=== PATIENT | female | born 1985 | race Caucasian/White ===

== ENCOUNTER → 2017-09-22 21:05 | Outpatient (CLI) | payer MEDICAID, SELFPAY | DX: G47.33 Obstructive sleep apnea (adult) (pediatric) (principal) | CPT/HCPCS: 95810 ==

== ENCOUNTER → 2017-12-14 13:08 | Outpatient (CLI) | payer MEDICAID, SELFPAY | DX: G47.33 Obstructive sleep apnea (adult) (pediatric) (principal) | CPT/HCPCS: 95811 ==

== ENCOUNTER 2018-08-11 09:30 | Outpatient (RCR) | payer MEDICAID, SELFPAY ==
--- NOTE | 2018-07-26 12:43 | HP.PTEVAL ---
Patient's Visit Information JEANNIE CADENA is a 33 year old F referred to Physical Therapy by KARISHMA Lynn with a diagnosis of Lumbar pain., FM. Date of Evaluation: 07/26/18 Physical Therapist: Filemon Hyde, DPT, OCS, CSCS - Visit Plan Frequency: 2x /Week Duration: 4-6 Weeks Plan: 2x/week x 3-6 starting in aquatic therapy for LB ext ROM, HS, gastroc, pec stretches, general postural and core and LE strength to tolerance. - Subjective Findings: Pain management wants scans and she has to try physical therapy. Had aquatherapy a couple years ago whcih did nto help. Has had pain in legs and arms for last couple years. Legs do feel weaker L>R. Backa nd neck hurt daily. Intermittently. Neck to 5/10 adn sometimes pain down to hands adn forearms. No numbness tingling UE. LB hurts i don't notice it It is just there LBP is worse on periods. 7/10, some days 0/10. No numbness or tingling in legs. Just started pain managemnet last January. Had it at a different visit prior. No other treatments. Gets pain meds from ER now and then. Sleep is not great 3-4 hours per night whcih is normal for her. Not overly painful in morning. Pain is worse with moving adn breathing. Repetitive motion. Standing in one position is worst part. Not employed. Just finished school. No hobbies. Spends day cleaning. Has to do it in moderation. Has OCD. - Pain neck pain Pain Intensity (Out of 10): 0 Pain Intensity Range: 0, 7 LBP Pain Intensity (Out of 10): 7 Pain Intensity Range: 0, 5 - Objective Walks I without deficits today. Trasnfers I. C/s aROM WNl and without pain today 60 ext, 70 B rotation, full flexion. Tender to palpation pericervical mm. reflexes 1/3 bi and tricep. Sensation UE WNl to gross light touch. L/S AROM ext max limited and painful R, R SB min limited and painful. L SB OK adn flexion is good. reflexes patella and achilles 1/3 B. Sensation LE WNl to gross light touch. Strength R knee ext 3+ to 4 inconsistent. HS 4- to 4 inconisstent, ankle DF 4- B. L knee 4/5. Hip 4/5 B. UE strength4-/5 without myotomal abnormalities. + R c/s Lumbar compression. - slump adn SLR. HS and gastroc mod tight as are pecs. - Goals Goal 1:: L/S ext min limitecd adn painfree Goal Time Frame: 4-6 Weeks Goal 2:: Pateint feel 50% better with pain 0-3/10 intermittently Goal Time Frame: 4-6 Weeks Goal 3:: Pt I in approp ex to minimize future problems. Goal Time Frame: 4-6 Weeks - Rehabilitation Potential Physical Therapy Diagnosis: FMa nd low back radiculapathy. Rehabilitation Potential: Questionable - Anticipated Interventions Patient/Client Instruction: Educate patient on: Condition, Plan of Care For the Purpose of:: To decrease pain, To increase ROM, To increase tolerance to activity/condition/position Therapeutic Exercise to Include: Strength training, Postural training, In an aquatic setting, Passive ROM, Active ROM, Dynamic Lumbar Stabilization For the Purpose of:: To improve muscle performance and motor function, To increase tolerance to activity/condition/position, To improve ability of physical actions for home/community/work/leisure Thank you for the opportunity to evaluate your patient. For Medicare and Medicare HMO plans, please review the plan of care and approve it. It will need to be FAXED BACK to us at [phone] for Medicare purposes. For Medicare only, by signing this I certify the plan of care. Please let me know if there are questions or concerns regarding this plan of care. Physician Signature: Date:
--- NOTE | 2018-08-18 11:03 | HP.PTDCSUM ---
HP - PT D/C Summary It has been my pleasure to treat JEANNIE CADENA under orders from SAMI LynnC, for the diagnosis of Lumbar pain., FM for a total of 4 visit(s). Discharge Date: 08/18/18 Please see the following information for a summary of their discharge status. - Subjective Subjective: States her pain was slightly improved after yesterday's AT visit. Feeling like, 20/10 pain today. Avoiding the ED or urgent care. - Pain neck pain Pain Intensity (Out of 10): 0 LBP Pain Intensity (Out of 10): 10 BLEs Pain Intensity (Out of 10): 10 - Overall Improvement % Improvement: 0 - Objective Objective/Function: Encouraged to go to urgent care or ED if pain persists/progresses. Reports entering water early than instructed at last appt - education on reasons to only get in the water 15 mins early. Able to tolerate several newly added trunk stabilization exc. Cues throughout for reduced shldr elevation, given as HEP assigment. Lacking awarness to neutral spine requiring cues mostly for abdominal bracing (particularly with wall push-ups), however also for glute bracing with DLP exc d/t upward buoyant pull of water on pt's LEs. - Goals Goal 1:: L/S ext min limitecd adn painfree Goal 2:: Pateint feel 50% better with pain 0-3/10 intermittently Goal 3:: Pt I in approp ex to minimize future problems. - Plan Plan: Progress UE Core to alternting arms next. Limit increased WBing and possibly add greater NWBing LE exc if pain remains elevated. - D/C Information Discharge Comments: Pt called to cancel all appointments stating she is in too much pain. She has had 3 in pool visits adn stated she was feeling sightly better at 20/10 pain. She reequested to be discharged. If there are questions or concerns regarding this patient's physical therapy, please feel free to call me at [phone]. Thank you for the referral of this patient. Sincerely, Filemon Hyde, DPT, OCS, CSCS
== END 2018-08-11 19:00 | disposition home or self-care (01) ==
LOC: PT 09:30
PROVIDERS: Referring Provider Nurse Practitioner Family; Visit Provider Nurse Practitioner Family
DX: M54.5 Low back pain (principal); M54.17 Radiculopathy, lumbosacral region; M46.96 Unspecified inflammatory spondylopathy, lumbar region; M79.7 Fibromyalgia
CPT/HCPCS: 97113; 97162

== ENCOUNTER → 2018-09-16 12:11 | Outpatient (CLI) | payer MEDICAID, SELFPAY ==
--- NOTE | 2018-09-16 12:16 | RAD_ITS ---
STUDY: X-RAY - LUMBAR SPINE REASON FOR EXAM: Female, 33 years old. Lower back pain TECHNIQUE: 3 view(s) of the lumbar spine were obtained. COMPARISON: None FINDINGS: Normal lumbar lordosis. There is no substantial scoliosis. There is a normal alignment of the vertebrae. Normal vertebral bodies and endplates. Normal disc space heights. The soft tissue structures are unremarkable. RAD/Lumbar Spine 2 or 3 Views IMPRESSION: Normal x-ray examination of the lumbar spine. Electronically Signed: Arnulfo Hancock, at 8:18 EDT Tel , Service support ,
== END ==
PROVIDERS: Referring Provider Nurse Practitioner Family; Visit Provider Nurse Practitioner Family
DX: M51.37 Other intervertebral disc degeneration, lumbosacral region (principal)
CPT/HCPCS: 72100

== ENCOUNTER 2018-12-20 07:57 | Emergency (ER) | payer MEDICAID, SELFPAY ==
[2018-12-20 07:59] VITALS: BP 145/112; PULSE 91; RESP 22; TEMP 36.5; O2SAT 98; BMI 54.8
--- NOTE | 2018-12-20 08:16 | ED.DCSUM_ITS ---
- ER Visit Summary Date of Service: 12/20/18 Chief Complaint: Cramping to her arms and legs. History of Present Illness: The patient is a 33 F with a history of chronic discomfort to her arms and legs a specific diagnosis. One time it might be fibromyalgia she states is gotten away from that diagnosis. Basically from time to time she will get crampy sensation and muscular and soft tissue aches of her upper and lower extremities. She denies any falls or trauma. Patient does have a history of anxiety and is on medications for that. Physical Examination: Vital signs are stable and afebrile. Initial blood pressure is elevated 145/112. Patient does not look septic or toxic. No acute distress. HEENT exam unremarkable. Moist membranes. Neck nontender no lymphadenopathy. Lungs clear to auscultation bilaterally. Heart regular rhythm no murmur. Abdomen is obese but soft and nontender. Normal bowel sounds. Patient is moving all 4 extremities. She describes her muscles and joints as being stiff and uncomfortable. However they are neurovascularly intact with normal radial pulses. Normal manager corporate communications strength. Normal dorsi plantar flexion. There are no signs of trauma. She does have sunburn on her upper extremities and shoulders. Back is nontender. Neurologically she is awake and alert. Test Results: No testing needs to be done today in the emergency department. Emergency Department Course and Treatment: Patient has acute on chronic musculoskeletal pain flareups. This is a chronic problem with her. She needs to follow-up for outpatient work-up and possible diagnosis. She denied discussed options she told me one time that Dilaudid and tramadol worked well for her. I explained to her this would not be something we would normally prescribe narcotic pain medication. She will be given an IM injection of Toradol and discharged. Treatment Plan: Motrin and Tylenol for pain. Plenty of fluids. Follow-up with primary care physician. Patient may need to see a air pollution auditor. Disposition: Discharge Impression: Acute on chronic musculoskeletal pain syndrome of uncertain This note was generated with Nearpod dictation software. It may contain incorrect words, spelling, and punctuation that were not noted in review of the chart prior to signing ED Disposition - Plan for ED Patient: Referrals: [facility] Doctor,Out of [Primary Care Provider] -
--- NOTE | 2018-12-20 08:19 | DCINST.ED_ITS ---
ED Disposition - Plan for ED Patient: Disposition: Home or Assisted Living Instructions: The Cycle of Chronic Pain Referrals: [facility],Out of [Primary Care Provider] - As soon as possible Additional Instructions: Motrin and Tylenol for pain. Plenty of fluids and rest. You may want your primary care physician to refer you to a carbon electrodes supervisor who is a specialist in joint and soft tissue inflammatory diseases that can work you up for a possible diagnosis.
[2018-12-20] MEDS: Ketorolac 60 MG/2 ML Vial IM (08:39)
== END 2018-12-20 08:50 | disposition home or self-care (01) ==
LOC: ED 08:25
PROVIDERS: Emergency Provider Emergency Medicine
DX: G89.4 Chronic pain syndrome (principal); M79.602 Pain in left arm; M79.601 Pain in right arm; M79.605 Pain in left leg; M79.604 Pain in right leg; F41.9 Anxiety disorder, unspecified; Z72.0 Tobacco use
CPT/HCPCS: 96372; 99282

== ENCOUNTER → 2019-08-23 07:43 | Outpatient (CLI) | payer MEDICAID, SELFPAY ==
--- NOTE | 2019-08-23 07:46 | RAD_ITS ---
STUDY: X-RAY - CERVICAL SPINE REASON FOR EXAM: Female, 34 years old. CHRONIC NECK PAIN, BILATERAL ARM PAIN -- NKI TECHNIQUE: 5 view(s) of the cervical spine were obtained. COMPARISON: 11/09/2014 FINDINGS: Normal anterior atlantoaxial articulation. Normal odontoid process. There is straightening of the normal cervical lordosis. Normal vertebral bodies and endplates. Normal disc space heights. Normal visualized intervertebral neuroforamina. The soft tissue structures are unremarkable. RAD/Cerv Spine 4 or 5 Views IMPRESSION: Straightening of the normal lordotic curvature possibly from muscular spasm. Electronically Signed: Alcides Jacob MD at 15:53 EST Tel , Service support ,
== END ==
PROVIDERS: Referring Provider Nurse Practitioner Family; Visit Provider Nurse Practitioner Family
DX: M54.2 Cervicalgia (principal)
CPT/HCPCS: 72050

== ENCOUNTER 2019-09-29 17:22 | Emergency (ER) | payer MEDICAID, SELFPAY ==
[2019-09-29 17:23] VITALS: BP 159/112; PULSE 117; RESP 18; TEMP 37.1; O2SAT 97; BMI 54.8
--- NOTE | 2019-09-29 17:43 | ED.VIS.GEN ---
History of Present Illness Chief Complaint: Hyperglycemia Informant: Patient Context: Gradual Onset Current Severity: Moderate Maximum Severity: Moderate Narrative: Patient presents secondary to elevated blood sugar along with increased thirst and increased urination. Last February she was placed on metformin because her psychiatrist and placed on Seroquel which will tend to make blood sugars increase. Seroquel dose was increased. Patient states she ran out of metformin about a month ago. She had been taking her blood sugars while on metformin and they were typically in the low 100 range. She states the highest blood sugar she remembers seeing is 180. She has now been out of metformin for the past month but is still taking her Seroquel. She has noted increased urination, increased thirst, and some mild diarrhea. She checked her blood sugar this afternoon and found it to be 470. Past Medical History - Allergies and Home Meds Allergies/Adverse Reactions: Allergies amitriptyline Adverse Reaction (Verified 09/29/19 17:26) NEEDS FOLLOW-UP duloxetine [From Cymbalta] Adverse Reaction (Verified 09/29/19 17:26) NEEDS FOLLOW-UP mirtazapine [From Remeron] Adverse Reaction (Verified 09/29/19 17:26) NEEDS FOLLOW-UP Primary Care Physician: [facility] Doctor,Out of [NON-STAFF] - Prior records reviewed: Yes Smoking Status: Current every day smoker Review of Systems General: Denies: Chills, Fever Eyes: Denies: Visual changes - bilaterally ENT: Denies: Bilateral ear pain Cardiovascular: Denies: Chest pain Respiratory: Denies: Dyspnea, Cough Gastrointestinal: Reports: Diarrhea. Denies: Abdominal pain, Nausea, Vomiting Genitourinary: Reports: Frequency. Denies: Dysuria Musculoskeletal: Denies: Myalgias, Extremity Pain Skin: Denies: Rash Neurological: Denies: Headache Endocrine: Reports: Polyuria, Polydipsia Allergy: Denies: Uticaria Physical Exam Vital Signs/Narrative: Vital Signs Temp Pulse Resp BP Pulse Ox 09/29/19 17:23 98.8 F 117 H 18 159/112 H 97 Inital Vital Signs reviewed: Yes General: Well nourished, Well developed Head: Normocephalic ENT: Dry mucous membranes Neck: Supple Cardiovascular: Regular rate, Regular rhythm Respiratory: No distress, CTA bilaterally Abdomen: Soft, Nontender Extremities: Nontender Skin: Normal color, No rash Neurological: Alert, Oriented x3 Psychological: Normal affect Diagnostic/Tx/Re-eval Laboratory Results 09/29/19 09/29/19 09/29/19 17:30 17:30 17:41 WBC 14.9 H RBC 4.59 Hgb 13.7 Hct 41.4 MCV 90.2 MCH 29.8 MCHC 33.1 RDW Std Deviation 42.5 RDW Coeff of [place] 13.1 Plt Count 364 MPV 9.5 Immature Gran % (Auto) 0.400 Neut % (Auto) 64.3 Lymph % (Auto) 30.1 [place] % (Auto) 4.8 Eos % (Auto) 0.0 Baso % (Auto) 0.4 Absolute Neuts (auto) 9.6 H Absolute Lymphs (auto) 4.48 Nucleated RBC % 0 Reactive Lymphocytes 1+ Platelet Estimate ADEQUATE Plt Morphology Comment LARGE RBC Morphology N CHROM Anisocytosis RARE Macrocytosis RARE Sodium 136 Potassium 4.0 Chloride 105 Carbon Dioxide 22.0 Anion Gap 9 BUN 9 Creatinine 0.92 Estim Creat Clear Calc 85.37 Est GFR (MDRD) Af Amer 90 Est GFR (MDRD) Non-Af 75 BUN/Creatinine Ratio 9.7 L Glucose 430 H Hemoglobin A1c Calcium 8.7 POC Glucose 419 H 09/29/19 17:50 WBC RBC Hgb Hct MCV MCH MCHC RDW Std Deviation RDW Coeff of [place] Plt Count MPV Immature Gran % (Auto) Neut % (Auto) Lymph % (Auto) [place] % (Auto) Eos % (Auto) Baso % (Auto) Absolute Neuts (auto) Absolute Lymphs (auto) Nucleated RBC % Reactive Lymphocytes Platelet Estimate Plt Morphology Comment RBC Morphology Anisocytosis Macrocytosis Sodium Potassium Chloride Carbon Dioxide Anion Gap BUN Creatinine Estim Creat Clear Calc Est GFR (MDRD) Af Amer Est GFR (MDRD) Non-Af BUN/Creatinine Ratio Glucose Hemoglobin A1c 9.0 H Calcium POC Glucose - Medical Decision Making Patient was ordered 2 L of IV fluid. After the first liter is complete she is asking if she can go home. Blood sugar is repeated and is down to 302. She states that she was able to nut picker a refill of her metformin will start taking this regularly. ED Disposition - Plan for ED Patient: Disposition: Home or Assisted Living Diagnosis: Hyperglycemia Instructions: Hyperglycemia (High Blood Sugar) Referrals: [facility],Out of [NON-STAFF] -
[2019-09-29 17:45] LABS: Bedside Glucose 419 mg/dL (70-110)
[2019-09-29] MEDS: 0.9% Normal Saline 1,000 ML 1000 ML IV (18:01)
[2019-09-29 18:02] LABS: Absolute Lymphocyte Count 4.48 X10^3/uL (0.83-4.51); Absolute Neutrophil Count 9.6 X10^3/uL (2.0-7.7); Basophil# 0.06 X10^3/uL; Basophil% 0.4 % (0-1); Hematocrit 41.4 % (37-47); Hemoglobin 13.7 g/dL (12.0-15.0); Lymphocyte # 4.48 X10^3/ul (4.0); Lymphocyte % 30.1 % (19-41); Mean Corp Hgb Conc 33.1 g/dL (32-36); Mean Corpuscular Hgb 29.8 pg (27.0-32.0); Mean Corpuscular Volume 90.2 fL (81-99); Mean Platelet Vol. 9.5 fl (6.2-12.0); Monocyte# 0.71 X10^3/uL; Monocyte% 4.8 % (0-10); NRBC Flagged by Analyzer 0 % (0-5); Neutrophil # 9.57 X10^3/uL (2.7-7.7); Neutrophil % 64.3 % (47-70); POSITIVE MORPHOLOGY YES; Platelet Count 364 K/mm3 (150-450); RBC Distribution Width CV 13.1 % (11.6-14.6); RBC Distribution Width SD 42.5 fl (35.1-43.9); Red Blood Count 4.59 M/mm3 (4.2-5.4); White Blood Count 14.9 K/mm3 (4.4-11.0)
[2019-09-29 18:11] LABS: Differential Indicated SCAN CRITERIA MET
[2019-09-29 18:31] LABS: Reactive Lymphocyte 1+
[2019-09-29 18:32] LABS: Anisocytosis RARE; Macrocytosis RARE; Platelet Estimate ADEQUATE (ADEQ); Platelet Morphology LARGE; Red Cell Morphology N CHROM NORMAL (NORM C&C)
[2019-09-29 18:35] LABS: Anion Gap 9 (5-15); BUN 9 mg/dL (7-18); BUN/Creat Ratio 9.7 RATIO (10-20); Calcium,Total 8.7 mg/dL (8.5-10.1); Chloride 105 mmol/L (98-107); Creatinine, Serum 0.92 mg/dL (0.55-1.02); EST Glomerular Filtration Rate 75 mL/min (>60); Est Glom Filt Rate - Afr Amer 90 mL/min (>60); Estimated Creatinine Clearance 85.37 ml/min; Glucose 430 mg/dL (74-106); Sodium Level 136 mmol/L (136-145)
[2019-09-29 19:26] LABS: Bedside Glucose 302 mg/dL (70-110)
[2019-09-29 19:36] LABS: Internal QC Validated? YES +Cl - CLEAR BKGD; Pregnancy, Serum, hCG Quali. NEGATIVE Negative
[2019-09-29 19:49] VITALS: BP 143/98; PULSE 99; RESP 16; O2SAT 98
== END 2019-09-29 19:51 | disposition home or self-care (01) ==
PROVIDERS: Emergency Provider Emergency Medicine
DX: R73.9 Hyperglycemia, unspecified (principal); F17.200 Nicotine dependence, unspecified, uncomplicated
CPT/HCPCS: 80048; 82962; 83036; 84703; 85025; 96360; 96361; 99283; J7030; A4216

== ENCOUNTER 2019-11-17 18:36 | Emergency (ER) | payer MEDICAID, SELFPAY ==
[2019-11-17 18:38] VITALS: BP 143/106; PULSE 106; RESP 19; TEMP 36.4; O2SAT 97; BMI 56.7
[2019-11-17] MEDS: Ondansetron 4 MG/2 ML Vial IV (19:54)
[2019-11-17] MEDS: Morphine 4 MG/ML Syringe IV (19:56)
--- NOTE | 2019-11-17 20:00 | RAD_ITS ---
STUDY: X-RAY CHEST REASON FOR EXAM: Female, 34 years old. Patient complains of back pain TECHNIQUE: Single AP portable view of the chest. COMPARISON: 10/08/2016. FINDINGS: The lungs are clear and expanded. There is no demonstrated pleural abnormality. Normal size heart. Normal mediastinum and patricia. Normal visualized pulmonary arteries. Normal visualized aortic arch and descending thoracic aorta. Normal visualized thoracic spine. Normal visualized ribs, clavicles, and shoulders. There is no demonstrated abnormality of the visualized soft tissue structures of the upper abdomen. RAD/Chest 1 View (Portable) IMPRESSION: Normal x-ray examination of the chest. Electronically Signed: Valentine Lawler MD at 20:28 EDT Tel , Service support ,
[2019-11-17 20:21] LABS: Anion Gap 6 (5-15); BUN 9 mg/dL (7-18); BUN/Creat Ratio 15.8 RATIO (10-20); Calcium,Total 9.1 mg/dL (8.5-10.1); Chloride 109 mmol/L (98-107); Creatinine, Serum 0.57 mg/dL (0.55-1.02); D-Dimer Quantitative (DVT/PE) 0.39 FEU/ug/m (0.27-0.49); EST Glomerular Filtration Rate 130 mL/min (>60); Est Glom Filt Rate - Afr Amer 157 mL/min (>60); Estimated Creatinine Clearance 137.79 ml/min; Glucose 137 mg/dL (74-106); Potassium 3.7 mmol/L (3.5-5.1); Sodium Level 140 mmol/L (136-145)
--- NOTE | 2019-11-17 20:46 | ED.VISSUMM ---
- ER Visit Summary Date of Service: 11/17/19 Chief Complaint: [Back pain] History of Present Illness: The patient is a 34 F [does the emergency department with complaint of back pain x5 days. Patient states that she recalls 5 days ago being in bed and stretching and arching her back and had sudden onset of pain in her left mid back. She denies any pain rating down her legs. She denies any change in bowel bladder function. She denies weakness in extremities. She denies urinary symptoms. Patient is currently in pain management for history of back spasms and she is on baclofen for that. She is currently not on any narcotics. She denies any recent travel or surgery. She does state that the pain is worse with breathing and moving.] Physical Examination: [HEENT-PERRLA, EOMI. Cranial nerves II through XII grossly intact. TMs clear. Mucous membranes moist. No adenopathy. Cardiovascular-regular rate and rhythm without murmur or ectopy Lungs-clear to auscultation, chest wall stable without crepitus or subcu emphysema Abdomen-normoactive bowel sounds, soft, nontender, no rebound or rigidity, no peritoneal signs. Back exam-patient has tenderness palpation over the left posterior ribs with tenderness also of the thoracic paraspinal musculature on the left. Palpation reproduces her pain. She has negative straight leg raises. Deep tendon reflexes are plus 2 out of 4 bilaterally at the patella Achilles. Patient has normal L5 extension. Extremities-intact ?4, normal range of motion, normal pulses, atraumatic] Test Results: [Chemistries unremarkable. D-dimer was normal. Chest x-ray was normal.] Emergency Department Course and Treatment: [Received 4 mg of morphine and 4 mg of Zofran IV.] Treatment Plan: [We will be given a prescription for 10 [place] for severe pain and advised to follow-up with her pain management doctor within the next 2 to 3 days.] Disposition: Discharged home in stable condition] Impression: [Thoracic muscle strain] This note was generated with Optimal Blue dictation software. It may contain incorrect words, spelling, and punctuation that were not noted in review of the chart prior to signing ED Disposition - Plan for ED Patient: Referrals: [facility] [Other]
--- NOTE | 2019-11-17 20:48 | DCINST.ED_ITS ---
ED Disposition - Plan for ED Patient: Instructions: ED Spasm Back No Trauma Prescriptions: Hydrocodone Bitart/Apap 5-325 [[place] 5MG-325MG] 1 tab PO Q4H PRN PRN 2 Days #10 tab PRN Reason: Pain Prescription Printed Referrals: [facility] BOW[facility] [Other] Additional Instructions: see your pain management doctor in 2-3 days
[2019-11-17 21:23] VITALS: BP 136/98; PULSE 84; RESP 20; O2SAT 98
--- OUTSIDE RECORDS SUMMARY | 2020-04-09 16:18 | XMS RPT_ITS | CCD ---
:1985 External Reference #:[id number] Author Organization [facility] Care Team Providers Name Role Phone Pavelko Unavailable Unavailable PROVIDER Unavailable Unavailable Pavelko Unavailable Unavailable BRIANNA, M Unavailable Unavailable PROVIDER Unavailable Unavailable Pavelko Unavailable Unavailable BRIANNA, M Unavailable Unavailable PROVIDER Unavailable Unavailable Pavelko Unavailable Unavailable GARCIA, (PST SUPERVISOR) Unavailable Unavailable KIRIT Unavailable Unavailable OCAMPO, S Unavailable Unavailable VETOVITZ, (PA) Unavailable Unavailable SALAS Unavailable Unavailable VETOVITZ, (PA) Unavailable Unavailable SALAS Unavailable Unavailable JEWELL, (PA) Unavailable Unavailable VETOVITZ, (PA) Unavailable Unavailable VETOVITZ, (PA) Unavailable Unavailable SALAS Unavailable Unavailable SALAS Unavailable Unavailable VETOVITZ, (PA) Unavailable Unavailable GARCIA, H Unavailable Unavailable OCAMPO, S Unavailable Unavailable SALAS Unavailable Unavailable SALAS Unavailable Unavailable OCAMPO, S Unavailable Unavailable OCAMPO, S Unavailable Unavailable Venkata M. Unavailable Unavailable Venkata, M. Unavailable Unavailable Foorsov Unavailable Unavailable Foorsov Unavailable Unavailable Pavelko, R Unavailable Unavailable Pavelko, R Unavailable Unavailable Foorsov Unavailable Unavailable Foorsov Unavailable Unavailable Pavelko, R Unavailable Unavailable Ackerman, A Unavailable Unavailable Ackerman, A Unavailable Unavailable Pavelko, R Unavailable Unavailable Pavelko, R Unavailable Unavailable Andrefsky, C Unavailable Unavailable Andrefsky, C Unavailable Unavailable Pavelko, R Unavailable Unavailable Andrefsky, C Unavailable Unavailable Andrefsky, C Unavailable Unavailable Pavelko, R Unavailable Unavailable Jazmín, R Primary Care Provider Allergies Reported Allergen Reaction(s) Severity Date of Onset Location amitriptyline Other (See Comments) 04-20-2017 - [facility] Translations: [ [facility] AMITRIPTYLINE HCL, Repositor y AMITRIPTYLINE HCL] Amitriptyline AOF [facility] on[facility] Translations: [ Elavil] [facility] Repository Amitriptyline 02-11-2015 - [facility]- [place]HA ([id number]) DULoxetine Other (See Comments) 04-20-2017 [facility] Translations: [ Main [facility] DULOXETINE, DULOXETINE] Repo sitory DULoxetine AOF Unknown [facility] nal Translations: [ Health Syste m Trenaalta] Repository DULoxetine 02-11-2015 - [facility]- [place] ([address]77) gabapentin Other (See Comments) Unknown 02-11-2015 [facility] Translations: [ Main [place] GABAPENTIN, GABAPENTIN, Repo sitory gabapentin] NO KNOWN ALLERGIES [facility] Translations: [ NO Main [place] us KNOWN ALLERGIES, NO Reposito ry KNOWN ALLERGIES] Medications Medication Name Sig Date Prescriber Location Baclofen baclofen (LIORESAL) 10 Historical [facility]- MG tablet Take 10 mg by Provider HA LONG ([id number]) mouth 2 times daily 0 Historical Active Provider Blood Glucose Blood Glucose 05-02-2018 [facility] alth- Monitoring Suppl Monitoring Suppl HA LONG (91942) (FREESTYLE FREEDOM (FREESTYLE FREEDOM LITE) w/Device KIT LITE) w/Device KIT Indications: Abnormal glucose 1 kit by Does not apply route daily 1 kit 0 05/02/2018 Active busPIRone busPIRone (BUSPAR) 10 Historical [facility]- MG tablet Take 10 mg by Provider HA LONG (45279) mouth 2 times daily 0 Historical Active Provider metFORMIN metFORMIN (GLUCOPHAGE) 10-06-2019 [facility]- 1000 MG tablet [place] (85357 ) Indications: Type 2 diabetes mellitus with hyperglycemia, without long-term current use of insulin (HCC) Take 1 tablet by mouth 2 times daily (with meals) 180 tablet 1 10/06/2019 Active nabumetone nabumetone (RELAFEN) Historical [facility] ealth- 500 MG tablet Take 500 Provider MERCEDES Darrell (45717) mg by mouth 2 times Historical daily 0 Active Provider Norethindrone norethindrone 09-26-2019 [facility]- (AYGESTIN) 5 MG tablet MERCEDES Darrell (30775) Take 1 tablet by mouth daily To be taken days 1-20 each month. 30 tablet 11 12/21/2019 Active Ondansetron ondansetron (ZOFRAN) 4 06-07-2018 [facility]- MG tablet Indications: Edu LONG Y (97542) Nausea Take 1 tablet by mouth 3 times daily as needed for Nausea or Vomiting 30 tablet 0 06/07/2018 Active pantoprazole pantoprazole (PROTONIX) 10-23-2019 [facility]- 40 MG tablet [place] (75337) Indications: Gastroesophageal reflux disease, esophagitis presence not specified Take 1 tablet by mouth every morning (before breakfast) 90 tablet 1 10/23/2019 Active pregabalin pregabalin (LYRICA) 100 Historical [facility]- MG capsule Take 100 mg Provider Edu LONG Y (79852) by mouth daily. 0 Historical Active Provider QUEtiapine QUEtiapine (SEROQUEL) Historical [facility]- 25 MG tablet Take 25 mg Provider HA LONG (44678) by mouth as needed 0 Active QUEtiapine (SEROQUEL XR) 150 MG Historical [place] ([address]) TB24 extended release tablet Take 150 mg by mouth daily 0 Active vortioxetine VORTIoxetine (TRINTELLIX) 5 MG 11-27-2019 [facility], [place] tablet Take 2 tablets by mouth (23862) daily 1 tablet 0 11/27/2019 Active Problems Active Problems Category Problem Name Status Date Location Abdominal pain Epigastric pain Active [facility] [place], [place] ([address]) Acute and chronic Hypertrophy of tonsils Active 09-18-2011 - [facility], tonsillitis AND adenoids [place] ([address]) Esophageal disorders Gastro-esophageal Active 05-28-2017 - [facility] reflux disease without (0000 0) esophagitis Mood disorders Major depressive Active 06-30-2016 - [facility] disorder, single (47841) episode, unspecified Other liver diseases Fatty (change of) Active 06-07-2017 - [facility] liver, not elsewhere (65844) classified Other nervous system Ulnar neuropathy Active 05-17-2017 - [facility], disorders [place] ([address]) Other nervous system Lesion of ulnar nerve, Active 05-01-2017 - [facility] disorders left upper limb (21300) Other nutritional; Obesity, unspecified Active 07-14-2017 - [facility] endocrine; and (78665) metabolic disorders Other nutritional; Morbid obesity [facility]-27-2017 [facility] [place] [place] ([address]) metabolic disorders Residual codes; Obstructive sleep apnea Active 09-18-2011 - [facility], unclassified syndrome [place] ([address]) Substance-related Nicotine dependence, Active 07-21-2017 - [facility] disorders unspecified, (69873) uncomplicated Unclassified Family history of other Active 04-27-2017 [facility] endocrine, nutritional (0000 0) and metabolic diseases Unclassified Unknown / UNK(Unknown) Active 02-22-2017 - [facility] (0000 0) Past or Other Problems Category Problem Name Status Date Location Allergic reactions Allergy status to Completed 07-21-2017 [facility] other drugs, System (28355) medicaments and biological substances status Biliary tract disease Calculus of Completed 06-07-2017 [facility] gallbladder with System (000 00) chronic cholecystitis without obstruction Chronic obstructive Bronchitis, not Completed 07-21-2017 [facility] pulmonary disease and specified as acute or System (17431) bronchiectasis chronic Medical Encounter for other Completed 05-28-2017 - [facility] alth examination/evaluation preprocedural Syst em (23252) examination Nonspecific chest pain Chest pain Completed 03-20-2019 - [facility] [place], [place] ([address]) Other connective tissue Muscle pain Completed 03-20-2019 - [facility] [place], disease [place] ([address]) Other connective tissue Fibromyalgia Completed 06-30-2016 [facility] [place], disease [place] ([address]) Other non-traumatic Pain in unspecified Completed 04-06-2017 - [facility] joint disorders joint (52166) Unclassified M79.7 02-22-2017 - [facility] ([address]) Results Result Name Value Range Unit Interpretation Flag Date Location us abdomen complete on 2020-03-08 US Abdomen Patient Name: KARISHMA PICKARD Normal 03-08-2020 [facility] Complete System (78638) Ultrasound Exam Date/Time 03/08/2020 08:05:00 EDT Exam US Abdomen Complete Ordering Physician OLIVE PRUITT Accession Number [id number] CPT4 Codes 96368 () Reason For Exam pain after eating Report SONOGRAM OF THE UPPER ABDOMEN History: Abdominal pain after eating, prior cholecystectomy Findings: Sonogram of the upper abdomen shows mild fatty carol er. The spleen, pancreatic head and proximal body, and visualized upper ab dominal aorta and IVC are unremarkable. The pancreatic tail and distal body could not be clearly visualized for proper evaluation due to degrading bowel gas artifacts. The gallbladder is not visualized (cholecystectomy). There i s no intrahepatic bile ducts dilatation. The common bile duct measures 3.5 mm in diameter . The partially visualized right and left kidneys measure 12 .3 x 4.4 x 5.3 cm and 11.9 x 5.8 x 7.1 cm respectively without hydronephrosis. The re is no ascites in the upper abdomen. IMPRESSION: Fatty liver. Cholecystectomy. No biliary dilatation. Pancreas is not adequately visualized. Report Dictated on Final Dictating Physician: MD SINGH AHMAD Signed Date and Time: 03/08/2020 9:02 am Signed by: MD SINGH AHMAD Transcribed Date and Time: 03/08/2020 9:03 No panel information on 2020-03-08 [facility] Incoming [facility]iology Results From [facility] - 2019 9:04 AM EDT 03-08-2020 [place], [place] ([address]) Patient Name: KARISHMA PICKARD ---Ultrasound--- Exam Date/Time 03/08/2020 08:05:00 EDT Exam US Abdomen Complete Ordering Physician OLIVE PRUITT Accession Number [id number] CPT4 Codes 66396 () Reason For Exam pain after eating Report SONOGRAM OF THE UPPER ABDOMEN History: Abdominal pain after eating, prior cholecystectomy Findings: Sonogram of the upper abdomen shows mild fatty carol er. The spleen, pancreatic head and proximal body, and visualized upper ab dominal aorta and IVC are unremarkable. The pancreatic tail and distal body could not be clearly visualized for proper evaluation due to degrading bowel gas artifacts. The gallbladder is not visualized (cholecystectomy). There i s no intrahepatic bile ducts dilatation. The common bile duct measures 3.5 mm in diameter . The partially visualized right and left kidneys measure 12 .3 x 4.4 x 5.3 cm and 11.9 x 5.8 x 7.1 cm respectively without hydronephrosis. The re is no ascites in the upper abdomen. IMPRESSION: Fatty liver. Cholecystectomy. No biliary dilatation. Pancreas is not adequately visualized. Report Dictated on --- Final --- Dictating Physician: MD SINGH AHMAD Signed Date and Time: 03/08/2020 9:02 am Signed by: MD SINGH AHMAD Transcribed Date and Time: 03/08/2020 9:03 Patient Name: KARISHMA PICKARD [place], [place] [id number] ([id number]) ---Ultrasound--- Exam Date/Time 03/08/2020 08:05:00 EDT Exam US Abdomen Complete Ordering Physician OLIVE PRUITT Accession Number [id number] CPT4 Codes 23090 () Reason For Exam pain after eating Report SONOGRAM OF THE UPPER ABDOMEN History: Abdominal pain after eating, prior cholecystectomy Findings: Sonogram of the upper abdomen shows mild fatty liver. The spleen, pancreatic head and proximal body, and visualized upper abdominal aorta and IVC are unremarkable. The pancreatic tail and distal body could not be clearly visualized for proper evaluation due to degrading bowel gas artifacts. The gallbladder is not visualized (cholecystectomy). There is no intrahepatic bile ducts dilatation. The common bile duct measures 3.5 mm in diameter . The partially visualized right and left kidneys measure 12.3 x 4.4 x 5.3 cm and 11.9 x 5.8 x 7.1 cm respectively without hydronephrosis. There is no ascites in the upper abdomen. IMPRESSION: Fatty liver. Cholecystectomy. No biliary dilatation. Pancreas is not adequately visualized. Report Dictated on --- Final --- Dictating Physician: MD SINGH AHMAD Signed Date and Time: 03/08/2020 9:02 am Signed by: MD SINGH AHMAD Transcribed Date and Time: 03/08/2020 9:03 crp on 2017-12-27 C reactive protein (CRP) 2.40 0.00-0.32 MG/DL High 12-27 [facility] (00 000) Comment: Order Comment: [facility]: Performed By: #### [id number] 0 ####[facility] [id number] [facility] [place], [place] [address]Wv# surgical pathology on 2017-07-21 Surgical [id number] [facility] PATHOLOGY Normal 07-21-[address] [facility] Pathology AND LABORATORY MEDICINE [address] [place] [address] [facility] SURGICAL PATHOLOGY S ystem REPORT NA ME: ([id number]) KARISHMA PICKARD .O.B.: 1985 32 Y F BILL ING NO.: [id number]: PAC1O 1PAC 59 PROCEDURE 07/21/2017 DATE:SURGEON: CHRISSY REED MD RECEIVED 07/21/2017 DATE: ATTENDING: CHRISSY REED MD REPORT DATE: 07/22/2017 COPIES TO: DIAGN OSIS:GALL BLADDER, CHOLECYSTECTOMY - C HRONIC CHOLECYSTITIS WITHCHOLELITHIASISJAW/0RW JANAE SIMON M.D. CLIN ICAL INFORMATION: CholelithiasisSPECIMEN: GALLBLADDER ___GROSS DESCRIPTION:GallbladderRec eived in formalin is an intact gallbladder measuring 11.0 x 4.0 x3.5 cm. The serosal aleshia face is pink-mccloud to yellow-mccloud. Upontransection, the lumen of the gallbladder contains thick, mucoid,dark-green bile and multiple calculi which aggregate to approximately6. 0 x 6.0 cm and measure up to approximately 1.2 cm in greatestdimension. The mucos a of the gallbladder is pink-chin and slightlyyellow-green bile stained. The wall of th e gallbladder averages 0.2 cmin thickness and contains no nodules. No calculi are seen within thecystic duct. Multiple route service representative sections are submitted in a singlecassett e. (bits ss, 1) JCK/MCDDisclaimer: The following statement applies to allimmunohistochemistry, in situ hybr idization, molecular studies, andimmunofluorescence testin g.The use of one or more reagents in the above tests is regulated as ananalyte specific reagent (ASR). T hese tests were developed and theirperformance characteris tics determined by the clinical laboratories [facility]. They have not been c leared by the US Food and DrugAdministration (FDA). The FDA has determined that such osiel arance orapproval is not necessary.All the above immunostains were performed on paraffin e mbedded tissue.Appropriate positive and negative controls (where applicable) were runi n parallel with the patient's specimen; these controls showed expectedstaining pattern, wi th acceptable intensity of staining.Immunohistochemical assays have not been validat ed on decalcifiedtissues. Results should be interpreted with caution given the raisedpossibility of false negativity on d ecalcified specimens.Professional Perfo rming Location: [place] [address] [place] [address]. DEPARTME NT OF PATHOLOGY AND LABORATORY MEDICINE [place], [place] [address] Comment: Performed By: #### ALESHIA ####P carlos alberto Frias is in report progress on 2017-06 PROGRESS HNO ID: [id number]: Richard Normal 07-15-2017 [place] MaritzaService: (none)Author Type: Clinic PhysicianType: Progress NotesFiled: Davidson 07/15/2017 9:09 AMNote Text:Richard ([id number]) Maritza [facility] [address] [place] [address]Enne: [phone] Jqntjaa 2017CHIEF COMPLAINT: Surgical Followup (6 weeks 1 day post op left ulnar nervedecompression).ASSESSMENT:G56.22 Ulnar neuropathy at elbow of left upper extremity (primaryencounter diagnosis)SUMMARY/PLAN:patient is 6 weeks status post left ulnar nerve decompression. She'sdoing well and states that she is somewhat better with her nighttimesymptoms, pain with driving, etc. She still having tingling in the digitsbut this is expected based on the severity of her preoperative nervetesting. She can continue activities as tolerated this point. Scarmanagement was noted.Exam:surgical site is healed nicely. Slightly thickened scar withoutcomplications. No signs of any problems. Neurovascular exam is grosslyintact to light touch. Full range of motion at the elbow.Supporting Information Below:Medications:Current Outpatient Prescriptions:sertraline (ZOLOFT) 100 mg tablet Take 100 mg by mouth once daily. [id number] mg dailybuPROPion XL (WELLBUTRIN XL) 300 mg 24 hr tablet Take 300 mg by mouth oncedaily.acetaminophen (TYLENOL) 500 mg tablet Take 1,000 mg by mouth every 8 hoursas needed.ondansetron (ZOFRAN, HYDROCHLORIDE,) 4 mg tablet Take 4 mg by mouthevery 8 hours as needed.hydrOXYzine HCl (ATARAX) 25 mg tablet Take 25 mg by mouth as needed (Cantake 1-4 per day as needed).traZODone (DESYREL) 50 mg tablet Take 50 mg by mouth daily at bedtime. 1-2at night as neededergocalciferol, vitamin D2, (VITAMIN D) 50,000 unit capsule Take 1 capsuleby mouth once each week.famotidine (PEPCID) 40 mg tablet Take by mouth.ibuprofen (MOTRIN) 800 mg tablet Take 1 tablet by mouth every 8 hours asneeded. FOR PAIN. (Patient not taking: Reported on 07/15/2017)HYDROcodone-acetaminophen (NORCO) 5-325 mg per tablet Take 1 tablet bymouth every 6 hours as needed. (Patient not taking: Reported on 07/15/2017)No current facility-administered medications for this visit.Allergies: Cymbalta [Duloxetine]; Elavil [Amitriptyline Hcl]; GabapentinThis note was partially generated using [employer] voice recognition system,and there may be some incorrect words, spellings, and punctuation thatwere not noted in checking the note before saving.Richard Salas MD PROGRESS HNO ID: [id number]: Rocio stovall 07-15-2017 [facility] Centerervice: (none)Author Type: (none)Type: Clinic Progress NotesFiled: 07/15/2017 9:09 [place] AMNote Text:Patient presents ([id number]) with:Surgical Followup: 6 weeks 1 day post op left ulnar nerve decompressionAMB ROOMING INTAKE FLOWSHEET DATARisk ScreeningDo you have concerns about personal safety or safety in the home?: NoPatient denies any pain but states at times she has a pinching in herelbow. Taking no med's for the pain. States she stopped wearing thecompression sleeve a week before [place]. cnov on 2017-07-15 CNOV Office Visit Normal 07-15-2017 [facility] (LAURA) --------KARISHMA PICKARD ([id number]) 1985 F CHTD ate Time Provider Department07/15/17 8:45 AM RICHARD SALAS During [facility] your visit today, we recorde d the following information about you:Rocio Baldwin Ma 07/15/2017 9:09 AM ([id number]) SignedPatient presents with: Surgical Followup: 6 weeks 1 day post op left ulnar nerve decompressionAMB ROOMING INTAKE FLOWSHEET KAYODE ARisk ScreeningDo you have concerns about personal safety or safety in the home?: NoPatient denies any pain but states at times she has a pinching in her elbow.Taking no med's for the pain. States she sto pped wearing the compression sleevea week before Joseph.Richard Salas MD 07/15/2017 9:09 AM SignedB deven Salas [facility] [address]sc[address]ummU[address] [place] [address]Eotb: [phone] Pcxmcbs 2017CHIEF COMPLAINT: Surgical Followup (6 weeks 1 day post op left ulnar nervedecompression).ASSESSMENT:G56.22 Ulnar neuropathy at elbow of left upper extremit y (primary encounterdiagnosis)SUMMARY/PLAN:patient is 6 weeks status post left ulnar nerve decompressi on. She's doingwell and states that she is somewhat better with her nighttime symptoms, painwith driving, etc. She still having tingling in the digits but this isexpected based on the severity of her preoperative nerve testing. She cancontinue activities as tolerated this point. Scar management was n oted.Exam:surgical site is healed nicely. Slightly thickened scar without complications. No signs of a ny problems. Neurovascular exam is grossly intact to lighttouch. Full range of motion at the elbow.Suppo rting Information Below:Medications:Current Outpatient Prescriptions:sertraline (ZO LOFT) 100 mg tablet Take 100 mg by mouth once daily. Takes 200 mgdailybuPROPion XL (WELLBUT RIN XL) 300 mg 24 hr tablet Take 300 mg by mouth oncedaily.acetaminophen (TYLENOL) 500 mg tablet Take 1,000 mg by mouth every 8 hours asneeded.ondansetron (ZOFRAN, HYDROCHLORIDE,) 4 mg tablet Take 4 mg by mouth every 8hours as needed.hydrOXYzine HCl (ATARAX) 25 mg tablet Take 25 mg by mouth a s needed (Can take1-4 per day as needed).traZODone (DESYREL) 50 mg tablet Take 50 mg by mouth daily at bedtime. 1-2 atnight as neededergocalciferol, vitamin D2, (VITAMIN D) 50,000 unit capsule Take 1 c apsule bymouth once each week.famotidine (PEPCID) 40 mg tablet Take by mouth.ibuprofen (MOTRIN) 800 mg tablet Take 1 tablet by mouth every 8 hours asneeded. FOR PAIN. (Patient not taking: Reporte d on 07/15/2017)HYDROcodone-acetaminophen (NORCO) 5- 325 mg per tablet Take 1 tablet by mouthevery 6 hours as needed. (Patient not taking: Reported on 07/15/2017)No current facility-administered medica tions for this visit.Allergies: Cymbalta [Duloxetine]; Elavil [Amitriptyline Hcl]; Gabapen tinThis note was partially generated using [employer] voice recognition system, andthere may be some incorre ct words, spellings, and punctuation that were notnoted in checking the note before saving.Richard villagran, MDReferring Provider: IDANIA AVILES) [[id number]]Allergies As of Date: 07/15/2017 Noted Al lergy ReactionCYMBALTA (DULOXETINE) 04/20/2017 14 - Other: See Comments Comments: Made her sluggishE LAVIL (AMITRIPTYLINE HCL) 04/20/2017 14 - Other: See Comments Comments: Made her sluggishGABAPENTIN 04/20/2017 14 - Other: See Comments Comments: Made her sluggishDate Reviewed: 07/15/2017Reviewed by: Rocio Baldwin Ma - Fully AssessedReason for Visit: Surgical Followup [104] Cmt: 6 weeks 1 day pos t op left ulnar nerve decompressionPrimary Visit Diagnosis:Ulnar neuropathy at elbow of left upper extre mity [G56.22]Prescriptions as of 07/15/2017 Sig: SERTRALINE 100 MG TABLET Take 100 mg by mouth once da i* BUPROPION XL 300 MG 24 HR TAB Take 300 mg by mouth once jana* ACETAMINOPHEN 500 MG TABLET Take 1,000 mg by mouth every * ONDANSETRON HCL 4 MG TABLET Take 4 mg by mouth every 8 ho* HYDROXYZIN E HCL 25 MG TABLET Take 25 mg by mouth as needed* TRAZODONE 50 MG TABLET Take 50 mg by mouth daily at * ERGOCALCIFEROL (VITAMIN D2) 5* Take 1 capsule by mouth once * FAMOTIDINE 40 MG TABLET Take by mouth. IBUPROFEN 800 MG TABLET Take 1 tablet by mouth every * Patient not taking: Reported on 07/15/2017 HYDROC ODONE 5 MG-ACETAMINOPHE* Take 1 tablet by mouth every * Patient not taking: Reported on 07/15/2017Problem List As Of Date 07/15/2017 Noted Resolved Tonsillitis, chronic [J35.01] INVALID FOR*05/28/2017 HILDA ( obstructive sleep apnea) [G47.33] INVALID FOR* T/A hypertrophy [J35.3] INVALID FOR*05/28/2017 Morbi d obesity (HCC) [E66.01] INVALID FOR* Fibromyalgia [M79.7] INVALID FOR* Depression [F32.9] INVALID F OR* Ulnar neuropathy at elbow of left upper extremi*INVALID FOR* More... GERD (gastroesophageal reflu x disease) [K21.9] INVALID FOR* Status:Closed by RICHARD SALAS MD on 07/15/17 glucose on Glucose mass conc 87 70-100 mg/dL Normal 07-14-2017 [facility] ([id number]) Comment: Performed By: #### GLUC3 ### [address] [address] progress on 2017-05 PROGRESS HNO ID: [id number]: Idania Arguello) No rmal 06-14-2017 Cedeñozion AvilesService: (none)Author Type: Clinic Physician AssistantType: Symone [place] NotesFiled: 06/14/2017 4:42 PMNote ([id number]) Text:KONSTANTIN [place]-epartment of [address]ks[address] [address]Iwqu: [phone] Rpgtegvp 2016CHIEF COMPLAINT: Recheck (1 weeks 5 days post ulnar nerve decompression-wound check).ASSESSMENT: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 She complains of continuous 8 out of 10 at all, aching,throbbing pain of her left elbow. She also reports some purulentyellow/brown drainage from her incision site. Patient tells me that shehas been using a heating pad on her forearm almost continuously for thepast several days. She also complains of pain with full extension of herelbow. It is clear that she has been holding the arm in flexion for thepast several days as her arm is wrapped in a makeshift tourniquet madefrom a sweatshirt. She tells me that she has been using Neosporin on theincision site. Has been taking 1-2 tablets of Mansfield every 4-6 hours alongwith Tylenol 1000 mg daily. Patient was advised to discontinue use of theheating pad, she was encouraged to use ice only on the elbow. Patient wasalso encouraged to gently stretch and extend elbow on a regular basis.Discontinue use of Neosporin, wash incision site with a mild soap andwater and pat dry. She was started on oral antibiotic and provided boex377 mg ibuprofen to be taken twice a day along with her Tylenol.Exam:Left elbow incision site is well approximated, incision edges are slightlypink with mild crusting. No evidence of any discharge, drainage orstreaking. Surrounding tissue is soft and non fluctuant or indurated.Patient is able to actively flexed elbow to 140?, able to extend elbow 5?extension with subjective pain. Sensation intact to light touch.Imaging:Deferred todayMs. Karishma Pickard was advised as to contrast therapies and/or to takeanalgesics/anti-inflammatories as needed and all contraindications werereviewed.Supporting Information Below:Medications:Current Outpatient Prescriptions:acetaminophen (TYLENOL) 500 mg tablet Take 1,000 mg by mouth every 8 hoursas needed.HYDROcodone-acetaminophen (NORCO) 5-325 mg per tablet Take 1 tablet bymouth every 6 hours as needed.ondansetron (ZOFRAN, HYDROCHLORIDE,) 4 mg tablet Take 4 mg by mouthevery 8 hours as needed.hydrOXYzine HCl (ATARAX) 25 mg tablet Take 25 mg by mouth as needed (Cantake 1-4 per day as needed).traZODone (DESYREL) 50 mg tablet Take 50 mg by mouth daily at bedtime. 1-2at night as neededergocalciferol, vitamin D2, (VITAMIN D) 50,000 unit capsule Take 1 capsuleby mouth once each week.amoxicillin (AMOXIL) 875 mg tablet Take 1 tablet by mouth twice daily for7 days.ibuprofen (MOTRIN) 800 mg tablet Take 1 tablet by mouth every 8 hours asneeded. FOR PAIN.famotidine (PEPCID) 40 mg tablet Take by mouth.No current facility-administered medications for this visit.Allergies: Cymbalta [Duloxetine]; Elavil [Amitriptyline Hcl]; GabapentinThis note was partially generated using [employer] voice recognition system,and there may be some incorrect words, spellings, and punctuation thatwere not noted in checking the note before saving.Idania Aviles PA-C PROGRESS HNO ID: [id number]: Carlie Michelle 06-14-2017 [place] Cheryl RNService: (none)Author Clinic Type: (none)Type: Progress NotesFiled: [place] 06/14/2017 4:42 PMNote Text:KRISTAL NUNEZ ([id number]) INTAKE FLOWSHEET DATARisk ScreeningDo you have concerns about personal safety or safety in the home?: NoPainPain Score: 8/10Pain Location: Elbow-LeftDescription: Dull, Aching, ThrobbingDuration Amount of Time: 5Duration Units: DaysFrequency: ContinuousIntervention: MedicationPatient presents with:Recheck: 1 weeks 5 days post ulnar nerve decompression- wound checkPt. states her entire left arm has been throbbing for the past 5 days. Shestates She states she had purulent yellow-brown drainage mid-incision, butincision presently well-approximated and without edema or exudate.Incision slightly pink. She states she has been using heating padconstantly and that Mansfield tabs 1-2 every 5-6 hours take pain to a 3, butdon't last' and has been supplementing with Tylenol 1000 mg at least oncedaily. Pt. reminded that she should not be taking more than 3000 mg per24 hours of acetaminophen and that each Mansfield has 325 mg in as well. Pt.verbalizes understanding. Her temp via temporal scanner is 99. She istearful. cnov on 2017-06-14 CNOV Office Visit Normal 06-14-2017 Kaylee and (LAURA) --------KARISHMA PICKARD dominick ([id number]) 1985 F CHTD ate Time Provider Ymqczeaqyk88/18/17 3:30 PM IDANIA AVILES (PA) During your visit today, we recorded the following information about you: Temperature 99 degreesLynette ([id number]) Cheryl ZAPIEN 06/14/2017 4:42 PM SignedAMB ROOMING INTAKE FLOWSHEET DATARisk ScreeningDo you have concerns about personal safe ty or safety in the home?: NoPainPain Score: 8/10Pain Location: Elbow-LeftDescription: Dull, Aching, ThrobbingDuration Amount of Time: 5Duration Units: DaysFrequency: ContinuousIntervention: Medi cationPatient presents with:Recheck: 1 weeks 5 days post ulnar nerve decompression- wound checkPt . states her entire left arm has been throbbing for the past 5 days. Shestates She states she had purulent yellow-brown drainage mid-incision, butincision presently well-approximated and withou t edema or exudate. Incisionslightly pink. She states she has been using heating pad constantly and t hatNorco tabs 1-2 every 5-6 hours take pain to a 3, but ANDquot;don't last' and hasbeen supplementing wi th Tylenol 1000 mg at least once daily. Pt. reminded thatshe should not be taking more than 3000 mg per 24 hours of acetaminophen andthat each Mansfield has 325 mg in as well. Pt. verbalizes understanding. He rtemp via temporal scanner is 99. 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 She a lso reports some purulent yellow/brown drainage from herincision site. Patient tells me that she boyce s been using a heating pad on herforearm almost continuously for the past several days. She also compl ains ofpain with full extension of her elbow. It is clear that she has been holdingthe arm in flexion fo r the past several days as her arm is wrapped in amakeshift tourniquet made from a sweatshirt. She tells me that she has beenusing Neosporin on the incision site. Has been taking 1-2 tablets of Norcoevery 4- 6 hours along with Tylenol 1000 mg daily. Patient was advised todiscontinue use of the heating pad, she was encouraged to use ice only on theelbow. Patient was also encouraged to gently stretch and extend el bow on aregular basis. Discontinue use of Neosporin, wash incision site with a mildsoap and water an d pat dry. She was started on oral antibiotic and providedwith 800 mg ibuprofen to be taken twice a day along with her Tylenol.Exam:Left elbow incision site is well approximated, incision edges are slightly pinkwith mild crusting. No evidence of any discharge, drainage or streaking.Surrou nding tissue is soft and non fluctuant or indurated. Patient is able toactively flexed elbow to 1 40?, able to extend elbow 5? extension withsubjective pain. Sensation intact to light touch.Imagin g:Deferred todayMs. Karishma Pickard was advised as to contrast therapies and/or to takeanalgesics/ant i-inflammatories as needed and all contraindications werereviewed.Supporting Info rmation Below:Medications:Current Outpatient Prescriptions:acetaminophen (TYLENOL) 500 mg tablet Take 1,000 mg by mouth every 8 hours asneeded.HYDROcodone-acetaminophen (NORCO) 5-325 mg per tablet Take 1 t ablet by mouthevery 6 hours as needed.ondansetron (ZOFRAN, HYDROCHLORIDE,) 4 mg tablet Take 4 mg by mouth every 8hours as needed.hydrOXYzine HCl (ATARAX) 25 mg tablet Take 25 mg by mouth a s needed (Can take1-4 per day as needed).traZODone (DESYREL) 50 mg tablet Take 50 mg by mouth daily at bedtime. 1-2 atnight as neededergocalciferol, vitamin D2, (VITAMIN D) 50,000 unit capsule Take 1 c apsule bymouth once each week.amoxicillin (AMOXIL) 875 mg tablet Take 1 tablet by mouth twice daily for 7days.ibuprofen (MOTRIN) 800 mg tablet Take 1 tablet by mouth every 8 hours asneeded. FOR PAIN.fam otidine (PEPCID) 40 mg tablet Take by mouth.No current facility-administered medica tions for this visit.Allergies: Cymbalta [Duloxetine]; Elavil [Amitriptyline Hcl]; Gabapen tinThis note was partially generated using [employer] voice recognition system, andthere may be some incorre ct words, spellings, and punctuation that were notnoted in checking the note before saving.KONSTANTIN Bautista-CReferring Provider: RICHARD SALAS [[id number]]Allergies As of Date: 06/14/2017 Noted Aller gy ReactionCYMBALTA (DULOXETINE) 04/20/2017 14 - Other: See Comments Comments: Made her sluggishE LAVIL (AMITRIPTYLINE HCL) 04/20/2017 14 - Other: See Comments Comments: Made her sluggishGABAPENTIN 04/20/2017 14 - Other: See Comments Comments: Made her sluggishDate Reviewed: 06/14/2017Reviewed by: Carlie Schofield RN - Fully AssessedReason for Visit: Recheck [92] Cmt: 1 weeks 5 days pos t ulnar nerve decompression- wound checkPrimary Visit Diagnosis:Ulnar neuropathy at elbow of left upper extremity [G56.22]Order(s):amoxicillin (AMOXIL) 875 mg tabletTake 1 tablet by mouth twice daily for 7 days.Disp: 14 tabletRfl: 0 ibuprofen (MOTRIN) 800 mg tabletTake 1 tablet by mouth every 8 hour s as needed. FOR PAIN.Disp: 40 tabletRfl: 0Prescriptions as of 06/14/2017 Sig: ACETAMINOPHEN 500 MG TA BLET Take 1,000 mg by mouth every * HYDROCODONE 5 MG-ACETAMINOPHE* Take 1 tablet by mouth every * ONDA NSETRON HCL 4 MG TABLET Take 4 mg by mouth every 8 ho* HYDROXYZINE HCL 25 MG TABLET Take 25 mg by mout h as needed* TRAZODONE 50 MG TABLET Take 50 mg by mouth daily at * ERGOCALCIFEROL (VITAMIN D2) 5* Take 1 capsule by mouth once * AMOXICILLIN 875 MG TABLET Take 1 tablet by mouth twice * IBUPROFEN 8 00 MG TABLET Take 1 tablet by mouth every * FAMOTIDINE 40 MG TABLET Take by mouth.Problem List As Of Kayode e 06/14/2017 Noted Resolved Tonsillitis, chronic [J35.01] INVALID FOR*05/28/2017 HILDA (obstruct michael sleep apnea) [G47.33] INVALID FOR* T/A hypertrophy [J35.3] INVALID FOR*05/28/2017 Morbid obesit y (HCC) [E66.01] INVALID FOR* Fibromyalgia [M79.7] INVALID FOR* Depression [F32.9] INVALID FOR* Ulnar n europathy at elbow of left upper extremi*INVALID FOR* More... GERD (gastroesophageal reflux dis ease) [K21.9] INVALID FOR*Prescriptions ordered this encounter Disp Refills Start End AMOXICILLIN 875 MG TABLET 14 t* 0 06/14/2017 06/21/2017 Route: ORAL Sig: Take 1 tablet by mouth twice daily for 7 days . IBUPROFEN 800 MG TABLET 40 t* 0 06/14/2017 Route: ORAL Sig: Take 1 tablet by mouth every 8 hours as ne eded. FOR PAIN. Status:Closed by IDANIA AVILES PA-C on 06/14/17 us abdomen complete on 2017-06-07 US Abdomen Complete Patient Name: Miguel Angel PICKARD 06-07-2017 [facility] FIN: System ([id number]) [id number] Ultrasound Exam Date/Time 06/07/2017 09:16:06 EST Exam US Abdomen Complete Ordering Physician Warren AVILA JENNIFER R Accession Number [id number] CPT4 Codes 10337 () Reason For Exam Calculus of gallbladder without cholecystitis without obstruction Report Indication: History of gallstones. Ultrasound of the abdomen was performed. The liver is dense consistent with fatty infiltration and/or hepatocellular disease. There are no focal intrahepatic masses. The gallbladder is visualized and contains several mobile shadowing stones. There is no evidence of gallbladder wall thickening or pericholecystic fluid. There is no intra or extrahepatic biliary ductal dilatation. The common bile duct measures 1 mm. The visualized portions of the pancreas are unremarkable. Cursory evaluation of the kidneys shows no evidence of hydronephrosis. The spleen is not enlarged. The proximal portions of the aorta and IVC are within normal limits. Impression: 1. Cholelithiasis. No sonographic evidence of acute cholecystitis. 2. Dense liver consistent with fatty infiltration and/or hepatocellular disease. Report Dictated on Final Dictated: 06/07/2017 11:28 am Dictating Physician: DO MENDOZA ANTHONY Signed Date and Time: 06/07/2017 11:30 am Signed by: DO MENDOZA ANTHONY Transcribed Date and Time: 06/07/2017 11:28 progress on 2017-05 PROGRESS HNO ID: [id number]: Idania Arguello) [facility]2017 [place] JennaService: (none)Author Type: Clinic Physician AssistantType: Symoen [place] NotesFiled: 06/07/2017 4:57 PMNote ([id number]) Text:KONSTANTIN Ragsdale-epartment of YfwtskhfswjrBazkvsjynvub[address] [facility] [address]Xenu: [phone] Qytibwld 2016CHIEF COMPLAINT: Established Patient (decompression ulnar nerve leftelbow, assess cast ).ASSESSMENT: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 Splint is very itchy and achy and iscausing her 10 out of 10 elbow pain at her incision site. We will removeher splint today and get her fitted with a compression sleeve. She wasadvised to avoid any heavy lifting, pushing, or pulling. Continue icingand ibuprofen for pain. We will see her back next month for her nextfollow-up.Exam:Arrives with a left long arm splint intact, splinted and pulled down andcovering hand and wrist. Incision site well approximated, withouterythema, discharge or drainage. No ecchymosis noted. Able to gently flexand extend elbow. Subjective numbness of left pinky finger.Imaging:Deferred todayMs. Karishma Neeraj was advised as to contrast therapies and/or to takeanalgesics/anti-inflammatories as needed and all contraindications werereviewed.Supporting Information Below:Medications:Current Outpatient Prescriptions:HYDROcodone-acetaminophen (NORCO) 5-325 mg per tablet Take 1 tablet bymouth every 6 hours as needed.ondansetron (ZOFRAN, HYDROCHLORIDE,) 4 mg tablet Take 4 mg by mouthevery 8 hours as needed.hydrOXYzine HCl (ATARAX) 25 mg tablet Take 25 mg by mouth as needed (Cantake 1-4 per day as needed).traZODone (DESYREL) 50 mg tablet Take 50 mg by mouth daily at bedtime. 1-2at night as neededergocalciferol, vitamin D2, (VITAMIN D) 50,000 unit capsule Take 1 capsuleby mouth once each week.famotidine (PEPCID) 40 mg tablet Take by mouth.No current facility-administered medications for this visit.Allergies: Cymbalta [Duloxetine]; Elavil [Amitriptyline Hcl]; GabapentinThis note was partially generated using [employer] voice recognition system,and there may be some incorrect words, spellings, and punctuation thatwere not noted in checking the note before saving.Idania Aviles PA-C PROGRESS HNO ID: [id number]: Naomie (Della) Normal 06-07-2017 [place] BALDO Ureñaervice: (none)Author Type: Clinic Registered NurseType: Progress NotesFiled: [place] 06/07/2017 4:57 PMNote Text:AMB ROOMING ([id number]) INTAKE FLOWSHEET DATAPainPain Score: 04/06Pain Location: Elbow-LeftDescription: BurningDuration Amount of Time: 5Duration Units: DaysFrequency: ContinuousPatient presents with:Established Patient: decompression ulnar nerve left elbow, assess castpatient is here on day 5 since surgery, stating that her splint has fallendown and that she thought she was pulling a piece of cotton, but when shepulled it she felt pain and assumed it was a suture. It was clear. Patientis guarding left arm.Naomie Ureña RN cnov on 2017-06-07 CNOV Office Visit Normal 06-07-2017 Kaylee and (LAURA) --------KARISHMA PICKARD ([id number]) 1985 F CHTD ate Time Provider Qmrgoooblz88/11/17 4:00 PM IDANIA AVILES (PA) During your visit today, we recorded the following information about you:Naomie Ureña RN, RN ([id number]) 06/07/2017 4:57 PM Kelle [facility] INTAKE FLOWSHEET DATAPainPain Score: 04/06Pain Location: Elbow-LeftDescription: Burni ngDuration Amount of Time: 5Duration Units: DaysFrequency: ContinuousPatient presents w ith:Established Patient: decompression ulnar nerve left elbow, assess castpatient is here on day 5 since surgery, stating that her splint has fallen downand that she thought she was pulling a piece of c otton, but when she pulled itshe felt pain and assumed it was a suture. It was clear. 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 Shetell s me that following her surgery she was very diligent about moving her handand icing, this caused t he swelling in her arm to decrease greatly which causeher splint to slide down over her wrist and it k eeps bumping the back of herelbow. Splint is very itchy and achy and is causing her 10 out of 10 elb owpain at her incision site. We will remove her splint today and get her fittedwith a compression sle veronique. She was advised to avoid any heavy lifting, pushing,or pulling. Continue icing and ibuprofen for pain. We will see her back nextmonth for her next follow-up.Exam:Arrives with a left long arm splint intact, splinted and pulled down andcovering hand and wrist. Incision site wel l approximated, without erythema,discharge or drainage. No ecchymosis noted. Able to gently flex a nd extendelbow. Subjective numbness of left pinky finger.Imaging:Deferred todayMs. Karishma Pickard was advised as to contrast therapies and/or to takeanalgesics/anti-inflamma tories as needed and all contraindications werereviewed.Supporting Information Below:Medication s:Current Outpatient Prescriptions:HYDROcodone- acetaminophen (NORCO) 5-325 mg per tablet Take 1 tablet by mouthevery 6 hours as needed.ondansetron (ZOFRAN, HYDROCHLORIDE,) 4 mg tablet Take 4 mg by mouth every 8hours as needed.hydrOXYzine HCl (ATARAX) 25 mg tablet Take 25 mg by mouth as needed (Can take1-4 per day as needed).traZODone (DESYREL) 50 mg tablet Take 50 mg by mouth daily at bedtime. 1-2 atnigh t as neededergocalciferol, vitamin D2, (VITAMIN D) 50,000 unit capsule Take 1 capsule bymouth once each week.famotidine (PEPCID) 40 mg tablet Take by mouth.No current facility-administered medica tions for this visit.Allergies: Cymbalta [Duloxetine]; Elavil [Amitriptyline Hcl]; Gabapen tinThis note was partially generated using [employer] voice recognition system, andthere may be some incorre ct words, spellings, and punctuation that were notnoted in checking the note before saving.KONSTANTIN Bautista-CReferring Provider: SELF [[id number]]Allergies As of Date: 06/07/2017 Noted Allergy ReactionCYMBAL TA (DULOXETINE) 04/20/2017 14 - Other: See Comments Comments: Made her sluggishELAVIL (AMITRIPTYLIN E HCL) 04/20/2017 14 - Other: See Comments Comments: Made her sluggishGABAPENTIN 7 14 - Other: See Comments Comments: Made her sluggishDate Reviewed: 06/07/2017Reviewed by: Isidra kim (Rn) DELLA Ureña - Fully AssessedReason for Visit: Established Patient [175] Cmt: decompression uln ar nerve left elbow, assess castReason For Visit History RecordedPrimary Visit Diagnosis:Ulnar neurop athy at elbow of left upper extremity [G56.22]Prescriptions as of 06/07/2017 Sig: HYDROCODONE 5 MG-ACETAMINOPHE* Take 1 tablet by mouth every * ONDANSETRON HCL 4 MG TABLET Take 4 mg by mouth ev magdalena 8 ho* HYDROXYZINE HCL 25 MG TABLET Take 25 mg by mouth as needed* TRAZODONE 50 MG TABLET Take 50 mg by mouth daily at * ERGOCALCIFEROL (VITAMIN D2) 5* Take 1 capsule by mouth once * FAMOTIDINE 40 M G TABLET Take by mouth.Problem List As Of Date 06/07/2017 Noted Resolved Tonsillitis, chronic [J35.01 ] INVALID FOR*05/28/2017 HILDA (obstructive sleep apnea) [G47.33] INVALID FOR* T/A hypertrophy [J35.3] INVALID FOR*05/28/2017 Morbid obesity (HCC) [E66.01] INVALID FOR* Fibromyalgia [M79.7] INVALID FOR* Depression [F32.9] INVALID FOR* Ulnar neuropathy at elbow of left upper extremi*INVALID FOR* M ore... 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 Patient to use [facility] Bedside Delivery - YES2. If fax, patient would like us to fax prescriptions to Pharmacy ofchoice a. Pharmacy: b. Location: c. Phone:3. Insurance card on file - YES4. Credit card for payment - YESPHARMACY BEDSIDE DELIVERY SERVICEPatient Name: Karishma PickardMRN: [id number] marked outpatient medications were Filled at: [place] and delivered tothe patient's bedside to pharm p/uMedication ListSTART taking these medicationsX HYDROcodone-acetaminophen 5-325 mg per tabletCommonly known as: NORCOTake 1 tablet by mouth every 6 hours as needed.CONTINUE taking these medications ergocalciferol (vitamin D2) 50,000 unit capsuleCommonly known as: Vitamin DTake 1 capsule by mouth once each week. famotidine 40 mg tabletCommonly known as: PEPCID hydrOXYzine HCl 25 mg tabletCommonly known as: ATARAX traZODone 50 mg tabletCommonly known as: DESYREL ZOFRAN ( HYDROCHLORIDE) 4 mg tabletGeneric drug: ondansetronSalome [facility] (B[facility] Operator)PAGER: [phone] 2016 12:12 PM operative no on 01-06-06 OPERATIVE NO HNO ID: [id number]: Richard celis 06-02-2017 [place] PierceService: [facility] SurgeryAuthor Type: PhysicianType: ([id number]) Operative ReportFiled: 06/02/2017 10:46 AMNote Text:OPERATIVE/PROCEDURE REPORTLOG ID: [id number]/Procedure Date: 06/02/2017Incision/Procedure Start Time: 9:45 AMIncision Close/Procedure End Time: 10:29 AMSurgeon(s)/Proceduralist(s) and Java Technical Architect(s):Surgeon(s) and Role: * Richard Salas - PrimaryRegistered Nurse Commercial Construction Superintendent: Jeanie (Rn) Aron, RNProcedure(s):Left ulnar nerve decompression at the elbow.Anesthesia: LMA general With local.Procedure Details:On June 02, 2017, the patient was clearly identified in thepreoperative area and marked accordingly on the left elbow by myself. Shewas taken to the operative suite and placed in the supine position with anarmboard on the left. She received 3g of Ancef in the IV within 1 hour ofincision or tourniquet. Anesthesia assumed care of the head and neck forthe remainder of the case and began a MAC anesthetic. All other bonylandmarks were appropriately padded in standard fashion. The upperextremity had a well-padded upper brachium tourniquet applied with Webrilpadding and set at 250 mmHg, but not yet inflated. The arm was thensterilely prepped and draped in standard fashion. An appropriate time-outwas conducted and all in the room were in agreement, signed consent formwas on the chart. The upper extremity was exsanguinated with an Esmarchbandage and the tourniquet was applied at 250 mmHg. local anesthetic with1% lidocaine with 1:100,000 epi was provided at the elbow over the medialportion. An incision was made with a 15 blade localized over the medialepicondyle for approximately 3 cm. Skin bleeders were taken care of withbipolar electrocautery. Tenotomy scissors were used to bluntly dissectdown through quite a bit of adipose tissue, eventually to the fasciaoverlying the ulnar nerve. The antebrachial cutaneous nerve branches wereidentified and protected throughout the case. Using both a 15 blade aswell as bipolar electrocautery, I divided the fascia overlying the ulnarnerve at the cubital tunnel and worked my way distally. The fascia wasincised over the top of the nerve and appropriate nerve handling techniquewas used. Dissection was taken down to the fascia overlying the FCUmuscle belly. Blunt dissection was taken to the fibers until the firstmotor branch was identified of the ulnar nerve. I then worked my wayproximally. There was a leash of vessels overlying the nerve justproximal to the cubital tunnel. these were ligated, freeing up the nervefrom below. I continued the worked my way for 6 cm proximal to the medialcondyle. The intermuscular septum was palpated but was not felt to be apoint of irritation or constriction of the nerve. Now that the nerve wascompletely released, I brought the elbow through a full range of motionand there was no subluxation of the nerve. The wound was copiouslyirrigated and the tourniquet was taken down. Hemostasis was observed withbipolar electrocautery. the wound was copiously irrigated and the skinedges were closely approximated with 3-0 Biosyn suture and final closurewith 4-0 Biosyn suture, Steri-Strips, Xeroform gauze, sterile 4 x 4's, andABDs and a well fashioned posterior, fiberglass splint with plenty ofcotton padding, light Kevin wrap and Brandon bandage. There were nocomplications during the procedure. 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]Estimated Blood Loss: 0 mlSpecimens: NoneImplantable Devices: NoneDrains: NoneComplications: NoneI performed the entire procedure.SIGNATURE: Richard Slaas MD PATIENT NAME: Karishma PickardDATE: June 02, 2017 : 10:44 AM PAGER/CONTACT #: nursing prog on 01-06-06 NURSING HNO ID: [id number]: [place] (Rn) BALDO Arvizuervice: (none)Author Type: Bena 06-02-2017 [place] SILVA Registered NurseType: Taurus lópez Progress NoteFiled: 06/02/2017 8:01 AMNote Text: Hospital Nursing Progress NotePatient Name: Karishma Taylor nMRN: [id number] Location: ([address]) CT Surgery/CT Surgery Pt ready for OR. Preg test negative, skin w arm and dry. Left arm coveredwith wrap for alerting purposes. Dr. Wyman to bedside to talk wi thpt. Pt laughing and joking. No concerns.This note was completed by: Denise Arvizu RN anes preop on 06-02 ANES PREOP HNO ID: [id number]: Keith Normal 06-02-2017 Brionna WymanService: [facility]iologyCentral [facility] Type: AnesthesiologistType: Anesthesia ([id number]) PreOpFiled: 06/02/2017 7:56 AMNote Text: ANESTHESIOLOGY DAY OF SURGERY NOTESERVICE DATE: 06/02/2017SERVICE TIME: 7:56 AMDOB: 1985Procedure(s) (LRB):DECOMPRESSION NERVE ULNAR ELBOW (Left)Surgeon(s):Richard SalasEstimated body mass index is 55.6 kg/(m2) as calculated from thefollowing: Height as of this encounter: 170.2 cm (5' 7). Weight as of this encounter: 161 kg (355 lb).Most recent hematocrit and potassium results:Hematocrit 42.3 05/28/2017Potassium 3.6 05/28/2017ANES DOS/PREOP NOTE: Vitals: 107495Fqhcft: (!) 161 kg (355 lb)Height: 170.2 cm (5' 7)ACTIVE PROBLEM LISTOsa (Obstructive Sleep Apnea)Morbid Obesity (Hcc)FibromyalgiaDepressionUlnar Neuropathy At Elbow of Left Upper ExtremityGerd (Gastroesophageal Reflux Disease)PAST MEDICAL HISTORYDiagnosis Date- Depression 01/27/2017- GERD (gastroesophageal reflux disease)- Morbid obesity (HCC)- Obstructive sleep apnea Not on CPAPPAST SURGICAL HISTORYProcedure Laterality Date- APPENDECTOMY 08/2010- PAST SURGICAL HISTORY OF tonsilsFAMILY HISTORYProblem Relation Age of Onset- Multiple Sclerosis Mother- Stroke Father- Arthritis Paternal Grandfather- Cancer Paternal Grandfather skin- Emphysema Paternal Grandfather- Heart Paternal Grandmother- multiple sclerosis [OTHER] Maternal Aunt- Multiple Sclerosis Maternal GrandmotherSocial History:Social HistorySubstance Use Topics- Smoking status: Current Every Day Smoker Packs/day: 0.50 Types: Cigarettes Start date: 06/28/2007- Smokeless tobacco: Never Used- Alcohol use NoNo current facility-administered medications on file prior to encounter.Current Outpatient Prescriptions on File Prior to Encounter:ondansetron (ZOFRAN, HYDROCHLORIDE,) 4 mg tablet Take 4 mg by mouthevery 8 hours as needed.hydrOXYzine HCl (ATARAX) 25 mg tablet Take 25 mg by mouth as needed (Cantake 1-4 per day as needed).traZODone (DESYREL) 50 mg tablet Take 50 mg by mouth daily at bedtime. 1-2at night as neededergocalciferol, vitamin D2, (VITAMIN D) 50,000 unit capsule Take 1 capsuleby mouth once each week.famotidine (PEPCID) 40 mg tablet Take by mouth.Current Facility-Administered Medications:lactated ringers infusion 5-30 mL/hr INTRAVENOUS CONTINUOUS Idania (Pa)VetovitzceFAZolin 3 g in sterile water 30 mL (ANCEF) 3 g INTRAVENOUS Pre-Op OnceSondra (Pa) VetovitzAllergies:ALLERGIESAllergen Reactions- Cymbalta [Duloxetin* Other: See Comments Made her sluggish- Elavil [Amitriptyli* Other: See Comments Made her sluggish- Gabapentin Other: See Comments Made her sluggishDOS EXAM: Adequate NPO status: YesAnesthetic risks, benefits, alternatives, personnel and consent discussed:YesPatient agrees to proceed: YesPrevious Anesthesia: No history of adverse event.Airway Assessment: MP 2; Neck ROM: Full ROM without neurologic symptoms;Airway Evaluation: No significant abnormalitiesSymptoms of Sleep Apnea: NoneDentition: Teeth intactAdditional Physical Exam:Lungs: Patient health status unchanged since recent history and physical.See history and physical for exam findings.Cardiac: Patient health status unchanged since recent history andphysical. See history and physical for exam findings.Additional Pertinent Findings: N/ABlood Products: Not anticipated for this procedure.Anesthetic Plan: GenPain Management Plan: Parenteral or OralASA Class: 3Other Medical Problems:osaChronic Beta [place] medication administered within 24 hours: N/AI have interviewed and examined the patient. I have reviewed the medicalrecord and/or the pre-anesthesia evaluation, pertinent labs, and testresults.Significant changes in the patient's condition since the History andPhysical, not otherwise documented in primary service progress notes: NoThis contains updated information obtained within 48 hours ofSurgery/Procedure.SIGNATURE: Keith Wyman MD PATIENT NAME: Karishma ArmendarizTE: June 02, 2017 : 7:56 AM CSN: [id number] anes post on 2016-06 ANES POST HNO ID: [id number]: Keith Michelle [facility]-02-2017 [facility] HospitalService: ([phone]) AnesthesiologyAuthor Type: AnesthesiologistType: Anesthesia PostOpFiled: 06/02/2017 1:14 PMNote Text:POST ANESTHESIA EVALUATION NOTESERVICE DATE: 06/02/2017SERVICE TIME: 1130DOB: 1985Vitals: Temp: 36.9 ?C (98.4 ?F) 06/02/1711BP: 111/59 117/59 113/59 123/59 06/02/1711Pulse: 78 68 79 76 06/02/1711Resp: 16 16 16 16 06/02/1711SpO2: 99% 98% 99% 98%Validated Vital Signs: YesPOST ANES STATUS: No apparent anesthetic complications. The patient isappropriately hydrated with stable respiratory and cardiovascular status.Patient has safe and adequate airway control. The patient has appropriatepain relief and no significant post operative nausea or vomiting. Thepatient has achieved baseline mental status.Further assessment by Anesthesia Service: NoneOther Remarks:SIGNATURE: Keith Wyman MD PATIENT NAME: Karishma ArmendarizTE: June 02, 2017 : 1:14 PM PAGER/CONTACT #: [phone] nursing prog on 01-07-04 NURSING PROG HNO ID: [id number]: Brook Noelle guadalupe 05-31-2017 [facility] (Rn) BALDO Guerreroervice: ([phone]) (none)Author Type: Registered NurseType: Nursing Progress NoteFiled: 06/01/2017 2:13 PMNote Text:PACC Nurse Progress NoteHistory AND Physical:PACC [place] PACCOriginal HANDP Date: 05/28/17Labs Within Last 6 Months:CBC: Date 05/28/17 cbc/diff- wbc elevated-provider requested notify surgeon--faxed to office.,Platelets elevated 537BMP/CMP: Date 05/28/17 bmp- BS 109, K+ 3.6Imaging Within Last 12 Months:N/ACardiac Testing:N/ALast Menstrual Period:LMP Date: 05/09/17Postmenopausal >1yr: No,S/P Hysterectomy: NoBMI 55.6Risk Assessment:N/AAnesthesia Review:HX HILDA- no cpapNarrative:N/APre-op Considerations:N/AChart Check:IN PROGRESS Surgeon (faxed ) notified of elevated WBC of 15.2 perprovider request. Provider indicated pt denied illness at time of PACCand WBC has steadily increased over past 7 yrs.Jose Shoemakercembignacio 2016 4:33 PM06/01/17 2 pm Spoke with Naomie at Dr Salas office this am and she willmessage Dr Salas/ KONSTANTIN Ragsdale of elevated WBC's. Response fromKONSTANTIN López--Chronic leukocytosis, previous cbc'd with elevated WBC's.She has consulted with hematology in the past. As long as she isasymptomatic we can proceed. Chart check complete DELLA Drummond history physical on 2017-05-28 HISTORY HNO ID: [id number]: Maritza Arguello) No rmal 05-28-2017 [place] PHYSICAL KnoxService: (none)Author Type: Clinic Physician AssistantType: HANDPFiled: [place] 05/28/2017 2:40 PMNote Text:HISTORY ([id number]) AND PHYSICAL EXAMINATIONSERVICE DATE: 05/28/2017SERVICE TIME: 1:21 [facility] PHYSICIAN: CHINYERE Decker FOR VISIT:Karishma Pickard is a 32 year old female who is scheduled for Lt ulnar nervedecompression possible transposition at the request of Dr. Richard Salasfor consultation. My final recommendation will be communicated back tothe requesting physician by way of shared medical record or letter.The patient has the following:ACTIVE PROBLEM LISTOsa (Obstructive Sleep Apnea)Morbid Obesity (Hcc)FibromyalgiaDepressionUlnar Neuropathy At Elbow of Left Upper ExtremityGerd (Gastroesophageal Reflux Disease)SUBJECTIVECHIEF COMPLAINT: LUE painHPI:Karishma Pickard is a 32 year old female that presents c/o a 5 month historyof LUE pain that has worsened with time. No injury and no previous surgeryon arm..Pain is constant and described as throbbing in nature. Also described as apressure. Pain does radiates down arm. +numnbness and tingling in hand.RHD.Aggravating factors include any movement and typing.Alleviated by rest.Previous treatments include ice, heat, NSAID.Denies recent illness, fever or chills.PAST MEDICAL HISTORYDiagnosis Date- Depression 01/27/2017- GERD (gastroesophageal reflux disease)- Morbid obesity (HCC)- Obstructive sleep apnea Not on CPAPPAST SURGICAL HISTORYProcedure Laterality Date- APPENDECTOMY 08/2010- PAST SURGICAL HISTORY OF tonsilsFAMILY HISTORYProblem Relation Age of Onset- Multiple Sclerosis Mother- Stroke Father- Arthritis Paternal Grandfather- Cancer Paternal Grandfather skin- Emphysema Paternal Grandfather- Heart Paternal Grandmother- multiple sclerosis [OTHER] Maternal Aunt- Multiple Sclerosis Maternal GrandmotherSOCIAL HISTORY:Social History Marital status: Single Spouse name: Years of education: 15 Number of children: 0Occupational HistoryOccupation Employer 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 YeshydrOXYzine HCl (ATARAX) 25 mg tablet Take 25 mg by mouth as needed (Cantake 1-4 per day as needed). YestraZODone (DESYREL) 50 mg tablet Take 50 mg by mouth daily at bedtime. 1-2at night as needed Yesergocalciferol, vitamin D2, (VITAMIN D) 50,000 unit capsule Take 1 capsuleby mouth once each week. Yesfamotidine (PEPCID) 40 mg tablet Take by mouth. YesNo medication comments found.ALLERGIESAllergen Reactions- Cymbalta [Duloxetin* Other: See Comments Made her sluggish- Elavil [Amitriptyli* Other: See Comments Made her sluggish- Gabapentin Other: See Comments Made her sluggishREVIEW OF SYSTEMS:PAIN ASSESSMENT:General: No weight loss, malaise or fevers.Neuro: See HPI; +HAs due to stress; arm AND leg tremors with fatigue; No CVAor seizureRespiratory: HILDA-no machine; bronchitis yearly; No history of currentcough, dyspnea, bronchitis or pneumonia in the last 6 weeks. No history ofasthma or COPD.Cardiovascular: h/o dizziness-last episode 1 month ago; +BLE edema;Negative for chest pain, orthopnea, PND, lightheadedness or syncope.Negative for heart murmur. Negative for palpitations or arrhythmia.Negative for h/o DVT/PE. Negative for IL or heart surgery.EKG 2008:Heart Rate 84P-R Interval 164QRSD Interval 96QT Interval 384QTC Interval 454P [place] 15I: 40 [place] -2T: 40 [place] 79QRS [place] 29ST [place] 267T Wave [place] -17EKG Severity - ABNORMAL ECG -SINUS RHYTHMnormal P axis, V-rate ?50- 99NONSPECIFIC T ABNORMALITIES, DIFFUSE LEADST <-0.10mV, ant/lat/infGI: +GERD on RX; No PUD or liver disease. No ETOHGU: No history of dysuria, frequency or incontinence,, stones or chronickidney diseaseGYN: Negative for abnormal vaginal bleeding, abnormal vaginal discharge. : Denies, Patient's last menstrual period was 05/09/2017.Endocrine: No history of diabetes. Has not taken steroids within the past30 days. No history of endocrinological symptoms or problems.Hematology: No history of bleeding or clotting disorder. Pt is not takinganti-coagulation or platelet medications. No history of hematologicalsymptoms or problems.Oncology: No history of CA metastasis, chemo within 30 days, orradiotherapy within 90 days. Has not lost 10% of body wt in 6 months. Nohistory of oncological symptoms or problems.Psych: Anxiety-Hydroxyzine prnMusculoskeletal: Back pain and Joint painSkin: Negative for lesions, rash and itching.OBJECTIVEPHYSICAL EXAM:VITALS:BP 128/84 Pulse 114 Temp (Src) 98 (Temporal Artery) Ht 5' 7 (1.70m) Wt 355 lb (161.0kg) SpO2 97% LMP 05/09/2017 BMI 55.59 kg/(m2).General: Alert and oriented, No acute distress, Morbidly obeseSkin: Normal color, no rash, no lesions.HEENT: EOM, pupils equal, round and reactive., No carotid bruitsCardiovascular: Normal S1 AND S2, no rubs, murmurs or gallops. No JVD. Pulseregular.Lungs: Normal breath sounds, no wheezes or crackles., No chest deformitiesor chest wall tenderness.Abdomen: Soft, non-tender, no rigidity., No masses or organomegaly.Extremities: No deformity, no edema or tenderness, no joint swelling orclubbing.Neurological: Normal cognition and motor skills. Gait normal. Noweakness or sensory deficit.Pulses: Carotid and radial pulses normal +2.Diagnostic tests reviewed for today's visit: Lab Value Units Date High Low HB No results within date range. HCT No results within date range. WBC No results within date range. PLT No results within date range. NA No results within date range. K No results within date range. GLUC No results within date range. BUN No results within date range. CREAT No results within date range. PTSEC No results within date range. INR No results within date range. APTT No results within date range. ALT No results within date range. AST No results within date range. TBILI No results within date range. TSH 1.420 uU/mL 04/20/2017 5.500 0.400 Lab Value Units Date High Low HCGQT No results within date range. UHCG No results within date range. HCG, BODY* No results within date range. Lab Value Units Date High Low ABORHD No results within date range. ABSCREEN No results within date range.Hemoglobin A1C (%)Date Value12/26/2013 6.1 Most recent labsMost recent imagingMost recent EKG: see [facility] in EpicAssessmentASSESSMENTPatient has the following medical conditions:Morbidly obese-BMI 55.73KMFW-tsgdveoWsibcel-CK prnOSA no machineLUE painMETS:Do moderate work around the house such as vacuuming, sweeping floors, orcarrying in groceries (3.50 METs)Patient denies any chest pain or undue shortness of breath with the abovephysical activity.ASA Class: 3ANESTHESIA FINDINGS:Intubation History: No history of difficult intubationSignificant Anesthesia Considerations: Slow emergenceAirway Exam: General: Morbid obesity Mallampati Score is CLASS II ULBT: Class I - Lower incisors can bite the upper lip above thevermillion line Neck: Normal appearance and function, Distance from hyoid to mentumduring neck extension is at least 3 finger breaths, Short neck, thick neck Mouth: Normal tongue size and Mouth opening greater than 2 finger breaths Dentition: IntactAirway History: No abnormal airway historySTOP BANG Score: HILDA does not use CPAP/BiPAPPLANThis patient is optimally prepared for surgery pending LABS.CONSULTS:Patient does not require consults for optimization at this time.The Following Tests/Procedures Have Been Initiated:Orders Placed This Encounter CBC + DIFF BASIC METABOLIC PNLPlanned Anesthetic: GeneralInstructions Given to Patient:Patient given verbal and written preop instructions and voicescomprehension and compliance.SIGNATURE: Maritza Jewell PA-C PATIENT NAME: Karishma PickardDATE: May 28, 2017 : 1:21 PM PAGER/CONTACT #: cbc and differential on 2017-05-28 Abs Baso 0.07 <0.11 k/uL Normal 05-28-2017 [facility] ([id number]) Comment: Performed By: #### Reese CARTWRIGHT ####[facility] [place], [place] [phone]- [phone] Abs Guthrie 0.85 <0.87 k/uL Normal 05-28-2017 [facility] (10809) Comment: Performed By: #### CBCDIF, B MP ####[facility], [place] [phone]- [phone] Abs Neut 10.09 1.45-7.50 k/uL High 05-28-2017 [facility] (39526) Comment: Performed By: #### CBCDIF, B MP ####[place] [address]ClevelandSan [place], [place] [phone]- [phone] Basophils/100 WBC Auto (Bld) 0.5 % Normal 1 07-29-2016 [facility] (27298) Comment: Performed By: #### CBCDIF, B MP ####[place] [address], [place] [phone]- [phone] DTYPE Auto Diff Normal 05-28-2017 [facility] (86427) Comment: Performed By: #### CBCDIF, B MP ####[place] [address], [place] [phone]- [phone] Eosinophils <0.03 <0.46 10*3/uL Normal 05-28-2017 [facility] (30008) Comment: Performed By: #### CBCDIF, B MP ####[facility] [phone]- [phone] Eosinophils/100 leukocytes 0.1 % Normal [facility] (93338) Comment: Performed By: #### CBCDIF, B MP ####[facility], [place] [phone]- [phone] Erythrocyte distribution 14.0 11.5-15.0 % Normal 05-[address] [facility] width Auto Ratio (RBC) [place] (59589) Comment: Performed By: #### CBCDIF, B MP ####[facility] [place], [place] [phone] Erythrocytes (RBC) 4.77 3.90-5.20 m/uL Normal 05-28-2017 [facility] (88179) Comment: Performed By: #### Reese CARTWRIGHT MP ####[place] [address], [place] [phone] Erythrocytes (RBC) 0.0 0 /100 WBC Normal 05-28-2017 [facility] (68401) Comment: Performed By: #### CBCSAM B MP ####[place] [address], [place] [phone] Erythrocytes (RBC) <0.01 <0.01 10*6/uL Normal 05-28-2017 [facility] (34477) Comment: Performed By: #### CBCReese VARGAS MP ####[place] [address], [place] [phone] Hematocrit (HCT) 42.3 36.0-46.0 % Normal 05-28-2017 [facility] (44157) Comment: Performed By: #### Reese CARTWRIGHT MP ####[place] [address], [place] [phone] Hemoglobin mass conc 13.5 11.5-15.5 g/dL Normal [address] [facility] ([facility] (65528) Comment: Performed By: #### CBCSAM B MP ####[place] [address], [place] [phone]- [phone] Lymphocytes 4.22 1.00-4.00 k/uL High 05-28-2017 [facility] (13836) Comment: Performed By: #### CBCSAM B MP ####[place] [address], [place] [phone]- [phone] Lymphocytes/100 leukocytes 27.7 % Normal [facility] (10436) Comment: Performed By: #### CBCSAM B MP ####[place] [address]Mont[place], [place] [phone]- [phone] MCH 28.3 26.0-34.0 pG Normal 05-28-2017 [facility] (15795) Comment: Performed By: #### CBCMARQUITAF B MP ####[facility] [place], [place] [phone]- [phone] MCHC mass conc (RBC) 31.9 30.5-36.0 g/dL Normal 7 [facility] (14529) Comment: Performed By: #### CBCMARQUITAF B MP ####[place] [address], [place] [phone]- [phone] MCV 88.7 80.0-100.0 fL Normal 05-28-2017 [facility] (34498) Comment: Performed By: #### CBCSAM B MP ####[place] [address], [place] [phone]- [phone] Monocytes/100 leukocytes 5.6 % Normal 05-28 [facility] (26038) Comment: Performed By: #### CBCSAM B MP ####[place] [address], [place] [phone]- [phone] Neutrophils/100 WBC Auto (Bld) 66.1 % Normal 05-28-2017 [facility] (70001) Comment: Performed By: #### CBCDIF B MP ####[place] [address], [place] [phone]- [phone] Platelet mean volume 9.8 9.0-12.7 fL Normal 7 [facility] (PMV) (37101) Comment: Performed By: #### CBCDIF, B MP ####[place] [address]ClevelMont[place], [place] [phone]- [phone] Platelets 537 150-400 k/uL High 05-28-2017 [facility] (77741) Comment: Performed By: #### Reese CARTWRIGHT MP ####[place] [address], [place] [phone]- [phone] WBC (Leukocytes) 15.24 3.70-11.00 k/uL High 05-28-2017 [facility] (76056) Comment: Performed By: #### GABBIE B MP ####[place] [address] [phone]- [phone] basic metabolic panl on 2017-05-28 Anion gap 14 9-18 mmol/L Normal 05-28-2017 [facility] (10975) Comment: Performed By: #### Reese CARTWRIGHT MP ####[place] [address] [place] [phone]- [phone] Calcium 9.1 8.5-10.2 mg/dL Normal 05-28-2017 [facility] (99408) Comment: Performed By: #### Reese CARTWRIGHT MP ####[place] [address] [place] [phone]- [phone] Chloride 104 97-105 mmol/L Normal 05-28-2017 [facility] (65757) Comment: Performed By: #### GABBIE B MP ####[place] [address], [place] [phone]- [phone] CO2 22 22-30 mmol/L Normal 05-28-2017 [facility] (10604) Comment: Performed By: #### GABBIE B MP ####[place] [address], [place] [phone]- [phone] Creatinine 0.64 0.58-0.96 mg/dL Normal 05-28-2017 [facility] (19954) Comment: Performed By: #### GABBIE B MP ####[place] [address], [place] [phone]- [phone] eGFR (non-black) >60 mL/min/{1.73_m2} Normal 2016 [facility] (06285) Comment: Performed By: #### Reese CARTWRIGHT MP ####[facility] [address] [place], [place] [phone]- [phone] Result Comment: eGFR (Estima gavin GFR) Units of measure: mL/min/1.73 meters squaredeGFR is derived from the reexpressed MDRD Study equation using the following parameters: serum creatinine, age, gender and race. The creatinine assay has been calibrated to be traceable to IDMS.An eGFR <60 mL/min/1.73m2 for >3 months is consistent with chronic kidney disease. Refer to KDOQI guidelines for clinical inte rpretation.In patients with unstable renal function, e.g. those with [place] kidney injury, the eGFR may not accurately reflect actual GFR. Glucose mass conc 109 74-99 mg/dL High 05-28-2017 C [facility] (69431) Comment: Result Comment: The [place] Diabetes Association (ADA) provides guidance for cutoff values for fastin g glucose and random glucose. The ADA defines fasting as no caloric intake for at least 8 hours. Fasting plasma glucose results between 100 to 125 m g/dL indicate increased risk for diabetes (prediabetes).Fasting plasma glucose results greater than or equal to 126 mg/dL meet the criteria for diagnosis of diabetes. In the absence of unequivocal hyperglycemia, r esults should be confirmed by repeat testing. In a patient with classic sympt oms of hyperglycemia or hyperglycemic crisis, random plasma glucose result s greater than or equal to 200 mg/dL meet the criteria for diagnosis of di abetes.Reference: Standards of Medical Care in Diabetes 2016, Canadian Diab etes Association. Diabetes Care. 2016.39(Suppl 1). Performed By: #### Reese CARTWRIGHT MP ####[facility] [address] [place], [place] [phone]- [phone] Potassium molar conc 3.6 3.7-5.1 mmol/L Low 7 [facility] ([id number]) Comment: Performed By: #### Reese CARTWRIGHT MP ####[facility] [address] [place], [place] [id number]- [phone] Sodium 140 136-144 mmol/L Normal 05-28-2017 [facility] ([id number]) Comment: Performed By: #### CBCDIF, B MP ####[facility] [address] [place], [place] [id number]- [phone] Urea nitrogen 14 7-21 mg/dL Normal 05-28-2017 [facility] ([id number]) Comment: Performed By: #### CBCDIF, B MP ####[facility] [address] [place], [place] [phone]- [phone] progress on 2017-04 PROGRESS HNO ID: [id number]: Richard Normal 05-17-2017 [place] MaritzaService: (none)Author Type: Clinic PhysicianType: Progress NotesFiled: [place] 05/17/2017 10:26 AMNote Text:Richard ([id number]) Maritza [facility] [address] [place] [address]Leic: [phone] Jifvjusg 2016CHIEF COMPLAINT: New Patient (left ulnar neuropathy, REF: Idania, discusssurgery)HPI: Ms. Karishma Pickard is a 32 year old female who presents with problemsin the left elbow and into the hand over the past 4 months or so. She isright-hand dominant. She became having some numbness and tingling and nowhis pain and at times can be 8 out of 10 numbness with a sharp and achydiscomfort at the elbow as well. Small digit, ring and middle fingersseem affected.ASSESSMENT:G56.22 Ulnar neuropathy at elbow of left upper extremity (primaryencounter diagnosis)PLAN:the risks, benefits, alternatives and potential complications werereviewed and she would like to pursue ulnar nerve decompression withpossible transposition. We'll get her scheduled accordingly.OBJECTIVE:Ms. Karishma Pcikard is a pleasant 32 year old in no apparent distress.Gen:There were no vitals taken for this visit. nl development, morbidlyobese, no deformitiesENT: Normocephalic, normal hearing, moist mucosaCV: Pulses:Radial= 2+ and symmetric, capillary refill < 2 secs, noperipheral edema/varicositiesSkin: no rash, bruising or lesions. Good turgor.Psych: cooperative and appropriate, alert and oriented x 3, good mood andaffect.Musculoskeletal:Cervical spine has supple range of motion and no tenderness to palpation,Spurling's sign negative. Shoulders and elbows have full range of motion. positive Tinel's over the cubital tunnel, subluxation of ulnar nerve atthe elbowis difficult to assess based on body habitus. negative Tinel'sover Guyon's canal. Inspection reveals no thenar atrophy. intactsensation to light touch in the radial 3 digits. Sensation diminished inthe ulnar 2 digits with out intrinsic atrophy/weakness. negative Tinel'sat the wrist, negative carpal tunnel compression testing on the left. Nolocking or catching of the digits. No tenderness to palpation or massesnoted in the forearm or hand.electrodiagnostics:Study InterpretationExtensive electrodiagnostic examination of the left upper extremity andadditional nerveconduction studies of the right upper limb reveal the followin. Small amplitudes of left ulnar sensory to digit 5 and dorsal ulnarcutaneous nerve withnormal ulnar motor responses. No motor axon loss changes in the left ulnarinnervatedmuscles. These findings are consistent with a left ulnar neuropathy,primarily affecting thesensory fibers, most likely localized at or proximal to the branch of thedorsal ulnar cutaneousnerve, moderate in degree electrically.2. The right ulnar sensory and motor responses are normal.3. There is no evidence of a left cervical motor radiculopathy or a leftmedian neuropathy at ordistal to the wrist (carpal tunnel syndrome).Supporting Subjective Information Below:Past Medical History:PAST MEDICAL HISTORYDiagnosis Date- Depression 01/27/2017- GERD (gastroesophageal reflux disease)- Morbid obesity (HCC)- Obstructive sleep apnea Not on CPAPPast Surgical History:PAST SURGICAL HISTORYProcedure Laterality Date- APPENDECTOMY 08/2010- PAST SURGICAL HISTORY OF tonsilsFamily History:FAMILY HISTORYProblem Relation Age of Onset- Multiple Sclerosis Mother- Stroke Father- Arthritis Paternal Grandfather- Cancer Paternal Grandfather skin- Emphysema Paternal Grandfather- Heart Paternal Grandmother- multiple sclerosis [OTHER] Maternal Aunt- Multiple Sclerosis Maternal GrandmotherSocial History:Social History Marital status: Single Spouse name: Years of education: 15 Number of children: 0Occupational HistoryOccupation Employer 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 1-2at night as neededergocalciferol, vitamin D2, (VITAMIN D) 50,000 unit capsule Take 1 capsuleby mouth once each week.famotidine (PEPCID) 40 mg tablet Take by mouth.buPROPion XL (WELLBUTRIN XL) 300 mg 24 hr tablet Take 300 mg by mouth oncedaily.buPROPion XL (WELLBUTRIN XL) 150 mg 24 hr tablet Take by mouth.sertraline (ZOLOFT) 100 mg tablet Take by mouth once daily. 2 tabletsonce per dayNo current facility-administered medications for this visit.Allergies: Cymbalta [Duloxetine]; Elavil [Amitriptyline Hcl]; GabapentinROS:General (negative for fatigue, malaise, weight loss/gain)HEENT (negative for headache, earache, recent vision changes, sinus pain,sore throat) Respiratory (no recent shortness of breath, hemoptysis)CV (negative for chest tightness, palpitations)Musculoskeletal (see HPI)Psych (no depression, anxiety)REFERRING PHYSICIAN: Ms. Karishma Pickard was referred to me forconsultation by the following physician. This consultation note will besent to the following physician by either mail or electronic medicalrecord.KONSTANTIN Ragsdale-[address] [facility] [address]Dwvgsa Nell Dial, DO195 [facility] [address]Tyuf note was partially generated using [employer] voice recognition system,and there may be some incorrect words, spellings, and punctuation thatwere not noted in checking the note before saving.Richard Salas MD PROGRESS HNO ID: [id number]: Carlie Miguel Angel 05-17-2017 [place] Cheryl RNService: (none)Author Clinic Type: (none)Type: Progress NotesFiled: Cedeño 05/17/2017 10:26 AMNote Text:AMB ROOMING ([id number]) INTAKE FLOWSHEET DATARisk ScreeningDo you have concerns about personal safety or safety in the home?: NoPainPain Score: 8/10Pain Location: Elbow-LeftDescription: Aching, Sharp, NumbnessDuration Amount of Time: 4Duration Units: MonthsFrequency: ContinuousPatient presents with:New Patient: left ulnar neuropathy, REF: Idania, discuss surgeryPt. is right hand dominant. She has been taking nothing for pain as Advildid not help. She presents with friend Renata. 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 She has been having sharp pain in elbow and numbness of digits3-5 of left arm. obsolete on 2017-04 OBSOLETE Procedure Normal 05-17-2017 [place] (ORMDNA) --------KARISHMA PICKARD Clini c ([id number]) 1985 F CHTD ate Time Provider Wizlhsghft00/20/17 RICHARD SALAS During your C leveland visit today, we recorded the following information about you:Allergies As of Date: 05/17/2017 Noted (0000 0) Allergy ReactionCYMBALTA (DU LOXETINE) 04/20/2017 14 - Other: See Comments Comments: Made her sluggishELAVIL (AMITRIPTYLIN E HCL) 04/20/2017 14 - Other: See Comments Comments: Made her sluggishGABAPENTIN 7 14 - Other: See Comments Comments: Made her sluggishDate Reviewed: 05/17/2017Reviewed by: Erica Crews RN - Fully AssessedReason for Visit: Schedule Surgery [1330]Primary Visit Diagnosi s:Ulnar neuropathy at elbow of left upper extremity [G56.22]Order(s):SURGICAL RE QUEST - ELECTIVE [1723120] Order #: [id number]: 1Prescriptions as of 05/17/2017 Sig: BUPROPION XL 300 MG 24 HR TAB Take 300 mg by mouth once jana* ONDANSETRON HCL 4 MG TABLET Take 4 mg by mouth ev magdalena 8 ho* HYDROXYZINE HCL 25 MG TABLET Take 25 mg by mouth as needed* TRAZODONE 50 MG TABLET Take 50 mg by mouth daily at * ERGOCALCIFEROL (VITAMIN D2) 5* Take 1 capsule by mouth once * BUPROPION XL 15 0 MG TAB Take by mouth. SERTRALINE 100 MG TABLET Take by mouth once daily. 2 * FAMOTIDINE 40 MG TABLET Take by mouth.Problem List As Of Date 05/17/2017 Noted Resolved Tonsillitis, chronic [J35.01 ] INVALID FOR* HILDA (obstructive sleep apnea) [G47.33] INVALID FOR* T/A hypertrophy [J35.3] INVALID FOR* Morbid obesity (HCC) [E66.01] INVALID FOR* Fibromyalgia [M79.7] INVALID FOR* Depression [F32 .9] INVALID FOR* Ulnar neuropathy at elbow of left upper extremi*INVALID FOR* More...Follow-up and Di sposition History RecordedEncounter Number: [id number] Status:Closed by CHUY ZIMMERMAN on 05/17/17 hosp on 2017-05-17 HOSP Patient:Valentina Pickard: Height:5' Nor mal 05-17-2017 [facility] 7(1.702 m)Weight:355 lb (161.027 (50023) kg)Outpatient Medications as of 06/02/17:ondansetron (ZOFRAN, HYDROCHLORIDE,) 4 mg tablethydrOXYzine HCl (ATARAX) 25 mg tablettraZODone (DESYREL) 50 mg tabletergocalciferol, vitamin D2, (VITAMIN D) 50,000 unit capsulefamotidine (PEPCID) 40 mg tabletAdmission/Clinic Administered Medications as of 06/02/17:lactated ringers infusionceFAZolin 3 g in sterile water 30 mL (ANC)Problem List:HILDA (obstructive sleep apnea) [G47.33]Morbid obesity (HCC) [E66.01]Fibromyalgia [M79.7]Depression [F32.9]Ulnar neuropathy at elbow of left upper extremity [G56.22]GERD (gastroesophageal reflux disease) [K21.9]Allergies:Cymbalta [Duloxetine]Elavil [Amitriptyline Hcl]GabapentinDate Verified: 06/02/17Lab ValuesLab Value Units Date High LowPOTA* 3.6 mmol/L 05/28/2017 5.1 3.7HEMA* 42.3 % 05/28/2017 46.0 36.0Progress Notes ([facility]):Naomie Ureña, RN, RN 06/01/2017 11:43 AM SignedPer Brook at [facility], patients wbc are at 15.24 from 05/28/17. Patient is not sickat this time. She is scheduled for ulnar nerve decompression on 06/02/17.Naomie Ureña, Sanjiv Aviles PA-C 06/01/2017 11:52 AM SignedShe has chronic leukocytosis, previous CBCs with elevated WBCs. She consultedhematology in the past. As long as she is asymptomatic we can proceed.Progress Notes ([facility]):Rocio Baldwin Ma 05/17/2017 10:52 AM SignedPlease schedule patient for Left ulnar nerve decompression, possibletransposition on 06/02/17. Patient request post op appointments in the morning.Chuy Quiros [facility] 05/17/2017 2:35 PM SignedSurgical request completed. Post ops made and mailed.Jessi Neves Ma 05/18/2017 2:05 PM SignedPatient scheduled as requested. cnov on 2017-05-17 CNOV Office Visit Normal 05-17-2017 [place] and (LAURA) --------KARISHMA PICKARD Clini c ([id number]) 1985 F CHTD ate Time Provider Bvascprkjg94/20/17 8:45 AM RICHARD SALAS During [place] your visit today, we recorde d the following information about you:Carlie Schofield RN 05/17/2017 ([id number]) 10:26 AM SignedAMB ROOMING Bee BECKER FLOWSHEET DATARisk ScreeningDo you have concerns about personal safety or safety in the home ?: NoPainPain Score: 8/10Pain Location: Elbow- LeftDescription: Aching, Sharp, NumbnessDuration Amou nt of Time: 4Duration Units: MonthsFrequency: ContinuousPatient presents with:New Patient: left ulnar neuropathy, REF: Idania, discuss surgeryPt. is right hand dominant. She has been taking nothing for pain as Advil didnot help. She presents with friend Renata. 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 She boyce s been having sharp pain in elbow and numbness of digits 3-5 of left arm.Richard Salas MD 05/17 10:26 AM SignedRichard Salas [facility]ITALepartment of PddiwuhpiejdMdewkzsesxzz[address] Milltown RdWooMiriam Hospital [address]Lugt: [phone] Okxqouol 7CHIEF COMPLAINT: New Patient (left ulnar neuropathy, REF: Idania discusssurgery)HPI: Ms. Huber Pickard is a 32 year old female who presents with problems inthe left elbow and into the hand over the past 4 months or so. She isright-hand dominant. She became having some numbness and tingling and no w hispain and at times can be 8 out of 10 numbness with a sharp and achy discomfortat the elbow as we ll. Small digit, ring and middle fingers seem affected.ASSESSMENT:G56.22 Ulnar neuropathy at elbow of left upper extremity (primary encounterdiagnosis)PLAN:the risks, benefits, alternatives and potential c omplications were reviewed andshe would like to pursue ulnar nerve decompression with possible transposition. We'll get her scheduled accordingly.OBJECTIVE:Ms. Karishma Pickard is a pleasant 32 ye ar old in no apparent distress.Gen:There were no vitals taken for this visit. nl development, morbi dly obese,no deformitiesENT: Normocephalic, normal hearing, moist mucosaCV: Pulses:Radial= 2+ and symmet kenroy, capillary refill ANDlt; 2 secs, noperipheral edema/varicositiesSkin: no rash, bruising or lesions . Good turgor.Psych: cooperative and appropriate, alert and oriented x 3, good mood andaffect.Musculos keletal:Cervical spine has supple range of motion and no tenderness to palpation,Spurling's sign ne gative. Shoulders and elbows have full range of motion.positive Tinel's over the cubital tunnel, sub luxation of ulnar nerve at theelbowis difficult to assess based on body habitus. negative Tinel's ov erGuyon's canal. Inspection reveals no thenar atrophy. intact sensation tolight touch in the radial 3 digits. Sensation diminished in the ulnar 2 digitswith out intrinsic atrophy/weakness. negative T inel's at the wrist, negativecarpal tunnel compression testing on the left. No locking or catching of th edigits. No tenderness to palpation or masses noted in the forearm or hand.electrodiagnostics:Stud y InterpretationExtensive electrodiagnostic examination of the left upper extremity andadditional nerv econduction studies of the right upper limb reveal the followin. Small amplitudes of left ulnar sen theodore to digit 5 and dorsal ulnar cutaneousnerve withnormal ulnar motor responses. No motor axon los s changes in the left ulnarinnervatedmuscles. These findings are consistent with a left ulnar neuropathy , primarilyaffecting thesensory fibers, most likely localized at or proximal to the branch of th edorsal ulnar cutaneousnerve, moderate in degree electrically.2. The right ulnar sensory and motor resp onses are normal.3. There is no evidence of a left cervical motor radiculopathy or a left medi anneuropathy at ordistal to the wrist (carpal tunnel syndrome).Supporting Subjective Information Below :Past Medical History:PAST MEDICAL HISTORYDiagnosis Date- Depression 01/27/2017- GERD (gastroesopha geal reflux disease)- Morbid obesity (HCC)- Obstructive sleep apnea Not on CPAPPast Surgical History:KONSTANTIN CONTRERAS SURGICAL HISTORYProcedure Laterality Date- APPENDECTOMY 08/2010- PAST SURGICAL HISTORY OF tonsilsF amily History:FAMILY HISTORYProblem Relation Age of Onset- Multiple Sclerosis Mother- Stroke Fat her- Arthritis Paternal Grandfather- Cancer Paternal Grandfather skin- Emphysema Paternal Grandfath er- Heart Paternal Grandmother- multiple sclerosis [OTHER] Maternal Aunt- Multiple Sclerosis Maternal GrandmotherSocial History:Social History Marital status: Single Spouse name: Years of education: 15 Number of children: 0Occupational 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 1-2 atnight as neededergocalciferol, vitamin D2, (VITAMIN D) 50,000 unit capsule Take 1 c apsule bymouth once each week.famotidine (PEPCID) 40 mg tablet Take by mouth.buPROPion XL (WELLBUTR IN XL) 300 mg 24 hr tablet Take 300 mg by mouth oncedaily.buPROPion XL (WELLBUTRIN XL) 150 mg 24 hr tablet Take by mouth.sertraline (ZOLOFT) 100 mg tablet Take by mouth once daily. 2 tablets once perday No current facility-administered medications for this visit.Allergies: Cymbalta [Duloxetine]; Elavi l [Amitriptyline Hcl]; GabapentinROS:General (negative for fatigue, malaise, weight loss/gain)HE ENT (negative for headache, earache, recent vision changes, sinus pain, sorethroat) Respiratory (no recent shortness of breath, hemoptysis)CV (negative for chest tightness, palpitations)Musculoskeletal (see HPI)Psych (no depression, anxiety)REFERRING PHYSICIAN: Ms. Karishma Pickard was referred to me for consultation bythe following physician. This consultation note will be sent to the followingencompass braintree rehabilitation hospitalsici an by either mail or electronic medical record.KONSTANTIN [place]ags[place]-C[address] [facility] [address] Carrie Dial, DO[address] [address]Ekkm note was partially generated using Dr [employer] voice recognition system, andthere may be some incorrect words, spellings, and punctuation t hat were notnoted in checking the note before saving.Richard Salas, DRAGANeferring Provider: IDANIA SUMMERS (KONSTANTIN) [[id number]]Allergies As of Date: 05/17/2017 Noted Allergy ReactionCYMBALTA (DULOXETINE ) 04/20/2017 14 - Other: See Comments Comments: Made her sluggishELAVIL (AMITRIPTYLINE HCL) 04/20/20 17 14 - Other: See Comments Comments: Made her sluggishGABAPENTIN 04/20/2017 14 - Other: See C omments Comments: Made her sluggishDate Reviewed: 05/17/2017Reviewed by: Carlie Schofield RN - Fully AssessedReason for Visit: New Patient [172] Cmt: left ulnar neuropathy, REF: ann Emerson surgeryPrimary Visit Diagnosis:Ulnar neuropathy at elbow of left upper extremity [G56.22]Prescripti ons as of 05/17/2017 Sig: ONDANSETRON HCL 4 MG TABLET Take 4 mg by mouth every 8 ho* HYDROXYZINE HCL 25 MG TABLET Take 25 mg by mouth as needed* TRAZODONE 50 MG TABLET Take 50 mg by mouth daily at * ERGOC ALCIFEROL (VITAMIN D2) 5* Take 1 capsule by mouth once * FAMOTIDINE 40 MG TABLET Take by mouth. BUPROP ION XL 300 MG 24 HR TAB Take 300 mg by mouth once jana* BUPROPION XL 150 MG TAB Take by mouth. SERTRALIN E 100 MG TABLET Take by mouth once daily. 2 *Medication notes this encounter BUPROPION XL 300 M G 24 HR TAB >> aCrlie Schofield RN 05/17/2017 8:46 AM >> CARLIE SCHOFIELD RN on May 17, 2017 8:46 AM No longer taking BUPROPION XL 150 MG TAB >> Carlie Schofield RN 05/17/2017 8:46 AM >> CARLIE SCHOFIELD RN WedMay 17, 2017 8:46 AM No longer taking SERTRALINE 100 MG TAB LET >> Carlie Schofield RN 05/17/2017 8:47 AM >> CARLIE SCHOFIELD RN WedMay 17, 2017 8:47 AM No longer takingProblem List As Of Date 05/17/2017 Noted Resolved Tonsillitis, chronic [J35.01 ] INVALID FOR* HILDA (obstructive sleep apnea) [G47.33] INVALID FOR* T/A hypertrophy [J35.3] INVALID FOR* Morbid obesity (HCC) [E66.01] INVALID FOR* Fibromyalgia [M79.7] INVALID FOR* Depression [F32 .9] INVALID FOR* Status:Closed by RICHARD SALAS MD on 05/17/17 cnpn on 2017-05-04 CNPN Telephone Normal 05-04-2017 [place] (NEMJessica) --------KARISHMA PICKARD ([id number]) 1985 F CHTD ate Time Provider Fmcrgmhgow29/7/17 LENA OCAMPO During your [place] visit today, we recorded the following information about you:Mitali Cardoza Econometrics Professor 05/04/2017 2:10 PM (0000 0) SignedPatient asking for a r eferral for a Examining Chair Assembler at the in [place]- VxkplLena Ocampo MD 05/04/2017 4:15 PM SignedI placed a consult order for her, but I am not familiar with specifichematologists in [facility]. Her PCP may be able to make a specific recommendationor she could be sent to scheduling to janice umana with the first available.Young Metz NeurologChristus Santa Rosa Hospital – [facility]cos for Multiple SclerosisJennifer Solano RN, RN 05/04/2017 4:25 PM SignedCalled left message on identified voice message of patient regarding belowAllergies As of Date: 05/04/2017 Noted Allergy ReactionCYMBALTA (DULOXETINE ) 04/20/2017 14 - Other: See Comments Comments: Made her sluggishELAVIL (AMITRIPTYLINE HCL) 04/20/20 17 14 - Other: See Comments Comments: Made her sluggishGABAPENTIN 04/20/2017 14 - Other: See C omments Comments: Made her sluggishDate Reviewed: 04/27/2017Reviewed by: Linda Santos Ma - Fully AssessedReason for Visit: Referral Request [124] Cmt: HematologistReason For Visit History RecordedPr imary Visit Diagnosis:Hemangioma [D18.00]Order(s):CONSULT TO HEMATOLOGY/ONCOLOGY [19990628] Order #: [id number]: 1Prescriptions as of 05/04/2017 Sig: BUPROPION XL 300 MG 24 HR TAB Take 300 mg by mouth once jana* ONDANSETRON HCL 4 MG TABLET Take 4 mg by mouth every 8 ho* HYDROXYZINE HCL 25 MG TA BLET Take 25 mg by mouth as needed* TRAZODONE 50 MG TABLET Take 50 mg by mouth daily at * ERGOCALCIFE ROL (VITAMIN D2) 5* Take 1 capsule by mouth once * BUPROPION XL 150 MG TAB Take by mouth. SERTRALINE 10 0 MG TABLET Take by mouth once daily. 2 * FAMOTIDINE 40 MG TABLET Take by mouth.Problem List As Of Kayode e 05/04/2017 Noted Resolved Tonsillitis, chronic [J35.01] INVALID FOR* HILDA (obstructive sleep apnea) [G 47.33] INVALID FOR* T/A hypertrophy [J35.3] INVALID FOR* Morbid obesity (HCC) [E66.01] INVALID FOR* Fibromyalgia [M79.7] INVALID FOR* Depression [F32.9] INVALID FOR* Status:Closed by LENA OCAMPO MD on 05/04/17 mri cervical spine wo/w ivcon on 2017-05-01 MRI CERVICAL * * *Final Report* * *DATE OF Normal 05-01-2017 [facility] SPINE WO/W IVCON EXAM: May 01 2017 10:59AM [facility] ([id number]) 7023 - MRI CERVICAL SPINE WO/W IVCON / REASON: G37.9-Demyelinating disease of central nervous system, unspecified * * * * Physician Interpretation * * * * EXAMINATION: MRI BRAIN WO/W IVCON, MRI CERVICAL SPINE WO/W IVCONHISTORY: Demyelinating disease of central nervous system, unspecified. Stabbing pain between the shoulders.COMPARISON: MRI brain and cervical spine from 01/16/2014.TECHNIQUE: Demyelination protocol MR brain with diffusion weighted scans and postcontrast T1-weighted scans. No MRA.Routine cervical spine MRI without and with intravenous contrast.MR Contrast: DotaremMR Contrast Volume (ml): 20MR Contrast Route of Administration: IVRESULT:Images are compromised by motion artifact on several sequences.MRI BRAIN:Acute Change: There is no evidence of restricted diffusion to suggest an acute infarct.Hemorrhage: No evidence of prior parenchymal hemorrhage on the gradient echo images.Mass Effect / Mass Lesion: No evidence of an intracranial mass or extra-axial fluid collection. No significant mass effect. No abnormal enhancement.White matter: The white matter is within normal limits of signal intensity for age, within the constraints of patient motion.Parenchyma: No significant volume loss for age.Ventricles: Normal caliber and morphology.Skull Base: Partial empty sella noted. Craniocervical junction is normal. No significant marrow replacement process.Vasculature: Major intracranial arterial structures, and dural venous sinuses show typical flow void, suggesting patency by spin echo criteria.Other: Localized mucosal thickening versus retention cyst or polyp in the right maxillary sinus The visualized paranasal sinuses and mastoid air cells are otherwise clear. The orbits and extracranial soft tissues are unremarkable.MR CERVICAL:Counting reference: Craniocervical junction.Alignment: Alignment is anatomic.Craniocervical junction: Craniocervical junction is normal.Bone marrow / fracture: There is no evidence of pathologic marrow infiltration. Stable T1 hyperintense lesion with T2 hyperintensity and suppression on STIR, and postcontrast enhancement in the C7 body, presumably an intraosseous hemangioma. No evidence of acute or chronic fracture.Cord: The cervical spinal cord demonstrates normal signal and caliber, noting that the axial sequences are compromised by patient motion.Cervical soft tissues: The paraspinal soft tissues planes are maintained.C2-C3: Canal and foramina are patent.C3-C4: Canal and foramina are patent.C4-C5: Canal and foramina are patent.C5-C6: Canal and foramina are patent.C6-C7: Canal and foramina are patent.C7-T1: Canal and foramina are patent.IMPRESSION:Motion compromised examination.Grossly unremarkable MRI of the brain and cervical spine.Flight Software Test Engineer: NICHOLAS Transcribe Date/Time: May 01 2017 11:04ADictated by : ALEJANDRO HERNANDEZ MDThijulia examination was interpreted and the report reviewed and electronically signed by: ALEJANDRO HERNANDEZ MD on May 01 2017 11:10AM [id number] mri brain wo/w ivcon on 2017-05-01 MRI BRAIN WO/W * * *Final Report* * *DATE OF Noelle l 05-01-2017 [facility] IVCON EXAM: May 01 2017 10:59AM [facility] 0295 ([id number]) - MRI BRAIN WO/W IVCON / REASON: G37.9-Demyelinating disease of central nervous system, unspecified * * * * Physician Interpretation * * * * EXAMINATION: MRI BRAIN WO/W IVCON, MRI CERVICAL SPINE WO/W IVCONHISTORY: Demyelinating disease of central nervous system, unspecified. Stabbing pain between the shoulders.COMPARISON: MRI brain and cervical spine from 01/16/2014.TECHNIQUE: Demyelination protocol MR brain with diffusion weighted scans and postcontrast T1-weighted scans. No MRA.Routine cervical spine MRI without and with intravenous contrast.MR Contrast: DotaremMR Contrast Volume (ml): 20MR Contrast Route of Administration: IVRESULT:Images are compromised by motion artifact on several sequences.MRI BRAIN:Acute Change: There is no evidence of restricted diffusion to suggest an acute infarct.Hemorrhage: No evidence of prior parenchymal hemorrhage on the gradient echo images.Mass Effect / Mass Lesion: No evidence of an intracranial mass or extra-axial fluid collection. No significant mass effect. No abnormal enhancement.White matter: The white matter is within normal limits of signal intensity for age, within the constraints of patient motion.Parenchyma: No significant volume loss for age.Ventricles: Normal caliber and morphology.Skull Base: Partial empty sella noted. Craniocervical junction is normal. No significant marrow replacement process.Vasculature: Major intracranial arterial structures, and dural venous sinuses show typical flow void, suggesting patency by spin echo criteria.Other: Localized mucosal thickening versus retention cyst or polyp in the right maxillary sinus The visualized paranasal sinuses and mastoid air cells are otherwise clear. The orbits and extracranial soft tissues are unremarkable.MR CERVICAL:Counting reference: Craniocervical junction.Alignment: Alignment is anatomic.Craniocervical junction: Craniocervical junction is normal.Bone marrow / fracture: There is no evidence of pathologic marrow infiltration. Stable T1 hyperintense lesion with T2 hyperintensity and suppression on STIR, and postcontrast enhancement in the C7 body, presumably an intraosseous hemangioma. No evidence of acute or chronic fracture.Cord: The cervical spinal cord demonstrates normal signal and caliber, noting that the axial sequences are compromised by patient motion.Cervical soft tissues: The paraspinal soft tissues planes are maintained.C2-C3: Canal and foramina are patent.C3-C4: Canal and foramina are patent.C4-C5: Canal and foramina are patent.C5-C6: Canal and foramina are patent.C6-C7: Canal and foramina are patent.C7-T1: Canal and foramina are patent.IMPRESSION:Motion compromised examination.Grossly unremarkable MRI of the brain and cervical spine.[employer] Software Test Engineer: NICHOLAS Transcribe Date/Time: May 01 2017 11:04ADictated by : ALEJANDRO HERNANDEZ MDThis examination was interpreted and the report reviewed and electronically signed by: ALEJANDRO HERNANDEZ MD on May 01 2017 11:10AM [id number] xr elbow 3v ap/lat/other lt on 2017-04-27 XR ELBOW 3V * * *Final Report* * *DATE OF EXAM: Mar04-27-2017 [place] AP/LAT/OTHER 2016 10:39AM BETHANIE 5324 - XR ELBOW 3V [facility] LT AP/LAT/OTHER LT / [id number] REASON: [id number], unspecified * * * * Physician Interpretation * * * * HISTORY: Pain, unspecifiedTECHNIQUE: 3 views left elbowCOMPARISON: None.RESULT:There is no acute fracture.Normal alignment and joint spaces left elbow. There is no joint effusion. No focal soft tissue swelling.IMPRESSION:NORMALTranscriptionis t: [facility] Transcribe Date/Time: Apr 27 2017 12:21PDictated by : JACK MERCEDES MDThijulia examination was interpreted and the report reviewed and electronically signed by: JACK EMRCEDES MD on Apr 27 2017 12:21PM [id number] progress on 2017-03 PROGRESS HNO ID: [id number]: Idania Arguello) No rmal 04-27-2017 [place] JennaService: (none)Author Type: Clinic Physician AssistantType: Progress [place] NotesFiled: 04/28/2017 11:43 AMNote ([id number]) Text:KONSTANTIN [place]-epartment of ZoscnzakkxlxVbjv[address] [address]Bndf: [phone] 31, 2017CHIEF COMPLAINT: Left elbow painHPI: Ms. Karishma Pickard is a 32 year old female. She presents withincreasing numbness in her left hand and elbow for the past severalmonths. She notes that moving her elbow a certain way causes pain toshoot down her forearm into her middle, ring and pinky fingers. Pain todayis 6/10 electric shocks. 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 Denies any mechanical symptoms. Noleft arm injuries. Patient is right hand dominant. Patient had EMG byanther provider and presents to discuss results.ASSESSMENT:G56.22 Ulnar neuropathy at elbow of left upper extremity (primaryencounter diagnosis)M79.642 Pain of left handR20.0 Numbness of fingersPLAN: Her EMG showed left ulnar neuropathy without evidence of medianneuropathy at the wrist or cervical radiculopathy. She is interested insurgical intervention. We will have her return to see Dr. Salas todiscuss surgery.FOLLOW UP INSTRUCTIONS:Follow up with Dr. Salas to discuss surgical intervention.Ms. Karishma Pickard was advised as to contrast therapies and/or to takeanalgesics/anti-inflammatories as needed and all contraindications werereviewed.OBJECTIVE:Ms. Karishma Pickard is a pleasant 32 year old in no apparent distress.Gen:There were no vitals taken for this visit. nl development, obese, nodeformitiesENT: Normocephalic, normal hearing, moist mucosaCV: Pulses:Radial= 2+ and symmetric, capillary refill < 2 secs, noperipheral edema/varicositiesSkin: no rash, bruising or lesions. Good turgor.Psych: cooperative and appropriate, alert and oriented x 3, good mood andaffect.Musculoskeletal: Left upper extremityCervical spine has supple range of motion without tenderness to palpation,Spurling's sign negative. Shoulders and elbows have full active range ofmotion. Positive Tinel's over the cubital tunnel on left, no subluxationof ulnar nerve at the elbow with flexion. Negitive Tinel's over Guyon'scanal. Inspection reveals no thenar atrophy. Intact sensation to lighttouch in the radial 3 digits. Sensation decreased in the ulnar 2 digitswith positive intrinsic atrophy/weakness. Negitive Tinel's at the wrist,negitive carpal tunnel compression testing on the left. No locking orcatching of the digits. No tenderness to palpation or masses noted in theforearm or hand.IMAGING:EMG 04/06/17 reviewedPositive left ulnar neuropathy without evidence of median neuropathy atthe wrist or cervical radiculopathy.Supporting Subjective Information Below:Past Medical History:PAST MEDICAL HISTORYDiagnosis Date- Depression 01/27/2017- GERD (gastroesophageal reflux disease)- Morbid obesity (HCC)- Obstructive sleep apnea Not on CPAPPast Surgical History:PAST SURGICAL HISTORYProcedure Laterality Date- APPENDECTOMY 08/2010- PAST SURGICAL HISTORY OF tonsilsFamily History:FAMILY HISTORYProblem Relation Age of Onset- Multiple Sclerosis Mother- Stroke Father- Arthritis Paternal Grandfather- Cancer Paternal Grandfather skin- Emphysema Paternal Grandfather- Heart Paternal Grandmother- multiple sclerosis [OTHER] Maternal Aunt- Multiple Sclerosis Maternal GrandmotherSocial History:Social History Marital status: Single Spouse name: Years of education: 15 Number of children: 0Occupational HistoryOccupation Employer 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*Social History Main Topics Smoking status: Current Every Day Smoker Packs/day: 0.80 Years: 3.00 Types: Cigarettes Smokeless status: Never Used Alcohol use: Yes Comment: very rarely Drug use: No Sexual activity: YesMedications:Current Outpatient Prescriptions:buPROPion XL (WELLBUTRIN XL) 300 mg 24 hr tablet Take 300 mg by mouth oncedaily.ondansetron (ZOFRAN, HYDROCHLORIDE,) 4 mg tablet Take 4 mg by mouthevery 8 hours as needed.hydrOXYzine HCl (ATARAX) 25 mg tablet Take 25 mg by mouth as needed (Cantake 1-4 per day as needed).traZODone (DESYREL) 50 mg tablet Take 50 mg by mouth daily at bedtime. 1-2at night as neededergocalciferol, vitamin D2, (VITAMIN D) 50,000 unit capsule Take 1 capsuleby mouth once each week.buPROPion XL (WELLBUTRIN XL) 150 mg 24 hr tablet Take by mouth.sertraline (ZOLOFT) 100 mg tablet Take by mouth once daily. 2 tabletsonce per dayfamotidine (PEPCID) 40 mg tablet Take by mouth.No current facility-administered medications for this visit.Allergies: Cymbalta [Duloxetine]; Elavil [Amitriptyline Hcl]; GabapentinROS:General (negative for fatigue, malaise, weight loss/gain)HEENT (negative for headache, earache, recent vision changes, sinus pain,sore throat) Respiratory (no recent shortness of breath, hemoptysis)CV (negative for chest tightness, palpitations)Musculoskeletal (see HPI)Psych (no depression, anxiety)This note was partially generated using [employer] voice recognition system,and there may be some incorrect words, spellings, and punctuation thatwere not noted in checking the note before saving.JUAN JOSE [place] HNO ID: [id number]: Madhavi (Ct) Jose al 04-27-2017 Br[place] CTService: (none)Author Type: Hospital Clinical TechnicianType: Progress ([id number]) NotesFiled: 04/27/2017 11:24 AMNote Text:NAME:Karishma Frank: April 27, 2017[facility] [id number] Extremity X-Ray(s): Elbow, Left COMPLETEDTECH ID SIGN: GONZALO britt on 2017-04-27 CNOV Office Visit Normal 04-27-2017 [place] and (ORMDNA) --------KARISHMA PICKARD dominick ([id number]) 1985 F CHTD ate Time Provider Joxvxjchte04/31/17 11:00 AM IDANIA AVILES (PA) During your visit today, we recorded the following information about you:Linda Sanots Toby 04/27/2017 ([id number]) 10:56 AM SignedPatient prese nts with:Left elbow painIdania Aviles PA-C 04/28/2017 11:43 AM FROY Tate [facility] IermowoavqmfKluehoqjfs[address] [address]Gpmz: [phone] er 2016CHIEF COMPLAINT: Left elbow painHPI: Ms. Karishma Pickard is a 32 year old female. She present s with increasingnumbness in her left hand and elbow for the past several months. She notesthat moving her elbow a certain way causes pain to shoot down her forearm intoher middle, ring and pinky finge rs. Pain today is 6/10 electric shocks. Patientis a student and does a lot of typing, notes that typing makes symptoms worse.Denies any mechanical symptoms. No left arm injuries. Patient is right handdominan t. [facility] and presents to discuss results.ASSESSMENT:G56.22 Ul melvi neuropathy at elbow of left upper extremity (primary encounterdiagnosis)M79.642 P ain of left handR20.0 Numbness of fingersPLAN: Her EMG showed left ulnar neuropathy without evidence of medianneuropathy at the wrist or cervical radiculopathy. She is interested insurgical interv ention. We will have her return to see Dr. Salas to discusssurgery.FOLLOW UP INSTRUCTIONS:Follow up wi Dr. Salas to discuss surgical intervention.Ms. Karishma Pickard was advised as to contrast thera pies and/or to takeanalgesics/anti-inflammatories as needed and all contraindications werereview ed.OBJECTIVE:Ms. Karishma Pickard is a pleasant 32 year old in no apparent distress.Gen:There were no v itals taken for this visit. nl development, obese, nodeformitiesENT: Normocephalic, normal hearin g, moist mucosaCV: Pulses:Radial= 2+ and symmetric, capillary refill ANDlt; 2 secs, noperipheral edema/v aricositiesSkin: no rash, bruising or lesions. Good turgor.Psych: cooperative and appropriate, alert and oriented x 3, good mood andaffect.Musculoskeletal: Left upper extremityCervical spine has supple range of motion without tenderness to palpation,Spurling's sign negative. Shoulders and elbo ws have full active range ofmotion. Positive Tinel's over the cubital tunnel on left, no subluxati on ofulnar nerve at the elbow with flexion. Negitive Tinel's over Guyon's canal.Inspection reveals no thenar atrophy. Intact sensation to light touch in theradial 3 digits. Sensation decreased in the u lnar 2 digits with positiveintrinsic atrophy/weakness. Negitive Tinel's at the wrist, negitive carpaltu nnel compression testing on the left. No locking or catching of the digits. 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 Surgical History:PAST SURGICAL HISTORYProcedure Laterality Date- APPENDECTOM Y 08/2010- PAST SURGICAL HISTORY OF tonsilsFamily History:FAMILY HISTORYProblem Relation Age of Onset- Multiple Sclerosis Mother- Stroke Father- Arthritis Paternal Grandfather- Cancer Paternal Grandfather skin- Emphysema Paternal Grandfather- Heart Paternal Grandmother- multiple sclero sis [OTHER] Maternal Aunt- Multiple Sclerosis Maternal GrandmotherSocial History:Social History Azul moulton status: Single Spouse name: Years of education: 15 Number of children: 0Occupational HistoryOccupat ion Employer 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*Social History Main Topics Smoking status: Current Every Day Sm oker Packs/day: 0.80 Years: 3.00 Types: Cigarettes Smokeless status: Never Used Alcohol use: Yes Commen t: very rarely Drug use: No Sexual activity: YesMedications:Current Outpatient Prescriptions:buP ROPion XL (WELLBUTRIN XL) 300 mg 24 hr tablet Take 300 mg by mouth oncedaily.ondansetron (ZOFRA N, HYDROCHLORIDE,) 4 mg tablet Take 4 mg by mouth every 8hours as needed.hydrOXYzine HCl (ATAR AX) 25 mg tablet Take 25 mg by mouth as needed (Can take1-4 per day as needed).traZODone (DESYREL) 50 mg tablet Take 50 mg by mouth daily at bedtime. 1-2 atnight as neededergocalciferol, vitami n D2, (VITAMIN D) 50,000 unit capsule Take 1 capsule bymouth once each week.buPROPion XL (WELLBUTRI N XL) 150 mg 24 hr tablet Take by mouth.sertraline (ZOLOFT) 100 mg tablet Take by mouth once daily. 2 tablets once perdayfamotidine (PEPCID) 40 mg tablet Take by mouth.No current facility-administere d medications for this visit.Allergies: Cymbalta [Duloxetine]; Elavil [Amitriptyline Hcl]; Gabapen tinROS:General (negative for fatigue, malaise, weight loss/gain)HEENT (negative for headache, eara tyron, recent vision changes, sinus pain, sorethroat) Respiratory (no recent shortness of breath, hemopty sis)CV (negative for chest tightness, palpitations)Musculoskeletal (see HPI)Psych (no depression, an xiety)This note was partially generated using [employer] voice recognition system, andthere may be some incorrect words, spellings, and punctuation that were notnoted in checking the note before saving.KONSTANTIN Clay-CReferring Provider: SELF [200]Allergies As of Date: 04/27/2017 Noted Allergy Niyah ctionCYMBALTA (DULOXETINE) 04/20/2017 14 - Other: See Comments Comments: Made her sluggishELAVIL (AMI TRIPTYLINE HCL) 04/20/2017 14 - Other: See Comments Comments: Made her sluggishGABAPENTIN 7 14 - Other: See Comments Comments: Made her sluggishDate Reviewed: 04/27/2017Reviewed by: Marina Santos Ma - Fully AssessedReason for Visit: Left elbow pain [Other]Primary Visit Diagnos is:Ulnar neuropathy at elbow of left upper extremity [G56.22] Other Visit Diagnoses:Pain of left hand [M79.642] Numbness of fingers [R20.0]Prescriptions as of 04/27/2017 Sig: BUPROPION XL 300 MG 24 HR TA B Take 300 mg by mouth once jana* ONDANSETRON HCL 4 MG TABLET Take 4 mg by mouth every 8 ho* HYDROXYZIN E HCL 25 MG TABLET Take 25 mg by mouth as needed* TRAZODONE 50 MG TABLET Take 50 mg by mouth daily at * ERGOCALCIFEROL (VITAMIN D2) 5* Take 1 capsule by mouth once * BUPROPION XL 150 MG TAB Take by mouth. SERTRALINE 100 MG TABLET Take by mouth once daily. 2 * FAMOTIDINE 40 MG TABLET Take by mouth.Problem List As Of Date 04/27/2017 Noted Resolved Tonsillitis, chronic [J35.01] INVALID FOR* HILDA (obstructiv e sleep apnea) [G47.33] INVALID FOR* T/A hypertrophy [J35.3] INVALID FOR* Morbid obesity (HCC) [E66.01 ] INVALID FOR* Fibromyalgia [M79.7] INVALID FOR* Depression [F32.9] INVALID FOR*Visit Notes:>> Linda Mendez Apr 27, 2017 10:56 AM Status: SignedPatient presents with:Left elbow painEncounte r Number: [id number] Status:Closed by IDANIA AVILES PA-C on 04/28/17 vitamin d 25 hydroxy on 2017-04-20 Vitamin D 25 Hydroxy 22.7 31.0-80.0 ng/mL Low 7 [facility] ([id number]) Comment: Result Comment: Classificati on of 25 [place] Vitamin D status:Insufficiency/Moderat e Deficiency: < or = 30 ng/mLSufficiency/Optimal Levels: 31 to 80 ng/mLToxici ty: > 100 ng/mLTest performed by chemiluminescent immunoassay . Performed By: #### TSH, B12, SERFOL, SYPHGX, LYMEGM, VITD ####[facility], [place] [phone] vitamin b12 on 2016 Cobalamins (Vitamin B12) 376 211-946 pg/mL Normal 04-20 [facility] ([id number]) Comment: Performed By: #### TSH, B12, SERFOL, SYPHGX, LYMEGM, VITD ####[facility] [address], [place] [phone] tsh on 2017-04-20 Thyroid stimulating 1.420 0.400-5.500 uU/mL Normal 04-20-20 17 [facility] hormone (TSH) ([id number] ) Comment: Result Comment: If the patie nt is , TSH reference range varies by gestational period:First Tri mester 0.100-2.500 uU/mLSecond Trimester 0.200-3.000 uU/mLThird Trime ster 0.300-3.000 uU/mLReferences: 1. Zambrano L, Conrad M, Brent EK, e t al. Management of Thyroid Dysfunction during and : An Endocrine Society Clinical Practice Guideline. J Clin Endocrinol Metab, 201 2:97:0924-6651. 2. Cristóbal JURADO. Overview of thyroid disease in . UpToDa te. 2016. Accessed on December 13, 2015. Performed By: #### TSH, B12, SERFOL, SYPHGX, LYMEGM, VITD ####[facility] [address] [place], [place] [phone] syphilis igg with conf on 2017-04-20 Syphilis IgG <0.2 Normal 04-20-2017 [facility] ([id number]) Comment: Result Comment: Antibody ind ex is interpreted as follows:Non reactive SPECIMENS <=0.8Weak reactive SPECIMENS 0.9 to 5.9Reactive SPECIMENS >=6.0 Performed By: #### TSH, B12, SERFOL, SYPHGX, LYMEGM, VITD ####[facility] [address] [place], [place] [phone] Syphilis IgG, Qual Nonreactive Nonreactive Normal 017 [facility] ([id number]) Comment: Result Comment: In conjuncti on with this result, the immune status of the patient should be evaluated based on their clinical status, related risk factors, and other diagnosti c test results. Performed By: #### TSH, B12, SERFOL, SYPHGX, LYMEGM, VITD ####[facility] [address] [place], [place] [phone] progress on 2017-03 PROGRESS HNO ID: [id number]: Lena Lacey Normal 04-20-2017 [place] ConwayService: (none)Author Type: Clinic PhysicianType: Progress NotesFiled: [place] 04/20/2017 9:08 AMNote Text:[facility] ([id number]) [place] NEW EVALUATIONReferral source:Pari Avila[address] [place], [place] [address]DSIEPTRZQ NEUROLOGIC DIAGNOSIS: Workup in progress, MS possible givenstrong family historyDISEASE HISTORYOnset: 2010Diagnosis of MS: NADisease course at onset: progressiveCurrent disease course: progressivePrior disease therapy: noneCurrent disease therapy: none. Date started: NALast MRI brain: 16 JAN 2014Last MRI cervical spine: 16 JAN 2014HISTORY OF ILLNESS:Consultation on/Evaluation of this 32 year old right-handed woman wasrequested regarding the possibility of MS. The patient was accompanied byher girlfriend, Renata. Previous records (physician notes, laboratoryreports, and radiology reports) and imaging studies were reviewed andsummarized. My findings and recommendations will be communicated back tothe patient's physician(s) either via the shared medical record or mail.Follow-up is expected to be with me at the [facility].Ms. Pickard has a strong family history of MS with her maternalgrandmother, maternal aunt, and mother all having MS.Ms. Pickard notes that she had good health up until 2009. [facility] and her arms were causing her great pain. From thattime forward, the pain has continued to be a significant issue. Itprimarily affects her arms and her legs. It's largely a repetitive issue,where if she makes repetitive movements with her arms or legs it getsworse. She describes it as a deep pain, as if somebody is crushing herbones or like they're being twisted. She went to a vocational rehabilitation technician whodiagnosed her with fibromyalgia. She notes that she had trigger pointinjections, lidocaine, and a number of other medications. She also saw aneurologist around that time who did MRIs and said everything looked fine.This was in 2013.Starting around September 2016, she has had trouble remembering things andstaying focused. For instance, she forgets appointments, she has forgottento take her medication. People will tell her things and then they willhave to tell her again because she doesn't remember it. She notes thatsometimes she has trouble focusing her eye sight as well.She has also noted spasms as an issue.PAST HISTORY:PAST MEDICAL HISTORYDiagnosis Date- Depression 01/27/2017- GERD (gastroesophageal reflux disease)- Morbid obesity (HCC)- Obstructive sleep apnea Not on CPAPPAST SURGICAL HISTORYProcedure Laterality Date- APPENDECTOMY 08/2010- PAST SURGICAL HISTORY OF tonsilsTransfusions: NoneCurrent Outpatient Prescriptions:buPROPion XL (WELLBUTRIN XL) 300 mg 24 hr tablet Take 300 mg by mouth oncedaily.ondansetron (ZOFRAN, HYDROCHLORIDE,) 4 mg tablet Take 4 mg by mouthevery 8 hours as needed.hydrOXYzine HCl (ATARAX) 25 mg tablet Take 25 mg by mouth as needed (Cantake 1-4 per day as needed).traZODone (DESYREL) 50 mg tablet Take 50 mg by mouth daily at bedtime. 1-2at night as neededbuPROPion XL (WELLBUTRIN XL) 150 mg 24 hr tablet Take by mouth.sertraline (ZOLOFT) 100 mg tablet Take by mouth once daily. 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*Social History Main Topics Smoking status: Current Every Day Smoker Packs/day: 0.80 Years: 3.00 Types: Cigarettes Smokeless status: Never Used Alcohol use: Yes Comment: very rarely Drug use: No Sexual activity: YesFAMILY HISTORYProblem Relation Age of Onset- Multiple Sclerosis Mother- Stroke Father- Arthritis Paternal Grandfather- Cancer Paternal Grandfather skin- Emphysema Paternal Grandfather- Heart Paternal Grandmother- multiple sclerosis [OTHER] Maternal Aunt- Multiple Sclerosis Maternal GrandmotherREVIEW OF SYSTEMS:Comprehensive review of systems otherwise was negative, includingconstitutional, head and neck, cardiovascular, pulmonary,gastrointestinal, endocrine, urologic, reproductive, rheumatic,hematologic, immunologic, dermatologic, and psychiatric.Nutritional concerns: NoneDriving issues: NoneConcerns regarding living situation and safety at home: NoneRisk of falls: NonePain: Diffuse, see abovePHYSICAL EXAM: 742BP: 134/104BP Site: Left ArmBP Position: SittingBP Cuff Size: Large AdultPulse: 116Resp: 18Temp: 36.8 ?C (98.2 ?F)SpO2: 93%Weight: (!) 162.1 kg (357 lb 4.8 oz)Height: 170.2 cm (5' 7)Hair, skin, nails, and joints were normal. Neck was supple withoutLhermitte's phenomenon. There was no percussion tenderness over thespine. Carotids were 2+ without bruits. Thyroid was normal.The patient was alert and oriented to person, place, and time with normallanguage, attention and concentration, recent and remote memory, praxis,and intellectual function. Affect was normal. The patient did not appeardepressed.Visual acuity to near card was as follows: OD= 20/30 (with glasses) OS=20/40 (with glasses).Visual lechuga were full to confrontation.Pupils were 6 mm and briskly reactive OU without a relative afferentpupillary defect.Funduscopic examination was normal without disc edema, erythema, oratrophy.Ocular ductions were full without nystagmus or ataxia.Facial sensation was normal. Muscles of mastication and facial expressionmoved normally. Hearing was normal. Gag reflex and palatal movements werenormal. Sternocleidomastoid and trapezius power were normal. Tonguemovements were normal.There was no dysarthria.Motor Examination:There was no pronator drift. No fasciculations.Right Upper Extremity: (of 5) Left Upper Extremity: (of 5)Deltoid 5 Deltoid 5Biceps 5 Biceps 5Triceps 5 Triceps 5Finger extensors 5 Finger extensors 5Finger flexors 5 Finger flexors 5Dorsal interossei 5 Dorsal interossei 5Abductor pollicis 5 Abductor pollicis 5Tone (Mitzi scale) 0 Tone (Mitzi scale) 0Right Lower Extremity: (of 5) Left Lower Extremity: (of 5)Hip flexors 5 Hip flexors 5Hip extensors 5 Hip extensors 5Knee flexors 5 Knee flexors 5Knee extensors 5 Knee extensors 5Dorsiflexors 5 Dorsiflexors 5Plantarflexors 5 Plantarflexors 5Tone (Mitzi scale) 0 Tone (Mitzi scale) 0Modified Mitzi Score Velez:0 - no increase in tone1 - Slight increase in tone (catch and release at end of ROM)1+ Slight increase in tone, manifested by a catch followed by minresistance throughout remainder (less than 1/2 ROM)2 - marked increase in tone through most of ROM, but affected part easilymoved3 - considerable increase in tone; passive movement difficult4 - Affected part rigidReflexes:brachioradialis + Brachioradialis +Biceps + Biceps +Triceps + Triceps +Patellar ++ Patellar +ankle jerk + ankle jerk +plantar response down plantar response downCoordination in the arms and legs was intact including cvipt-rz-fieea,rapid-alternating, and fine movements.Sensory examination:Pinprick: Reduced in the left lower extremity.Vibration: Normal bilateral lower extremities.Proprioception: Normal bilateral lower extremities.Standard gait was normal. Heel and toe walking were normal. There wasmoderate imbalance with tandem walking.Timed 25-foot walk (sec): 7.6 Assistive device: None.REVIEW OF IMAGING STUDIES:I reviewed the following studies:16 January 2014: MRI Brain/ Cervical spine with and without contrast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
--- OUTSIDE RECORDS SUMMARY | 2020-04-09 16:19 | XMS RPT_ITS | CCD ---
:1985 External Reference #:[id number] Author Organization [facility] Care Team Providers Name Role Phone Pavelko Unavailable Unavailable PROVIDER Unavailable Unavailable Pavelko Unavailable Unavailable BRIANNA, M Unavailable Unavailable PROVIDER Unavailable Unavailable Pavelko Unavailable Unavailable BRIANNA, M Unavailable Unavailable PROVIDER Unavailable Unavailable Pavelko Unavailable Unavailable GARCIA, (RAILROAD SWITCHMAN) Unavailable Unavailable KIRIT Unavailable Unavailable OCAMPO, S [...] 04-20-2017 - [facility] Translations: [ [facility] AMITRIPTYLINE HCL, Repositor y AMITRIPTYLINE HCL] Amitriptyline AOF Religious Irma onal Translations: [ Elavil] [facility] [place] [facility] Repository Amitriptyline 02-11-2015 - [facility] CTHA (29663) DULoxetine Other (See Comments) 04-20-2017 [facility] Translations: [ Main [place] DULOXETINE, DULOXETINE] Repo sitory DULoxetine AOF Unknown [facility] Hammond nal Translations: [ Health Syste m Trenaalta] Repository DULoxetine 02-11-2015 - [facility]- [place] (34513) gabapentin Other (See Comments) Unknown 02-11-2015 [facility] Translations: [ Main [place] GABAPENTIN, GABAPENTIN, Repo sitory gabapentin] NO KNOWN ALLERGIES [facility] Translations: [ NO [place] KNOWN ALLERGIES, NO Reposito ry KNOWN ALLERGIES] Medications Medication Name Sig Date Prescriber Location Baclofen baclofen (LIORESAL) 10 Historical Solx- MG tablet Take 10 mg by Provider HA LONG (06643) mouth 2 times daily 0 Historical Active Provider Blood Glucose Blood Glucose 05-02-2018 [facility] [place] [facility] alth- Monitoring Suppl Monitoring Suppl HA LONG (66767) (FREESTYLE FREEDOM (FREESTYLE FREEDOM LITE) w/Device KIT LITE) w/Device KIT Indications: Abnormal glucose 1 kit by Does not apply route daily 1 kit 0 05/02/2018 Active busPIRone busPIRone (BUSPAR) 10 Historical Solx- MG tablet Take 10 mg by Provider HA LONG (45525) mouth 2 times daily 0 Historical Active Provider metFORMIN metFORMIN (GLUCOPHAGE) 10-06-2019 Sayda [employer] 1000 MG tablet CTHA (92474 ) Indications: Type 2 diabetes mellitus with hyperglycemia, without long-term current use of insulin (HCC) Take 1 tablet by mouth 2 times daily (with meals) 180 tablet 1 10/06/2019 Active nabumetone nabumetone (RELAFEN) Historical [facility] ealth- 500 MG tablet Take 500 Provider MERCEDES Darrell (79719) mg by mouth 2 times Historical daily 0 Active Provider Norethindrone norethindrone 09-26-2019 Solx- (AYGESTIN) 5 MG tablet MERCEDES Darrell (57597) Take 1 tablet by mouth daily To be taken days 1-20 each month. 30 tablet 11 12/21/2019 Active Ondansetron ondansetron (ZOFRAN) 4 06-07-2018 [facility]- MG tablet Indications: Edu LONG Y (81875) Nausea Take 1 tablet by mouth 3 times daily as needed for Nausea or Vomiting 30 tablet 0 06/07/2018 Active pantoprazole pantoprazole (PROTONIX) 10-23-2019 [facility]- 40 MG tablet [place] (56387) Indications: Gastroesophageal reflux disease, esophagitis presence not specified Take 1 tablet by mouth every morning (before breakfast) 90 tablet 1 10/23/2019 Active pregabalin pregabalin (LYRICA) 100 Historical [facility]- MG capsule Take 100 mg Provider Edu LONG Y (13473) by mouth daily. 0 Historical Active Provider QUEtiapine QUEtiapine (SEROQUEL) Historical [facility]- 25 MG tablet Take 25 mg Provider HA LONG (19505) by mouth as needed 0 Active QUEtiapine (SEROQUEL XR) 150 MG Historical [place] ([address]) TB24 extended release tablet Take 150 mg by mouth daily 0 Active vortioxetine VORTIoxetine (TRINTELLIX) 5 MG 11-27-[address] [facility], [place] tablet Take 2 tablets by mouth (82001) daily 1 tablet 0 11/27/2019 Active Problems Active Problems Category Problem Name Status Date Location Abdominal pain Epigastric pain Active [facility] [place], [place] ([address]) Acute and chronic Hypertrophy of tonsils Active 09-18-2011 - [facility], tonsillitis AND adenoids [place] ([address]709) Esophageal disorders Gastro-esophageal Active 05-28-2017 - [facility] reflux disease without (0000 0) esophagitis Mood disorders Major depressive Active 06-30-2016 - [facility] disorder, single (62722) episode, unspecified Other liver diseases Fatty (change of) Active 06-07-2017 - [facility] liver, not elsewhere (33028) classified Other nervous system Ulnar neuropathy Active 05-17-2017 - [facility], disorders [place] ([address]) Other nervous system Lesion of ulnar nerve, Active 05-01-2017 - [facility] disorders left upper limb (53924) Other nutritional; Obesity, unspecified Active 07-14-2017 - [facility] endocrine; and (69530) metabolic disorders Other nutritional; Morbid obesity Active 01-27-2017 [facility] [place] and [place] ([address]) metabolic disorders Residual codes; Obstructive sleep apnea Active 09-18-2011 - [facility], unclassified syndrome [place] ([address]39) Substance-related Nicotine dependence, Active 07-21-2017 - [facility] disorders unspecified, (18886) uncomplicated Unclassified Family history of other Active 04-27-2017 [facility] endocrine, nutritional (0000 0) and metabolic diseases Unclassified Unknown / UNK(Unknown) Active 02-22-2017 - [facility] (0000 0) Past or Other Problems Category Problem Name Status Date Location Allergic reactions Allergy status to Completed 07-21-2017 [facility] other drugs, System (29018) medicaments and biological substances status Biliary tract disease Calculus of Completed 06-07-2017 [facility] gallbladder with System (000 00) chronic cholecystitis without obstruction Chronic obstructive Bronchitis, not Completed 07-21-2017 [facility] pulmonary disease and specified as acute or System (05690) bronchiectasis chronic Medical Encounter for other Completed 05-28-2017 - [facility] alth examination/evaluation preprocedural Syst em (63076) examination Nonspecific chest pain Chest pain Completed 03-20-2019 - [facility] [place], [place] ([address]) Other connective tissue Muscle pain Completed 03-20-2019 - [facility] [place], disease [place] ([address]) Other connective tissue Fibromyalgia Completed 06-30-2016 [facility] [place], disease [place] ([address]) Other non-traumatic Pain in unspecified Completed 04-06-2017 - [facility] joint disorders joint (85721) Unclassified M79.7 02-22-2017 - [facility] (28661) Results Result Name Value Range Unit Interpretation Flag Date Location us abdomen complete on 2020-03-08 US Abdomen Patient Name: KARISHMA PICKARD Normal 03-08-2020 [facility] Complete System (59924) Ultrasound Exam Date/Time 03/08/2020 08:05:00 EDT Exam US Abdomen Complete Ordering Physician OLIVE PRUITT Accession Number [id number] CPT4 Codes 40543 () Reason For Exam pain after eating [...] 2020-03-08 [place] 9[facility]04 AM EDT 03-08-2020 [place], [place] ([address]) Patient Name: KARISHMA PICKARD ---Ultrasound--- Exam Date/Time 03/08/2020 08:05:00 EDT Exam US Abdomen Complete Ordering Physician OLIVE PRUITT Accession Number [id number] CPT4 Codes 34456 () Reason For Exam pain after eating [...] Time: 03/08/2020 9:03 Patient Name: KARISHMA PICKARD [place], [place] [id number] ([id number]) ---Ultrasound--- Exam Date/Time 03/08/2020 08:05:00 EDT Exam US Abdomen Complete Ordering Physician OLIVE PRUITT Accession Number [id number] CPT4 Codes 07668 () Reason For Exam pain after eating [...] protein (CRP) 2.40 0.00-0.32 MG/DL High 12-27 [facility] (00 000) Comment: Order Comment: [place]: Performed By: #### [id number] 0 ####[facility] [id number] [facility]ITAL[facility]rell [place], [place] [address]Lv# surgical pathology on 2017-07-21 Surgical [id number] [facility] DEPARTMENT OF [facility] PATHOLOGY Normal 07-21-2017 [facility] Pathology AND LABORATORY MEDICINE [address] [place] [address] [facility] SURGICAL PATHOLOGY S ystem REPORT NA ME: (08992) KARISHMA PICKARD .O.B.: 1985 32 Y F BILL ING NO.: [id number]: PAC1O 1PAC 59 PROCEDURE 07/21/2017 DATE:SURGEON: CHRISSY [...] calculi are seen within thecystic duct. Multiple workforce services representative sections are submitted in a singlecassett e. (bits ss, 1) JCK/MCDDisclaimer: The following statement applies to allimmunohistochemistry, in situ hybr idization, molecular studies, andimmunofluorescence testin g.The use of one or more reagents in the above tests is regulated as ananalyte specific reagent (ASR). T hese tests were developed and theirperformance characteris tics determined by the clinical laboratories [facility]. They have not been c leared by the US Food and DrugAdministration (FDA). The FDA has determined that such oisel arance orapproval is not necessary.All the above [...] on d ecalcified specimens.Professional Perfo rming Location: [place] [address] [place] [address]. DEPARTME NT OF PATHOLOGY AND LABORATORY MEDICINE [place], [place] [address] Comment: Performed By: #### ALESHIA ####P carlos alberto Frias is in report progress on 2017-06 PROGRESS HNO ID: [id number]: Richard Normal 07-15-2017 [place] MaritzaService: (none)Author Type: Clinic PhysicianType: Progress NotesFiled: [place] 07/15/2017 9:09 AMNote Text:Richard (68598) Maritza [facility] IommfhqtgvbpSygfqzagsvbn[address] [place] [address]Feuw: [phone] Gvigbvz 2017CHIEF COMPLAINT: Surgical Followup (6 weeks 1 [...] Take 100 mg by mouth once daily. Wjfwz975 mg dailybuPROPion XL (WELLBUTRIN XL) 300 mg [...] Hcl]; GabapentinThis note was partially generated using SMX voice recognition system,and there may be some incorrect words, spellings, and punctuation thatwere not noted in checking the note before saving.Richard Salas MD PROGRESS HNO ID: [id number]: Rocio stovall 07-15-2017 [facility] Cent[facility]rervice: (none)Author Type: (none)Type: Clinic Progress NotesFiled: 07/15/2017 9:09 [place] AMNote Text:Patient presents (15522) with:Surgical Followup: 6 weeks 1 day post op left ulnar nerve decompressionAMB ROOMING INTAKE FLOWSHEET DATARisk ScreeningDo you have concerns about personal safety or safety in the home?: NoPatient denies any pain but states at times she has a pinching in herelbow. Taking no med's for the pain. States she stopped wearing thecompression sleeve a week before [place]. cnov on 2017-07-15 CNOV Office Visit Normal 07-15-2017 [place] [facility] (LAURA) --------KARISHMA PICKARD ([id number]) 1985 F CHTD ate Time Provider Department07/15/17 8:45 AM RICHARD SALAS During [facility] and your visit today, we recorde d the following information about you:Rocio Baldwin Ma 07/15/2017 9:09 AM (53314) SignedPatient presents with: Surgical Followup: 6 weeks [...] MD 07/15/2017 9:09 AM SignedB deven Salas [facility] LeilchgjazdjXxuvmvblpmab[address] [place] [address]Cxxl: [phone] Ixqbrms 2017CHIEF COMPLAINT: Surgical Followup (6 weeks 1 [...] Gabapen tinThis note was partially generated using SMX voice recognition system, andthere may be some incorre ct words, spellings, and punctuation that were notnoted in checking the note before saving.Richard villagran, MDReferring Provider: IDANIA AVILES) [[id number]]Allergies As of Date: 07/15/2017 Noted Al lergy [...] conc 87 70-100 mg/dL Normal 07-14-2017 [facility] (33298) Comment: Performed By: #### GLUC3 ### [address] [address] progress on 2017-05 PROGRESS HNO ID: [id number]: Idania Arguello) No rmal 06-14-2017 [place]ion AvilesService: (none)Author Type: Clinic Physician AssistantType: Symone [place] NotesFiled: 06/14/2017 4:42 PMNote (90512) Text:KONSTANTIN Rags[place]-epartment of KtcpnsoqhxjuBcadskmvkkdn[address] [address]Yrxf: [phone] Oynzbpip 2016CHIEF COMPLAINT: Recheck (1 weeks 5 days [...] site. Has been taking 1-2 tablets of Clarence every 4-6 hours alongwith Tylenol 1000 mg daily. Patient was advised to discontinue use of theheating pad, she was encouraged to use ice only on the elbow. Patient wasalso encouraged to gently stretch and extend elbow on a regular basis.Discontinue use of Neosporin, wash incision site with a mild soap andwater and pat dry. She was started on oral antibiotic and provided sore121 mg ibuprofen to be taken twice a [...] Hcl]; GabapentinThis note was partially generated using SMX voice recognition system,and there may be some incorrect words, spellings, and punctuation thatwere not noted in checking the note before saving.Idania Aviles PA-C PROGRESS HNO ID: [id number]: Carlie Michelle 06-14-2017 [place] Cheryl RNService: (none)Author Clinic Type: (none)Type: Progress NotesFiled: [place] 06/14/2017 4:42 PMNote Text:KRISTAL NUNEZ (21439) INTAKE FLOWSHEET DATARisk ScreeningDo you have concerns [...] has been using heating padconstantly and that Clarence tabs 1-2 every 5-6 hours take pain to a 3, butdon't last' and has been supplementing with Tylenol 1000 mg at least oncedaily. Pt. reminded that she should not be taking more than 3000 mg per24 hours of acetaminophen and that each Clarence has 325 mg in as well. Pt.verbalizes understanding. Her temp via temporal scanner is 99. She istearful. cnov on 2017-06-14 CNOV Office Visit Normal 06-14-2017 Kaylee and (LAURA) --------KARISHMA PICKARD dominick ([id number]) 1985 F CHTD ate Time Provider Yqcrvniyap85/18/17 3:30 PM IDANIA AVILES (PA) During your visit today, we recorded the following information about you: Temperature 99 degreesLynette (35748) Cheryl ZAPIEN 06/14/2017 4:42 PM SignedAMB ROOMING [...] per 24 hours of acetaminophen andthat each Clarence has 325 mg in as well. Pt. verbalizes understanding. He rtemp via temporal scanner is 99. She is tearful.Idania Aviles PA-C 06/14/2017 4:42 PM SignedSon KONSTANTIN Esteban-CDepartment of SgcjtxzrrtbfOvveqmepukkj[address] [facility]ostK[facility] [address]Aihy: [phone] Yqvgdgsp 2016CHIEF COMPLAINT: Recheck (1 weeks 5 days [...] Gabapen tinThis note was partially generated using SMX voice recognition system, andthere may be some incorre ct words, spellings, and punctuation that were notnoted in checking the note before saving.KONSTANTIN Bautista-CReferring Provider: RICHARD SALAS [[id number]]Allergies As of Date: 06/14/2017 Noted Aller gy [...] Complete Patient Name: Miguel Angel PICKARD 06-07-2017 [facility] FIN: System (13685) [id number] Ultrasound Exam Date/Time 06/07/2017 09:16:06 EST Exam US Abdomen Complete Ordering Physician Warren AVILA JENNIFER R Accession Number [id number] CPT4 Codes 43215 () Reason For Exam Calculus of gallbladder [...] 11:28 progress on 2017-05 PROGRESS HNO ID: [id number]: Idania Arguello) No [facility] 06-07-2017 [place] JennaService: (none)Author Type: Clinic Physician AssistantType: Symone [place] NotesFiled: 06/07/2017 4:57 PMNote (64137) Text:KONSTANTIN [place]-epartment of FieylsqpqhndJjdtyquuiked[address] [facility] [address]Zgbo: [phone] Lriovjls 2016CHIEF COMPLAINT: Established Patient (decompression ulnar nerve [...] Hcl]; GabapentinThis note was partially generated using SMX voice recognition system,and there may be some incorrect words, spellings, and punctuation thatwere not noted in checking the note before saving.Idania Aviles PA-C PROGRESS HNO ID: [id number]: Naomie (Della) Normal 06-07-2017 [place] BALDO Ureñaervice: (none)Author Type: Clinic Registered NurseType: Progress NotesFiled: [place] 06/07/2017 4:57 PMNote Text:AMB ROOMING (26017) INTAKE FLOWSHEET DATAPainPain Score: 04/06Pain Location: Elbow-LeftDescription: [...] Normal 06-07-2017 Kaylee and (LAURA) --------KARISHMA PICKARD ([id number]) 1985 F CHTD ate Time Provider Oixewkgqpo05/11/17 4:00 PM IDANIA AVILES (PA) During your visit today, we recorded the following information about you:Naomie Ureña RN, RN (66333) 06/07/2017 4:57 PM Kelle [facility] INTAKE FLOWSHEET DATAPainPain Score: 04/06Pain Location: [...] Cisse PA-C 06/07/2017 4:57 PM MADAY TateCD [facility] LjzjoureyoucQlgbhntjseyr[address] [place] [address]Rtjh: [phone] Fax: December 2016[employer] COMPLAINT: Established Patient (decompression ulnar nerve left [...] Gabapen tinThis note was partially generated using SMX voice recognition system, andthere may be some [...] on 01-06-06 PLAN OF CARE HNO ID: [id number]: Salome butcher 06-02-2017 [facility] ([place])Service: ([id number]) (none)Author Type: TechnicianType: Plan of CareFiled: 06/02/2017 12:12 PMNote Text:DIRECTOR OF GUIDANCE IN PUBLIC SCHOOLS BEDSIDE DELIVERY SURVEY1. Patient to use [facility] Bedside Delivery - YES2. If fax, patient would like us to fax prescriptions to Pharmacy ofchoice a. Pharmacy: b. Location: c. Phone:3. Insurance card on file - YES4. Credit card for payment - YESPHARMACY BEDSIDE DELIVERY SERVICEPatient Name: Karishma PickardMRN: [id number] marked outpatient medications were Filled at: Art and delivered tothe patient's bedside to pharm [...] ( HYDROCHLORIDE) 4 mg tabletGeneric drug: ondansetronSalome [facility] ([place])PAGER: [phone] 2016 12:12 PM operative no on 01-06-06 OPERATIVE NO HNO ID: [id number]: Richard celis 06-02-2017 [place] PierceService: Orthopaedic [facility] SurgeryAuthor Type: PhysicianType: ([id number]) Operative ReportFiled: 06/02/2017 10:46 AMNote Text:OPERATIVE/PROCEDURE REPORTLOG ID: [id number]/Procedure Date: 06/02/2017Incision/Procedure Start Time: 9:45 AMIncision Close/Procedure End Time: 10:29 AMSurgeon(s)/Proceduralist(s) and Certified Performance Technologist(s):Surgeon(s) and Role: * Richard Salas - PrimaryRegistered Nurse Maternity Floor Supervisor: Jeanie (Rn) Aron, RNProcedure(s):Left ulnar nerve decompression [...] NoneComplications: NoneI performed the entire procedure.SIGNATURE: Richard Salas MD PATIENT NAME: Karishma PickardDATE: June 02, 2017 : 10:44 AM PAGER/CONTACT #: nursing prog on 01-06-06 NURSING HNO ID: [id number]: Mckeon (Rn) BALDO Arvizuervice: (none)Author Type: [place] 06-02-2017 [place] SILVA Registered NurseType: Taurus lópez Progress NoteFiled: 06/02/2017 8:01 AMNote Text: Hospital Nursing Progress NotePatient Name: Karishma Taylor nMRN: [id number] Location: (21821) PR Surgery/PR Surgery Pt ready for OR. Preg test negative, skin w arm and dry. Left arm coveredwith wrap for alerting purposes. Dr. Wyman to bedside to talk wi thpt. Pt laughing and joking. No concerns.This note was completed by: Denise Arvizu RN anes preop on 06-02 ANES PREOP HNO ID: [id number]: Keith Normal 06-02-2017 Brionna WymanService: AnesthesiologyEn[facility] Type: AnesthesiologistType: Anesthesia (01000) PreOpFiled: 06/02/2017 7:56 AMNote Text: ANESTHESIOLOGY DAY OF SURGERY NOTESERVICE DATE: 06/02/2017SERVICE TIME: 7:56 AMDOB: 1985Procedure(s) (LRB):DECOMPRESSION NERVE ULNAR ELBOW (Left)Surgeon(s):Richard SalasEstimated body mass index is 55.6 kg/(m2) as calculated from thefollowing: Height as of this encounter: 170.2 cm (5' 7). Weight as of this encounter: 161 kg (355 lb).Most recent hematocrit and potassium results:Hematocrit 42.3 05/28/2017Potassium 3.6 05/28/2017ANES DOS/PREOP NOTE: Vitals: 707969[place]: (!) 161 kg (355 lb)Height: 170.2 cm [...] June 02, 2017 : 7:56 AM CSN: [id number] anes post on 2016-06 ANES POST HNO ID: [id number]: Keith Michelle 06-02-2017 [facility] ([phone]) AnesthesiologyAuthor Type: AnesthesiologistType: Anesthesia PostOpFiled: [...] 02, 2017 : 1:14 PM PAGER/CONTACT #: [phone] nursing prog on 01-07-04 NURSING PROG HNO ID: [id number]: Brook Noelle guadalupe 05-31-2017 [facility] (Rn) BALDO Guerreroervice: ([id number]) (none)Author Type: Registered NurseType: Nursing Progress NoteFiled: 06/01/2017 2:13 PMNote Text:PACC Nurse Progress NoteHistory AND Physical:PACC Visit Date: 05/28/17 at [place] PACCOriginal HANDP Date: 05/28/17Labs Within Last 6 [...] history physical on 2017-05-28 HISTORY HNO ID: [id number]: Maritza Arguello) No rmal 05-28-2017 [place] PHYSICAL KnoxService: (none)Author Type: Clinic Physician AssistantType: HANDPFiled: [place] 05/28/2017 2:40 PMNote Text:HISTORY (91797) AND PHYSICAL EXAMINATIONSERVICE DATE: 05/28/2017SERVICE TIME: 1:21 [facility] CARE PHYSICIAN: CHINYERE Decker FOR VISIT:Karishma Pickard [...] or arrhythmia.Negative for h/o DVT/PE. Negative for CT or heart surgery.EKG 2008:Heart Rate 84P-R Interval 164QRSD Interval 96QT Interval 384QTC Interval 454P [place] 15I: 40 [place] -2T: 40 [place] 79QRS [place] 29ST [place] 267T Wave [place] -17EKG Severity - ABNORMAL ECG -SINUS RHYTHMnormal [...] EpicAssessmentASSESSMENTPatient has the following medical conditions:Morbidly obese-BMI 55.30CHCR-vzazqfpIcgrxnm-DL prnOSA no machineLUE painMETS:Do moderate work around [...] Abs Baso 0.07 <0.11 k/uL Normal 05-28-2017 [facility] (31270) Comment: Performed By: #### Reese CARTWRIGHT ####[facility], [place] [phone]- [phone] Abs Ness 0.85 <0.87 k/uL Normal 05-28-2017 [facility] (31140) Comment: Performed By: #### CBCDIF, B MP ####[facility], [place] [phone]- [phone] Abs Neut 10.09 1.45-7.50 k/uL High 05-28-2017 [facility] (76660) Comment: Performed By: #### CBCDIF, B MP ####[place] [address]Cleveland[place], [place] [phone]- [phone] Basophils/100 WBC Auto (Bld) 0.5 % Normal 1 07-29-2016 [facility] (14943) Comment: Performed By: #### CBCDIF, B MP ####[place] [address] [address] AveClevelIndependence, [place] [phone]- [phone] DTYPE Auto Diff Normal 05-28-2017 [facility] (68166) Comment: Performed By: #### CBCDIF, B MP ####[place] [address] [address] AveClevelIndependence, [place] [phone]- [phone] Eosinophils <0.03 <0.46 10*3/uL Normal 05-28-2017 [facility] (71893) Comment: Performed By: #### CBCDIF, B MP ####[facility]leveland[address] [place] [phone]- [phone] Eosinophils/100 leukocytes 0.1 % Normal [facility] (96091) Comment: Performed By: #### CBCDIF, B MP ####[facility]ClevelIndependence, [place] [phone]- [phone] Erythrocyte distribution 14.0 11.5-15.0 % Normal 05-28 [facility] width Auto Ratio (RBC) [place] ([address]40) Comment: Performed By: #### CBCDIF, B MP ####[facility], [place] [phone] Erythrocytes (RBC) 4.77 3.90-5.20 m/uL Normal 05-28-2017 [facility] (89713) Comment: Performed By: #### Reese CARTWRIGHT MP ####[place] [address] AveCPott[place], [place] [phone] Erythrocytes (RBC) 0.0 0 /100 WBC Normal 05-28-2017 [facility] (49654) Comment: Performed By: #### CBCSAM B MP ####[place] [address] [address], [place] [phone] Erythrocytes (RBC) <0.01 <0.01 10*6/uL Normal 05-28-2017 [facility] (84480) Comment: Performed By: #### CBCReese VARGAS MP ####[place] [address] [address], [place] [phone] Hematocrit (HCT) 42.3 36.0-46.0 % Normal 05-28-2017 [facility] (86368) Comment: Performed By: #### Reese CARTWRIGHT MP ####[place] [address], [place] [id number] [phone] Hemoglobin mass conc 13.5 11.5-15.5 g/dL Normal 7 [facility] ([facility] (97115) Comment: Performed By: #### CBCSAM B MP ####[place] [address], [place] [phone]- [phone] Lymphocytes 4.22 1.00-4.00 k/uL High 05-28-2017 [facility] (78446) Comment: Performed By: #### CBCSAM B MP ####[place] [address], [place] [phone]- [phone] Lymphocytes/100 leukocytes 27.7 % Normal [facility] (61920) Comment: Performed By: #### CBCSAM B MP ####[place] [address]ClevelInd[address], [place] [address]3435- [phone] MCH 28.3 26.0-34.0 pG Normal 05-28-2017 [facility] (02436) Comment: Performed By: #### CBCMARQUITAF B MP ####[facility], [place] 192488527- [phone] MCHC mass conc (RBC) 31.9 30.5-36.0 g/dL Normal 7 [facility] (62810) Comment: Performed By: #### CBCMARQUITAF B MP ####[place] [address], [place] [phone]- [phone] MCV 88.7 80.0-100.0 fL Normal 05-28-2017 [facility] (62617) Comment: Performed By: #### CBCSAM B MP ####[place] [address], [place] [phone]- [phone] Monocytes/100 leukocytes 5.6 % Normal 05-28 [facility] (20872) Comment: Performed By: #### CBCSAM B MP ####[place] [address], [place] [phone]- [phone] Neutrophils/100 WBC Auto (Bld) 66.1 % Normal 05-28-2017 [facility] (40467) Comment: Performed By: #### CBCDIF B MP ####[place] [address], [place] [phone]- [phone] Platelet mean volume 9.8 9.0-12.7 fL Normal 7 [facility] (PM[facility]) (40480) Comment: Performed By: #### CBCDIF, B MP ####[place] [address]ClevelIndependence, [place] 39438391- [phone] Platelets 537 150-400 k/uL High 05-28-2017 [facility] (48875) Comment: Performed By: #### Reese CARTWRIGHT MP ####[place] [address], [place] [phone]- [phone] WBC (Leukocytes) 15.24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 [place] [facility] 05-18-2017 IDANIA ([place]) [place] (0000 0) VETOJEANIE 05-01-2017 Ambulatory LENA S OCAMPO [facility] ([id number]) 04-27-2017 - Ambulatory IDANIA ([place]) [place] [facility] 04-28-2017 VEBELEN [place] (0000 0) 04-20-2017 Ambulatory [facility] LENA S OCAMPO ([id number]) 04-20-2017 - Ambulatory LENA S OCAMPO [place] [facility] 04-21-2017 [place] (0000 0) 04-06-2017 - Ambulatory MARTIN GARCIA [facility] 04-06-2017 ([id number]) 01-27-2017 - Ambulatory 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) [place] [facility] 01-27-2017 JOSE [place] (0000 0) DOYLE MARQUEZ 12-27-2017 Patient encounter Flavia Hastings Facilit y:[facility] 02-22-2017 Patient encounter M79.7 Flavia Hastings Facilit y:[facility] 06-10-2018 Patient encounter Lucio Muniz Facili ty:[facility]arita procedure [facility] 02-19-2018 - Patient encounter Lucio Montez Florenciaha Facili ty:Samarita 02-19-2018 procedure Lucio Santamariaoraha [facility] 08-31-2017 - Patient encounter Valentine Ackerman Yvonne y:Samarita 09-01-2017 procedure Valentine Bello Tyron n [facility] Pari R Pavel[facility] 07-09-2017 - Patient encounter [facility] 06-16-2017 - Patient encounter Denis Chaudhari Facility :[facility] 06-17-[address] [facility] 03-08-2020 - Subsequent Epigastric pain Olive Bolton [facility] 03-08-2020 hospital visit by physician Comment: Epigastric pain Procedures Procedure Name Date Provider Location Us abdominal real time w/image 03-08-2020 Olive [place] M [place], [place] documentation ([id number]) Plan of Treatment Plan Description Date Location Cervical cancer screen Cervical cancer screen 05-14-2022 [place], [place] ([address]) Diabetic retinal exam Diabetic retinal exam 01-29-2022 [place], [place] ([address]) A1C test (Diabetic or A1C test (Diabetic or 11-21-2020 [place], [place] Prediabetic) Prediabetic) ([address]) Lipid screen Lipid screen 11-21-2020 [place], [place] ([address]) Office Visit 07/08/2020 Office Visit 07-08-2020 - Endocrin ology [facility] [place], 07-08-2020 DO Rajat [address] [place] [address] Diabetic microalbuminuria Diabetic microalbuminuria 03-20-2020 [place], [place] test test ([address]) Flu vaccine (#1) Flu vaccine (#1) 02-27-2020 [place], [place] ([address]) DTaP/Tdap/Td vaccine (1 - DTaP/Tdap/Td vaccine ( - 2006 [place] Tdap) Tdap) ([address]36) Hepatitis B vaccine (1 of Hepatitis B vaccine (1 of 2006 [place], [place] 3 - Risk 3-dose series) 3 - Risk 3-dose series) (11940) HIV screen HIV screen 2002 [place], [place] ([address]) Diabetic foot exam Diabetic foot exam 1997 [place], [place] ([address]) Varicella vaccine (1 of 2 Varicella vaccine (1 of 2 01-02-1988 [place] - 2-dose childhood - 2-dose childhood (53046) series) series) Immunizations Vaccine Notes Status Date Location Pneumococcal pneumococcal (completed) 03-20-2019 [facility] [place] ([address] ([id number]) 23 valent Payers Payer Name Policy Number Location [facility] ([id number]) [facility] [id number] [facility] ([id number]) [facility] [id number] [facility] ([id number]) [id number] [facility] ([id number]) [id number] [facility] ([id number]) [id number] [facility] ([id number]) [id number] [facility] ([address]410) The following information is from the original human readable contentNo Payer Records FoundNo Payer Records FoundNo Payer Records FoundNo Payer Records FoundNo Payer Records FoundNo Payer Records FoundNo Payer Records Found Social History Type Social History Date Location Description Tobacco smoking status Current every day smoker 05-17-2019 [place] ([address]) Cigarettes smoked 05-17-2019 - [place] current (pack per day) 05-17-2019 ([address]24) - Reported Tobacco use and Never used 05-17-2019 [place], [place] exposure ([address]) Alcohol intake Current non-drinker of 05-17-2019 [place], [place] alcohol (finding) ([address]) Sex Assigned At Not on file [place], [place] ([address]) Exposure to SARS-CoV-2 Not sure Thelma Huggins [facility] [place], [place] (event) ([address]) The following information is from the original [...] provided) provided) 1 each by In Vitro [id number] 0 route daily As needed. 1 each by Does not [id number] 0 apply route daily Goals Patient Goal [...] sug ar drinks. Patient given after visit surgical specialty center which includes educational information on Exercise. 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 [facility] provides no warranty or guarantee of the accuracy or completeness of information in this document. UNRECOGNIZED CONTENT PROVIDED BELOW FOR UNRECOGNIZED SECTION INFORMATION SOURCE DATE CREATED AUTHOR AUTHOR'S ORGANIZATIO N 12/20/2017 [facility] DATE CREATED AUTHOR AUTHOR'S ORGANIZATIO N 12/21/2017 [facility] DATE CREATED AUTHOR AUTHOR'S ORGANIZATIO N 12/21/2017 [facility] DATE CREATED AUTHOR AUTHOR'S ORGANIZATIO N 12/21/2017 [facility] DATE CREATED AUTHOR AUTHOR'S ORGANIZATIO N 01/06/[address] [facility] DATE CREATED AUTHOR AUTHOR'S ORGANIZATIO N 06/12/2018 [facility] DATE CREATED AUTHOR AUTHOR'S ORGANIZATIO N 03/14/2020 [facility]
== END 2019-11-17 21:24 | disposition home or self-care (01) ==
LOC: ED 20:28
PROVIDERS: Emergency Provider Emergency Medicine
DX: S29.012A Strain of muscle and tendon of back wall of thorax, initial encounter (principal); E11.9 Type 2 diabetes mellitus without complications; F17.200 Nicotine dependence, unspecified, uncomplicated; X58.XXXA Exposure to other specified factors, initial encounter; Z79.84 Long term (current) use of oral hypoglycemic drugs
CPT/HCPCS: 71045; 80048; 85379; 96374; 96375; 99283; A4216; J2405

== ENCOUNTER → 2020-01-23 09:39 | Outpatient (CLI) | payer MEDICAID, SELFPAY ==
--- NOTE | 2020-01-23 10:02 | EKG12_ITS ---
Test Reason : NEW MED Blood Pressure : / mmHG Vent. Rate : 107 BPM Atrial Rate : 107 BPM P-R Int : 168 ms QRS Dur : 084 ms QT Int : 344 ms P-R-T Axes : 047 016 033 degrees QTc Int : 459 ms Sinus tachycardia Inferior infarct , age undetermined Poor R wave progression Abnormal ECG Confirmed by MITCHELL LINARES, JUNO ([id number]), state editor JOHN HOPE ([id number] on 01/26/2020 2:38:57 PM Referred By: TIFFANIE MEJIA Confirmed By:JUNO MEDRANO MD
[2020-01-23 10:31] LABS: Absolute Lymphocyte Count 6.69 X10^3/uL (0.83-4.51); Absolute Neutrophil Count 9.8 X10^3/uL (2.0-7.7); Basophil% 0.6 % (0-1); Eosinophils% 0.6 % (0-5); Hematocrit 45.8 % (37-47); Hemoglobin 14.9 g/dL (12.0-15.0); Lymphocyte # 6.69 X10^3/ul (4.0); Lymphocyte % 38.1 % (19-41); Mean Corp Hgb Conc 32.5 g/dL (32-36); Mean Corpuscular Hgb 29.2 pg (27.0-32.0); Mean Corpuscular Volume 89.8 fL (81-99); Mean Platelet Vol. 9.6 fl (6.2-12.0); Monocyte# 0.75 X10^3/uL; Monocyte% 4.3 % (0-10); NRBC Flagged by Analyzer 0 % (0-5); Neutrophil # 9.84 X10^3/uL (2.7-7.7); Neutrophil % 55.9 % (47-70); POSITIVE DIFFERENTIAL YES; POSITIVE MORPHOLOGY YES; Platelet Count 477 K/mm3 (150-450); RBC Distribution Width CV 13.1 % (11.6-14.6); RBC Distribution Width SD 42.7 fl (35.1-43.9); White Blood Count 17.6 K/mm3 (4.4-11.0)
[2020-01-23 10:32] LABS: Differential Indicated SCAN CRITERIA MET
[2020-01-23 10:52] LABS: Vitamin D,25 Hydroxy 22.9 ng/mL
[2020-01-23 10:59] LABS: ALB/GLOB Ratio 0.8 RATIO (0.9-2.4); AST(SGOT) 13 U/L (15-37); Alanine Aminotransfer ALT/SGPT 19 U/L (13-56); Albumin, Serum 3.5 g/dL (3.2-5.0); Alkaline Phosphatase 113 U/L (45-117); Anion Gap 7 (5-15); BUN 14 mg/dL (7-18); BUN/Creat Ratio 19.2 RATIO (10-20); Chloride 107 mmol/L (98-107); Cholesterol 180 mg/dL (200); Creatinine, Serum 0.73 mg/dL (0.55-1.02); EST Glomerular Filtration Rate 98 mL/min (>60); Est Glom Filt Rate - Afr Amer 118 mL/min (>60); Globulin 4.6 g/dL (2.2-4.2); Glucose 122 mg/dL (74-106); High Density Lipoprotein 27 mg/dL; Potassium 3.4 mmol/L (3.5-5.1); Protein, Total 8.1 g/dL (6.4-8.2); Sodium Level 136 mmol/L (136-145); Thyroid Stim Hormone (TSH) 2.34 uIU/mL (0.358-3.74); Triglycerides 182 mg/dL; Very Low Density Lipoprotein 36 mg/dL (5-40)
== END ==
DX: Z79.899 Other long term (current) drug therapy (principal)
CPT/HCPCS: 36415; 80053; 80061; 82306; 84443; 85025; 93005

== ENCOUNTER 2020-02-12 02:30 | Emergency (ER) | payer MEDICAID, SELFPAY ==
[2020-02-12 02:32] VITALS: BP 146/108; PULSE 102; RESP 16; TEMP 36.8; O2SAT 98; BMI 56.0
--- NOTE | 2020-02-12 03:28 | CT_ITS ---
STUDY: CT ABDOMEN AND PELVIS WITHOUT CONTRAST REASON FOR EXAM: Female, 35 years old. RUQ PAIN X FEW DAYS, HX GB, APPY, DIAB RADIATION DOSAGE (If Supplied By Facility): CTDIvol = ( 24.18 ) mGy, DLP = ( 1274.56 ) mGycm TECHNIQUE: Transaxial images were obtained from the dome of the diaphragm to the symphysis pubis without oral contrast, and without intravenous contrast. Sagittal and coronal images were reconstructed. Individualized dose optimization techniques were used for this CT. COMPARISON: None. FINDINGS: There are a few emphysematous blebs visualized in the lung bases. The visualized portions of the heart are within normal limits. Normal liver. There are surgical clips in the gallbladder fossa consistent with a prior cholecystectomy. Normal spleen. Normal pancreas. Normal bilateral adrenal glands. Normal right kidney. Normal left kidney. Normal visualized stomach. There is a small duodenal diverticulum at the level of the second third part of the duodenum measuring 1.8 x 2.2 cm. There is a focal gassy distended loop of redundant colon in the left upper quadrant. Otherwise the bowel is mostly decompressed with a minimal amount of stool. There is diverticulosis without visualized diverticulitis. There are surgical clips in the region of the appendix consistent with a prior appendectomy. Normal abdominal aorta. Normal inferior vena cava. Normal retroperitoneum. The bladder is decompressed. There is small appearing uterus. There is dependent edema in the posterior lumbar spine soft tissues. There are mild degenerative changes of the visualized lumbar spine. CT/Abdomen/Pelvis without Cont IMPRESSION: Diverticulosis no evidence of diverticulitis. Duodenal diverticulum Status post cholecystectomy Status post appendectomy. Decompressed appearance of the bladder. Electronically Signed: Denise Dominguez MD at 4:17 EDT Tel , Service support ,
--- NOTE | 2020-02-12 03:29 | ED.DCSUM_ITS ---
- ER Visit Summary Date of Service: 02/12/20 Chief Complaint: Abdominal pain History of Present Illness: The patient is a 35 F who presents with abdominal pain that is been getting worse over the past 3 days. Patient states the pain is intermittent. Patient states the pain will last for hours then go away for several hours. Patient describes the pain as aching. Patient states the pain is similar to the pain she had prior to her cholecystectomy. Patient states her pain is worse with certain movements. Patient states the pain is localized to the right upper quadrant. Patient denies any nausea or vomiting. Patient does admit to some diarrhea but denies any melena or hematochezia. Patient denies any dysuria or hematuria. Patient denies any abnormal vaginal bleeding or discharge. Physical Examination: Vital signs are stable. Patient is afebrile. Patient is in no acute distress. Oral mucosa is pink and moist. Neck is supple. Trachea is midline. There is no JVD. Heart was regular rate and rhythm. Lungs are clear and equal bilaterally. Abdomen is soft. Bowel sounds are normal. There is some right upper quadrant tenderness. There is no rebound or guarding noted. There is no Galaviz sign noted. Extremities are intact. There is no calf tenderness or edema. Cranial nerves II through XII are intact. There are no focal motor or sensory deficits noted. Test Results: CBC shows a mild leukocytosis of 15.7. Comprehensive metabolic profile was within normal limits. Urinalysis does not show any evidence of urinary tract infection. CT scan of the abdomen and pelvis was obtained. There is no acute intra-abdominal process noted. There are no retained gall stones. This was interpreted by the radiologist and reviewed by myself. Emergency Department Course and Treatment: Patient was given a dose of morphine and Zofran here. Patient was feeling better on reevaluation. Patient was instructed to use ice to the area. Patient was instructed to take Tylenol or ibuprofen as needed for pain. Patient was instructed to follow-up with her primary care physician in 5 to 7 days. Patient understood and was agreeable with the plan. All questions were answered. Disposition: Discharge home Impression: Abdominal pain This note was generated with [employer] ([employer]) dictation software. It may contain incorrect words, spelling, and punctuation that were not noted in review of the chart prior to signing ED Disposition - Plan for ED Patient: Disposition: Home or Assisted Living Diagnosis: Right upper quadrant abdominal pain of unknown etiology Instructions: ED Abdominal Pain Unkn Cause Fem Referrals: [facility] Doctor,Out of [NON-STAFF] - 5-7 Days
[2020-02-12 03:33] LABS: Absolute Lymphocyte Count 5.62 X10^3/uL (0.83-4.51); Absolute Neutrophil Count 9.3 X10^3/uL (2.0-7.7); Basophil# 0.09 X10^3/uL; Basophil% 0.6 % (0-1); Differential Indicated SCAN CRITERIA MET; Hematocrit 42.1 % (37-47); Hemoglobin 13.4 g/dL (12.0-15.0); Lymphocyte # 5.62 X10^3/ul (4.0); Lymphocyte % 35.9 % (19-41); Mean Corp Hgb Conc 31.8 g/dL (32-36); Mean Corpuscular Hgb 28.8 pg (27.0-32.0); Mean Corpuscular Volume 90.3 fL (81-99); Mean Platelet Vol. 9.4 fl (6.2-12.0); Monocyte# 0.64 X10^3/uL; Monocyte% 4.1 % (0-10); NRBC Flagged by Analyzer 0 % (0-5); Neutrophil # 9.28 X10^3/uL (2.7-7.7); Neutrophil % 59.1 % (47-70); POSITIVE DIFFERENTIAL YES; Platelet Count 428 K/mm3 (150-450); RBC Distribution Width CV 13.2 % (11.6-14.6); RBC Distribution Width SD 43.9 fl (35.1-43.9); Red Blood Count 4.66 M/mm3 (4.2-5.4); White Blood Count 15.7 K/mm3 (4.4-11.0)
[2020-02-12] MEDS: Morphine 4 MG/ML Syringe IV (03:36)
[2020-02-12] MEDS: Ondansetron 4 MG/2 ML Vial IV (03:36)
[2020-02-12 03:42] LABS: Differential Comment SCANNED
[2020-02-12 03:45] LABS: ALB/GLOB Ratio 0.7 RATIO (0.9-2.4); AST(SGOT) 15 U/L (15-37); Alanine Aminotransfer ALT/SGPT 28 U/L (13-56); Alkaline Phosphatase 113 U/L (45-117); Anion Gap 7 (5-15); BUN 13 mg/dL (7-18); BUN/Creat Ratio 16.4 RATIO (10-20); Calcium,Total 8.7 mg/dL (8.5-10.1); Chloride 108 mmol/L (98-107); Creatinine, Serum 0.79 mg/dL (0.55-1.02); EST Glomerular Filtration Rate 89 mL/min (>60); Est Glom Filt Rate - Afr Amer 107 mL/min (>60); Globulin 4.4 g/dL (2.2-4.2); Glucose 124 mg/dL (74-106); Lipase 138 U/L (73-393); Potassium 3.7 mmol/L (3.5-5.1); Protein, Total 7.4 g/dL (6.4-8.2); Sodium Level 140 mmol/L (136-145)
[2020-02-12 04:00] LABS: Bacteria 0 SEEN /hpf (None Seen); Mucous, Urine 0 SEEN /hpf (<or=2+)
[2020-02-12 04:09] LABS: Color, Urine Yellow (Yellow); Glucose, Dipstick Normal (Normal); Ketone-Dipstick 5 mg/dl (Negative); Leukocyte Esterase-Dipstick 25 /ul (Negative); Nitrite-Dipstick Negative (Negative); Occult Blood-Urine 10 /ul (Negative); Protein-Dipstick Negative (Negative); Specific Gravity, Urine 1.025 (1.002-1.030); Urine Clarity Clear (Clear); Urine Urobilinogen 1 mg/dl (Normal)
[2020-02-12 04:10] LABS: Urine Bilirubin Dipstick 1 mg/dL (Negative)
[2020-02-12 04:15] LABS: Red Blood Cells-Urine 0-5 SEEN /hpf (0-5); Squamous Epithelial Cells - UA 0-5 SEEN /hpf (5-10); White Blood Cells 0-5 SEEN /hpf (0-5)
[2020-02-12 04:56] VITALS: RESP 16
== END 2020-02-12 04:57 | disposition home or self-care (01) ==
PROVIDERS: Emergency Provider Emergency Medicine
DX: R10.11 Right upper quadrant pain (principal); F17.200 Nicotine dependence, unspecified, uncomplicated; E11.9 Type 2 diabetes mellitus without complications; Z79.84 Long term (current) use of oral hypoglycemic drugs
CPT/HCPCS: 74176; 80053; 81001; 83690; 85025; 96374; 96375; 99283; A4216; J2405

== ENCOUNTER 2020-02-23 08:00 | Outpatient (RCR) | payer MEDICAID, SELFPAY ==
--- NOTE | 2019-08-18 09:28 | HP.PTEVAL ---
Patient's Visit Information JEANNIE CADENA is a 34 year old F referred to Physical Therapy by KARISHMA Lynn with a diagnosis of BACK & NECK PAIN, FIBRO, LUMBOSACRAL RADIC AND DDD.. Date of Evaluation: 08/18/19 Physical Therapist: Gabriela Merino, PT, Cert MDT - Visit Plan Frequency: 2-3x /Week Duration: 4-6 Weeks Plan: POSTURE CORRECTION/STRENGTHENING, INSTRUCTION IN APPROPRIATE BODY MECHANICS AND ACTIVITY MODIFICATIONS. DLS STARTING WITH A NEUTRAL SPINE PROGRESSING ROM TOLERATED. HAJA UE AND LE ROM, STRETCHING AND STRENGTHENING. HEP INSTRUCTION. - Subjective Findings: Work/Leisure: UNEMPLOYEED SINCE APPROX 2011. Disability: NO. Present symptoms: BACK AND NECK PAIN. PATIENT REPORTS SHE HAS PAIN ALL OVER. NO NUMBNESS OR TINGLING. PAIN RAIDIATING IN UE'S AND LE'S. Present since: SINCE 2009. Pain Scale: WORST 10/10, LEAST 7/10. Currently: 8/10. Commenced as a result of: TUBING AT [employer]. Symptoms at onset: ARMS. Worse: PRETTY MUCH EVERYTHING. Better: NOTHING EXCEPT SCALDING HOT WATER. Disturbed sleep: YES. Previous history/Previous treatment: PAIN MGMT. NO SPINE SURGERY. NO CHELI'S. AQUATIC THERAPY X APPROX 3 TWICE HERE AT [facility] IN THE PAST. ONE CHIROPRACTIC VISIT RECENTLY - IT WAS NOT GOOD. Coughing/sneezing/straining: POSITIVE. Gait: I NICHOLAS AND SOMETIMES I HAVE TO GO REALLY SLOW. WALKING QUICK DRAINS ENERGY. I HAVE TO GO SLOW OR MY LEGS FEEL LIKE THEY ARE GOING TO GO OUT SO I HAVE TO BE CAREFUL. Difficulty initiating urinatin: NO. Accidents: NO. Unexplained weight loss: NO. Imaging: NECK X-RAY PENDING TODAY. OTHER IMAGING HAS BEEN A FEW YEARS AGO. NEUROLOGIST DR. OCAMPO HAS DONE MRI'S OF NECK AND BACK IN THE PAST. PATIENT REPORTS JAMIA SIMON SAYS EVERYTHING LOOKS NORMAL. HAS BEEN REFERRED BY ONCOLOGIST/HEMOTOLOGIST FOR NECK AND HIGH WHITE CELL COUNT. NO CANCER. PMH: HIGH WHITE CELL COUNT. FIBROMYALGIA. VITAMIN D DEFICIENCY. HAJA UE AND LE SPASTICITY. OTHER: PATIENT REPORTS THAT SHE HAS TRIED AQUATIC THERAPY TWO TIMES IN THE PAST AND SHE IS ALWAYS WORSE AFTER. STATES SHE DOESN'T KNOW HER LIMITATIONS IN THE POOL AND THEN SHE FEELS LIKE SHE WAS BY A MAC TRUCK AFTER. REQUESTING TO TRY LAND THERAPY INSTEAD. - Objective Sitting/Standing Posture: POOR. Lordosis: NORMAL. Lateral shift: NO. Relevant shift: N/A. Active Correction of posture: NE. Other Observations: SLOW INDEP GAIT INTO PT WITHOUT ANY ASSISTIVE DEVICES OR LOSS OF BALANCE. INDEP SIT TO STAND WITHOUT UE ASSIST. Motor deficit: HAJA UE AND LE STRENGTH GROSSLY 4/5 WITH MMT'ING. Sensory deficit: HAJA UE AND LE LIGHT TOUCH SENSATION INTACT. ROM deficit: HAJA UE AND LE LIGHT TOUCH SENSATION INTACT. Reflexes: NT. Dural Signs: NEGATIVE. Lumbar mvmt loss: flex - NIL. ext - MOD. R SG - MOD. L SG - MOD. PATIENT C/O INCREASED LOW BACK PAIN WITH LUMBAR ROM TESTING ALL PLANES. CERVICAL MVMT LOSS: MIN MVMT LOSS ALL PLANES WITH C/O MILD INCREASED PAIN WITH MVMT. MY NECK IS LOOSER THAN MY BACK. Core strength: POOR. POSTURUAL STRENGTH: POOR. TREATMENT: NEUROMUSCULAR REEDUCATION - RETRAINING OF MVMT AND POSTURE FOR SITTING, LYING AND STANDING ACTIVITIES. - Goals Goal 1:: DECREASE C/O BACK PAIN Goal Time Frame: 4-6 Weeks Goal 2:: IMPROVE PERSONAL CARE, LIFTING, WALKING, SITTING, STANDING, SLEEP, SOCIAL LIFE, TRAVEL, HOMEMAKING AND WORK FUNCTION. Goal Time Frame: 4-6 Weeks Goal 3:: INSTRUCT IN PROPHYLAXIS Goal Time Frame: 4-6 Weeks - Rehabilitation Potential Rehabilitation Potential: Fair - Anticipated Interventions Patient/Client Instruction: Educate patient on: Condition, Plan of Care, Risk Factors, Benefits of Fitness Program For the Purpose of:: To improve self management Therapeutic Exercise to Include: Strength training, Body mechanics, Postural training, Flexibilty training, Gait and locomotor training, Dynamic Lumbar Stabilization, Scapular Strength/Stabilization For the Purpose of:: To decrease pain, To increase ROM, To improve muscle performance and motor function, To increase tolerance to activity/condition/position, To improve ability of physical actions for home/community/work/leisure, To improve gait and locomotor functions Thank you for the opportunity to evaluate your patient. For Medicare and Medicare HMO plans, please review the plan of care and approve it. It will need to be FAXED BACK to us at [phone] for Medicare purposes. For Medicare only, by signing this I certify the plan of care. Please let me know if there are questions or concerns regarding this plan of care. Physician Signature: Date:
--- NOTE | 2019-12-07 10:01 | HP.PTREVAL ---
Carrie Jordan, ROSE-C, It has been my pleasure to treat JEANNIE CADENA over the last 5 visits for BACK & NECK PAIN, FIBRO, LUMBOSACRAL RADIC AND DDD.. Please see the progress note below for an update on the physical therapy plan of care! Subjective: PATIENT REPORTS SHE HAS TRIED TO DO HER HEP. PATIENT REPORTS SHE IS A LITTLE BETTER COMPARED TO BEFORE STARTING PT EXCEPT SHE PULLED A MUSCLE ON THE LEFT SIDE OF HER RIB CAGE. HAD TO GO TO THE EMERGENCY ROOM. PATIENT REPORTS SHE PULLED THE MUSCLE WHEN SHE TRIED TO STRETCH AND POP HER BACK. HAD AN X-RAY - NO FRACTURES. PATIENT REPORTS SHE STILL HAS A HIGH WHITE BLOOD CELL COUNT. PATIENT REPORTS HER PAIN MGMT DOCTOR WANTS HER TO HAVE A FEW MORE PT SESSIONS AND THEN SHE WANTS TO DO INJECTIONS IN HER BACK. PATIENT REPORTS SHE HAS NOTICED IF SHE DOES HER EX'S WHEN SHE IS HURTING SHE DOES HER HEP AND IT SEEMS TO HELP. STATES SHE BOUGHT A BALL TO USE BETWEEN HER KNEES AND SHE HAS A TBAND TOO. PATIENT IS AGREEABLE TO TWO MORE PT VISITS. Objective/Function: PATIENT WAS SEEN TODAY FOR RE-ASSESSMENT OF PROGRESS TOWARD THE SET PT GOALS AND THE NEED FOR FURTHER PHYSICAL THERAPY VS READINESS FOR DISCHARGE. UPON EXAM TODAY THERE ARE NO SIGNIFICANT CHANGES FROM INITIAL EVAL EXCEPT PATIENT REPORTS A LITTLE BIT OF PAIN IMPROVEMENT AND SHE IS LEARNING AND TOLERATING A HEP. SHE REPORTED FEELING BETTER AFTER EX TODAY COMPARED TO ARRIVAL FOR THE SESSION. SHE REPORTS SHE IS EXCITED TO SEE WHAT THERAPY CAN DO INCONJUNCTION WITH INJECITONS AND ENDED UP WANTING TO SCHEDULE MORE THAN JUST 2 VISIT. Plan Plan: POSTURE CORRECTION/STRENGTHENING, INSTRUCTION IN APPROPRIATE BODY MECHANICS AND ACTIVITY MODIFICATIONS. DLS STARTING WITH A NEUTRAL SPINE PROGRESSING ROM TOLERATED. HAJA UE AND LE ROM, STRETCHING AND STRENGTHENING. HEP INSTRUCTION. Goals Goal 1:: DECREASE C/O BACK PAIN Goal Time Frame: 4-6 Weeks Goal Progress: Not Progressing Goal 2:: IMPROVE PERSONAL CARE, LIFTING, WALKING, SITTING, STANDING, SLEEP, SOCIAL LIFE, TRAVEL, HOMEMAKING AND WORK FUNCTION. Goal Time Frame: 4-6 Weeks Goal Progress: Not Progressing Goal 3:: INSTRUCT IN PROPHYLAXIS Goal Time Frame: 4-6 Weeks Goal Progress: Progressing Anticipated Interventions Patient/Client Instruction: Educate patient on: Condition, Plan of Care, Risk Factors, Benefits of Fitness Program For the Purpose of:: To improve self management Therapeutic Exercise to Include: Strength training, Body mechanics, Postural training, Flexibilty training, Gait and locomotor training, Dynamic Lumbar Stabilization, Scapular Strength/Stabilization For the Purpose of:: To decrease pain, To increase ROM, To improve muscle performance and motor function, To increase tolerance to activity/condition/position, To improve ability of physical actions for home/community/work/leisure, To improve gait and locomotor functions Please do not hesitate to contact me at [phone] by phone or if you have questions or concerns regarding this new plan of care! Sincerely, Gabriela Merino, PT, Cert MDT
--- NOTE | 2019-12-28 09:07 | HP.PTREVAL ---
Carrie Jordan, CAR SCRUBBER-C, It has been my pleasure to treat JEANNIE CADENA over the last 10 visits for BACK & NECK PAIN, FIBRO, LUMBOSACRAL RADIC AND DDD.. Please see the progress note below for an update on the physical therapy plan of care! Subjective: PATIENT REPORTS HAVING AN ALISSA'T WITH PAIN MGMT YESTERDAY AND CHELI IS BEING PLANNED. STATES SHE HAS BEEN TAKING LESS PAIN MEDICINE SINCE STARTING PT. PATIENT IS HAPPY TO REPORT THAT SHE CAN MOVE BETTER NOW AND THINGS LIKE GROCERY SHOPPING (WHICH SHE ONLY DOES WHEN SHE HAS TO) ARE GOING A LOT BETTER. PATIENT REPORTS HER LEFT LEG USE TO GIVE OUT ON HER AND IT DOESN'T ANY MORE. LEFT LEG DOES STILL FEEL DIFFERENT THAN THE RIGHT THOUGH AT TIMES. Objective/Function: PATIENT IS TOLERATING SLOW EX PROGRESSION. VERY ANXIOUS ABOUT TRYING STEP UPS AGAIN BUT AGREED TO TRY AND ABLE TO COMPLETE WITHOUT INCIDENCE TODAY Plan Plan: POSTURE CORRECTION/STRENGTHENING, INSTRUCTION IN APPROPRIATE BODY MECHANICS AND ACTIVITY MODIFICATIONS. DLS STARTING WITH A NEUTRAL SPINE PROGRESSING ROM TOLERATED. HAJA UE AND LE ROM, STRETCHING AND STRENGTHENING. HEP INSTRUCTION. Goals Goal 1:: DECREASE C/O BACK PAIN Goal Time Frame: 4-6 Weeks Goal Progress: Progressing Goal 2:: IMPROVE PERSONAL CARE, LIFTING, WALKING, SITTING, STANDING, SLEEP, SOCIAL LIFE, TRAVEL, HOMEMAKING AND WORK FUNCTION. Goal Time Frame: 4-6 Weeks Goal Progress: Progressing Goal 3:: INSTRUCT IN PROPHYLAXIS Goal Time Frame: 4-6 Weeks Goal Progress: Progressing Anticipated Interventions Patient/Client Instruction: Educate patient on: Condition, Plan of Care, Risk Factors, Benefits of Fitness Program For the Purpose of:: To improve self management Therapeutic Exercise to Include: Strength training, Body mechanics, Postural training, Flexibilty training, Gait and locomotor training, Dynamic Lumbar Stabilization, Scapular Strength/Stabilization For the Purpose of:: To decrease pain, To increase ROM, To improve muscle performance and motor function, To increase tolerance to activity/condition/position, To improve ability of physical actions for home/community/work/leisure, To improve gait and locomotor functions Please do not hesitate to contact me at [phone] by phone or if you have questions or concerns regarding this new plan of care! Sincerely, Gabriela Merino, PT, Cert MDT
--- NOTE | 2020-02-01 09:02 | HP.PTREVAL ---
Carrie Jordan, ROSE-C, It has been my pleasure to treat JEANNIE CADENA over the last 13 visits for BACK & NECK PAIN, FIBRO, LUMBOSACRAL RADIC AND DDD.. Please see the progress note below for an update on the physical therapy plan of care! Subjective: PATIENT REPORTS SHE IS FEELING BETTER IN GENERAL TODAY. WANTS TO CONTINUE PT. WILL FOLLOW UP WITH PAIN MGMT IN 3 WKS. STATES NEW EX'S ARE CHALLENGING BUT WORKING ON THEM. PATIENT REPORTS SHE IS AMAZED HOW MUCH THE EX'S ARE HELPING. Objective/Function: PATIENT WAS SEEN TODAY FOR RE-ASSESSMENT OF PROGRESS TOWARD THE SET PT GOALS AND THE NEED FOR FURTHER PHYSICAL THERAPY VS READINESS FOR DISCHARGE. SHE IS TOLERATING PRE WELL AND IS A GOOD CANDIDATE TO CONTINUE PT. SLOW PROGRESS TOWARD ALL PT GOALS. PATIENT IS AGREEABLE WITH AND REQUESTING CONTINUATION OF PT. SHE MOVED THROUGH HER EX PROGRAM FASTER TODAY AND WITH LESS CUEING. INCREASED HEP TO 2X10 EA. TOLERATED. UPON EXAM TODAY: Motor deficit: RIGHT LE STRENGTH 5/5 WITH MMT'ING. LLE GROSSLY 4/5 WITH MMT'ING. Sensory deficit: HAJA UE AND LE LIGHT TOUCH SENSATION INTACT. ROM deficit: HAJA UE AND LE ROM WFL.. Reflexes: NT. Dural Signs: NEGATIVE. Lumbar mvmt loss: flex - NIL. ext - MOD. R SG - MOD. L SG - MIN. PATIENT C/O INCREASED LOW BACK PAIN WITH LUMBAR ROM TESTING ALL PLANES. CERVICAL MVMT LOSS: CERVICAL ROM IS WFL ALL PLANES AND NO C/O INCREASED PAIN WITH TESTING TODAY. Core strength: POOR. POSTURUAL STRENGTH: POOR Plan Plan: CONTINUE PT 2X'S A WEEK X 3 WK'S. POSTURE CORRECTION/STRENGTHENING, INSTRUCTION IN APPROPRIATE BODY MECHANICS AND ACTIVITY MODIFICATIONS. DLS STARTING WITH A NEUTRAL SPINE PROGRESSING ROM TOLERATED. HAJA UE AND LE ROM, STRETCHING AND STRENGTHENING. HEP INSTRUCTION. Goals Goal 1:: DECREASE C/O BACK PAIN Goal Time Frame: 4-6 Weeks Goal Progress: Progressing Goal 2:: IMPROVE PERSONAL CARE, LIFTING, WALKING, SITTING, STANDING, SLEEP, SOCIAL LIFE, TRAVEL, HOMEMAKING AND WORK FUNCTION. Goal Time Frame: 4-6 Weeks Goal Progress: Progressing Goal 3:: INSTRUCT IN PROPHYLAXIS Goal Time Frame: 4-6 Weeks Goal Progress: Progressing Anticipated Interventions Patient/Client Instruction: Educate patient on: Condition, Plan of Care, Risk Factors, Benefits of Fitness Program For the Purpose of:: To improve self management Therapeutic Exercise to Include: Strength training, Body mechanics, Postural training, Flexibilty training, Gait and locomotor training, Dynamic Lumbar Stabilization, Scapular Strength/Stabilization For the Purpose of:: To decrease pain, To increase ROM, To improve muscle performance and motor function, To increase tolerance to activity/condition/position, To improve ability of physical actions for home/community/work/leisure, To improve gait and locomotor functions Please do not hesitate to contact me at [phone] by phone or if you have questions or concerns regarding this new plan of care! Sincerely, Gabriela Merino, PT, Cert MDT
--- NOTE | 2020-02-23 08:38 | HP.PTDCSUM ---
It has been my pleasure to treat JEANNIE CADENA referred by KARISHMA Lynn, with the diagnosis of BACK & NECK PAIN, FIBRO, LUMBOSACRAL RADIC AND DDD. for a total of 16 visit(s). Discharge Date: 02/23/20 Please see the following information for a summary of their discharge status. Subjective: PATIENT REPORTS SHE IS HAVING STOMACH ISSUES. HAD AN EMERGENCY US AND HAS TO HAVE ANOTHER US. HAS BEEN PUT ON A CLEAR LIQUID DIET. STATES SHE IS STILL DOING HER HEP BUT LESS REPS. DOING AT LEAST ONE SET OF 10 ONCE A DAY. PATIENT REPORTS SHE HAS SOMETHING GOING ON WITH HER PANCREAS. LB Pain Intensity (Out of 10): 4 Neck Pain Intensity (Out of 10): 1 MID BACK PAIN Pain Intensity (Out of 10): 6 RIGHT RIB AREA Pain Intensity (Out of 10): 8 % Improvement: 77 Objective/Function: PATIENT WAS SEEN TODAY FOR RE-ASSESSMENT OF PROGRESS TOWARD THE SET PT GOALS AND THE NEED FOR FURTHER PHYSICAL THERAPY VS READINESS FOR DISCHARGE. PATIENT DEMO'S INCREASED PAINFREE LUMBAR ROM TODAY COMPARED TO LAST RE-CHECK. THERE ARE NO OTHER SIGNIFICANT CHANGES UPON TESTING TODAY COMPARED TO LAST RE-CHECK. HER NECK ROM REMAINS FULL AND TESTING DOES NOT INCREASE HER PAIN. SHE HAS BACKED DOWN ON HEP REPS DO TO STOMACH ISSUES BUT SHE KNOWS HER EX'S WELL AND WILL CONTINUE TOLERATED. UPON EXAM TODAY: Motor deficit: RIGHT LE STRENGTH 5/5 WITH MMT'ING. LLE GROSSLY 4/5 WITH MMT'ING. Sensory deficit: HAJA UE AND LE LIGHT TOUCH SENSATION INTACT. ROM deficit: HAJA UE AND LE ROM WFL.. Reflexes: NT. Dural Signs: NEGATIVE. Lumbar mvmt loss: flex - NIL. ext - MIN. R SG - MIN. L SG - MIN. PATIENT REPORTS SHE CAN FEEL THAT SHE CAN BEND BACKWARDS BETTER NOW. TESTING OF LUMBAR ROM DID NOT RESULT IN C/O INCREASED PAIN. CERVICAL MVMT LOSS: CERVICAL ROM IS WFL ALL PLANES AND NO C/O INCREASED PAIN WITH TESTING TODAY. Core strength: POOR. POSTURUAL STRENGTH: POOR Goal 1:: DECREASE C/O BACK PAIN Goal Progress: Goal Met Goal 2:: IMPROVE PERSONAL CARE, LIFTING, WALKING, SITTING, STANDING, SLEEP, SOCIAL LIFE, TRAVEL, HOMEMAKING AND WORK FUNCTION. Goal Progress: Goal Met Goal 3:: INSTRUCT IN PROPHYLAXIS Goal Progress: Goal Met Plan: D/C TO INDEP HEP. PATIENT IS AGREEABLE. If there are questions or concerns regarding this patient's physical therapy, please feel free to call me at [phone]. Thank you for the referral of this patient. Sincerely, Gabriela Merino, PT, Cert MDT
== END 2020-02-23 19:00 | disposition home or self-care (01) ==
LOC: PT 08:00
PROVIDERS: Referring Provider Nurse Practitioner Family; Visit Provider Nurse Practitioner Family
DX: M54.9 Dorsalgia, unspecified (principal); M54.2 Cervicalgia; M79.7 Fibromyalgia; M54.17 Radiculopathy, lumbosacral region; M51.37 Other intervertebral disc degeneration, lumbosacral region
CPT/HCPCS: 97110; 97112; 97162; 97164; 97530

== ENCOUNTER 2021-02-21 06:55 | Emergency (ER) | payer MEDICAID, SELFPAY ==
[2021-02-21 06:57] VITALS: BP 153/95; PULSE 95; RESP 18; TEMP 36.6; O2SAT 97; BMI 55.3
--- NOTE | 2021-02-21 07:24 | EX.ED.DYSGE1 ---
HPI History of Present Illness Chief Complaint: Other, Pain/Inj Informant: patient Narrative Narrative: Patient has patient of bilateral arm pain. It is mostly the dorsal lateral aspect of upper and lower right and left arms. She is not have neck pain chest pain numbness tingling or weakness. She has had the symptoms for and in excess of 10 years. She had reportedly an extensive evaluation by multiple physicians. She currently sees her primary physician, rheumatology, and pain management for this. She is currently taking nabumetone and baclofen. She has an allergy to gabapentin. The symptoms are really not different or new. She states every now and then it gets bad and she has trouble getting on top of it. Nothing makes it better or worse. Pressing makes it a little bit worse but not markedly or any significant change. No fevers or chills. No trauma. [facility] Medical History Balance problem Chronic neck and back pain Diabetes Fatigue Home Medications metformin 1,000 mg PO BID 09/29/19 [History Last Taken 09/29/19] norethindrone acetate 5 mg PO DAILY 09/29/19 [History Last Taken 09/29/19] baclofen 1 tab PO TID 11/17/19 [History Last Taken Unknown] nabumetone 500 mg PO BID 11/17/19 [History Last Taken Unknown] buspirone 10 mg PO BID 02/12/20 [History Last Taken Unknown] brexpiprazole [Rexulti] 1 mg PO DAILY 02/21/21 [History Last Taken Unknown] clonidine HCl 0.1 mg PO DAILY 02/21/21 [History Last Taken Unknown] lisinopril 10 mg PO DAILY 02/21/21 [History Last Taken Unknown] Allergy/AdvReac Type Severity Reaction Status Date / Time amitriptyline AdvReac NEEDS Verified 02/21/21 07:01 FOLLOW-UP duloxetine [From Cymbalta] AdvReac NEEDS Verified 02/21/21 07:01 FOLLOW-UP mirtazapine [From Remeron] AdvReac NEEDS Verified 02/21/21 07:01 FOLLOW-UP Surgical History History of appendectomy History of tonsillectomy Hx of cholecystectomy Social History Smoking Status: Current every day smoker tobacco type: cigarettes ROS ROS ED Constitutional Constitutional ED: Denies chills or fever(s) Cardiovascular Cardiovascular: Denies chest pain, palpitations or racing heartbeat Respiratory/Chest Respiratory/Chest: Denies cough, dyspnea or dyspnea on exertion Gastrointestinal Gastrointestinal: Denies abdominal pain, nausea or vomiting Genitourinary Genitourinary ED: Denies dysuria Musculoskeletal Musculoskeletal: Reports arthralgias and myalgias; Denies back pain or neck pain Integumentary Denies rash Neurologic Neurologic: Denies headache(s), paresthesias or weakness Psychiatric Psychiatric: Reports depression Endocrine Endocrinology: Denies polydipsia or polyuria Allergic/Immunologic Allergic/Immunologic ED: Denies urticaria EXAM Physical Exam Const Vital Signs: 02/21/21 06:57 Temperature 97.8 F Temperature Source Temporal Pulse Rate 95 Respiratory Rate 18 Blood Pressure 153/95 H Blood Pressure Mean 114 Pulse Ox 97 Oxygen Delivery Method Room Air Positive well nourished, well developed and obese General Appearance ED: well developed and NAD; Negative for cyanotic or diaphoretic Nutritional Appearance: obese HEENT Negative for trauma Eyes EOMs intact bilaterally Neck no lymphadenopathy and supple Neck Narrative: I get no tenderness or change in her symptoms with turning of her neck, looking up down or axial load. General: Negative for tenderness Chest Wall inspection of chest normal and palpation of chest normal Resp normal respiratory effort and clear to auscultation bilaterally Effort and Inspection: Negative for pain with movement Auscultation: Negative for rales, rhonchi or wheezes Cardio regular rate and regular rhythm GI normal to inspection, nondistended, normoactive bowel sounds and non-tender Palpation: soft Back/Spine no CVA tenderness Extremity normal to inspection Extremity Narrative: She has mild tenderness to the dorsal aspect of both forearms. She has mild tenderness to the lateral aspect of both upper arms. Yet there are no skin changes. There is no distended veins. No asymmetry. Pulses are normal. No rashes. No temperature variation. 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 No neurologic finding. Sensorium / Orientation: alert Sensory Exam: No sensory level loss detected Motor Exam: strength 5/5 throughout; Negative for general weakness Psych mental status grossly normal Skin no rashes or lesions noted MDM MDM MDM Narrative Medical decision making narrative: This is really an exacerbation of her chronic pain syndrome. She reports extensive evaluation and regular follow-ups. She is having exacerbation. I did do an online prescribing report. It is consistent with records she gives me. I will give her a dose of meds here. I explained that I cannot give prescriptions to go as they can alter her pain management contract. She understands this. We will get her a dose of Dilaudid and Toradol to try to help this to get better. Discharge Plan Triage Chief Complaint: Other, Pain/Inj ED Provider: Jose Juan Pablo Dx/Rx/DC Orders Clinical Impression: Arm pain, chronic Instructions: ED Pain Management: Chronic Prescriptions: No Action metformin 500 MG tablet 1,000 mg PO BID RF: 0 norethindrone acetate 5 MG tablet 5 mg PO DAILY RF: 0 baclofen 10 mg tablet 1 tab PO TID RF: 0 nabumetone 500 MG tablet 500 mg PO BID RF: 0 buspirone 10 MG tablet 10 mg PO BID RF: 0 clonidine HCl 0.1 mg Tablet 0.1 mg PO DAILY RF: 0 lisinopril 10 mg Tablet 10 mg PO DAILY RF: 0 Rexulti 1 mg Tablet 1 mg PO DAILY RF: 0 Primary Care Provider: NOT,DEFINED Referrals: NOT,DEFINED [Primary Care Provider] - Activity Restrictions/Additional Instructions: Follow-up with your pull up hand, pain management physician, primary physician in the next few days for recheck. Disposition Disposition: Home, Self Care
[2021-02-21] MEDS: Ketorolac 30 MG/ML Syringe IM (07:40)
[2021-02-21] MEDS: HYDROmorphone 1 MG/ML Syringe SC (07:40)
[2021-02-21 07:50] VITALS: BP 138/79; PULSE 62; RESP 15; O2SAT 98
== END 2021-02-21 07:50 | disposition home or self-care (01) ==
PROVIDERS: Emergency Provider Emergency Medicine
DX: M79.601 Pain in right arm (principal); M79.602 Pain in left arm; G89.29 Other chronic pain; F17.210 Nicotine dependence, cigarettes, uncomplicated; E66.9 Obesity, unspecified; E11.9 Type 2 diabetes mellitus without complications; Z79.84 Long term (current) use of oral hypoglycemic drugs; Z79.899 Other long term (current) drug therapy
CPT/HCPCS: 96372; 96374; 99282

== ENCOUNTER 2021-03-02 03:50 | Emergency (ER) | payer MEDICAID, SELFPAY ==
[2021-03-02 03:52] VITALS: BP 151/97; PULSE 98; RESP 20; TEMP 36.7; O2SAT 98; BMI 58.1
--- NOTE | 2021-03-02 04:11 | EKG12_ITS ---
Test Reason : CHEST OTHER Blood Pressure : / mmHG Vent. Rate : 090 BPM Atrial Rate : 090 BPM P-R Int : 168 ms QRS Dur : 088 ms QT Int : 364 ms P-R-T Axes : 030 -05 017 degrees QTc Int : 445 ms Normal sinus rhythm Normal ECG Confirmed by DAMASO LINARES, ELENITA ([id number]), news copy editor DOV ACOSTA ([id number]) on 03/04/2021 8:09:42 AM Referred By: ANTHONY Confirmed By:FRANNIE PETIT MD
--- NOTE | 2021-03-02 04:19 | EDS_ITS ---
HPI History of Present Illness Chief Complaint: Chest Other Informant: patient Narrative Narrative: Presents intermittent sharp sensations left lower chest under the breasts since Wednesday. Reports spasm sensations comes and goes. Currently no symptoms. Reports called her PCP office Wednesday was told to go to the ED. She states due to symptoms worsening came for evaluation. Cough for 2 weeks. No fevers. No recent travel or surgeries. No history of PE or DVT. No family history of MIs at young age. She states she has history anxiety therefore wanted evaluation. Prior similar symptoms: Yes PFSH PFS Medical History Balance problem Chronic neck and back pain Diabetes Fatigue Home Medications metformin 1,000 mg PO BID 09/29/19 [History Last Taken 09/29/19] norethindrone acetate 5 mg PO DAILY 09/29/19 [History Last Taken 09/29/19] baclofen 1 tab PO TID 11/17/19 [History Last Taken Unknown] nabumetone 500 mg PO BID 11/17/19 [History Last Taken Unknown] buspirone 10 mg PO BID 02/12/20 [History Last Taken Unknown] brexpiprazole [Rexulti] 1 mg PO DAILY 02/21/21 [History Last Taken Unknown] clonidine HCl 0.1 mg PO DAILY 02/21/21 [History Last Taken Unknown] lisinopril 10 mg PO DAILY 02/21/21 [History Last Taken Unknown] pantoprazole [Protonix] 20 mg PO DAILY 03/02/21 [History Last Taken Unknown] vortioxetine [Trintellix] 20 mg PO DAILY 03/02/21 [History Last Taken Unknown] Allergy/AdvReac Type Severity Reaction Status Date / Time amitriptyline AdvReac NEEDS Verified 02/21/21 07:01 FOLLOW-UP duloxetine [From Cymbalta] AdvReac NEEDS Verified 02/21/21 07:01 FOLLOW-UP mirtazapine [From Remeron] AdvReac NEEDS Verified 02/21/21 07:01 FOLLOW-UP Surgical History History of appendectomy History of tonsillectomy Hx of cholecystectomy Social History Smoking Status: Current every day smoker tobacco type: cigarettes ROS ROS ED Constitutional Constitutional ED: Denies chills, fever(s) or sweats Eyes Eyes: Denies change in vision ENT ENT ED: Denies dysphagia or sore throat Cardiovascular Cardiovascular: Reports chest pain; Denies leg edema, palpitations or racing heartbeat Respiratory/Chest Respiratory/Chest: Reports cough; Denies dyspnea or dyspnea on exertion Gastrointestinal Gastrointestinal: Denies abdominal pain, diarrhea, nausea or vomiting Genitourinary Genitourinary ED: Denies dysuria, hematuria or urinary frequency Musculoskeletal Musculoskeletal: Denies back pain, extremity pain or neck pain Integumentary Denies rash or wounds Neurologic Neurologic: Denies headache(s), paresthesias or weakness EXAM Physical Exam Const Vital Signs: 03/02/21 03:52 03/02/21 03:55 Temperature 98.0 F Temperature Source Temporal Pulse Rate 98 Respiratory Rate 20 H Respiratory Effort Normal Respiratory Pattern Tachypnea Blood Pressure 151/97 H Blood Pressure Mean 115 Pulse Ox 98 Oxygen Delivery Method Room Air Positive well nourished and well developed General Appearance ED: well developed and NAD HEENT Reports moist mucous membranes normocephalic and atraumatic Eyes PERRL, EOMs intact bilaterally and conjunctivae normal General Eye ED: Yes normal appearance of both eyes Neck no lymphadenopathy and supple General: Negative for tenderness Chest Wall inspection of chest normal and palpation of chest normal Chest Narrative: No rash Chest: Negative for tenderness Resp normal respiratory effort and normal air movement Effort and Inspection: symmetric chest movement; Negative for respiratory distress Cardio regular rate, regular rhythm and no murmurs Peripheral Pulses: pulses 2+ throughout GI normal to inspection, nondistended, normoactive bowel sounds and non-tender Palpation: Negative for guarding or rebound tenderness present Back/Spine no CVA tenderness and no thoracic nor lumbar tenderness Extremity normal to inspection General Extremety ED: Negative for edema or tenderness General Extremity: Negative for edema Neuro oriented x3 and no sensory deficits noted Sensorium / Orientation: awake and alert Skin no rashes or lesions noted and no wounds MDM MDM MDM Narrative Medical decision making narrative: Patient currently asymptomatic. Vital signs stable. EKG chest x-ray normal. She is present with atypical symptoms. PERC criteria negative. Of note patient is on progesterone therapy and not estrogen with her tobacco history. There is no rash on exam. I do not suspect this is cardiac in nature. Patient currently symptom-free. She is on anti- inflammatories at home. Discussed monitoring symptoms follow-up with her PCP. All questions were answered. Radiography Chest X-Ray - ED: 2 View and Read by ED Physician Diagnostic Testin view chest x-ray: No acute process. EKG Initial EKG: Attestation: I personally reviewed and interpreted this EKG as follows: Comments: Sinus rate of 90, no ST changes. Isolated T wave inversion in leads III. Nonspecific. Discharge Plan Triage Chief Complaint: Chest Other ED Provider: Miguel Casanova Dx/Rx/DC Orders Clinical Impression: Chest pain Instructions: ED Chest Pain, Noncardiac Prescriptions: No Action metformin 500 MG tablet 1,000 mg PO BID RF: 0 norethindrone acetate 5 MG tablet 5 mg PO DAILY RF: 0 baclofen 10 mg tablet 1 tab PO TID RF: 0 nabumetone 500 MG tablet 500 mg PO BID RF: 0 buspirone 10 MG tablet 10 mg PO BID RF: 0 clonidine HCl 0.1 mg Tablet 0.1 mg PO DAILY RF: 0 lisinopril 10 mg Tablet 10 mg PO DAILY RF: 0 Rexulti 1 mg Tablet 1 mg PO DAILY RF: 0 pantoprazole [Protonix] 20 mg Tablet,Delayed Release (Dr/Ec) 20 mg PO DAILY RF: 0 Trintellix 20 mg tablet 20 mg PO DAILY RF: 0 Referrals: CYRUS BOWENS [Other] - 3-5 Days Disposition Disposition: Home, Self Care
--- NOTE | 2021-03-02 04:20 | RAD_ITS ---
STUDY: X-RAY CHEST REASON FOR EXAM: Female, 36 years old patient with chest pain. TECHNIQUE: PA and lateral views of the chest. COMPARISON: 11/17/2019. FINDINGS: The lungs are expanded. There are prominent bronchovascular markings. There is interstitial thickening present in both lungs. There is no demonstrated pleural abnormality. Normal size heart. Normal mediastinum and patricia. There is prominence of the pulmonary hilar arteries without peripheral pulmonary vascular congestion. Normal visualized aortic arch and descending thoracic aorta. Normal visualized thoracic spine. Normal visualized ribs, clavicles, and shoulders. There is no demonstrated abnormality of the visualized soft tissue structures of the upper abdomen. RAD/Chest PA and Lateral IMPRESSION: No radiographic evidence of acute cardiopulmonary disease. Electronically Signed: Tereza Mccabe MD at 5:40 EDT , Service support ,
[2021-03-02 04:49] VITALS: BP 147/80; PULSE 88; RESP 16
== END 2021-03-02 04:50 | disposition home or self-care (01) ==
PROVIDERS: Emergency Provider Emergency Medicine
DX: R07.9 Chest pain, unspecified (principal); F17.210 Nicotine dependence, cigarettes, uncomplicated; E11.9 Type 2 diabetes mellitus without complications; Z79.84 Long term (current) use of oral hypoglycemic drugs; Z79.899 Other long term (current) drug therapy
CPT/HCPCS: 71046; 93005; 99282

== ENCOUNTER 2021-07-23 10:27 | Emergency (ER) | payer MEDICAID, SELFPAY ==
[2021-07-23 10:31] VITALS: BP 148/102; PULSE 113; RESP 17; TEMP 35.8; O2SAT 98; BMI 55.3
--- NOTE | 2021-07-23 10:47 | CT_ITS ---
STUDY: CT BRAIN WITHOUT CONTRAST REASON FOR EXAM: Female, 36 years old. Headache. One week history of nausea and vomiting. RADIATION DOSAGE (If Supplied By Facility): CTDIvol = ( 44.99 ) mGy, DLP = ( 846.73 ) mGycm TECHNIQUE: Transaxial CT imaging of the brain was performed without administration of intravenous contrast material. Individualized dose optimization techniques were used for this CT. COMPARISON: No relevant priors. FINDINGS: Normal soft tissue structures. Normal calvarium. Normal size ventricles and extra-axial spaces for the patient''s age. Normal white matter tracts of the cerebral hemispheres. Normal basal ganglia and thalami. Normal brainstem. Normal cerebellum. There is no intracranial hemorrhage. There are no findings of an acute ischemic infarction. Normal visualized paranasal sinuses. CT/Brain/Head without Contrast IMPRESSION: Normal unenhanced CT scan of the brain. Electronically Signed: Sarwat Wheat MD at 11:21 EST ,
--- NOTE | 2021-07-23 10:58 | EDS_ITS ---
HPI History of Present Illness Chief Complaint: Headache Informant: patient Narrative Narrative: Presents for evaluation persistent right frontal headache for the past week. Denies trauma. Patient states had nonproductive cough a week ago which resolved. She was seen at urgent care she states an outpatient Covid testing was performed returning negative. States she had 1 emesis on Wednesday. No photophobia or phonophobia. Denies any visual changes. Denies any history of headaches. History of anxiety depression and mood disorders on medications. Also on blood pressure medications. Denies any fevers. Reported called her PCP office was referred to the ED to rule out bleed or swelling. Prior similar symptoms: No PFSH PFSH Medical History Balance problem Chronic neck and back pain Diabetes Fatigue Ulnar nerve entrapment Home Medications norethindrone acetate 5 mg PO DAILY 09/29/19 [History Last Taken 09/29/19] baclofen 1 tab PO TID 11/17/19 [History Last Taken Unknown] nabumetone 500 mg PO BID 11/17/19 [History Last Taken Unknown] buspirone 10 mg PO BID 02/12/20 [History Last Taken Unknown] brexpiprazole [Rexulti] 1 mg PO DAILY 02/21/21 [History Last Taken Unknown] clonidine HCl 0.1 mg PO DAILY 02/21/21 [History Last Taken Unknown] lisinopril 10 mg PO DAILY 02/21/21 [History Last Taken Unknown] pantoprazole [Protonix] 20 mg PO DAILY 03/02/21 [History Last Taken Unknown] vortioxetine [Trintellix] 20 mg PO DAILY 03/02/21 [History Last Taken Unknown] dapagliflozin [Farxiga] 5 mg PO DAILY 07/23/21 [History Last Taken Unknown] hydrocodone-acetaminophen [Lacon] 1 tab PO BID PRN 07/23/21 [History Last Taken Unknown] Allergy/AdvReac Type Severity Reaction Status Date / Time amitriptyline AdvReac NEEDS Verified 07/23/21 10:28 FOLLOW-UP duloxetine [From Cymbalta] AdvReac NEEDS Verified 07/23/21 10:28 FOLLOW-UP mirtazapine [From Remeron] AdvReac NEEDS Verified 07/23/21 10:28 FOLLOW-UP Surgical History History of appendectomy History of tonsillectomy Hx of cholecystectomy Social History Smoking Status: Current every day smoker tobacco type: cigarettes ROS ROS ED Constitutional Constitutional ED: Denies chills, fever(s) or sweats Eyes Eyes: Denies change in vision ENT ENT ED: Denies dysphagia or sore throat Cardiovascular Cardiovascular: Denies chest pain, leg edema, palpitations or racing heartbeat Respiratory/Chest Respiratory/Chest: Denies cough, dyspnea or dyspnea on exertion Gastrointestinal Gastrointestinal: Denies abdominal pain, diarrhea, nausea or vomiting Genitourinary Genitourinary ED: Denies dysuria, hematuria or urinary frequency Musculoskeletal Musculoskeletal: Denies back pain, extremity pain or neck pain Integumentary Denies rash or wounds Neurologic Neurologic: Reports headache(s); Denies paresthesias or weakness EXAM Physical Exam Const Vital Signs: 07/23/21 10:31 07/23/21 12:10 Temperature 96.5 F L Temperature Source Temporal Pulse Rate 113 H Respiratory Rate 17 16 Blood Pressure 148/102 H 111/63 Blood Pressure Mean 117 79 Pulse Ox 98 Oxygen Delivery Method Room Air Positive well nourished and well developed General Appearance ED: well developed and NAD HEENT Reports TM's clear and moist mucous membranes normocephalic and atraumatic Tympanic Membrane ED: Yes TM's clear Eyes PERRL, EOMs intact bilaterally and conjunctivae normal General Eye ED: Yes normal appearance of both eyes Neck no lymphadenopathy, supple and no meningeal signs General: Negative for tenderness Chest Wall Chest: Negative for tenderness Resp normal respiratory effort and normal air movement Effort and Inspection: symmetric chest movement; Negative for respiratory distress Cardio regular rhythm and no murmurs Rate: tachycardic Peripheral Pulses: pulses 2+ throughout GI normal to inspection, nondistended, normoactive bowel sounds and non-tender Palpation: Negative for guarding or rebound tenderness present Back/Spine no CVA tenderness and no thoracic nor lumbar tenderness Extremity normal to inspection General Extremety ED: Negative for edema or tenderness General Extremity: Negative for edema Neuro oriented x3, CN's II-XII intact bilaterally and no sensory deficits noted Sensorium / Orientation: awake and alert Skin no rashes or lesions noted and no wounds MDM MDM MDM Narrative Medical decision making narrative: Patient with no focal neuro deficits. No meningismus. New onset headaches, CT head was obtained showed no acute process. Treated with Reglan Benadryl and fluids on reevaluation she is feeling better. She is more reassuring with a negative CT. She does not typically have headaches. She states she has had persistent symptoms throughout the week. She will continue her Tylenol Motrin as needed. She is given neurology for outpatient follow-up. Patient is being discharged under pandemic conditions under declared global, national and state disaster activation, with limited medical resources. Patient and community understands this. Results discussed in layman's terms to the patient satisfaction. All questions answered in layman's terms. Patient understands importance of follow-up care as directed. Patient has been instru cted to return to the ED immediately if new symptoms, problems, or questions occur. We mutually agree with the plan of disposition. The patient understand that they may call or return with any questions or concerns at any time. Radiography Diagnostic Testing: Clinical Impression(s) from Imaging Studies Brain CT 07/23/21 10:47 IMPRESSION: Normal unenhanced CT scan of the brain. Electronically Signed: Sarwat Wheat MD at 11:21 EST , Discharge Plan Triage Chief Complaint: Headache ED Provider: Miguel Casanova Dx/Rx/DC Orders Clinical Impression: Headache Instructions: ED Headache Unspecified Prescriptions: No Action norethindrone acetate 5 MG tablet 5 mg PO DAILY RF: 0 baclofen 10 mg tablet 1 tab PO TID RF: 0 nabumetone 500 MG tablet 500 mg PO BID RF: 0 buspirone 10 MG tablet 10 mg PO BID RF: 0 clonidine HCl 0.1 mg Tablet 0.1 mg PO DAILY RF: 0 lisinopril 10 mg Tablet 10 mg PO DAILY RF: 0 Rexulti 1 mg Tablet 1 mg PO DAILY RF: 0 pantoprazole [Protonix] 20 mg Tablet,Delayed Release (Dr/Ec) 20 mg PO DAILY RF: 0 Trintellix 20 mg tablet 20 mg PO DAILY RF: 0 hydrocodone-acetaminophen [Lacon] 5-325 mg Tablet 1 tab PO BID PRN (Reason: Pain) RF: 0 Farxiga 5 mg Tablet 5 mg PO DAILY RF: 0 Referrals: CYRUS BOWENS [Other] Armand Castelan MD [STAFF PHYSICIAN] - 1 Week Disposition Disposition: Home, Self Care Discharge Date/Time: 07/23/21 12:50
[2021-07-23] MEDS: DiphenhydrAMINE 50 MG/ML Syringe 25 MG IV (11:30)
[2021-07-23] MEDS: 0.9% Normal Saline 1,000 ML 999 ML IV (11:31)
[2021-07-23] MEDS: Metoclopramide 10 MG/2 ML Vial IV (11:31)
[2021-07-23 12:10] VITALS: BP 111/63; RESP 16
== END 2021-07-23 12:50 | disposition home or self-care (01) ==
PROVIDERS: Emergency Provider Emergency Medicine; Visit Provider Emergency Medicine
DX: R51.9 Headache, unspecified (principal); E11.9 Type 2 diabetes mellitus without complications; F32.A Depression, unspecified; F41.9 Anxiety disorder, unspecified; F17.210 Nicotine dependence, cigarettes, uncomplicated; Z79.84 Long term (current) use of oral hypoglycemic drugs; Z79.899 Other long term (current) drug therapy
CPT/HCPCS: 70450; 96374; 96375; 99283; J7030; A4216

== ENCOUNTER 2021-09-03 17:28 | Emergency (ER) | payer MEDICAID, SELFPAY ==
[2021-09-03 17:29] VITALS: BP 160/89; PULSE 96; RESP 15; TEMP 36.2; O2SAT 99; BMI 54.8
[2021-09-03 17:30] VITALS: BP 160/89; PULSE 96; RESP 15; TEMP 36.2; O2SAT 99
--- NOTE | 2021-09-03 17:53 | EDS_ITS ---
HPI History of Present Illness Chief Complaint: Wound Informant: patient Onset/Context/Timing Onset: Yesterday Context: Gradual Onset Current Severity: Mild Maximum Severity: Mild Narrative Narrative: Patient presents secondary to blisters on her abdomen. She had /vaginal surgery on Wednesday in [place]. Last evening she noted some fluid-f illed blisters on her abdomen. She did few more today. She called her doctor's office who was concerned she may be having allergic reaction and sent her to the emergency room. She otherwise feels well. [facility] Medical History Balance problem Chronic neck and back pain Diabetes Fatigue Ulnar nerve entrapment Home Medications norethindrone acetate 5 mg PO DAILY 09/29/19 [History Last Taken 09/29/19] baclofen 1 tab PO TID 11/17/19 [History Last Taken Unknown] nabumetone 500 mg PO BID 11/17/19 [History Last Taken Unknown] buspirone 10 mg PO BID 02/12/20 [History Last Taken Unknown] brexpiprazole [Rexulti] 1 mg PO DAILY 02/21/21 [History Last Taken Unknown] clonidine HCl 0.1 mg PO DAILY 02/21/21 [History Last Taken Unknown] lisinopril 10 mg PO DAILY 02/21/21 [History Last Taken Unknown] pantoprazole [Protonix] 20 mg PO DAILY 03/02/21 [History Last Taken Unknown] vortioxetine [Trintellix] 20 mg PO DAILY 03/02/21 [History Last Taken Unknown] dapagliflozin [Farxiga] 5 mg PO DAILY 07/23/21 [History Last Taken Unknown] hydrocodone-acetaminophen [[place]] 1 tab PO BID PRN 07/23/21 [History Last Taken Unknown] Allergy/AdvReac Type Severity Reaction Status Date / Time amitriptyline AdvReac NEEDS Verified 09/03/21 17:30 FOLLOW-UP duloxetine [From Cymbalta] AdvReac NEEDS Verified 09/03/21 17:30 FOLLOW-UP mirtazapine [From Remeron] AdvReac NEEDS Verified 09/03/21 17:30 FOLLOW-UP Surgical History History of appendectomy History of tonsillectomy Hx of cholecystectomy Social History Smoking Status: Current every day smoker tobacco type: cigarettes ROS ROS ED Constitutional Constitutional ED: Denies chills or fever(s) Eyes Eyes: Denies change in vision ENT ENT ED: Denies sore throat Cardiovascular Cardiovascular: Denies chest pain Respiratory/Chest Respiratory/Chest: Denies cough or dyspnea Gastrointestinal Gastrointestinal: Reports abdominal pain; Denies nausea or vomiting Genitourinary Genitourinary ED: Denies dysuria Musculoskeletal Musculoskeletal: Denies back pain Integumentary Reports other Details: Abdominal wall blister ; Denies rash Neurologic Neurologic: Denies headache(s) or weakness Allergic/Immunologic Allergic/Immunologic ED: Denies urticaria EXAM Physical Exam Const Vital Signs: 09/03/21 17:29 09/03/21 17:30 Temperature 97.2 F L 97.2 F L Temperature Source Temporal Temporal Pulse Rate 96 96 Respiratory Rate 15 15 Blood Pressure 160/89 H 160/89 H Blood Pressure Mean 112 112 Pulse Ox 99 99 Oxygen Delivery Method Room Air Room Air Positive well nourished and well developed General Appearance ED: well developed HEENT Reports moist mucous membranes Eyes PERRL and EOMs intact bilaterally Neck supple Chest Wall inspection of chest normal and palpation of chest normal Resp normal respiratory effort and clear to auscultation bilaterally Cardio regular rate and regular rhythm GI GI Narrative: 3 separate areas of superficial skin avulsion from recently ruptured blisters, the largest of which measures 3 x 3 cm. No sign of surrounding cellulitis. Palpation: soft Extremity normal to inspection Neuro oriented x3 Sensorium / Orientation: alert Psych mental status grossly normal MDM MDM MDM Narrative Medical decision making narrative: I believe her lesions are secondary to the drapes that were taped across her abdomen during surgery. I do not see sign of infection at this time. Wound will be cleansed and bacitracin applied. Discharge Plan Triage Chief Complaint: Wound ED Provider: Pari Kelly Dx/Rx/DC Orders Clinical Impression: Avulsion of skin Instructions: ED Skin Avulsion Prescriptions: No Action norethindrone acetate 5 MG tablet 5 mg PO DAILY RF: 0 baclofen 10 mg tablet 1 tab PO TID RF: 0 nabumetone 500 MG tablet 500 mg PO BID RF: 0 buspirone 10 MG tablet 10 mg PO BID RF: 0 clonidine HCl 0.1 mg Tablet 0.1 mg PO DAILY RF: 0 lisinopril 10 mg Tablet 10 mg PO DAILY RF: 0 Rexulti 1 mg Tablet 1 mg PO DAILY RF: 0 pantoprazole [Protonix] 20 mg Tablet,Delayed Release (Dr/Ec) 20 mg PO DAILY RF: 0 Trintellix 20 mg tablet 20 mg PO DAILY RF: 0 hydrocodone-acetaminophen [[place]] 5-325 mg Tablet 1 tab PO BID PRN (Reason: Pain) RF: 0 Farxiga 5 mg Tablet 5 mg PO DAILY RF: 0 Referrals: PARI BOWENS [Other] - 1 Week if not improving Disposition Disposition: Home, Self Care
[2021-09-03] MEDS: BACITRACIN 15 GM Tube 1 APPLIC TOPICAL (18:07)
== END 2021-09-03 18:12 | disposition home or self-care (01) ==
LOC: ED 18:03
PROVIDERS: Emergency Provider Emergency Medicine; Visit Provider Emergency Medicine
DX: S31.109A Unspecified open wound of abdominal wall, unspecified quadrant without penetration into peritoneal cavity, initial encounter (principal); F17.210 Nicotine dependence, cigarettes, uncomplicated; X58.XXXA Exposure to other specified factors, initial encounter
CPT/HCPCS: 99282

== ENCOUNTER 2021-09-09 09:00 | Outpatient (RCR) | payer MEDICAID, SELFPAY ==
--- NOTE | 2021-07-08 09:03 | HP.PTEVAL ---
Patient's Visit Information JEANNIE CADENA is a 36 year old F referred to Physical Therapy by KARISHMA Lynn with a diagnosis of LUMBAR DDD, PAIN & RADIC. FIBROMYALGIA. NECK PAIN.. Date of Evaluation: 07/08/21 Physical Therapist: Gabriela Merino, PT, Cert MDT - Visit Plan Frequency: 2-3x /Week Duration: 4-6 Weeks Plan: POSTURE CORRECTION/STRENGTHENING, INSTRUCTION IN APPROPRIATE BODY MECHANICS AND ACTIVITY MODIFICATIONS. HAJA UE ROM, STRETCHING AND STRENGTHENING. HEP INSTRUCTION. - Subjective Work/Leisure: UNEMPLOYEED SINCE APPROX 2011. Disability: NO. Present symptoms: BACK AND NECK PAIN. PATIENT REPORTS SHE HAS PAIN ALL OVER. NO NUMBNESS OR TINGLING. PAIN RAIDIATING IN UE'S AND LE'S. PATIENT IS REQUESTING TO FOCUS ONLY ON LOW BACK AND NOT NECK TODAY. Present since: SINCE 2009. Pain Scale: WORST 10/10, LEAST 7/10. Currently: 8/10. Commenced as a result of: TUBING AT [facility] ([facility]). Symptoms at onset: ARMS. Worse: PRETTY MUCH EVERYTHING. Better: NOTHING EXCEPT SCALDING HOT WATER. Disturbed sleep: YES. Previous history/Previous treatment: PAIN MGMT. NO SPINE SURGERY. NO CHELI'S. AQUATIC THERAPY X APPROX 3 TWICE HERE AT [facility] IN THE PAST. ONE CHIROPRACTIC VISIT - IT WAS NOT GOOD. PHYSICAL THERAPY [place] IN 2019 AND SHE REPORTS IT WENT GOOD. SHE REPORTS SHE ASKED PAIN MGMT TO GET HER BACK INTO PT. SHE REPORTS THE EX'S ARE TORTURE BUT IN THE LONG RUN THEY HELP. Coughing/sneezing/straining: POSITIVE. Gait: I NICHOLAS AND SOMETIMES I HAVE TO GO REALLY SLOW. WALKING QUICK DRAINS ENERGY. I HAVE TO GO SLOW OR MY LEGS FEEL LIKE THEY ARE GOING TO GO OUT SO I HAVE TO BE CAREFUL. Difficulty initiating urinatin: NO. Accidents: NO OTHERS. Unexplained weight loss: NO. Imaging: IMAGING HAS BEEN A FEW YEARS AGO. NEUROLOGIST DR. OCAMPO HAS DONE MRI'S OF NECK AND BACK IN THE PAST. PATIENT REPORTS JAMIA SIMON SAYS EVERYTHING LOOKS NORMAL. HAS BEEN REFERRED BY ONCOLOGIST/HEMOTOLOGIST FOR NECK AND HIGH WHITE CELL COUNT. NO CANCER. PMH: HIGH WHITE CELL COUNT. FIBROMYALGIA. VITAMIN D DEFICIENCY. HAJA UE AND LE SPASTICITY. OTHER: PATIENT REPORTS THAT SHE HAS TRIED AQUATIC THERAPY TWO TIMES IN THE PAST AND SHE IS ALWAYS WORSE AFTER. STATES SHE DOESN'T KNOW HER LIMITATIONS IN THE POOL AND THEN SHE FEELS LIKE SHE WAS BY A MAC TRUCK AFTER. OTHER: ALL OF THIS SUBJECTIVE INFORMATION WAS PULLED FROM JUL 2019 EVAL, GONE THROUGH THOROUGHLY WITH PATIENT AND UPDATED. PATIENT REPORTS SHE CONTINUED TO DO HER EX'S AFTER THE LAST EPISODE OF CARE WITH PT FOR AWHILE BUT THEN SHE STOPPED THEM AND REGRETTED IT BADLY. SHE REPORTS WHEN SHE TRIED TO START TO DO THEM AGAIN SHE FELT LIKE SHE WAS DOING THEM WRONG AND THEY WERE CAUSING MORE PAIN. - Objective Sitting/Standing Posture: POOR. Lordosis: NORMAL. Lateral shift: NO. Relevant shift: N/A. Active Correction of posture: NE. Other Observations: SLOW INDEP GAIT INTO PT WITHOUT ANY ASSISTIVE DEVICES OR LOSS OF BALANCE. INDEP SIT TO STAND WITHOUT UE ASSIST. Motor deficit: HAJA UE AND LE STRENGTH GROSSLY 5/5 WITH MMT'ING EXCEPT RIGHT HIP 4/5, LEFT HIP 4-/5 AND L KNEE 4/5. Sensory deficit: HAJA UE AND LE LIGHT TOUCH SENSATION INTACT. ROM deficit: TIGHT HAJA HIP FLEXORS AND GASTROC SOLEUS COMPLEX'S. Reflexes: NT. Dural Signs: HAJA LE'S NEGATIVE. Lumbar mvmt loss: flex - MOD. ext - MOD. R SG - MOD. L SG - MOD. PATIENT C/O INCREASED LOW BACK PAIN WITH LUMBAR ROM TESTING ALL PLANES. ALSO REPORTS INCREASED PAIN DOWN L LEG TO THE BACK OF HER THIGH WITH LUMBAR ROM TESTING. Core strength: POOR. POSTURUAL STRENGTH: PALPATION: TENDERNESS WITH LIGHT PALPATION OF THE THE [id number] REGIONS. POOR. TREATMENT: NEUROMUSCULAR REEDUCATION - RETRAINING OF MVMT AND POSTURE FOR SITTING, LYING AND STANDING ACTIVITIES. INITIATED HEP WITH SUPINE ISO ABDOMINALS AND SUPINE HAJA LE DURAL STRETCHING. HEP INSTRUCTIONS TO DO THESE TO EX'S 2X'S A DAY X 10 EA HOLDING ISO ABD'S 5 SEC. EA. PATIENT DEMO'D GOOD TECHNIQUE IN THE CLINIC TODAY AND TOLERATED THEM WELL BUT FATIGUES QUICKLY. PATIENT REPORTS HE BACK WAS REALLY TIGHT BEFORE SHE STARTED THE EX'S AND UPON DEPARTURE STATES IT ALREADY FEELS BETTER - MY BACK ISN'T THROBBING LIKE IT WAS. - Balance/Special Test Scores Oswestry Low Back Score: 36 - Goals Goal 1:: DECREASE C/O LBP Goal Time Frame: 4-6 Weeks Goal 2:: IMPROVE PERSONAL CARE, LIFTING, WALKING, SITTING, STANDING, SLEEPING, SOCIAL LIFE, TRAVEL AND HOMEMAKING FUNCTION. Goal Time Frame: 4-6 Weeks Goal 3:: INSTRUCT IN PROPHYLAXIS Goal Time Frame: 4-6 Weeks - Anticipated Interventions Patient/Client Instruction: Educate patient on: Condition, Plan of Care, Risk Factors For the Purpose of:: To improve self management Therapeutic Exercise to Include: Strength training, Body mechanics, Postural training, Flexibilty training, Neuromotor development, Dynamic Lumbar Stabilization Comment: PATIENT DOES NOT WANT TO DO AQUATIC THERAPY. For the Purpose of:: To decrease pain, To increase ROM, To improve muscle performance and motor function, To increase tolerance to activity/condition/position, To improve ability of physical actions for home/community/work/leisure Thank you for the opportunity to evaluate your patient. For Medicare and Medicare HMO plans, please review the plan of care and approve it. It will need to be FAXED BACK to us at [phone] for Medicare purposes. For Medicare only, by signing this I certify the plan of care. Please let me know if there are questions or concerns regarding this plan of care. Physician Signature: Date:
--- NOTE | 2021-09-09 09:24 | HP.PTDCSUM ---
It has been my pleasure to treat JEANNIE CADENA referred by KARISHMA Lynn, with the diagnosis of LUMBAR DDD, PAIN & RADIC. FIBROMYALGIA. NECK PAIN. for a total of 13 visit(s). Discharge Date: 09/09/21 Please see the following information for a summary of their discharge status. Subjective: PATIENT REPORTS SHE HAD SURGERY MON 09/01/21 AND EVERYTHING WENT WELL WITH SURGERY BUT HAD TO GO TO THE EMERGENCY ROOM 09/03/21 DUE TO ALLERGIC REACTION TO TAPE. BLISTERS ARE STILL HEALING. STRESS TEST PENDING FOR HEART NEXT WEDNESDAY. REPORTS SHE HAS BEEN ABLE TO DO SOME OF HER HOME EX PROGRAM BUT LIMITED SITTING AND STANDING DUE TO ABDOMINAL BLISTERS. PATIENT REPORTS SHE WILL RESUME ALL EX'S WHEN ABLE BECAUSE THEY HELP HER PAIN THAT SHE CAME HERE FOR. LOW BACK Pain Intensity (Out of 10): 4 LEGS Pain Intensity (Out of 10): 7 HEADACHE Pain Intensity (Out of 10): 0 % Improvement: 75 Objective/Function: PATIENT WAS SEEN TODAY FOR RE-ASSESSMENT OF PROGRESS TOWARD THE SET PT GOALS AND THE NEED FOR FURTHER PHYSICAL THERAPY VS READINESS FOR DISCHARGE. PATIENT IS INDEP WITH A HEP AND APPROPRIATE FOR DISCHARGE AT THIS TIME. PATIENT IS AGREEABLE TO DISCHARGE. SHE DEMO'S INCRASED LUMBAR ROM AND IMPROVED LE STRENGTH AND REPORTS DECREASED PAIN. UPON EXAM TODAY (PATIENT AGREEABLE TO EXAM AND INSTRUCTED TO STOP ANY MOTIONS THAT MIGHT ADVERSLY AFFECT HER ABDOMINAL HEALING): STRENGTH: HAJA LE'S 5/5. LUMBAR MVMT LOSS: FLEX - MIN, EXT - MOD, HAJA SG - MIN. PATIENT DENIES INCREASED PAIN WITH LUMBAR ROM TESTING AND ROM HAS IMPROVED SINCE INITIAL EVAL. CORE STRENGTH: NT. PATIENT TOLERATED EXAM WELL WITHOUT C/O INCRASED PAIN. Goal 1:: DECREASE C/O LBP Goal Progress: Goal Met Goal 2:: IMPROVE PERSONAL CARE, LIFTING, WALKING, SITTING, STANDING, SLEEPING, SOCIAL LIFE, TRAVEL AND HOMEMAKING FUNCTION. Goal Progress: Goal Met Goal 3:: INSTRUCT IN PROPHYLAXIS Goal Progress: Goal Met Plan: D/C TO INDEP EX. PATIENT AGREEABLE. If there are questions or concerns regarding this patient's physical therapy, please feel free to call me at [phone]. Thank you for the referral of this patient. Sincerely, Gabriela Merino, PT, Cert MDT Balance/Gait/Functional tests - Balance/Special Test Scores Oswestry Low Back Score: 28
== END 2021-09-09 10:15 | disposition home or self-care (01) ==
LOC: PT 09:00
PROVIDERS: Referring Provider Nurse Practitioner Family; Visit Provider Nurse Practitioner Family
DX: M51.17 Intervertebral disc disorders with radiculopathy, lumbosacral region (principal); M79.7 Fibromyalgia; M54.2 Cervicalgia
CPT/HCPCS: 97110; 97112; 97162; 97164; 97530

== ENCOUNTER 2021-10-11 21:58 | Emergency (ER) | payer MEDICAID, SELFPAY ==
[2021-10-11 21:59] VITALS: BP 163/101; PULSE 125; RESP 19; TEMP 36.2; O2SAT 98; BMI 54.8
--- NOTE | 2021-10-11 22:16 | CT_ITS ---
EXAM: CT ABDOMEN AND PELVIS WITH INTRAVENOUS CONTRAST CLINICAL INDICATION: pelvic and LLQ pain TECHNIQUE: Helically acquired images were obtained of the abdomen and pelvis with intravenous contrast. This CT exam was performed using one or more of the following dose reduction techniques: automated exposure control, adjustment of the mA and/or kV according to patient size, and/or use of iterative reconstruction technique. This report was created using [employer] report generation technology. CONTRAST: IV 100mL Isovue-300 RADIATION DOSE: CTDIvol = 27.05 mGy, DLP = 1325.79 mGy-cm. COMPARISON: 02/12/2020 FINDINGS: LOWER THORAX: Unremarkable. Lung bases are clear. No cardiomegaly. No significant pericardial effusion. ABDOMEN: LIVER: There is diffuse low-attenuation of the liver. GALLBLADDER AND BILE DUCTS: Cholecystectomy. No intra- or extrahepatic biliary ductal dilation. PANCREAS: Unremarkable. No focal cystic or solid mass. SPLEEN: Unremarkable. Normal size without focal cystic or solid mass. ADRENALS: Unremarkable. No nodules. KIDNEYS AND URETERS: Unremarkable. Normal renal size and position. No hydronephrosis. STOMACH AND BOWEL: Duodenal diverticulum with debris within it measuring 2.5 cm involving the second portion of the duodenum. No stomach or bowel distention. No focal inflammatory change. PELVIS: APPENDIX: Appendectomy. BLADDER: Unremarkable. REPRODUCTIVE: IUD in the uterus. ABDOMEN and PELVIS: INTRAPERITONEAL SPACE: Unremarkable. No ascites or other fluid collection. No free air. BONES/JOINTS: Unremarkable. No suspicious lytic or blastic abnormality. SOFT TISSUES: Unremarkable. No discrete abdominal or pelvic wall hernia. VASCULATURE: Unremarkable. Abdominal aorta is non-dilated. LYMPH NODES: Unremarkable. No enlarged lymph nodes. CT/Abdomen/Pelvis W IV Cont ONLY IMPRESSION: 1. Fatty liver. 2. Cholecystectomy. 3. No acute intra-abdominal abnormality. 4. Duodenal diverticulum with debris within it measuring 2.5 cm involving the second portion of the duodenum. Electronically Signed: Arnie Cheatham MD at 23:55 EDT ,
--- NOTE | 2021-10-11 22:17 | ED.VIS.GI ---
HPI HPI - GI History of Present Illness Chief Complaint: Abd Pain Informant: patient Abdominal Pain/Flank Pain Onset: Weeks (3) Context: Gradual Onset Timing: Intermittent and Lasts (Anywhere from 5-10-second to an hour or 2 today) Quality: Aching, Sharp and Stabbing Location: - (Suprapubic) Current Severity: Severe Maximum Severity: Severe Worsened by: Nothing Relieved by: Nothing (Has tried Tylenol and ibuprofen today, no effect) Nausea/Vomiting/Emesis GI Symptom: Positive for Nausea; Negative for Vomiting Diarrhea/Melena/Hematochezia GI Symptom: Negative for Diarrhea, Melena and Hematochezia Associated Symptoms Associated Symptoms: Negative for Dysuria, Frequency, Hematuria and Urgency Narrative Narrative: Patient had menorrhagia and had a D&C with Mirena placement at the beginning of August. She had no issues for several weeks and then started having this pain that has worsened. She has not been seen in follow-up yet, but has an appointment for Wednesday which is the day after tomorrow. Pain is worse all day today. She states sometimes it radiates into her vagina but she has no other vaginal symptoms including discharge or bleeding. [facility] Medical History (Updated 10/12/21 @ 00:[address] Richard Heart MD) Anxiety Balance problem Chronic neck and back pain Diabetes Fatigue Ulnar nerve entrapment Home Medications norethindrone acetate 5 mg PO DAILY 09/29/19 [History Last Taken 09/29/19] baclofen 1 tab PO TID 11/17/19 [History Last Taken Unknown] nabumetone 500 mg PO BID 11/17/19 [History Last Taken Unknown] buspirone 10 mg PO BID 02/12/20 [History Last Taken Unknown] brexpiprazole [Rexulti] 1 mg PO DAILY 02/21/21 [History Last Taken Unknown] clonidine HCl 0.1 mg PO DAILY 02/21/21 [History Last Taken Unknown] lisinopril 10 mg PO DAILY 02/21/21 [History Last Taken Unknown] pantoprazole [Protonix] 20 mg PO DAILY 03/02/21 [History Last Taken Unknown] vortioxetine [Trintellix] 20 mg PO DAILY 03/02/21 [History Last Taken Unknown] dapagliflozin [Farxiga] 5 mg PO DAILY 07/23/21 [History Last Taken Unknown] hydrocodone-acetaminophen [[place]] 1 tab PO BID PRN 07/23/21 [History Last Taken Unknown] hydrocodone-acetaminophen 1 tab PO Q4H PRN PRN 2 Days #8 tablet 10/12/21 [Rx Last Taken Unknown] Allergy/AdvReac Type Severity Reaction Status Date / Time amitriptyline AdvReac NEEDS Verified 10/11/21 21:59 FOLLOW-UP duloxetine [From Cymbalta] AdvReac NEEDS Verified 10/11/21 21:59 FOLLOW-UP mirtazapine [From Remeron] AdvReac NEEDS Verified 10/11/21 21:59 FOLLOW-UP Surgical History History of appendectomy History of tonsillectomy Hx of cholecystectomy Social History Smoking Status: Current every day smoker tobacco type: cigarettes ROS ROS ED Constitutional Constitutional ED: Denies chills or fever(s) Eyes Eyes: Denies change in vision or diplopia ENT ENT ED: Denies rhinorrhea or sore throat Cardiovascular Cardiovascular: Denies chest pain or palpitations Respiratory/Chest Respiratory/Chest: Denies cough or dyspnea Gastrointestinal Gastrointestinal: Reports as per HPI, abdominal pain and nausea; Denies diarrhea or vomiting Genitourinary Genitourinary ED: Denies dysuria or hematuria Musculoskeletal Musculoskeletal: Denies back pain or neck pain Integumentary Denies abscess or rash Neurologic Neurologic: Denies headache(s), paresthesias or weakness Psychiatric Psychiatric: Denies anxiety or suicidal thoughts EXAM Physical Exam Const Vital Signs: 10/11/21 21:59 Temperature 97.2 F L Temperature Source Temporal Pulse Rate 125 H Respiratory Rate 19 H Blood Pressure 163/101 H Blood Pressure Mean 121 Pulse Ox 98 Oxygen Delivery Method Room Air Positive well nourished and well developed General Appearance ED: well developed and NAD Nutritional Appearance: morbidly obese HEENT Reports moist mucous membranes normocephalic and atraumatic Eyes PERRL and EOMs intact bilaterally Neck full ROM and supple Resp normal respiratory effort and clear to auscultation bilaterally Cardio regular rate, regular rhythm and no murmurs GI non-distended GI Narrative: Tender suprapubic/pelvis as well as left lower quadrant, no other areas of tenderness. No guarding or rebound tenderness. Morbid obesity limits the exam. Normal inspection otherwise. Auscultation: normoactive bowel sounds Palpation: soft Back/Spine no CVA tenderness General Back: other FROM Extremity normal to inspection General Extremety ED: Negative for edema, pulses abnormal or tenderness General Extremity: Negative for edema or pulses abnormal Neuro oriented x3, CN's II-XII intact bilaterally and no sensory deficits noted Sensorium / Orientation: awake and alert Motor Exam: strength 5/5 throughout Skin no rashes or lesions noted and no wounds MDM MDM MDM Narrative Medical decision making narrative: is negative, labs show a leukocytosis however she has had a leukocytosis around the same, 15, every time she has had a CBC, this may be normal for her. There is no leftward shift. Otherwise labs unremarkable. Urine showed some white blood cells this was sent for culture but she does not have any urinary symptoms to suggest a urinary infection. I did a CT of her abdomen/pelvis, it showed the IUD, no evidence of a perforation or other acute abnormality or diverticulitis. I do not think she has torsion. There is no guarding or rebound, I do not think a pelvic exam will be helpful right now because of her obesity. There were no evidence of enlarged ovaries on the CT scan which is often seen with torsion. At this time I think she is stable to follow-up with her CR[facility], this pain has been going on for several weeks and she has an appointment in 2 days. Will be prescribed a short supply of analgesics to get her through, after a dose of analgesic here she is feeling much better. Lab Data Attestation: I reviewed the patient's lab results. Labs: Laboratory Results - last 24 hr 10/11/21 10/11/21 10/11/21 22:25 22:25 22:25 WBC 15.4 H RBC 4.78 Hgb 14.3 Hct 42.0 MCV 87.9 MCH 29.9 MCHC 34.0 RDW Std Deviation 42.2 RDW Coeff of Domingo 13.0 Plt Count 359 MPV 9.4 Immature Gran % (Auto) SPECIALIST FIELD ENGINEER Neut % (Auto) SPECIALIST FIELD ENGINEER Lymph % (Auto) SPECIALIST FIELD ENGINEER [place] % (Auto) SPECIALIST FIELD ENGINEER Eos % (Auto) SPECIALIST FIELD ENGINEER Baso % (Auto) SPECIALIST FIELD ENGINEER Absolute Neuts (auto) 9.6 H Absolute Lymphs (auto) 4.77 H Total Counted 100 Neutrophils % (Manual) 62 Lymphocytes % (Manual) 31 Monocytes % (Manual) 3 Eosinophils % (Manual) 3 Metamyelocytes % 1 Nucleated RBC % SPECIALIST FIELD ENGINEER Differential Comment SCANNED Platelet Estimate ADEQUATE RBC Morphology NORM C+C Sodium 136 Potassium 4.0 Chloride 107 Carbon Dioxide 23.0 Anion Gap 6 BUN 11 Creatinine 0.58 Estim Creat Clear Calc 132.91 Est GFR (MDRD) Af Amer 153 Est GFR (MDRD) Non-Af 126 BUN/Creatinine Ratio 19.0 Glucose 253 H Calcium 8.6 Serum , Qual NEGATIVE Urine Color Urine Clarity Urine pH Ur Specific [place] Urine Protein Urine Glucose (UA) Urine Ketones Urine Occult Blood Urine Nitrite Urine Bilirubin Urine Urobilinogen Ur Leukocyte Esterase Urine RBC Urine WBC Ur Squamous Epith Cells Urine Bacteria Urine Mucus 10/11/21 22:35 WBC RBC Hgb Hct MCV MCH MCHC RDW Std Deviation RDW Coeff of [place] Plt Count MPV Immature Gran % (Auto) Neut % (Auto) Lymph % (Auto) [place] % (Auto) Eos % (Auto) Baso % (Auto) Absolute Neuts (auto) Absolute Lymphs (auto) Total Counted Neutrophils % (Manual) Lymphocytes % (Manual) Monocytes % (Manual) Eosinophils % (Manual) Metamyelocytes % Nucleated RBC % Differential Comment Platelet Estimate RBC Morphology Sodium Potassium Chloride Carbon Dioxide Anion Gap BUN Creatinine Estim Creat Clear Calc Est GFR (MDRD) Af Amer Est GFR (MDRD) Non-Af BUN/Creatinine Ratio Glucose Calcium Serum , Qual Urine Color Yellow Urine Clarity Cloudy Urine pH 5.0 Ur Specific Orange 1.030 Urine Protein 15 H Urine Glucose (UA) 1000 H Urine Ketones 5 H Urine Occult Blood 50 H Urine Nitrite Negative Urine Bilirubin Negative Urine Urobilinogen 1 H Ur Leukocyte Esterase 25 H Urine RBC 0 SEEN Urine WBC 10-25 SEEN Ur Squamous Epith Cells 0-5 SEEN Urine Bacteria 0 SEEN Urine Mucus 0 SEEN Radiography Diagnostic Testing: Clinical Impression(s) from Imaging Studies Abdomen/Pelvis CT 10/11/21 22:16 IMPRESSION: 1. Fatty liver. 2. Cholecystectomy. 3. No acute intra-abdominal abnormality. 4. Duodenal diverticulum with debris within it measuring 2.5 cm involving the second portion of the duodenum. Electronically Signed: Arnie Cheatham MD at 23:55 EDT , Discharge Plan Triage Chief Complaint: Abd Pain ED Provider: Richard Heart Dx/Rx/DC Orders Clinical Impression: Acute pain in female pelvis Instructions: IUD, ED Pelvic Pain, Unknown Cause Prescriptions: New hydrocodone-acetaminophen [hydrocodone-acetaminophen] 1 TABLET tablet 1 tab PO Q4H PRN PRN (Reason: Pain) 2 Days Qty: 8 RF: 0 No Action norethindrone acetate 5 MG tablet 5 mg PO DAILY RF: 0 baclofen 10 mg tablet 1 tab PO TID RF: 0 nabumetone 500 MG tablet 500 mg PO BID RF: 0 buspirone 10 MG tablet 10 mg PO BID RF: 0 clonidine HCl 0.1 mg Tablet 0.1 mg PO DAILY RF: 0 lisinopril 10 mg Tablet 10 mg PO DAILY RF: 0 Rexulti 1 mg Tablet 1 mg PO DAILY RF: 0 pantoprazole [Protonix] 20 mg Tablet,Delayed Release (Dr/Ec) 20 mg PO DAILY RF: 0 Trintellix 20 mg tablet 20 mg PO DAILY RF: 0 hydrocodone-acetaminophen [[place]] 5-325 mg Tablet 1 tab PO BID PRN (Reason: Pain) RF: 0 Farxiga 5 mg Tablet 5 mg PO DAILY RF: 0 Referrals: CYRUS BOWENS [Other] mechanical test engineer, your [Other] - Keep [facility] appointment Disposition Disposition: Home, Self Care
[2021-10-11] MEDS: 0.9% Normal Saline 1,000 ML 1000 ML IV (22:32)
[2021-10-11 22:34] LABS: Hemoglobin 14.3 g/dL (12.0-15.0); Mean Corpuscular Hgb 29.9 pg (27.0-32.0); Mean Corpuscular Volume 87.9 fL (81-99); Mean Platelet Vol. 9.4 fl (6.2-12.0); POSITIVE DIFFERENTIAL YES; POSITIVE MORPHOLOGY YES; Platelet Count 359 K/mm3 (150-450); RBC Distribution Width SD 42.2 fl (35.1-43.9); Red Blood Count 4.78 M/mm3 (4.2-5.4); White Blood Count 15.4 K/mm3 (4.4-11.0)
[2021-10-11] MEDS: Ketorolac 15 MG/ML Vial IV (22:34)
[2021-10-11] MEDS: Ondansetron 4 MG/2 ML Vial IV (22:34)
[2021-10-11] MEDS: Morphine 4 MG/ML Syringe IV (22:34)
[2021-10-11 22:41] LABS: Bacteria 0 SEEN /hpf (None Seen); Color, Urine Yellow (Yellow); Glucose, Dipstick 1000 mg/dl (Normal); Ketone-Dipstick 5 mg/dl (Negative); Leukocyte Esterase-Dipstick 25 /ul (Negative); Mucous, Urine 0 SEEN /hpf (<or=2+); Nitrite-Dipstick Negative (Negative); Occult Blood-Urine 50 /ul (Negative); Protein-Dipstick 15 mg/dl (Negative); Red Blood Cells-Urine 0 SEEN /hpf (0-5); Urine Bilirubin Dipstick Negative (Negative); Urine Clarity Cloudy (Clear); Urine Urobilinogen 1 mg/dl (Normal)
[2021-10-11 22:46] LABS: Anion Gap 6 (5-15); BUN 11 mg/dL (7-18); Calcium,Total 8.6 mg/dL (8.5-10.1); Chloride 107 mmol/L (98-107); Creatinine, Serum 0.58 mg/dL (0.55-1.02); EST Glomerular Filtration Rate 126 mL/min (>60); Est Glom Filt Rate - Afr Amer 153 mL/min (>60); Estimated Creatinine Clearance 132.91 ml/min; Glucose 253 mg/dL (74-106); Sodium Level 136 mmol/L (136-145)
[2021-10-11 22:47] LABS: Internal QC Validated? YES +Cl - CLEAR BKGD; Pregnancy, Serum, hCG Quali. NEGATIVE Negative
[2021-10-11 22:55] LABS: Squamous Epithelial Cells - UA 0-5 SEEN /hpf (5-10); White Blood Cells 10-25 SEEN /hpf (0-5)
[2021-10-11 22:59] LABS: Differential Indicated MANUAL DIFF
[2021-10-11 23:00] LABS: Differential Comment SCANNED; Eosinophil 3 % (0-5); Lymphocyte 31 % (19-41); Metamyelocyte 1 % (0-1); Monocyte 3 % (0-10); Neutrophil-Segmented 62 % (47-70); Platelet Estimate ADEQUATE (ADEQ); Red Cell Morphology NORM C+C NORMAL (NORM C&C); Total Cells Counted 100 (MANUAL DIFF)
[2021-10-11 23:06] LABS: Absolute Lymphocyte Count 4.77 X10^3/uL (0.83-4.51); Absolute Neutrophil Count 9.6 X10^3/uL (2.0-7.7); Lymphocyte # 4.77 X10^3/ul (0.83-4.51); Neutrophil # 9.55 X10^3/uL (2.7-7.7)
[2021-10-12 00:16] VITALS: BP 144/87; PULSE 87; RESP 15; O2SAT 99
== END 2021-10-12 00:50 | disposition home or self-care (01) ==
PROVIDERS: Emergency Provider Emergency Medicine; Visit Provider Emergency Medicine
DX: R10.2 Pelvic and perineal pain (principal); E66.01 Morbid (severe) obesity due to excess calories; F17.210 Nicotine dependence, cigarettes, uncomplicated
CPT/HCPCS: 74177; 80048; 81001; 84703; 85025; 87086; 87088; 96361; 96374; 96375; 99283; J7030; Q9967; A4216; J2405

== ENCOUNTER 2021-10-16 12:45 | Emergency (ER) | payer MEDICAID, SELFPAY ==
[2021-10-16 12:46] VITALS: BP 173/111; PULSE 123; RESP 18; TEMP 36.5; O2SAT 100; BMI 54.8
--- NOTE | 2021-10-16 13:37 | EDS_ITS ---
HPI <KARISHMA Benitez - Last Filed: 10/16/21 15:39> HPI - Female History of Present Illness Chief Complaint: Female C/O Narrative Narrative: 36-year-old female with history of chronic neck and back pain, diabetes, morbid obesity presents to the emergency department with 3 to 4 weeks of generalized pelvic pain worse in the left side. Patient was seen here on the 16, 17 of this month. Patient did receive a CT scan her last visit, this showed no acute process. Patient is following up with [facility], patient has a pelvic ultrasound ordered for tomorrow however she states that the pain is so severe and she cannot wait. Patient is here for pain control. Patient denies any vaginal drainage, patient was negative for a few days ago. Patient states that she was given Alleman here however she is out. Denies any fevers or chills. Does state have some nausea PFS <KARISHMA Benitez - Last Filed: 10/16/21 15:39> [facility] Medical History (Updated 10/20/21 @ 00:01 by Ortega Garcia) Anxiety Balance problem Chronic neck and back pain Diabetes Fatigue Ulnar nerve entrapment Home Medications norethindrone acetate 5 mg PO DAILY 09/29/19 [History Last Taken 09/29/19] baclofen 1 tab PO TID 11/17/19 [History Last Taken Unknown] nabumetone 500 mg PO BID 11/17/19 [History Last Taken Unknown] buspirone 10 mg PO BID 02/12/20 [History Last Taken Unknown] brexpiprazole [Rexulti] 1 mg PO DAILY 02/21/21 [History Last Taken Unknown] clonidine HCl 0.1 mg PO DAILY 02/21/21 [History Last Taken Unknown] lisinopril 10 mg PO DAILY 02/21/21 [History Last Taken Unknown] pantoprazole [Protonix] 20 mg PO DAILY 03/02/21 [History Last Taken Unknown] vortioxetine [Trintellix] 20 mg PO DAILY 03/02/21 [History Last Taken Unknown] dapagliflozin [Farxiga] 5 mg PO DAILY 07/23/21 [History Last Taken Unknown] hydrocodone-acetaminophen [Alleman] 1 tab PO BID PRN 07/23/21 [History Last Taken Unknown] hydrocodone-acetaminophen 1 tab PO Q4H PRN PRN 2 Days #8 tablet 10/12/21 [Rx Last Taken Unknown] Allergy/AdvReac Type Severity Reaction Status Date / Time amitriptyline AdvReac NEEDS Verified 10/16/21 12:49 FOLLOW-UP duloxetine [From Cymbalta] AdvReac NEEDS Verified 10/16/21 12:49 FOLLOW-UP mirtazapine [From Remeron] AdvReac NEEDS Verified 10/16/21 12:49 FOLLOW-UP Surgical History History of appendectomy History of tonsillectomy Hx of cholecystectomy Social History Smoking Status: Current every day smoker tobacco type: cigarettes ROS <KARISHMA Benitez - Last Filed: 10/16/21 15:39> ROS ED ROS Narrative Constitutional: Negative for fever, chills, weight loss, weakness Eyes: Negative for vision loss, vision change, double vision ENT: Negative for any sore throat, ear pain, congestion Cardiovascular: Negative for any chest pain, tightness, palpitations, racing heartbeat Respiratory: Negative for any cough, sputum production, hemoptysis, shortness of breath, shortness of breath on exertion, orthopnea Gastrointestinal: Negative for any vomiting, diarrhea, constipation, blood in stool, blood in vomit. Positive for left lower abdominal pain, pelvic pain, nausea : Negative for any urinary frequency, incontinence, dysuria, retention, blood in urine Muscle skeletal: Negative for any muscle joint pain, stiffness, myalgias, arthralgias, neck pain, back pain Neurological: Negative for any headache, dizziness, syncope, numbness or tingling Skin: Negative for any rashes, lumps, itching, abrasions, lacerations Psychiatric: Negative for any depression, anxiety, stress, suicidal ideation, homicidal ideation Hematologic: Negative for any easy bruising, excessive bruising, easy bleeding Allergies: Negative for any eczema, hives, rash EXAM <KARISHMA Benitez - Last Filed: 10/16/21 15:39> Physical Exam Narrative Exam Narrative: Vital signs reviewed. Patient is rocking back and forth, patient is tearful on initial exam. HEET: Head normocephalic atraumatic, TMs clear bilaterally. Posterior pharynx is clear, moist mucous membranes. Nares clear bilaterally. Neck: Supple with no lymphadenopathy or tenderness. No signs of meningismus, negative jolt sign. Cardiac: Regular rate and rhythm no murmurs gallops or rubs, equal peripheral pulses bilaterally. Respiratory: Lungs clear to auscultation bilaterally. No chest tenderness. Abdomen: Soft, nontender, nondistended. No abdominal bruit or pulsatile masses. No hepatosplenomegaly. Abdomen exam was difficult secondary to the patient's body habitus, patient does have pain to the left lower quadrant/pelvic area, this showed no acute pain on palpation. Extremities: No peripheral edema, no signs of gross trauma or deformity. Active full range of motion of all extremities. Neuro: Cranial nerves II through XII intact, no focal neurological deficits. Skin: Clean dry and intact with no rash, purpura, petechiae, vesicles or pustules. Backslash flank: No CVA tenderness, no midline spinal tenderness, no deformity. Psych: Normal mood and affect. No SI, HI or acute psychosis. Const Vital Signs: 10/16/21 12:46 Temperature 97.7 F L Temperature Source Temporal Pulse Rate 123 H Respiratory Rate 18 Blood Pressure 173/111 H Blood Pressure Mean 131 Pulse Ox 100 Oxygen Delivery Method Room Air <Dr. Silva Gray DO - Last Filed: 10/21/21 03:16> Physical Exam Const Vital Signs: 10/16/21 12:46 Temperature 97.7 F L Temperature Source Temporal Pulse Rate 123 H Respiratory Rate 18 Blood Pressure 173/111 H Blood Pressure Mean 131 Pulse Ox 100 Oxygen Delivery Method Room Air [facility] <KARISHMA Benitez - Last Filed: 10/16/21 15:39> [facility] Narrative Medical decision making narrative: Patient appears to be in mild distress secondary to pelvic pain, patient presents the emergency department with 3 to 4 weeks of generalized pelvic pain. Patient did receive IV fluids, IV morphine, this did decrease the patient's pain. Patient did receive a CBC, this did show leukocytosis however this leukocytosis is chronic, it seems that her white blood count is always around 15. Patient's glucose was 213, the remainder of the chemistries were unremarkable. Patient's urinalysis shows no infection. Patient is not . Patient did receive a pelvic ultrasound, this did show that the IUCD visualization is in position, and an unremarkable pelvic ultrasound. At this time, there is no pathology to explain the patient's sy mptoms. Patient did receive a CT scan of the abdomen pelvis that was unremarkable, today the patient had a pelvic ultrasound, this was unremarkable. Patient needs to follow-up outpatient, she has an appointment next week. Patient will continue take her pain medicine from pain management, she does have hydrocodone. At this time, patient is stable for discharge instructed return for worsening symptoms. Lab Data Labs: Laboratory Results - last 24 hr 10/16/21 10/16/21 10/16/21 14:00 14:00 14:00 WBC 15.5 H RBC 5.02 Hgb 15.0 Hct 45.3 MCV 90.2 MCH 29.9 MCHC 33.1 RDW Std Deviation 42.4 RDW Coeff of Domingo 13.1 Plt Count 388 MPV 9.1 Immature Gran % (Auto) 0.500 Neut % (Auto) 63.4 Lymph % (Auto) 31.2 [place] % (Auto) 4.3 Eos % (Auto) 0.0 Baso % (Auto) 0.6 Absolute Neuts (auto) 9.8 H Absolute Lymphs (auto) 4.82 H Nucleated RBC % 0 Platelet Estimate ADEQUATE Polychromasia 1+ Sodium 137 Potassium 3.8 Chloride 104 Carbon Dioxide 28.0 Anion Gap 5 BUN 10 Creatinine 0.71 Estim Creat Clear Calc 108.57 Est GFR (MDRD) Af Amer 121 Est GFR (MDRD) Non-Af 100 BUN/Creatinine Ratio 14.1 Glucose 213 H Calcium 9.4 Urine Color Yellow Urine Clarity Clear Urine pH 6.0 Ur Specific [place] 1.015 Urine Protein Negative Urine Glucose (UA) Normal Urine Ketones Negative Urine Occult Blood 250 H Urine Nitrite Negative Urine Bilirubin Negative Urine Urobilinogen Normal Ur Leukocyte Esterase 25 H Urine RBC 5-10 SEEN Urine WBC 5-10 SEEN Ur Squamous Epith Cells 0-5 SEEN Urine Bacteria 1+ Urine Mucus 0 SEEN Radiography Diagnostic Testing: Clinical Impression(s) from Imaging Studies Transvaginal US 10/16/21 13:38 IMPRESSION: IUCD visualized in position. Unremarkable pelvic ultrasound. Electronically Signed: Aubrey Huston MD at 15:09 EDT , <Dr. Silva Gray, DO - Last Filed: 10/21/21 03:16> [facility] MDM Narrative Medical decision making narrative: I have personally performed a face to face assessment of the patient and have reviewed the ALISSA Note. I performed a substantive portion of the visit including all aspects of the following. My singh findings include: History is evaluated for continued pelvic pain. She is seeing her [facility] for this, had a CT of abdomen pelvis, had a pelvic exam but the cause is unclear. She does have an IUD in place for the last month. Physical exam is large unremarkable. She is tachycardic and hypertensive upon arrival. Patient is given dose of pain medication and IV fluids with improvement of her symptoms. Pelvic ultrasound obtained as well as baseline labs. Patient does have leukocytosis with no obvious source of infection. There is no shift. Patient is a chronic leukocytosis and is at her baseline. BMP is unremarkable. Urinalysis is most consistent with contamination. Urine culture sent. Patient counseled exact cause her symptoms is not clear. Given that is been going on for at least a month and she has had negative CT as well as ultrasound I do not think there is any acute surgical pathology/acute infectious pathology going on at this time. Do think she is safe for continued outpatient follow-up. She is counseled return precautions. She verbalizes agreement understanding this plan. Lab Data Labs: Laboratory Results - last 24 hr 10/16/21 10/16/21 10/16/21 14:00 14:00 14:00 WBC 15.5 H RBC 5.02 Hgb 15.0 Hct 45.3 MCV 90.2 MCH 29.9 MCHC 33.1 RDW Std Deviation 42.4 RDW Coeff of Domingo 13.1 Plt Count 388 MPV 9.1 Immature Gran % (Auto) 0.500 Neut % (Auto) 63.4 Lymph % (Auto) 31.2 [place] % (Auto) 4.3 Eos % (Auto) 0.0 Baso % (Auto) 0.6 Absolute Neuts (auto) 9.8 H Absolute Lymphs (auto) 4.82 H Nucleated RBC % 0 Platelet Estimate ADEQUATE Polychromasia 1+ Sodium 137 Potassium 3.8 Chloride 104 Carbon Dioxide 28.0 Anion Gap 5 BUN 10 Creatinine 0.71 Estim Creat Clear Calc 108.57 Est GFR (MDRD) Af Amer 121 Est GFR (MDRD) Non-Af 100 BUN/Creatinine Ratio 14.1 Glucose 213 H Calcium 9.4 Urine Color Yellow Urine Clarity Clear Urine pH 6.0 Ur Specific [place] 1.015 Urine Protein Negative Urine Glucose (UA) Normal Urine Ketones Negative Urine Occult Blood 250 H Urine Nitrite Negative Urine Bilirubin Negative Urine Urobilinogen Normal Ur Leukocyte Esterase 25 H Urine RBC 5-10 SEEN Urine WBC 5-10 SEEN Ur Squamous Epith Cells 0-5 SEEN Urine Bacteria 1+ Urine Mucus 0 SEEN Radiography Diagnostic Testing: Clinical Impression(s) from Imaging Studies Transvaginal US 10/16/21 13:38 IMPRESSION: IUCD visualized in position. Unremarkable pelvic ultrasound. Electronically Signed: Aubrey Huston MD at 15:09 EDT Reading Location ID and State: [facility] / [place] Tel , Service support , Discharge Plan Triage Chief Complaint: Female C/O Other Complaint: Abd Pain ED Midlevel Provider: Christiano Carty ED Provider: Silva Gray Dx/Rx/DC Orders Clinical Impression: Pelvic pain Instructions: Abdominal Pain, ED Pelvic Pain, Unknown Cause Prescriptions: No Action norethindrone acetate 5 MG tablet 5 mg PO DAILY RF: 0 baclofen 10 mg tablet 1 tab PO TID RF: 0 nabumetone 500 MG tablet 500 mg PO BID RF: 0 buspirone 10 MG tablet 10 mg PO BID RF: 0 clonidine HCl 0.1 mg Tablet 0.1 mg PO DAILY RF: 0 lisinopril 10 mg Tablet 10 mg PO DAILY RF: 0 Rexulti 1 mg Tablet 1 mg PO DAILY RF: 0 pantoprazole [Protonix] 20 mg Tablet,Delayed Release (Dr/Ec) 20 mg PO DAILY RF: 0 Trintellix 20 mg tablet 20 mg PO DAILY RF: 0 hydrocodone-acetaminophen [Alleman] 5-325 mg Tablet 1 tab PO BID PRN (Reason: Pain) RF: 0 Farxiga 5 mg Tablet 5 mg PO DAILY RF: 0 hydrocodone-acetaminophen [hydrocodone-acetaminophen] 1 TABLET tablet 1 tab PO Q4H PRN PRN (Reason: Pain) 2 Days Qty: 8 RF: 0 Referrals: Pari Noyola [Other] Activity Restrictions/Additional Instructions: Please follow-up with your [facility], take the medications prescribed by pain management Print Language: Bahraini Disposition Disposition: Home, Self Care Discharge Date/Time: 10/16/21 15:47
--- NOTE | 2021-10-16 13:38 | US_ITS ---
INDICATION: Pelvic pain secondary to IUD EXAMINATION: Ultrasound US Transvaginal Non-OB TECHNIQUE: Transvaginal (for optimal evaluation of the adnexa) pelvic ultrasound was performed. Grayscale, spectral waveform, and color flow Doppler evaluation of the adnexa. COMPARISON: 10/11/2021. FINDINGS: UTERUS: Anteverted. The uterus measures 6.3 x 4.0 x 3.0 cm. There is no uterine mass. The endometrial stripe measures 0.5 cm in AP diameter which is within normal limits. Linear hyperechoic echogenicity visualized in the upper endometrial canal consistent with the intrauterine contraceptive device that was visualized in the prior scan. RIGHT OVARY: The right ovary measures 2.9 x 1.6 x 1.5 cm. Non-enlarged, normal echogenicity. There is normal arterial inflow and venous outflow present in the right ovary. LEFT OVARY: The left ovary measures 1.8 x 1.4 x 1.0 cm. Non-enlarged, normal echogenicity. There is normal arterial inflow and venous outflow present in the left ovary. FREE FLUID: None. US/Transvaginal Non- IMPRESSION: IUCD visualized in position. Unremarkable pelvic ultrasound. Electronically Signed: Aubrey Huston MD at 15:09 EDT ,
[2021-10-16] MEDS: Morphine 4 MG/ML Syringe IV (14:02)
[2021-10-16] MEDS: Ondansetron 4 MG/2 ML Vial IV (14:02)
[2021-10-16] MEDS: 0.9% Normal Saline 1,000 ML 1000 ML IV (14:02)
[2021-10-16 14:03] LABS: Mucous, Urine 0 SEEN /hpf (<or=2+)
[2021-10-16 14:05] LABS: Absolute Lymphocyte Count 4.82 X10^3/uL (0.83-4.51); Absolute Neutrophil Count 9.8 X10^3/uL (2.0-7.7); Basophil% 0.6 % (0-1); Hematocrit 45.3 % (37-47); Lymphocyte # 4.82 X10^3/ul (0.83-4.51); Lymphocyte % 31.2 % (19-41); Mean Corp Hgb Conc 33.1 g/dL (32-36); Mean Corpuscular Hgb 29.9 pg (27.0-32.0); Mean Corpuscular Volume 90.2 fL (81-99); Mean Platelet Vol. 9.1 fl (6.2-12.0); Monocyte# 0.66 X10^3/uL; Monocyte% 4.3 % (0-10); NRBC Flagged by Analyzer 0 % (0-5); Neutrophil # 9.81 X10^3/uL (2.7-7.7); Neutrophil % 63.4 % (47-70); POSITIVE MORPHOLOGY YES; Platelet Count 388 K/mm3 (150-450); RBC Distribution Width CV 13.1 % (11.6-14.6); RBC Distribution Width SD 42.4 fl (35.1-43.9); Red Blood Count 5.02 M/mm3 (4.2-5.4); White Blood Count 15.5 K/mm3 (4.4-11.0)
[2021-10-16 14:06] LABS: Differential Indicated SCAN CRITERIA MET
[2021-10-16 14:09] LABS: Color, Urine Yellow (Yellow); Glucose, Dipstick Normal (Normal); Ketone-Dipstick Negative (Negative); Leukocyte Esterase-Dipstick 25 /ul (Negative); Nitrite-Dipstick Negative (Negative); Occult Blood-Urine 250 /ul (Negative); Protein-Dipstick Negative (Negative); Specific Gravity, Urine 1.015 (1.002-1.030); Urine Bilirubin Dipstick Negative (Negative); Urine Clarity Clear (Clear); Urine Urobilinogen Normal (Normal)
[2021-10-16 14:16] LABS: Red Blood Cells-Urine 5-10 SEEN /hpf (0-5); Squamous Epithelial Cells - UA 0-5 SEEN /hpf (5-10); White Blood Cells 5-10 SEEN /hpf (0-5)
[2021-10-16 14:17] LABS: Bacteria 1+ /hpf (None Seen)
[2021-10-16 14:18] LABS: Anion Gap 5 (5-15); BUN 10 mg/dL (7-18); BUN/Creat Ratio 14.1 RATIO (10-20); Calcium,Total 9.4 mg/dL (8.5-10.1); Chloride 104 mmol/L (98-107); Creatinine, Serum 0.71 mg/dL (0.55-1.02); EST Glomerular Filtration Rate 100 mL/min (>60); Est Glom Filt Rate - Afr Amer 121 mL/min (>60); Estimated Creatinine Clearance 108.57 ml/min; Glucose 213 mg/dL (74-106); Potassium 3.8 mmol/L (3.5-5.1); Sodium Level 137 mmol/L (136-145)
[2021-10-16 14:25] LABS: Platelet Estimate ADEQUATE (ADEQ); Polychromasia 1+
== END 2021-10-16 15:47 | disposition home or self-care (01) ==
PROVIDERS: Nurse Practitioner; Emergency Provider Emergency Medicine; Visit Provider Emergency Medicine
DX: R10.2 Pelvic and perineal pain (principal); F17.210 Nicotine dependence, cigarettes, uncomplicated
CPT/HCPCS: 76830; 80048; 81001; 85025; 93976; 96361; 96374; 96375; 99283; J2405

== ENCOUNTER 2021-11-10 06:55 | Day surgery (SDC) | payer MEDICAID, SELFPAY ==
[2021-11-10] VITALS (7 sets, daily range): BP systolic 115–153; BP diastolic 77–99; PULSE 90–114; RESP 16–18; TEMP 36.6–36.9; O2SAT 96–98; BMI 54.3
[2021-11-10] MEDS: Lactated Ringers 1,000 ML 15 ML IV (07:27)
[2021-11-10 07:31] LABS: Bedside Glucose 243 mg/dL (74-106)
--- NOTE | 2021-11-10 08:51 | RAD_ITS ---
PROCEDURE: Caudal block. DATE OF EXAMINATION: 11/10/2021 INDICATION: Female, 36 years old. Low back pain. FLUOROSCOPY TIME (if supplied): (18.4 seconds) minutes/seconds. 2 images were submitted. RAD/Fluor Guidance for Spine Inj IMPRESSION: Intraoperative imaging provided for caudal block. Electronically Signed: Sarwat Wheat MD at 12:26 EDT ,
[2021-11-10] MEDS: Bupivacaine Mpf 0.5% 30 ML VIAL (09:00)
[2021-11-10] MEDS: 0.9% Normal Saline (Pres. free 10 ML Vial (09:00)
[2021-11-10] MEDS: MethylPREDNISolone Acetate 80 MG/ML Vial (09:00)
[2021-11-10] MEDS: Lidocaine 1% (5 ml sdv) 5 ML Vial (09:00)
--- NOTE | 2021-11-10 12:25 | OP.PCM_ITS ---
Report of Operation Date of Procedure: 11/10/21 Pre-Operative Diagnosis: Lumbosacral radiculopathy, lumbosacral degenerative di sc disease, lumbosacral spinal stenosis Post-Operative Diagnosis: Lumbosacral radiculopathy, lumbosacral degenerative disc disease, lumbosacral spinal stenosis Surgery/Procedure Performed:: Caudal epidural steroid injection under fluoroscopic guidance Type of Anesthesia: MAC Estimated Blood Loss (mL): Minimal Description of Procedure: DESCRIPTION OF PROCEDURE: History and physical of today was reviewed. Risks and benefits of the procedure were explained. The patient understood and agreed to proceed. Informed consent was obtained. IV inserted per routine protocol. The patient was taken to the operating room and placed in the prone position with a pillow positioned underneath the abdomen. The lower back and tailbone area was prepped and draped in a sterile fashion using iodine x3. Under fluoroscopy guidance on a lateral view, the caudal space was identified. The skin and subcutaneous tissue was anesthetized with approximately 3 mL of 1% lidocaine using a 25-gauge regular needle. Under direct visualization with fluoroscopy, using a 22-gauge 3-1/2-inch spinal needle, the needle was advanced via the skin through the sacral hiatus. The tip of the needle was passed through the sacrococcygeal ligament and advanced to approximately S4 area. After negative aspiration of blood or CSF, a total of 3 mL of contrast was injected to confirm correct placement of the needle as well as cephalad spread. The spread was followed to approximately L5 area. After confirmation on AP as well as lateral view and repeated negative aspiration, a total of 15 mL of preservative-free 0.125% Marcaine with 80 mg of Depo-Medrol was injected easily. The needle was then removed intact. The patient experienced no sign or symptoms of intrathecal or intravascular injection. The patient experienced no paresthesia. The procedure was completed without any apparent difficulty or any complications. The patient appeared to tolerate it well. ASSESSMENT AND PLAN: This is a 36-year-old female with lumbosacral radiculopathy, lumbosacral degenerative disc disease, lumbosacral spinal stenosis status post caudal epidural steroid injection, patient will continue her current medications, patient will follow in approximately 2 weeks for reevaluation. Complications None
== END 2021-11-10 09:38 | disposition home or self-care (01) ==
LOC: SDC 06:55 → AC 06:56
PROVIDERS: Referring Provider Anesthesiology Pain Medicine; Visit Provider Anesthesiology Pain Medicine
PROC: 3E0S3BZ Introduction of Anesthetic Agent into Epidural Space, Percutaneous Approach (ICD-10-PCS; CPT 62282; principal; 2021-11-10 08:25)
DX: M51.17 Intervertebral disc disorders with radiculopathy, lumbosacral region (principal); E11.9 Type 2 diabetes mellitus without complications; M48.07 Spinal stenosis, lumbosacral region; F41.9 Anxiety disorder, unspecified; F32.A Depression, unspecified; G89.29 Other chronic pain; K21.9 Gastro-esophageal reflux disease without esophagitis; I10 Essential (primary) hypertension; F43.10 Post-traumatic stress disorder, unspecified; Z79.899 Other long term (current) drug therapy
CPT/HCPCS: 62323; 01992; 64483; 77003; 82962; J7120; J3490

== ENCOUNTER 2022-01-26 07:43 | Day surgery (SDC) | payer MEDICAID, SELFPAY ==
[2022-01-26] VITALS (7 sets, daily range): BP systolic 91–114; BP diastolic 67–77; PULSE 86–106; RESP 16–18; TEMP 36.1–36.3; O2SAT 96–98; BMI 52.4
[2022-01-26] MEDS: Lactated Ringers 1,000 ML 15 ML IV (08:30)
[2022-01-26 09:04] LABS: Internal QC Validated? YES +Cl - CLEAR BKGD; Pregnancy, Serum, hCG Quali. NEGATIVE Negative
[2022-01-26 09:10] LABS: Bedside Glucose 222 mg/dL (74-106)
--- NOTE | 2022-01-26 09:33 | RAD_ITS ---
STUDY: INTRAOPERATIVE FLUOROSCOPY TECHNIQUE: The examination was performed with referring physician in attendance. Under fluoroscopic observation, fluoroscopic images were obtained. Radiologist was not present for the study. Radiologist did not perform the procedure. This dictation is for documentation of the radiation dosage only. There is no interpretation of the images. TOTAL NUMBER OF IMAGES: 6 COMPARISON: None RADIATION DOSE: 15.7 mGy FLUOROSCOPY TIME: 19 seconds REASON FOR EXAM: MEDIAL BRANCH BLOCK L4-S1, BILAT Female, 37 years old. FINDINGS: Images of the lumbar spine. Multiple images demonstrate needle placement along the spine. RAD/L/S Spine Min 4 Views IMPRESSION: Fluoroscopic assistance images were obtained. Dictation for documentation purposes only. Electronically Signed: Aidan Smith MD at 14:23 EDT ,
[2022-01-26] MEDS: Bupivacaine 0.25% 30 ML Vial (09:35)
[2022-01-26] MEDS: MethylPREDNISolone Acetate 80 MG/ML Vial (09:35)
[2022-01-26] MEDS: Lidocaine 1% (5 ml sdv) 5 ML Vial (09:35)
--- NOTE | 2022-01-26 15:14 | PCM.OPRPT ---
Report of Operation Date of Procedure: 01/26/22 Pre-Operative Diagnosis: Lumbosacral spondylosis, lumbosacral degenerative disc disease, lumbar facet arthropathy Post-Operative Diagnosis: Lumbosacral spondylosis, lumbosacral degenerative disc disease, lumbar facet arthropathy Description of Surgical Findings:: PROCEDURE PERFORMED: Bilateral lumbar medial branch block at, L4, L5, and S1. ANESTHESIA: MAC. BLOOD LOSS: Minimal. COMPLICATIONS: None. DESCRIPTION OF PROCEDURE: History and physical of today was reviewed. Risks and benefits of the procedure were explained. The patient understood and agreed to proceed. Informed consent was obtained. IV inserted per routine protocol. The patient was taken to the operating room and placed in the prone position with a pillow positioned underneath the abdomen. The lower back area was prepped and draped in a sterile fashion using iodine x3. Under fluoroscopy guidance on AP view, the L4 through S1 vertebral bodies were visualized. The skin and subcutaneous tissue was anesthetized with approximately 5 mL of 1% lidocaine using a 25-gauge regular needle. Under direct visualization with fluoroscopy, at approximately 25-degree angle, starting on the left L4, ending on the right L4, passing through the L5 and S1 bilaterally, using a 22-gauge 3-1/2-inch spinal needle, the needle was advanced via the skin. The tip of the needle was maneuvered and directed towards the superior medial gutter of the transverse process at the vicinity of the medial branch. Once tip of the needle was in contact with the bone, the needle was pulled approximately 2 mm off the bone. After negative aspiration for blood or CSF and confirmation on AP, oblique as well as lateral view, a total of 12 mL of preservative-free 0.25% Marcaine with 80 mg of Depo-Medrol was injected in divided doses between those six levels. The needles were then removed intact. The patient experienced no sign or symptoms of intrathecal or intravascular injection. The patient experienced no paresthesia. The procedure was completed without any apparent difficulty or any complications. The patient appeared to tolerate it well. ASSESSMENT AND PLAN: This is a 37-year-old female with lumbosacral spondylosis, lumbosacral degenerative disc disease, lumbar facet arthropathy status post bilateral lumbar medial branch block at L4-S1, patient will continue current medications, patient will follow in approximately 1 to 2 weeks for reevaluation.
== END 2022-01-26 10:44 | disposition home or self-care (01) ==
LOC: SDC 07:45 → AC 07:46
PROVIDERS: Anesthesiology; Referring Provider Anesthesiology Pain Medicine; Visit Provider Anesthesiology Pain Medicine
PROC: 3E0T3BZ Introduction of Anesthetic Agent into Peripheral Nerves and Plexi, Percutaneous Approach (ICD-10-PCS; CPT 64493; principal; 2022-01-26 09:35)
DX: M47.816 Spondylosis without myelopathy or radiculopathy, lumbar region (principal); E11.9 Type 2 diabetes mellitus without complications; M47.817 Spondylosis without myelopathy or radiculopathy, lumbosacral region; M51.37 Other intervertebral disc degeneration, lumbosacral region; I10 Essential (primary) hypertension; K21.9 Gastro-esophageal reflux disease without esophagitis; Z79.899 Other long term (current) drug therapy; F41.9 Anxiety disorder, unspecified; F32.A Depression, unspecified
CPT/HCPCS: 64493; 64494; 01992; 64483; 72110; 82962; 84703; J7120

== ENCOUNTER 2022-02-25 09:33 | Emergency (ER) | payer MEDICAID, SELFPAY ==
[2022-02-25 09:35] VITALS: BP 160/89; PULSE 108; RESP 17; TEMP 36.4; O2SAT 98; BMI 52.6
--- NOTE | 2022-02-25 09:46 | EDS_ITS ---
HPI History of Present Illness Chief Complaint: Back Detail of Chief Complaint: Left lateral back spasm Informant: patient Onset/Context/Timing Onset: Today and Hours Context: Sudden Onset Timing: Continuous Quality: Sharp and Aching Location: Thoracic Current Severity: Moderate Maximum Severity: Moderate Worsened by: improves with Movement Relieved by: Nothing Associated Symptoms Associated Symptoms: Negative for Numbness, Tingling, Fever, Abdominal Pain, Unable to Ambulate, Urinary Incontinence or Constipation Narrative Narrative: 37-year-old female history of PTSD and diabetes. Has a history of muscle spasms for which she takes baclofen. States early this morning had spasms in her back. She took her baclofen without any significant relief. Denies any fall or trauma. No fever. No other complaints. Prior similar symptoms: Yes Recent Illness/Hospitalization: No PFSH PFSH Medical History Anxiety Back pain Balance problem BiPAP (biphasic positive airway pressure) dependence Blister Cardiology follow-up encounter Chest pain Chronic neck and back pain Depression Diabetes Dietary restriction Fatigue Gastric reflux History of edema History of pain when walking Hypertension Leg cramps Marijuana use OCD (obsessive compulsive disorder) PTSD (post-traumatic stress disorder) Shortness of breath on exertion Smoker Ulnar nerve entrapment Wears glasses Home Medications baclofen 10 mg tablet 1 tab PO TID 11/17/19 [History Last Taken Unknown] nabumetone 500 mg tablet 500 mg PO BID 11/17/19 [History Last Taken Unknown] buspirone 10 mg tablet 15 mg PO TID 02/12/20 [History Last Taken Unknown] clonidine HCl 0.1 mg tablet 0.1 mg PO DAILY 02/21/21 [History Last Taken 01/26/22 0.1 mg] lisinopril 10 mg tablet 10 mg PO DAILY 02/21/21 [History Last Taken 01/26/22 10 mg] pantoprazole 20 mg tablet,delayed release (Protonix) 40 mg PO DAILY 03/02/21 [History Last Taken 01/26/22 40 mg] vortioxetine 20 mg tablet (Trintellix) 20 mg PO DAILY 03/02/21 [History Last Taken Unknown] dapagliflozin 5 mg tablet (Farxiga) 5 mg PO DAILY 07/23/21 [History Last Taken Unknown] hydrocodone-acetaminophen 5-325mg 5mg-325mg 1 tab PO Q4H PRN PRN Pain 2 days #8 TABLETS 10/12/21 [Rx Last Taken Unknown] divalproex 500 mg tablet,delayed release (Depakote) 500 mg PO BID 11/07/21 [History Last Taken Unknown] Allergy/AdvReac Type Severity Reaction Status Date / Time adhesive tape Allergy BLISTERS Verified 02/25/22 09:36 gabapentin Allergy not alert Verified 02/25/22 09:36 amitriptyline AdvReac NEEDS Verified 02/25/22 09:36 FOLLOW-UP duloxetine [From Cymbalta] AdvReac NEEDS Verified 02/25/22 09:36 FOLLOW-UP mirtazapine [From Remeron] AdvReac NEEDS Verified 02/25/22 09:36 FOLLOW-UP Surgical History History of appendectomy History of tonsillectomy Hx of cholecystectomy Hx of dilation and curettage Social History Smoking Status: Current every day smoker tobacco type: cigarettes ROS ROS ED ROS Narrative Denies recent illness. Back spasms. Review of Systems ROS Unobtainable: Denies due to encephalopathy Constitutional Constitutional ED: Denies chills or fever(s) Eyes Eyes: Denies blurry vision ENT ENT ED: Denies ear pain Cardiovascular Cardiovascular: Denies chest pain Respiratory/Chest Respiratory/Chest: Denies dyspnea Gastrointestinal Gastrointestinal: Denies abdominal pain Genitourinary Genitourinary ED: Denies dysuria or hematuria Musculoskeletal Musculoskeletal: Reports back pain; Denies arthralgias Integumentary Denies abscess Neurologic Neurologic: Denies headache(s) Psychiatric Psychiatric: Denies anxiety Endocrine Endocrinology: Denies cold intolerance Hematologic/Lymphatic Hematologic/Lymphatic: Denies easy bleeding Allergic/Immunologic Allergic/Immunologic ED: Denies mouth swelling EXAM Physical Exam Narrative Exam Narrative: 37-year-old female vital signs are stable afebrile does not look septic or toxic. H EENT exam unremarkable. Neck nontender. Lungs are clear. Heart regular rhythm rate about 100 no murmur. Abdomen obese but soft nontender normal bowel sounds no peritoneal signs. Moving all 4 extremities. Neurovascular intact. Normal motor strength both upper and lower extremities. She has tenderness over the left lower lateral latissimus dorsi consistent with a muscle spasm. There is no signs of trauma. No bony tenderness. Neurologically she is awake and alert with normal motor strength. Const Vital Signs: 02/25/22 09:35 Temperature 97.6 F L Temperature Source Temporal Pulse Rate 108 H Respiratory Rate 17 Blood Pressure 160/89 H Blood Pressure Mean 112 Pulse Ox 98 Oxygen Delivery Method Room Air Positive well nourished, well developed and obese; Negative for cachectic, contractures or unkempt General Appearance ED: well developed and NAD; Negative for unkempt, cachectic, contractures or pallor Nutritional Appearance: obese; Negative for cachectic HEENT Reports moist mucous membranes Negative for trauma Eyes PERRL and EOMs intact bilaterally General Eye ED: Negative for pale conjunctiva or scleral icterus Neck no lymphadenopathy, supple and no JVD General: Negative for tenderness Thyroid: Negative for other Resp normal respiratory effort Effort and Inspection: Negative for pain with movement Auscultation: Negative for rales, rhonchi or wheezes Percussion: Negative for other Cardio regular rate, regular rhythm, S1 normal heart sound, S2 normal heart sound and no murmurs Palpation: Negative for palpable S3 Rate: Negative for bradycardia Rhythm: Negative for abnormal rhythm Bruits: Negative for other GI normal to inspection, nondistended, normoactive bowel sounds, soft to palpation, non-tender, non-distended and no masses Inspection: Negative for abdominal distention Auscultation: Negative for hyperactive bowel sounds Palpation: Negative for tender or guarding Back/Spine normal to inspection; Negative for no thoracic nor lumbar tenderness Back/Spine Narrative: Tenderness left lateral latissimus dorsi. Consistent with muscle spasm. Cervical Spine: Negative for cervical spine tenderness and Negative for paracervical muscle tenderness Thoracic Spine / Upper Back: paraspinal muscle tenderness Extremity normal to inspection and no clubbing, cyanosis or edema Neuro oriented x3 Sensorium / Orientation: alert; Negative for confused, lethargic or stuporous Sensory Exam: No other Motor Exam: strength 5/5 throughout; Negative for strength abnormal Psych mental status grossly normal Appearance: Negative for unkempt Attitude: No agitated Mood & Affect: Negative for depressed, sad or tearful Skin no rashes or lesions noted General Skin Exam: Negative for jaundice or pallor Lesions: No lesion noted Rashes: No rashes noted Trauma: Negative for abrasion Wounds: Negative for wounds noted MDM MDM MDM Narrative Medical decision making narrative: 37-year-old female with acute on chronic muscle spasms. She has baclofen at home. She will be given a dose of Valium here. She has a ride home. Hot michelle wer, warm bath massage. Use her baclofen as needed. Discharge Plan Triage Chief Complaint: Back ED Provider: Jason Lira Dx/Rx/DC Orders Clinical Impression: Back muscle spasm, History of diabetes mellitus Instructions: ED Back Spasm, No Trauma Prescriptions: No Action baclofen 10 mg tablet 1 tab PO TID Label Comments: TAKE 1 TABLET two - three times daily as needed for spasms. nabumetone 500 MG tablet 500 mg PO BID buspirone 10 MG tablet 15 mg PO TID clonidine HCl 0.1 mg Tablet 0.1 mg PO DAILY lisinopril 10 mg Tablet 10 mg PO DAILY pantoprazole [Protonix] 20 mg Tablet,Delayed Release (Dr/Ec) 40 mg PO DAILY Trintellix 20 mg tablet 20 mg PO DAILY Label Comments: Take 1 tablet by mouth once a day Farxiga 5 mg Tablet 5 mg PO DAILY hydrocodone-acetaminophen [hydrocodone-acetaminophen] 1 TABLET tablet 1 tab PO Q4H PRN PRN (Reason: Pain) 2 Days Qty: 8 0RF divalproex [Depakote] 500 mg Tablet,Delayed Release (Dr/Ec) 500 mg PO BID Primary Care Provider: CYRUS BOWENS Referrals: CYRUS BOWENS [Other] Activity Restrictions/Additional Instructions: Hot shower, warm bath of the size to relax the muscles in your back. Use your baclofen as prescribed. Motrin and Tylenol for pain. Follow-up with your doctor if not improving. Disposition Disposition: Home, Self Care
[2022-02-25] MEDS: diazePAM 5 MG Tablet 10 MG PO (10:03)
== END 2022-02-25 10:05 | disposition home or self-care (01) ==
LOC: ED 09:57
PROVIDERS: Emergency Provider Emergency Medicine; Visit Provider Emergency Medicine
DX: M62.830 Muscle spasm of back (principal); I10 Essential (primary) hypertension; F17.210 Nicotine dependence, cigarettes, uncomplicated; E66.9 Obesity, unspecified; K21.9 Gastro-esophageal reflux disease without esophagitis; F41.9 Anxiety disorder, unspecified; Z79.899 Other long term (current) drug therapy
CPT/HCPCS: 99283

== ENCOUNTER 2022-04-08 07:14 | Emergency (ER) | payer MEDICAID, SELFPAY ==
[2022-04-08 07:15] VITALS: BP 144/85; PULSE 82; RESP 26; TEMP 36.2; O2SAT 99; BMI 53.7
--- NOTE | 2022-04-08 07:58 | EDS_ITS ---
HPI History of Present Illness Chief Complaint: Chest Pain Informant: patient Onset/Context/Timing Onset: Month(s) (1.5) Activity at onset: gradual Timing: Intermittent and Lasts (Approximately 10 minutes) Quality: Positive for Dull, Sharp and Stabbing Location: Right Chest and Left Chest Worsened By: Exertion Relieved By: - (Heating pad) Associated Symptoms: Positive for Dyspnea and Cough; Negative for Nausea, Vomiting, Diaphoresis, Fever, Lightheadedness, Acid Reflux or Palpitations Narrative Narrative: Patient presents with chest pain that has been intermittent for the past 1-1/2 months. Patient states it comes on gradually. Patient states it is sharp and stabbing. Patient states it then becomes dull for approximately 10 minutes and then resolves. Patient states it is on both sides of her chest. Patient states it is worse with exertion and better with a heating pad. Patient admits to some shortness of breath and cough. Patient denies any fevers or chills. Patient denies any diaphoresis. Patient denies any nausea or vomiting. Patient states she had a stress echocardiogram done last week. Patient denies any PE risk factors. CVD Risk Factors: Positive for Hypertension, Diabetes and Smoking; Negative for Hypercholesterolemia or Family History 1' </=55 PE Risk Factors: Negative for Recent Travel/Surgery, Recent Immobilization, Prior DVT or PE, Cancer or OCP + Smoking + >/=35 PFSH PFSH Medical History (Updated 04/08/22 @ 09:[address] Filemon Ortiz, DO) Anxiety Back pain Balance problem BiPAP (biphasic positive airway pressure) dependence Blister Cardiology follow-up encounter Chest pain Chronic neck and back pain Depression Diabetes Dietary restriction Fatigue Fibromyalgia Gastric reflux History of edema History of pain when walking Hypertension Leg cramps Marijuana use OCD (obsessive compulsive disorder) PTSD (post-traumatic stress disorder) Shortness of breath on exertion Smoker Ulnar nerve entrapment Wears glasses Home Medications baclofen 10 mg tablet 1 tab PO TID 11/17/19 [History Last Taken Unknown] nabumetone 500 mg tablet 500 mg PO BID 11/17/19 [History Last Taken Unknown] buspirone 10 mg tablet 15 mg PO TID 02/12/20 [History Last Taken Unknown] clonidine HCl 0.1 mg tablet 0.1 mg PO DAILY 02/21/21 [History Last Taken 01/26/22 0.1 mg] lisinopril 10 mg tablet 10 mg PO DAILY 02/21/21 [History Last Taken 01/26/22 10 mg] pantoprazole 20 mg tablet,delayed release (Protonix) 40 mg PO DAILY 03/02/21 [History Last Taken 01/26/22 40 mg] vortioxetine 20 mg tablet (Trintellix) 20 mg PO DAILY 03/02/21 [History Last Taken Unknown] dapagliflozin 5 mg tablet (Farxiga) 5 mg PO DAILY 07/23/21 [History Last Taken Unknown] hydrocodone-acetaminophen 5-325mg 5mg-325mg 1 tab PO Q4H PRN PRN Pain 2 days #8 TABLETS 10/12/21 [Rx Last Taken Unknown] divalproex 500 mg tablet,delayed release (Depakote) 500 mg PO BID 11/07/21 [Hist ory Last Taken Unknown] Allergy/AdvReac Type Severity Reaction Status Date / Time adhesive tape Allergy BLISTERS Verified 02/25/22 10:02 gabapentin Allergy not alert Verified 02/25/22 10:02 amitriptyline AdvReac NEEDS Verified 02/25/22 10:02 FOLLOW-UP duloxetine [From Cymbalta] AdvReac NEEDS Verified 02/25/22 10:02 FOLLOW-UP mirtazapine [From Remeron] AdvReac NEEDS Verified 02/25/22 10:02 FOLLOW-UP Surgical History History of appendectomy History of tonsillectomy Hx of cholecystectomy Hx of dilation and curettage Social History Smoking Status: Current every day smoker tobacco type: cigarettes ROS ROS ED Constitutional Constitutional ED: Denies chills or fever(s) Eyes Eyes: Denies blurry vision or change in vision ENT ENT ED: Denies rhinorrhea or sore throat Cardiovascular Cardiovascular: Reports chest pain; Denies palpitations Respiratory/Chest Respiratory/Chest: Reports cough and dyspnea Gastrointestinal Gastrointestinal: Denies abdominal pain, nausea or vomiting Genitourinary Genitourinary ED: Denies dysuria or hematuria Musculoskeletal Musculoskeletal: Reports back pain; Denies neck pain Integumentary Denies abscess or rash Neurologic Neurologic: Denies headache(s) or weakness Allergic/Immunologic Allergic/Immunologic ED: Denies mouth swelling or urticaria EXAM Physical Exam Const Vital Signs: 04/08/22 07:15 04/08/22 08:21 04/08/22 08:21 Temperature 97.2 F L Temperature Source Temporal Pulse Rate 82 90 Respiratory Rate 26 H 18 Respiratory Pattern Blood Pressure 144/85 H Blood Pressure Mean 104 Pulse Ox 99 Oxygen Delivery Method Room Air Room Air 04/08/22 08:21 Temperature Temperature Source Pulse Rate Respiratory Rate Respiratory Pattern Normal Blood Pressure Blood Pressure Mean Pulse Ox Oxygen Delivery Method Positive well nourished, well developed and obese General Appearance ED: well developed and NAD Nutritional Appearance: obese HEENT normocephalic and atraumatic Eyes PERRL and EOMs intact bilaterally Neck supple and no JVD Chest Wall palpation of chest normal Resp normal respiratory effort and clear to auscultation bilaterally Effort and Inspection: Negative for respiratory distress Cardio regular rate, regular rhythm and no murmurs GI normal to inspection, nondistended, normoactive bowel sounds, soft to palpation, non-tender and non-distended Extremity normal to inspection General Extremety ED: Negative for edema or tenderness General Extremity: Negative for edema Neuro oriented x3, CN's II-XII intact bilaterally and no sensory deficits noted Sensorium / Orientation: awake and alert Motor Exam: strength 5/5 throughout Psych mental status grossly normal Heart Score History: Slightly/Non-Suspicious ECG: Normal Age: </= 45 years Risk Factors: >/= 3 Risk Factors or History of CAD Troponin: </= Normal Limit Score: 2 MDM MDM MDM Narrative Medical decision making narrative: EKG was obtained. On my interpretation, it showed a normal sinus rhythm with a rate of 75. LA interval, QRS interval, and QTc intervals were all normal. [place] was normal. There are no acute ST or T wave changes. PA and lateral chest x- ray was obtained. There are 2 views. On my interpretation, lung lechuga are clear. There is normal cardiac silhouette. Bony thorax is normal. There is no acute process noted. Radiologist also interpreted the x-ray and agrees. CBC shows a mild leukocytosis of 12.6. This is consistent with prior results. D- dimer was normal. Basic metabolic profile was within normal limits. High- sensitivity troponin was normal. Patient has a HEART score of 2. Patient was advised that this is low risk for acute cardiac event. The patient was advised that this may be musculoskeletal in nature. Patient was instructed to follow-up with her primary care physician in 5 to 7 days. Patient was instructed to take Tylenol or ibuprofen as needed for pain. Patient understood and was agreeable with the plan. All questions were answered. Lab Data Attestation: I reviewed the patient's lab results. Labs: Laboratory Results - last 24 hr 04/08/22 04/08/22 04/08/22 08:20 08:20 08:20 WBC 12.6 H RBC 4.81 Hgb 14.7 Hct 44.7 MCV 92.9 MCH 30.6 MCHC 32.9 RDW Std Deviation 45.9 H RDW Coeff of [place] 13.3 Plt Count 354 MPV 9.4 Immature Gran % (Auto) 0.500 Neut % (Auto) 56.0 Lymph % (Auto) 36.3 [place] % (Auto) 6.5 Eos % (Auto) 0.1 Baso % (Auto) 0.6 Absolute Neuts (auto) 7.1 Absolute Lymphs (auto) 4.58 H Nucleated RBC % 0 D-Dimer Quant (PE/DVT) 0.30 Sodium 140 Potassium 4.0 Chloride 110 H Carbon Dioxide 25.0 Anion Gap 5 BUN 9 Creatinine 0.60 Estim Creat Clear Calc 127.26 Est GFR (MDRD) Af Amer 147 Est GFR (MDRD) Non-Af 122 BUN/Creatinine Ratio 15.1 Glucose 150 H Calcium 9.2 Troponin I High Sens 4 Radiography Chest X-Ray - ED: 2 View, Read by ED Physician, Read by Radiologist, Normal and No Acute Disease Diagnostic Testing: Clinical Impression(s) from Imaging Studies Chest X-Ray 04/08/22 08:04 IMPRESSION: Normal x-ray examination of the chest. Electronically Signed: Sarwat Wheat MD at 8:50 EDT , EKG Initial EKG: Attestation: I personally reviewed and interpreted this EKG as follows: Interpretation: Sinus Rhythm (75) and No Acute Injury Pattern Prior EKG tracings: available for review Prior: Unchanged (03/02/2021) Discharge Plan Triage Chief Complaint: Chest Pain ED Provider: Filemon Ortiz Dx/Rx/DC Orders Clinical Impression: Chest pain, Morbid obesity with BMI of 50.0-59.9, adult Instructions: ED Chest Pain, Uncertain Cause Prescriptions: No Action baclofen 10 mg tablet 1 tab PO TID Label Comments: TAKE 1 TABLET two - three times daily as needed for spasms. nabumetone 500 MG tablet 500 mg PO BID buspirone 10 MG tablet 15 mg PO TID clonidine HCl 0.1 mg Tablet 0.1 mg PO DAILY lisinopril 10 mg Tablet 10 mg PO DAILY pantoprazole [Protonix] 20 mg Tablet,Delayed Release (Dr/Ec) 40 mg PO DAILY Trintellix 20 mg tablet 20 mg PO DAILY Label Comments: Take 1 tablet by mouth once a day Farxiga 5 mg Tablet 5 mg PO DAILY hydrocodone-acetaminophen [hydrocodone-acetaminophen] 1 TABLET tablet 1 tab PO Q4H PRN PRN (Reason: Pain) 2 Days Qty: 8 0RF divalproex [Depakote] 500 mg Tablet,Delayed Release (Dr/Ec) 500 mg PO BID Primary Care Provider: CYRUS BOWENS Referrals: CYRUS BOWENS [Other] - 3-5 Days Disposition Disposition: Home, Self Care
--- NOTE | 2022-04-08 08:03 | EKG12_ITS ---
Test Reason : CP Blood Pressure : / mmHG Vent. Rate : 075 BPM Atrial Rate : 075 BPM P-R Int : 170 ms QRS Dur : 088 ms QT Int : 392 ms P-R-T Axes : 033 006 016 degrees QTc Int : 437 ms Normal sinus rhythm Normal ECG Confirmed by DAMASO LINARES, ELENITA ([id number]), department editor DOV ACOSTA ([id number]) on 04/09/2022 1:49:45 P M Referred By: LANDON Confirmed By:FRANNIE PETIT MD
--- NOTE | 2022-04-08 08:04 | RAD_ITS ---
STUDY: X-RAY CHEST REASON FOR EXAM: Female, 37 years old. Chest pain TECHNIQUE: 1 month history of the left sided chest pain. COMPARISON: Comparison is made with prior study of 03/27/2021. FINDINGS: EKG electrodes are seen. The lungs are clear and expanded. There is no demonstrated pleural abnormality. Normal size heart. Normal mediastinum and patricia. Normal visualized pulmonary arteries. Normal visualized aortic arch and descending thoracic aorta. Normal visualized thoracic spine. Normal visualized ribs, clavicles, and shoulders. There is no demonstrated abnormality of the visualized soft tissue structures of the upper abdomen. RAD/Chest PA and Lateral IMPRESSION: Normal x-ray examination of the chest. Electronically Signed: Sarwat Wheat MD at 8:50 EDT ,
[2022-04-08] MEDS: Aspirin 81 MG TAB.CHEW 324 MG PO (08:20)
[2022-04-08 08:21] VITALS: PULSE 90; RESP 18
[2022-04-08 08:34] LABS: Absolute Lymphocyte Count 4.58 X10^3/uL (0.83-4.51); Absolute Neutrophil Count 7.1 X10^3/uL (2.0-7.7); Basophil# 0.08 X10^3/uL; Basophil% 0.6 % (0-1); Eosinophil# 0.01 X10^3/uL; Eosinophils% 0.1 % (0-5); Hematocrit 44.7 % (37-47); Hemoglobin 14.7 g/dL (12.0-15.0); Lymphocyte # 4.58 X10^3/ul (0.83-4.51); Lymphocyte % 36.3 % (19-41); Mean Corp Hgb Conc 32.9 g/dL (32-36); Mean Corpuscular Hgb 30.6 pg (27.0-32.0); Mean Corpuscular Volume 92.9 fL (81-99); Mean Platelet Vol. 9.4 fl (6.2-12.0); Monocyte# 0.82 X10^3/uL; Monocyte% 6.5 % (0-10); NRBC Flagged by Analyzer 0 % (0-5); Neutrophil # 7.05 X10^3/uL (2.7-7.7); Platelet Count 354 K/mm3 (150-450); RBC Distribution Width CV 13.3 % (11.6-14.6); RBC Distribution Width SD 45.9 fl (35.1-43.9); Red Blood Count 4.81 M/mm3 (4.2-5.4); White Blood Count 12.6 K/mm3 (4.4-11.0)
[2022-04-08 08:51] LABS: Anion Gap 5 (5-15); BUN 9 mg/dL (7-18); BUN/Creat Ratio 15.1 RATIO (10-20); Calcium,Total 9.2 mg/dL (8.5-10.1); Chloride 110 mmol/L (98-107); EST Glomerular Filtration Rate 122 mL/min (>60); Est Glom Filt Rate - Afr Amer 147 mL/min (>60); Estimated Creatinine Clearance 127.26 ml/min; Glucose 150 mg/dL (74-106); Sodium Level 140 mmol/L (136-145); Troponin-I HS 4 pg/mL (3.0-54.0)
[2022-04-08 09:57] VITALS: PULSE 86
== END 2022-04-08 09:58 | disposition home or self-care (01) ==
PROVIDERS: Emergency Provider Emergency Medicine; Visit Provider Emergency Medicine
DX: R07.9 Chest pain, unspecified (principal); E66.01 Morbid (severe) obesity due to excess calories; Z68.43 Body mass index [BMI] 50.0-59.9, adult; F17.210 Nicotine dependence, cigarettes, uncomplicated
CPT/HCPCS: 71046; 80048; 84484; 85025; 85379; 93005; 99285; A4216

== ENCOUNTER 2022-05-04 08:00 | Day surgery (SDC) | payer MEDICAID, SELFPAY ==
[2022-05-04] VITALS (7 sets, daily range): BP systolic 115–149; BP diastolic 74–95; PULSE 99–111; RESP 18–20; TEMP 36.7–37.8; O2SAT 94–97; BMI 53.5
[2022-05-04] MEDS: Lactated Ringers 1,000 ML 15 ML IV (08:10)
[2022-05-04 08:25] LABS: Internal QC Validated? YES +Cl - CLEAR BKGD; Pregnancy, Urine Negative Negative
--- NOTE | 2022-05-04 08:49 | RAD_ITS ---
PROCEDURE: Bilateral L4-S1 medial branch nerve block. DATE OF EXAMINATION: 05/04/2022. INDICATION: Female, 37 years old. Low back pain. FLUOROSCOPY TIME (if supplied): (22 seconds) minutes/seconds. 7 images were submitted. RAD/L/S Spine Min 4 Views IMPRESSION: Intraoperative imaging provided for bilateral L4-S1 medial branch nerve block. Electronically Signed: Sarwat Wheat MD at 14:35 EST ,
[2022-05-04 08:55] LABS: Bedside Glucose 143 mg/dL (74-106)
[2022-05-04] MEDS: MethylPREDNISolone Acetate 80 MG/ML Vial (08:55)
[2022-05-04] MEDS: Lidocaine 1% (5 ml sdv) 5 ML Vial (08:55)
[2022-05-04] MEDS: Bupivacaine 0.25% 30 ML Vial (08:55)
--- NOTE | 2022-05-04 08:58 | OP.PCM_ITS ---
Report of Operation Date of Procedure: 05/04/22 Description of Surgical Findings:: Pre-Operative Diagnosis: Lumbosacral spondylosis, lumbosacral degenerative disc disease, lumbar facet arthropathy Post-Operative Diagnosis: Lumbosacral spondylosis, lumbosacral degenerative disc disease, lumbar facet arthropathy PROCEDURE PERFORMED:? Bilateral lumbar medial branch block at, L4, L5, and S1. ANESTHESIA:? MAC. BLOOD LOSS:? Minimal. COMPLICATIONS:? None. DESCRIPTION OF PROCEDURE:? History and physical of today was reviewed.? Risks and benefits of the procedure were explained.? The patient understood and agreed to proceed.? Informed consent was obtained.? IV inserted per routine protocol.? The patient was taken to the operating room and placed in the prone position with a pillow positioned underneath the abdomen.? The lower back area was prepped and draped in a sterile fashion using iodine x3.? Under fluoroscopy guidance on AP view, the L4 through S1 vertebral bodies were visualized.? The skin and subcutaneous tissue was anesthetized with approximately 5 mL of 1% lidocaine using a 25-gauge regular needle.? Under direct visualization with fluoroscopy, at approximately 25-degree angle, starting on the left L4, ending on the right L4, passing through the L5 and S1 bilaterally, using a 22-gauge 3-1/2-inch spinal needle, the needle was advanced via the skin.? The tip of the needle was maneuvered and directed towards the superior medial gutter of the transverse process at the vicinity of the medial branch.? Once tip of the needle was in contact with the bone, the needle was pulled approximately 2 mm off the bone.? After negative aspiration for blood or CSF and confirmation on AP, obliq ue as well as lateral view, a total of 12 mL of preservative-free 0.25% Marcaine with 80 mg of Depo-Medrol was injected in divided doses between those six levels.? The needles were then removed intact.? The patient experienced no sign or symptoms of intrathecal or intravascular injection.? The patient experienced no paresthesia.? The procedure was completed without any apparent difficulty or any complications.? The patient appeared to tolerate it well. ASSESSMENT AND PLAN:? This is a 37-year-old female with lumbosacral spondylosis, lumbosacral degener ative disc disease, lumbar facet arthropathy status post bilateral lumbar medial branch block at L4-S1, patient will continue current medications, patient will follow in approximately 1 to 2 weeks for reevaluation.
== END 2022-05-04 09:50 | disposition home or self-care (01) ==
LOC: SDC 08:01 → AC 08:04
PROVIDERS: Anesthesiology; Referring Provider Anesthesiology Pain Medicine; Visit Provider Anesthesiology Pain Medicine
PROC: 3E0S3BZ Introduction of Anesthetic Agent into Epidural Space, Percutaneous Approach (ICD-10-PCS; CPT 62322; principal; 2022-05-04 09:45)
DX: M47.816 Spondylosis without myelopathy or radiculopathy, lumbar region (principal); M51.37 Other intervertebral disc degeneration, lumbosacral region; M47.817 Spondylosis without myelopathy or radiculopathy, lumbosacral region; F12.90 Cannabis use, unspecified, uncomplicated; F17.210 Nicotine dependence, cigarettes, uncomplicated
CPT/HCPCS: 64494; 64493; 64495; 64483; 72110; 81025; 82962; J7120

== ENCOUNTER 2022-07-13 09:32 | Day surgery (SDC) | payer MEDICAID, SELFPAY ==
[2022-07-13 10:13] VITALS: BP 157/89; PULSE 104; RESP 16; TEMP 36.6; O2SAT 96; BMI 55.2
[2022-07-13] MEDS: Lactated Ringers 1,000 ML 15 ML IV (10:19)
[2022-07-13 10:23] LABS: Internal QC Validated? YES +Cl - CLEAR BKGD; Pregnancy, Urine Negative Negative
--- NOTE | 2022-07-13 10:30 | RAD_ITS ---
STUDY: X-RAY - LUMBAR SPINE REASON FOR EXAM: Female, 37 years old. RADIO FREQ ABLATION, L4-S1,LEFT TECHNIQUE: 11 intraoperative view(s) of the lumbar spine were obtained. COMPARISON: None FINDINGS: Intraoperative images demonstrate needle placement of L3 through L5 levels . RAD/L/S Spine Min 4 Views IMPRESSION: Intraoperative images of the lumbar spine. Electronically Signed: Juan Alberto Jackson DO at 22:14 EST ,
[2022-07-13 10:56] LABS: Bedside Glucose 151 mg/dL (74-106)
[2022-07-13] MEDS: MethylPREDNISolone Acetate 40 MG/ML Vial IM (11:55)
[2022-07-13] MEDS: Lidocaine 1% (30 ml sdv) 30 ML Vial (11:55)
[2022-07-13 12:07] VITALS: BP 126/101; BP 157/89; PULSE 98; RESP 16; TEMP 37.4; O2SAT 97
[2022-07-13 12:10] VITALS: BP 138/91; BP 157/89; PULSE 100; RESP 16; O2SAT 99
[2022-07-13 12:16] VITALS: BP 122/87; BP 157/89; PULSE 99; RESP 14; TEMP 36.9; O2SAT 99
--- NOTE | 2022-07-13 12:16 | PCM.OPRPT ---
Report of Operation Date of Procedure: 07/13/22 Pre-Operative Diagnosis: Lumbosacral spondylosis, lumbosacral degenerative disc disease, lumbar facet arthropathy Post-Operative Diagnosis: Lumbosacral spondylosis, lumbosacral degenerative disc disease, lumbar facet arthropathy Surgery/Procedure Performed:: Left-sided lumbar radiofrequency ablation of the medial branch L4, L5, S1 Type of Anesthesia: MAC Estimated Blood Loss (mL): Minimal Description of Procedure: History and physical today was reviewed. Risks and benefits of procedure explained. The patient understood, agreed to the procedure and informed consent was obtained. IV inserted per routine protocol. The patient was taken to the operating room, placed in the prone position with a pillow positioned underneath the abdomen. The left side of the lower back was prepped and draped in a sterile fashion using iodine x 3. Under fluoroscopy guidance, on an oblique view, the L3 through S1 vertebral bodies were visualized. The skin and subcutaneous tissue was anesthetized with approximately 10 mL of 1% lidocaine using a 25-gauge regular needle. Under direct visualization with fluoroscopy at approximately 25-degree angle, starting on the left L3, ending on the left S1 passing through the L4-L5 using a 20-gauge 15 cm with a 10 mm curved active tip radiofrequency ablation needle the needle passed through the skin. The tip of the needle was maneuvered and directed towards the superior and medial gutter of the transverse process at the vicinity of the medial branch. Once the tip of the needle was in contact with the bone, the needle pulled approximately 2 mm up the bone. The stylet of each needle was then removed. After negative aspiration of blood with CSF and confirmation of AP as well as oblique view, radiofrequency ablation probe was then inserted at each level. Impedance was then recorded at L3 to be 261, at L4 248, at L5 314, at S1 332 ohm. Motor-evoked potential was then initiated to 1.5 volt without any motor response at each corresponding level. The probe was then removed intact and a total of 6 mL preservative-free 1% lidocaine was injected in divided doses between those 4 levels after negative aspiration of blood with CSF. The radiofrequency ablation probe was then reinserted after confirmation of AP, oblique as well as lateral view. Radiofrequency ablation was then initiated to 80 degrees Celsius for 90 seconds at each level. Once concluded, the probe was then removed intact and a total of 6 mL of preservative-free 0.25% Marcaine with 40 mg Depo-Medrol was injected in divided doses between those 4 levels. The needles were then removed intact. The patient experienced no signs or symptoms of intrathecal, intravascular injection. The patient experienced no paraesthesia. The procedure was completed without any apparent difficulty, any complication. The patient appeared to tolerate well. Sensory as well as motor exam was unchanged from prior to procedure. ASSESSMENT AND PLAN: This is a 37-year-old female with lumbosacral spondylosis, lumbosacral degenerative disc disease, lumbar facet arthropathy, status post left-sided lumbar radiofrequency ablation of the medial branch L4 through S1. The patient will continue her current medications. The patient will follow up in approximately 2 weeks for reevaluation. Complications None
[2022-07-13 12:42] VITALS: BP 157/89
== END 2022-07-13 12:44 | disposition home or self-care (01) ==
LOC: SDC 09:33 → AC 09:34
PROVIDERS: Anesthesiology; Referring Provider Anesthesiology Pain Medicine; Visit Provider Anesthesiology Pain Medicine
PROC: (CPT 64635; principal; 2022-07-13 11:15)
DX: M47.817 Spondylosis without myelopathy or radiculopathy, lumbosacral region (principal); E11.9 Type 2 diabetes mellitus without complications; M51.37 Other intervertebral disc degeneration, lumbosacral region; M47.816 Spondylosis without myelopathy or radiculopathy, lumbar region; F41.9 Anxiety disorder, unspecified; F32.A Depression, unspecified; G89.29 Other chronic pain; M54.2 Cervicalgia; K21.9 Gastro-esophageal reflux disease without esophagitis; I10 Essential (primary) hypertension; F17.200 Nicotine dependence, unspecified, uncomplicated; Z79.899 Other long term (current) drug therapy; Z79.84 Long term (current) use of oral hypoglycemic drugs
CPT/HCPCS: 64635; 64636; 72100; 72110; 76000; 81025; 82962; J7120

== ENCOUNTER 2022-09-14 05:38 | Day surgery (SDC) | payer MEDICAID, SELFPAY ==
[2022-09-14] VITALS (7 sets, daily range): BP systolic 131–161; BP diastolic 79–100; PULSE 83–109; RESP 18–24; TEMP 36.1–36.6; O2SAT 97–99; BMI 55.5
--- NOTE | 2022-09-14 06:30 | RAD_ITS ---
STUDY: X-RAY - LUMBAR SPINE REASON FOR EXAM: Female, 37 years old. Intraprocedural digital documentation views of radiofrequency ablation at L4-L5 and L5-S1. TECHNIQUE: 6 intraprocedural documentation view(s) of the lumbar spine were obtained. COMPARISON: July 13, 2022 and January 26, 2022 FINDINGS: Intraprocedural images show placement of needles at L3, L4, L5 and S1 vertebral bodies on the left. RAD/Lumbar Spine 2 or 3 Views IMPRESSION: Intraprocedural images as described. Electronically Signed: Armen Ray, at 10:20 EDT ,
[2022-09-14] MEDS: Lactated Ringers 1,000 ML 15 ML IV (06:41)
[2022-09-14 06:45] LABS: Internal QC Validated? YES +Cl - CLEAR BKGD; Pregnancy, Urine Negative Negative
[2022-09-14 07:00] LABS: Bedside Glucose 154 mg/dL (74-106)
[2022-09-14] MEDS: MethylPREDNISolone Acetate 40 MG/ML Vial IM (07:42)
[2022-09-14] MEDS: Lidocaine 1% (20 ml mdv) 20 ML Vial (07:42)
[2022-09-14] MEDS: Bupivacaine 0.25% 30 ML Vial (07:42)
--- NOTE | 2022-09-14 07:55 | PCM.OPRPT ---
Report of Operation Date of Procedure: 09/14/22 Pre-Operative Diagnosis: Lumbosacral spondylosis, lumbosacral degenerative disc disease, lumbar facet arthropathy Post-Operative Diagnosis: Lumbosacral spondylosis, lumbosacral degenerative disc disease, lumbar facet arthropathy Surgery/Procedure Performed:: Right-sided lumbar radiofrequency ablation of the medial branch L4, L5, S1 Type of Anesthesia: MAC Estimated Blood Loss (mL): Minimal Description of Procedure: History and physical today was reviewed. Risks and benefits of procedure explained. The patient understood, agreed to the procedure and informed consent was obtained. IV inserted per routine protocol. The patient was taken to the operating room, placed in the prone position with a pillow positioned underneath the abdomen. The right side of the lower back was prepped and draped in a sterile fashion using iodine x 3. Under fluoroscopy guidance, on an oblique view, the L3 through S1 vertebral bodies were visualized. The skin and subcutaneous tissue was anesthetized with approximately 10 mL of 1% lidocaine using a 25-gauge regular needle. Under direct visualization with fluoroscopy at approximately 25-degree angle, starting on the right L3, ending on the right S1 passing through the L4-L5 using a 20-gauge 15 cm with a 10 mm curved active tip radiofrequency ablation needle the needle passed through the skin. The tip of the needle was maneuvered and directed towards the superior and medial gutter of the transverse process at the vicinity of the medial branch. Once the tip of the needle was in contact with the bone, the needle pulled approximately 2 mm up the bone. The stylet of each needle was then removed. After negative aspiration of blood with CSF and confirmation of AP as well as oblique view, radiofrequency ablation probe was then inserted at each level. Impedance was then recorded at L3 to be 300, at L4 263, at L5 321, at S1 354 ohm. Motor-evoked potential was then initiated to 1.5 volt without any motor response at each corresponding level. The probe was then removed intact and a total of 6 mL preservative-free 1% lidocaine was injected in divided doses between those 4 levels after negative aspiration of blood with CSF. The radiofrequency ablation probe was then reinserted after confirmation of AP, oblique as well as lateral view. Radiofrequency ablation was then initiated to 80 degrees Celsius for 90 seconds at each level. Once concluded, the probe was then removed intact and a total of 6 mL of preservative-free 0.25% Marcaine with 40 mg Depo-Medrol was injected in divided doses between those 4 levels. The needles were then removed intact. The patient experienced no signs or symptoms of intrathecal, intravascular injection. The patient experienced no paraesthesia. The procedure was completed without any apparent difficulty, any complication. The patient appeared to tolerate well. Sensory as well as motor exam was unchanged from prior to procedure. ASSESSMENT AND PLAN: This is a 37-year-old female with lumbosacral spondylosis, lumbosacral degenerative disc disease, lumbar facet arthropathy, status post right-sided radiofrequency ablation of the medial branch L through S1. The patient will continue her current medications. The patient will follow up in approximately 2 weeks for reevaluation. Complications None
== END 2022-09-14 08:52 | disposition home or self-care (01) ==
LOC: SDC 05:38 → AC 05:39
PROVIDERS: Anesthesiology; PCP Internal Medicine; Referring Provider Anesthesiology Pain Medicine; Visit Provider Anesthesiology Pain Medicine
PROC: (CPT 64635; principal; 2022-09-14 07:25)
DX: M46.96 Unspecified inflammatory spondylopathy, lumbar region (principal); E11.9 Type 2 diabetes mellitus without complications; M51.37 Other intervertebral disc degeneration, lumbosacral region; M47.817 Spondylosis without myelopathy or radiculopathy, lumbosacral region; F32.A Depression, unspecified; F41.9 Anxiety disorder, unspecified; I10 Essential (primary) hypertension; K21.9 Gastro-esophageal reflux disease without esophagitis; Z79.899 Other long term (current) drug therapy
CPT/HCPCS: 64635; 64636; 01992; 72100; 76000; 81025; 82962; J7120

== ENCOUNTER → 2022-09-17 | Outpatient (CLI) | payer MEDICAID, SELFPAY | END | disposition home or self-care (01) | LOC: SL 19:57 | PROVIDERS: PCP Internal Medicine; Visit Provider Nurse Practitioner | DX: G47.33 Obstructive sleep apnea (adult) (pediatric) (principal) | CPT/HCPCS: 95811 ==

== ENCOUNTER → 2022-12-31 | Outpatient (CLI) | payer MEDICAID, SELFPAY | END | disposition home or self-care (01) | LOC: SL 08:14 | PROVIDERS: PCP Internal Medicine; Visit Provider Nurse Practitioner | DX: Z46.89 Encounter for fitting and adjustment of other specified devices (principal) ==

== ENCOUNTER 2023-01-27 22:22 | Emergency (ER) | payer MEDICAID, SELFPAY ==
[2023-01-27 22:23] VITALS: BP 178/114; PULSE 116; RESP 15; TEMP 36.3; O2SAT 98; BMI 52.9
[2023-01-27 22:51] LABS: Bedside Glucose 311 mg/dL (74-106)
[2023-01-27 23:41] LABS: Bedside Glucose 330 mg/dL (74-106)
[2023-01-27] MEDS: 0.9% Normal Saline 1,000 ML 999 ML IV (23:51)
[2023-01-27] MEDS: Insulin Lispro 100 UNIT/ML INSULN.PEN 14 UNIT SC (23:52)
[2023-01-27 23:59] LABS: Mucous, Urine 0 SEEN /hpf (<or=2+); Red Blood Cells-Urine 0 SEEN /hpf (0-5); Squamous Epithelial Cells - UA 0 SEEN /hpf (5-10); White Blood Cells 0 SEEN /hpf (0-5)
[2023-01-28 00:01] LABS: Color, Urine Yellow (Yellow); Glucose, Dipstick 1000 mg/dl (Normal); Ketone-Dipstick 15 mg/dl (Negative); Leukocyte Esterase-Dipstick Negative /ul (Negative); Nitrite-Dipstick Negative (Negative); Occult Blood-Urine Negative /ul (Negative); Protein-Dipstick 15 mg/dl (Negative); Specific Gravity, Urine 1.015 (1.002-1.030); Urine Bilirubin Dipstick Negative (Negative); Urine Clarity Clear (Clear); Urine Urobilinogen Normal (Normal); Urine pH 6.5 (5.0 - 8.0)
[2023-01-28 00:03] LABS: Absolute Lymphocyte Count 7.01 X10^3/uL (0.83-4.51); Absolute Neutrophil Count 8.3 X10^3/uL (2.0-7.7); Basophil# 0.14 X10^3/uL; Basophil% 0.9 % (0-1); Hematocrit 46.7 % (37-47); Hemoglobin 16.1 g/dL (12.0-15.0); Lymphocyte # 7.01 X10^3/ul (0.83-4.51); Lymphocyte % 42.8 % (19-41); Mean Corp Hgb Conc 34.5 g/dL (32-36); Mean Corpuscular Hgb 30.6 pg (27.0-32.0); Mean Corpuscular Volume 88.8 fL (81-99); Monocyte# 0.86 X10^3/uL; Monocyte% 5.3 % (0-10); NRBC Flagged by Analyzer 0 % (0-5); Neutrophil # 8.25 X10^3/uL (2.7-7.7); Neutrophil % 50.3 % (47-70); POSITIVE DIFFERENTIAL YES; POSITIVE MORPHOLOGY YES; Platelet Count 409 K/mm3 (150-450); RBC Distribution Width CV 12.2 % (11.6-14.6); RBC Distribution Width SD 39.7 fl (35.1-43.9); Red Blood Count 5.26 M/mm3 (4.2-5.4); White Blood Count 16.4 K/mm3 (4.4-11.0)
[2023-01-28 00:05] LABS: Differential Indicated SCAN CRITERIA MET
[2023-01-28 00:07] LABS: Bacteria RARE /hpf (None Seen)
[2023-01-28 00:15] LABS: Anion Gap 8 (5-15); BUN 10 mg/dL (7-18); BUN/Creat Ratio 12.2 RATIO (10-20); Calcium,Total 9.6 mg/dL (8.5-10.1); Chloride 106 mmol/L (98-107); Creatinine, Serum 0.82 mg/dL (0.55-1.02); EST Glomerular Filtration Rate 84 mL/min (>60); Est Glom Filt Rate - Afr Amer 101 mL/min (>60); Estimated Creatinine Clearance 92.23 ml/min; Glucose 297 mg/dL (74-106); Potassium 3.7 mmol/L (3.5-5.1); Sodium Level 138 mmol/L (136-145)
[2023-01-28 00:26] LABS: Differential Comment SCANNED; Reactive Lymphocyte 1+
--- NOTE | 2023-01-28 01:15 | EX.ED.DYSGE1 ---
HPI History of Present Illness Chief Complaint: Hyperglycemia Informant: patient Narrative Narrative: Patient states she felt nauseated earlier which made her check her blood sugar and it was 400, and this is what brought her to the emergency department. She is a type II diabetic, she states she has eaten more sugar today than usual but she has had polyuria and polydipsia for maybe 2 weeks, and that is about how long ago the last time she checked her blood sugar was. She states she was accidentally out of her Jardiance for about 4 days but now she has it. She has been taking her other diabetes medications. She denies any recent illness. [facility] Medical History Anxiety Back pain Balance problem BiPAP (biphasic positive airway pressure) dependence Blister Cardiology follow-up encounter Chest pain Chronic neck and back pain Depression Diabetes Dietary restriction Fatigue Fibromyalgia Gastric reflux History of edema History of pain when walking Hypertension Leg cramps Marijuana use OCD (obsessive compulsive disorder) PTSD (post-traumatic stress disorder) Shortness of breath on exertion Smoker Ulnar nerve entrapment Wears glasses Home Medications baclofen 10 mg tablet 1 tab PO TID 11/17/19 [History Last Taken Unknown] nabumetone 500 mg tablet 500 mg PO BID 11/17/19 [History Last Taken Unknown] buspirone 10 mg tablet 15 mg PO TID 02/12/20 [History Last Taken Unknown] clonidine HCl 0.1 mg tablet 0.1 mg PO DAILY 02/21/21 [History Last Taken 01/26/22 0.1 mg] lisinopril 10 mg tablet 10 mg PO DAILY 02/21/21 [History Last Taken 01/26/22 10 mg] pantoprazole 20 mg tablet,delayed release (Protonix) 40 mg PO DAILY 03/02/21 [History Last Taken 01/26/22 40 mg] vortioxetine 20 mg tablet (Trintellix) 20 mg PO DAILY 03/02/21 [History Last Taken Unknown] dapagliflozin propanediol 5 mg tablet (Farxiga) 5 mg PO DAILY 07/23/21 [History Last Taken Unknown] hydrocodone-acetaminophen 5-325mg 5mg-325mg 1 tab PO Q4H PRN PRN Pain 2 days #8 TABLETS 10/12/21 [Rx Last Taken Unknown] divalproex 500 mg tablet,delayed release (Depakote) 500 mg PO BID 11/07/21 [History Last Taken Unknown] aripiprazole 10 mg tablet 20 mg PO DAILY 01/27/23 [History Last Taken Unknown] Allergy/AdvReac Type Severity Reaction Status Date / Time adhesive tape Allergy BLISTERS Verified 01/27/23 22:29 gabapentin Allergy not alert Verified 01/27/23 22:29 amitriptyline AdvReac NEEDS Verified 01/27/23 22:29 FOLLOW-UP duloxetine [From Cymbalta] AdvReac NEEDS Verified 01/27/23 22:29 FOLLOW-UP mirtazapine [From Remeron] AdvReac NEEDS Verified 01/27/23 22:29 FOLLOW-UP Surgical History History of appendectomy History of tonsillectomy Hx of cholecystectomy Hx of dilation and curettage Social History Smoking Status: Current every day smoker tobacco type: cigarettes ROS ROS ED Constitutional Constitutional ED: Denies chills or fever(s) Eyes Eyes: Denies change in vision or diplopia ENT ENT ED: Denies rhinorrhea or sore throat Cardiovascular Cardiovascular: Denies chest pain or palpitations Respiratory/Chest Respiratory/Chest: Denies cough or dyspnea Gastrointestinal Gastrointestinal: Denies abdominal pain, diarrhea, nausea or vomiting Genitourinary Genitourinary ED: Reports urinary frequency; Denies dysuria or hematuria Musculoskeletal Musculoskeletal: Denies back pain or neck pain Integumentary Denies abscess or rash Neurologic Neurologic: Denies headache(s), paresthesias or weakness Psychiatric Psychiatric: Denies anxiety or suicidal thoughts Endocrine Endocrinology: Reports polydipsia and polyuria EXAM Physical Exam Const Vital Signs: 01/27/23 22:23 01/27/23 23:15 Temperature 97.3 F L Temperature Source Temporal Pulse Rate 116 H Respiratory Rate 15 Respiratory Effort Normal Non-Labored Respiratory Pattern Normal Blood Pressure 178/114 H Blood Pressure Mean 135 Pulse Ox 98 Oxygen Delivery Method Room Air Positive well nourished, well developed and obese General Appearance ED: well developed and NAD Nutritional Appearance: obese HEENT Reports moist mucous membranes normocephalic and atraumatic Eyes PERRL and EOMs intact bilaterally Neck full ROM and supple Resp normal respiratory effort and clear to auscultation bilaterally Cardio regular rate, regular rhythm and no murmurs GI non-tender and non-distended Auscultation: normoactive bowel sounds Palpation: soft Back/Spine no CVA tenderness General Back: other FROM Extremity normal to inspection General Extremety ED: Negative for edema, pulses abnormal or tenderness General Extremity: Negative for edema or pulses abnormal Neuro oriented x3, CN's II-XII intact bilaterally and no sensory deficits noted Sensorium / Orientation: awake and alert Motor Exam: strength 5/5 throughout Psych mental status grossly normal Skin no rashes or lesions noted and no wounds MDM MDM MDM Narrative Medical decision making narrative: Basic labs and urinalysis were obtained while we gave her a liter of IV fluids and 14 units of subcutaneous insulin lispro. She felt much better afterwards, her blood sugar came down to 193, and she was allowed to go home. Urine shows no signs of infection, her urinary frequency/polyuria is due to glycosuria, she does have a nonspecific leukocytosis, I do not think that needs to be worked up more emergently right now since she has no other symptoms. We did recheck her blood sugar, was very high 178/114 at triage, now it is 149/99. Advised to follow-up with her doctor. Lab Data Attestation: I reviewed the patient's lab results. Labs: Laboratory Results - last 24 hr 01/27/23 01/27/23 01/27/23 22:32 23:22 23:50 WBC RBC Hgb Hct MCV MCH MCHC RDW Std Deviation RDW Coeff of Domingo Plt Count MPV Immature Gran % (Auto) Neut % (Auto) Lymph % (Auto) Jefferson % (Auto) Eos % (Auto) Baso % (Auto) Absolute Neuts (auto) Absolute Lymphs (auto) Nucleated RBC % Differential Comment Reactive Lymphocytes Sodium Potassium Chloride Carbon Dioxide Anion Gap BUN Creatinine Estim Creat Clear Calc Est GFR (MDRD) Af Amer Est GFR (MDRD) Non-Af BUN/Creatinine Ratio Glucose Calcium Urine Color Yellow Urine Clarity Clear Urine pH 6.5 Ur Specific [place] 1.015 Urine Protein 15 H Urine Glucose (UA) 1000 H Urine Ketones 15 H Urine Occult Blood Negative Urine Nitrite Negative Urine Bilirubin Negative Urine Urobilinogen Normal Ur Leukocyte Esterase Negative Urine RBC 0 SEEN Urine WBC 0 SEEN Ur Squamous Epith Cells 0 SEEN Urine Bacteria RARE Urine Mucus 0 SEEN POC Glucose 311 H 330 H 01/27/23 23:55 WBC 16.4 H RBC 5.26 Hgb 16.1 H Hct 46.7 MCV 88.8 MCH 30.6 MCHC 34.5 RDW Std Deviation 39.7 RDW Coeff of Domingo 12.2 Plt Count 409 MPV 10.0 Immature Gran % (Auto) 0.700 Neut % (Auto) 50.3 Lymph % (Auto) 42.8 H Jefferson % (Auto) 5.3 Eos % (Auto) 0.0 Baso % (Auto) 0.9 Absolute Neuts (auto) 8.3 H Absolute Lymphs (auto) 7.01 H Nucleated RBC % 0 Differential Comment SCANNED Reactive Lymphocytes 1+ Sodium 138 Potassium 3.7 Chloride 106 Carbon Dioxide 24.0 Anion Gap 8 BUN 10 Creatinine 0.82 Estim Creat Clear Calc 92.23 Est GFR (MDRD) Af Amer 101 Est GFR (MDRD) Non-Af 84 BUN/Creatinine Ratio 12.2 Glucose 297 H Calcium 9.6 Urine Color Urine Clarity Urine pH Ur Specific [place] Urine Protein Urine Glucose (UA) Urine Ketones Urine Occult Blood Urine Nitrite Urine Bilirubin Urine Urobilinogen Ur Leukocyte Esterase Urine RBC Urine WBC Ur Squamous Epith Cells Urine Bacteria Urine Mucus POC Glucose Discharge Plan Triage Chief Complaint: Hyperglycemia ED Provider: Richard Heart Dx/Rx/DC Orders Clinical Impression: Hyperglycemia due to type 2 diabetes mellitus Instructions: ED Diabetic Hyperglycemia Prescriptions: No Action baclofen 10 mg tablet 1 tab PO TID Patient Comments: TAKE 1 TABLET two - three times daily as needed for spasms. nabumetone 500 MG tablet 500 mg PO BID Hold Instructions: Order Completed buspirone 10 MG tablet 15 mg PO TID clonidine HCl 0.1 mg Tablet 0.1 mg PO DAILY lisinopril 10 mg Tablet 10 mg PO DAILY pantoprazole [Protonix] 20 mg Tablet,Delayed Release (Dr/Ec) 40 mg PO DAILY Trintellix 20 mg tablet 20 mg PO DAILY Patient Comments: Take 1 tablet by mouth once a day Farxiga 5 mg Tablet 5 mg PO DAILY hydrocodone-acetaminophen [hydrocodone-acetaminophen] 1 TABLET tablet 1 tab PO Q4H PRN PRN (Reason: Pain) 2 Days Qty: 8 0RF divalproex [Depakote] 500 mg Tablet,Delayed Release (Dr/Ec) 500 mg PO BID aripiprazole 10 mg tablet 20 mg PO DAILY Patient Comments: TAKE 1 TABLET BY MOUTH EVERY DAY Primary Care Provider: Denis Garcia Referrals: Denis Garcia MD [Primary Care Provider] - (call for follow up appt) Disposition Disposition: Home, Self Care
[2023-01-28 01:16] VITALS: BP 149/99; PULSE 93; RESP 15; O2SAT 98
[2023-01-28 01:18] VITALS: BP 149/99; PULSE 93; RESP 15; O2SAT 98
[2023-01-28 01:28] LABS: Bedside Glucose 193 mg/dL (74-106)
== END 2023-01-28 01:24 | disposition home or self-care (01) ==
PROVIDERS: Emergency Provider Emergency Medicine; PCP Internal Medicine; Visit Provider Emergency Medicine
DX: E11.65 Type 2 diabetes mellitus with hyperglycemia (principal); Z68.43 Body mass index [BMI] 50.0-59.9, adult; Z79.84 Long term (current) use of oral hypoglycemic drugs; F17.210 Nicotine dependence, cigarettes, uncomplicated; I10 Essential (primary) hypertension; E66.9 Obesity, unspecified; Z79.899 Other long term (current) drug therapy
CPT/HCPCS: 80048; 81001; 82962; 85025; 99283; J7030; A4216

== ENCOUNTER 2023-03-15 06:29 | Day surgery (SDC) | payer MEDICAID, SELFPAY ==
[2023-03-15 06:54] LABS: Internal QC Validated? YES +Cl - CLEAR BKGD
[2023-03-15 06:55] LABS: Pregnancy, Urine Negative Negative
--- NOTE | 2023-03-15 07:00 | RAD_ITS ---
HISTORY: RADIO FREQ ABLATION, L4-S1,LEFT -- -- 29.6 SEC, 16.04 MGY, 6 IMAGES COMPARISON: 07/13/2022 TECHNIQUE: A total of 6 fluoroscopic images were saved without a radiologist present. FINDINGS: Images demonstrate sequential placement of percutaneous radiofrequency ablation leads. . Total fluoroscopy time: 29.6 seconds Cumulative air kerma: 16.04 mGy RAD/Lumbar Spine 2 or 3 Views IMPRESSION: Fluoroscopic assistance for radiofrequency ablation.. Please see operative report for real-time findings. Electronically Signed: Phi Malloy MD at 8:44 EDT ,
[2023-03-15 07:04] VITALS: BP 143/99; PULSE 98; RESP 18; TEMP 36.2; O2SAT 96; BMI 52.0
[2023-03-15] MEDS: Lactated Ringers 1,000 ML 15 ML IV (07:04)
[2023-03-15 07:28] LABS: Bedside Glucose 189 mg/dL (74-106)
[2023-03-15] MEDS: Lidocaine 1% (30 ml sdv) 30 ML Vial (08:05)
[2023-03-15] MEDS: Bupivacaine 0.25% 30 ML Vial (08:06)
[2023-03-15] MEDS: MethylPREDNISolone Acetate 40 MG/ML Vial IM (08:06)
[2023-03-15 08:21] VITALS: BP 143/99; BP 145/108; PULSE 111; RESP 16; TEMP 36.3; O2SAT 99
[2023-03-15 08:25] VITALS: BP 136/104; BP 143/99; PULSE 113; RESP 16; O2SAT 99
--- NOTE | 2023-03-15 08:28 | PCM.OPRPT ---
Report of Operation Date of Procedure: 03/15/23 Pre-Operative Diagnosis: Lumbosacral spondylosis, lumbosacral degenerative disc disease, lumbar facet arthropathy Post-Operative Diagnosis: Lumbosacral spondylosis, lumbosacral degenerative disc disease, lumbar facet arthropathy Surgery/Procedure Performed:: Left-sided lumbar radiofrequency ablation of the medial branch L4, L5, S1 Type of Anesthesia: MAC Estimated Blood Loss (mL): Minimal Description of Procedure: History and physical today was reviewed. Risks and benefits of procedure explained. The patient understood, agreed to the procedure and informed consent was obtained. IV inserted per routine protocol. The patient was taken to the operating room, placed in the prone position with a pillow positioned underneath the abdomen. The left side of the lower back was prepped and draped in a sterile fashion using iodine x 3. Under fluoroscopy guidance, on an oblique view, the L3 through S1 vertebral bodies were visualized. The skin and subcutaneous tissue was anesthetized with approximately 10 mL of 1% lidocaine using a 25-gauge regular needle. Under direct visualization with fluoroscopy at approximately 25-degree angle, starting on the left L3, ending on the left S1 passing through the L4-L5 using a 20-gauge 15 cm with a 10 mm curved active tip radiofrequency ablation needle the needle passed through the skin. The tip of the needle was maneuvered and directed towards the superior and medial gutter of the transverse process at the vicinity of the medial branch. Once the tip of the needle was in contact with the bone, the needle pulled approximately 2 mm up the bone. The stylet of each needle was then removed. After negative aspiration of blood with CSF and confirmation of AP as well as oblique view, radiofrequency ablation probe was then inserted at each level. Impedance was then recorded at L3 to be 334, at L4 233, at L5 252, at S1 317 ohm. Motor-evoked potential was then initiated to 1.5 volt without any motor response at each corresponding level. The probe was then removed intact and a total of 6 mL preservative-free 1% lidocaine was injected in divided doses between those 4 levels after negative aspiration of blood with CSF. The radiofrequency ablation probe was then reinserted after confirmation of AP, oblique as well as lateral view. Radiofrequency ablation was then initiated to 80 degrees Celsius for 90 seconds at each level. Once concluded, the probe was then removed intact and a total of 6 mL of preservative-free 0.25% Marcaine with 40 mg Depo-Medrol was injected in divided doses between those 4 levels. The needles were then removed intact. The patient experienced no signs or symptoms of intrathecal, intravascular injection. The patient experienced no paraesthesia. The procedure was completed without any apparent difficulty, any complication. The patient appeared to tolerate well. Sensory as well as motor exam was unchanged from prior to procedure. ASSESSMENT AND PLAN: This is a 38-year-old female with lumbosacral spondylosis, lumbosacral degenerative disc disease, lumbar facet arthropathy, status post left-sided lumbar radiofrequency ablation of the medial branch L4 through S1. The patient will continue her current medications. The patient will follow up in approximately 2 weeks for reevaluation. Complications None
[2023-03-15 08:30] VITALS: BP 128/104; BP 143/99; PULSE 100; RESP 20; O2SAT 98
[2023-03-15 08:35] VITALS: BP 116/83; BP 143/99; PULSE 96; RESP 16; TEMP 36.3; O2SAT 98
[2023-03-15 08:53] VITALS: BP 115/68; BP 143/99; PULSE 92; RESP 16; O2SAT 98
== END 2023-03-15 08:57 | disposition home or self-care (01) ==
LOC: SDC 06:30 → AC 06:32
PROVIDERS: Anesthesiology; PCP Internal Medicine; Referring Provider Anesthesiology Pain Medicine; Visit Provider Anesthesiology Pain Medicine
PROC: (CPT 64635; principal; 2023-03-15 07:55)
DX: M51.37 Other intervertebral disc degeneration, lumbosacral region (principal); M46.97 Unspecified inflammatory spondylopathy, lumbosacral region; E11.9 Type 2 diabetes mellitus without complications; M47.817 Spondylosis without myelopathy or radiculopathy, lumbosacral region; F41.9 Anxiety disorder, unspecified; F32.A Depression, unspecified; I10 Essential (primary) hypertension; F17.200 Nicotine dependence, unspecified, uncomplicated; Z79.899 Other long term (current) drug therapy; Z79.84 Long term (current) use of oral hypoglycemic drugs
CPT/HCPCS: 64635; 64636; 01992; 72100; 76000; 81025; 82962; J7120

== ENCOUNTER 2023-06-14 06:52 | Day surgery (SDC) | payer MEDICAID, SELFPAY ==
[2023-06-14 07:19] VITALS: BP 128/79; PULSE 109; RESP 18; TEMP 36.4; O2SAT 96; BMI 52.1
[2023-06-14 07:23] LABS: Internal QC Validated? YES +Cl - CLEAR BKGD; Pregnancy, Urine Negative Negative; Record Kit Lot#,Urine Preg HCG0000667200
--- NOTE | 2023-06-14 07:30 | RAD_ITS ---
PROCEDURE: Right lumbar radiofrequency ablation. DATE OF EXAMINATION: June 14, 2023. INDICATION: Female, 38 years old. Chronic low back pain. FLUOROSCOPY TIME (if supplied): (21.6 seconds) minutes/seconds. 20.5 mGy. 11 fluoroscopic images were obtained. RAD/Lumbar Spine 2 or 3 Views IMPRESSION: Intraoperative fluoroscopic services provided for right lumbar radiofrequency ablation. Electronically Signed: Sarwat Wheat MD at 11:13 EST ,
[2023-06-14 07:34] LABS: Bedside Glucose 203 mg/dL (74-106)
[2023-06-14] MEDS: MethylPREDNISolone Acetate 40 MG/ML Vial (08:37)
[2023-06-14] MEDS: Lidocaine 1% (30 ml sdv) 30 ML Vial (08:37)
[2023-06-14 08:55] VITALS: BP 128/79; PULSE 110; RESP 18; TEMP 36.1; O2SAT 98
--- NOTE | 2023-06-14 08:57 | PCM.OPRPT ---
Report of Operation Date of Procedure: 06/14/23 Pre-Operative Diagnosis: Lumbosacral spondylosis, lumbosacral degenerative disc disease, lumbar facet arthropathy Post-Operative Diagnosis: Lumbosacral spondylosis, lumbosacral degenerative disc disease, lumbar facet arthropathy Surgery/Procedure Performed:: Right-sided lumbar radiofrequency ablation of the medial branch L4, L5, S1 Type of Anesthesia: MAC Estimated Blood Loss (mL): Minimal Description of Procedure: History and physical today was reviewed. Risks and benefits of procedure explained. The patient understood, agreed to the procedure and informed consent was obtained. IV inserted per routine protocol. The patient was taken to the operating room, placed in the prone position with a pillow positioned underneath the abdomen. The right side of the lower back was prepped and draped in a sterile fashion using iodine x 3. Under fluoroscopy guidance, on an oblique view, the L3 through S1 vertebral bodies were visualized. The skin and subcutaneous tissue was anesthetized with approximately 10 mL of 1% lidocaine using a 25-gauge regular needle. Under direct visualization with fluoroscopy at approximately 25-degree angle, starting on the right L3, ending on the right S1 passing through the L4-L5 using a 20-gauge 15 cm with a 10 mm curved active tip radiofrequency ablation needle the needle passed through the skin. The tip of the needle was maneuvered and directed towards the superior and medial gutter of the transverse process at the vicinity of the medial branch. Once the tip of the needle was in contact with the bone, the needle pulled approximately 2 mm up the bone. The stylet of each needle was then removed. After negative aspiration of blood with CSF and confirmation of AP as well as oblique view, radiofrequency ablation probe was then inserted at each level. Impedance was then recorded at L3 to be 249, at L4 234, at L5 296, at S1 245 ohm. Motor-evoked potential was then initiated to 1.5 volt without any motor response at each corresponding level. The probe was then removed intact and a total of 6 mL preservative-free 1% lidocaine was injected in divided doses between those 4 levels after negative aspiration of blood with CSF. The radiofrequency ablation probe was then reinserted after confirmation of AP, oblique as well as lateral view. Radiofrequency ablation was then initiated to 80 degrees Celsius for 90 seconds at each level. Once concluded, the probe was then removed intact and a total of 6 mL of preservative-free 0.25% Marcaine with 40 mg Depo-Medrol was injected in divided doses between those 4 levels. The needles were then removed intact. The patient experienced no signs or symptoms of intrathecal, intravascular injection. The patient experienced no paraesthesia. The procedure was completed without any apparent difficulty, any complication. The patient appeared to tolerate well. Sensory as well as motor exam was unchanged from prior to procedure. ASSESSMENT AND PLAN: This is a 38-year-old female with lumbosacral spondylosis, lumbosacral degenerative disc disease, lumbar facet arthropathy, status post right-sided radiofrequency ablation of the medial branch L4 through S1. The patient will continue her current medications. The patient will follow up in approximately 2 weeks for reevaluation. Complications None
[2023-06-14 09:00] VITALS: BP 128/79; BP 133/76; PULSE 115; RESP 18; O2SAT 99
[2023-06-14 09:05] VITALS: BP 126/87; BP 128/79; PULSE 102; RESP 18; TEMP 36.6; O2SAT 98
[2023-06-14 09:16] VITALS: BP 128/79
== END 2023-06-14 09:18 | disposition home or self-care (01) ==
LOC: SDC 06:53 → AC 06:54
PROVIDERS: Anesthesiology; PCP Internal Medicine; Referring Provider Anesthesiology Pain Medicine; Visit Provider Anesthesiology Pain Medicine
PROC: (CPT 64635; principal; 2023-06-14 08:25)
DX: M47.817 Spondylosis without myelopathy or radiculopathy, lumbosacral region (principal); M46.96 Unspecified inflammatory spondylopathy, lumbar region; E11.9 Type 2 diabetes mellitus without complications; M51.37 Other intervertebral disc degeneration, lumbosacral region; F41.9 Anxiety disorder, unspecified; F32.A Depression, unspecified; K21.9 Gastro-esophageal reflux disease without esophagitis; I10 Essential (primary) hypertension; F17.200 Nicotine dependence, unspecified, uncomplicated; Z79.84 Long term (current) use of oral hypoglycemic drugs; Z79.899 Other long term (current) drug therapy
CPT/HCPCS: 64635; 64636; 01992; 72100; 76000; 81025; 82962; J7120

== ENCOUNTER 2023-08-23 06:56 | Emergency (ER) | payer MEDICAID, SELFPAY ==
[2023-08-23 06:57] VITALS: BP 119/75; PULSE 112; RESP 18; TEMP 35.8; O2SAT 98; BMI 52.2
--- NOTE | 2023-08-23 07:10 | ED.VIS.FALL ---
HPI HPI - Fall History of Present Illness Chief Complaint: Fall Informant: patient Occured/Mechanism Occurred: Days (2) Mechanism/Context: Yes slip Pain/Injury Location: Left lower lumbar Pain Location: back Quality of Pain: Dull and Aching Worsened by: Nothing Relieved by: Heat Associated Symptoms Associated Symptoms: Positive for Weakness; Negative for Parasthesias, Loss of function, Inability to ambulate, Loss of consciousness or Amnesia Narrative Narrative: Patient presents with back pain that became worse after a fall 2 days ago. Patient states her leg gave out while she was in the shower and she slipped and fell. Patient states her pain is mainly over the left lower lumbar area. Patient describes it as dull and aching. Patient states she was applying ice and heat. Patient states that he felt better. Patient states she was taking her chronic pain medications with minimal relief. Patient admits to some radiation of pain to her left calf. Patient denies any bowel or bladder changes. Patient denies any saddle anesthesia. [facility] Medical History Anxiety Back pain Balance problem BiPAP (biphasic positive airway pressure) dependence Cardiology follow-up encounter Chest pain Chronic neck and back pain Depression Diabetes Dietary restriction Fatigue Fibromyalgia Gastric reflux History of edema History of pain when walking Hypertension Leg cramps Marijuana use OCD (obsessive compulsive disorder) PTSD (post-traumatic stress disorder) Shortness of breath on exertion Smoker Ulnar nerve entrapment Wears glasses Home Medications lisinopril 10 mg tablet 10 mg PO DAILY 02/21/21 [History Last Taken 01/26/22 10 mg] pantoprazole 20 mg tablet,delayed release (Protonix) 40 mg PO DAILY 03/02/21 [History Last Taken 01/26/22 40 mg] dapagliflozin propanediol 5 mg tablet (Farxiga) 15 mg PO DAILY 07/23/21 [History Last Taken Unknown] aripiprazole 10 mg tablet 20 mg PO DAILY 01/27/23 [History Last Taken Unknown] glipizide 5 mg tablet 5 mg PO DAILY 03/11/23 [History Last Taken Unknown] hydrocodone-acetaminophen 5-325mg 5mg-325mg 1 tab PO BID PRN PRN Pain 03/11/23 [History Last Taken Unknown] hydroxyzine HCl 25 mg tablet 50 mg PO TID PRN 03/11/23 [History Last Taken Unknown] rosuvastatin 20 mg tablet 20 mg PO DAILY 03/11/23 [History Last Taken Unknown] trazodone 150 mg tablet 150 mg PO QHS PRN insomnia 06/14/23 [History Last Taken Unknown] carbamazepine 200 mg tablet,extended release,12 hr 200 mg PO DAILY 08/23/23 [History Last Taken Unknown] tizanidine 4 mg tablet 4 mg PO TID PRN back 08/23/23 [History Last Taken Unknown] Allergy/AdvReac Type Severity Reaction Status Date / Time adhesive tape Allergy BLISTERS Verified 08/23/23 06:57 gabapentin Allergy not alert Verified 08/23/23 06:57 amitriptyline AdvReac NEEDS Verified 08/23/23 06:57 FOLLOW-UP duloxetine [From Cymbalta] AdvReac NEEDS Verified 08/23/23 06:57 FOLLOW-UP mirtazapine [From Remeron] AdvReac NEEDS Verified 08/23/23 06:57 FOLLOW-UP Surgical History History of appendectomy History of tonsillectomy Hx of cholecystectomy Hx of dilation and curettage Social History Smoking Status: Current every day smoker tobacco type: cigarettes ROS ROS ED Constitutional Constitutional ED: Denies chills or fever(s) Eyes Eyes: Denies blurry vision or change in vision ENT ENT ED: Denies rhinorrhea or sore throat Cardiovascular Cardiovascular: Denies chest pain or palpitations Respiratory/Chest Respiratory/Chest: Denies cough or dyspnea Gastrointestinal Gastrointestinal: Denies nausea or vomiting Genitourinary Genitourinary ED: Denies dysuria or hematuria Musculoskeletal Musculoskeletal: Reports back pain; Denies neck pain Integumentary Denies abscess or rash Neurologic Neurologic: Denies headache(s) or weakness Allergic/Immunologic Allergic/Immunologic ED: Denies mouth swelling or urticaria EXAM Physical Exam Const Vital Signs: 08/23/23 06:57 08/23/23 07:02 Temperature 96.5 F L Temperature Source Temporal Pulse Rate 112 H Respiratory Rate 18 Blood Pressure 119/75 Blood Pressure Mean 89 Pulse Ox 98 Oxygen Delivery Method Room Air Room Air Positive well nourished, well developed and obese General Appearance ED: well developed and NAD Nutritional Appearance: obese HEENT Reports normocephalic atraumatic Neck full ROM and supple Back/Spine Lumbar Spine / Lower Back: lumbar spinal tenderness, paraspinal muscle tenderness left and straight leg raise negative bilaterally Extremity Extremity Narrative: There is some mild tenderness over the left calf. There is no edema noted. Pedal pulses are equal bilaterally. Strength is 5/5 bilaterally in lower extremities. There are no sensory deficits noted. Neuro oriented x3, CN's II-XII intact bilaterally, moves all extremities, no focal motor deficits and no sensory deficits noted [place] Coma Scale: document GCS findings Spontaneous Obeys Commands Oriented 15 Sensorium / Orientation: alert Motor Exam: strength 5/5 throughout MDM MDM MDM Narrative Medical decision making narrative: Differential diagnosis includes lumbosacral strain, compression fracture, and DVT. Venous duplex of the left lower extremity will be obtained to assess for DVT. Lumbar spine x-rays will be obtained to assess for compression fracture. Radiography Diagnostic Testing: Venous duplex of the left lower extremity was obtained. There is no evidence of DVT. X-rays of the lumbar spine were obtained. There are 2 views. On my independent interpretation, there is no acute fracture or spondylolisthesis. Radiologist also interpreted the x-rays and agrees. Treatment and Re-Evaluation Narrative: Patient was given injection of morphine here. Patient was advised of her findings. Patient was instructed to continue her previous medications as prescribed by pain management. Patient was instructed to follow-up with her pain management physician in 5 to 7 days. Patient understood and was agreeable with the plan. All questions were answered. Discharge Plan Triage Chief Complaint: Fall ED Provider: Filemon Ortiz Dx/Rx/DC Orders Clinical Impression: Fall, Acute lumbosacral myofascial strain Instructions: ED Back Sprain/Strain Prescriptions: No Action lisinopril 10 mg Tablet 10 mg PO DAILY pantoprazole [Protonix] 20 mg Tablet,Delayed Release (Dr/Ec) 40 mg PO DAILY dapagliflozin propanediol [Farxiga] 5 mg Tablet 15 mg PO DAILY aripiprazole 10 mg tablet 20 mg PO DAILY Patient Comments: TAKE 1 TABLET BY MOUTH EVERY DAY hydroxyzine HCl 25 mg tablet 50 mg PO TID PRN Patient Comments: TAKE 1 TABLET BY MOUTH THREE TIMES A DAY NEEDED glipizide 5 mg tablet 5 mg PO DAILY hydrocodone-acetaminophen [hydrocodone-acetaminophen] 1 TABLET tablet 1 tab PO BID PRN PRN (Reason: Pain) rosuvastatin 20 mg tablet 20 mg PO DAILY Patient Comments: TAKE 1 TABLET BY MOUTH EVERY DAY IN THE MORNING trazodone 150 mg tablet 150 mg PO QHS PRN (Reason: insomnia) tizanidine 4 mg tablet 4 mg PO TID PRN Patient Comments: TAKE 1 TABLET BY MOUTH THREE TIMES DAILY NEEDED for SPASM carbamazepine 200 mg tablet extended release 12 hr 200 mg PO DAILY Patient Comments: TAKE 1 TABLET BY MOUTH TWICE A DAY Primary Care Provider: Denis Garcia Referrals: Denis Garcia MD [Primary Care Provider] - 5-7 Days Cas Leavitt MD [Med Staff - Active Staff] - 3-5 Days Disposition Disposition: Home, Self Care
--- OUTSIDE RECORDS SUMMARY | 2023-08-23 07:25 | XMS RPT_ITS | CCD ---
Author Name Unknown Address [address] [facility] [address] [place] [address] Organization [facility] Care Team Providers Care 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 Name Role Phone Pari Avila R Unavailable Unavailable PROVIDER, UNKNOWN Unavailable Unavailable PavTammie saeedfer R Unavailable Unavailable CHRISSY THORPE Unavailable Unavailable PROVIDER, UNKNOWN Unavailable Unavailable PavelTammie reyesfer R Unavailable Unavailable CHRISSY THORPE Unavailable Unavailable PROVIDER, UNKNOWN Unavailable Unavailable PavTammie saeedfer R Unavailable Unavailable MARTIN GARCIA Unavailable Unavailable OCAMPO, LENA S Unavailable Unavailable RICHARD SALAS Unavailable Unavailable RICHARD SALAS Unavailable Unavailable OCAMPO, LENA S Unavailable Unavailable OCAMPO, LENA S Unavailable Unavailable Venkata, Achal MRadha Unavailable Unavailable Venkata, Achal MRadha Unavailable Unavailable Foorsov, Denis Unavailable Unavailable Foorsov, Denis Unavailable Unavailable Pavelko, Pari R Unavailable Unavailable Pavelko, Pari R Unavailable Unavailable Foorsov, Denis Unavailable Unavailable Foorsov, Denis Unavailable Unavailable Pavelko, Pari R Unavailable Unavailable Valentine Ackerman Unavailable Unavailable AckermanValentine roper A Unavailable Unavailable Pavelko, Pari R Unavailable Unavailable Pavelamy, Pari R Unavailable Unavailable Lucio Muniz Unavailable Unavailable Lucio Muniz Unavailable Unavailable Pari Avila R Unavailable Unavailable Lucio Muniz Unavailable Unavailable Lucio Muniz Unavailable Unavailable Pari Avila Unavailable Unavailable Pari Noyola Primary Care Provider Lucio Muniz Unavailable Unavailable Pari Noyola Unavailable Unavailable Denis Chaudhari Unavailable Unavailable Unavailable Unavailable Unavailable Pari Noyola MD Primary Care Provider [phone] Pari Noyola MD Primary Care Provider Pari Noyola MD Primary Care Provider PROVIDER, UNKNOWN Referring Unavailable Jazmín, Pari Primary Care Unavailable COBY WHITT Attending Unavailable Jazmín, Pari Primary Care Unavailable PROVIDER, UNKNOWN Referring Unavailable Pari Noyola Attending Unavailable PROVIDER, UNKNOWN Referring Unavailable Salome Mac Attending Unavailable Jazmín, Pari Primary Care Unavailable Jazmín, Pari Primary Care Unavailable PROVIDER, UNKNOWN Referring Unavailable Salome Mac Attending Unavailable Jazmín, Pari Primary Care Unavailable Rk Mcclain Attending Unavailable PROVIDER, UNKNOWN Referring Unavailable Jazmín, Pari Attending Unavailable PROVIDER, UNKNOWN Referring Unavailable Jazmín, Pari Primary Care Unavailable PROVIDER, UNKNOWN Referring Unavailable COBY WHITT Attending Unavailable Jazmín, Pari Primary Care Unavailable Jazmín, Pari Primary Care Unavailable COBY WHITT Attending Unavailable PROVIDER, UNKNOWN Referring Unavailable Jose LINARES, Denis Pemberton Primary Care Provider [phone] Pari Noyola MD Primary Care Provider Unavailable Primary Care Provider UnavailDenis Carrero Primary Care Provider DENIS RICKETTS Referring Unavailable RICKETTS, DENIS Pemberton Primary Care Unavailable RICKETTS, DENIS Pemberton Referring Unavailable RICKETTS, DENIS Pemberton Primary Care Unavailable CHRISTIANO HOUGH Referring Unavailable RICKETTS, DENIS Pemberton Primary Care Unavailable JOSE, DENIS Pemberton Attending Unavailable JOSE, DENIS Pemberton Primary Care Unavailable JOSE, DENIS Pemberton Primary Care Unavailable ALEXANDER ESPINOZA JR Attending Unavailable DENIS RICKETTS Referring Unavailable JOSE, DENIS Pemberton Primary Care Unavailable GINNY YEE Attending Unavailable PARI NOYOLA Primary Care Unavailable GINNY YEE Attending Unavailable JOSE, DENIS Pemberton Primary Care Unavailable FELA PHOENIX Attending Unavailable ALEXANDER ESPINOZA JR Referring Unavailable JOSE, DENIS Pemberton Primary Care Unavailable JOSE, DENIS Pemberton Referring Unavailable RICKETTS, DENIS Pemberton Primary Care Unavailable GHANY AHMED Referring Unavailable GHSUSANA ESPINOZA Attending Unavailable JOSE, DENIS Pemberton Primary Care Unavailable GHANY, AHMED Referring Unavailable RICKETTS, AZRA Attending Unavailable RICKETTS, AZRA Primary Care Unavailable RICKETTS, AZRA Referring Unavailable RICKETTS, AZRA Primary Care Unavailable RICKETTS, AZRA Primary Care Unavailable GHANY, AHMED Referring Unavailable RICKETTS, AZRA Primary Care Unavailable JASON, GINNY M Referring Unavailable GHANY, AHMED Attending Unavailable RICKETTS, AZRA Primary Care Unavailable JASON, GINNY M Referring Unavailable GHANY, AHMED Referring Unavailable RICKETTS, AZRA Primary Care Unavailable MARAL, SALOME Attending Unavailable RICKETTS, DENIS Primary Care Unavailable MARAL, SALOME Attending Unavailable Allergies Allergy Classification Reported Allergen(s) Allergy Type Date of Onset Reaction(s) Facility [facility]mitriptyline (1 source) [facility] Work Phone: Anti-Epileptic Agents (1 source) gabapentin Drug Allergy [facility] 204 Work Phone: DULoxetine (1 source) DULoxetine Drug Allergy [facility] 204 Work Phone: (20 sources) amitriptyline; Translations: [AMITRIPTYLINE HCL] Drug Allergy 7 Other (See Comments), Other: See Comments [facility] Repository (20 sources) DULoxetine; Translations: [DULOXETINE] Drug Allergy 5 Other (See Comments), Other: See Comments, Cough, Other [facility] Rep[facility] (20 sources) gabapentin; Translations: [GABAPENTIN] Drug Allergy 5 Other (See Comments), Other: See Comments, Other [facility] Rep[facility] (1 source) NO KNOWN ALLERGIES; Translations: [NO KNOWN ALLERGIES] Propensity to adverse reactions to drug (disorder) [facility] Repository (1 source) Amitriptyline; Translations: [Elavil] Drug Allergy [facility] Repository (1 source) DULoxetine; Translations: [facility] Amit[facility]yline Drug Allergy 5 [place], [place] (5 sources) DULoxetine Drug Allergy [address] [place] [address] Medications Current Medications Medication Drug Class(es) Dates Sig (Normalized) Sig (Original) acetaminophen 325 mg / HYDROcodone bitartrate 5 mg oral tablet (20 sources) Opioid Agonist Start: 06-02-2017 take 1 tablet by mouth twice daily as needed HYDROcodone-aceta minophen ([place]) 5-325 MG tablet Take 1 tablet by mouth 2 times daily as needed. 0 06/02/2017 Active Completed/Discontinued Medications Medication Drug Class(es) Dates Sig (Normalized) Sig (Original) acetaminophen 500 mg oral tablet (2 sources) Start: 09-01-2021 End: 09-01-2021 acetaminophen (TYLENOL) tablet 1,000 mg Problems Active Problems Problem Classification Problem Date Documented Date Episodic/Chronic Abdominal pain (1 source) Epigastric pain; Translations: [Epigastric pain] Episodic Acute and chronic tonsillitis (20 sources) Hypertrophy of tonsils AND adenoids; Translations: [Chronic tonsillitis] Onset: 09-18-2011 04-05-2017 Chronic Anxiety disorders (20 sources) Anxiety disorder, unspecified; Translations: [Other specified anxiety disorders] Onset: 08-25-2021 Chronic Appendicitis and other appendiceal conditions (1 source) Acute appendicitis; Translations: [Acute appendicitis without mention of peritonitis] Episodic Asthma (2 sources) Unspecified asthma, uncomplicated; Translations: [Unspecified asthma, uncomplicated] Onset: 09-01-2021 Chronic Diabetes mellitus with complications (20 sources) Type 2 diabetes mellitus; Translations: [Type 2 diabetes mellitus with hyperglycemia] Onset: 07-23-2021 07-23-2021 Chronic Diabetes mellitus without complication (20 sources) Diabetes mellitus; Translations: [Type 2 diabetes mellitus without complications] Onset: 07-23-2021 08-18-2021 Chronic Diseases of white blood cells (12 sources) Leukemoid reaction; Translations: [Leukemoid reaction] Onset: 09-23-2022 Chronic Esophageal disorders (20 sources) Gastro-esophageal reflux disease without esophagitis; Translations: [Gastroesophageal reflux disease] Onset: 05-28-2017 03-20-2019 Chronic Essential hypertension (13 sources) Hypertensive disorder; Translations: [Essential (primary) hypertension] Onset: 08-18-2021 08-18-2021 Chronic Genitourinary symptoms and ill-defined conditions (1 source) Microscopic hematuria; Translations: [Other microscopic hematuria] Episodic Miscellaneous mental health disorders (1 source) Chronic insomnia; Translations: [Psychophysiologic insomnia] 04-12-2023 Chronic Mood disorders (20 sources) Depressive disorder; Translations: [Depression] Onset: 06-30-2016 04-05-2017 Chronic Mood disorders (4 sources) Major depressive disorder, single episode, unspecified; Translations: [Mood disorders] Onset: 07-21-2017 Multiple sclerosis (1 source) H/O: RELATIONS LIAISON disorder; Translations: [Multiple sclerosis] 04-12-2023 Chronic Neoplasms of unspecified nature or uncertain behavior (1 source) Thrombocytosis; Translations: [Thrombocytosis] Onset: 12-14-2022 Chronic Neoplasms of unspecified nature or uncertain behavior (1 source) Thrombocytosis; Translations: [Thrombocytosis] Episodic Nutritional deficiencies (10 sources) Vitamin D deficiency; Translations: [Vitamin D deficiency, unspecified] Onset: 12-17-2022 Chronic Other connective tissue disease (2 sources) Cramp and spasm; Translations: [Cramp and spasm] Onset: 03-06-2022 Episodic Other female genital disorders (2 sources) Abnormal uterine and vaginal bleeding, unspecified; Translations: [Abnormal uterine and vaginal bleeding, unspecified] Onset: 09-01-2021 Chronic Other hematologic conditions (1 source) Erythrocytosis; Translations: [Secondary polycythemia] Episodic Other liver diseases (2 sources) Fatty (change of) liver, not elsewhere classified; Translations: [Fatty (change of) liver, not elsewhere classified] Onset: 06-07-2017 Chronic Other nervous system disorders (2 sources) Lesion of ulnar nerve, left upper limb; Translations: [Demyelinating disease of central nervous system, unspecified] Onset: 05-01-2017 Chronic Other nervous system disorders (11 sources) Ulnar neuropathy; Translations: [Lesion of ulnar nerve, left upper limb] Onset: 05-17-2017 03-20-2019 Chronic Other nutritional; endocrine; and metabolic disorders (4 sources) Obesity, unspecified; Translations: [Morbid (severe) obesity due to excess calories] Onset: 07-14-2017 Chronic Other nutritional; endocrine; and metabolic disorders (11 sources) Morbid obesity; Translations: [Morbid (severe) obesity due to excess calories] Onset: 01-27-2017 04-05-2017 Chronic Other nutritional; endocrine; and metabolic disorders (2 sources) Morbid (severe) obesity due to excess calories; Translations: [Morbid (severe) obesity due to excess calories] Onset: 04-10-2022 Chronic Other nutritional; endocrine; and metabolic disorders (19 sources) Severe obesity; Translations: [Morbid (severe) obesity due to excess calories] Onset: 03-24-2021 Chronic Other nutritional; endocrine; and metabolic disorders (1 source) Body mass index 40+ - severely obese; Translations: [Body mass index (BMI) 50.0-59.9, adult] Chronic Other upper respiratory disease (2 sources) Allergic rhinitis, unspecified; Translations: [Allergic rhinitis, unspecified] Onset: 08-25-2021 Chronic Residual codes; unclassified (20 sources) Obstructive sleep apnea syndrome; Translations: [Obstructive sleep apnea (adult) (pediatric)] Onset: 09-18-2011 04-05-2017 Chronic Residual codes; unclassified (1 source) Obstructive sleep apnea (adult) (pediatric); Translations: [HILDA (obstructive sleep apnea)] Onset: 09-18-2011 Chronic Screening and history of mental health and substance abuse codes (1 source) History of post-traumatic stress disorder; Translations: [Personal history of other mental and behavioral disorders] 04-12-2023 Episodic Spondylosis; intervertebral disc disorders; other back problems (16 sources) Degeneration of lumbar intervertebral disc; Translations: [Other intervertebral disc degeneration, lumbar region] Onset: 08-10-2022 Chronic Substance-related disorders (20 sources) Nicotine dependence, unspecified, uncomplicated; Translations: [Nicotine dependence, cigarettes, uncomplicated] Onset: 07-21-2017 Chronic Unclassified (6 sources) Body mass index (BMI) 50-59.9 , adult; Translations: [Obstructive sleep apnea (adult) (pediatric)] Onset: 07-21-2017 Chronic Unclassified (1 source) Pain, unspecified; Translations: [Pain, unspecified] Onset: 04-27-2017 Unclassified (2 sources) Unknown / UNK(Unknown) Onset: 02-22-2017 Unclassified (1 source) Cough, unspecified; Translations: [Cough, unspecified] Onset: 08-20-2021 Past or Other Problems Problem Classification Problem Date Documented Da te Episodic/Chronic Allergic reactions (6 sources) Allergy status to other drugs, medicaments and biological substances status; Translations: [Allergy status to unspecified drugs, medicaments and biological substances status] Onset: 07-21-2017 Episodic Biliary tract disease (6 sources) Calculus of gallbladder with chronic cholecystitis without obstruction; Translations: [Other cholelithiasis without obstruction] Onset: 06-07-2017 Episodic Cardiac dysrhythmias (1 source) Tachycardia, unspecified; Translations: [Tachycardia] Onset: 12-08-2022 Episodic Chronic obstructive pulmonary disease and bronchiectasis (2 sources) Bronchitis, not specified as acute or chronic; Translations: [Bronchitis, not specified as acute or chronic] Onset: 07-21-2017 Episodic Immunizations and screening for infectious disease (5 sources) Patient encounter status; Translations: [Encounter for immunization] Onset: 03-10-2023 Episodic Medical examination/evaluation (2 sources) Encounter for other preprocedural examination; Translations: [Encounter for other preprocedural examination] Onset: 07-14-2017 Episodic Nonspecific chest pain (14 sources) Chest pain; Translations: [Chest pain, unspecified] Onset: 03-20-2019 03-20-2019 Episodic Other aftercare (2 sources) terminal carman (current) use of oral hypoglycemic drugs; Translations: [[facility] (current) use of oral hypoglycemic drugs] Onset: 09-01-2021 Episodic Other aftercare (2 sources) Other intermission coordinator (current) drug therapy; Translations: [Other [facility] (current) drug therapy] Onset: 09-01-2021 Episodic Other connective tissue disease (11 sources) Muscle pain; Translations: [Myalgia, unspecified site] Onset: 03-20-2019 03-20-2019 Episodic Other connective tissue disease (20 sources) Fibromyalgia; Translations: [Fibromyalgia] Onset: 06-30-2016 04-05-2017 Episodic Other female genital disorders (2 sources) Polyp of corpus uteri; Translations: [Polyp of corpus uteri] Onset: 09-01-2021 Episodic Other gastrointestinal disorders (10 sources) Heartburn; Translations: [Heartburn] Onset: 08-18-2021 08-18-2021 Episodic Other hematologic conditions (1 source) Secondary polycythemia; Translations: [Secondary polycythemia] Onset: 12-14-2022 Episodic Other lower respiratory disease (1 source) Pleurodynia; Translations: [Pleuritic chest pain] Onset: 12-08-2022 Episodic Other non-traumatic joint disorders (1 source) Pain in unspecified joint; Translations: [Pain in unspecified joint] Onset: 04-06-2017 Episodic Spondylosis; intervertebral disc disorders; other back problems (16 sources) Chronic low back pain; Translations: [Chronic bilateral low back pain without sciatica] Onset: 08-10-2022 Episodic Unclassified (8 sources) Family history of other endocrine, nutritional and metabolic diseases; Translations: [Family history of diabetes mellitus] Onset: 07-21-2017 Episodic Unclassified (1 source) M79.7 Onset: 02-22-2017 Unclassified (1 source) Cough, unspecified; Translations: [Cough, unspecified] Onset: 08-20-2021 NEGATED: Highlighted row has been ruled out!Residual codes; unclassified (2 sources) Disease Episodic Results Test Name Value Interpretation Reference Range Facil ity Vital Signs Date Time Vital Sign Value Performing Clinician Faci lity 06-04-2023 08:48-0500 Body weight 150.59 kg Fela Lizett MANAGER MOBILE.EXPERIENCE SPECIALIST Work Phone: [facility] 06-04-2023 08:48-0500 Diastolic blood pressure 88 mm[Hg] Fela Lizett MANAGER MOBILE.EXPERIENCE SPECIALIST Work Phone: [facility] 06-04-2023 08:48-0500 Heart rate 100 /min Fela Lizett MANAGER MOBILE.EXPERIENCE SPECIALIST Work Phone: [facility] 06-04-2023 08:48-0500 Respiratory rate 18 /min Fela Lizett MANAGER MOBILE.EXPERIENCE SPECIALIST Work Phone: [facility] 06-04-2023 08:48-0500 SaO2% (BldA) [Mass fraction] 97 % Fela Lizett MANAGER MOBILE.EXPERIENCE SPECIALIST Work Phone: [facility] 06-04-2023 08:48-0500 Systolic blood pressure 151 mm[Hg] Fela Lizett MANAGER MOBILE.EXPERIENCE SPECIALIST Work Phone: [facility] 04-12-2023 07:51-0400 Body weight 147.51 kg Alexander Espinoza Jr., MD Work Phone: [facility] 04-12-2023 07:51-0400 Diastolic blood pressure 90 mm[Hg] Alexander Espinoza Jr., MD Work Phone: [facility] 04-12-2023 07:51-0400 Heart rate 110 /min Alexander Espinoza Jr., MD Work Phone: [facility] 04-12-2023 07:51-0400 Respiratory rate 16 /min Alexander Espinoza Jr., MD Work Phone: [facility] 04-12-2023 07:51-0400 SaO2% (BldA) [Mass fraction] 96 % Alexander Espinoza Jr., MD Work Phone: [facility] 04-12-2023 07:51-0400 Systolic blood pressure 128 mm[Hg] Alexander Espinoza Jr., MD Work Phone: [facility] 03-10-2023 09:08-0400 Body height 170.2 cm Salome Mac MD Work Phone: [facility] 03-10-2023 09:08-0400 Body mass index (BMI) [Ratio] 52.31 kg/m2 Salome Mac MD Work Phone: [facility] 03-10-2023 09:08-0400 Body weight 151.5 kg Salome Mac MD Work Phone: [facility] 09-23-2022 09:09-0400 Body temperature 98.2 [degF] Susana Moon MD Work Phone: [facility] 09-23-2022 09:09-0400 Body weight 160.12 kg Susana Moon MD Work Phone: [facility] 09-23-2022 09:09-0400 Diastolic blood pressure 91 mm[Hg] Susana Moon MD Work Phone: [facility] 09-23-2022 09:09-0400 Heart rate 110 /min Susana Moon MD Work Phone: [facility] 09-23-2022 09:09-0400 SaO2% (BldA) [Mass fraction] 98 % Susana Moon MD Work Phone: [facility] 09-23-2022 09:09-0400 Systolic blood pressure 137 mm[Hg] Susana Moon MD Work Phone: [facility] 08-10-2022 08:27-0500 Diastolic blood pressure 72 mm[Hg] Ginny Older MANAGER MOBILE.EXPERIENCE SPECIALIST Work Phone: [facility] 08-10-2022 08:27-0500 Systolic blood pressure 126 mm[Hg] Ginny Older MANAGER MOBILE.EXPERIENCE SPECIALIST Work Phone: [facility] 08-10-2022 07:54-0500 Body height 167.6 cm Ginny Older MANAGER MOBILE.EXPERIENCE SPECIALIST Work Phone: [facility] 08-10-2022 07:54-0500 Body weight 156.94 kg Ginny Older MANAGER MOBILE.EXPERIENCE SPECIALIST Work Phone: [facility] 08-10-2022 07:54-0500 Heart rate 120 /min Ginny Older MANAGER MOBILE.EXPERIENCE SPECIALIST Work Phone: [facility] 08-10-2022 07:54-0500 Respiratory rate 20 /min Ginny Older MANAGER MOBILE.EXPERIENCE SPECIALIST Work Phone: [facility] 03-31-2022 08:22-0400 Body height 170.2 cm Rk Mcclain MD Work Phone: [facility] 03-31-2022 08:22-0400 Body mass index (BMI) [Ratio] 52.63 kg/m2 Rk Mcclain MD Work Phone: [facility] 03-31-2022 08:22-0400 Body weight 152.41 kg Rk Mcclain MD Work Phone: [facility] 09-01-2021 13:45-0500 Body temperature 97 [degF] Salome Mac MD Work Phone: [facility] 09-01-2021 13:45-0500 Diastolic blood pressure 90 mm[Hg] Salome Mac MD Work Phone: [facility] 09-01-2021 13:45-0500 Heart rate 82 /min Salome Mac MD Work Phone: [facility] 09-01-2021 13:45-0500 Respiratory rate 16 /min Salome Mac MD Work Phone: [facility] 09-01-2021 13:45-0500 SaO2% (BldA) [Mass fraction] 97 % Salome Mac MD Work Phone: [facility] 09-01-2021 13:45-0500 Systolic blood pressure 140 mm[Hg] Salome Mac MD Work Phone: [facility] 09-01-2021 10:16-0500 Body height 170.2 cm Salome Mac MD Work Phone: [facility] 09-01-2021 10:16-0500 Body mass index (BMI) [Ratio] 54.82 kg/m2 Salome Mac MD Work Phone: [facility] 09-01-2021 10:16-0500 Body weight 158.76 kg Salome Mac MD Work Phone: [facility] Encounters Encounter Date Encounter Type Care Provider Facility Start: 08-06-2023 Kell Silveira Work Phone: [facility] Start: 07-05-2023 End: 07-06-2023 ambulatory DENIS RICKETTS Facility:[facility] Start: 06-04-2023 End: 06-04-2023 ambulatory DENIS RICKETTS Facility:[facility] Start: 06-04-2023 End: 06-04-2023 Patient encounter procedure Fela Phoenix APRN.CNP Work Phone: Neurology Procedures Date Procedure Procedure Detail Performing Clinician Start: 03-03-2023 INFLUENZA VACCINE, A GE 6 MO - 64 YR, QUADRIVALENT (AFLURIA, FLULAVAL, FLUZONE) Denis Ricketts MD Work Phone: Start: 03-03-2023 Hemoglobin A1c/Hemoglobin.total in Blood Denis Ricketts MD Work Phone: Start: 04-07-2022 Lipid 1996 panel - S estefani or Plasma Coby Whitt MD Work Phone: Start: 03-31-2022 ECHOCARDIOGRAM PHARMACOLOGICAL STRESS TEST Rk Mcclain MD Work Phone: Start: 09-01-2021 Ecg routine ecg w/le ast 12 lds w/i&r Salome Mac MD Work Phone: Start: 09-01-2021 Gluc bld gluc mntr d ev cleared fda spec home use Salome Mac MD Work Phone: Start: 09-01-2021 Urine test visual color cmprsn meths Maurice Quintana MD Work Phone: Start: 09-01-2021 HAIR STUDIO 3 Salome Mac MD Work Phone: Start: 05-28-2021 Microscopic observat ion [Identifier] in Cervix by Cyto stain Salome Mac MD Work Phone: Start: 03-08-2020 Us abdominal real ti me w/image documentation Elisabet Sturbridge Work Phone: Cholecystectomy Lucio choi Tonsillectomy Lucio Muniz Plan of Treatment Date Care Activity Detail Author Start: 01-02-2052 Pneumococcal 0-64 ye ars Vaccine (2 of 2 - PPSV23) Pneumococcal 0-64 years Vaccine (2 of 2 - PPSV23) [facility] Start: 2047 RSV Immunization age d 60 or older (1 - 1-dose 60+ series) RSV Immunization aged 60 or older (1 - 1-dose 60+ series) [facility] Start: 2037 Zoster Vaccines (1 of 2) Zoster Vacc jimmy (1 of 2) [facility] Start: 08-10-2032 DTaP/Tdap/Td Vaccine s (2 - Td or Tdap) DTaP/Tdap/Td Vaccines (2 - Td or Tdap) [facility] Start: 08-10-2032 Urine microalbumin profile [facility] Start: 05-28-2026 Screening for malign ant neoplasm of cervix [facility] Start: 07-05-2024 Hemoglobin A1c measurement Diabetes: Hemoglobin A1C [facility] Start: 06-02-2024 Annual PCP Team Engine Service Repairer shankar Disease Visit Annual PCP Team Chronic Disease Visit [facility] Start: 06-02-2024 Covid-19 Vaccine ( season) Covid-19 Vaccine ( season) [facility] Immunizations Immunization Date Immunization Notes Care Provider Fa magdalenaty 03-03-2023 influenza, injectabl e, quadrivalent, contains preservative Denis Ricketts MD Work Phone: [facility] 08-10-2022 tetanus toxoid, redu jaja diphtheria toxoid, and acellular pertussis vaccine, adsorbed Ginny Older MANAGER MOBILE.EXPERIENCE SPECIALIST Work Phone: [facility] 06-03-2022 Influenza, injectabl e, Madin Li Canine Kidney, preservative free, quadrivalent Ginny Older MANAGER MOBILE.EXPERIENCE SPECIALIST Work Phone: [facility] 06-03-2022 influenza virus vacc ine, unspecified formulation Martha Caro MANAGER MOBILE - EXPERIENCE SPECIALIST Work Phone: [facility] 03-17-2022 pneumococcal polysaccharide vaccine, 23 valent Ginny Older MANAGER MOBILE.EXPERIENCE SPECIALIST Work Phone: [facility] 12-30-2020 COVID-19, Moderna, Primary or Immunocompromised, PF, 100mcg/0.5mL Salome Mac MD Work Phone: [facility] 12-02-2020 COVID-19, Moderna, Primary or Immunocompromised, PF, 100mcg/0.5mL Salome Mac MD Work Phone: [facility] Work Phone: 03-20-2019 pneumococcal polysaccharide vaccine, 23 valent [facility], [place] 06-02-2007 hepatitis B vaccine, adult dosage Salome Mac MD Work Phone: [facility] Work Phone: Payers Date Payer Category Payer Medicaid [id number] 2017 Unknown 2015 Unknown [id number] 1987 Unknown [id number] 2.16.84 [id number]. 1987 Unknown [id number] 2.16.84 [id number]. 1987 Unknown [id number] 2.16.84 [id number]. 1987 Unknown [id number] 2.16.84 0.1.197857.3.579.2. 1987 Unknown [id number] 2.16.84 0.1.102687.3.579.2. 1987 Unknown [id number] 2.16. [id number]. 1987 Unknown [id number] 2.16. [id number]. 1987 Unknown [id number] 2.16. 840.1.280037.3.579.2. 1987 Unknown [id number] 2.16. [id number]. 1987 Unknown [id number] 2.16. 840.1.201419.3.579.2. 1987 Unknown [id number] 2.16. [id number]. 1987 Unknown [id number] 2.16. [id number]. 1987 Unknown [id number] 2.16. [id number] Social History Date Type Detail Facility Start: 06-28-2007 End: 08-10-2022 Tobacco smoking status NHIS Current every day smoker [place], [place] Start: 05-17-2019 End: 03-10-2023 Cigarettes smoked current (pack per day) - Reported [facility] Start: 05-17-2019 End: 08-10-2022 Tobacco use and exposure Never used [facility] [place] Start: 05-17-2019 End: 06-04-2023 Alcohol intake Current non-drinker of alcohol (finding) [facility] Start: 1985 [facility]igned [facility] Start: 05-31-2022 End: 03-10-2023 Exposure to SARS-CoV-2 (event) Not sure [facility] Start: 06-28-2007 History of tobacco use Cigarette Smo ker [employer] Work Phone: Start: 09-01-2021 End: 03-10-2023 Alcohol intake Current drinker of alcohol (finding) [employer] Work Phone: Start: 08-18-2021 History SDOH Alcohol Comment RARE [employer] Work Phone: Start: 03-17-2021 End: 08-03-2022 History SDOH Financial 5 [employer] Work Phone: Start: 03-17-2021 End: 08-03-2022 History SDOH Food Worry 1 [employer] Work Phone: Start: 1985 Sex Assigned At Female S [facility] Start: 08-03-2022 History SDOH Alcohol Std Drinks 0 [facility] Start: 08-03-2022 History SDOH Social Connections Membership 2 [facility] Start: 08-03-2022 History SDOH Social Connections Living 8 [facility] Start: 08-03-2022 History SDOH Financial 4 [facility] Start: 08-03-2022 End: 03-10-2023 Social connection and isolation panel [facility] Do you belong to any clubs or organizations such as protestant groups, unions, fraternal or athletic groups, or school groups? No [facility] Are you now , , , , never or living with a partner? Living with partner [facility] How often to you hav e a drink containing alcohol? Never [facility] How many standard dr inks containing alcohol do you have on a typical day? Patient does not drink [facility] How hard is it for y ou to pay for the very basics like food, housing, medical care, and heating Not very hard [facility] Do you feel stress - tense, restless, nervous, or anxious, or unable to sleep at night because your mind is troubled all the time - these days [OSQ] Very much [facility] (I/We) worried wheth er (my/our) food would run out before (I/we) got money to buy more. Never true [facility] Start: 04-16-2022 Gender identity Identifies as female gender (finding) [facility] Start: 04-16-2022 Sexual orientation Homosexual (findi ng) [facility] NEGATED: Highlighted row - - [id number] [address] Work Phone: Medical Equipment Procedure Code Equipment Code Equipment Origin al Text Equipment Identifier Dates [id number] Start: 10-23-2019 Goals Date Patient Goal Desired Activity /State Functional Status Date Assessment Result Facility NEGATED: Highlighted row Functional performance Functional status health issues are not documented Disease [id number] Work Phone: Mental Status Date Assessment Result Facility NEGATED: Highlighted row Cognitive function [Interpretation] Cognitive status health issues are not documented Disease [facility] 204 Work Phone: Clinical Notes 09-18-2011 to 08-06-2023 Telephone Encounter - Jessica Pulliam RN - 08/06/2023 1:31 PM ESTTelephone Encounter - Jessica Pulliam RN - 08/06/2023 1:31 PM Fela Arevalo APRN.CNP - 06/04/2023 9:00 AM ESTPatient Instructions Note Date & Type Note Facility 08-06-2023 Telephone encounter Note Noted; thank you! [facility] 08-06-2023 Miscellaneous Notes Noted; thank you! documented in this encounter [facility] 06-04-2023 Note HNO ID: [id number] Author: Lizett, Fela, MANAGER MOBILE.EXPERIENCE SPECIALIST Service: ? Author Type: Nurse Practitioner Type: Progress Notes Filed: 06/04/2023 9:16 AM Note Text: [facility] Follow up/ Established patient visit Date of last visit : 04/12/2023 Here for follow up for HILDA on bilevel PAP. At her last visit Dr Espinoza ordered lower pressure to IPAP max 12, so essentially 12/8 cmH2O to help with dryness. She likes the pressure change, no longer drying her out Hasn't been sleeping well due to daisha lately, and now has URI, so she hasn't used PAP as much SLEEP APNEA Sleep apnea type : HILDA, Most Recent Apnea-Hypopnea Index (AHI): 17.5 Treatment : PAP therapy DME: [employer] PAP History: Current PAP settin/8 cm H2O. Reviewed objective PAP compliance data: Mask type: hybrid full face mask Mask issues: none There is a perceived benefit by the patient: more rested --------- - SLEEP HYGIENE QUESTIONS: No routine sleep schedule PATIENT-ENTERED QUESTIONNAIRE SLEEP SCORES Sleep Questions 06/02/2023 Reason for visit: Sleep apnea, Difficulty falling or staying asleep or poor sleep quality, Unsure Average hours slept in 24 hours: - Average hours of CPAP per night: 3.3 Percent of nights CPAP used at least 4 hours: 1 Accidents or near accidents due to drowsy drivin [place] Sleepiness Scale 04/08/2023 06/02/2023 Score 10 (No daytime sleepiness) 6 (No daytime sleepiness) PROMIS CAT Sleep Disturbance 04/08/2023 06/02/2023 PROMIS Sleep Disturbance T-Score 65 (moderate) 63 (moderate) PROMIS Sleep Disturbance Percentile 7% 10% Insomnia Severity Index 04/08/2023 06/02/2023 Score 21 24 Restless Leg Syndrome 04/08/2023 06/02/2023 Score 15 16 PHQ-9 04/08/2023 06/01/2023 06/02/2023 Score 14 4 15 PROMIS Global Health - (T-Scores - the mean of general population = 50. Five points is a clinically meaningful difference.) 03/02/2023 06/01/2023 06/01/2023 Physical T-Score 32.4 26.7 26.7 Mental T-Score 21.2 21.2 21.2 ALLERGIES Allergen Reactions Duloxetine Other: See Comments Made her sluggish Made her sluggish Elavil [Amitriptyli* Other: See Comments Made her sluggish Gabapentin Other: See Comments Made her sluggish Made her sluggish CURRENT MEDICATIONS: traZODone (DESYREL) 150 mg tablet Take 150 mg by mouth daily at bedtime. glipiZIDE (GLUCOTROL XL) 10mg 24 hr tablet Take 1 tablet by mouth daily with breakfast. carBAMazepine, mood stabiliz, 200 mg CM12 Take 1 tablet by mouth two times a day. blood sugar diagnostic (ONETOUCH ULTRA TEST) test strip Test blood sugar(s) 1 times daily. Dx: Type 2 DM - unontrolled E11.65 Insulin: No The One Touch Ultra 2 glucometer is what patient has available so ok for the one touch ultra test strip or other compatible test strip can be substituted if needed. blood sugar diagnostic (BLOOD GLUCOSE TEST) test strip Test blood sugar(s) 1 times daily. Dx: Type 2 DM - unontrolled E11.65 Insulin: No Lancets lancets Test blood sugar(s) 1 times daily. Dx: Type 2 DM - Uncontrolled E11.65 Insulin: No dapagliflozin propanediol (FARXIGA) 10 mg tablet Take 1 tablet by mouth daily with breakfast. ergocalciferol 50,000 unit capsule (VITAMIN D2, DRISDOL) Take 1 capsule by mouth one time a week. lisinopril (ZESTRIL) 10 mg tablet Take 1 tablet by mouth once daily. pantoprazole DR (PROTONIX) 40 mg tablet Take 1 tablet by mouth daily before breakfast. cetirizine (ZYRTEC) 10 mg tablet Take 1 tablet by mouth once daily. ARIPiprazole (ABILIFY) 15 mg tablet Take 15 mg by mouth once daily. rosuvastatin (CRESTOR) 20 mg tablet Take 20 mg by mouth once daily. albuterol (PROVENTIL) 2.5 mg /3 mL (0.083 %) nebulizer solution Use 2.5 mg via nebulizer as needed. albuterol HFA (PROVENTIL HFA, VENTOLIN HFA) 90 mcg/actuation inhaler Inhale 2 Puffs as instructed every 4 hours as needed. baclofen (LIORESAL) 10 mg tablet Take 10 mg by mouth three times daily. PRN busPIRone (BUSPAR) 15 mg tablet Take 15 mg by mouth three times daily. ondansetron (ZOFRAN) 4 mg tablet Take 4 mg by mouth every 8 hours as needed. hydrOXYzine HCl (ATARAX) 25 mg tablet Take 25 mg by mouth as needed (Can take 1-4 per day as needed). levonorgestrel (MIRENA) 20 mcg/24 hours (8 yrs) 52 mg IUD 1 Each by INTRAUTERINE route one time only for 1 dose. HYDROcodone-acetaminophen (NORCO) 5-325 mg per tablet Take 1 tablet by mouth every 6 hours as needed. PHYSICAL EXAMINATION: Vital Signs: BP 151/88 Pulse 100 Resp 18 Wt (!) 150.6 kg (332 lb) LMP 03/08/2023 (Approximate) SpO2 97% BMI 53.36 kg/m? PHYSICAL EXAM: General appearance: appears under the weather but nontoxic Mental status: alert and oriented IMPRESSION: Obstructive sleep apnea treated with bilevel positive airway pressure (bipap) (primary encounter diagnosis) Good improvement in using (more content not included)... [facility] 06-04-2023 History of Present illness Narrative Images from the original note were not included. [facility] Follow up/ Established patient visit Date of last visit : 04/12/2023 Here for follow up for HILDA on bilevel PAP. At her last visit Dr Espinoza ordered lower pressure to IPAP max 12, so essentially 12/8 cmH2O to help with dryness. She likes the pressure change, no longer drying her out Hasn't been sleeping well due to daisha lately, and now has URI, so she hasn't used PAP as much SLEEP APNEA Sleep apnea type : HILDA, Most Recent Apnea-Hypopnea Index (AHI): 17.5 Treatment : PAP therapy DME: [facility] P[facility] History: Current PAP settin/8 cm H2O. Reviewed objective PAP compliance data: Mask type: hybrid full face mask Mask issues: none There is a perceived benefit by the patient: more rested SLEEP HYGIENE QUESTIONS: No routine sleep schedule PATIENT-ENTERED QUESTIONNAIRE SLEEP SCORES Sleep Questions 06/02/2023 Reason for visit: Sleep apnea, Difficulty falling or staying asleep or poor sleep quality, Unsure Average hours slept in 24 hours: - Average hours of CPAP per night: 3.3 Percent of nights CPAP used at least 4 hours: 1 Accidents or near accidents due to drowsy drivin [place] Sleepiness Scale 04/08/2023 06/02/2023 Score 10 (No daytime sleepiness) 6 (No daytime sleepiness) PROMIS CAT Sleep Disturbance 04/08/2023 06/02/2023 PROMIS Sleep Disturbance T-Score 65 (moderate) 63 (moderate) PROMIS Sleep Disturbance Percentile 7% 10% Insomnia Severity Index 04/08/2023 06/02/2023 Score 21 24 Restless Leg Syndrome 04/08/2023 06/02/2023 Score 15 16 PHQ-9 04/08/2023 06/01/2023 06/02/2023 Score 14 4 15 PROMIS Global Health - (T-Scores - the mean of general population = 50. Five points is a clinically meaningful difference.) 03/02/2023 06/01/2023 06/01/2023 Physical T-Score 32.4 26.7 26.7 Mental T-Score 21.2 21.2 21.2 ALLERGIES Allergen Reactions Duloxetine Other: See Comments Made her sluggish Made her sluggish Elavil [Amitriptyli* Other: See Comments Made her sluggish Gabapentin Other: See Comments Made her sluggish Made her sluggish CURRENT MEDICATIONS: traZODone (DESYREL) 150 mg tablet Take 150 mg by mouth daily at bedtime. glipiZIDE (GLUCOTROL XL) 10mg 24 hr tablet Take 1 tablet by mouth daily with breakfast. carBAMazepine, mood stabiliz, 200 mg CM12 Take 1 tablet by mouth two times a day. blood sugar diagnostic (ONETOUCH ULTRA TEST) test strip Test blood sugar(s) 1 times daily. Dx: Type 2 DM - unontrolled E11.65 Insulin: No The One Touch Ultra 2 glucometer is what patient has available so ok for the one touch ultra test strip or other compatible test strip can be substituted if needed. blood sugar diagnostic (BLOOD GLUCOSE TEST) test strip Test blood sugar(s) 1 times daily. Dx: Type 2 DM - unontrolled E11.65 Insulin: No Lancets lancets Test blood sugar(s) 1 times daily. Dx: Type 2 DM - Uncontrolled E11.65 Insulin: No dapagliflozin propanediol (FARXIGA) 10 mg tablet Take 1 tablet by mouth daily with breakfast. ergocalciferol 50,000 unit capsule (VITAMIN D2, DRISDOL) Take 1 capsule by mouth one time a week. lisinopril (ZESTRIL) 10 mg tablet Take 1 tablet by mouth once daily. pantoprazole DR (PROTONIX) 40 mg tablet Take 1 tablet by mouth daily before breakfast. cetirizine (ZYRTEC) 10 mg tablet Take 1 tablet by mouth once daily. ARIPiprazole (ABILIFY) 15 mg tablet Take 15 mg by mouth once daily. rosuvastatin (CRESTOR) 20 mg tablet Take 20 mg by mouth once daily. albuterol (PROVENTIL) 2.5 mg /3 mL (0.083 %) nebulizer solution Use 2.5 mg via nebulizer as needed. albuterol HFA (PROVENTIL HFA, VENTOLIN HFA) 90 mcg/actuation inhaler Inhale 2 Puffs as instructed every 4 hours as needed. baclofen (LIORESAL) 10 mg tablet Take 10 mg by mouth three times daily. PRN busPIRone (BUSPAR) 15 mg tablet Take 15 mg by mouth three times daily. ondansetron (ZOFRAN) 4 mg tablet Take 4 mg by mouth every 8 hours as needed. hydrOXYzine HCl (ATARAX) 25 mg tablet Take 25 mg by mouth as needed (Can take 1-4 per day as needed). levonorgestrel (MIRENA) 20 mcg/24 hours (8 yrs) 52 mg IUD 1 Each by INTRAUTERINE route one time only for 1 dose. HYDROcodone-acetaminophen (NORCO) 5-325 mg per tablet Take 1 tablet by mouth every 6 hours as needed. PHYSICAL EXAMINATION: Vital Signs: BP 151/88 Pulse 100 Resp 18 Wt (!) 150.6 kg (332 lb) LMP 03/08/2023 (Approximate) SpO2 97% BMI 53.36 kg/m PHYSICAL EXAM: General appearance: appears under the weather but nontoxic Mental status: alert and oriented IMPRESSION: Obstructive sleep apnea treated with bilevel positive airway pressure (bipap) (primary encounter diagnosis) Good improvement in using bilevel PAP since pressure changed to 12/8 cmH2O, no longer causing dryness. Has had difficulty sleeping due to daisha as well as URI/cough. Encouraged at least 4 hours daily. No routine sleep schedule at all. PLAN: - Continue Auto Bilevel PAP at above pressure - Remember to clean your mask and equipment regularly, as directed. - You should be eligible for new supplies approximately every 3-6 months, depending on your insurance coverage. Contact your [employer] company for new supplies as needed. - Follow up in 1 yr, but encouraged her to follow up sooner for concerns Fela Phoenix APRN.EXPERIENCE SPECIALIST documented in this encounter [facility] 06-02-2023 Note HNO ID: [id number] Author: Ginny Yee APRN.UNIQUE Service: ? Author Type: Nurse Practitioner Type: Progress Notes Filed: 06/02/2023 8:35 AM Note Text: CC: Patient presents with: F/U 3 Month: Body aches, congestion, nausea 3-4 days HPI Karishma Pickard is a 38 year old female who presents today for above. Diabetes: she was last seen for this three months ago. Control worsening and she was started on Glipizide 5 mg daily. Home blood sugar readings: only checking twice a week, fasting average in the 160's to 170's Hypoglycemia: No She is compliant with medication(s) and is tolerating med(s) without any side effects. Patient's last HgA1C : Hemoglobin A1C (%) Date Value 12/08/2022 7.4 08/10/2022 6.9 12/26/2013 6.1 Hemoglobin A1C (POCT) (%) Date Value 03/03/2023 9.6 Patient reported worsening depression three months ago. She has since followed up with psychiatry, Depakote discontinued and she was started on Tegretol and Trazodone. There has been marginal improvement in symptoms. HILDA- she was non-compliant with CPAP due to intolerance. Referred to sleep medicine, appointment on 04/12. Pressures adjusted with some improvement and now wearing more consistently. Follow-up up appointment this week. Symptoms began three days ago and are worsening Symptoms include: Temperature elevation: No Chills: Yes Cough: Yes productive with yellow sputum Shortness of breath: No Fatigue: Yes Muscle aches: Yes Headache: Yes New loss of smell or taste: No Sore throat: No Nasal congestion: No Rhinorrhea: Yes Nausea and/or vomiting: Yes Diarrhea: No Other Associated symptoms: none. PMH: tobacco abuse OTC meds/remedies that patient has tried: OTC cold medicine. Exposures: Sick contacts? No Family or close contacts with confirmed/probable COVID-19 in last 14 days? No Home COVID test: No Review of Systems See HPI PAST MEDICAL HISTORY Diagnosis Date Cholelithiases Chronic bilateral low back pain without sciatica 08/10/2022 Chronic pain syndrome Class 3 severe obesity due to excess calories without serious comorbidity with body mass index (BMI) of 50.0 to 59.9 in adult ([facility]) 03/24/2021 Controlled type 2 diabetes mellitus without complication, without long-term current use of insulin ([facility]) 08/10/2022 DDD (degenerative disc disease), lumbar 08/10/2022 Depression 01/27/2017 Fibromyalgia 01/27/2017 WATSON (generalized anxiety disorder) 08/10/2022 GERD (gastroesophageal reflux disease) Leukocytosis 12/08/2022 Morbid obesity ([facility]) Obstructive sleep apnea Not on CPAP HILDA (obstructive sleep apnea) 09/18/2011 PCOS (polycystic ovarian syndrome) PTSD (post-traumatic stress disorder) 08/10/2022 Tobacco use disorder 08/10/2022 Ulnar neuropathy Ulnar neuropathy at elbow of left upper extremity 05/17/2017 Added automatically from request for surgery [id number] PAST SURGICAL HISTORY Procedure Laterality Date APPENDECTOMY 08/2010 CHOLECYSTECTOMY HX 07/21/[address] Thorpe. [facility], DIAG AND/OR THERAPEUTIC NEUROPLASTY AND/TRANSPOSITION ULNAR NERVE ELBOW Left 06/02/2017 Left Ulnar nerve decompression NRV DESTR RFA, CHEM OTHER Left 06/2022 TONSILLECTOMY HX ALLERGIES Duloxetine, Elavil [Amitriptyline Hcl], and Gabapentin MEDICATIONS traZODone (DESYREL) 150 mg tablet Take 150 mg by mouth daily at bedtime. carBAMazepine, mood stabiliz, 200 mg CM12 Take 1 tablet by mouth two times a day. blood sugar diagnostic (ONETOUCH ULTRA TEST) test strip Test blood sugar(s) 1 times daily. Dx: Type 2 DM - unontrolled E11.65 Insulin: No The One Touch Ultra 2 glucometer is what patient has available so ok for the one touch ultra test strip or other compatible test strip can be substituted if needed. blood sugar diagnostic (BLOOD GLUCOSE TEST) test strip Test blood sugar(s) 1 times daily. Dx: Type 2 DM - unontrolled E11.65 Insulin: No Lancets lancets Test blood sugar(s) 1 times daily. Dx: Type 2 DM - Uncontrolled E11.65 Insulin: No dapagliflozin propanediol (FARXIGA) 10 mg tablet Take 1 tablet by mouth daily with breakfast. glipiZIDE (GLUCOTROL XL) 5 mg 24 hr tablet Take 1 tablet by mouth daily with breakfast. ergocalciferol 50,000 unit capsule (VITAMIN D2, DRISDOL) Take 1 capsule by mouth one time a week. lisinopril (ZESTRIL) 10 mg tablet Take 1 tablet by mouth once daily. pantoprazole DR (PROTONIX) 40 mg tablet Take 1 tablet by mouth daily before breakfast. cetirizine (ZYRTEC) 10 mg tablet Take 1 tablet by mouth once daily. ARIPiprazole (ABILIFY) 15 mg tablet Take 15 mg by mouth once daily. divalproex DR (DEPAKOTE) 500 mg EC tablet Take 500 mg by mouth twice daily. rosuvastatin (CRESTOR) 20 mg tablet Take 20 mg by mouth once daily. levonorgestrel (MIRENA) 20 mcg/24 hours (8 yrs) 52 mg IUD 1 Each by INTRAUTERINE route one time only for 1 dose. albuterol (PROVENTIL) 2.5 mg /3 mL (0.083 %) nebulizer solution Use 2.5 mg via nebulizer as needed (more content not included)... [facility] 04-12-2023 Note HNO ID: [id number] Author: Alexander Espinoza Jr., MD Service: ? Author Type: Physician Type: Progress Notes Filed: 04/12/2023 9:45 AM Note Text: 03/02/2023 PROMIS Global Health Physical Health Summary Physical health: Poor Everyday physical activity, ability: Mostly Fatigue: Severe Pain level: 9 General health: Poor Social activities/roles, ability: Poor Physical Health T-Score (Poor) Physical Health Percentile PROMIS Global Health Mental Health Summary Quality of life: Poor Mental health (mood,thinking): Poor Social satisfaction: Poor Emotional problems (anxious,depressed): Always Mental Health T-Score (Poor) Mental Health Percentile PHQ-9 Score: 14(Moderate Depression) PHQ-9 Self-Harm: Not at all Percentiles provide an indication of how a patient's score ranks in relation to the [place] general population. > 31st percentile is within normal limits or better *< 31st percentile is at least ? SD worse than population, which may be clinically relevant < 16th percentile is at least 1 SD worse than population and warrants attention Sleep Apnea Probability Snores loudly: Tired, fatigued or sleepy in daytime: Stops breathing or choking/gasping during sleep: High blood pressure: Sleep Apnea Probability Score: (Sleep study not recommended) NEW PATIENT (CONSULT) HISTORY AND PHYSICAL EXAM PRIMARY CARE PHYSICIAN: Denis Ricketts MD REASON FOR CONSULT: HILDA REFERRING PHYSICIAN: Denis Ricketts MD CHIEF COMPLAINT: HILDA Consultation requested by Denis Ricketts MD for an opinion regarding chief complaint of Patient presents with: Sleep Apnea: Patient has not been using CPAP as it is drying out her mouth and face, contacted PCP and they advised to see sleep medicine and my final recommendations will be communicated back to the requesting physician by way of shared medical record or letter via [place] mail. HISTORY OF PRESENT ILLNESS: Karishma Pickard is a 38 year old female, BMI 52.26 kg/m2 with a PMH significant for Moderate HILDA as determined by sleep study performed at [facility] in 2018. The AHI was reportedly 17.5 with min O2 of 73%. The patient underwent PAP titration at that same time showing need for bilevel PAP at 17/13 cmH2O per report. The pateint could not tolerate CPAP. The recommended pressure appeared to normalize the REM related AHI, but unclear if pt was supine on this setting. Pt had PAP years ago but states it was a pain , but PCP then made her have another this year 09/17/22. That study also performed at [facility] and I interpreted study recommending Auto bilevel PAP. States pressure does not bother nor does mask but humidity up to 8 and still drying out. Only used 3 days. Despite the high humidifier setting, the water tank is full the next day. Otherwise no complaints with PAP. Pt does report chronic insomnia (onset). Goes to bed about noon, and wakes about 130-2AM as family works 3rd shift. Then goes to bed about 11P-MN, and then sleeps about 3-4 hours. Sleeps longer with PAP. Difficulties falling asleep in bed but no issues if watching tv. No air leaking from mask. No snoring with the PAP on. No audible luciano leaks. No sinus congestion. States when first goes to sleep ok, but upon waking up during the night states pressure feels like too much. Sleep Questionnaire Data Depression Screening 12/06/2022 03/02/2023 04/08/2023 PHQ-2 Score 4 2 1 PHQ-9 Score 12 15 14 WATSON-2 Total Score 6 6 - WATSON-7 Total Score 15 19 - PED PHQ-9 12/06/2022 03/02/2023 04/08/2023 Little interest or pleasure in doing things Nearly every day More than half the days Several days Feeling down, depressed, or hopeless Several days Not at all Not at all Trouble falling or staying asleep, or sleeping too much Nearly every day Nearly every day Nearly every day Feeling tired or having little energy More than half the days More than half the days Nearly every day Poor appetite or overeating Nearly every day Nearly every day Nearly every day Feeling bad about yourself - or that you are a failure or have let yourself or your family down Not at all More than half the days Not at all Trouble concentrating on things, such as reading the newspaper or watching television Not at all More than half the days Several days Moving or speaking so slowly that other people could have noticed. Or the opposite - being so fidgety or restless that you have been moving around a lot more than usual Not at all Several days Nearly every day Thoughts that you would be better off , or of hurting yourself in some way Not at all Not at all Not at all If you checked off any problems, how difficult have these problems made it for you to do your work, take care of things at home, or get along with other people? Somewhat difficult Extremely difficult Somewhat difficult PHQ-9 Score 12 (Moderate Depression) 15 (Moderately Severe Depression) 14 (Moderate Depression) [place]coe Sleepiness Scale (more content not included)... [facility] 04-12-2023 Note HNO ID: [id number] Author: Joslyn Almodovar OCCA Service: ? Author Type: Tailor Garment Fitter Type: Progress Notes Filed: 04/12/2023 9:45 AM Note Text: 03/02/2023 PROMIS Global Health Physical Health Summary Physical health: Poor Everyday physical activity, ability: Mostly Fatigue: Severe Pain level: 9 General health: Poor Social activities/roles, ability: Poor Physical Health T-Score (Poor) Physical Health Percentile PROMIS Global Health Mental Health Summary Quality of life: Poor Mental health (mood,thinking): Poor Social satisfaction: Poor Emotional problems (anxious,depressed): Always Mental Health T-Score (Poor) Mental Health Percentile PHQ-9 Score: 14(Moderate Depression) PHQ-9 Self-Harm: Not at all Percentiles provide an indication of how a patient's score ranks in relation to the [place] general population. > 31st percentile is within normal limits or better *< 31st percentile is at least ? SD worse than population, which may be clinically relevant < 16th percentile is at least 1 SD worse than population and warrants attention Sleep Apnea Probability Snores loudly: Tired, fatigued or sleepy in daytime: Stops breathing or choking/gasping during sleep: High blood pressure: Sleep Apnea Probability Score: (Sleep study not recommended) [facility] 04-12-2023 Instructions Alexander Espinoza Jr., MD - 04/12/2023 9:03 AM EDT Your most recent body mass index (BMI) that we have on record is 52.26 kg/m2. Obstructive sleep apnea (HILDA) worsens with an increase in weight; reduction in weight may improve or resolve your HILDA. If you are not already seeking treatment, there are resources available at the [facility] such as a nutrition consultation or referral to weight management programs at our [facility]. Please let us know if we can assist with a referral. documented in this encounter [facility] 04-12-2023 History of Present illness Narrative 03/02/2023 PROMIS Global Health Physical Health Summary Physical health: Poor Everyday physical activity, ability: Mostly Fatigue: Severe Pain level: 9 General health: Poor Social activities/roles, ability: Poor Physical Health T-Score (Poor) Physical Health Percentile PROMIS Global Health Mental Health Summary Quality of life: Poor Mental health (mood,thinking): Poor Social satisfaction: Poor Emotional problems (anxious,depressed): Always Mental Health T-Score (Poor) Mental Health Percentile PHQ-9 Score: 14(Moderate Depression) PHQ-9 Self-Harm: Not at all Percentiles provide an indication of how a patient's score ranks in relation to the [place] general population. > 31st percentile is within normal limits or better *< 31st percentile is at least SD worse than population, which may be clinically relevant < 16th percentile is at least 1 SD worse than population and warrants attention Sleep Apnea Probability Snores loudly: Tired, fatigued or sleepy in daytime: Stops breathing or choking/gasping during sleep: High blood pressure: Sleep Apnea Probability Score: (Sleep study not recommended) NEW PATIENT (CONSULT) HISTORY AND PHYSICAL EXAM PRIMARY CARE PHYSICIAN: Denis Ricketts MD REASON FOR CONSULT: HILDA REFERRING PHYSICIAN: Denis Ricketts MD CHIEF COMPLAINT: HILDA Consultation requested by Denis Ricketts MD for an opinion regarding chief complaint of Patient presents with: Sleep Apnea: Patient has not been using CPAP as it is drying out her mouth and face, contacted PCP and they advised to see sleep medicine and my final recommendations will be communicated back to the requesting physician by way of shared medical record or letter via [place] mail. HISTORY OF PRESENT ILLNESS: Karishma Pickard is a 38 year old female, BMI 52.26 kg/m2 with a PMH significant for Moderate HILDA as determined by sleep study performed at [facility] in 2018. The AHI was reportedly 17.5 with min O2 of 73%. The patient underwent PAP titration at that same time showing need for bilevel PAP at 17/13 cmH2O per report. The pateint could not tolerate CPAP. The recommended pressure appeared to normalize the REM related AHI, but unclear if pt was supine on this setting. Pt had PAP years ago but states it was a pain , but PCP then made her have another this year 09/17/22. That study also performed at [facility] and I interpreted study recommending Auto bilevel PAP. States pressure does not bother nor does mask but humidity up to 8 and still drying out. Only used 3 days. Despite the high humidifier setting, the water tank is full the next day. Otherwise no complaints with PAP. Pt does report chronic insomnia (onset). Goes to bed about noon, and wakes about 130-2AM as family works 3rd shift. Then goes to bed about 11P-MN, and then sleeps about 3-4 hours. Sleeps longer with PAP. Difficulties falling asleep in bed but no issues if watching tv. No air leaking from mask. No snoring with the PAP on. No audible luciano leaks. No sinus congestion. States when first goes to sleep ok, but upon waking up during the night states pressure feels like too much. Sleep Questionnaire Data Depression Screening 12/06/2022 03/02/2023 04/08/2023 PHQ-2 Score 4 2 1 PHQ-9 Score 12 15 14 WATSON-2 Total Score 6 6 - WATSON-7 Total Score 15 19 - PED PHQ-9 12/06/2022 03/02/2023 04/08/2023 Little interest or pleasure in doing things Nearly every day More than half the days Several days Feeling down, depressed, or hopeless Several days Not at all Not at all Trouble falling or staying asleep, or sleeping too much Nearly every day Nearly every day Nearly every day Feeling tired or having little energy More than half the days More than half the days Nearly every day Poor appetite or overeating Nearly every day Nearly every day Nearly every day Feeling bad about yourself - or that you are a failure or have let yourself or your family down Not at all More than half the days Not at all Trouble concentrating on things, such as reading the newspaper or watching television Not at all More than half the days Several days Moving or speaking so slowly that other people could have noticed. Or the opposite - being so fidgety or restless that you have been moving around a lot more than usual Not at all Several days Nearly every day Thoughts that you would be better off , or of hurting yourself in some way Not at all Not at all Not at all If you checked off any problems, how difficult have these problems made it for you to do your work, take care of things at home, or get along with other people? Somewhat difficult Extremely difficult Somewhat difficult PHQ-9 Score 12 (Moderate Depression) 15 (Moderately Severe Depression) 14 (Moderate Depression) Glencoe Sleepiness Scale 12/06/2022 03/02/2023 04/08/2023 Score - - 10 (No daytime sleepiness) Insomnia Severity Index 12/06/2022 03/02/2023 04/08/2023 Score - - 21 REVIEW OF SYSTEMS GENERAL:No weight loss, malaise or fevers. HEENT:Negative for frequent or significant headaches, No changes in hearing or vision, no nose bleeds or other nasal problems NECK:Negative for lumps, goiter, pain and significant neck swelling RESPIRATORY: Negative for cough, wheezing or shortness of breath. CARDIOVASCULAR: Negative for chest pain, leg swelling or palpitations. GASTROINTESTINAL: Negative for abdominal discomfort, blood in stools or black stools or change in bowel habits GENITOURINARY: No history of dysuria, frequency or incontinence MUSCULOSKELETAL: Non specific chronic myalgias. NEUROLOGIC:Negative for focal numbness or weakness, headaches and dizziness or syncope, vision changes, speech/language changes, changes in gait or falls -- besides those complaints as above in HPI. SKIN:Negative for lesions, rash, and itching. PSYCHIATRIC: History of PTSD, no SI or HI. Racing thoughts at times. LAB/IMAGING: Reviewed and include: WBC (k/uL) Date Value 12/08/2022 17.51 (H) RBC (m/uL) Date Value 12/08/2022 5.31 (H) Hemoglobin (g/dL) Date Value 12/08/2022 16.0 (H) Hematocrit (%) Date Value 12/08/2022 49.9 (H) MCV (fL) Date Value 12/08/2022 94.0 MCH (pg) Date Value 12/08/2022 30.1 MCHC (g/dL) Date Value 12/08/2022 32.1 RDW-CV (%) Date Value 12/08/2022 13.3 Platelet Count (k/uL) Date Value 12/08/2022 476 (H) MPV (fL) Date Value 12/08/2022 10.4 Glucose (mg/dL) Date Value 12/08/2022 112 (H) BUN (mg/dL) Date Value 12/08/2022 8 Creatinine (mg/dL) Date Value 12/08/2022 0.60 Sodium (mmol/L) Date Value 12/08/2022 139 Potassium (mmol/L) Date Value 12/08/2022 4.7 Chloride (mmol/L) Date Value 12/08/2022 102 CO2 (mmol/L) Date Value 12/08/2022 21 (L) Protein, Total (g/dL) Date Value 12/08/2022 7.8 Albumin (g/dL) Date Value 12/08/2022 4.3 Calcium, Total (mg/dL) Date Value 12/08/2022 10.1 Alkaline Phosphatase (U/L) Date Value 12/08/2022 131 (H) Bilirubin, Total (mg/dL) Date Value 12/08/2022 0.4 AST (U/L) Date Value 12/08/2022 28 ALT (U/L) Date Value 12/08/2022 36 EMILY (no units) Date Value 12/26/2013 Negative Rheumatoid Factor (IU/mL) Date Value 12/26/2013 <10 Hep C Antibody IA (no units) Date Value 02/08/2014 Negative MEDICATIONS: albuterol (PROVENTIL) 2.5 mg /3 mL (0.083 %) nebulizer solution Use 2.5 mg via nebulizer as needed. albuterol HFA (PROVENTIL HFA, VENTOLIN HFA) 90 mcg/actuation inhaler Inhale 2 Puffs as instructed every 4 hours as needed. ARIPiprazole (ABILIFY) 15 mg tablet Take 15 mg by mouth once daily. baclofen (LIORESAL) 10 mg tablet Take 10 mg by mouth three times daily. PRN blood sugar diagnostic (BLOOD GLUCOSE TEST) test strip Test blood sugar(s) 1 times daily. Dx: Type 2 DM - unontrolled E11.65 Insulin: No blood sugar diagnostic (ONETOUCH ULTRA TEST) test strip Test blood sugar(s) 1 times daily. Dx: Type 2 DM - unontrolled E11.65 Insulin: No The One Touch Ultra 2 glucometer is what patient has available so ok for the one touch ultra test strip or other compatible test strip can be substituted if needed. busPIRone (BUSPAR) 15 mg tablet Take 15 mg by mouth three times daily. carBAMazepine, mood stabiliz, 200 mg CM12 Take 1 tablet by mouth once daily. cetirizine (ZYRTEC) 10 mg tablet Take 1 tablet by mouth once daily. dapagliflozin propanediol (FARXIGA) 10 mg tablet Take 1 tablet by mouth daily with breakfast. divalproex DR (DEPAKOTE) 500 mg EC tablet Take 500 mg by mouth twice daily. ergocalciferol 50,000 unit capsule (VITAMIN D2, DRISDOL) Take 1 capsule by mouth one time a week. glipiZIDE (GLUCOTROL XL) 5 mg 24 hr tablet Take 1 tablet by mouth daily with breakfast. HYDROcodone-acetaminophen (NORCO) 5-325 mg per tablet Take 1 tablet by mouth every 6 hours as needed. hydrOXYzine HCl (ATARAX) 25 mg tablet Take 25 mg by mouth as needed (Can take 1-4 per day as needed). Lancets lancets Test blood sugar(s) 1 times daily. Dx: Type 2 DM - Uncontrolled E11.65 Insulin: No levonorgestrel (MIRENA) 20 mcg/24 hours (8 yrs) 52 mg IUD 1 Each by INTRAUTERINE route one time only for 1 dose. lisinopril (ZESTRIL) 10 mg tablet Take 1 tablet by mouth once daily. ondansetron (ZOFRAN) 4 mg tablet Take 4 mg by mouth every 8 hours as needed. pantoprazole DR (PROTONIX) 40 mg tablet Take 1 tablet by mouth daily before breakfast. rosuvastatin (CRESTOR) 20 mg tablet Take 20 mg by mouth once daily. HISTORIES PAST MEDICAL HISTORY Diagnosis Date Cholelithiases Chronic bilateral low back pain without sciatica 08/10/2022 Chronic pain syndrome Class 3 severe obesity due to excess calories without serious comorbidity with body mass index (BMI) of 50.0 to 59.9 in adult ([facility]) 03/24/2021 Controlled type 2 diabetes mellitus without complication, without long-term current use of insulin ([facility]) 08/10/2022 DDD (degenerative disc disease), lumbar 08/10/2022 Depression 01/27/2017 Fibromyalgia 01/27/2017 WATSON (generalized anxiety disorder) 08/10/2022 GERD (gastroesophageal reflux disease) Leukocytosis 12/08/2022 Morbid obesity (HCC) Obstructive sleep apnea Not on CPAP HILDA (obstructive sleep apnea) 09/18/2011 PCOS (polycystic ovarian syndrome) PTSD (post-traumatic stress disorder) 08/10/2022 Tobacco use disorder 08/10/2022 Ulnar neuropathy Ulnar neuropathy at elbow of left upper extremity 05/17/2017 Added automatically from request for surgery [id number] FAMILY HISTORY Problem Relation Age of Onset Multiple Sclerosis Mother Stroke Father Kidney Disease Brother Multiple Sclerosis Maternal Grandmother Heart Paternal Grandmother Hyperlipidemia Paternal Grandmother Arthritis Paternal Grandfather Cancer Paternal Grandfather skin Emphysema Paternal Grandfather Prostate Cancer Paternal Grandfather other (ALS) Paternal Grandfather other (multiple sclerosis) Maternal Aunt SOCIAL HISTORY Social History Tobacco Use Smoking status: Every Day Packs/day: 0.50 Years: 15.00 Additional pack years: 0.00 Total pack years: 7.50 Types: Cigarettes Start date: 06/28/2007 Smokeless tobacco: Never Vaping Use Vaping Use: Never used Substance Use Topics Alcohol use: No Drug use: Never PHYSICAL EXAMINATION BP 128/90 Pulse 110 Resp 16 Wt (!) 147.5 kg (325 lb 3.2 oz) LMP 03/08/2023 (Approximate) SpO2 96% BMI 52.26 kg/m GENERAL EXAM: General appearance: NAD, pleasant. HEENT: NC/AT, nasal congestion absent, no oral lesions, membranes moist. Leon IV. NECK: ROM nml.. Lungs: CTA bilaterally. CV: RRR nl S1, S2, no murmurs. No carotid bruits. Skin: Cool to touch. NEUROLOGICAL EXAM: General: Awake, alert, oriented x3 (person,place,time), speech fluent, no dysarthria; comprehension, naming, repetition intact. CN: PERRL, EOMI and without nystagmus, VFF to confrontation, facial sensation and strength are normal and symmetric, hearing is intact to finger rub bilaterally, palate and tongue movements are intact and symmetric. SCM and trapezius strength normal. Motor: Normal tone, bulk and strength (5/5) bilaterally (throughout extremities x4). Coordination: FNF, BOOKER, HTS intact. No tremors. Sensation: LT intact throughout. No evidence of neglect. Gait: Mild wide based due to body habitus but stable. Assessment and Plan: ASSESSMENT/PLAN: 1. HILDA (obstructive sleep apnea) - ICD9: 327.23, ICD10: G47.33 (primary diagnosis) 2. Personal history of multiple sclerosis (HCC) - ICD9: 340, ICD10: G35 3. History of posttraumatic stress disorder (PTSD) - ICD9: V11.8, ICD10: Z86.59 4. Class 3 severe obesity with body mass index (BMI) of 50.0 to 59.9 in adult, unspecified obesity type, unspecified whether serious comorbidity present (HCC) - ICD9: 278.01, V85.43, ICD10: E66.01, Z68.43 Patient with history of HILDA as above, with contributing risk factors of obesity and crowded airway. Currently having issues with PAP as above, resulting in inability to comply with device. Discussed with patient: the physiology of OSAS, medical conditions associated with OSAS (DM, HTN, CAD, Depression, Stroke, Headache...) and treatment options (UPPP, Dental appliances, CPAP...). Will attempt to reduce dryness, by lowering IPAP max to 12 cmH2O based on titration results or essentially placing patient on 12/8 cmH2O. Patient reports side sleeper and based on titration, this should control AHI if remains off supine. I am also concerned that the device is not functioning properly given water remains in the chamber despite a humidifier setting of 8, and would ask Willie ([facility]) to evaluate the device for malfunction. Patient will follow up in 6 weeks to see if improves. Advised patient to avoid activities that could harm self or others when tired/sleepy, including driving and/or operating heavy machinery. Encouraged weight loss, and continued compliance with other medications. Encouraged follow up with [facility] for MS. 5. Chronic insomnia - ICD9: 780.52, ICD10: F51.04 Multifactorial including pt adjusting for shift work and known mood disorder. Encouraged follow up with those treating the later. Encouraged pt to avoid naps or separate sleep times daily with focus on one single sleep time. Alexander Espinoza MD I spent a total of 45+ minutes on the date of the service which included preparing to see the patient, [id number] patient care, completing clinical documentation, obtaining and/or reviewing separately obtained history, performing a medically appropriate examination, counseling and educating the patient/family/caregiver, ordering medications, tests, or procedures, independently interpreting results (not separately reported), and communicating results to the patient/family/caregiver. 03/02/2023 PROMIS Global Health Physical Health Summary Physical health: Poor Everyday physical activity, ability: Mostly Fatigue: Severe Pain level: 9 General health: Poor Social activities/roles, ability: Poor Physical Health T-Score (Poor) Physical Health Percentile PROMIS Global Health Mental Health Summary Quality of life: Poor Mental health (mood,thinking): Poor Social satisfaction: Poor Emotional problems (anxious,depressed): Always Mental Health T-Score (Poor) Mental Health Percentile PHQ-9 Score: 14(Moderate Depression) PHQ-9 Self-Harm: Not at all Percentiles provide an indication of how a patient's score ranks in relation to the [place] general population. > 31st percentile is within normal limits or better *< 31st percentile is at least SD worse than population, which may be clinically relevant < 16th percentile is at least 1 SD worse than population and warrants attention Sleep Apnea Probability Snores loudly: Tired, fatigued or sleepy in daytime: Stops breathing or choking/gasping during sleep: High blood pressure: Sleep Apnea Probability Score: (Sleep study not recommended) documented in this encounter [facility] 03-22-2023 Miscellaneous Notes New script sent Pharmacy Issue / Patient called said [facility] in [place] [phone] needs to know what kind of BLOOD GLUCOSE TEST needs to be reordered? (One Touch Ultra 2 is the machine she uses) She can be reached at [phone] Please advise documented in this encounter [facility] 03-10-2023 History of Present illness Narrative Images from the original note were not included. Karishma Pickard 38 y.o. HPI: The patient was seen and examined today for her annual exam. Patient states that her bleeding is improved on the IUD however she still has significant pelvic pain that appears to be cyclic. She also has concerns about some cysts/boils in her groin area. Patient working with the weight loss center and hopes to lose weight. She does have some mild incontinence with cough/sneeze/laugh. Patient's last menstrual period was 03/09/2023 (approximate). Regular Periods: no, see HPI, Mirena in place 2021 STD History: no, requests screening Control: Mirena Family History of Breast, Ovarian , Colon or Uterine Cancer: Yes breast cancer, discussed MyRisk at previous visit Preventative Health Testing: Date of Last Pap Smear: 2020 neg cotesting Abnormal Pap Smear History: no Colposcopy History: n/a Mammogram: age 42 Colonoscopy per pCP HPV vaccine unsure OB History Para Term AB Living 0 0 0 0 0 0 SAB IAB Ectopic Multiple Live Births 0 0 0 0 0 Past Medical History: Diagnosis Date Abnormal uterine bleeding (AUB) SCHEDULED FOR THE SURGERY ON 09/01/21 Anxiety Bronchitis USES INHALERS Chronic tonsillitis Current every day smoker Daytime sleepiness Depression Diabetes (HCC) Difficulty sleeping Fatigue Gastroesophageal reflux disease without esophagitis Generalized pain H/O urinary tract infection Heart burn High blood pressure Leukocytosis Memory difficulty Morbid obesity (HCC) Muscle weakness HILDA (obstructive sleep apnea) DOES NOT WEAR BIPAP Pain Pain Pain management Snoring SOB (shortness of breath) Tobacco abuse Past Surgical History: Procedure Laterality Date ABLATION COLPOCLESIS Left 02/26/2022 ABLATION COLPOCLESIS Right 07/29/2022 APPENDECTOMY 2010 [facility] CHOLECYSTECTOMY 07/21/2017 dr. thorpe / [facility] ELBOW SURGERY 06/02/2017 [facility] - ULNAR NERVE HYSTEROSCOPY 09/01/2021 Biopsy endometrium, IUD insertion TONSILLECTOMY (HISTORICAL) 2010 [facility] Review of Systems REVIEW OF SYSTEMS: Gen: denies weight loss, fatigue, fevers/chills GI: denies change in appetite, bloating, pain, lumps/masses, change in bowel/bladder habits Urinary: denies dysuria, frequency, hematuria, incontinence : see HPI Objective: Ht 5' 7 (1.702 m) Wt (!) 334 lb (152 kg) LMP 03/09/2023 (Approximate) BMI 52.31 kg/m Physical Exam Gen: normal appearance, NAD Neuro: AAOx3 Psych: normal affect Lungs: normal respiratory effort Heart: normal rate Breasts: No lymphadenopathy, no nipple discharge, no masses, no skin changes External genitalia: normal, no lesions, no skin discoloration, normal introitus Urethral meatus: normal, no diverticulum or irritation present Vagina: normal, no lesions Cervix: no lesions, no motion tenderness, normal appearance Uterus: normal mobility, non tender, normal size, shape and consistency Adnexa: no masses or tenderness bilaterally Bladder: non tender Extremities: no lower extremity edema Assessment: Diagnosis Plan 1. Women's annual routine gynecological examination 2. Screen for STD (sexually transmitted disease) Chlamydia/N.Gonorrhoeae and T. Vaginalis RNA, QL TMA ([facility]) Trichomonas vaginalis RNA, Qualitative, TMA, Female Hepatitis B surface antigen Hepatitis C antibody HIV-1 and HIV-2 Antigen-Antibody Screen RPR HSV Type 1 and Type 2 IgG Antibodies Plan: 1. Perform monthly self breast exam. Exercise at least 30min three times per week. 2. Maintain yearly visits with [facility] for well-woman exam. 3. Establish care with General PCP for routine health maintenance. Counseling Completed: 1. Reviewed bleeding patterns with Mirena, patient still having pelvic pain therefore did offer ultrasound to evaluate for ovarian cyst, etc.; patient will continue to monitor and message and if she needs an ultrasound 2. Discussed urogyn and pelvic floor PT evaluation for incontinence; also discussed that weight loss can help improve symptoms therefore she will focus on weight loss initially and let me know if she needs further intervention 3. Discussed groin cyst/boils, benign appearing, discussed likely can be related to continuously wearing a pad (secondary to incontinence) or sweating; discussed sitz baths and other preventative measures Orders Placed This Encounter Procedures Chlamydia/N.Gonorrhoeae and T. Vaginalis RNA, QL TMA ([facility]) Trichomonas vaginalis RNA, Qualitative, TMA, Female Hepatitis B surface antigen Standing Status: Future Number of Occurrences: 1 Standing Expiration Date: 03/10/2024 Hepatitis C antibody Standing Status: Future Number of Occurrences: 1 Standing Expiration Date: 03/10/2024 HIV-1 and HIV-2 Antigen-Antibody Screen Standing Status: Future Number of Occurrences: 1 Standing Expiration Date: 03/10/2024 RPR Standing Status: Future Number of Occurrences: 1 Standing Expiration Date: 03/10/2024 HSV Type 1 and Type 2 IgG Antibodies Standing Status: Future Number of Occurrences: 1 Standing Expiration Date: 03/10/2024 documented in this encounter [facility] 03-03-2023 Note HNO ID: [id number] Author: Denis Ricketts MD Service: ? Author Type: Physician Type: Progress Notes Filed: 03/03/2023 9:55 AM Note Text: This note was created using [employer]. Subjective Karishma Pickard is a 38 year old female. She rarely monitored her glucose. Medication intake may be erratic as well. She refused metformin, due to history of GI upset. She did not tolerate her CPAP with facial irritation and nasal congestion. She was scheduled with sleep medicine but not till next spring. She was scheduled with [facility] in March, and with her date night caregiver in [place]. She was dealing with depression and scheduled to follow up with [facility]. Review of Systems Constitutional: Negative for fever. HENT: Negative for congestion. Respiratory: Negative for cough and shortness of breath. Cardiovascular: Negative for chest pain, palpitations and leg swelling. Psychiatric/Behavioral: Positive for dysphoric mood. ACTIVE PROBLEM LIST Hilda (Obstructive Sleep Apnea) Fibromyalgia Depression Gerd (Gastroesophageal Reflux Disease) Class 3 Severe Obesity Due to Excess Calories Without Serious Comorbidity With Body Mass Index (Bmi) of 50.0 to 59.9 in Adult ([facility]) Controlled Type 2 Diabetes Mellitus Without Complication, Without Long-Term Current Use of Insulin ([facility]) Ptsd (Post-Traumatic Stress Disorder) Watson (Generalized Anxiety Disorder) Ddd (Degenerative Disc Disease), Lumbar Chronic Bilateral Low Back Pain Without Sciatica Tobacco Use Disorder Leukocytosis Vitamin D Deficiency Social History Tobacco Use Smoking status: Every Day Packs/day: 0.50 Years: 15.00 Additional pack years: 0.00 Total pack years: 7.50 Types: Cigarettes Start date: 06/28/2007 Smokeless tobacco: Never Vaping Use Vaping Use: Never used Substance Use Topics Alcohol use: No Drug use: Never Current Outpatient Medications Medication Sig ergocalciferol 50,000 unit capsule (VITAMIN D2, DRISDOL) Take 1 capsule by mouth one time a week. dapagliflozin (FARXIGA) 5 mg tablet Take 1 tablet by mouth every morning. lisinopril (ZESTRIL) 10 mg tablet Take 1 tablet by mouth once daily. pantoprazole DR (PROTONIX) 40 mg tablet Take 1 tablet by mouth daily before breakfast. cetirizine (ZYRTEC) 10 mg tablet Take 1 tablet by mouth once daily. dulaglutide (TRULICITY) 1.5 mg/0.5 mL pen injector Inject 1.5 mg subcutaneously one time a week. Inject once per week. Discard Pen After ARIPiprazole (ABILIFY) 15 mg tablet Take 15 mg by mouth once daily. divalproex DR (DEPAKOTE) 500 mg EC tablet Take 500 mg by mouth twice daily. rosuvastatin (CRESTOR) 20 mg tablet Take 20 mg by mouth once daily. levonorgestrel (MIRENA) 20 mcg/24 hours (8 yrs) 52 mg IUD 1 Each by INTRAUTERINE route one time only for 1 dose. albuterol (PROVENTIL) 2.5 mg /3 mL (0.083 %) nebulizer solution Use 2.5 mg via nebulizer as needed. albuterol HFA (PROVENTIL HFA, VENTOLIN HFA) 90 mcg/actuation inhaler Inhale 2 Puffs as instructed every 4 hours as needed. baclofen (LIORESAL) 10 mg tablet Take 10 mg by mouth three times daily. PRN busPIRone (BUSPAR) 15 mg tablet Take 15 mg by mouth three times daily. HYDROcodone-acetaminophen (NORCO) 5-325 mg per tablet Take 1 tablet by mouth every 6 hours as needed. ondansetron (ZOFRAN) 4 mg tablet Take 4 mg by mouth every 8 hours as needed. hydrOXYzine HCl (ATARAX) 25 mg tablet Take 25 mg by mouth as needed (Can take 1-4 per day as needed). No current facility-administered medications for this visit. Objective BP (P) 128/82 (BP Site: Left Arm, BP Position: Sitting, BP Cuff Size: Large Adult) Pulse (P) 84 Wt (!) (P) 151 kg (333 lb) LMP 05/09/2017 BMI (P) 53.52 kg/m? No acute distress. Lungs clear. Heart RRR, no murmur or gallop. Extremities: No edema. Mood, behavior, speech within normal limits. Hemoglobin A1C (%) Date Value 12/26/2013 6.1 Hemoglobin A1C (POCT) (%) Date Value 03/03/2023 9.6 Assessment and Plan 1. Controlled type 2 diabetes mellitus without complication, without long-term current use of insulin ([facility]) - ICD9: 250.00, ICD10: E11.9 (primary diagnosis) - Worsening control - HEMOGLOBIN A1C (POC) - BLOOD GLUCOSE TEST STRIPS - LANCETS - DAPAGLIFLOZIN PROPANEDIOL 10 MG TABLET. Dose increased. - GLIPIZIDE ER 5 MG TABLET, EXTENDED RELEASE 24 HR. New medication. Discussed medication dosage, usage, goals of therapy, and side effects. We discussed hypoglycemia and remedy. - Patient did not continue TRULICITY. - BASIC METABOLIC PNL - HGB A1C 2. Class 3 severe obesity due to excess calories without serious comorbidity with body mass index (BMI) of 50.0 to 59.9 in adult ([facility]) - ICD9: 278.01, V85.43, ICD10: E66.01, Z68.43 Weight increasing - Behavioral intervention 3. Depression, unspecified depression type - ICD9: 311, ICD10: F32.A She will see her mental health provider. 4. Need for influenza vaccinatio (more content not included)... [facility] 03-03-2023 History of Present illness Narrative This note was created using Konkurar[employer]. Subjective Karishma Pickard is a 38 year old female. She rarely monitored her glucose. Medication intake may be erratic as well. She refused metformin, due to history of GI upset. She did not tolerate her CPAP with facial irritation and nasal congestion. She was scheduled with sleep medicine but not till next spring. She was scheduled with [facility] in March, and with her date night caregiver in [place]. She was dealing with depression and scheduled to follow up with [facility]. Review of Systems Constitutional: Negative for fever. HENT: Negative for congestion. Respiratory: Negative for cough and shortness of breath. Cardiovascular: Negative for chest pain, palpitations and leg swelling. Psychiatric/Behavioral: Positive for dysphoric mood. ACTIVE PROBLEM LIST Hilda (Obstructive Sleep Apnea) Fibromyalgia Depression Gerd (Gastroesophageal Reflux Disease) Class 3 Severe Obesity Due to Excess Calories Without Serious Comorbidity With Body Mass Index (Bmi) of 50.0 to 59.9 in Adult ([facility]) Controlled Type 2 Diabetes Mellitus Without Complication, Without Long-Term Current Use of Insulin ([facility]) Ptsd (Post-Traumatic Stress Disorder) Watson (Generalized Anxiety Disorder) Ddd (Degenerative Disc Disease), Lumbar Chronic Bilateral Low Back Pain Without Sciatica Tobacco Use Disorder Leukocytosis Vitamin D Deficiency Social History Tobacco Use Smoking status: Every Day Packs/day: 0.50 Years: 15.00 Additional pack years: 0.00 Total pack years: 7.50 Types: Cigarettes Start date: 06/28/2007 Smokeless tobacco: Never Vaping Use Vaping Use: Never used Substance Use Topics Alcohol use: No Drug use: Never Current Outpatient Medications Medication Sig ergocalciferol 50,000 unit capsule (VITAMIN D2, DRISDOL) Take 1 capsule by mouth one time a week. dapagliflozin (FARXIGA) 5 mg tablet Take 1 tablet by mouth every morning. lisinopril (ZESTRIL) 10 mg tablet Take 1 tablet by mouth once daily. pantoprazole DR (PROTONIX) 40 mg tablet Take 1 tablet by mouth daily before breakfast. cetirizine (ZYRTEC) 10 mg tablet Take 1 tablet by mouth once daily. dulaglutide (TRULICITY) 1.5 mg/0.5 mL pen injector Inject 1.5 mg subcutaneously one time a week. Inject once per week. Discard Pen After ARIPiprazole (ABILIFY) 15 mg tablet Take 15 mg by mouth once daily. divalproex DR (DEPAKOTE) 500 mg EC tablet Take 500 mg by mouth twice daily. rosuvastatin (CRESTOR) 20 mg tablet Take 20 mg by mouth once daily. levonorgestrel (MIRENA) 20 mcg/24 hours (8 yrs) 52 mg IUD 1 Each by INTRAUTERINE route one time only for 1 dose. albuterol (PROVENTIL) 2.5 mg /3 mL (0.083 %) nebulizer solution Use 2.5 mg via nebulizer as needed. albuterol HFA (PROVENTIL HFA, VENTOLIN HFA) 90 mcg/actuation inhaler Inhale 2 Puffs as instructed every 4 hours as needed. baclofen (LIORESAL) 10 mg tablet Take 10 mg by mouth three times daily. PRN busPIRone (BUSPAR) 15 mg tablet Take 15 mg by mouth three times daily. HYDROcodone-acetaminophen (NORCO) 5-325 mg per tablet Take 1 tablet by mouth every 6 hours as needed. ondansetron (ZOFRAN) 4 mg tablet Take 4 mg by mouth every 8 hours as needed. hydrOXYzine HCl (ATARAX) 25 mg tablet Take 25 mg by mouth as needed (Can take 1-4 per day as needed). No current facility-administered medications for this visit. Objective BP (P) 128/82 (BP Site: Left Arm, BP Position: Sitting, BP Cuff Size: Large Adult) Pulse (P) 84 Wt (!) (P) 151 kg (333 lb) LMP 05/09/2017 BMI (P) 53.52 kg/m No acute distress. Lungs clear. Heart RRR, no murmur or gallop. Extremities: No edema. Mood, behavior, speech within normal limits. Hemoglobin A1C (%) Date Value 12/26/2013 6.1 Hemoglobin A1C (POCT) (%) Date Value 03/03/2023 9.6 Assessment and Plan 1. Controlled type 2 diabetes mellitus without complication, without long-term current use of insulin ([facility]) - ICD9: 250.00, ICD10: E11.9 (primary diagnosis) - Worsening control - HEMOGLOBIN A1C (POC) - BLOOD GLUCOSE TEST STRIPS - LANCETS - DAPAGLIFLOZIN PROPANEDIOL 10 MG TABLET. Dose increased. - GLIPIZIDE ER 5 MG TABLET, EXTENDED RELEASE 24 HR. New medication. Discussed medication dosage, usage, goals of therapy, and side effects. We discussed hypoglycemia and remedy. - Patient did not continue TRULICITY. - BASIC METABOLIC PNL - HGB A1C 2. Class 3 severe obesity due to excess calories without serious comorbidity with body mass index (BMI) of 50.0 to 59.9 in adult ([facility]) - ICD9: 278.01, V85.43, ICD10: E66.01, Z68.43 Weight increasing - Behavioral intervention 3. Depression, unspecified depression type - ICD9: 311, ICD10: F32.A She will see her mental health provider. 4. Need for influenza vaccination - ICD9: V04.81, ICD10: Z23 - INFLUENZA VACCINE, AGE 6 MO - 64 YR, QUADRIVALENT (AFLURIA, FLULAVAL, FLUZONE) 5. HILDA (obstructive sleep apnea) - ICD9: 327.23, ICD10: G47.33 - Intolerant to CPAP. - Cancellation list for sleep medicine. 6. Vitamin D deficiency - ICD9: 268.9, ICD10: E55.9 Recheck on supplementation. - VITAMIN D 25 HYDROXY Denis Ricketts MD documented in this encounter [facility] 02-01-2023 Miscellaneous Notes Noted. Thank you. Christiano Hough DO Cancelling apt. see 12/09 phone note. Grazyna Karimi LPN Karishma Pickard would like to cancel the following appointments: Dr. Mohsen Hough DO in [facility] ([phone]), 02/02/2023 10:10 AM Comments: Don't feel it is needed at this time will continue to keep checking up with pcp and go from there, thank you for your time and understanding Pt sent the above message via and called in to cancel apt. Pt declined to reschedule stating she will follow up with her PCP documented in this encounter [facility] 01-27-2023 Miscellaneous Notes Reason for call: High blood sugar readings Outcome: Advised to Go to ED Now per Dr. Ricketts. Patient verbalized understanding and is agreeable to the plan. Reason for Disposition Patient sounds very sick or weak to the triager Per nursing judgment. Answer Assessment - Initial Assessment Questions 1. BLOOD GLUCOSE: 341 blood sugar at 9:15 pm , highest blood sugar 402 at 8 pm today 2. ONSET: patient states yesterday but unable to provide her blood sugar reading for yesterday. Today at 8 pm blood sugar 402, 9:15 pm 341 3. USUAL RANGE: Patient states 110-135 4. KETONES: N/A 5. TYPE 1 or 2: Type 2 diabetic 6. INSULIN: Patient does not use insulin 7. DIABETES PILLS: Patient states she has not taken medication since Wednesday01/22/2023, at 4 am today 01/27/2023 she took 3 tabs (15 mg) of farxiga, patient took another 3 tabs (15 mg) at 8 pm. Patient is only suppose to take 1 tab once a day in the morning per epic. 8. OTHER SYMPTOMS: Dizziness, lightheadedness, nauseous and weakness 9. : Last menstrual cycle 01/03/2023, patient denies Protocols used: Diabetes - High Blood [id number] documented in this encounter [facility] 12-21-2022 Miscellaneous Notes PATIENT NOTIFIED OF SAME. Called and left a voicemail for the Patient to call back and ask for a nurse to receive the providers message. Chely Ferguson RN Messages from oncology noted. ASSESSMENT/PLAN: 1. Microscopic hematuria - ICD9: 599.72, ICD10: R31.29 Repeat in one week. - URINALYSIS, WITH MICROSCOPIC Denis Ricketts MD Patient is aware of all information and is aware that I will forward this note to her PCP. Tawny Yu LPN Message left for patient to contact office for all information. Tawny Yu LPN Then I recommend she follows up with her PCP for another UA as soon as her menses is finished. Continue monitoring CBC over time. No acute need for phlebotomy. Myeloproliferative neoplasm panel was negative so extremely low likelihood of polycythemia vera. 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 She needs smoking cessation counseling. She also needs her sleep apnea treated. Christiano Hough DO Patient denies any urinary symptoms, states she was spotting (period) last week. She does have an IUD but states sometimes she still spots. Tawny Yu LPN Left message for patient to contact office. Tawny Yu LPN Please see previous phone note. CBC on 12/08 showed hematocrit under 50%. No urgent need for phlebotomy. She needs to quit smoking. Also, her UA demonstrated hematuria. If she having any bladder infection symptoms such as dysuria, urinary frequency, visible blood in the urine or flank pain? Christiano Hough DO documented in this encounter [facility] 12-17-2022 Note HNO ID: [id number] Author: Denis Ricketts MD Service: ? Author Type: Physician Type: Progress Notes Filed: 12/17/2022 12:01 AM Note Text: Patient's request for medication is as follows Requested Prescriptions Signed Prescriptions Disp Refills ergocalciferol 50,000 unit capsule (VITAMIN D2, DRISDOL) 12 capsule 1 Sig: Take 1 capsule by mouth one time a week. Order entered - please phone pharmacy and notify patient. Denis Ricketts MD [facility] 12-17-2022 History of Present illness Narrative Patient's request for medication is as follows Requested Prescriptions Signed Prescriptions Disp Refills ergocalciferol 50,000 unit capsule (VITAMIN D2, DRISDOL) 12 capsule 1 Sig: Take 1 capsule by mouth one time a week. Order entered - please phone pharmacy and notify patient. Denis Ricketts MD documented in this encounter [facility] 12-08-2022 Note HNO ID: [id number] Author: RT Alfredo(R) Service: Nuclear Medicine Author Type: Technologist Type: Progress Notes Filed: 12/08/2022 10:40 AM Note Text: Radiology Service Progress Note PATIENT NAME: Karishma Pickard DATE OF SERVICE: December 08, 2022 TIME: 10:33 AM PATIENT IDENTITY VERIFICATION COMPLETED USING TWO (2) IDENTIFIERS: Name and Date of confirmed by patient verbally. FALL SCREENING: Has the patient had 2 falls in the last year or 1 fall with injury or currently using an Ambulatory Assistive Device (Walker, Cane, Wheelchair, Crutches, etc.)? No PATIENT GENDER DATA: Female. status: : No status: NO. PATIENT RELEVANT IMPLANT DATA REVIEWED: Not Applicable RADIOLOGY DEPARTMENT: General X-ray: Exam(s) Completed: Chest X-Ray PERIPHERAL IV DATA: Not applicable SIGNED BY: RT Alfredo(R) December 08, 2022 10:33 AM [facility] 12-08-2022 Note HNO ID: [id number] Author: Denis Ricketts MD Service: ? Author Type: Physician Type: Progress Notes Filed: 12/08/2022 10:18 AM Note Text: This note was created using NoteWriter. Subjective Patient presents with: 4 month follow-up Karishma Pickard is a 37 year old female who is new to me. She established care in July from Dr. Noyola in [place]. She had no new concerns. Her diabetes mellitus was controlled. She had a sleep study recently at [facility] and was waiting for a new CPAP machine. She saw hematology for worsening chronic leukocytosis, and this was idiopathic at this time. She had chronic pleuritic left upper abdominal/chest pain. She had a negative stress test in [facility] last year. Tachycardia was common for her. She goes to [facility] in [place] for mental health care management, Dr. Mac for gynecology at [facility], Dr. Ravinder Leavitt here in [place] for pain management, and [facility] for eye examinations. Review of Systems Constitutional: Negative for chills, fatigue and fever. Respiratory: Negative for cough, shortness of breath and wheezing. Cardiovascular: Positive for chest pain. Negative for palpitations and leg swelling. Gastrointestinal: Negative for abdominal pain, nausea and vomiting. Genitourinary: Negative for difficulty urinating. Musculoskeletal: Positive for arthralgias and back pain. Neurological: Negative for dizziness and headaches. ACTIVE PROBLEM LIST Hilda (Obstructive Sleep Apnea) Fibromyalgia Depression Gerd (Gastroesophageal Reflux Disease) Class 3 Severe Obesity Due to Excess Calories Without Serious Comorbidity With Body Mass Index (Bmi) of 50.0 to 59.9 in Adult ([facility]) Controlled Type 2 Diabetes Mellitus Without Complication, Without Long-Term Current Use of Insulin ([facility]) Ptsd (Post-Traumatic Stress Disorder) Watson (Generalized Anxiety Disorder) Ddd (Degenerative Disc Disease), Lumbar Chronic Bilateral Low Back Pain Without Sciatica Tobacco Use Disorder PAST SURGICAL HISTORY Procedure Laterality Date APPENDECTOMY 08/2010 CHOLECYSTECTOMY HX 07/21/[address] Thorpe. [facility], DIAG AND/OR THERAPEUTIC NEUROPLASTY AND/TRANSPOSITION ULNAR NERVE ELBOW Left 06/02/2017 Left Ulnar nerve decompression NRV DESTR RFA, CHEM OTHER Left 06/2022 TONSILLECTOMY HX Current Outpatient Medications Medication Sig dapagliflozin (FARXIGA) 5 mg tablet Take 1 tablet by mouth every morning. lisinopril (ZESTRIL) 10 mg tablet Take 1 tablet by mouth once daily. pantoprazole DR (PROTONIX) 40 mg tablet Take 1 tablet by mouth daily before breakfast. cetirizine (ZYRTEC) 10 mg tablet Take 1 tablet by mouth once daily. dulaglutide (TRULICITY) 1.5 mg/0.5 mL pen injector Inject 1.5 mg subcutaneously one time a week. Inject once per week. Discard Pen After ARIPiprazole (ABILIFY) 15 mg tablet Take 15 mg by mouth once daily. divalproex DR (DEPAKOTE) 500 mg EC tablet Take 500 mg by mouth twice daily. rosuvastatin (CRESTOR) 20 mg tablet Take 20 mg by mouth once daily. levonorgestrel (MIRENA) 20 mcg/24 hours (8 yrs) 52 mg IUD 1 Each by INTRAUTERINE route one time only for 1 dose. albuterol (PROVENTIL) 2.5 mg /3 mL (0.083 %) nebulizer solution Use 2.5 mg via nebulizer as needed. albuterol HFA (PROVENTIL HFA, VENTOLIN HFA) 90 mcg/actuation inhaler Inhale 2 Puffs as instructed every 4 hours as needed. baclofen (LIORESAL) 10 mg tablet Take 10 mg by mouth three times daily. PRN busPIRone (BUSPAR) 15 mg tablet Take 15 mg by mouth three times daily. HYDROcodone-acetaminophen (NORCO) 5-325 mg per tablet Take 1 tablet by mouth every 6 hours as needed. ondansetron (ZOFRAN) 4 mg tablet Take 4 mg by mouth every 8 hours as needed. hydrOXYzine HCl (ATARAX) 25 mg tablet Take 25 mg by mouth as needed (Can take 1-4 per day as needed). No current facility-administered medications for this visit. Objective BP 137/88 (BP Site: Right Arm, BP Position: Sitting, BP Cuff Size: Large Adult) Pulse 112 Resp 18 Wt (!) 158.3 kg (349 lb) LMP 05/09/2017 BMI 56.09 kg/m? Physical Exam Constitutional: General: She is not in acute distress. Appearance: She is obese. She is not ill-appearing. HENT: Head: Normocephalic. Eyes: Conjunctiva/sclera: Conjunctivae normal. Cardiovascular: Rate and Rhythm: Regular rhythm. Tachycardia present. Heart sounds: No murmur heard. No gallop. Pulmonary: Effort: No respiratory distress. Breath sounds: Normal breath sounds. Abdominal: Palpations: Abdomen is soft. Tenderness: There is no abdominal tenderness. Musculoskeletal: Right lower leg: No edema. Left lower leg: No edema. Neurological: Mental Status: She is alert. EKG RESULTS: sinus tachycardia and inferior infarct pattern, poor R progression, similar to previous EKG. Assessment and Plan 1. Controlled type 2 diabetes mellitus without complication, without long-term current u (more content not included)... [facility] 10-09-2022 Miscellaneous Notes Detailed message left on identified voicemail concerning results, also sent message to pt. Via my chart. If questions please contact office. Mendy Mosquera LPN The myeloproliferative neoplasm panel was negative. So at this time, there is no evidence of an underlying hematologic cause for her increased white blood cell count which has been chronic for over 10 years. It is likely caused by a nonhematologic issue and she should follow-up with her PCP. Christiano Hough DO Patient called in stating that she received a call from what she thought was our office. I did not see anything noted in her chart. Patient thought it was probably about her lab results from 09/23/22. Please call her back with these results and patient asks that if she does not answer her phone to please leave a detailed voice message. Steph Enrique documented in this encounter [facility] 09-23-2022 Note HNO ID: [id number] Author: Susana Moon MD Service: ? Author Type: Physician Type: Progress Notes Filed: 09/23/2022 5:11 PM Note Text: SERVICE DATE: September 23, 2022 CHIEF COMPLAINT: Karishma Pickard is a 37 year old female returning today for follow up of her escobar cytosis INTERVAL HISTORY: Nice 37-year-old female evaluated initially for leukocytosis, thrombocytosis and erythrocytosis. She had negative FISH for BCR/ABL. We checked JAK2 mutation which came back negative Diagnostic Studies: Reviewed CURRENT MEDICATIONS: lisinopril (ZESTRIL) 10 mg tablet Take 1 tablet by mouth once daily. pantoprazole DR (PROTONIX) 40 mg tablet Take 1 tablet by mouth daily before breakfast. cetirizine (ZYRTEC) 10 mg tablet Take 1 tablet by mouth once daily. dapagliflozin (FARXIGA) 5 mg tablet Take 1 tablet by mouth every morning. ARIPiprazole (ABILIFY) 15 mg tablet Take 15 mg by mouth once daily. divalproex DR (DEPAKOTE) 500 mg EC tablet Take 500 mg by mouth twice daily. rosuvastatin (CRESTOR) 20 mg tablet Take 20 mg by mouth once daily. albuterol (PROVENTIL) 2.5 mg /3 mL (0.083 %) nebulizer solution Use 2.5 mg via nebulizer as needed. albuterol HFA (PROVENTIL HFA, VENTOLIN HFA) 90 mcg/actuation inhaler Inhale 2 Puffs as instructed every 4 hours as needed. baclofen (LIORESAL) 10 mg tablet Take 10 mg by mouth three times daily. PRN busPIRone (BUSPAR) 15 mg tablet Take 15 mg by mouth three times daily. nabumetone (RELAFEN) 500 mg tablet Take 500 mg by mouth twice daily. ondansetron (ZOFRAN) 4 mg tablet Take 4 mg by mouth every 8 hours as needed. hydrOXYzine HCl (ATARAX) 25 mg tablet Take 25 mg by mouth as needed (Can take 1-4 per day as needed). dulaglutide (TRULICITY) 1.5 mg/0.5 mL pen injector Inject 1.5 mg subcutaneously one time a week. Inject once per week. Discard Pen After (Patient not taking: Reported on 09/23/2022) levonorgestrel (MIRENA) 20 mcg/24 hours (8 yrs) 52 mg IUD 1 Each by INTRAUTERINE route one time only for 1 dose. HYDROcodone-acetaminophen (NORCO) 5-325 mg per tablet Take 1 tablet by mouth every 6 hours as needed. (Patient not taking: Reported on 09/23/2022) ALLERGIES/INTOLERANCES: ALLERGIES Allergen Reactions Duloxetine Other: See Comments Made her sluggish Made her sluggish Elavil [Amitriptyli* Other: See Comments Made her sluggish Gabapentin Other: See Comments Made her sluggish Made her sluggish ROS: No changes in extensive review of systems PHYSICAL EXAM: BP 137/91 Pulse 110 Temp 36.8 ?C (98.2 ?F) Wt 160.1 kg (353 lb) LMP 05/09/2017 SpO2 98% BMI 56.73 kg/m2 Body mass index is 56.73 kg/m?. ECO No abnormalities on physical exam DATA REVIEW: I personally reviewed the patient's data and medical records. PERTINENT LABS: Reviewed PERTINENT IMAGING: Reviewed ASSESSMENT AND Plan Reactive leukocytosis that has been present for at least 13 years. She also had negative FISH BCR/ABL. This completely excludes CML and should not be retested JAK2 mutation was negative. Myeloproliferative panel is pending. If its negative as hopefully anticipated will instruct patient to return to office as needed and should not have any further hematology evaluation related to this problem. Actually her HANDH and platelet count have normalized this time The patient was able to ask questions and these were answered in detail. Susana Moon MD cc: Susana Ricketts MD [facility] 09-23-2022 History of Present illness Narrative Images from the original note were not included. SERVICE DATE: September 23, 2022 CHIEF COMPLAINT: Karishma Pickard is a 37 year old female returning today for follow up of her escobar cytosis INTERVAL HISTORY: Nice 37-year-old female evaluated initially for leukocytosis, thrombocytosis and erythrocytosis. She had negative FISH for BCR/ABL. We checked JAK2 mutation which came back negative Diagnostic Studies: Reviewed CURRENT MEDICATIONS: lisinopril (ZESTRIL) 10 mg tablet Take 1 tablet by mouth once daily. pantoprazole DR (PROTONIX) 40 mg tablet Take 1 tablet by mouth daily before breakfast. cetirizine (ZYRTEC) 10 mg tablet Take 1 tablet by mouth once daily. dapagliflozin (FARXIGA) 5 mg tablet Take 1 tablet by mouth every morning. ARIPiprazole (ABILIFY) 15 mg tablet Take 15 mg by mouth once daily. divalproex DR (DEPAKOTE) 500 mg EC tablet Take 500 mg by mouth twice daily. rosuvastatin (CRESTOR) 20 mg tablet Take 20 mg by mouth once daily. albuterol (PROVENTIL) 2.5 mg /3 mL (0.083 %) nebulizer solution Use 2.5 mg via nebulizer as needed. albuterol HFA (PROVENTIL HFA, VENTOLIN HFA) 90 mcg/actuation inhaler Inhale 2 Puffs as instructed every 4 hours as needed. baclofen (LIORESAL) 10 mg tablet Take 10 mg by mouth three times daily. PRN busPIRone (BUSPAR) 15 mg tablet Take 15 mg by mouth three times daily. nabumetone (RELAFEN) 500 mg tablet Take 500 mg by mouth twice daily. ondansetron (ZOFRAN) 4 mg tablet Take 4 mg by mouth every 8 hours as needed. hydrOXYzine HCl (ATARAX) 25 mg tablet Take 25 mg by mouth as needed (Can take 1-4 per day as needed). dulaglutide (TRULICITY) 1.5 mg/0.5 mL pen injector Inject 1.5 mg subcutaneously one time a week. Inject once per week. Discard Pen After (Patient not taking: Reported on 09/23/2022) levonorgestrel (MIRENA) 20 mcg/24 hours (8 yrs) 52 mg IUD 1 Each by INTRAUTERINE route one time only for 1 dose. HYDROcodone-acetaminophen (NORCO) 5-325 mg per tablet Take 1 tablet by mouth every 6 hours as needed. (Patient not taking: Reported on 09/23/2022) ALLERGIES/INTOLERANCES: ALLERGIES Allergen Reactions Duloxetine Other: See Comments Made her sluggish Made her sluggish Elavil [Amitriptyli* Other: See Comments Made her sluggish Gabapentin Other: See Comments Made her sluggish Made her sluggish ROS: No changes in extensive review of systems PHYSICAL EXAM: BP 137/91 Pulse 110 Temp 36.8 C (98.2 F) Wt 160.1 kg (353 lb) LMP 05/09/2017 SpO2 98% BMI 56.73 kg/m2 Body mass index is 56.73 kg/m . ECO No abnormalities on physical exam DATA REVIEW: I personally reviewed the patient's data and medical records. PERTINENT LABS: Reviewed PERTINENT IMAGING: Reviewed ASSESSMENT AND Plan Reactive leukocytosis that has been present for at least 13 years. She also had negative FISH BCR/ABL. This completely excludes CML and should not be retested JAK2 mutation was negative. Myeloproliferative panel is pending. If its negative as hopefully anticipated will instruct patient to return to office as needed and should not have any further hematology evaluation related to this problem. Actually her H&H and platelet count have normalized this time The patient was able to ask questions and these were answered in detail. Susana Moon MD cc: Susana Ricketts MD documented in this encounter [facility] 09-04-2022 Miscellaneous Notes Pt seen LIFT OPERATOR 08/10/22. Next appt is 12/08/22. Patient has been identified by name and date of : Yes Requested Prescriptions Pending Prescriptions Disp Refills lisinopril (ZESTRIL) 10 mg tablet 90 tablet 3 Sig: Take 1 tablet by mouth once daily. pantoprazole DR (PROTONIX) 40 mg tablet 90 tablet 3 Sig: Take 1 tablet by mouth daily before breakfast. cetirizine (ZYRTEC) 10 mg tablet 90 tablet 3 Sig: Take 1 tablet by mouth once daily. RX INSTRUCTIONS: Patient needs these by tomorrow. Patient aware RX will be sent to pharmacy. No need to notify patient. Cheryl Morales Pss documented in this encounter [facility] 09-02-2022 Note HNO ID: [id number] Author: Susana Moon MD Service: ? Author Type: Physician Type: Progress Notes Filed: 09/02/2022 10:04 AM Note Text: SERVICE DATE: September 02, 2022 CHIEF COMPLAINT: Karishma Pickard is a 37 year old female referred by Ginny Mcrae, for my opinion regarding the management of leukocytosis, thrombocytosis and erythrocytosis. The impression and plan will be communicated back via the EMR or under separate cover letter if necessary. PMH, medications and allergies personally reviewed by me today. Any changes documented in appropriate section.. History was obtained from the patient and from review of the patient's old medical records. HISTORY OF PRESENT ILLNESS: Very pleasant 37-year-old white female who is here for persistent leukocytosis, more recenty thrombocytosis and most recently erythrocytosis. Patient smokes, is overweight and takes prednisone occasionally. She was also evaluated by a hydraulics teacher previously around 2017. BCR/ABL by FISH analysis was done and was not detected. Patient increased smoking recently due to increased stress. She also get recurrent upper respiratory inflammation/infection Patient is scheduled for repeat sleep study. 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 Thorpe. [facility] DANDC, DIAG AND/OR THERAPEUTIC NEUROPLASTY AND/TRANSPOSITION ULNAR NERVE ELBOW Left 06/02/2017 Left Ulnar nerve decompression NRV DESTR RFA, CHEM OTHER Left 06/2022 TONSILLECTOMY HX CURRENT MEDICATIONS: dapagliflozin (FARXIGA) 5 mg tablet Take 1 tablet by mouth every morning. dulaglutide (TRULICITY) 1.5 mg/0.5 mL pen injector Inject 1.5 mg subcutaneously one time a week. Inject once per week. Discard Pen After cetirizine (ZYRTEC) 10 mg tablet Take 10 mg by mouth once daily. ARIPiprazole (ABILIFY) 15 mg tablet Take 15 mg by mouth once daily. divalproex DR (DEPAKOTE) 500 mg EC tablet Take 500 mg by mouth twice daily. rosuvastatin (CRESTOR) 20 mg tablet Take 20 mg by mouth once daily. albuterol (PROVENTIL) 2.5 mg /3 mL (0.083 %) nebulizer solution Use 2.5 mg via nebulizer as needed. albuterol HFA (PROVENTIL HFA, VENTOLIN HFA) 90 mcg/actuation inhaler Inhale 2 Puffs as instructed every 4 hours as needed. baclofen (LIORESAL) 10 mg tablet Take 10 mg by mouth three times daily. PRN busPIRone (BUSPAR) 15 mg tablet Take 15 mg by mouth three times daily. lisinopril (ZESTRIL, PRINIVIL) 10 mg tablet Take 1 tablet by mouth once daily. nabumetone (RELAFEN) 500 mg tablet Take 500 mg by mouth twice daily. pantoprazole DR (PROTONIX) 40 mg tablet Take 1 tablet by mouth daily before breakfast. HYDROcodone-acetaminophen (NORCO) 5-325 mg per tablet Take 1 tablet by mouth every 6 hours as needed. ondansetron (ZOFRAN) 4 mg tablet Take 4 mg by mouth every 8 hours as needed. hydrOXYzine HCl (ATARAX) 25 mg tablet Take 25 mg by mouth as needed (Can take 1-4 per day as needed). levonorgestrel (MIRENA) 20 mcg/24 hours (8 yrs) 52 mg IUD 1 Each by INTRAUTERINE route one time only for 1 dose. ALLERGIES/INTOLERANCES: ALLERGIES Allergen Reactions Duloxetine Other: See Comments Made her sluggish Made her sluggish Elavil [Amitriptyli* Other: See Comments Made her sluggish Gabapentin Other: See Comments Made her sluggish Made her sluggish FAMILY HISTORY: FAMILY HISTORY Problem Relation Age of Onset Multiple Sclerosis Mother Stroke Father Kidney Disease Brother Multiple Sclerosis Maternal Grandmother Heart Paternal Grandmother Hyperlipidemia Paternal Grandmother Arthritis Paternal Grandfather Cancer Paternal Grandfather skin Emphysema Paternal Grandfather Prostate Cancer Paternal Grandfather other (ALS) Paternal Grandfather other (multiple sclerosis) Maternal Aunt SOCIAL HISTORY: Social History Tobacco Use Smoking status: Every Day Packs/day: 0.50 Years: 15.00 Pack years: 7.50 Types: Cigarettes Start date: 06/28/2007 Smokeless tobacco: Never Vaping Use Vaping Use: Never used Substance Use Topics Alcohol use: No Drug use: Never ROS: Patient denies dizziness, chest tightness, numbness or tingling or unusual headaches She has recurrent symptoms of upper respiratory inflammation and/or inf (more content not included)... [facility] 08-18-2022 Miscellaneous Notes Patient notified, asking to be sent to [facility]. Med list updated. Take 1/2 tablet of the Farxiga 10 mg tablet. Where does she want the new dose to go? Ginny Mcrae APRN.UNIQUE Pt called in and reports her weight management provider decreased her Trulicity from 3 mg down to 1.75 mg du to her BS being too low. She states that provider told her she needed to contact her PCP and get her Farxiga decreased from 10 mg daily to 5 mg due to her BS being too low. Please call Pt and advise. documented in this encounter [facility] 08-17-2022 Miscellaneous Notes FYI-Per previous hydraulics teacher at [facility]- Labs without marked abnormality. Elevated wbc and slight elevation in plt count due to chronic inflammation from pain, smoking, weight, stress. No obvious evidence of myeloproliferative process. Can continue to f/u with PCP and return if marked change in blood counts in future. Patient only seen her last hydraulics teacher once and that was in 2015, Dr.Bradley Liu. Per Phylicia the nurse, this information can be seen in care everywhere. Phylicia stated I should call the patient to get her scheduled to see when able. I called and spoke to Karishma and scheduled her per her request for 09/02/22 @ 8:30 am, she confirmed this date, time and location. Steph Solis Pss Please request records from previous hydraulics teacher/oncologist. Please contact for that information. Tawny Yu LPN Patient calling stating she is being referred by Ginny Mcrae to hemoc for Thrombocytosis [D75.839] Leukocytosis, unspecified type [D72.829]. Please advise when patient can be seen and call patient to schedule. documented in this encounter [facility] 08-10-2022 Note HNO ID: [id number] Author: Ginny Mcrae APRN.EXPERIENCE SPECIALIST Service: ? Author Type: Nurse Practitioner Type: Progress Notes Filed: 08/10/2022 8:42 AM Note Text: CC: Patient presents with: Establish Care HPI Karishma Pickard is a 37 year old female who presents today for above. Previous PCP DR. Pari Noyola History of PTSD, WATSON and severe depression. Medications managed by psychiatry, Dr. Chito Leija in [place]. She also has counseling once a week. Stable on medications currently. Diabetes: Home blood sugar readings: only checking twice a month, lately has been in the 80's to 90's. Hypoglycemia: No She is compliant with medication(s) and is tolerating med(s) without any side effects. Denies increased thirst, urinary frequency, nocturia, fatigue, unintentional weight loss, blurred vision, numbness, tingling or pain in extremities, ulcers or sores on feet Last Ophthalmology exam was within the past 6 months, goes to the [facility]. She has chronic widespread pain secondary to fibromyalgia and lumbar DDD. Pain management- Carrie Jordan. She recently had lumbar nerve ablation in June, will have another one on the right side this time next month. Pain is well controlled with current therapies. HILDA: Is not compliant with BiPAP, difficult to wear. She was supposed to have another sleep study done since last was more than 10 years ago but couldn't travel as far as she needed to go to have done. Reports snoring, un-refreshed sleep, insomnia. Denies witnessed apnea or excessive daytime drowsiness. 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 Thorpe. [facility] DANDC, DIAG AND/OR THERAPEUTIC NEUROPLASTY AND/TRANSPOSITION ULNAR NERVE ELBOW Left 06/02/2017 Left Ulnar nerve decompression NRV DESTR RFA, CHEM OTHER Left 06/2022 TONSILLECTOMY HX ALLERGIES Duloxetine, Elavil [Amitriptyline Hcl], and Gabapentin MEDICATIONS cetirizine (ZYRTEC) 10 mg tablet Take 10 mg by mouth once daily. ARIPiprazole (ABILIFY) 15 mg tablet Take 15 mg by mouth once daily. divalproex DR (DEPAKOTE) 500 mg EC tablet Take 500 mg by mouth twice daily. rosuvastatin (CRESTOR) 20 mg tablet Take 20 mg by mouth once daily. dulaglutide (TRULICITY) 3 mg/0.5 mL pen injector Inject 3 mg subcutaneously one time a week. levonorgestrel (MIRENA) 20 mcg/24 hours (8 yrs) 52 mg IUD 1 Each by INTRAUTERINE route one time only for 1 dose. albuterol (PROVENTIL) 2.5 mg /3 mL (0.083 %) nebulizer solution 2.5 mg. albuterol HFA (PROVENTIL HFA, VENTOLIN HFA) 90 mcg/actuation inhaler Inhale 2 Puffs as instructed. baclofen (LIORESAL) 10 mg tablet Take 10 mg by mouth three times daily. PRN busPIRone (BUSPAR) 15 mg tablet Take 15 mg by mouth three times daily. dapagliflozin (FARXIGA) 5 mg tablet Take 10 mg by mouth every morning. lisinopril (ZESTRIL, PRINIVIL) 10 mg tablet Take 1 tablet by mouth once daily. nabumetone (RELAFEN) 500 mg tablet Take 500 mg by mouth twice daily. pantoprazole DR (PROTONIX) 40 mg tablet Take 1 tablet by mouth daily before breakfast. HYDROcodone-acetaminophen (NORCO) 5-325 mg per tablet Take 1 tablet by mouth every 6 hours as needed. ondansetron (ZOFRAN) 4 mg tablet Take 4 mg by mouth every 8 hours as needed. hydrOXYzine HCl (ATARAX) 25 mg tablet Take 25 mg by mouth as needed (Can take 1-4 per day as needed). FAMILY HISTORY Problem Relation Age of Onset Multiple Sclerosis Mother Stroke Father Multiple Sclerosis Maternal Grandmother Heart Paternal Grandmother Diabetes Paternal Grandmother Hyperlipidemia Paternal Grandmother Arthritis Paternal Grandfather Cancer Paternal Grandfather skin Emphysema Paternal Grandfather other (multiple sclerosis) Maternal Aunt Social History Tobacco Use Smoking status: Every Day Packs/day: 0.50 Years: 15.00 Pack years: 7.50 Types: Cigarettes Start date: 06/28/2007 Smokeless tobacco: Never Vaping Use Vaping Use: Never used Substance Use Topics Alcohol use: No Drug use: Never PHYSICAL EXAM BP 126/72 Pulse 120 Resp 20 Ht 167.6 cm (5' 6 ) Wt (!) 156.9 kg (346 lb) LMP 05/09/2017 BMI 55.85 kg/m? General Appearance: well appearing, in no acut (more content not included)... [facility] 08-10-2022 History of Present illness Narrative CC: Patient presents with: Establish Care HPI Karishma Pickard is a 37 year old female who presents today for above. Previous PCP DR. Pari Noyola History of PTSD, WATSON and severe depression. Medications managed by psychiatry, Dr. Chito Leija in [place]. She also has counseling once a week. Stable on medications currently. Diabetes: Home blood sugar readings: only checking twice a month, lately has been in the 80's to 90's. Hypoglycemia: No She is compliant with medication(s) and is tolerating med(s) without any side effects. Denies increased thirst, urinary frequency, nocturia, fatigue, unintentional weight loss, blurred vision, numbness, tingling or pain in extremities, ulcers or sores on feet Last Ophthalmology exam was within the past 6 months, goes to the [facility]. She has chronic widespread pain secondary to fibromyalgia and lumbar DDD. Pain management- Carrie Prebish. She recently had lumbar nerve ablation in June, will have another one on the right side this time next month. Pain is well controlled with current therapies. HILDA: Is not compliant with BiPAP, difficult to wear. She was supposed to have another sleep study done since last was more than 10 years ago but couldn't travel as far as she needed to go to have done. Reports snoring, un-refreshed sleep, insomnia. Denies witnessed apnea or excessive daytime drowsiness. 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 Thorpe. [facility] D&C, DIAG AND/OR THERAPEUTIC NEUROPLASTY &/TRANSPOSITION ULNAR NERVE ELBOW Left 06/02/2017 Left Ulnar nerve decompression NRV DESTR RFA, CHEM OTHER Left 06/2022 TONSILLECTOMY HX ALLERGIES Duloxetine, Elavil [Amitriptyline Hcl], and Gabapentin MEDICATIONS cetirizine (ZYRTEC) 10 mg tablet Take 10 mg by mouth once daily. ARIPiprazole (ABILIFY) 15 mg tablet Take 15 mg by mouth once daily. divalproex DR (DEPAKOTE) 500 mg EC tablet Take 500 mg by mouth twice daily. rosuvastatin (CRESTOR) 20 mg tablet Take 20 mg by mouth once daily. dulaglutide (TRULICITY) 3 mg/0.5 mL pen injector Inject 3 mg subcutaneously one time a week. levonorgestrel (MIRENA) 20 mcg/24 hours (8 yrs) 52 mg IUD 1 Each by INTRAUTERINE route one time only for 1 dose. albuterol (PROVENTIL) 2.5 mg /3 mL (0.083 %) nebulizer solution 2.5 mg. albuterol HFA (PROVENTIL HFA, VENTOLIN HFA) 90 mcg/actuation inhaler Inhale 2 Puffs as instructed. baclofen (LIORESAL) 10 mg tablet Take 10 mg by mouth three times daily. PRN busPIRone (BUSPAR) 15 mg tablet Take 15 mg by mouth three times daily. dapagliflozin (FARXIGA) 5 mg tablet Take 10 mg by mouth every morning. lisinopril (ZESTRIL, PRINIVIL) 10 mg tablet Take 1 tablet by mouth once daily. nabumetone (RELAFEN) 500 mg tablet Take 500 mg by mouth twice daily. pantoprazole DR (PROTONIX) 40 mg tablet Take 1 tablet by mouth daily before breakfast. HYDROcodone-acetaminophen (NORCO) 5-325 mg per tablet Take 1 tablet by mouth every 6 hours as needed. ondansetron (ZOFRAN) 4 mg tablet Take 4 mg by mouth every 8 hours as needed. hydrOXYzine HCl (ATARAX) 25 mg tablet Take 25 mg by mouth as needed (Can take 1-4 per day as needed). FAMILY HISTORY Problem Relation Age of Onset Multiple Sclerosis Mother Stroke Father Multiple Sclerosis Maternal Grandmother Heart Paternal Grandmother Diabetes Paternal Grandmother Hyperlipidemia Paternal Grandmother Arthritis Paternal Grandfather Cancer Paternal Grandfather skin Emphysema Paternal Grandfather other (multiple sclerosis) Maternal Aunt Social History Tobacco Use Smoking status: Every Day Packs/day: 0.50 Years: 15.00 Pack years: 7.50 Types: Cigarettes Start date: 06/28/2007 Smokeless tobacco: Never Vaping Use Vaping Use: Never used Substance Use Topics Alcohol use: No Drug use: Never PHYSICAL EXAM BP 126/72 Pulse 120 Resp 20 Ht 167.6 cm (5' 6 ) Wt (!) 156.9 kg (346 lb) LMP 05/09/2017 BMI 55.85 kg/m General Appearance: well appearing, in no acute distress, alert Lungs: Lungs clear to auscultation. No wheezing, rhonchi, rales. Heart: RRR without murmur, gallop, or rubs. No ectopy Feet:Shoes and socks removed, No deformities, ulcers, calluses, normal distal pulses, sensitive to 10 gm monofilament, and vibratory perception normal Health maintenance reviewed with patient: DTAP,TDAP,TD(1 - Tdap) Never done PAP TESTING Never done HPV TESTING Never done COVID-19 VACCINE(3 - Booster for Moderna series) due on 02/24/2021 PNEUMOCOCCAL(2 - PCV) due on 03/17/2023 INFLUENZA Completed HEPATITIS C SCREENING Completed HIV SCREENING Completed DATA REVIEWED: Most recent labs ASSESSMENT/PLAN: 1. Controlled type 2 diabetes mellitus without complication, without long-term current use of insulin ([facility]) - ICD9: 250.00, ICD10: E11.9 (primary diagnosis) The patient is new to [place]. - Continue current medications - HGB A1C - CBC + DIFF 2. Chronic bilateral low back pain without sciatica - ICD9: 724.2, 338.29, ICD10: M54.50, G89.29 Stable with current treatments. Follow-up with pain management as instructed 3. Depression, unspecified depression type - ICD9: 311, ICD10: F32.A Stable on current medications. Follow-up with psychiatry as instructed. 4. WATSON (generalized anxiety disorder) - ICD9: 300.02, ICD10: F41.1 As above 5. PTSD (post-traumatic stress disorder) - ICD9: 309.81, ICD10: F43.10 As above 6. DDD (degenerative disc disease), lumbar - ICD9: 722.52, ICD10: M51.36 See #2 7. Fibromyalgia - ICD9: 729.1, ICD10: M79.7 See #2 8. Class 3 severe obesity due to excess calories without serious comorbidity with body mass index (BMI) of 50.0 to 59.9 in adult ([facility]) - ICD9: 278.01, V85.43, ICD10: E66.01, Z68.43 - Discussed need for and benefit of weight loss BMI Readings from Last 1 Encounters: 08/10/22 : 55.85 kg/m - Begin healthy diet consisting of fruits, vegetables and lean proteins. Reduce sugary drinks of artificial juices and sodas and replace with water and low calorie Crystal Light. Healthy Snack alternatives have been discussed - Begin exercise or meaningful activity for 20 minutes at lest 3 times a day 9. HILDA (obstructive sleep apnea) - ICD9: 327.23, ICD10: G47.33 Noncompliant with BiPap, needs repeat sleep study. Will fax order to [facility] per patient request 10. Gastroesophageal reflux disease, unspecified whether esophagitis present - ICD9: 530.81, ICD10: K21.9 Stable 11. Tobacco use disorder - ICD9: 305.1, ICD10: F17.200 - Cessation encouraged. - Physiologic and physical aspects of tobacco addiction as well as strategies for quitting were discussed. - Counseling was given focusing on the harmful effects of this addiction especially given the patient's medical condition(s) which will be worsened because of the chemicals in tobacco. - no desire to quit at this time 12. Encounter for immunization - ICD9: V03.89, ICD10: Z23 - TDAP VACCINE AGE 7+ IM Prescription instructions reviewed with patient as applicable. Potential red flag symptoms discussed with the patient. Reviewed appropriate action plan to take if red flag symptoms occur. Patient agreeable to treatment plan. Ginny Mcrae APRN.CNP documented in this encounter [facility] 07-20-2022 Telephone encounter Note S: Patient spoke with [facility] nurse regarding pelvic pain. B: Onset of symptoms/concern: months. Hx of D&C and mirena IUD placed. A: Pt reports excruciating and intermittent pelvic pain that occurs twice per month. Pt has not had periods/menstrual bleeding for years. Pt tends to use heating pad when pelvic pain is present, partially effective. Pt notices dizziness and trouble walking when pain is severe. R: Recommended an OV for today. Pt is unable to come into the office today. Pt would like to be seen by Dr Mac. Provided pt with Dr Mac's first available appt on 09/02/22 at 10:30 am. Pt added to to appt waiting list. Reviewed reasons to call back or report to ER. Patient understands care advice. No further needs at this time. Patient instructed to call back with new or worsening symptoms. Reason for Disposition [1] Constant abdominal pain AND [2] present > 2 hours Protocols used: Contraception - IUD Symptoms and Weuqyihsc-DOMEZ-NP [facility] 07-20-2022 Miscellaneous Notes S: Patient spoke with [facility] nurse regarding pelvic pain. B: Onset of symptoms/concern: months. Hx of D&C and mirena IUD placed. A: Pt reports excruciating and intermittent pelvic pain that occurs twice per month. Pt has not had periods/menstrual bleeding for years. Pt tends to use heating pad when pelvic pain is present, partially effective. Pt notices dizziness and trouble walking when pain is severe. R: Recommended an OV for today. Pt is unable to come into the office today. Pt would like to be seen by Dr Mac. Provided pt with Dr Mac's first available appt on 09/02/22 at 10:30 am. Pt added to to appt waiting list. Reviewed reasons to call back or report to ER. Patient understands care advice. No further needs at this time. Patient instructed to call back with new or worsening symptoms. Reason for Disposition [1] Constant abdominal pain AND [2] present > 2 hours Protocols used: Contraception - IUD Symptoms and Evuxzmkvf-[id number] documented in this encounter [facility] 06-10-2022 History of Present illness Narrative HPI & PLAN HPI: Patient was contacted today via TeleHealth Visit for follow up for non-surgical weight loss management Weight trend since last visit: lost 5 lbs over 1 m [x] Patient reported weight from home scale. 336 lb [] Patient unable to report weight at this time. This patient's excess weight is causing the following co-morbid conditions at this time:DM Social History: She does notsmoke, and does notdrink alcohol. Current Diet This patient s current diet is: 80% meal plan Her diet contains adequate amounts of protein, adequate amounts of healthy fats, adequate amounts of green, leafy vegetables, and adequate amounts of fruits. Her comfort foods include: none Current Activity This patient currently 30 Minutes. 4 times chair exercise Current Eating Behaviors This patients demonstrates the following behaviors as they relate to her eating: structured She eats approximately 5-6 times per day. Her last meal/snack was at 6 am/pm. Progress Made Towards Goals: 3 month weight goal: 10 6 month weight goal: 30 12 month weight goal: 40 Plan: Obesity stable Continue current management, continue weight loss program DM stable Continue current management, continue weight loss program Will continue trulicity [x] Protein goal of 1g protein per 1 kg of ideal body weight: 75 grams [x] Patient advised to maintain a food/exercise/behavior diary until next physician visit and to bring the completed diary to next visit [] Referred patient to surgical weight loss management program Other: Physician Diet Recommendations given to patient See Follow up Section of today's encounter for next visit and additional scheduling orders Obtain follow up lab work: BARIATRIC; Non Surg Lab orders: No Current Meds Patient's Medications New Prescriptions No medications on file Previous Medications DULAGLUTIDE (TRULICITY) 1.5 MG/0.5ML SOLUTION PEN-INJECTOR INJECT 1.5 MG UNDER THE SKIN 1 (ONE) TIME PER WEEK. Modified Medications No medications on file Discontinued Medications No medications on file Patient is not taking anti-obesity medication. Trulicity 1.5 Patient currently taking Medication for: [] HTN [] CHOL [] GERD [x] DM I spend a total of 20 minutes on the same day of the visit in discussing/counseling the patient regarding the diet and exercise in order to lose weight.Education on the meal plan and 7 rules of eating is provided. Meal prep is encouraged as a foundation of the meal plan. Food journal is encouraged as a feedback system. Exercise and its role in weight loss is explained. Weight loss medications role in weight loss journey is discussed DM Is associated with obesity and weight loss is discussed as a treatment option for DM Full chart review was performed.Clinical documentation is updated and completed. Patient was seen today via Telehealth by agreement and consent in light of the current COVID-19 pandemic. I used the following Telehealth technology: Audio capability only. Total length of call 20 minutes. The patient was offered and advised video for a more comprehensive evaluation, but the patient declined or was unable to use video. Patient location: Home. This patient encounter is appropriate and reasonable under the circumstances given the patient's particular presentation at this time. The patient has been advised of the potential risks and limitations of this mode of treatment (including but not limited to the absence of in-person examination) and has agreed to be treated in a remote fashion in spite of them. Any and all of the patient's/patient's family's questions on this issue have been answered and I have made no promises or guarantees to the patient. The patient has also been advised to contact this office for worsening conditions or problems, and seek emergency medical treatment and/or call 911 if the patient deems either necessary. The patient stated that they are currently in the [facility]. If the patient is a minor, permission has been obtained by the parent or guardian for the patient to receive medical care at this visit. documented in this encounter [facility] 09-01-2021 Hospital Discharge instructions Salome Mac MD - 09/01/2021 Images from the original note were not included. Hysteroscopy With Dilation and Curettage: What to Expect at Home Your Recovery For a hysteroscopy, your doctor guides a lighted tube through your cervix and into your uterus. This helps the doctor see inside your uterus. For a dilation and curettage (D&C), your doctor uses a curved tool, called a curette, to gently scrape tissue from your uterus. After these procedures, you are likely to have a backache or cramps similar to menstrual cramps. Expect to pass small clots of blood from your vagina for the first few days. You may have light vaginal bleeding for several weeks after the D&C. If the doctor filled your uterus with air, your belly may feel full. You may also have shoulder pain right after the procedure. You will probably be able to go back to most of your normal activities in 1 or 2 days. This care sheet gives you a general idea about how long it will take for you to recover. But each person recovers at a different pace. Follow the steps below to get better as quickly as possible. How can you care for yourself at home? Activity Rest when you feel tired. You will probably be able to return to work the day after the procedure. But it depends on what was done and the type of work you do. You may have some light vaginal bleeding. Use sanitary pads until you stop bleeding. Using pads makes it easier to monitor your bleeding. Do not rinse your vagina with fluid (douche). Ask your doctor when it is okay for you to have sex. Diet You can eat your normal diet. If your stomach is upset, try bland, low-fat foods like plain rice, broiled chicken, toast, and yogurt. Drink plenty of fluids (unless your doctor tells you not to). Medicines Your doctor will tell you if and when you can restart your medicines. You will also get instructions about taking any new medicines. If you take aspirin or some other blood thinner, ask your doctor if and when to start taking it again. Make sure that you understand exactly what your doctor wants you to do. Be safe with medicines. Read and follow all instructions on the label. ? If the doctor gave you a prescription medicine for pain, take it as prescribed. ? If you are not taking a prescription pain medicine, ask your doctor if you can take an kwkz-idz-ueeguxs medicine. If your doctor prescribed antibiotics, take them as directed. Do not stop taking them just because you feel better. You need to take the full course of antibiotics. Follow-up care is a singh part of your treatment and safety. Be sure to make and go to all appointments, and call your doctor if you are having problems. It's also a good idea to know your test results and keep a list of the medicines you take. When should you call for help? Call 911 anytime you think you may need emergency care. For example, call if: You passed out (lost consciousness). You have chest pain, are short of breath, or cough up blood. Call your doctor now or seek immediate medical care if: You have pain that does not get better after you take pain medicine. You cannot pass stools or gas. You have bright red vaginal bleeding that soaks one or more pads in an hour, or you have large clots. You have a vaginal discharge that has increased or that smells bad. You are sick to your stomach or cannot drink fluids. You have symptoms of a blood clot in your leg (called a deep vein thrombosis), such as: ? Pain in your calf, back of the knee, thigh, or groin. ? Redness and swelling in your leg. You have signs of infection, such as: ? Increased pain, swelling, warmth, or redness. ? A fever. Watch closely for changes in your health, and be sure to contact your doctor if you have any problems. Where can you learn more? Go to [email or web address] and sign in to your [employer] account. Enter U442 in the Search Health Information box to learn more about Hysteroscopy With Dilation and Curettage: What to Expect at Home. If you do not have an account, please click on the Sign Up Now link. Current as of: December 11, 2020 Content Version: 13.1 [employer]. Care instructions adapted under license by [employer]. If you have questions about a medical condition or this instruction, always ask your healthcare professional. [employer] disclaims any warranty or liability for your use of this information. documented in this encounter [facility] Work Phone: 09-01-2021 History of Present illness Narrative Pt tolerating po fluids and crackers well. documented in this encounter [facility] Work Phone: documented as of this encounter (statuses as of 08/10/2022) [address]23-2012 History of Past illness Narrative* Problem Noted Date Resolved Date Tonsillitis, chronic 09/18/2011 05/28/2017 T/A hypertrophy 09/18/2011 05/28/2017 documented as of this encounter (statuses as of 08/17/2022) [address]-2012 History of Past illness Narrative* Problem Noted Date Resolved Date Tonsillitis, chronic 09/18/2011 05/28/2017 T/A hypertrophy 09/18/2011 05/28/2017 documented as of this encounter (statuses as of 08/18/2022) [facility]2012 History of Past illness Narrative* Problem Noted Date Resolved Date Tonsillitis, chronic 09/18/2011 05/28/2017 T/A hypertrophy 09/18/2011 05/28/2017 documented as of this encounter (statuses as of 09/04/2022) [facility]2012 History of Past illness Narrative* Problem Noted Date Resolved Date Tonsillitis, chronic 09/18/2011 05/28/2017 T/A hypertrophy 09/18/2011 05/28/2017 documented as of this encounter (statuses as of 09/22/2022) [address] History of Past illness Narrative* Problem Noted Date Resolved Date Tonsillitis, chronic 09/18/2011 05/28/2017 T/A hypertrophy 09/18/2011 05/28/2017 documented as of this encounter (statuses as of 09/23/2022) [facility] History of Past illness Narrative* Problem Noted Date Resolved Date Tonsillitis, chronic 09/18/2011 05/28/2017 T/A hypertrophy 09/18/2011 05/28/2017 documented as of this encounter (statuses as of 10/10/2022) [facility] History of Past illness Narrative* Problem Noted Date Resolved Date Tonsillitis, chronic 09/18/2011 05/28/2017 T/A hypertrophy 09/18/2011 05/28/2017 documented as of this encounter (statuses as of 12/17/2022) [address]2012 History of Past illness Narrative* Problem Noted Date Resolved Date Tonsillitis, chronic 09/18/2011 05/28/2017 T/A hypertrophy 09/18/2011 05/28/2017 documented as of this encounter (statuses as of 12/21/2022) [address]2012 History of Past illness Narrative* Problem Noted Date Diagnosed Date Resolved Date Tonsillitis, chronic 09/18/2011 017 T/A hypertrophy 09/18/2011 05/28/2017 documented as of this encounter (statuses as of 01/28/2023) [address]-2012 History of Past illness Narrative* Problem Noted Date Diagnosed Date Resolved Date Tonsillitis, chronic 09/18/2011 017 T/A hypertrophy 09/18/2011 05/28/2017 documented as of this encounter (statuses as of 02/01/2023) [address]2012 History of Past illness Narrative* Problem Noted Date Diagnosed Date Resolved Date Tonsillitis, chronic 09/18/2011 017 T/A hypertrophy 09/18/2011 05/28/2017 documented as of this encounter (statuses as of 03/03/2023) [address]2012 History of Past illness Narrative* Problem Noted Date Diagnosed Date Resolved Date Tonsillitis, chronic 09/18/2011 017 T/A hypertrophy 09/18/2011 05/28/2017 documented as of this encounter (statuses as of 03/22/2023) [facility] History of Past illness Narrative* Problem Noted Date Diagnosed Date Resolved Date Tonsillitis, chronic 09/18/2011 017 T/A hypertrophy 09/18/2011 05/28/2017 documented as of this encounter (statuses as of 04/12/2023) [facility] History of Past illness Narrative* Problem Noted Date Diagnosed Date Resolved Date Tonsillitis, chronic 09/18/2011 017 T/A hypertrophy 09/18/2011 05/28/2017 documented as of this encounter (statuses as of 06/04/2023) [facility] note* Diagnosis Hypertension, unspecified type Chest pain, unspecified type documented in this encounter [facility] Work Phone: Evaluation note* Diagnosis Controlled type 2 diabetes mellitus without complication, without long-term current use of insulin ([facility])- Primary Chronic bilateral low back pain without sciatica Depression, unspecified depression type WATSON (generalized anxiety disorder) Generalized anxiety disorder PTSD (post-traumatic stress disorder) Posttraumatic stress disorder DDD (degenerative disc disease), lumbar Degeneration of lumbar or lumbosacral intervertebral disc Fibromyalgia Mylagia and myositis, unspecified Class 3 severe obesity due to excess calories without serious comorbidity with body mass index (BMI) of 50.0 to 59.9 in adult ([facility]) HILDA (obstructive sleep apnea) Obstructive sleep apnea (adult) (pediatric) Gastroesophageal reflux disease, unspecified whether esophagitis present Tobacco use disorder Encounter for immunization Need for other specified prophylactic vaccination against single bacterial disease documented in this encounter [facility] note* Diagnosis Thrombocytosis- Primary Essential thrombocythemia Leukemoid reaction documented in this encounter [facility] note* Diagnosis Leukocytosis, unspecified type- Primary Erythrocytosis Polycythemia, secondary documented in this encounter [facility] note* Diagnosis Type 2 diabetes mellitus without complication, without long-term current use of insulin ([facility]) ([facility])- Primary BMI 50.0-59.9, adult ([facility]) Class 3 severe obesity with serious comorbidity and body mass index (BMI) of 50.0 to 59.9 in adult, unspecified obesity type ([facility]) [facility]* Diagnosis Vitamin D deficiency- Primary Unspecified vitamin D deficiency documented in this encounter [facility] note* Diagnosis Microscopic hematuria- Primary [facility] Diagnosis Controlled type 2 diabetes mellitus without complication, without long-term current use of insulin ([facility])- Primary Class 3 severe obesity due to excess calories without serious comorbidity with body mass index (BMI) of 50.0 to 59.9 in adult (HCC) Depression, unspecified depression type Need for influenza vaccination Need for prophylactic vaccination and inoculation against influenza HILDA (obstructive sleep apnea) Obstructive sleep apnea (adult) (pediatric) Vitamin D deficiency Unspecified vitamin D deficiency [facility]* Diagnosis Women's annual routine gynecological examination- Primary Screen for STD (sexually transmitted disease) Screening examination for venereal disease [facility]* Diagnosis Controlled type 2 diabetes mellitus without complication, without long-term current use of insulin ([facility]) documented in this encounter [facility] note* Diagnosis HILDA (obstructive sleep apnea)- Primary Obstructive sleep apnea (adult) (pediatric) Personal history of multiple sclerosis (HCC) Personal history of other disorders of nervous system and sense organs History of posttraumatic stress disorder (PTSD) Class 3 severe obesity with body mass index (BMI) of 50.0 to 59.9 in adult, unspecified obesity type, unspecified whether serious comorbidity present (HCC) Chronic insomnia Insomnia, unspecified documented in this encounter [facility] note* Diagnosis Obstructive sleep apnea treated with bilevel positive airway pressure (BiPAP)- Primary [facility] Name Dates Details Instructions not documented [id number] Work Phone: Summary Purpose Family History No Family History Records Found Mother Name Dates Details Family history of multiple s clerosis(V17.2, Z82.0) Status:Active Advance Directives No Advanced Directives Records FoundDocuments on File Type Date Recorded Patient Galley Stripper Expl anation ACP-Advance Directive ACP-Power of Freight Associate Latest Code Status on File Code Status Date Activated Date Inactivated Comments Full Code 07/21/2017 8:25 AM 07/21/2017 4:10 PM Documents on File Type Date Recorded Patient Galley Stripper Expl anation ACP-Advance Directive ACP-Power of Freight Associate Latest Code Status on File Code Status Date Activated Date Inactivated Comments Full Code 09/01/2021 11:09 AM Full Code 07/21/2017 8:25 AM 07/21/2017 4:10 PM Latest Code Status on File Code Status Date Activated Date Inactivated Comments Full Code 09/01/2021 11:09 AM 09/01/2021 4:31 PM Latest Code Status on File Code Status Date Activated Date Inactivated Comments Full Code 09/01/2021 11:09 AM 09/01/2021 4:31 PM Full Code 07/21/2017 8:25 AM 07/21/2017 4:10 PM Reason for Referral Status Reason Specialty Diagnoses / Procedures Referred By Contact Referred To Contact Authorized Radiology Diagnoses Epigastric pain Procedures US Abdomen Complete Elisabet Mccarthy, MANAGER MOBILE - EXPERIENCE SPECIALIST [id number] [phone] Specialty Diagnoses / Procedures Referred By Contac t Referred To Contact Cardiology Diagnoses Hypertension, unspecified type Chest pain, unspecified type Procedures Echo Stress Test - Dobutamine Rk Mcclain MD [address] [place] [address] [address] [place] [address] Referral ID Status Reason Start Date Expiration Date Visits Re quested Visits Authorized [id number] Closed 03/27/2022 04/26/2022 1 1 Assessments Diagnosis Epigastric pain Abdominal pain, epigastric Additional Source Comments INFORMATION SOURCE (unrecogn ized section and content) DATE CREATED AUTHOR AUTHOR'S ORGANIZ ATION 12/21/2017 [facility] DATE CREATED AUTHOR AUTHOR'S ORGANIZ ATION 12/21/2017 [facility] DATE CREATED AUTHOR AUTHOR'S ORGANIZ ATION 01/06/2018 [facility] DATE CREATED AUTHOR AUTHOR'S ORGANIZ ATION 06/12/2018 [facility] DATE CREATED AUTHOR AUTHOR'S ORGANIZ ATION 12/05/2021 [facility] dical Specialist DATE CREATED AUTHOR AUTHOR'S ORGANIZ ATION 04/20/[address] [facility] DATE CREATED AUTHOR AUTHOR'S ORGANIZ ATION 07/06/2023 [facility] DATE CREATED AUTHOR AUTHOR'S ORGANIZ ATION 08/09/2023 [facility] Ordered Prescriptions (unrec ognized section and content) Scheduled Active and Recently Administ ered Medications (unrecognized section and content) Continuous Medication Order 08/30/2021 08/31/2021 09/01/2021 0.9 % sodium chloride infusion IntraVENous, at 125 mL/hr, CONTINUOUS, Starting on Wed09/01/21 at 1130, Pre-op (day of surgery) 1130 (Due) lactated ringers infusion IntraVENous, at 50 mL/hr, CONTINUOUS, Starting on Wed09/01/21 at 1030, Upon admission to sameday - please start iv if patient does not have iv access. Use 500ml NS for patients on dialysis., Pre-op (day of surgery) 1053 (New Bag - Prov ider: Leonid Almazan RN) PRN Medication Order 08/30/2021 08/31/2021 09/01/2021 0.9 % sodium chloride infusion 25 mL, IntraVENous, at 100 mL/hr, PRN, If patient receiving piggyback infusions without ordered maintenance IV fluids or with frequent/long duration piggyback infusions, Starting on Wed09/01/21 at 1109, Administer at the same rate as the piggyback being infused., Pre-op (day of surgery) 0.9 % sodium chloride infusion 25 mL, IntraVENous, at 100 mL/hr, PRN, If patient receiving piggyback infusions without ordered maintenance IV fluids or with frequent/long duration piggyback infusions, Starting on Wed09/01/21 at 1119, Administer at the same rate as the piggyback being infused., PACU only ALPRAZolam (NIRAVAM) dissolvable tablet 0.25 mg 0.25 mg, Oral, PRN, Anxiety, Starting on Wed09/01/21 at 1006, Pre-op (day of surgery) 1015 (Given - Provid er: Leonid Almazan RN) diphenhydrAMINE (BENADRYL) injection 12.5 mg 12.5 mg, IntraVENous, ONCE PRN, Itching, Starting on Wed09/01/21 at 1119, For 1 dose, PACU only hydrALAZINE (APRESOLINE) injection 10 mg(Linked Group 1) 10 mg, IntraVENous, EVERY 15 MIN PRN, High Blood Pressure, for SBP greater than 180 mmHg for 2 consecutive measurements taken from different sites, Starting on Wed09/01/21 at 1119, For 2 doses, If heart rate is greater than 60 bpm, hold hydralazine and use labetalol if ordered, otherwise contact provider. Inform provider if SBP is still greater than 180 mmHg 10 minutes after second antihypertensive dose is administered., PACU only HYDROmorphone (DILAUDID) injection 0.25 mg 0.25 mg, IntraVENous, EVERY 5 MIN PRN, Pain Moderate (4-6), Starting on Wed09/01/21 at 1119, For 4 doses, Phase I and Phase II- Initial therapy for moderate pain (4-6). Restricted to a 50 minute time frame starting when the patient can verbally state their pain score. If secondary medications are utilized, do not return to initial therapy medications. SDS and, PACU only HYDROmorphone (DILAUDID) injection 0.5 mg 0.5 mg, IntraVENous, EVERY 5 MIN PRN, Pain Severe (7-10), Starting on Wed09/01/21 at 1119, For 4 doses, Phase I or Phase II- Initial therapy for severe pain (7-10). Restricted to a 50 minute time frame starting when the patient can verbally state their pain score. If secondary medications are utilized, do not return to initial therapy medications. Sameday and, PACU only 1301 (Given - Provid er: Maisha Dockery RN) insulin lispro (HUMALOG) injection vial 0-12 Units 0-12 Units, SubCUTAneous, PRN, Based on Glucose results, Starting on Wed09/01/21 at 1006, For 3 doses, Corrective Low Dose Algorithm Glucose: Dose: If <180 No Insulin 181-240 4 Units 241-300 6 Units 301-350 8 Units 350-340 10 Units Over 400 12 Units, Pre-op (day of surgery) labetalol (NORMODYNE;TRANDATE) injection 10 mg(Linked Group 1) 10 mg, IntraVENous, EVERY 15 MIN PRN, High Blood Pressure, for SBP greater than 180 mmHg for 2 consecutive measurements taken from different sites., Starting on Wed09/01/21 at 1119, For 2 doses, If heart rate is 60 bpm or less hold labetalol and use hydralazine if ordered, otherwise contact provider. Inform provider if SBP is still greater than 180 mmHg, 10 minutes after second antihypertensive dose is administered., PACU only lidocaine PF 1 % injection 1 mL 1 mL, IntraDERmal, ONCE PRN, IV start, Starting on Wed09/01/21 at 1006, For 1 dose, Pre-op (day of surgery) meperidine (DEMEROL) injection 12.5 mg 12.5 mg, IntraVENous, EVERY 5 MIN PRN, Shivering, , Starting on Wed09/01/21 at 1119, May give every 5 minutes to max of 50mg., PACU only ondansetron (ZOFRAN) injection 4 mg (COMPLETED) 4 mg, IntraVENous, ONCE PRN, Nausea, Starting on Wed09/01/21 at 1119, For 1 dose, Initial antiemetic therapy., PACU only 1253 (Given - Provid er: Maisha Dockery RN) oxyCODONE (ROXICODONE) immediate release tablet 5 mg (COMPLETED) 5 mg, Oral, PRN, Pain Moderate (4-6), Starting on Wed09/01/21 at 1119, For 1 dose, PHASE II, PACU only 1337 (Given - Provid er: Maisha Dockery RN) sodium chloride flush 0.9 % injection 10 mL 10 mL, IntraVENous, PRN, Line Care, After every IV line use, Starting on Wed09/01/21 at 1109, Pre-op (day of surgery) sodium chloride flush 0.9 % injection 5-40 mL 5-40 mL, IntraVENous, PRN, Line Care, After every IV line use, Starting on Wed09/01/21 at 1119, For Line Patency: Peripheral IV = 5 mL; Midline or Central Line = 10 mL/lumen. If following IV push medication, administer flush at same rate as the IV push. Flush volume is determined by type of infusion therapy being given. For non-viscous solutions use: Peripheral IV = 5 mL Midline or Central Line = 10 mL/lumen For viscous solutions (i.e. blood components, parenteral nutrition, contrast media, or after obtaining blood sample) use: Peripheral IV = 10 mL Midline or Central Line = 20 mL/lumen, PACU only Linked Groups Order Group 1: labetalol (NORMODYNE;TRANDATE) injection 10 mgJump to med 10 mg, IntraVENous, EVERY 15 MIN PRN, High Blood Pressure, for SBP greater than 180 mmHg for 2 consecutive measurements taken from different sites., Starting on Wed09/01/21 at 1119, For 2 doses
If heart rate is 60 bpm or less hold labetalol and use hydralazine if ordered, otherwise contact provider. Inform provider if SBP is still greater than 180 mmHg, 10 minutes after second antihypertensive dose is administered.
PACU only Or hydrALAZINE (APRESOLINE) injection 10 mgJump to med 10 mg, IntraVENous, EVERY 15 MIN PRN, High Blood Pressure, for SBP greater than 180 mmHg for 2 consecutive measurements taken from different sites, Starting on 09/01/21 at 1119, For 2 doses
If heart rate is greater than 60 bpm, hold hydralazine and use labetalol if ordered, otherwise contact provider. Inform provider if SBP is still greater than 180 mmHg 10 minutes after second antihypertensive dose is administered.
PACU only Care Teams (unrecognized sec tion and content) 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 Relationship Specialty Start Date End Date Pari Noyola MD [address] [place] [address] PCP - General Family Medicine 09/02/21 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 Relationship Specialty Start Date End Date Pari Noyola MD [address] [place] [address] PCP - General Family Medicine 09/02/21 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 Relationship Specialty Start Date End Date Pari Noyola MD [address] [place] [id number] PCP - General Family Medicine 09/02/21 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 Relationship Specialty Start Date End Date Denis Ricketts MD [address] [place] [address] PCP - General Internal Medicine 08/10/22 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 Relationship Specialty Start Date End Date Denis Ricketts MD [address] [place] [address] PCP - General Internal Medicine 08/10/22 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 Relationship Specialty Start Date End Date Denis Ricketts MD [address] [place] [address] PCP - General Internal Medicine 08/10/22 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 Relationship Specialty Start Date End Date Denis Ricketts MD [address] [facility] [address] PCP - General Internal Medicine 08/10/22 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 Relationship Specialty Start Date End Date Denis Ricketts MD [address] [facility] [address] PCP - General Internal Medicine 08/10/22 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 Relationship Specialty Start Date End Date Pari Noyola MD PCP - General 09/02/21 09/02/22 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 Relationship Specialty Start Date End Date Pari Noyola MD PCP - General 09/02/21 09/02/22 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 Relationship Specialty Start Date End Date Denis Ricketts MD [address] [facility] [address] PCP - General Internal Medicine 08/10/22 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 Relationship Specialty Start Date End Date Denis Ricketts MD [address] [facility] [address] PCP - General Internal Medicine 08/10/22 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 Relationship Specialty Start Date End Date Denis Ricketts MD [address] [facility] [address] PCP - General Internal Medicine 08/10/22 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 Relationship Specialty Start Date End Date Denis Ricketts MD [address] [facility] [address] PCP - General Internal Medicine 08/10/22 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 Relationship Specialty Start Date End Date Denis Ricketts MD [address] [facility], [place] [id number] PCP - General Internal Medicine 08/10/22 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 Relationship Specialty Start Date End Date Denis Ricketts [address] [facility], [place] [address] PCP - General Internal Medicine 03/10/23 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 Relationship Specialty Start Date End Date Denis Ricketts MD [address] [facility], [place] [address] PCP - General Internal Medicine 08/10/22 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 Relationship Specialty Start Date End Date Denis Ricketts MD [address] [facility], [place] [id number] PCP - General Internal Medicine 08/10/22 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 Relationship Specialty Start Date End Date Denis Ricketts [address] [facility], [place] [id number] PCP - General Internal Medicine 03/10/23 Source Comments (unrecognize d section and content) In the event this informatio n is protected by the [facility] Confidentiality of Alcohol and Drug Abuse Patient Records regulations: The Federal rules restrict any use of the information to criminally investigate or prosecute any alcohol or drug abuse patient.[facility] the event this information is protected by the Federal Confidentiality of Alcohol and Drug Abuse Patient Records regulations: The Federal rules restrict any use of the information to criminally investigate or prosecute any alcohol or drug abuse patient.[facility] the event this information is protected by the Federal Confidentiality of Alcohol and Drug Abuse Patient Records regulations: The Federal rules restrict any use of the information to criminally investigate or prosecute any alcohol or drug abuse patient.[facility] the event this information is protected by the Federal Confidentiality of Alcohol and Drug Abuse Patient Records regulations: The Federal rules restrict any use of the information to criminally investigate or prosecute any alcohol or drug abuse patient.[facility] the event this information is protected by the Federal Confidentiality of Alcohol and Drug Abuse Patient Records regulations: The Federal rules restrict any use of the information to criminally investigate or prosecute any alcohol or drug abuse patient.[facility] Center[facility] the event this information is protected by the Federal Confidentiality of Alcohol and Drug Abuse Patient Records regulations: The Federal rules restrict any use of the information to criminally investigate or prosecute any alcohol or drug abuse patient.[facility] Center[facility] the event this information is protected by the Federal Confidentiality of Alcohol and Drug Abuse Patient Records regulations: The Federal rules restrict any use of the information to criminally investigate or prosecute any alcohol or drug abuse patient.[facility] Center[facility] the event this information is protected by the Federal Confidentiality of Alcohol and Drug Abuse Patient Records regulations: The Federal rules restrict any use of the information to criminally investigate or prosecute any alcohol or drug abuse patient.[facility] Center[facility] the event this information is protected by the Federal Confidentiality of Alcohol and Drug Abuse Patient Records regulations: The Federal rules restrict any use of the information to criminally investigate or prosecute any alcohol or drug abuse patient.[facility] Center[facility] the event this information is protected by the Federal Confidentiality of Alcohol and Drug Abuse Patient Records regulations: The Federal rules restrict any use of the information to criminally investigate or prosecute any alcohol or drug abuse patient.[facility] Center[facility] the event this information is protected by the Federal Confidentiality of Alcohol and Drug Abuse Patient Records regulations: The Federal rules restrict any use of the information to criminally investigate or prosecute any alcohol or drug abuse patient.[facility] Center[facility] the event this information is protected by the Federal Confidentiality of Alcohol and Drug Abuse Patient Records regulations: The Federal rules restrict any use of the information to criminally investigate or prosecute any alcohol or drug abuse patient.[facility] Center[facility] the event this information is protected by the Federal Confidentiality of Alcohol and Drug Abuse Patient Records regulations: The Federal rules restrict any use of the information to criminally investigate or prosecute any alcohol or drug abuse patient.[facility] Center[facility] the event this information is protected by the Federal Confidentiality of Alcohol and Drug Abuse Patient Records regulations: The Federal rules restrict any use of the information to criminally investigate or prosecute any alcohol or drug abuse patient.[facility] Center[facility] the event this information is protected by the Federal Confidentiality of Alcohol and Drug Abuse Patient Records regulations: The Federal rules restrict any use of the information to criminally investigate or prosecute any alcohol or drug abuse patient.[facility] Reason for Visit (unrecogniz ed section and content) Reason Comments Appointment Reason Comments Medication Problem Reason Onset Date Comments Refill Request 09/03/2022 Reason Comments Established Patient Reason Comments Called Back Reason Comments Weight Loss Reason Onset Date Comments Contraception 07/20/2022 Reason Comments Results Reason Comments High Blood Sugar Reason Comments Appointment Patient Update Reason Comments Med Refill Reason Onset Date Comments Follow Up 3 month follow u p Immunizations 03/03/2023 Flu vaccination Reason Comments Annual Exam Std, HIV screening, discuss boils that re/o, abd/pelv pain. Reason Comments Patient Question Reason Comments Sleep Apnea Patient has not been using CPAP as it is drying out her mouth and face, contacted PCP and they advised to see sleep medicine Specialty Diagnoses / Procedures Referred By [facility] Referred To Contact Diagnoses HILDA (obstructive sleep apnea) Procedures CONSULT TO SLEEP MEDICINE - ADULT OFFICE/OUTPATIENT NEW HIGH MDM 60-74 MINUTES Denis Ricketts MD [address] [place] [address] Referral ID Status Reason Start Date Expiration Date V isits Requested Visits Authorized [id number] Closed PCP Requested Referral 01/28/2023 01/28/2024 1 1 Reason Comments Follow Up FOR RECORDS PERTAINING TO PATIENTS WHO ARE OR HAVE BEEN ENROLLED IN A CHEMICAL DEPENDENCY/SUBSTANCEABUSE PROGRAM, SOME INFORMATION MAY BE OMITTED. This clinical summary was aggregated from multiple sources. Caution should be exercised in using it in the provision of clinical care. This summary normalizes information from multiple sources, and as a consequence, information in this document may materially change the coding, format and clinical context of patient data. In addition, data may be omitted in some cases. CLINICAL DECISIONS SHOULD BE BASED ON THE PRIMARY CLINICAL RECORDS. [facility]. provides no warranty or guarantee of the accuracy or completeness of information in this document.
--- NOTE | 2023-08-23 07:29 | VDLE_ITS ---
Reason For Study: Left leg pain Procedure LEFT This is a venous duplex using B-mode, color GSV is normal. flow and spectral Doppler. CFV is compressible, spontaneous, phasic, Exam performed portable in ED. competent, and demonstrates normal Technically difficult, patient unable to augmentation. tolerate compression. FV is compressible, spontaneous, phasic, A preliminary report was called and/or faxed competent and demonstrates normal to ED. augmentation. FV mid and distal visualized with color only, appear patent. POP V is compressible, spontaneous, phasic, competent and demonstrates normal augmentation. T/P Trunk is compressible. PTV is compressible. LT PerV is compressible. VL/Venous Duplex US, Unilateral Interpretation Summary Deep veins of the left lower extremity are patent and compressible segmentally. There is no evidence of left lower extremity deep vein thrombosis. The left great saphenous vein jaiden ears patent and compressible segmentally. Ordering Physician: Filemon Ortiz Referring Physician: Denis Garcia M.D. Performed By: Zoey Rojas RVT
[2023-08-23] MEDS: Morphine 4 MG/ML Syringe IM (07:34)
--- NOTE | 2023-08-23 07:45 | RAD_ITS ---
STUDY: X-RAY - LUMBAR SPINE REASON FOR EXAM: Female, 38 years old. Injury/Pain PAIN IN LOWER BACK HX OF A FALL THIS PAST WEDNESDAY. HX OF BACK SURGERY BEFORE. TECHNIQUE: 2 view(s) of the lumbar spine were obtained. COMPARISON: None FINDINGS: Normal lumbar lordosis. There is no substantial scoliosis. There is a normal alignment of the vertebrae. Normal vertebral bodies and endplates. There is minimal multi-level disc space narrowing. No fracture or compression deformity is present. The soft tissue structures are unremarkable. RAD/Lumbar Spine 2 or 3 Views IMPRESSION: No acute process Electronically Signed: Khoi Kennedy MD at 9:00 EST ,
[2023-08-23 09:28] VITALS: BP 141/96; PULSE 97; RESP 18; TEMP 36.6; O2SAT 97
== END 2023-08-23 09:29 | disposition home or self-care (01) ==
PROVIDERS: Emergency Provider Emergency Medicine; PCP Internal Medicine; Visit Provider Emergency Medicine
DX: S39.012A Strain of muscle, fascia and tendon of lower back, initial encounter (principal); E11.9 Type 2 diabetes mellitus without complications; F17.210 Nicotine dependence, cigarettes, uncomplicated; Z79.899 Other long term (current) drug therapy; Z79.84 Long term (current) use of oral hypoglycemic drugs; W19.XXXA Unspecified fall, initial encounter; F43.10 Post-traumatic stress disorder, unspecified; F42.9 Obsessive-compulsive disorder, unspecified
CPT/HCPCS: 72100; 93971; 96372; 99282

== ENCOUNTER 2023-11-15 06:16 | Day surgery (SDC) | payer MEDICAID, SELFPAY ==
[2023-11-15] VITALS (7 sets, daily range): BP systolic 115–139; BP diastolic 67–97; PULSE 95–104; RESP 16–18; TEMP 36.3–37.1; O2SAT 95–98; BMI 50.7
[2023-11-15] MEDS: Lactated Ringers 1,000 ML 15 ML IV (06:48)
[2023-11-15 06:59] LABS: Internal QC Validated? YES +Cl - CLEAR BKGD; Pregnancy, Urine Negative Negative; Record Kit Lot#,Urine Preg 718089
--- NOTE | 2023-11-15 07:00 | RAD_ITS ---
EXAM: Fluoroscopy CLINICAL INDICATION: LEFT LUMBAR RADIO FREQUENCY ABLATION L4,L5,S1 TECHNIQUE: Fluoroscopy of the lumbar spine. COMPARISON: No relevant prior studies available. FINDINGS: 8 fluoroscopic spot views of the lumbar spine obtained during needle placement at the L3, L4 and L5 levels. 15.5 seconds of fluoroscopy time utilized. A total dose of 17.37 mGy. Refer to operative note for additional information. RAD/Lumbar Spine 2 or 3 Views IMPRESSION: As above. Electronically Signed: Marcel Martel MD at 8:54 EDT ,
[2023-11-15 07:06] LABS: Bedside Glucose 155 mg/dL (74-106)
[2023-11-15] MEDS: MethylPREDNISolone Acetate 40 MG/ML Vial (07:58)
[2023-11-15] MEDS: Lidocaine 1% (30 ml sdv) 30 ML Vial (07:58)
--- NOTE | 2023-11-15 08:49 | PCM.OPRPT ---
Report of Operation Date of Procedure: 11/15/23 Pre-Operative Diagnosis: Lumbosacral spondylosis, lumbosacral degenerative disc disease, lumbar facet arthropathy Post-Operative Diagnosis: Lumbosacral spondylosis, lumbosacral degenerative disc disease, lumbar facet arthropathy Surgery/Procedure Performed:: Left-sided lumbar radiofrequency ablation of the medial branch L4, L5, S1 Type of Anesthesia: MAC Estimated Blood Loss (mL): Minimal Description of Procedure: History and physical today was reviewed. Risks and benefits of procedure explained. The patient understood, agreed to the procedure and informed consent was obtained. IV inserted per routine protocol. The patient was taken to the operating room, placed in the prone position with a pillow positioned underneath the abdomen. The left side of the lower back was prepped and draped in a sterile fashion using iodine x 3. Under fluoroscopy guidance, on an oblique view, the L3 through S1 vertebral bodies were visualized. The skin and subcutaneous tissue was anesthetized with approximately 10 mL of 1% lidocaine using a 25-gauge regular needle. Under direct visualization with fluoroscopy at approximately 25-degree angle, starting on the left L3, ending on the left S1 passing through the L4-L5 using a 20-gauge 15 cm with a 10 mm curved active tip radiofrequency ablation needle the needle passed through the skin. The tip of the needle was maneuvered and directed towards the superior and medial gutter of the transverse process at the vicinity of the medial branch. Once the tip of the needle was in contact with the bone, the needle pulled approximately 2 mm up the bone. The stylet of each needle was then removed. After negative aspiration of blood with CSF and confirmation of AP as well as oblique view, radiofrequency ablation probe was then inserted at each level. Impedance was then recorded at L3 to be 287, at L4 227, at L5 308, at S1 247 ohm. Motor-evoked potential was then initiated to 1.5 volt without any motor response at each corresponding level. The probe was then removed intact and a total of 6 mL preservative-free 1% lidocaine was injected in divided doses between those 4 levels after negative aspiration of blood with CSF. The radiofrequency ablation probe was then reinserted after confirmation of AP, oblique as well as lateral view. Radiofrequency ablation was then initiated to 80 degrees Celsius for 90 seconds at each level. Once concluded, the probe was then removed intact and a total of 6 mL of preservative-free 0.25% Marcaine with 40 mg Depo-Medrol was injected in divided doses between those 4 levels. The needles were then removed intact. The patient experienced no signs or symptoms of intrathecal, intravascular injection. The patient experienced no paraesthesia. The procedure was completed without any apparent difficulty, any complication. The patient appeared to tolerate well. Sensory as well as motor exam was unchanged from prior to procedure. ASSESSMENT AND PLAN: This is a 38-year-old female with lumbosacral spondylosis, lumbosacral degenerative disc disease, lumbar facet arthropathy, status post left-sided lumbar radiofrequency ablation of the medial branch L4 through S1. The patient will continue her current medications. The patient will follow up in approximately 2 weeks for reevaluation. Complications None
== END 2023-11-15 08:48 | disposition home or self-care (01) ==
LOC: SDC 06:17 → AC 06:18
PROVIDERS: Anesthesiology; PCP Internal Medicine; Visit Provider Anesthesiology Pain Medicine
PROC: (CPT 64635; principal; 2023-11-15 07:55)
DX: M47.817 Spondylosis without myelopathy or radiculopathy, lumbosacral region (principal); E11.9 Type 2 diabetes mellitus without complications; M51.37 Other intervertebral disc degeneration, lumbosacral region; M46.96 Unspecified inflammatory spondylopathy, lumbar region; F17.210 Nicotine dependence, cigarettes, uncomplicated; M54.17 Radiculopathy, lumbosacral region; M51.26 Other intervertebral disc displacement, lumbar region; F41.9 Anxiety disorder, unspecified; F32.A Depression, unspecified; K21.9 Gastro-esophageal reflux disease without esophagitis; I10 Essential (primary) hypertension; Z79.84 Long term (current) use of oral hypoglycemic drugs; Z79.899 Other long term (current) drug therapy
CPT/HCPCS: 64635; 64636; 01992; 72100; 76000; 81025; 82962; J7120; J2405

== ENCOUNTER 2024-02-27 00:42 | Emergency (ER) | payer MEDICAID, SELFPAY ==
[2024-02-27 00:43] VITALS: BP 175/113; PULSE 126; RESP 24; TEMP 36.7; O2SAT 99
[2024-02-27 01:43] LABS: Absolute Lymphocyte Count 5.65 X10^3/uL (0.83-4.51); Absolute Neutrophil Count 10.2 X10^3/uL (2.0-7.7); Basophil# 0.15 X10^3/uL; Basophil% 0.9 % (0-1); Eosinophil# 0.03 X10^3/uL; Eosinophils% 0.2 % (0-5); Hematocrit 48.1 % (37-47); Hemoglobin 16.4 g/dL (12.0-15.0); Lymphocyte # 5.65 X10^3/ul (0.83-4.51); Lymphocyte % 33.3 % (19-41); Mean Corp Hgb Conc 34.1 g/dL (32-36); Mean Corpuscular Hgb 30.2 pg (27.0-32.0); Mean Corpuscular Volume 88.6 fL (81-99); Monocyte# 0.84 X10^3/uL; NRBC Flagged by Analyzer 0 % (0-5); Neutrophil # 10.19 X10^3/uL (2.7-7.7); Neutrophil % 60.1 % (47-70); POSITIVE DIFFERENTIAL YES; Platelet Count 468 K/mm3 (150-450); RBC Distribution Width CV 12.1 % (11.6-14.6); Red Blood Count 5.43 M/mm3 (4.2-5.4)
[2024-02-27 01:54] LABS: Differential Indicated SCAN CRITERIA MET
[2024-02-27 01:56] LABS: Anion Gap 7 (5-15); BUN 9 mg/dL (7-18); BUN/Creat Ratio 13.4 RATIO (10-20); Calcium,Total 9.6 mg/dL (8.5-10.1); Chloride 107 mmol/L (98-107); Creatinine, Serum 0.67 mg/dL (0.55-1.02); EST Glomerular Filtration Rate 105 mL/min (>60); Est Glom Filt Rate - Afr Amer 127 mL/min (>60); Glucose 224 mg/dL (74-106); Potassium 3.4 mmol/L (3.5-5.1); Sodium Level 138 mmol/L (136-145)
--- NOTE | 2024-02-27 02:01 | EDS_ITS ---
HPI History of Present Illness Chief Complaint: Hypertension Narrative Narrative: Patient referred in to the ED after speaking with on-call PCP for elevated blood pressure. She been not taking her lisinopril 10 mg, however states 2 weeks ago her blood pressure systolic 120s in her pain doctor's office. 2 days ago took her blood pressure systolic 160s over 90s. She started back on her lisinopril 10 mg. Blood pressure still in the 160s this evening and went up to 199 systolic. She called the on-call doctor. She was referred in the ED. She states history of severe anxiety and more stressed coming in here. She did denies chest pain shortness of breath abdominal pain. Over a week ago had a headache that resolved. None currently. She states she is currently anxious due to being sent here. She was told that she could have kidney failure. She reports normal urine output. No dysuria. No cough. [facility] Medical History Pleurodynia Fibromyalgia Wears glasses OCD (obsessive compulsive disorder) PTSD (post-traumatic stress disorder) Depression Marijuana use Back pain Dietary restriction Gastric reflux Smoker BiPAP (biphasic positive airway pressure) dependence Shortness of breath on exertion Leg cramps History of pain when walking History of edema Cardiology follow-up encounter Hypertension Chest pain Anxiety Ulnar nerve entrapment Chronic neck and back pain Balance problem Fatigue Diabetes Home Medications ?Medication ?Instructions ?Recorded ?Last Taken ?Type lisinopril 10 mg tablet 10 mg PO DAILY 02/21/21 11/14/23 History pantoprazole 20 mg tablet,delayed 40 mg PO DAILY 03/02/21 11/15/23 History release (Protonix) dapagliflozin propanediol 5 mg 15 mg PO DAILY 07/23/21 11/14/23 History tablet (Farxiga) aripiprazole 10 mg tablet 20 mg PO DAILY 01/27/23 11/14/23 History hydrocodone-acetaminophen 5-325mg 1 tab PO BID PRN PRN Pain 03/11/23 11/14/23 History 5mg-325mg rosuvastatin 20 mg tablet 20 mg PO DAILY 03/11/23 11/14/23 History tizanidine 4 mg tablet 4 mg PO TID PRN back 08/23/23 11/14/23 History glipizide 5 mg tablet 10 mg PO DAILY 09/13/23 11/14/23 History Allergy/AdvReac Type Severity Reaction Status Date / Time adhesive tape Allergy BLISTERS Verified 11/15/23 06:32 gabapentin Allergy not alert Verified 11/15/23 06:32 amitriptyline AdvReac NEEDS Verified 11/15/23 06:32 FOLLOW-UP duloxetine (From Cymbalta) AdvReac NEEDS Verified 11/15/23 06:32 FOLLOW-UP mirtazapine (From Remeron) AdvReac NEEDS Verified 11/15/23 06:32 FOLLOW-UP Family History Mother Hypertension Heart disease Diabetes Multiple sclerosis Clotting disorder Father CVA (cerebral vascular accident) Hypertension Heart disease Grandmother Heart disease Diabetes Hypercholesterolemia Grandfather Heart disease CVA (cerebral vascular accident) Surgical History Hx of dilation and curettage Hx of cholecystectomy History of tonsillectomy History of appendectomy Social History Smoking Status: Current every day smoker tobacco type: cigarettes ROS ROS ED Constitutional Constitutional ED: Denies chills, fever(s) or sweats Eyes Eyes: Denies change in vision ENT ENT ED: Denies dysphagia or sore throat Cardiovascular Cardiovascular: Denies chest pain, leg edema, palpitations or racing heartbeat Respiratory/Chest Respiratory/Chest: Denies cough, dyspnea or dyspnea on exertion Gastrointestinal Gastrointestinal: Denies abdominal pain, diarrhea, nausea or vomiting Genitourinary Genitourinary ED: Denies dysuria, hematuria or urinary frequency Musculoskeletal Musculoskeletal: Denies back pain, extremity pain or neck pain Integumentary Denies rash or wounds Neurologic Neurologic: Denies headache(s), paresthesias or weakness EXAM Physical Exam Const Vital Signs: 02/27/24 00:43 02/27/24 00:47 Temperature 98.0 F Temperature Source Temporal Pulse Rate 126 H Respiratory Rate 24 H Respiratory Effort Normal Non-Labored Respiratory Pattern Normal Blood Pressure 175/113 H Blood Pressure Mean 133 Pulse Ox 99 Oxygen Delivery Method Room Air Positive well nourished and well developed Constitutional Narrative: Anxious, nontoxic General Appearance ED: well developed HEENT Reports moist mucous membranes normocephalic and atraumatic Eyes EOMs intact bilaterally and conjunctivae normal General Eye ED: Yes normal appearance of both eyes Neck no lymphadenopathy and supple General: Negative for tenderness Chest Wall Chest: Negative for tenderness Resp normal respiratory effort and normal air movement Effort and Inspection: symmetric chest movement; Negative for respiratory distress Cardio regular rhythm and no murmurs Rate: tachycardic Peripheral Pulses: pulses 2+ throughout GI normal to inspection, nondistended, normoactive bowel sounds and non-tender Palpation: Negative for guarding or rebound tenderness present Back/Spine no CVA tenderness and no thoracic nor lumbar tenderness Extremity normal to inspection General Extremety ED: Negative for edema or tenderness General Extremity: Negative for edema Neuro oriented x3, CN's II-XII intact bilaterally and no sensory deficits noted Sensorium / Orientation: awake and alert Skin no rashes or lesions noted and no wounds MDM MDM MDM Narrative Medical decision making narrative: Interventions / MDM: Differential diagnosis: Elevated blood pressure, anxiety, leukocytosis Diagnosis considered but do not suspect: No hypertensive emergency symptoms. My EKG interpretation: N/A Imaging independently reviewed and interpreted by myself: N/A External documents reviewed: N/A Test considered but not ordered:N/A ED course: Patient blood pressure on arrival 175/113. She was anxious. She is tachycardic also likely to her anxiety symptoms. However her doctor states she could have kidney failure. She states she had blood checks every 3 months however she is due for this. She agreed to getting blood work. She has no hypertensive emergency symptoms. 0210: Blood work normal kidney function 0.67. Glucose 224 with a normal gap. History of diabetes. White count 17 no cough or urinary symptoms. Compared to previous labs this is around similar levels mostly around 16. Discussed this with her she is seeing hematology Dr. Liu at [facility] had a blood workup ruling out leukemia. She had recommended bone marrow biopsy however declined. This is being followed as an outpatient. This is stable at this time. I discussed with the patient keep a log of her blood pressure in the morning when she wakes up and then before bedtime. She will monitor this. Blood pressure without intervention 148/106 on recheck. Heart rate improved also to 80 as she was more reassured with her lab findings. Outpatient follow-up for blood pressure recheck and adjustments of medications as needed. All questions were answered. Re-evaluation: stable Disposition discussed with patient/family/significant other: Patient Case discussed with consulting clinician: N/A This note was generated with [employer] dictation software. It may contain incorrect words, spelling, and punctuation that were not noted in checking the note before signing. Lab Data Attestation: I reviewed the patient's lab results. Labs: Laboratory Results - last 24 hr 02/27/24 01:33 WBC 17.0 H RBC 5.43 H Hgb 16.4 H Hct 48.1 H MCV 88.6 MCH 30.2 MCHC 34.1 RDW Std Deviation 39.0 RDW Coeff of Domingo 12.1 Plt Count 468 H MPV 9.0 Immature Gran % (Auto) 0.500 Neut % (Auto) 60.1 Lymph % (Auto) 33.3 Hutchinson % (Auto) 5.0 Eos % (Auto) 0.2 Baso % (Auto) 0.9 Absolute Neuts (auto) 10.2 H Absolute Lymphs (auto) 5.65 H Nucleated RBC % 0 Sodium 138 Potassium 3.4 L Chloride 107 Carbon Dioxide 24.0 Anion Gap 7 BUN 9 Creatinine 0.67 Est GFR (MDRD) Af Amer 127 Est GFR (MDRD) Non-Af 105 BUN/Creatinine Ratio 13.4 Glucose 224 H Calcium 9.6 Discharge Plan Triage Chief Complaint: Hypertension ED Provider: Miguel Casanova Dx/Rx/DC Orders Clinical Impression: Elevated blood pressure reading in office with diagnosis of hypertension, Hx of leukocytosis, Hyperglycemia Instructions: ED Hypertension, Established Prescriptions: No Action lisinopril 10 mg Tablet 10 mg PO DAILY pantoprazole [Protonix] 20 mg Tablet,Delayed Release (Dr/Ec) 40 mg PO DAILY dapagliflozin propanediol [Farxiga] 5 mg Tablet 15 mg PO DAILY aripiprazole 10 mg tablet 20 mg PO DAILY Patient Comments: TAKE 1 TABLET BY MOUTH EVERY DAY hydrocodone-acetaminophen [hydrocodone-acetaminophen] 1 TABLET tablet 1 tab PO BID PRN PRN (Reason: Pain) rosuvastatin 20 mg tablet 20 mg PO DAILY Patient Comments: TAKE 1 TABLET BY MOUTH EVERY DAY IN THE MORNING glipizide 5 mg tablet 10 mg PO DAILY tizanidine 4 mg tablet 4 mg PO TID PRN Patient Comments: TAKE 1 TABLET BY MOUTH THREE TIMES DAILY NEEDED for SPASM Primary Care Provider: Denis Garcia Referrals: Denis Garcia MD [Primary Care Provider] - 1 Week Activity Restrictions/Additional Instructions: Blood pressure without intervention down to 140/106. Blood work creatinine normal. Glucose 224. Your white count is 17 stable from your previous. Reported seeing hematology in the past. Follow-up with your doctor. Take your blood pressure in the morning when you wake up and right before bedtime. Keep a log of this for your doctor to be evaluated and adjusting medications accordingly. Print Language: Kazakh Disposition Disposition: Home, Self Care
[2024-02-27 02:15] VITALS: BP 148/106; PULSE 80; RESP 16; TEMP 36.6; O2SAT 100
[2024-02-27 02:35] LABS: Differential Comment SCANNED; Reactive Lymphocyte 2+
== END 2024-02-27 02:16 | disposition home or self-care (01) ==
PROVIDERS: Emergency Provider Emergency Medicine; PCP Internal Medicine; Visit Provider Emergency Medicine
DX: I10 Essential (primary) hypertension (principal); E11.65 Type 2 diabetes mellitus with hyperglycemia; F17.210 Nicotine dependence, cigarettes, uncomplicated; K21.9 Gastro-esophageal reflux disease without esophagitis; Z79.899 Other long term (current) drug therapy; Z79.84 Long term (current) use of oral hypoglycemic drugs
CPT/HCPCS: 80048; 85025; 99283; A4216

== ENCOUNTER 2024-03-13 08:42 | Day surgery (SDC) | payer MEDICAID, SELFPAY ==
[2024-03-13] VITALS (7 sets, daily range): BP systolic 126–146; BP diastolic 93–103; PULSE 80–99; RESP 16–18; TEMP 36.1–36.9; O2SAT 97–99; BMI 49.2
--- NOTE | 2024-03-13 09:20 | RAD_ITS ---
PROCEDURE: Caudal epidural steroid injection. DATE OF EXAMINATION: March 13, 2024. INDICATION: Female, 39 years old. Low back pain. FLUOROSCOPY TIME (if supplied): (19 seconds) minutes/seconds. 30.07 mGy. One image was submitted. RAD/Fluor Guidance for Spine Inj IMPRESSION: Intraoperative fluoroscopic services provided for caudal epidural steroid injection. Electronically Signed: Sarwat Wheat MD at 14:32 EDT ,
[2024-03-13 09:29] LABS: Internal QC Validated? YES +Cl - CLEAR BKGD; Pregnancy, Urine Negative Negative; Record Kit Lot#,Urine Preg HCG0000772476
[2024-03-13 09:34] LABS: Bedside Glucose 177 mg/dL (74-106)
[2024-03-13] MEDS: Lactated Ringers 1,000 ML 15 ML IV (09:41)
--- NOTE | 2024-03-13 10:04 | PCM.PRE.AN2 ---
ASA Classification* ASA Classification ASA Classification: 3 Assessment & Plan Anesthesia* Anesthesia Assessment Anesthesia Assessment: Discussed sedation and/or anesthesia options, risks, benefits, and alternatives with patient/parents/legal guardian/POA. Questions invited. The patient/parents/legal guardian/POA seems to understand and agrees to proceed with anesthesia plan. Reviewed the physical assessment, medical history, allergy history and patient home medications list prior to surgery/procedure/anesthetic and documented any changes. Performed airway and anesthesia risk assessments. Anesthesia Type Anesthesia Type: MAC History Source History Obtained from:: Patient and Chart Anesthesia Focused Assessment* Temperature: 96.9 F Pulse Rate: 99 Blood Pressure: 146/95 Respiratory Rate: 18 Pulse Ox: 97 Oxygen Delivery Method: Room Air Airway Assessment Mouth opens: >3 cm Mallampati Score: II Teeth Condition: Intact Neck Range of motion (ROM): Limited ROM (Somewhat decreased extension) Focused Labs Anesthesia Preop lab: CBC WBC 17.0 K/mm3 (4.4-11.0) H 02/27/24 01:33 RBC 5.43 M/mm3 (4.2-5.4) H 02/27/24 01:33 Hgb 16.4 g/dL (12.0-15.0) H 02/27/24 01:33 Hct 48.1 % (37-47) H 02/27/24 01:33 Plt Count 468 K/mm3 (150-450) H 02/27/24 01:33 CHEMISTRY Potassium 3.4 mmol/L (3.5-5.1) L 02/27/24 01:33 Sodium 138 mmol/L (136-145) 02/27/24 01:33 BUN 9 mg/dL (7-18) 02/27/24 01:33 Creatinine 0.67 mg/dL (0.55-1.02) 02/27/24 01:33 Glucose 224 mg/dL (74-106) H 02/27/24 01:33 POC Glucose 177 mg/dL (74-106) H 03/13/24 09:17 TSH 2.34 uIU/mL (0.358-3.74) 01/23/20 09:48 COAG Urine Test Negative Negative 03/13/24 09:10 Pre-Assessment Diagnosis/Proposed Procedure Planned Operative Procedure(s): Caudal epidural steroid injection under fluoroscopy. Anesthesia History Anesthesia History - stitcher tape controlled machine: Anesthesia History - stitcher tape controlled machine Hx Hospitalization No 03/11/23 10:45 Any Problems With Anesthesia No 03/11/23 10:45 Cholinesterase deficiency No 03/11/23 10:45 You/Your Family Experience No 03/11/23 10:45 fever (hyperthermia) with Relationship Recent Exposure to Contagious No 03/13/24 09:37 Disease Does patient have nerve No 03/11/23 10:45 stimulator Patient instructed to have device shut off --Does patient have Pacemaker No 03/13/24 09:37 or ICD? When Was Last Pacemaker Check QUESTION #4 FULL TEXT: You/Your Family Experience fever (hyperthermia) with Anesthesia Last Oral Intake Last Oral intake: Last Oral Intake NPO since 04:00 03/13/24 09:37 Meds taken in AM with sips of No 03/13/24 09:37 water? Meds patient instructed to take am of surgery PONV PONV - stitcher tape controlled machine: PONV - stitcher tape controlled machine Female HX of Motion Sickness HX of N/V After Surgery Non-Smoker Duration of Surgery greater than 60 minutes Number of Risk Factors PONV Score Height & Weight Height & Weight: Anesthesia: Height & Weight Height 5 ft 7 in 03/13/24 09:37 Weight: 142.7 kg 03/13/24 09:37 Body Mass Index (BMI) 49.2 03/13/24 09:37 Respiratory Assessment Respiratory Assessment - stitcher tape controlled machine: Respiratory Tract Infection Hx - stitcher tape controlled machine Hx Respiratory Tract Infection No 03/11/23 10:45 STOP Sleep Apnea STOP Sleep Apnea - stitcher tape controlled machine: STOP Sleep Apnea - stitcher tape controlled machine Hx Hypertension Yes 03/11/23 10:45 Hx Sleep Apnea Yes 03/11/23 10:45 CPAP No 11/15/23 08:17 BIPAP Yes: TRIES HER BEST TO USE 03/11/23 10:45 Do you snore loudly (louder than talking or can be heard Do you often feel tired/ fatigued/ sleepy during daytime? Has anyone observed you stop breathing during sleep? STOP Results QUESTION #5 FULL TEXT : Do you snore loudly (louder than talking or can be heard through closed doors)? Tobacco Use History Tobacco Use History - stitcher tape controlled machine: Tobacco Use History - stitcher tape controlled machine Tobacco Use Smoking Status Current every day smoker 02/27/24 00:46 Hx Tobacco Use Yes 03/11/23 10:45 Years Smoking Packs Smoked per Day Smoking Cessation Date was within the last 15 years Hx Smoking Cessation Date Hx Smoking Cessation Counseling Any additional information?: Yes Smoking Status: Current every day smoker (Patient smoked today.) Hematologic Medial History Hematologic Hx - stitcher tape controlled machine: Hematologic Medical Hx - coding advisor Hx of Blood Transfusion Hx of Transfusion in last 3 Months Date of Last Transfusion (if within last 3 months) Ever experience any problems with transfusion(s)? Specify any problems Hx of Preganancy in last 3 Months Nurse Filling Out Transfusion & Questions: Date: Time: Patient unable to answer at this time (ie. confused, unrespo /Reproduction History /Reproductive History - stitcher tape controlled machine: /Reproductive Hx- stitcher tape controlled machine Hx Now Gestational Age (in weeks): EDC: Hx Hx Para Hx Section SAB No 02/27/24 00:43 Active Medications Active Medications: Current Medications Generic Name Dose Route Start Last Admin Trade Name Freq PRN Reason Stop Dose Admin Lactated Ringer's 1,000 mls @ 15 mls/hr 03/13/24 09:15 03/13/24 09:41 IV 15 mls/hr .Q48H ADRIANA Administration PFSH Medical History Pleurodynia Fibromyalgia Wears glasses OCD (obsessive compulsive disorder) PTSD (post-traumatic stress disorder) Depression Marijuana use Back pain Dietary restriction Gastric reflux Smoker BiPAP (biphasic positive airway pressure) dependence Shortness of breath on exertion Leg cramps History of pain when walking History of edema Cardiology follow-up encounter Hypertension Chest pain Anxiety Ulnar nerve entrapment Chronic neck and back pain Balance problem Fatigue Diabetes Home Medications ?Medication ?Instructions ?Recorded ?Last Taken ?Type lisinopril 10 mg tablet 10 mg PO DAILY 02/21/21 03/06/24 History pantoprazole 20 mg tablet,delayed 40 mg PO DAILY 03/02/21 03/12/24 History release (Protonix) dapagliflozin propanediol 5 mg 15 mg PO DAILY 07/23/21 03/11/24 History tablet (Farxiga) aripiprazole 10 mg tablet 20 mg PO DAILY 01/27/23 03/12/24 History hydrocodone-acetaminophen 5-325mg 1 tab PO BID PRN PRN Pain 03/11/23 03/12/24 History 5mg-325mg rosuvastatin 20 mg tablet 20 mg PO DAILY 03/11/23 03/11/24 History tizanidine 4 mg tablet 4 mg PO TID PRN back 08/23/23 03/11/24 History glipizide 5 mg tablet 10 mg PO DAILY 09/13/23 03/12/24 History Allergy/AdvReac Type Severity Reaction Status Date / Time adhesive tape Allergy BLISTERS Verified 03/13/24 09:32 gabapentin Allergy not alert Verified 03/13/24 09:32 amitriptyline AdvReac NEEDS Verified 03/13/24 09:32 FOLLOW-UP duloxetine (From Cymbalta) AdvReac NEEDS Verified 03/13/24 09:32 FOLLOW-UP mirtazapine (From Remeron) AdvReac NEEDS Verified 03/13/24 09:32 FOLLOW-UP Family History Mother Hypertension Heart disease Diabetes Multiple sclerosis Clotting disorder Father CVA (cerebral vascular accident) Hypertension Heart disease Grandmother Heart disease Diabetes Hypercholesterolemia Grandfather Heart disease CVA (cerebral vascular accident) Surgical History Hx of dilation and curettage Hx of cholecystectomy History of tonsillectomy History of appendectomy Social History Smoking Status: Current every day smoker tobacco type: cigarettes Review of Systems (Anesthesia) ROS Narrative System reviewed and no additional complaints, except as documented.
[2024-03-13] MEDS: MethylPREDNISolone Acetate 80 MG/ML Vial (10:24)
[2024-03-13] MEDS: 0.9% Normal Saline (Pres. free 10 ML Vial (10:24)
[2024-03-13] MEDS: Lidocaine 1% (5 ml sdv) 5 ML Vial (10:24)
--- NOTE | 2024-03-13 10:29 | OP.PCM_ITS ---
Report of Operation Date of Procedure: 03/13/24 Pre-Operative Diagnosis: Lumbosacral radiculopathy, lumbosacral degenerative di sc disease, lumbosacral spinal stenosis Post-Operative Diagnosis: Lumbosacral radiculopathy, lumbosacral degenerative disc disease, lumbosacral spinal stenosis Surgery/Procedure Performed:: Diagnostic/therapeutic caudal epidural steroid injection under fluoroscopic guidance Type of Anesthesia: MAC Estimated Blood Loss (mL): Minimal Description of Procedure: DESCRIPTION OF PROCEDURE: History and physical of today was reviewed. Risks and benefits of the procedure were explained. The patient understood and agreed to proceed. Informed consent was obtained. IV inserted per routine protocol. The patient was taken to the operating room and placed in the prone position with a pillow positioned underneath the abdomen. The lower back and tailbone area was prepped and draped in a sterile fashion using iodine x3. Under fluoroscopy guidance on a lateral view, the caudal space was identified. The skin and subcutaneous tissue was anesthetized with approximately 3 mL of 1% lidocaine using a 25-gauge regular needle. Under direct visualization with fluoroscopy, using a 22-gauge 3-1/2-inch spinal needle, the needle was advanced via the skin through the sacral hiatus. The tip of the needle was passed through the sacrococcygeal ligament and advanced to approximately S4 area. After negative aspiration of blood or CSF, a total of 3 mL of contrast was injected to confirm correct placement of the needle as well as cephalad spread. The spread was followed to approximately L5 area. After confirmation on AP as well as lateral view and repeated negative aspiration, a total of 15 mL of preservative-free 0.125% Marcaine with 80 mg of Depo-Medrol was injected easily. The needle was then removed intact. The patient experienced no sign or symptoms of intrathecal or intravascular injection. The patient experienced no paresthesia. The procedure was completed without any apparent difficulty or any complications. The patient appeared to tolerate it well. ASSESSMENT AND PLAN: This is a 39-year-old female with lumbosacral radiculopathy, lumbosacral degenerative disc disease, lumbosacral spinal stenosis status post diagnostic/therapeutic caudal epidural steroid injection, patient will continue her current medications, patient will follow in approximately 2 weeks for reevaluation. Complications None
--- NOTE | 2024-03-13 10:34 | PCM.POST.ANE ---
Anesthesia: Postop Eval I Current Vital Signs Temperature: 98.4 F Pulse Rate: 80 Blood Pressure: 137/93 Respiratory Rate: 18 Pulse Ox: 98 Oxygen Delivery Method: Room Air Assessment Airway patent: Yes Spontaneous unlabored respirations: Yes Mental status: Awake and Calm nausea: No Vomiting: No Anesthesia Complication: No Fluid Hydration Crystalloid volume administer (ml): 200 Total IV fluid infused: 200 Progress Note Anesthesia document: Postop Eval 1 completed: Yes
--- NOTE | 2024-03-13 11:20 | POSTOPAN2_ITS ---
Anesthesia Postop Eval I Sum Postop Eval Completion status Anesthesia document: Postop Eval 1 completed: Yes Anesthesia Postop Eval I Summary Anesthesia Postop Eval I Summary: Anesthesia Postop Eval I: Assessment Summary Airway patent Yes 03/13/24 10:36 IRRIGATION [email or web address].[email or web address] Spontaneous unlabored Yes 03/13/24 10:36 IRRIGATION ENGINEER.TASHA respirations Mental status Awake,Calm 03/13/24 10:36 IRRIGATION ENGINEER.TASHA nausea No 03/13/24 10:36 IRRIGATION ENGINEER.TASHA Vomiting No 03/13/24 10:36 IRRIGATION ENGINEERGABBY Anesthesia Postop Eval I: Fluid Summary Crystalloid volume administer 200 03/13/24 10:36 IRRIGATION ENGINEER.TASHA (ml) Colloids volume administered ( ml) Blood Product volume administered (ml) Total IV fluid infused 200 03/13/24 10:36 IRRIGATION ENGINEER.TASHA Anesthesia Postop Eval I: Summary Notes Anesthesia Complication No 03/13/24 10:36 MAGDALENA Anesthesia Complication Comment: Post-operative progress note Anesthesia: Postop Eval II Evaluation Mental status: Awake Pain Level: 0 nausea: No Vomiting: No
--- NOTE | 2024-03-13 11:20 | PCM.POSTANE2 ---
Anesthesia Postop Eval I Sum Postop Eval Completion status Anesthesia document: Postop Eval 1 completed: Yes Anesthesia Postop Eval I Summary Anesthesia Postop Eval I Summary: Anesthesia Postop Eval I: Assessment Summary Airway patent Yes 03/13/24 10:36 PLUSH [email or web address].[email or web address] Spontaneous unlabored Yes 03/13/24 10:36 PLUSH DRESSER.TASHA respirations Mental status Awake,Calm 03/13/24 10:36 PLUSH DRESSER.TASHA nausea No 03/13/24 10:36 PLUSH DRESSER.TASHA Vomiting No 03/13/24 10:36 PLUSH DRESSERGABBY Anesthesia Postop Eval I: Fluid Summary Crystalloid volume administer 200 03/13/24 10:36 PLUSH DRESSER.TASHA (ml) Colloids volume administered ( ml) Blood Product volume administered (ml) Total IV fluid infused 200 03/13/24 10:36 PLUSH DRESSER.TASHA Anesthesia Postop Eval I: Summary Notes Anesthesia Complication No 03/13/24 10:36 MAGDALENA Anesthesia Complication Comment: Post-operative progress note Anesthesia: Postop Eval II Evaluation Mental status: Awake Pain Level: 0 nausea: No Vomiting: No
== END 2024-03-13 10:55 | disposition home or self-care (01) ==
LOC: SDC 08:43 → AC 08:48
PROVIDERS: Anesthesiology; PCP Internal Medicine; Referring Provider Anesthesiology Pain Medicine; Visit Provider Anesthesiology Pain Medicine
PROC: 3E0S3BZ Introduction of Anesthetic Agent into Epidural Space, Percutaneous Approach (ICD-10-PCS; CPT 62282; principal; 2024-03-13 10:15)
DX: M51.17 Intervertebral disc disorders with radiculopathy, lumbosacral region (principal); E11.9 Type 2 diabetes mellitus without complications; M48.07 Spinal stenosis, lumbosacral region; G47.30 Sleep apnea, unspecified; I10 Essential (primary) hypertension; Z79.84 Long term (current) use of oral hypoglycemic drugs; Z79.899 Other long term (current) drug therapy
CPT/HCPCS: 62323; 01992; 64483; 77003; 81025; 82962; J7120; J3490

== ENCOUNTER 2024-06-12 06:03 | Day surgery (SDC) | payer MEDICAID, SELFPAY ==
[2024-06-12] VITALS (7 sets, daily range): BP systolic 135–166; BP diastolic 96–102; PULSE 102–111; RESP 16–18; TEMP 36.3–36.4; O2SAT 96–100; BMI 50.1
[2024-06-12 06:29] LABS: Internal QC Validated? YES +Cl - CLEAR BKGD; Pregnancy, Urine Negative Negative
--- NOTE | 2024-06-12 06:55 | PCM.PRE.AN2 ---
ASA Classification* ASA Classification ASA Classification: 2 Assessment & Plan Anesthesia* Anesthesia Assessment Anesthesia Assessment: Discussed sedation and/or anesthesia options, risks, benefits, and alternatives with patient/parents/legal guardian/POA. Questions invited. The patient/parents/legal guardian/POA seems to understand and agrees to proceed with anesthesia plan. Reviewed the physical assessment, medical history, allergy history and patient home medications list prior to surgery/procedure/anesthetic and documented any changes. Performed airway and anesthesia risk assessments. Anesthesia Type Anesthesia Type: MAC Anesthesia Focused Assessment* Temperature: 97.5 F Pulse Rate: 105 Blood Pressure: 135/98 Respiratory Rate: 18 Pulse Ox: 99 Airway Assessment Mouth opens: >3 cm Mallampati Score: II Focused Labs Anesthesia Preop lab: CBC WBC 17.0 K/mm3 (4.4-11.0) H 02/27/24 01:33 RBC 5.43 M/mm3 (4.2-5.4) H 02/27/24 01:33 Hgb 16.4 g/dL (12.0-15.0) H 02/27/24 01:33 Hct 48.1 % (37-47) H 02/27/24 01:33 Plt Count 468 K/mm3 (150-450) H 02/27/24 01:33 CHEMISTRY Potassium 3.4 mmol/L (3.5-5.1) L 02/27/24 01:33 Sodium 138 mmol/L (136-145) 02/27/24 01:33 BUN 9 mg/dL (7-18) 02/27/24 01:33 Creatinine 0.67 mg/dL (0.55-1.02) 02/27/24 01:33 Glucose 224 mg/dL (74-106) H 02/27/24 01:33 POC Glucose 177 mg/dL (74-106) H 03/13/24 09:17 TSH 2.34 uIU/mL (0.358-3.74) 01/23/20 09:48 COAG Urine Test Negative Negative 06/12/24 06:20 Pre-Assessment Diagnosis/Proposed Procedure Planned Operative Procedure(s): RIGHT LUMBAR RADIOFREQUENCY AT MEDIAL BRANCH OF L4 L5 S1 UNDER FLUOROSCOPY Anesthesia History Anesthesia History - business systems consultant: Anesthesia History - business systems consultant Hx Hospitalization No 06/08/24 11:21 Any Problems With Anesthesia No 06/08/24 11:21 Cholinesterase deficiency No 06/08/24 11:21 You/Your Family Experience No 06/08/24 11:21 fever (hyperthermia) with Relationship Recent Exposure to Contagious No 06/12/24 06:32 Disease Does patient have nerve No 06/08/24 11:21 stimulator Patient instructed to have device shut off --Does patient have Pacemaker No 06/12/24 06:32 or ICD? When Was Last Pacemaker Check QUESTION #4 FULL TEXT: You/Your Family Experience fever (hyperthermia) with Anesthesia Last Oral Intake Last Oral intake: Last Oral Intake NPO since 05:00 06/12/24 06:32 Meds taken in AM with sips of Yes 06/12/24 06:32 water? Meds patient instructed to take am of surgery PONV PONV - business systems consultant: PONV - business systems consultant Female Yes 06/08/24 11:21 HX of Motion Sickness No 06/08/24 11:21 HX of N/V After Surgery No 06/08/24 11:21 Non-Smoker No 06/08/24 11:21 Duration of Surgery greater No 06/08/24 11:21 than 60 minutes Number of Risk Factors 1 06/08/24 11:21 PONV Score Low Risk 06/08/24 11:21 Height & Weight Height & Weight: Anesthesia: Height & Weight Height 5 ft 7 in 06/12/24 06:32 Weight: 145 kg 06/12/24 06:32 Body Mass Index (BMI) 50.1 06/12/24 06:32 Respiratory Assessment Respiratory Assessment - business systems consultant: Respiratory Tract Infection Hx - business systems consultant Hx Respiratory Tract Infection No 06/08/24 11:21 STOP Sleep Apnea STOP Sleep Apnea - business systems consultant: STOP Sleep Apnea - business systems consultant Hx Hypertension Yes 06/08/24 11:21 Hx Sleep Apnea Yes 06/08/24 11:21 CPAP No 06/08/24 11:21 BIPAP Yes: NONCOMPLAINT 06/08/24 11:21 Do you snore loudly (louder than talking or can be heard Do you often feel tired/ fatigued/ sleepy during daytime? Has anyone observed you stop breathing during sleep? STOP Results Positive 06/08/24 11:21 QUESTION #5 FULL TEXT : Do you snore loudly (louder than talking or can be heard through closed doors)? Tobacco Use History Tobacco Use History - business systems consultant: Tobacco Use History - business systems consultant Tobacco Use Smoking Status Light Smoker (<10/day) 06/08/24 11:21 Hx Tobacco Use Yes 06/08/24 11:21 Years Smoking Packs Smoked per Day Smoking Cessation Date was within the last 15 years Hx Smoking Cessation Date Hx Smoking Cessation Counseling Hematologic Medial History Hematologic Hx - business systems consultant: Hematologic Medical Hx - loan documentation specialist Hx of Blood Transfusion No 06/08/24 11:21 Hx of Transfusion in last 3 No 06/08/24 11:21 Months Date of Last Transfusion (if within last 3 months) Ever experience any problems No 06/08/24 11:21 with transfusion(s)? Specify any problems Hx of Preganancy in last 3 No 06/08/24 11:21 Months Nurse Filling Out Transfusion [facility] 06/08/24 11:21 & Questions: Date: 06/08/24 06/08/24 11:21 Time: 11:33 06/08/24 11:21 Patient unable to answer at this time (ie. confused, unrespo /Reproduction History /Reproductive History - business systems consultant: /Reproductive Hx- business systems consultant Hx Now No 06/08/24 11:21 Gestational Age (in weeks): EDC: Hx Hx Para Hx Section SAB No 06/08/24 11:21 [facility] History Blood disorder Bipolar disorder History of steroid therapy High cholesterol Sleep apnea History of echocardiogram History of stress test Pleurodynia Fibromyalgia Wears glasses OCD (obsessive compulsive disorder) PTSD (post-traumatic stress disorder) Depression Marijuana use Back pain Dietary restriction Gastric reflux Smoker BiPAP (biphasic positive airway pressure) dependence Shortness of breath on exertion Leg cramps History of pain when walking History of edema Cardiology follow-up encounter Hypertension Chest pain Anxiety Ulnar nerve entrapment Chronic neck and back pain Balance problem Fatigue Diabetes Home Medications ?Medication ?Instructions ?Recorded ?Last Taken ?Type lisinopril 10 mg tablet 10 mg PO DAILY 02/21/21 03/06/24 History pantoprazole 20 mg tablet,delayed 40 mg PO DAILY 03/02/21 03/12/24 History release (Protonix) dapagliflozin propanediol 5 mg 15 mg PO DAILY 07/23/21 03/11/24 History tablet (Farxiga) aripiprazole 10 mg tablet 20 mg PO DAILY 01/27/23 03/12/24 History hydrocodone-acetaminophen 5-325mg 1 tab PO BID PRN PRN Pain 03/11/23 03/12/24 History 5mg-325mg rosuvastatin 20 mg tablet 20 mg PO DAILY 03/11/23 03/11/24 History tizanidine 4 mg tablet 4 mg PO TID PRN back 08/23/23 03/11/24 History glipizide 5 mg tablet 10 mg PO DAILY 09/13/23 03/12/24 History metoprolol succinate 25 mg 25 mg PO DAILY 06/08/24 06/12/24 05:00 History tablet,extended release 24 hr Allergy/AdvReac Type Severity Reaction Status Date / Time adhesive tape Allergy BLISTERS Verified 06/12/24 06:31 gabapentin Allergy not alert Verified 06/12/24 06:31 amitriptyline AdvReac NEEDS Verified 06/12/24 06:31 FOLLOW-UP duloxetine (From Cymbalta) AdvReac NEEDS Verified 06/12/24 06:31 FOLLOW-UP mirtazapine (From Remeron) AdvReac NEEDS Verified 06/12/24 06:31 FOLLOW-UP Family History Mother Hypertension Heart disease Diabetes Multiple sclerosis Clotting disorder Father CVA (cerebral vascular accident) Hypertension Heart disease Grandmother Heart disease Diabetes Hypercholesterolemia Grandfather Heart disease CVA (cerebral vascular accident) Surgical History Hx of dilation and curettage Hx of cholecystectomy History of tonsillectomy History of appendectomy Social History Smoking Status: Light Smoker (<10/day) Review of Systems (Anesthesia) ROS Narrative System reviewed and no additional complaints, except as documented.
[2024-06-12 07:06] LABS: Bedside Glucose 310 mg/dL (74-106)
--- NOTE | 2024-06-12 09:27 | RAD_ITS ---
STUDY: X-RAY - LUMBAR SPINE REASON FOR EXAM: Female, 39 years old. RADIO FREQ ABLATION, RIGHT TECHNIQUE: view(s) of the lumbar spine were obtained. COMPARISON: None FINDINGS: 12.7 seconds of fluoroscopy of the lumbar spine was utilized operating room during radiofrequency ablation and 8 images are submitted for interpretation. . RAD/L/S Spine Min 4 Views IMPRESSION: Fluoroscopy during radiofrequency ablation. Electronically Signed: Alcides Jacob MD at 11:13 EST ,
[2024-06-12] MEDS: Bupivacaine 0.25% 30 ML Vial (09:35)
[2024-06-12] MEDS: Lidocaine 1% (30 ml sdv) 30 ML Vial (09:35)
[2024-06-12] MEDS: MethylPREDNISolone Acetate 40 MG/ML Vial (09:35)
--- NOTE | 2024-06-12 09:54 | OP.PCM_ITS ---
Operative Report (Standard) Operative Information Date of Procedure: 06/12/24 Pre-Operative Diagnosis: 1 Post-Operative Diagnosis: 1 Surgery/Procedure Performed: 1 focus puller: Yes Parquet Floor Layer: none Tasks completed by assistant superintendent for curriculum: Other Type of Anesthesia: MAC and Topical Anesth RN Documented Start/Stop Times: Operation Date: 06/12/24 07:30 Case Time Into Pre-Op 06/12/24 06:08 Anesthesia Start 06/12/24 09:18 Into Room 06/12/24 09:18 Procedure Start 06/12/24 09:35 Procedure End 06/12/24 09:46 Anesthesia End 06/12/24 09:52 Out of Room 06/12/24 09:52 Procedure Start Time: 09:56 Procedure Stop Time: 09:56 Select all DRAINS/GRAFTS/IMPLANTS that apply: None Estimated Blood Loss: 0 Fluids Replaced: 0 Specimen collected: No Description of surgery: 1 Surgical Findings: Pre-Operative Diagnosis: Lumbosacral spondylosis, lumbosacral degenerative disc disease, lumbar facet arthropathy Post-Operative Diagnosis: Lumbosacral spondylosis, lumbosacral degenerative disc disease, lumbar facet arthropathy Surgery/Procedure Performed:: Right-sided lumbar radiofrequency ablation of the medial branch L4, L5, S1 Type of Anesthesia: MAC Estimated Blood Loss (mL): Minimal Description of Procedure: History and physical today was reviewed. Risks and benefits of procedure explained. The patient understood, agreed to the procedure and informed consent was obtained. IV inserted per routine protocol. The patient was taken to the operating room, placed in the prone position with a pillow positioned underneath the abdomen. The left side of the lower back was prepped and draped in a sterile fashion using iodine x 3. Under fluoroscopy guidance, on an oblique view, the L3 through S1 vertebral bodies were visualized. The skin and subcutaneous tissue was anesthetized with approximately 10 mL of 1% lidocaine using a 25-gauge regular needle. Under direct visualization with fluoroscopy at approximately 25-degree angle, starting on the right L3, ending on the right S1 passing through the L4-L5 using a 20-gauge 15 cm with a 10 mm curved active tip radiofrequency ablation needle the needle passed through the skin. The tip of the needle was maneuvered and directed towards the superior and medial gutter of the transverse process at the vicinity of the medial branch. Once the tip of the needle was in contact with the bone, the needle pulled approximately 2 mm up the bone. The stylet of each needle was then removed. After negative aspiration of blood with CSF and confirmation of AP as well as oblique view, radiofrequency ablation probe was then inserted at each level. Impedance was then recorded at L3 to be 305, at L4 272, at L5 321, at S1 290 ohm. Motor-evoked potential was then initiated to 1.5 volt without any motor response at each corresponding level. The probe was then removed intact and a total of 6 mL preservative-free 1% lidocaine was injected in divided doses between those 4 levels after negative aspiration of blood with CSF. The radiofrequency ablation probe was then reinserted after confirmation of AP, oblique as well as lateral view. Radiofrequency ablation was then initiated to 80 degrees Celsius for 90 seconds at each level. Once concluded, the probe was then removed intact and a total of 6 mL of preservative-free 0.25% Marcaine with 40 mg Depo-Medrol was injected in divided doses between those 4 levels. The needles were then removed intact. The patient experienced no signs or symptoms of intrathecal, intravascular injection. The patient experienced no paraesthesia. The procedure was completed without any apparent difficulty, any complication. The patient appeared to tolerate well. Sensory as well as motor exam was unchanged from prior to procedure. ASSESSMENT AND PLAN: This is a 39-year-old female with lumbosacral spondylosis, lumbosacral degenerative disc disease, lumbar facet arthropathy, status post right-sided lumbar radiofrequency ablation of the medial branch L4 through S1. The patient will continue her current medications. The patient will follow up in approximately 2 weeks for reevaluation. Complications Complications: No Admit VTE Documentation VTE Present on Admission: No
--- NOTE | 2024-06-12 09:59 | PCM.POST.ANE ---
Anesthesia: Postop Eval I Current Vital Signs Temperature: 97.3 F Pulse Rate: 111 Blood Pressure: 146/102 Respiratory Rate: 16 Pulse Ox: 98 Oxygen Delivery Method: Room Air Assessment Airway patent: Yes Spontaneous unlabored respirations: Yes Mental status: Awake and Apprehensive nausea: No Vomiting: No Anesthesia Complication: No Fluid Hydration Crystalloid volume administer (ml): 12 Total IV fluid infused: 12 Progress Note Anesthesia document: Postop Eval 1 completed: Yes
--- NOTE | 2024-06-12 10:09 | PCM.POSTANE2 ---
Anesthesia Postop Eval I Sum Postop Eval Completion status Anesthesia document: Postop Eval 1 completed: Yes Anesthesia Postop Eval I Summary Anesthesia Postop Eval I Summary: Anesthesia Postop Eval I: Assessment Summary Airway patent Yes 06/12/24 10:00 Spontaneous unlabored Yes 06/12/24 10:00 respirations Mental status Awake,Apprehensive 06/12/24 10:00 nausea No 06/12/24 10:00 Vomiting No 06/12/24 10:00 Anesthesia Postop Eval I: Fluid Summary Crystalloid volume administer 12 06/12/24 10:00 (ml) Colloids volume administered ( ml) Blood Product volume administered (ml) Total IV fluid infused 12 06/12/24 10:00 Anesthesia Postop Eval I: Summary Notes Anesthesia Complication No 06/12/24 10:00 Anesthesia Complication Comment: Post-operative progress note Anesthesia: Postop Eval II Evaluation Mental status: Awake Pain Level: 1 nausea: No Vomiting: No
== END 2024-06-12 10:29 | disposition home or self-care (01) ==
LOC: SDC 06:03 → AC 06:04
PROVIDERS: Anesthesiology; PCP Internal Medicine; Referring Provider Anesthesiology Pain Medicine; Visit Provider Anesthesiology Pain Medicine
PROC: (CPT 64636; principal; 2024-06-12 07:25)
DX: M47.817 Spondylosis without myelopathy or radiculopathy, lumbosacral region (principal); M51.379 Other intervertebral disc degeneration, lumbosacral region without mention of lumbar back pain or lower extremity pain; M46.96 Unspecified inflammatory spondylopathy, lumbar region; F17.200 Nicotine dependence, unspecified, uncomplicated; Z79.899 Other long term (current) drug therapy; M79.7 Fibromyalgia
CPT/HCPCS: 64636; 64635; 01992; 72110; 76000; 81025; 82962; A4216; J2405

== ENCOUNTER 2024-08-14 06:42 | Day surgery (SDC) | payer MEDICAID, SELFPAY ==
[2024-08-14] VITALS (7 sets, daily range): BP systolic 114–158; BP diastolic 92–105; PULSE 104–117; RESP 16–22; TEMP 36.2–37.1; O2SAT 94–100; BMI 49.9
--- NOTE | 2024-08-14 06:57 | PCM.PRE.AN2 ---
ASA Classification* ASA Classification ASA Classification: 2 Assessment & Plan Anesthesia* Anesthesia Assessment Anesthesia Assessment: Discussed sedation and/or anesthesia options, risks, benefits, and alternatives with patient/parents/legal guardian/POA. Questions invited. The patient/parents/legal guardian/POA seems to understand and agrees to proceed with anesthesia plan. Reviewed the physical assessment, medical history, allergy history and patient home medications list prior to surgery/procedure/anesthetic and documented any changes. Performed airway and anesthesia risk assessments. Anesthesia Type Anesthesia Type: MAC Anesthesia Focused Assessment* Airway Assessment Mouth opens: >3 cm Mallampati Score: II Focused Labs Anesthesia Preop lab: CBC WBC 17.0 K/mm3 (4.4-11.0) H 02/27/24:02/27/24 RBC 5.43 M/mm3 (4.2-5.4) H 02/27/24:02/27/24 Hgb 16.4 g/dL (12.0-15.0) H 02/27/24:02/27/24 Hct 48.1 % (37-47) H 02/27/24 01:02/27/24 Plt Count 468 K/mm3 (150-450) H 02/27/24 01:02/27/24 CHEMISTRY Potassium 3.4 mmol/L (3.5-5.1) L 02/27/24:02/27/24 Sodium 138 mmol/L (136-145) 02/27/24 01:02/27/24 BUN 9 mg/dL (7-18) 02/27/24 01:02/27/24 Creatinine 0.67 mg/dL (0.55-1.02) 02/27/24 01:02/27/24 Glucose 224 mg/dL (74-106) H 02/27/24 01:02/27/24 POC Glucose 310 mg/dL (74-106) H 06/12/24 06:47 06/12/24 TSH 2.34 uIU/mL (0.358-3.74) 01/23/20 09:48 01/23/20 COAG Urine Test Negative Negative 06/12/24 06:20 06/12/24 Pre-Assessment Diagnosis/Proposed Procedure Planned Operative Procedure(s): left lumbar RFA l4,l5,s1 Anesthesia History 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 When Was Last Pacemaker Check QUESTION #4 FULL TEXT: You/Your Family Experience fever (hyperthermia) with Anesthesia Last Oral Intake Last Oral intake: Last Oral Intake NPO since Meds taken in AM with sips of water? 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 Female HX of Motion Sickness HX of N/V After Surgery Non-Smoker Duration of Surgery greater than 60 minutes Number of Risk Factors PONV Score Height & Weight Height & Weight: Anesthesia: Height & Weight Height 5 ft 7 in 06/12/24 06:32 Respiratory Assessment Respiratory Assessment - sprinkler repair technician: Respiratory Tract Infection Hx - sprinkler repair technician Hx Respiratory Tract Infection No 06/08/24 11:21 STOP Sleep Apnea STOP Sleep Apnea - sprinkler repair technician: STOP Sleep Apnea - sprinkler repair technician Hx Hypertension Yes 06/08/24 11:21 Hx Sleep Apnea Yes 06/12/24 10:16 CPAP No 06/12/24 09:55 BIPAP Yes: NONCOMPLAINT 06/08/24 11:21 Do you snore loudly (louder than talking or can be heard Do you often feel tired/ fatigued/ sleepy during daytime? Has anyone observed you stop breathing during sleep? STOP Results QUESTION #5 FULL TEXT : Do you snore loudly (louder than talking or can be heard through closed doors)? 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 Specify any problems Hx of Preganancy in last 3 Months Nurse Filling Out Transfusion & Questions: Date: Time: Patient unable to answer at this time (ie. confused, unrespo /Reproduction History /Reproductive History - sprinkler repair technician: /Reproductive Hx- sprinkler repair technician Hx Now Gestational Age (in weeks): EDC: Hx Hx Para Hx Section SAB No 06/08/24 11:21 [facility] Medical History Blood disorder Bipolar disorder History of steroid therapy High cholesterol Sleep apnea History of echocardiogram History of stress test Pleurodynia Fibromyalgia Wears glasses OCD (obsessive compulsive disorder) PTSD (post-traumatic stress disorder) Depression Marijuana use Back pain Dietary restriction Gastric reflux Smoker BiPAP (biphasic positive airway pressure) dependence Shortness of breath on exertion Leg cramps History of pain when walking History of edema Cardiology follow-up encounter Hypertension Chest pain Anxiety Ulnar nerve entrapment Chronic neck and back pain Balance problem Fatigue Diabetes Home Medications ?Medication ?Instructions ?Recorded ?Last Taken ?Type lisinopril 10 mg tablet 10 mg PO DAILY 02/21/21 03/06/24 History pantoprazole 20 mg tablet,delayed 40 mg PO DAILY 03/02/21 03/12/24 History release (Protonix) dapagliflozin propanediol 5 mg 15 mg PO DAILY 07/23/21 03/11/24 History tablet (Farxiga) aripiprazole 10 mg tablet 20 mg PO DAILY 01/27/23 03/12/24 History hydrocodone-acetaminophen 5-325mg 1 tab PO BID PRN PRN Pain 03/11/23 03/12/24 History 5mg-325mg rosuvastatin 20 mg tablet 20 mg PO DAILY 03/11/23 03/11/24 History tizanidine 4 mg tablet 4 mg PO TID PRN back 08/23/23 03/11/24 History glipizide 5 mg tablet 10 mg PO DAILY 09/13/23 03/12/24 History metoprolol succinate 25 mg 25 mg PO DAILY 06/08/24 06/12/24 05:00 History tablet,extended release 24 hr Allergy/AdvReac Type Severity Reaction Status Date / Time adhesive tape Allergy BLISTERS Verified 06/12/24 06:31 gabapentin Allergy not alert Verified 06/12/24 06:31 amitriptyline AdvReac NEEDS Verified 06/12/24 06:31 FOLLOW-UP duloxetine (From Cymbalta) AdvReac NEEDS Verified 06/12/24 06:31 FOLLOW-UP mirtazapine (From Remeron) AdvReac NEEDS Verified 06/12/24 06:31 FOLLOW-UP Family History Mother Hypertension Heart disease Diabetes Multiple sclerosis Clotting disorder Father CVA (cerebral vascular accident) Hypertension Heart disease Grandmother Heart disease Diabetes Hypercholesterolemia Grandfather Heart disease CVA (cerebral vascular accident) Surgical History Hx of dilation and curettage Hx of cholecystectomy History of tonsillectomy History of appendectomy Social History Smoking Status: Light Smoker (<10/day) Review of Systems (Anesthesia) ROS Narrative System reviewed and no additional complaints, except as documented.
[2024-08-14 07:17] LABS: Internal QC Validated? YES +Cl - CLEAR BKGD; Pregnancy, Urine Negative Negative
[2024-08-14 07:34] LABS: Bedside Glucose 207 mg/dL (74-106)
--- NOTE | 2024-08-14 08:10 | RAD_ITS ---
Fluoroscopic guidance was used intraoperatively. Please refer to the operative note for further details. 5 images. Total fluoroscopy time 13.6 seconds. Total radiation dose 12.02 mGy. Reading Location: [facility]
[2024-08-14] MEDS: Bupivacaine 0.25% 30 ML Vial (08:13)
[2024-08-14] MEDS: MethylPREDNISolone Acetate 40 MG/ML Vial (08:13)
[2024-08-14] MEDS: Lidocaine 1% (30 ml sdv) 30 ML Vial (08:13)
--- NOTE | 2024-08-14 08:29 | OP.PCM_ITS ---
Operative Report (Standard) Operative Information Date of Procedure: 08/14/24 Pre-Operative Diagnosis: Lumbosacral spondylosis, lumbosacral degenerative disc disease, lumbar facet arthropathy Post-Operative Diagnosis: Lumbosacral spondylosis, lumbosacral degenerative disc disease, lumbar facet arthropathy Surgery/Procedure Performed: Left-sided lumbar radiofrequency ablation of the medial branch at L4, L5, S1 medical office manager: No Type of Anesthesia: Local MAC RN Documented Start/Stop Times: Operation Date: 08/14/24 08:30 Case Time Into Pre-Op 08/14/24 06:47 Out of Pre-Op 08/14/24 07:42 Anesthesia Start 08/14/24 08:00 Into Room 08/14/24 08:00 Procedure Start 08/14/24 08:10 Procedure End 08/14/24 08:22 Anesthesia End 08/14/24 08:25 Out of Room 08/14/24 08:25 Procedure Start Time: 08:29 Procedure Stop Time: 08:29 Select all DRAINS/GRAFTS/IMPLANTS that apply: None Estimated Blood Loss: 0 Specimen collected: No Description of surgery: PROCEDURE: ANESTHESIA: MAC. BLOOD LOSS: Minimal. COMPLICATIONS: None. DESCRIPTION OF PROCEDURE: History and physical of today was reviewed. Risks and benefits of the procedure were explained. The patient understood and agreed to proceed. Informed consent was obtained. IV inserted per routine protocol. The patient was taken to the operating room and placed in the prone position with a pillow positioned underneath the abdomen. The left side of her lower back was prepped and draped in a sterile fashion using iodine x3. Under fluoroscopy guidance in an oblique view, the L3 through S1 vertebral bodies were visualized. The skin and subcutaneous tissue was anesthetized with approximately 10 mL of 1% lidocaine using a 25-gauge regular needle. Under direct visualization on fluoroscopy at approximately 25-degree angle, starting on the left L3, ending on the left S1, passing through the L4 and L5, using a 20-gauge 15-cm with a 10-mm curved active-tip radiofrequency ablation needle, the needle was passed through the skin. The tip of the needle was maneuvered and directed towards the superior medial gutter of the transverse process at the vicinity of the medial branch. Once the tip of the needle was in contact with the bone, the needle was pulled approximately 2 mm off the bone. The stylette of each needle was then removed. After negative aspiration of blood or CSF and confirmation on AP, oblique as well as lateral view, the radiofrequency ablation probe was then inserted at each level. Impedance was then recorded at L3 to be 299 ohm, at L4 to be 307 ohm, at L5 to be 387 ohm, and at S1 to be 282 ohm. Motor evoked potential was then initiated to 1.5 volt and 2 Hz without any motor response at each corresponding level. The probe was then removed intact and a total of 6 mL of preservative-free 1% lidocaine was injected in divided doses between those four levels after negative aspiration of blood or CSF. The radiofrequency ablation probe was then reinserted. After confirmation on AP, oblique as well as lateral view, radiofrequency ablation was then initiated to 80 degree Celsius for 90 second at each level. Once concluded, the probe was then removed intact. A total of 6 mL of preservative-free 0.25% Marcaine with 40 mg of Depo-Medrol was injected in divided doses between those four levels. The needles were then removed intact. The patient experienced no sign or symptoms of intrathecal or intravascular injection. The patient experienced no paresthesia. The procedure was completed without any apparent difficulty or any complications. The patient appeared to tolerate it well. Sensory as well as motor exam was unchanged from prior to the procedure. ASSESSMENT AND PLAN: This is a 39-year-old female with lumbosacral spondylosis, lumbosacral degenerative disc disease, lumbar facet arthropathy status post left-sided lumbar radiofrequency ablation of the medial branch L4-S1, patient will continue her current medications, patient will follow-up in approximately 2 weeks for reevaluation. Surgical Findings: 0 Complications Complications: No Admit VTE Documentation VTE Present on Admission: No VTE Mechan Device Prophylaxis: None VTE Pharm Prophylaxis ordered?: No
--- NOTE | 2024-08-14 08:30 | PCM.POST.ANE ---
Anesthesia: Postop Eval I Current Vital Signs Temperature: 97.9 F Pulse Rate: 110 Blood Pressure: 142/96 Respiratory Rate: 22 Pulse Ox: 94 Assessment Airway patent: Yes Spontaneous unlabored respirations: Yes nausea: No Vomiting: No Anesthesia Complication: No Fluid Hydration Crystalloid volume administer (ml): 50 Total IV fluid infused: 50 Progress Note Anesthesia document: Postop Eval 1 completed: Yes
--- NOTE | 2024-08-14 08:59 | POSTOPAN2_ITS ---
Anesthesia Postop Eval I Sum Postop Eval Completion status Anesthesia document: Postop Eval 1 completed: Yes Anesthesia Postop Eval I Summary Anesthesia Postop Eval I Summary: Anesthesia Postop Eval I: Assessment Summary Airway patent Yes 08/14/24 08:30 [email or web address] Spontaneous unlabored Yes 08/14/24 08:30 [email or web address] respirations Mental status nausea No 08/14/24 08:30 [email or web address] Vomiting No 08/14/24 08:30 [email or web address] Anesthesia Postop Eval I: Fluid Summary Crystalloid volume administer 50 08/14/24 08:30 [email or web address] (ml) Colloids volume administered ( ml) Blood Product volume administered (ml) Total IV fluid infused 50 08/14/24 08:30 [email or web address] Anesthesia Postop Eval I: Summary Notes Anesthesia Complication No 08/14/24 08:30 [email or web address] Anesthesia Complication Comment: Post-operative progress note Anesthesia: Postop Eval II Evaluation Mental status: Awake Pain Level: 0 nausea: No Vomiting: No
--- NOTE | 2024-08-14 08:59 | PCM.POSTANE2 ---
Anesthesia Postop Eval I Sum Postop Eval Completion status Anesthesia document: Postop Eval 1 completed: Yes Anesthesia Postop Eval I Summary Anesthesia Postop Eval I Summary: Anesthesia Postop Eval I: Assessment Summary Airway patent Yes 08/14/24 08:30 [email or web address] Spontaneous unlabored Yes 08/14/24 08:30 [email or web address] respirations Mental status nausea No 08/14/24 08:30 [email or web address] Vomiting No 08/14/24 08:30 [email or web address] Anesthesia Postop Eval I: Fluid Summary Crystalloid volume administer 50 08/14/24 08:30 [email or web address] (ml) Colloids volume administered ( ml) Blood Product volume administered (ml) Total IV fluid infused 50 08/14/24 08:30 [email or web address] Anesthesia Postop Eval I: Summary Notes Anesthesia Complication No 08/14/24 08:30 [email or web address] Anesthesia Complication Comment: Post-operative progress note Anesthesia: Postop Eval II Evaluation Mental status: Awake Pain Level: 0 nausea: No Vomiting: No
== END 2024-08-14 09:01 | disposition home or self-care (01) ==
LOC: SDC 06:43 → AC 06:44
PROVIDERS: Anesthesiology; PCP Internal Medicine; Referring Provider Anesthesiology Pain Medicine; Visit Provider Anesthesiology Pain Medicine
PROC: 3E0S3BZ Introduction of Anesthetic Agent into Epidural Space, Percutaneous Approach (ICD-10-PCS; CPT 62322; principal; 2024-08-14 08:25)
DX: M47.817 Spondylosis without myelopathy or radiculopathy, lumbosacral region (principal); E11.9 Type 2 diabetes mellitus without complications; M51.379 Other intervertebral disc degeneration, lumbosacral region without mention of lumbar back pain or lower extremity pain; M46.97 Unspecified inflammatory spondylopathy, lumbosacral region; G47.30 Sleep apnea, unspecified; I10 Essential (primary) hypertension; E78.00 Pure hypercholesterolemia, unspecified; K21.9 Gastro-esophageal reflux disease without esophagitis; Z79.899 Other long term (current) drug therapy; Z79.84 Long term (current) use of oral hypoglycemic drugs
CPT/HCPCS: 64636; 64635; 72110; 76000; 81025; 82962; A4216

== ENCOUNTER → 2024-10-09 | Outpatient (CLI) | payer MEDICAID, SELFPAY ==
--- NOTE | 2024-10-09 09:00 | RAD_ITS ---
PROCEDURE: CERV SPINE 4 OR 5 VIEWS 10/09/2024 REASON FOR EXAM: CERVICAL SPINE PAIN TECHNIQUE: AP, lateral, bilateral oblique, and open-mouth odontoid views of the cervical spine were obtained. COMPARISON: None. FINDINGS: Fracture/dislocation: None visible. Vertebral body heights: Preserved. Alignment: Straightening of the normal cervical lordosis which may be positional or related to pain/muscular spasm Disc spaces: Relatively preserved. Facets: Grossly unremarkable. Soft tissues: Unremarkable. Foreign bodies: None visible. Bone mineralization: Grossly unremarkable. Other: None. RAD/Cerv Spine 4 or 5 Views IMPRESSION: 1. No visible acute displaced fracture. Straightening of the normal cervical l ordosis which may be positional or related to pain/muscular spasm. If concern persists, consider CT/MRI. 2. No significant radiographically evident cervical spondylosis. Reading Location: [id number]
== END | disposition home or self-care (01) ==
LOC: RAD 08:52
PROVIDERS: PCP Internal Medicine; Referring Provider Clinical Nurse Specialist Adult Health; Visit Provider Clinical Nurse Specialist Adult Health
DX: M54.2 Cervicalgia (principal)
CPT/HCPCS: 72050

== ENCOUNTER 2024-11-13 08:27 | Day surgery (SDC) | payer MEDICAID, SELFPAY ==
--- NOTE | 2024-11-13 07:55 | RAD_ITS ---
PROCEDURE: Fluoro for procedure REASON FOR EXAM: BLOCK, CERVICAL EPIDURAL TECHNIQUE: 2 images, 11.5 seconds, 5.80 mGy. COMPARISON: None FINDINGS: Fluoro was provided. RAD/Cerv Spine 2 or 3 Views IMPRESSION: Fluoro was provided. Reading Location: [id number]
[2024-11-13 08:42] VITALS: BP 136/98; PULSE 104; RESP 20; TEMP 36.6; O2SAT 100; BMI 53.5
[2024-11-13 09:12] LABS: Bedside Glucose 168 mg/dL (74-106)
[2024-11-13 09:15] VITALS: BP 136/96; BP 150/103; BP 158/110; O2SAT 100; O2SAT 98
[2024-11-13] MEDS: MethylPREDNISolone Acetate 80 MG/ML Vial (09:21)
--- NOTE | 2024-11-13 09:28 | OP.PCM_ITS ---
Operative Report (Standard) Operative Information Date of Procedure: 11/13/24 Pre-Operative Diagnosis: 0 Post-Operative Diagnosis: 0 Surgery/Procedure Performed: 0 lens and frames prescription clerk: No Type of Anesthesia: Local RN Documented Start/Stop Times: Operation Date: 11/13/24 08:55 Case Time Into Pre-Op 11/13/24 08:31 Out of Pre-Op 11/13/24 09:02 Into Room 11/13/24 09:12 Procedure Start 11/13/24 09:20 Procedure End 11/13/24 09:24 Anesthesia End 11/13/24 09:27 Out of Room 11/13/24 09:27 Procedure Start Time: 09:30 Procedure Stop Time: 09:30 Select all DRAINS/GRAFTS/IMPLANTS that apply: None Estimated Blood Loss: 0 Specimen collected: No Description of surgery: PREOPERATIVE DIAGNOSES: Cervical radiculopathy, cervical degenerative disc disease, cervical spinal stenosis POSTOPERATIVE DIAGNOSES:Cervical radiculopathy, cervical degenerative disc disease, cervical spinal stenosis PROCEDURE PERFORMED: Cervical epidural steroid injection, interlaminar at C7-T1 under fluoroscopic guidance. ANESTHESIA: Local. BLOOD LOSS: Minimal. COMPLICATIONS: None. DESCRIPTION OF PROCEDURE: History and physical of today was reviewed. Risks and benefits of the procedure were explained. The patient understood and agreed to proceed. Informed consent was obtained. IV inserted per routine protocol. The patient was taken to the operating room and placed in the prone position with a pillow positioned underneath the chest. The neck area was prepped and draped in a sterile fashion using iodine x3. Under fluoroscopy guidance on an AP view, the C7-T1 interlaminar space was identified. The skin and subcutaneous tissue was anesthetized with approximately 3 mL of 1% lidocaine using a 25-gauge regular needle. Under direct visualization on fluoroscopy, on AP view, using a 20-gauge 2-1/2-inch Tuohy needle, the needle was advanced via the skin. The tip of the needle was maneuvered and directed towards the interlaminar space at C7- T1. Loss of resistance technique was carried to air. Loss of resistance technique was encountered. Once encountered, after negative aspiration for blood and CSF, a total of 1 mL of contrast was injected to confirm correct placement of the needle as well as cephalocaudal spread of the contrast. Confirmation was obtained on AP as well as lateral view. After repeated negative aspiration and confirmation, a total of 3 mL of preservative-free normal saline and 80 mg of Depo-Medrol was injected easily. The needle was then removed intact. The patient experienced no sign or symptoms of intrathecal or intravascular injection. The patient experienced no paresthesia. The procedure was completed without any apparent difficulty or any complications. The patient appeared to tolerate it well. ASSESSMENT AND PLAN: This is a 39-year-old female with cervical radiculopathy, cervical degenerative disc disease, cervical spinal stenosis, status post cervical epidural steroid injection interlaminar at C7-T1 under fluoroscopic guidance, patient will continue her current medications, patient will follow-up in approximately 2 weeks for reevaluation. Surgical Findings: 0 Complications Complications: No Admit VTE Documentation VTE Present on Admission: No VTE Mechan Device Prophylaxis: None VTE Pharm Prophylaxis ordered?: No
[2024-11-13 09:40] VITALS: BP 124/82; BP 136/98; PULSE 95; RESP 16; TEMP 36.4; O2SAT 97
== END 2024-11-13 09:42 | disposition home or self-care (01) ==
LOC: SDC 08:28 → AC 08:29
PROVIDERS: PCP Internal Medicine; Referring Provider Anesthesiology Pain Medicine; Visit Provider Anesthesiology Pain Medicine
PROC: 3E0S3BZ Introduction of Anesthetic Agent into Epidural Space, Percutaneous Approach (ICD-10-PCS; CPT 62320; principal; 2024-11-13 08:50)
DX: M50.10 Cervical disc disorder with radiculopathy, unspecified cervical region (principal); M48.02 Spinal stenosis, cervical region
CPT/HCPCS: 62321; 64490; 72040; 82962; A4216

== ENCOUNTER 2025-01-29 06:57 | Day surgery (SDC) | payer MEDICAID, SELFPAY ==
--- OUTSIDE RECORDS SUMMARY | 2025-01-29 07:14 | XMS RPT_ITS | CCD ---
Author Organization [facility] Care Team Providers Care Electrician Research Name Role Phone Pavchristophe Pari R Unavailable Unavailable PROVIDER, UNKNOWN Unavailable Unavailable Pavelko, Pari R Unavailable Unavailable CHRISSY BROOKS Unavailable Unavailable PROVIDER, UNKNOWN Unavailable Unavailable Pavelko, Pari R Unavailable Unavailable CHRISSY BROOKS Unavailable Unavailable PROVIDER, UNKNOWN Unavailable Unavailable Pavelko, Pari R Unavailable Unavailable MARTIN GARCIA Unavailable Unavailable OCAMPO, LENA S Unavailable Unavailable RICHARD SALAS Unavailable Unavailable RICHARD SALAS Unavailable Unavailable OCAMPO, LENA S Unavailable Unavailable OCAMPO, LENA S Unavailable Unavailable Venkata Achal M. Unavailable Unavailable Venkata Achal M. Unavailable Unavailable Foorsov, Denis Unavailable Unavailable Foorsov, Denis Unavailable Unavailable Pavelko, Pari R Unavailable Unavailable Pavelko, Pari R Unavailable Unavailable Foorsov, Denis Unavailable Unavailable Foorsov, Denis Unavailable Unavailable Pavelko, Pari R Unavailable Unavailable AckermanValentine Unavailable Unavailable Ackerman, Valentine A Unavailable Unavailable Pavelko, Pari R Unavailable Unavailable Pavelamy, Pari R Unavailable Unavailable Kassi Muniz Unavailable Unavailable Kassi Muniz Unavailable Unavailable Pari Avila R Unavailable Unavailable Kassi Muniz Unavailable Unavailable Kassi Muniz Unavailable Unavailable PavelPari reyes R Unavailable Unavailable Pari Noyola Primary Care Provider Kassi Muniz Unavailable Unavailable Pari Noyola Unavailable Unavailable Denis Chaudhari Unavailable Unavailable Unavailable Unavailable Unavailable Pari Noyola MD Primary Care Provider Dr. Stephon Benton Attending Provider [facility], Out of Primary Care Provider Unavai Dr. Lito Mera Attending Provider Jazmín LINARES, Pari R Primary Care Provider [phone] Jazmín LINARES, Pari R Primary Care Provider PROVIDER, UNKNOWN Referring Unavailable Jazmín, Pari Primary Care Unavailable COBY DE JESUS Attending Unavailable Jazmín, Pari Primary Care Unavailable PROVIDER, UNKNOWN Referring Unavailable Jazmín, Pari Attending Unavailable PROVIDER, UNKNOWN Referring Unavailable Maral, Salome Attending Unavailable Jazmín, Pari Primary Care Unavailable Jazmín, Pari Primary Care Unavailable PROVIDER, UNKNOWN Referring Unavailable Maral, Salome Attending Unavailable Jazmín, Pari Primary Care Unavailable Rk Mcclain Attending Unavailable PROVIDER, UNKNOWN Referring Unavailable Jazmín, Pari Attending Unavailable PROVIDER, UNKNOWN Referring Unavailable Jazmín, Pari Primary Care Unavailable PROVIDER, UNKNOWN Referring Unavailable JOSE EDUARDO, COBY Attending Unavailable Jazmín, Pari Primary Care Unavailable Jazmín, Pari Primary Care Unavailable COBY DE JESUS Attending Unavailable PROVIDER, UNKNOWN Referring Unavailable Denis Garcia MD Primary Care Provider Pari Noyola MD R Primary Care Provider Unavailable Primary Care Provider Unavailabl e Denis Garcia Primary Care Provider Dr. Denis Garcia Primary Care Provider Dr. Denis Garcia Referring Provider KONSTANTIN Galeas Attending Provider DENIS GARCIA Primary Care Unavailable SALOME ALICIA Attending Unavailable MARAL, SALOME Attending Unavailable Denis Garcia MD Primary Care Provider Pari Noyola MD R Primary Care Provider Pari Noyola MD R Primary Care Provider Dr. Denis Garcia MD Primary Care Provider Dr. Cas Leavitt MD Attending Provider [phone] Dr. Cas Leavitt MD Referring Provider NP. Irma Yu Attending Provider NP. Irma Yu Referring Provider Jason PARTS SALVAGER.SHOWROOM SALES CONSULTANTGinny Unavailable [phone] GINNY GOMEZ M Referring Unavailable GARCIA, AZRA Primary Care Unavailable JASON, GINNY M Attending Unavailable GARCIA, AZRA Primary Care Unavailable JASON, GINNY M Attending Unavailable GARCIA, AZRA Primary Care Unavailable JASON, GINNY M Referring Unavailable GARCIA, AZRA Primary Care Unavailable Irma Yu Attending Unavailable Garcia, Denis Primary Care Unavailable Irma Yu Referring Unavailable Garcia, Denis Primary Care Unavailable Miguel Casanova Attending Unavailable Tree, Cas Attending Unavailable Garcia, Denis Primary Care Unavailable Tree, Cas Referring Unavailable Tree, Cas Attending Unavailable Garcia, Denis Primary Care Unavailable Tree, Cas Referring Unavailable Tree, Cas Referring Unavailable Garcia, Denis Primary Care Unavailable Tree, Cas Attending Unavailable Tree, Cas Referring Unavailable Garcia, Denis Primary Care Unavailable Tree, Cas Attending Unavailable Tree, Cas Referring Unavailable Garcia, Denis Primary Care Unavailable Cas Leavitt Attending Unavailable Allergies Allergy Classification Reported Allergen(s) Allergy Type Date of Onset Reaction(s) Facility Amitriptyline (1 source) [facility] Work Phone: Anti-Epileptic Agents (1 source) gabapentin [facility] Work Phone: DULoxetine (1 source) DULoxetine [facility] Work Phone: (20 sources) amitriptyline; Translations: [AMITRIPTYLINE HCL] Drug Allergy 7 Other (See Comments), Other: See Comments [facility] Repository (20 sources) DULoxetine; Translations: [DULOXETINE] Drug Allergy 5 Other (See Comments), Other: See Comments, Cough, Other [facility] Repository (20 sources) gabapentin; Translations: [GABAPENTIN] Drug Allergy 5 Other (See Comments), Other: See Comments, Other [facility] Repository (1 source) NO KNOWN ALLERGIES; Translations: [NO KNOWN ALLERGIES] Propensity to adverse reactions to drug (disorder) [facility] Repository (1 source) Amitriptyline; Translations: [Elavil] Drug Allergy [facility] Repository (1 source) DULoxetine; Translations: [Cymbalta] Drug Allergy [facility] Repository (20 sources) Amitriptyline Drug Allergy 5 [place], [place] (5 sources) DULoxetine Drug Allergy 5 [place] (16 sources) Mirtazapine Drug Allergy 2 NEEDS FOLLOW-UP [facility] (16 sources) Adhesive Tape; Translations: [adhesive tape] Allergy to substance 2 BLISTERS [facility] (1 source) Amitriptyline Drug Allergy 5 [facility] Repository (1 source) Mirtazapine Drug Allergy 5 [facility] Repository Medications Current Medications Medication Drug Class(es) Dates Sig (Normalized) Sig (Original) acetaminophen 325 mg / HYDROcodone bitartrate 5 mg oral tablet (20 sources) Opioid Agonist Start: 03-11-2023 take 1 tablet by mouth twice daily as needed Hydrocodone-Aceta minophen Active 1 TABLET PO TWICE DAILY NEEDED March 10, 2023 11:00pm Start: 10-12-2021 End: 03-11-2023 Hydrocodone-Acetaminophen 1 TABLET tablet Discontinued 1 {tbl} PO EVERY 4 HOURS NEEDED as needed for Pain 8 2 October 12, 2021 March 11, 2023 10:44am Start: 10-12-2021 End: 03-11-2023 take 1 tablet by mouth every four hours as needed Hydrocodone-Acetaminophen Discontinued 1 TABLET PO EVERY 4 HOURS NEEDED 8 October 12, 2021 March 11, 2023 9:44am Start: 11-17-2019 End: 11-19-2019 Hydrocodone-Acetaminophen 1 TABLET tablet Discontinued 1 {tbl} PO EVERY 4 HOURS NEEDED as needed for Pain 10 November 17, 2019 November 18, 2019 12:00am November 19, 2019 12:02am Start: 11-17-2019 End: 11-19-2019 take 1 tablet by mouth every four hours as needed Hydrocodone-Acetaminophen Discontinued 1 TABLET PO EVERY 4 HOURS NEEDED 03 29November 17, 2019 November 18, 2019 11:02pm Start: 06-02-2017 take 1 tablet by rachelle th every twelve hours as needed HYDROcodone-acetaminophen (NORCO) 5-325 mg per tablet Take 1 tablet by mouth two times a day as needed. 06/02/2017 Active Start: 06-02-2017 End: 09-03-2023 take 1 tablet by mouth every six hours as needed HYDROcodone-acetaminophen (NORCO) 5-325 mg per tablet Take 1 tablet by mouth every 6 hours as needed. 30 tablet 06/02/2017 09/03/2023 Discontinued Comment on above: Take 1 tablet by rachelle th every 6 hours as needed. Take 1 tablet by rachelle th two times a day as needed. albuterol 0.83 mg/ml inhalation solution (20 sources) beta2-Adrenergic Agonist Start: 03-31-2021 albuterol (PROVENTIL) 2.5 mg /3 mL (0.083 %) nebulizer solution Use 2.5 mg via nebulizer as needed. 03/31/2021 Active Start: 03-31-2021 take 2 puff(s) by in halation every four hours as needed albuterol HFA (PROVENTIL HFA, VENTOLIN HFA) 90 mcg/actuation inhaler Inhale 2 Puffs as instructed every 4 hours as needed. 03/31/2021 Active Start: 03-31-2021 albuterol (2.5 MG/3ML) 0.083% nebulizer solution Take 3 mL by nebulization every 6 hours as needed. 0 03/31/2021 Active Start: 03-31-2021 albuterol 108 (90 Base) MCG/ACT inhaler Inhale 2 puffs. 0 03/31/2021 Active Start: 03-31-2021 take 2 puff(s) by in halation four times daily as needed for wheezing albuterol sulfate HFA (VENTOLIN HFA) 108 (90 Base) MCG/ACT inhaler Indications: Cough Inhale 2 puffs into the lungs 4 times daily as needed for Wheezing 54 g 1 03/31/2021 Active Comment on above: 2.5 mg. Inhale 2 Puffs as in structed. Use 2.5 mg via nebul izer as needed. Inhale 2 Puffs as in structed every 4 hours as needed. ALPRAZolam 0.25 mg disintegrating oral tablet (1 source) Benzodiazepine Start: 09-02-19 ALPRAZolam (NIRAVAM) dissolvable tablet 0.25 mg ARIPiprazole 10 mg oral tablet (20 sources) Atypical Antipsychotic Start: 01-28-20 take 2 tablets by mouth once ARIPiprazole (ABILIFY) 10 mg tablet Take 2 tablets by mouth every afternoon. 08/29/2023 Active Start: 01-27-2023 take 20 mg by mouth once daily Aripiprazole Active 20 MG PO DAILY January 26, 2023 11:00pm Start: 05-22-2022 take 1 tablet by rachelle th once daily ARIPiprazole (Abilify) 10 MG tablet Take 10 mg by mouth daily. 0 05/22/2022 Active End: 09-03-2023 take 1 tablet by mouth once daily ARIPiprazole (ABILIFY) 15 mg tablet Take 15 mg by mouth once daily. 09/03/2023 Discontinued Comment on above: Take 15 mg by mouth once daily. Take 2 tablets by mo uth every afternoon. Blood Glucose Monitoring Suppl (FREESTYLE FREEDOM LITE) w/Device KIT (5 sources) Start: 12-09-2020 Blood Glucose Monitoring Suppl (FREESTYLE FREEDOM LITE) w/Device KIT Indications: Type 2 diabetes mellitus with hyperglycemia, without long-term current use of insulin ([facility]) 1 kit by Does not apply route daily 1 kit 0 12/09/2020 Active Start: 12-09-2020 Blood Glucose Monitoring Suppl (FREESTYLE FREEDOM LITE) w/Device KIT Indications: Type 2 diabetes mellitus with hyperglycemia, without long-term current use of insulin ([facility]) 1 kit by Does not apply route daily 1 kit 0 12/09/2020 Suspended Start: 05-02-2018 Blood Glucose Monitoring Suppl (FREESTYLE FREEDOM LITE) w/Device KIT Indications: Abnormal glucose 1 kit by Does not apply route daily 1 kit 0 05/02/2018 Active Blood Pressure Monitoring (BLOOD PRESSURE MONITOR/[place] CU[place] [facility] [place] Start: 01-23-2021 Blood Pressure Monitoring (BLOOD PRESSURE MONITOR/L CUFF[place] [facility]: Essential hypertension 1 Units by Does not apply route daily 1 each 0 01/23/2021 Active Start: 01-23-2021 Blood Pressure Monitoring (BLOOD PRESSURE MONITOR/L CUFF[place] [facility]: Essential hypertension 1 Units by Does not apply route daily 1 each 0 01/23/2021 Suspended Blood-Glucose Meter (3 sources) Start: 12-25-2024 Blood-Glucose Meter Test blood sugar(s) 1 times daily. Dx: Type 2 DM - unontrolled E11.65 Insulin: No 1 each 12/25/2024 Active brexpiprazole 2 mg oral tablet (3 sources) Atypical Antipsychotic Start: 03-06-2021 End: 08-10-2022 brexpiprazole (REXULTI) 2 mg tablet Take 2 mg by mouth. 0 03/06/2021 08/10/2022 Discontinued (Discontinued by another Health Care Provider) Start: 02-21-2021 take 1 tablet by rachelle th once daily Brexpiprazole (Rexulti) 1 mg Tablet Active 1 MG PO DAILY February 21, 2021 7:03am Comment on above: Take 2 mg by mouth. calcium chloride 0.0014 meq/ml / potassium chloride 0.004 meq/ml / sodium chloride 0.103 meq/ml / sodium lactate 0.028 meq/ml injectable solution (1 source) Start: 2 lactated ringers infusion cetirizine hydrochloride 10 mg oral tablet (20 sources) Histamine-1 Receptor Antagonist Start: 2 End: 3 take 1 tablet by mouth once daily cetirizine (ZYRTEC) 10 mg tablet Take 1 tablet by mouth once daily. 90 tablet 3 09/04/2022 Active Comment on above: Take 10 mg by mouth once daily. Take 1 tablet by rachelle th once daily. cloNIDine hydrochloride 0.1 mg oral tablet (20 sources) Central alpha-2 Adrenergic Agonist Start: take 1 tablet by mouth twice daily cloNIDine (Catapres) 0.1 MG tablet Take 0.1 mg by mouth 2 times daily. 0 02/17/2021 Active Start: 02-17-2021 End: 08-10-2022 take 0.1 mg by mouth once daily Clonidine Hcl Active 0 .1 MG PO DAILY February 21, 2021 12:00am Comment on above: Take 0.1 mg by mouth . dapagliflozin 10 mg oral tablet (20 sources) Sodium-Glucose Cotransporter 2 Inhibitor Start: End: take 1 tablet by mouth once daily at breakfast dapagliflozin propanediol (FARXIGA) 10 mg tablet Indications: Controlled type 2 diabetes mellitus without complication, without long-term current use of insulin ([facility]) Take 1 tablet by mouth daily with breakfast. 90 tablet 1 12/25/2024 Active Start: 03-24-2022 take 1 tablet by rachelle th once daily in the morning FARXIGA 10 MG tablet Indications: Type 2 diabetes mellitus with hyperglycemia, without long-term current use of insulin ([facility]) TAKE 1 TABLET BY MOUTH EVERY DAY IN THE MORNING 30 tablet 3 03/24/2022 Active Start: 12-04-2021 take 1 tablet by rachelle th once daily in the morning dapagliflozin (FARXIGA) 10 MG tablet Indications: Type 2 diabetes mellitus with hyperglycemia, without long-term current use of insulin ([facility]) Take 1 tablet by mouth every morning 30 tablet 3 12/04/2021 Active Start: 06-23-2021 End: 03-03-2023 take 1 tablet by mouth once daily Dapagliflozin Propanediol (Farxiga) 5 mg Tablet Active 15 mg PO DAILY July 23, 2021 1:00am Start: 06-23-2021 End: 08-18-2022 take 2 tablets by mouth once daily in the morning dapagliflozin (FARXIGA) 5 mg tablet Take 10 mg by mouth every morning. 0 06/23/2021 08/18/2022 Discontinued Comment on above: Take 10 mg by mouth every morning. Take 1 tablet by rachelle th every morning. Take 1 tablet by rachlele th daily with breakfast. 1 ml diphenhydrAMINE hydrochloride 50 mg/ml cartridge (1 source) Histamine-1 Receptor Antagonist Start: End: diphenhydrAMINE (BENADRYL) injection 12.5 mg 250 ml DOBUTamine 1 mg/ml injection (1 source) beta-Adrenergic Agonist Start: DOBUTamine (DOBUTREX) 250 mg in dextrose 5 % 250 mL infusion dulaglutide (Trulicity) 3 MG/0.5ML solution pen-injector (9 sources) Start: 023 inject 3 mg by subcutaneous injection every week dulaglutide (Trulicity) 3 MG/0.5ML solution pen-injector Inject 3 mg under the skin 1 (one) time per week. 2 mL 1 07/08/2022 Active Start: 07-08-2022 End: 08-07-2022 inject 3 mg by subcutaneous injection every week dulaglutide (Trulicity) 3 MG/0.5ML solution pen-injector Inject 3 mg under the skin 1 (one) time per week. 2 mL 1 07/08/2022 08/07/2022 Active ergocalciferol 1.25 mg oral capsule (20 sources) Provitamin D2 Compound Start: 12-17-2022 End: 03-06-2024 take 1 capsule by mouth every week ergocalciferol 50,000 unit capsule (VITAMIN D2, DRISDOL) Indications: Vitamin D deficiency Take 1 capsule by mouth one time a week. 12 capsule 3 03/06/2024 Active Start: 04-20-2017 End: 08-10-2022 take 1 capsule by mouth every week ergocalciferol, vitamin D2, (VITAMIN D) 50,000 unit capsule Take 1 capsule by mouth once each week. 12 capsule 04/20/2017 08/10/2022 Discontinued (Course of therapy completed) Comment on above: Take 1 capsule by mo uth once each week. Take 1 capsule by mo uth one time a week. glipiZIDE er 10 mg 24 hr extended release oral tablet (20 sources) Sulfonylurea Start: 09-13-2023 take 2 tablets by mouth once daily Glipizide 5 mg tablet Active 10 mg PO DAILY September 13, 2023 9:30am Start: 06-02-2023 End: 12-25-2024 take 1 tablet by mouth once daily at breakfast glipiZIDE (GLUCOTROL XL) 10mg 24 hr tablet Indications: Controlled type 2 diabetes mellitus without complication, without long-term current use of insulin (HCC) Take 1 tablet by mouth daily with breakfast. 90 tablet 1 12/25/2024 Active Start: 03-11-2023 End: 09-13-2023 take 1 tablet by mouth once daily Glipizide 5 mg tablet Discontinued 5 mg PO DAILY March 11, 2023 12:00am September 13, 2023 9:30am Start: 03-03-2023 take 1 tablet by rachelle th once daily at breakfast glipiZIDE (GLUCOTROL XL) 5 mg 24 hr tablet Indications: Controlled type 2 diabetes mellitus without complication, without long-term current use of insulin (HCC) Take 1 tablet by mouth daily with breakfast. 90 tablet 1 03/03/2023 Active Comment on above: Take 1 tablet by rachelle th daily with breakfast. 12 hr guaiFENesin 600 mg extended release oral tablet (1 source) Start: 03-24-20 21 End: 08-10-19 23 take 2 tablets by mouth twice daily guaiFENesin (MUCINEX) 600 mg 12 hr tablet Take 2 tablets by mouth twice daily. 24 tablet 0 03/24/2021 08/10/2022 Discontinued (Course of therapy completed) Comment on above: Take 2 tablets by mo ut twice daily. 1 ml HYDROmorphone hydrochloride 1 mg/ml cartridge (2 sources) Opioid Agonist Start: 09-02-19 HYDROmorphone (DILAUDID) injection 0.5 mg Start: 09-01-2021 HYDROmorphone (DILAUDID) injection 0.25 mg hydrOXYzine hydrochloride 50 mg oral tablet (20 sources) Antihistamine Start: 12-25-2024 take 1 tablet by mouth every eight hours as needed hydrOXYzine HCl (ATARAX) 50 mg tablet Take 1 tablet by mouth three times a day as needed. 12/25/2024 Active Start: 06-14-2023 End: 08-23-2023 Hydroxyzine Hcl 50 mg tablet Discontinued mg June 14, 2023 1:00am August 23, 2023 8:05am Start: 06-14-2023 End: 08-23-2023 Hydroxyzine Hcl Discontinued MG June 14, 2023 12:00am August 23, 2023 7:05am Start: 03-11-2023 End: 02-27-2024 take 2 tablets by mouth three times daily as needed Hydroxyzine Hcl 25 mg tablet Discontinued 50 mg PO 3 TIMES DAILY NEEDED March 11, 2023 12:00am February 27, 2024 12:46am Start: 03-11-2023 take 50 mg by mouth three times daily as needed Hydroxyzine Hcl Active 50 MG PO 3 TIMES DAILY NEEDED March 10, 2023 11:00pm Start: 05-27-2022 take 1 tablet by rachelle th three times daily as needed hydrOXYzine HCl (Atarax) 25 MG tablet Take 25 mg by mouth 3 times daily as needed. 0 05/27/2022 Active End: 03-06-2024 take 1-4 tablets by mouth once daily as needed hydrOXYzine HCl (ATARAX) 25 mg tablet Take 25 mg by mouth as needed (Can take 1-4 per day as needed). 03/06/2024 Discontinued (Discontinued by Patient) take 2 capsules by m out four times daily Vistaril 25 MG Oral Capsule TAKE 2 CAPSULE 4 times daily Refills: 0 Active Comment on above: Take 25 mg by mouth as needed (Can take 1-4 per day as needed). ibuprofen 800 mg oral tablet (6 sources) Nonsteroidal Anti-inflammatory Drug Start: 09-01-2021 take 1 tablet by mouth three times daily as needed for pain ibuprofen (ADVIL;MOTRIN) 800 MG tablet Take 1 tablet by mouth 3 times daily as needed for Pain 90 tablet 0 09/01/2021 Active Start: 06-14-2017 End: 08-10-2022 take 1 tablet by mouth every eight hours as needed ibuprofen (MOTRIN) 800 mg tablet Take 1 tablet by mouth every 8 hours as needed. FOR PAIN. 40 tablet 06/14/2017 08/10/2022 Discontinued (Course of therapy completed) Comment on above: Take 1 tablet by rachelle th every 8 hours as needed. FOR PAIN. insulin lispro 100 unt/ml injectable solution (1 source) Insulin Analog Start: insulin lispro (HUMALOG) injection vial 0-12 Units labetalol (NORMODYNE;TRANDATE) injection 10 mg (1 source) Start: labetalol (NORMODYNE;TRANDATE) injection 10 mg lamoTRIgine 25 mg oral tablet (2 sources) Mood Stabilizer, Anti-epileptic Agent Start: End: lamoTRIgine (LAMICTAL) 25 mg tablet levonorgestrel 0.983311 mg/hr intrauterine system (20 sources) Progestin, Progestin-containin g Intrauterine Device Start: levonorgestrel (MIRENA) 20 mcg/24 hours (8 yrs) 52 mg IUD 1 Each by INTRAUTERINE route one time only for 1 dose. 1 Each 08/10/2022 Active Comment on above: 1 Each by INTRAUTERI NE route one time only for 1 dose. 10 ml lidocaine hydrochloride 10 mg/ml injection (1 source) Antiarrhythmic, Amide Local Anesthetic Start: End: lidocaine PF 1 % injection 1 mL lisinopril 10 mg oral tablet (20 sources) Angiotensin Converting Enzyme Inhibitor Start: End: take 1 tablet by mouth once daily lisinopril (ZESTRIL) 10 mg tablet Take 1 tablet by mouth once daily. 90 tablet 1 12/25/2024 Active Comment on above: Take 1 tablet by rachelle th once daily. 1 ml meperidine hydrochloride 25 mg/ml cartridge (1 source) Opioid Agonist Start: meperidine (DEMEROL) injection 12.5 mg metFORMIN hydrochloride 1000 mg oral tablet (1 source) Biguanide Start: take 1 tablet by mouth twice daily at mealtime metFORMIN (GLUCOPHAGE) 1000 MG tablet Indications: Type 2 diabetes mellitus with hyperglycemia, without long-term current use of insulin (HCC) Take 1 tablet by mouth 2 times daily (with meals) 180 tablet 1 10/06/2019 Active 24 hr metoprolol succinate 25 mg extended release oral tablet (9 sources) beta-Adrenergic [place] Start: End: take 1 tablet by mouth once daily metoprolol succinate ER (TOPROL XL) 25 mg 24 hr tablet Take 1 tablet by mouth once daily. 90 tablet 1 12/25/2024 Active nabumetone 500 mg oral tablet (20 sources) Nonsteroidal Anti-inflammatory Drug Start: take 500 mg by mouth twice daily Nabumetone Active 500 MG PO TWICE A DAY November 17, 2019 12:00am Comment on above: Take 500 mg by mouth twice daily. norethindrone acetate 5 mg oral tablet (5 sources) Start: End: take 1 tablet by mouth once daily norethindrone (AYGESTIN) 5 mg tablet Take 1 tablet by mouth once daily. 0 09/26/2019 08/10/2022 Discontinued (Discontinued by another Health Care Provider) Comment on above: Take 1 tablet by rachelle th once daily. pantoprazole 40 mg delayed release oral tablet (20 sources) Proton Pump Inhibitor Start: End: take 1 tablet by mouth once daily before breakfast pantoprazole DR (PROTONIX) 40 mg tablet Take 1 tablet by mouth daily before breakfast. 90 tablet 3 03/16/2024 Active Start: 03-02-2021 take 1 tablet by rachelle th once daily Pantoprazole (Protonix) 20 mg Tablet,Delayed Release (Dr/Ec) Active 20 MG PO DAILY March 02, 2021 3:56am Start: 03-02-2021 take 2 tablets by mo [facility] once daily Pantoprazole (Protonix) 20 mg Tablet,Delayed Release (Dr/Ec) Active 40 mg PO DAILY March 02, 2021 12:00am Start: 10-23-2019 take 1 tablet by rachelle once daily before breakfast pantoprazole (PROTONIX) 40 MG tablet Indications: Gastroesophageal reflux disease, esophagitis presence not specified Take 1 tablet by mouth every morning (before breakfast) 90 tablet 1 10/23/2019 Active Comment on above: Take 1 tablet by rachelle th daily before breakfast. pregabalin 100 mg oral capsule (1 source) take 1 capsule by mouth once daily pregabalin (LYRICA) 100 MG capsule Take 100 mg by mouth daily. 0 Active 24 hr QUEtiapine 150 mg extended release oral tablet (2 sources) Atypical Antipsychotic QUEtiapin e (SEROQUEL) 25 MG tablet Take 25 mg by mouth as needed 0 Active take 1 tablet by mouth once sola y QUEtiapine (SEROQUEL XR) 150 MG TB24 extended release tablet Take 150 mg by mouth daily 0 Active rosuvastatin calcium 20 mg oral tablet (20 sources) HMG-CoA Reductase Inhibitor Start: 02-04-2022 End: 03-15-2024 take 1 tablet by mouth once daily rosuvastatin (CRESTOR) 20 mg tablet Take 1 tablet by mouth once daily. 90 tablet 3 03/16/2024 Active Comment on above: Take 20 mg by mouth once daily. 1000 ml sodium chloride 9 mg/ml injection (7 sources) Start: 09-01-2021 0.9 % sodium chloride infusion Start: 09-01-2021 sodium chlorid e flush 0.9 % injection 10 mL tiZANidine 4 mg oral tablet (13 sources) Central alpha-2 Adrenergic Agonist Start: 08-23-2023 take 1 tablet by mouth every eight hours as needed tiZANidine (ZANAFLEX) 4 mg tablet Take 1 tablet by mouth three times a day as needed. 08/30/2023 Active Comment on above: Take 1 tablet by rachelle three times a day as needed. triamcinolone acetonide 0.055 mg/actuat metered dose nasal spray (1 source) Corticosteroid Start: 03-16-2022 take 2 spray(s) nasal route once daily triamcinolone (NASACORT) 55 MCG/ACT nasal inhaler Indications: Seasonal allergies 2 sprays by Each Nostril route daily 1 each 3 03/16/2022 Active vortioxetine 20 mg oral tablet (20 sources) Start: 03-02-2021 End: 08-10-2022 take 1 tablet by mouth once daily Vortioxetine (Trintellix) 20 mg tablet Active 20 MG PO DAILY March 02, 2021 12:00am Start: 11-27-2019 take 2 tablets by mo [facility] once daily VORTIoxetine (TRINTELLIX) 5 MG tablet Take 2 tablets by mouth daily 1 tablet 0 11/27/2019 Active Comment on above: Take 20 mg by mouth. Completed/Discontinued Medications Medication Drug Class(es) Dates Sig (Normalized) Sig (Original) acetaminophen 500 mg oral tablet (3 sources) Start: 09-01-2021 End: 09-01-2021 acetaminophen (TYLENOL) tablet 1,000 mg End: 08-10-2022 take 2 tablets by mouth every eight hours as needed acetaminophen (TYLENOL) 500 mg tablet Take 1,000 mg by mouth every 8 hours as needed. 08/10/2022 Discontinued (Course of therapy completed) Comment on above: Take 1,000 mg by rachelle every 8 hours as needed. amoxicillin 875 mg / clavulanate 125 mg oral tablet (16 sources) Penicillin-class Antibacterial Start: 01-18-2021 End: 01-28-2021 Amoxicillin-Pot Clavulanate (Augmentin) 875-125 mg tablet Discontinued 1 {tbl} PO TWICE A DAY 16 04January 18, 2021 12:00am January 27, 2021 12:00am January 28, 2021 12:01am take with food baclofen 10 mg oral tablet (20 sources) gamma-Aminobutyric Acid-ergic Agonist Start: 11-17-2019 End: 08-23-2023 Baclofen 10 mg tablet Discontinued 1 {tbl} PO THREE TIMES A DAY November 17, 2019 12:00am August 23, 2023 8:04am Start: 11-17-2019 End: 09-03-2023 take 1 tablet by mouth three times daily Baclofen Discontinued 1 TABLET PO THREE TIMES A DAY November 16, 2019 11:00pm August 23, 2023 7:04am take 1 tablet by rachelle th twice daily as needed baclofen (LIORESAL) 10 MG tablet Take 10 mg by mouth 2 times daily as needed 0 Active Comment on above: Take 10 mg by mouth three times daily. PRN 24 hr buPROPion hydrochloride 300 mg extended release oral tablet (2 sources) Aminoketone End: 3 take 1 tablet by mouth once daily buPROPion XL (WELLBUTRIN XL) 300 mg 24 hr tablet Take 300 mg by mouth once daily. 08/10/2022 Discontinued (Discontinued by another Health Care Provider) Comment on above: Take 300 mg by mouth once daily. busPIRone hydrochloride 15 mg oral tablet (20 sources) Start: 1 End: 4 take 1 tablet by mouth three times daily Buspirone 15 mg tablet Discontinued 15 mg PO THREE TIMES A DAY September 13, 2023 12:00am February 27, 2024 12:46am Start: 02-12-2020 take 10 mg by mouth twice sola y Buspirone Active 10 MG PO TWICE A DAY February 12, 2020 2:35am Start: 02-12-2020 take 15 mg by mouth three times daily Buspirone Active 15 MG PO THREE TIMES A DAY February 12, 2020 12:00am Comment on above: Take 15 mg by mouth three times daily. 12 hr carBAMazepine 200 mg extended release oral tablet (13 sources) Mood Stabilizer Start: 4 End: 4 take 1 tablet by mouth every twelve hours carBAMazepine XR (TEGRETOL XR) 200 mg 12 hr tablet Take 1 tablet by mouth every 12 hours. 08/29/2023 03/06/2024 Discontinued (Discontinued by Patient) Start: 08-23-2023 End: 02-27-2024 take 1 tablet by mouth once daily Carbamazepine 200 mg tablet extended release 12 hr Discontinued 200 mg PO DAILY August 23, 2023 1:00am February 27, 2024 12:46am Start: 03-25-2023 End: 09-03-2023 take 1 tablet by mouth twice daily carBAMazepine, mood stabiliz, 200 mg CM12 Take 1 tablet by mouth two times a day. 0 03/25/2023 09/03/2023 Discontinued Start: 03-25-2023 take 1 tablet by rachelle th once daily carBAMazepine, mood stabiliz, 200 mg CM12 Take 1 tablet by mouth once daily. 0 03/25/2023 Active Comment on above: Take 1 tablet by rachelle th once daily. Take 1 tablet by rachelle th two times a day. Take 1 tablet by rachelle th every 12 hours. 0.5 ml dulaglutide 3 mg/ml auto-injector (20 sources) GLP-1 Receptor Agonist Start: 07-09-2023 End: 08-20-2023 dulaglutide (TRULICITY) 1.5 mg/0.5 mL pen injector Indications: Controlled type 2 diabetes mellitus without complication, without long-term current use of insulin (HCC) Inject 1.5 mg subcutaneously one time a week. Inject once per week. Discard Pen After 2 mL 3 07/09/2023 08/20/2023 Discontinued Start: 06-10-2022 End: 03-03-2023 inject 1.5 mg by subcutaneous injection every week dulaglutide (Trulicity) 1.5 MG/0.5ML solution pen-injector Inject 1.5 mg under the skin 1 (one) time per week. 4 pen 0 06/15/2022 Active Comment on above: Inject 1.5 mg subcut aneously one time a week. Inject once per week. Discard Pen After dulaglutide (TRULICITY) 3 mg/0.5 mL pen injector (3 sources) Start: 023 End: 023 inject 3 mg by subcutaneous injection every week dulaglutide (TRULICITY) 3 mg/0.5 mL pen injector Inject 3 mg subcutaneously one time a week. 0 08/10/2022 08/18/2022 Discontinued (Dosage adjustment) Start: 08-10-2022 inject 3 mg by subcu taneous injection every week dulaglutide (TRULICITY) 3 mg/0.5 mL pen injector Inject 3 mg subcutaneously one time a week. 0 08/10/2022 Active Comment on above: Inject 3 mg subcutan eously one time a week. famotidine 20 mg oral tablet (13 sources) Histamine-2 Receptor Antagonist Start: 09-01-2021 End: 09-01-2021 famotidine (PEPCID) tablet 20 mg Start: 12-22-2016 End: 08-10-2022 famotidine (PEPCID) 40 mg ta blet Take by mouth. 12/22/2016 08/10/2022 Discontinued (Course of therapy completed) Comment on above: Take by mouth. 1 ml LORazepam 2 mg/ml injection (2 sources) Benzodiazepine Start: 09-01-2021 End: 09-01-2021 LORazepam (ATIVAN) injection 1 mg Start: 09-01-2021 End: 09-01-2021 LORazepam (ATIVAN) 2 MG/ML i njection 2 ml ondansetron 2 mg/ml injection (20 sources) Serotonin-3 Receptor Antagonist Start: 09-01-2021 End: 09-01-2021 ondansetron (ZOFRAN) injection 4 mg Start: 03-18-2021 take 1 tablet by rachelle th twice daily as needed for nausea ondansetron (ZOFRAN) 4 MG tablet Indications: Nausea Take 1 tablet by mouth 2 times daily as needed for Nausea or Vomiting 30 tablet 0 03/18/2021 Active Start: 06-07-2018 take 1 tablet by rachelle th three times daily as needed for nausea ondansetron (ZOFRAN) 4 MG tablet Indications: Nausea Take 1 tablet by mouth 3 times daily as needed for Nausea or Vomiting 30 tablet 0 06/07/2018 Active take 1 tablet by rachelle th every eight hours as needed ondansetron (ZOFRAN) 4 mg tablet Take 4 mg by mouth every 8 hours as needed. Active Comment on above: Take 4 mg by mouth e very 8 hours as needed. perflutren lipid microspheres (DEFINITY) injection 1.65 mg (1 source) Start: 03-31-20 End: 03-31-20 perflutren lipid microspheres (DEFINITY) injection 1.65 mg 0.25 mg, 0.5 mg dose 1.5 ml semaglutide 1.34 mg/ml pen injector (2 sources) Start: 09-13-19 End: 02-27-20 Semaglutide 0.25 mg or 0.5 mg(2 mg/1.5 mL) pen injector Discontinued 0.5 mg SC EVERY WEEK September 13, 2023 12:00am February 27, 2024 12:46am semaglutide (OZEMPIC) 0.25 mg or 0.5 mg (2 mg/3 mL) pen (10 sources) Start: 08-20-19 End: 12-26-19 inject 0.5 mg by subcutaneous injection every week semaglutide (OZEMPIC) 0.25 mg or 0.5 mg (2 mg/3 mL) pen Indications: Controlled type 2 diabetes mellitus without complication, without long-term current use of insulin (HCC) Inject 0.5 mg subcutaneously one time a week. 3 mL 2 08/20/2023 12/25/2024 Discontinued (Not on Formulary) Start: 08-20-2023 inject 0.5 mg by sub cutaneous injection every week semaglutide (OZEMPIC) 0.25 mg or 0.5 mg (2 mg/3 mL) pen Indications: Controlled type 2 diabetes mellitus without complication, without long-term current use of insulin (HCC) Inject 0.5 mg subcutaneously one time a week. 3 mL 2 08/20/2023 Active Comment on above: Inject 0.5 mg subcut aneously one time a week. sertraline 100 mg oral tablet (3 sources) Serotonin Reuptake Inhibitor End: 08-10-19 take 1 tablet by mouth once daily, then take 2 tablets by mouth once daily sertraline (ZOLOFT) 100 mg tablet Take 100 mg by mouth once daily. Takes 200 mg daily 08/10/2022 Discontinued (Discontinued by another Health Care Provider) take 0.5 tablet by mouth once da kerry Zoloft 50 MG Oral Tablet TAKE 1/2 TABLET DAILY. Refills: 0 Active Comment on above: Take 100 mg by mouth once daily. Takes 200 mg daily traZODone hydrochloride 150 mg oral tablet (15 sources) Serotonin Reuptake Inhibitor Start: 3 End: take 1 tablet by mouth at bedtime as needed Trazodone 150 mg tablet Discontinued 150 mg PO AT BEDTIME as needed for insomnia June 14, 2023 1:00am February 27, 2024 12:46am End: 08-10-2022 take 1-2 tablets by mouth once daily as needed traZODone (DESYREL) 50 mg tablet Take 50 mg by mouth daily at bedtime. 1-2 at night as needed 08/10/2022 Discontinued (Discontinued by another Health Care Provider) take 1 tablet by rachelle th three times daily traZODone HCl - 50 MG Oral Tablet TAKE 1 TABLET 3 times daily Refills: 0 Active Comment on above: Take 50 mg by mouth daily at bedtime. 1-2 at night as needed Take 150 mg by mouth daily at bedtime. divalproex sodium 500 mg delayed release oral tablet (20 sources) Mood Stabilizer, Anti-epileptic Agent Start: 10-23-2021 End: 08-23-2023 take 1 tablet by mouth twice daily Divalproex (Depakote) 500 mg Tablet,Delayed Release (Dr/Ec) Discontinued 500 mg PO TWICE A DAY November 07, 2021 12:00am August 23, 2023 8:04am Comment on above: Take 500 mg by mouth twice daily. Problems Active Problems Problem Classification Problem Date Documented Da te Episodic/Chronic Abdominal pain (20 sources) Epigastric pain; Translations: [Acute pain in female pelvis] 10-20-2021 Episodic Acute and chronic tonsillitis (20 sources) Hypertrophy of tonsils AND adenoids; Translations: [Chronic tonsillitis] Onset: 09-18-2011 Resolved: 05-28-2017 04-05-2017 Chronic Anxiety disorders (20 sources) Anxiety disorder, unspecified; Translations: [Other specified anxiety disorders] Onset: 08-25-2021 Chronic Comment on above: [facility] ON MEDS Appendicitis and other appendiceal conditions (1 source) [...] mellitus without complications] Onset: 07-23-2021 08-18-2021 Chronic Diabetes mellitus without complication (18 sources) Hyperglycemia; Translations: [Hyperglycemia, unspecified] 09-30-2019 Episodic Diseases of white blood cells (20 sources) Leukemoid reaction; Translations: [Leukemoid reaction] Onset: 12-08-2022 Chronic E Codes: Fall (3 sources) Fall; Translations: [Unspecified fall, initial encounter] 08-23-2023 Episodic Esophageal disorders (20 sources) Gastro-esophageal reflux disease without esophagitis; Translations: [Gastroesophageal reflux disease] Onset: 05-28-2017 03-20-2019 Chronic Essential hypertension (20 sources) Hypertensive disorder; Translations: [Essential (primary) hypertension] Onset: 08-18-2021 08-18-2021 Chronic Genitourinary symptoms and ill-defined conditions (1 source) Microscopic hematuria; Translations: [Other microscopic hematuria] Episodic Headache; including migraine (16 sources) Headache; Translations: [Headache] 07-31-2021 Episodic Miscellaneous mental health disorders (1 source) Chronic insomnia; Translations: [Psychophysiologic insomnia] 04-12-2023 Chronic Mood disorders (20 sources) Depressive disorder; Translations: [Depression] Onset: 06-30-2016 04-05-2017 Chronic Comment on above: ON MED Mood disorders (5 sources) Major depressive disorder, single episode, unspecified; Translations: [Mood disorders] Onset: 01-27-2017 Multiple sclerosis (1 source) 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; Translations: [Multiple sclerosis] 04-12-2023 Chronic Neoplasms of unspecified nature or uncertain behavior (1 source) Thrombocytosis; Translations: [Thrombocytosis] Episodic Nonspecific chest pain (20 sources) Chest pain; Translations: [Chest pain, unspecified] Onset: 03-20-2019 03-20-2019 Episodic Nutritional deficiencies (20 sources) Vitamin D deficiency; Translations: [Vitamin D deficiency, unspecified] Onset: 12-17-2022 Chronic Other connective tissue disease (20 sources) Muscle pain; Translations: [Myalgia, unspecified site] Onset: 03-20-2019 03-20-2019 Episodic Other connective tissue disease (16 sources) Pain in upper limb; Translations: [Pain in arm, unspecified] 02-21-2021 Episodic Other connective tissue disease (2 sources) Cramp and spasm; Translations: [Cramp and spasm] Onset: 03-06-2022 Episodic Other female genital disorders (2 sources) Abnormal uterine and vaginal bleeding, unspecified; Translations: [Abnormal uterine and vaginal bleeding, unspecified] Onset: 09-01-2021 Chronic Other hematologic conditions (1 source) Erythrocytosis; Translations: [Secondary polycythemia] Episodic Other hematologic conditions (2 sources) H/O: blood disorder; Translations: [Personal history of diseases of the blood and blood-forming organs and certain disorders involving the immune mechanism] 03-06-2024 Episodic Other injuries and conditions due to external causes (16 sources) Avulsion of skin; Translations: [Other injury of unspecified body region, initial encounter] 09-11-2021 Episodic Other liver diseases (2 sources) Fatty (change of) liver, not elsewhere classified; Translations: [Fatty (change of) liver, not elsewhere classified] Onset: 06-07-2017 Chronic Other liver diseases (1 source) Alkaline phosphatase raised; Translations: [Abnormal levels of other serum enzymes] 01-02-2025 Episodic Other lower respiratory disease (5 sources) Pleuritic pain; Translations: [Pleurodynia] 09-03-2023 Episodic Other lower respiratory disease (1 source) Cough; Translations: [Cough] 03-24-2021 Episodic Other nervous system disorders (2 sources) Lesion of ulnar nerve, left upper limb; Translations: [Demyelinating disease of central nervous system, unspecified] Onset: 05-01-2017 Chronic Other nervous system disorders (16 sources) Ulnar neuropathy; Translations: [Lesion of ulnar nerve, left upper limb] Onset: 05-17-2017 03-20-2019 Chronic Other nervous system disorders (2 sources) Other chronic pain; Translations: [Chronic left shoulder pain] Onset: 08-10-2022 Chronic Other non-traumatic joint disorders (2 sources) Chronic pain of left upper limb; Translations: [Pain in left shoulder] 12-25-2024 Episodic Other non-traumatic joint disorders (1 source) Pain in left shoulder; Translations: [Chronic left shoulder pain] Onset: 12-25-2024 Episodic Other nutritional; endocrine; and metabolic disorders (4 sources) Obesity, unspecified; Translations: [Morbid (severe) obesity due to excess calories] Onset: 07-14-2017 Chronic Other nutritional; endocrine; and metabolic disorders (16 sources) Morbid obesity; Translations: [Morbid (severe) obesity due to excess calories] Onset: 01-27-2017 04-05-2017 Chronic Other nutritional; endocrine; and metabolic disorders (14 sources) Body mass index 40+ - severely obese; Translations: [Morbid (severe) obesity due to excess calories] 04-16-2022 Chronic Other nutritional; endocrine; and metabolic disorders (3 sources) Morbid (severe) obesity due to excess calories; Translations: [Morbid (severe) obesity due to excess calories] Onset: 04-10-2022 Chronic Other nutritional; endocrine; and metabolic disorders (20 sources) Severe obesity; Translations: [Morbid (severe) obesity due to excess calories] Onset: 03-24-2021 Chronic Other nutritional; endocrine; and metabolic disorders (13 sources) H/O: diabetes mellitus; Translations: [Personal history of other endocrine, nutritional and metabolic disease] 03-05-2022 Episodic Other upper respiratory disease (2 sources) Allergic rhinitis, unspecified; Translations: [Allergic rhinitis, unspecified] Onset: 08-25-2021 Chronic Other upper respiratory infections (16 sources) Acute sinusitis; Translations: [Acute sinusitis, unspecified] 01-18-2021 Episodic Residual codes; unclassified (20 sources) Obstructive sleep apnea syndrome; Translations: [Obstructive sleep apnea (adult) (pediatric)] Onset: 09-18-2011 04-05-2017 Chronic Residual codes; unclassified (1 source) Obstructive sleep apnea (adult) (pediatric); Translations: [HILDA (obstructive sleep apnea)] Onset: 04-12-2023 Chronic Screening and history of mental health and substance abuse codes (1 source) History of post-traumatic stress disorder; Translations: [Personal history of other mental and behavioral disorders] 04-12-2023 Episodic Spondylosis; intervertebral disc disorders; other back problems (20 sources) Lumbar facet joint pain; Translations: [Spondylosis without myelopathy or radiculopathy, lumbar region] Onset: 08-10-2022 Chronic Spondylosis; intervertebral disc disorders; other back problems (20 sources) Spasm of back muscles; Translations: [Muscle spasm of back] Onset: 08-10-2022 03-05-2022 Episodic Sprains and strains (3 sources) Lower back injury; Translations: [Strain of muscle, fascia and tendon of lower back, initial encounter] 08-23-2023 Episodic Substance-related disorders (20 sources) Nicotine dependence, unspecified, uncomplicated; Translations: [Nicotine dependence, cigarettes, uncomplicated] Onset: 07-21-2017 Chronic Unclassified (7 sources) Body mass index (BMI) 50-59.9 , adult; Translations: [Obstructive sleep apnea (adult) (pediatric)] Onset: 07-21-2017 Chronic Unclassified (1 source) Pain, unspecified; Translations: [Pain, unspecified] Onset: 04-27-2017 Unclassified (2 sources) Unknown / UNK(Unknown) Onset: 02-22-2017 Unclassified (1 source) Cough, unspecified; Translations: [Cough, unspecified] Onset: 08-20-2021 Unclassified (1 source) Chronic pain of left upper limb 12-25-2024 Unclassified (1 source) Chronic bilateral low back pain without sciatica; Translations: [Chronic bilateral low back pain without sciatica] Onset: 08-10-2022 Unclassified (1 source) Class 3 severe obesity due to excess calories without serious comorbidity with body mass index (BMI) of 50.0 to 59.9 in adult (HCC); Translations: [Class 3 severe obesity due to excess calories without serious comorbidity with body mass index (BMI) of 50.0 to 59.9 in adult (HCC)] Onset: 08-10-2022 Past or Other Problems Problem Classification Problem Date Documented Da te Episodic/Chronic Allergic reactions (6 sources) Allergy status to other drugs, medicaments and biological substances status; Translations: [Allergy status to unspecified drugs, medicaments and biological substances status] Onset: 07-21-2017 Episodic Biliary tract disease (6 sources) Calculus of gallbladder with chronic cholecystitis without obstruction; Translations: [Other cholelithiasis without obstruction] Onset: 06-07-2017 Episodic Cardiac dysrhythmias (2 sources) Tachycardia; Translations: [Tachycardia, unspecified] Onset: 03-06-2024 03-06-2024 Episodic Chronic obstructive pulmonary disease and bronchiectasis (2 sources) Bronchitis, not specified as acute or chronic; Translations: [Bronchitis, not specified as acute or chronic] Onset: 07-21-2017 Episodic Immunizations and screening for infectious disease (5 sources) Patient encounter status; Translations: [Encounter for immunization] Onset: 03-10-2023 Episodic Medical examination/evaluation (2 sources) Encounter for other preprocedural examination; Translations: [Encounter for other preprocedural examination] Onset: 07-14-2017 Episodic Other aftercare (2 sources) computer terminal operator (current) use of oral hypoglycemic drugs; Translations: [computer terminal operator (current) use of oral hypoglycemic drugs] Onset: 09-01-2021 Episodic Other aftercare (2 sources) Other halfway (current) drug therapy; Translations: [Other terminal operations manager (current) drug therapy] Onset: 09-01-2021 Episodic Other connective tissue disease (20 sources) Fibromyalgia; Translations: [Fibromyalgia] Onset: 06-30-2016 04-05-2017 Episodic Other female genital disorders (2 sources) Polyp of corpus uteri; Translations: [Polyp of corpus uteri] Onset: 09-01-2021 Episodic Other gastrointestinal disorders (15 sources) Heartburn; Translations: [Heartburn] Onset: 08-18-2021 08-18-2021 Episodic Other non-traumatic joint disorders (1 source) Pain in unspecified joint; Translations: [Pain in unspecified joint] Onset: 04-06-2017 Episodic Residual codes; unclassified (1 source) Insomnia; Translations: [Insomnia, unspecified] Episodic Unclassified (8 sources) Family history of other endocrine, nutritional and metabolic diseases; Translations: [Family history of diabetes mellitus] Onset: 07-21-2017 Episodic Unclassified (1 source) M79.7 Onset: 02-22-2017 Unclassified (1 source) Cough, unspecified; Translations: [Cough, unspecified] Onset: 08-20-2021 NEGATED: Highlighted row has been ruled out!Residual codes; unclassified (2 sources) Disease Episodic Results Test Name Value Interpretation Reference Range [facility] 25-hydroxyvitamin D3 [Mass/Vol] 6.6 ng/mL Low 31.0-80.0 [facility] Comment on above: Order Comment: Speci men Type: BLOOD SPECIMEN Ordering Facility: [facility] Address: [address] [place] [address] [place] [address] Result Comment: Clas sification of 25 OH Vitamin D status: Deficiency/Insufficiency: < or = 30 ng/ml. Sufficiency/Optimal Levels: 31-80 ng/mL Toxicity: > 100 ng/mL. Test performed by chemiluminescent immunoassay. Performed By: #### 1 [id number] #### [facility] CLIA [id number] [address] [place] [address] [place] ALBUMIN/CREATININE RATIO, UR INEon 12-25-2024 Albumin DL <= 20 mg/L (U) [Mass/Vol] 17.3 mg/L Normal [facility] Comment on above: Order Comment: Speci men Type: URINE SPECIMEN Ordering Facility: [facility] Address: [address] [place] [address] Performed By: #### U ACR #### [facility] CLIA [id number] [address] [place] [address] [place] Albumin/Creatinine (U) [Mass ratio] 24 mg/g Normal <30 [facility] Comment on above: Order Comment: Speci men Type: URINE SPECIMEN Ordering Facility: [facility] Address: [address] [place] [address] Result Comment: Adul t Male and Female Nephrotic Criteria: <30 mg/g is considered normal to mildly increased 30-300 mg/g is considered moderately increased >300 mg/g is considered severely increased KDIGO. (2013). KDIGO 2012 Clinical Practice Guideline for the Evaluation and Management of Chronic Kidney Disease. Official Journal of the International Society of Nephrology, 3(1), 1-150. Performed By: #### U ACR #### [facility] CLIA [id number] [address] [place] [address] [place] Creatinine (U) [Mass/Vol] 71.9 mg/dL Normal 20.0-300.0 [facility] Comment on above: Order Comment: Speci men Type: URINE SPECIMEN Ordering Facility: [facility] Address: [address] [place] [address] Performed By: #### U ACR #### [facility] CLIA [id number] [address] [place] [address] [place] CBC W Auto Differential pane l (Bld)on 12-25-2024 Basophils (Bld) [#/Vol] 0.19 10*3/uL High <0.11 [facility] Comment on above: Order Comment: Speci men Type: BLOOD SPECIMEN Ordering Facility: [facility] Address: [address] [place] [address] Performed By: #### 5 [id number] #### [facility] CLIA [id number] [address] [place] [address] [place] Basophils/100 WBC (Bld) 1.0 % Normal [facility] Comment on above: Order Comment: Speci men Type: BLOOD SPECIMEN Ordering Facility: [facility] Address: [address] [place] [address] Performed By: #### 5 [id number] #### [facility] CLIA [id number] [address] [place] [address] [place] Differential cell count method Nom (Bld) Manual Normal [facility] [facility] Comment on above: Order Comment: Speci men Type: BLOOD SPECIMEN [facility] Address: [address] [place] [address] Performed By: #### 5 7021-8 #### [facility] CLIA [id number] [address] [place] [address] [place] Eosinophils (Bld) [#/Vol] 0.19 10*3/uL Normal <0.46 [facility] Comment on above: Order Comment: Speci men Type: BLOOD SPECIMEN [facility]ing Facility: [facility] Address: [address] [place] [address] Performed By: #### 5 7021-8 #### [facility] CLIA [id number] [address] [place] [address] [place] Eosinophils/100 WBC (Bld) 1.0 % Normal [facility] Comment on above: Order Comment: Speci men Type: BLOOD SPECIMEN [facility]: [facility] Address: [address] [place] [address] Performed By: #### 5 7021-8 #### [facility] CLIA [id number] [address] [place] [address] [place] Erythrocyte distribution width (RBC) [Ratio] 12.8 % Normal 11.5-15.0 [facility] Comment on above: Order Comment: Speci men Type: BLOOD SPECIMEN [facility]: [facility] Address: [address] [place] [address] Performed By: #### 5 7021-8 #### [facility] CLIA [id number] [address] [place] [address] [place] Hematocrit (Bld) [Volume fraction] 49.3 % High 36.0-46.0 [facility] Comment on above: Order Comment: Speci men Type: BLOOD SPECIMEN [facility] Address: [address] [place] [address] Performed By: #### 5 7021-8 #### [facility] CLIA [id number] [address] [place] [address] [place] Hemoglobin (Bld) [Mass/Vol] 16.2 g/dL High 11.5-15.5 [facility] Comment on above: Order Comment: Speci men Type: BLOOD SPECIMEN [facility] Address: [address] [place] [address] Performed By: #### 5 7021-8 #### [facility] CLIA [id number] [address] [place] [address] [place] Lymphocytes (Bld) [#/Vol] 7.32 10*3/uL High 1.00-4.00 [facility] Comment on above: Order Comment: Speci men Type: BLOOD SPECIMEN [facility] Address: [address] [place] [address] Performed By: #### 5 7021-8 #### [facility] CLIA [id number] [address] [place] [address] [place] Lymphocytes/100 WBC (Bld) 39.0 % Normal [facility] Comment on above: Order Comment: Speci men Type: BLOOD SPECIMEN [facility] Address: [address] [place] [address] Performed By: #### 5 7021-8 #### [facility] CLIA [id number] [address] [place] [address] [place] MCH (RBC) [Entitic mass] 29.9 pg Normal 26.0-34.0 [facility] Comment on above: Order Comment: Speci men Type: BLOOD SPECIMEN [facility] Address: [address] [place] [address] Performed By: #### 5 7021-8 #### [facility] CLIA [id number] [address] [place] [address] [place] MCHC (RBC) [Mass/Vol] 32.9 g/dL Normal 30.5-36.0 [facility] Comment on above: Order Comment: Speci men Type: BLOOD SPECIMEN [facility] Address: [address] [place] [address] Performed By: #### 5 7021-8 #### [facility] CLIA [id number] [address] [place] [address] [place] MCV (RBC) [Entitic vol] 91.0 fL Normal 80.0-100.0 [facility] Comment on above: Order Comment: Speci men Type: BLOOD SPECIMEN [facility] Address: [address] [place] [address] Performed By: #### 5 7021-8 #### [facility] CLIA [id number] [address] [id number] [address] [place] Monocytes (Bld) [#/Vol] 1.50 10*3/uL High <0.87 [facility] Comment on above: Order Comment: Speci men Type: BLOOD SPECIMEN [facility] Address: [address] [place] [address] Performed By: #### 5 7021-8 #### [facility] CLIA [id number] [address] [place] [address] [place] Monocytes/100 WBC (Bld) 8.0 % Normal [facility] Comment on above: Order Comment: Speci men Type: BLOOD SPECIMEN [facility] Address: [address] [place] [address] Performed By: #### 5 7021-8 #### [facility] CLIA [id number] [address] [place] [address] [place] Neutrophils (Bld) [#/Vol] 9.58 10*3/uL High 1.45-7.50 [facility] Comment on above: Order Comment: Speci men Type: BLOOD SPECIMEN [facility] Address: [address] [place] [address] Performed By: #### 5 7021-8 #### [facility] CLIA [id number] [address] [place] [address] [place] Neutrophils/100 WBC (Bld) 51.0 % Normal [facility] Comment on above: Order Comment: Speci men Type: BLOOD SPECIMEN [facility] Address: [address] [place] [address] Performed By: #### 5 7021-8 #### [facility] CLIA [id number] [address] [place] [address] [place] Nucleated RBC (Bld) [#/Vol] 10*3/uL Normal <0.01 [facility] Comment on above: Order Comment: Speci men Type: BLOOD SPECIMEN [facility] Address: [address] [place] [address] Performed By: #### 5 7021-8 #### [facility] CLIA [id number] [address] [place] [address] [place] Nucleated RBC/100 WBC (Bld) [Ratio] 0.0 /100 WBC Normal [facility] Comment on above: Order Comment: Speci men Type: BLOOD SPECIMEN [facility] Address: [address] [place] [address] Performed By: #### 5 7021-8 #### [facility] CLIA [id number] [address] [place] [address] [place] Platelet mean volume (Bld) [Entitic vol] 9.8 fL Normal 9.0-12.7 [facility] Comment on above: Order Comment: Speci men Type: BLOOD SPECIMEN [facility] Address: [address] [place] [address] Performed By: #### 5 7021-8 #### [facility] CLIA [id number] [address] [place] [address] [place] Platelets (Bld) [#/Vol] 467 10*3/uL High 150-400 [facility] Comment on above: Order Comment: Speci men Type: BLOOD SPECIMEN [facility] Address: [address] [place] [address] Performed By: #### 5 7021-8 #### [facility] CLIA [id number] [address] [place] [address] [place] Platelets Estimate (Bld) [#/Vol] Increased Normal [facility] Comment on above: Order Comment: Speci men Type: BLOOD SPECIMEN [facility] Address: [address] [place] [address] Performed By: #### 5 7021-8 #### [facility] CLIA [id number] [address] [place], [place] [id number] [place] Polychromasia LM Ql (Bld) Slight Normal [facility] Comment on above: Order Comment: Speci men Type: BLOOD SPECIMEN [facility] Address: [address] [place] [address] Performed By: #### 5 7021-8 #### [facility] CLIA [id number] [address] [place] [address] [place] RBC (Bld) [#/Vol] 5.42 10*6/uL High 3.90-5.[address] [facility] Comment on above: Order Comment: Speci men Type: BLOOD SPECIMEN [facility] Address: [address] [place] [address] Performed By: #### 5 7021-8 #### [facility] CLIA [id number] [address] [place] [address] [place] RED CELL MORPH Reviewed: unremarkable Normal [facility] Comment on above: Order Comment: Speci men Type: BLOOD SPECIMEN [facility] Address: [address] [place] [address] Performed By: #### 5 7021-8 #### [facility] CLIA [id number] [address] [place] [address] [place] WBC (Bld) [#/Vol] 18.78 10*3/uL High 3.70-11.00 [facility] Comment on above: Order Comment: Speci men Type: BLOOD SPECIMEN [facility] Address: [address] [place] [address] Performed By: #### 5 7021-8 #### [facility] CLIA [id number] [address] [place] [address] [place] CNOVon 12-25-2024 CNOV Office Visit (INTMWS ) KARISHMA PICKARD ([id number]) 1985 F CHT Date Time Provider Department 12/25/24 8:40 AM GINNY GOMEZ INTMWS During your visit today, we recorded the following information about you: Pulse Respiration Blood pressure Weight 108/minute 16/minute 132/84 144.8 kg Height Last Period 1.635 m 11/26/24 Ginny Gomez, [employer] 12/25/2024 9:16 AM Signed CC: Patient presents with: Physical Arm Pain: Left x 4 months- post fall HPI Recording using [employer] software for draft documentation of the visit was discussed with the patient/authorized product sales representative; all questions welcomed and answered. Patient/authorized product sales representative agreed to proceed Karishma Pickard is a 39-year-old female with a history of DM, HTN, anxiety, depression, and HILDA, presenting for follow-up and evaluation of left arm pain. Left Arm Pain: - Pain in the left upper arm, x4 months. - Onset after a fall on a high carpet floor in her apartment; leg gave out, causing her to fall. - Pain described as a pulling sensation, exacerbated by lifting the arm or reaching for objects. - Difficulty lifting the arm above the shoulder and performing tasks like washing hair. - Minimal swelling noted initially; no bruising observed. - Taking muscle relaxers and hydrocodone prescribed by pain management, with no relief. - Suspects possible muscle tear due to prolonged pain. Diabetes Mellitus: - Managed with Farxiga and glipizide; no longer taking Ozempic. - Monitors blood glucose levels twice daily (morning and before bed); readings range from 115-120 mg/dL. - Occasional hypoglycemic episodes (<70 mg/dL) approximately once every two months. - Insurance no longer covers current glucose meter brand; needs a new brand. - No issues with foot pain, numbness, tingling, or sores; regularly checks feet. - Eye exam scheduled. Hypertension: - Previously on metoprolol, which improved blood pressure and heart rate; has not filled prescription since August. - Home blood pressure readings typically 120-118/80 mmHg; heart rate usually in the 80s. - No side effects reported from metoprolol. Anxiety and Depression: - Managed by psychiatry; taking Abilify and recently added hydroxyzine 50 mg TID PRN. - Experienced really bad winter seasonal depression with medication non-adherence; currently stabilized. - Psychiatrist recommended ketamine treatment or shock therapy, but Karishma prefers to continue medication. Obstructive Sleep Apnea: - Prescribed CPAP but does not use it due to feeling suffocated. Chronic Pain: - Undergoing pain management for back and neck pain. - Treatments include ablations in the lower back and a recent epidural shot in the neck; nerve block scheduled for January. - Reports significant relief from lower back ablations; neck treatment is new. Lifestyle: - Recently gained 10 lbs over the past year; current weight is 319 lbs. - Smokes approximately half a pack of cigarettes per day; denies alcohol, drug use, e-cigarette, or vaping. - Upcoming gynecological appointment scheduled. Review of Systems Constitutional: Negative for chills, diaphoresis, fatigue, fever and unexpected weight change. Respiratory: Negative for cough, shortness of breath and wheezing. Cardiovascular: Negative for chest pain, palpitations and leg swelling. Neurological: Negative for dizziness, syncope, weakness, light-headedness, numbness and headaches. PAST MEDICAL HISTORY Diagnosis Date Cholelithiases Chronic bilateral low back pain without sciatica 08/10/2022 Chronic pain syndrome Class 3 severe obesity due to excess calories without serious comorbidity with body mass index (BMI) of 50.0 to 59.9 in adult ([facility]) 03/24/2021 Controlled type 2 diabetes mellitus without complication, without long-term current use of insulin ([facility]) 08/10/2022 DDD (degenerative disc disease), lumbar 08/10/2022 Depression 01/27/2017 Fibromyalgia 01/27/2017 WATSON (generalized anxiety disorder) 08/10/2022 GERD (gastroesophageal reflux disease) Leukocytosis 12/08/2022 Morbid obesity ([facility]) Obstructive sleep apnea Not on CPAP HILDA (obstructive sleep apnea) 09/18/2011 PCOS (polycystic ovarian syndrome) Primary hypertension 03/06/2024 PTSD (post-traumatic stress disorder) 08/10/2022 Tobacco use disorder 08/10/2022 Ulnar 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 Brooks. [facility] DANDC, DIAG AND/OR THERAPEUTIC NEUROPLASTY AND/TRANSPOSITION ULNAR NERVE ELBOW Left 06/02/2017 Left Ulnar nerve decompression NRV DESTR RFA, CHEM OTHER Left 06/2022 NRV DESTR RFA, CHEM OTHER Bilateral w/ Dr. Guerrero TONSILLECTOMY HX ALLERGIES [place] (more content not included)... Normal [facility] Comprehensive metabolic 2000 panelon 12-25-2024 Albumin [Mass/Vol] 4.2 g/dL Normal 3.9-4.9 [facility] Comment on above: Order Comment: Speci men Type: BLOOD SPECIMEN [facility] Address: [address] [place] [address] Performed By: #### L IPNF, 31564-4 #### [facility] CLIA [id number] [address] [place] [address] [place] ALP [Catalytic activity/Vol] 134 U/L High 34-123 [facility] Comment on above: Order Comment: Speci men Type: BLOOD SPECIMEN [facility] Address: [address] [place] [address] Performed By: #### L IPNF, 55718-1 #### [facility] CLIA [id number] [address] [place] [address] [place] ALT [Catalytic activity/Vol] 21 U/L Normal 7-38 [facility] Comment on above: Order Comment: Speci men Type: BLOOD SPECIMEN [facility] Address: [address] [place] [address] Performed By: #### L IPNF, 21865-6 #### [facility] CLIA [id number] [address] [place] [address] [place] Anion gap [Moles/Vol] 15 mmol/L Normal 8-15 [facility] Comment on above: Order Comment: Speci men Type: BLOOD SPECIMEN [facility] Address: [address] [place] [address] Performed By: #### L IPNF, 74608-3 #### [facility] CLIA [id number] [address] [place] [address] [place] AST [Catalytic activity/Vol] 18 U/L Normal 13-35 [facility] Comment on above: Order Comment: Speci men Type: BLOOD SPECIMEN [facility] Address: [address] [place] [address] Performed By: #### L IPNF, 90467-0 #### [facility] CLIA [id number] [address] [place] [address] [place] Bilirubin [Mass/Vol] 0.3 mg/dL Normal 0.2-1.3 [facility] Comment on above: Order Comment: Speci men Type: BLOOD SPECIMEN [facility] Address: [address] [place] [address] Performed By: #### L IPNF, 87155-9 #### [facility] CLIA [id number] [address] [place] [address] [place] Calcium [Mass/Vol] 9.5 mg/dL Normal 8.5-10.2 [facility] Comment on above: Order Comment: Speci men Type: BLOOD SPECIMEN [facility] Address: [address] [place] [address] Performed By: #### L IPNF, 03261-7 #### [facility] CLIA [id number] [address] [place] [address] [place] Chloride [Moles/Vol] 103 mmol/L Normal 98-107 [facility] Comment on above: Order Comment: Speci men Type: BLOOD SPECIMEN [facility] Address: [address] [place] [address] Performed By: #### L IPNF, 14768-8 #### [facility] CLIA [id number] [address] [place] [address] [place] CO2 [Moles/Vol] 19 mmol/L Low 22-30 [facility] Comment on above: Order Comment: Maryse patel Type: BLOOD SPECIMEN [facility] Address: [address] [place] [address] Performed By: #### L IPLINDY, 53634-9 #### [facility] CLIA [id number] [address] [place] [address] [place] Creatinine [Mass/Vol] 0.48 mg/dL Low 0.58-0.96 [facility] Comment on above: Order Comment: Lanai men Type: BLOOD SPECIMEN [facility] Address: [address] [place] [address] Performed By: #### L IPLINDY, 27666-1 #### [facility] CLIA [id number] [address] [place] [address] [place] Creatinine and Glomerular filtration rate.predicted panel (S/P/Bld) 125 mL/min/1.73m??? Normal >=60 [facility] Comment on above: Order Comment: Maryse patel Type: BLOOD SPECIMEN [facility] Address: [address] [place] [address] Result Comment: Deena mated Glomerular Filtration Rate (eGFR) is calculated using the 2020 CKD-EPI creatinine equation. This equation utilizes serum creatinine, sex, and age as parameters. The creatinine assay has traceable calibration to isotope dilution-mass spectrometry. Refer to KDIGO guidelines for clinical interpretation. In patients with unstable renal function, e.g. those with acute kidney injury, the eGFR may not accurately reflect actual GFR. Performed By: #### L IPNF, 72529-4 #### [facility] CLIA [id number] [address] [place] [address] [place] Glucose [Mass/Vol] 161 mg/dL High 74-99 [facility] Comment on above: Order Comment: Maryse patel Type: BLOOD SPECIMEN [facility] Address: [address] [place] [address] Result Comment: The [place] Diabetes Association (ADA) provides guidance for cutoff values for fasting glucose and random glucose. The ADA defines fasting as no caloric intake for at least 8 hours. Fasting plasma glucose results between 100 to 125 mg/dL indicate increased risk for diabetes (prediabetes). Fasting plasma glucose results greater than or equal to 126 mg/dL meet the criteria for diagnosis of diabetes. In the absence of unequivocal hyperglycemia, results should be confirmed by repeat testing. In a patient with classic symptoms of hyperglycemia or hyperglycemic crisis, random plasma glucose results greater than or equal to 200 mg/dL meet the criteria for diagnosis of diabetes. Reference: Standards of Medical Care in Diabetes 2016, [place] Diabetes Association. Diabetes Care. 2016.39(Suppl 1). Performed By: #### L ARLENE, 63116-8 #### [facility] CLIA [id number] [address] [place] [address] [place] Potassium [Moles/Vol] 4.1 mmol/L Normal 3.7-5.1 [facility] Comment on above: Order Comment: Speci men Type: BLOOD SPECIMEN [facility] Address: [address] [place] [address] Performed By: #### L ARLENE, 39414-5 #### [facility] CLIA [id number] [address] [place] [address] [place] Protein [Mass/Vol] 7.3 g/dL Normal 6.3-8.0 [facility] Comment on above: Order Comment: Speci men Type: BLOOD SPECIMEN [facility] Address: [address] [place] [address] Performed By: #### L IPLINDY, 63952-8 #### [facility] CLIA [id number] [address] [place] [address] [place] Sodium [Moles/Vol] 137 mmol/L Normal 136-144 [facility] Comment on above: Order Comment: Speci men Type: BLOOD SPECIMEN [facility] Address: [address] [place] [address] Performed By: #### L IPNF, 66199-1 #### [facility] CLIA [id number] [address] [place] [address] [place] Urea nitrogen [Mass/Vol] 8 mg/dL Normal 7-21 [facility] Comment on above: Order Comment: Speci men Type: BLOOD SPECIMEN [facility] Address: [address] [place] [address] Performed By: #### L IPNF, 90428-4 #### [facility] CLIA [id number] [address] [place] [address] [place] HbA1c (Bld)on 12-25-2024 Average glucose Estimated from glycated hemoglobin (Bld) [Mass/Vol] 171 mg/dL Normal [facility] Comment on above: Order Comment: Maryse [facility] Type: BLOOD SPECIMEN [facility] Address: [address] [place] [address] Result Comment: eAG: (Estimated average glucose) is a calculated value from HgbA1c and is product sales representative of the average blood glucose level in the last 2-3 month period. Performed By: #### 5 5454-3 #### [facility] CLIA [id number] [address] [place] [address] [place] HbA1c (Bld) [Mass fraction] 7.6 % High 4.3-5.6 [facility] Comment on above: Order Comment: Maryse men Type: BLOOD SPECIMEN [facility] Address: [address] [place] [address] Result Comment: [place] Diabetes Association guidelines indicate that patients with HgbA1c in the range 5.7-6.4% are at increased risk for development of diabetes, and intervention by lifestyle modification may be beneficial. HgbA1c greater or equal to 6.5% is considered diagnostic of diabetes. Performed By: #### 5 5454-3 #### [facility] CLIA [id number] [address] [place] [address] [place] [facility] LIPID PANEL, NONFASTINGon Cholesterol [Mass/Vol] 129 mg/dL Normal <200 [facility] Comment on above: Order Comment: Maryse patel Type: BLOOD SPECIMEN [facility] Address: [address] [place] [address] Result Comment: <200 mg/dL, Desirable 200-239 mg/dL, Borderline high >239 mg/dL, High Performed By: #### L ARLENE, 61107-6 #### [facility] CLIA [id number] [address] [place] [address] HDL CHOLESTEROL, NF 35 mg/dL Low >[address] [facility] Comment on above: Order Comment: Maryse patel Type: BLOOD SPECIMEN [facility] [facility] Address: [address] [place] [address] Result Comment: 40-5 9 mg/dL, Acceptable >59 mg/dL, High: Negative risk factor for coronary heart disease <40 mg/dL, Low: Positive risk factor for coronary heart disease Performed By: #### L ARLENE, 83342-2 #### [facility] CLIA [id number] [address] [place] [address] [place] LDL CHOLESTEROL CALCULATED, NF 66 mg/dL Normal <100 [facility] Comment on above: Order Comment: Speci jorge Type: BLOOD SPECIMEN [facility]ing Facility[facility] Address: [address] [place] [address] Result Comment: <100 mg/dL, Optimal 100-129 mg/dL, Near optimal/above optimal 130-159 mg/dL, Borderline high 160-189 mg/dL, High >189 mg/dL, Very high Secondary prevention optimal LDL Cholesterol levels are recommended to be <70 mg/dL LDL cholesterol is calculated using the Ambriz-NIH equation. Performed By: #### L IPLINDY, 11805-8 #### [facility] CLIA [id number] [address] [place] [address] OF [place] LDL/HDL RATIO, NF 1.89 mg/dL Normal <2.54 [facility] Comment on above: Order Comment: Maryse patel Type: BLOOD SPECIMEN Ordering Facility: [facility] Address: [address] [place] [address] Result Comment: Temo holbrook: 1. National Cholesterol Education Program ATP III Guideline At-A-Glance Quick Desk Reference: National Heart, Lung, and Blood Bypro. National Institutes of Health. 2001: NIH Publication No. 01-3305. 2. An International Atherosclerosis Society position paper: global recommendations for the management of dyslipidemia: executive summary, Atherosclerosis. 2014: 232(2):410-413. Performed By: #### L IPNF, 37697-3 #### [facility] CLIA [id number] [address] [place] [address] [place] NON HDL CHOL, NF 94 mg/dL Normal <130 [facility] Comment on above: Order Comment: Maryse patel Type: BLOOD SPECIMEN [facility] Address: [address] [place] [address] Result Comment: <130 mg/dL, Optimal 130-159 mg/dL, Near optimal/above optimal 160-189 mg/dL, Borderline high 190-219 mg/dL, High >219 mg/dL, Very high Secondary prevention optimal non HDL Cholesterol levels are recommended to be <100 mg/dL Performed By: #### L IPNF, 76964-8 #### [facility] CLIA [id number] [address] [place] [address] [place] T CHOL/HDL RATIO NF 3.69 mg/dL Normal <5.[address] [facility] Comment on above: Order Comment: Maryse patel Type: BLOOD SPECIMEN [facility] Address: [address] [place] [address] Performed By: #### L IPNF, 29513-1 #### [facility] CLIA [id number] [address] [place] [address] [place] TRIGLYCERIDES, NF 165 mg/dL High <150 [facility] Comment on above: Order Comment: Speci men Type: BLOOD SPECIMEN [facility] Address: [address] [place] [address] Result Comment: <150 mg/dL, Normal 150-199 mg/dL, Borderline high 200-499 mg/dL, High >499 mg/dL, Very high Performed By: #### L IPNF, 30612-4 #### [facility] CLIA [id number] [address] [place] [address] [place] VLDL CHOLESTEROL, NF 24 mg/dL Normal <30 [facility] Comment on above: Order Comment: Maryse jorge Type: BLOOD SPECIMEN [facility] Address: [address] [place] [address] Performed By: #### L IPNF, 70465-0 #### [facility] CLIA [id number] [address] [place] [address] OF [facility] XR SHLDR >/=3V AP/FRANCIS AP/OTH R LTon 12-25-2024 XR SHLDR >/=3V AP/FRANCIS AP/OTHR LT * * *Final Report* * * DATE OF EXAM: Dec 25 2024 9:43AM WOX [id number] - XR SHLDR >/=3V AP/FRANCIS AP/OTHR LT / PROCEDURE REASON: multiple diagnoses * * * * Physician Interpretation * * * * SHOULDER RADIOGRAPHS - LEFT HISTORY: Chronic left shoulder pain TECHNOLOGIST PROVIDED HISTORY (if applicable): Pt. state Lt anterior shoulder pain for 4 months after falling. TECHNIQUE: XR SHLDR >/=3V AP/FRANCIS AP/OTHR LT COMPARISON: None available RESULT: Bone mineralization appears normal. Left shoulder: The glenohumeral joint appears normally aligned without degenerative changes. The acromioclavicular joint appears normal. Soft tissues appear within normal limits. IMPRESSION: 1. No acute radiographic abnormality of the left shoulder Pbx Installer[facility] Transcribe Date/Time: Dec 31 2024 8:36A Dictated by : KASSI SEGOVIA MD This examination was interpreted and the report reviewed and electronically signed by: KASSI SEGOVIA MD on Dec 31 2024 8:37AM EST [id number] Normal [facility] Bedside Glucoseon 11-13-2024 FINGERSTICK GLU 168 mg/dL High 74-106 [facility] Comment on above: Result Comment: ALEXYS GONZALEZ OF PATIENT CARE PER NURSING PROTOCOL Performed By: #### L 501.080 ####[facility] [address] [place], [place], [address] Cerv Spine 2 or 3 Viewson Cerv Spine 2 or 3 Views [facility] Imaging Services [address] [place] [address] Cerv Spine 2 or 3 Views MR#: [id number] Acct: [id number] Name: NEERAJKARISHMA THIBODEAUXAN Rep #: [id number] : 1985 F 39 From: Yimi Marina MD PCP: Dr. Denis Garcia MD Status: [facility] Study: Cerv Spine 2 or 3 Views Date of Exam: 11/13/24 Exam# [id number] Ordering Dr: Cas Leavitt MD PROCEDURE: Fluoro for procedure REASON FOR EXAM: BLOCK, CERVICAL EPIDURAL TECHNIQUE: 2 images, 11.5 seconds, 5.80 mGy. COMPARISON: None FINDINGS: Fluoro was provided. RAD/Cerv Spine 2 or 3 Views IMPRESSION: Fluoro was provided. Reading Location: [facility] CC: Dr. Cas Leavitt MD; Dr. Denis Garcia MD Pbx Installer: Signed Normal [facility] deOrdered By: Cas Leavitt on 11-13-2024 Glucose [Mass/Vol] 168 mg/dL High 74-106 [facility] Comment on above: MANAGEMENT OF PATIEN T CARE PER NURSING PROTOCOL Operative Reporton Operative Report [facility] Medical Records Department [address] [place] [address] Operative Report 11/13/24 0928 MR#: [id number] Acct: [id number] Name: NEERAJKARISHMAMARIO BARTON Rep #: [id number] : 1985 39 From: Cas Leavitt MD PCP: Dr. Denis Garcia MD Status:[facility] Location: [place] [address] Operative Report (Standard) Operative Information Date of Procedure: 11/13/24 Pre-Operative Diagnosis: 0 Post-Operative Diagnosis: 0 Surgery/Procedure Performed: 0 size tester: No Type of Anesthesia: Local RN Documented Start/Stop Times: Operation Date: 11/13/24 08:55 Case Time Into Pre-Op 11/13/24 08:31 Out of Pre-Op 11/13/24 09:02 Into Room 11/13/24 09:12 Procedure Start 11/13/24 09:20 Procedure End 11/13/24 09:24 Anesthesia End 11/13/24 09:27 Out of Room 11/13/24 09:27 Procedure Start Time: 09:30 Procedure Stop Time: 09:30 Select all DRAINS/GRAFTS/IMPLANTS that apply: None Estimated Blood Loss: 0 Specimen collected: No Description of surgery: PREOPERATIVE DIAGNOSES: Cervical radiculopathy, cervical degenerative disc disease, cervical spinal stenosis POSTOPERATIVE DIAGNOSES:Cervical radiculopathy, cervical degenerative disc disease, cervical spinal stenosis PROCEDURE PERFORMED: Cervical epidural steroid injection, interlaminar at C7-T1 under fluoroscopic guidance. ANESTHESIA: Local. BLOOD LOSS: Minimal. COMPLICATIONS: None. DESCRIPTION OF PROCEDURE: History and physical of today was reviewed. Risks and benefits of the procedure were explained. The patient understood and agreed to proceed. Informed consent was obtained. IV inserted per routine protocol. The patient was taken to the operating room and placed in the prone position with a pillow positioned underneath the chest. The neck area was prepped and draped in a sterile fashion using iodine x3. Under fluoroscopy guidance on an AP view, the C7-T1 interlaminar space was identified. The skin and subcutaneous tissue was anesthetized with approximately 3 mL of 1% lidocaine using a 25-gauge regular needle. Under direct visualization on fluoroscopy, on AP view, using a 20-gauge 2-1/2-inch Tuohy needle, the needle was advanced via the skin. The tip of the needle was maneuvered and directed towards the interlaminar space at C7-T1. Loss of resistance technique was carried to air. Loss of resistance technique was encountered. Once encountered, after negative aspiration for blood and CSF, a total of 1 mL of contrast was injected to confirm correct placement of the needle as well as cephalocaudal spread of the contrast. Confirmation was obtained on AP as well as lateral view. After repeated negative aspiration and confirmation, a total of 3 mL of preservative-free normal saline and 80 mg of Depo-Medrol was injected easily. The needle was then removed intact. The patient experienced no sign or symptoms of intrathecal or intravascular injection. The patient experienced no paresthesia. The procedure was completed without any apparent difficulty or any complications. The patient appeared to tolerate it well. ASSESSMENT AND PLAN: This is a 39-year-old female with cervical radiculopathy, cervical degenerative disc disease, cervical spinal stenosis, status post cervical epidural steroid injection interlaminar at C7-T1 under fluoroscopic guidance, patient will continue her current medications, patient will follow-up in approximately 2 weeks for reevaluation. Surgical Findings: 0 Complications Complications: No Admit VTE Documentation VTE Present on Admission: No VTE Mechan Device Prophylaxis: None VTE Pharm Prophylaxis ordered?: No 11/13/24 0930 Cosigner Signature (if applicable): CC: Dr. Cas Leavitt MD; Dr. Denis Garcia MD Signed [facility] ,Urineon 11-13-2024 Beta HCG ( test) Ql (U) [facility] Comment on above: Result Comment: Canc elled via OM: no anesthesia Performed By: #### L 400.7600 ####[facility] [id number] [place], [place], [address] INTERNAL QC OK? Normal [facility] Comment on above: Result Comment: Canc elled via OM: no anesthesia Performed By: #### L 400.7600 ####[facility] [address] [place], [place], [address] RECORD KIT LOT# Normal [facility] Comment on above: Result Comment: Canc elled via OM: no anesthesia Performed By: #### L 400.7600 ####[facility] [address] [place], [place], [address] Cerv Spine 4 or 5 Viewson Cerv Spine 4 or 5 Views [facility] Imaging Services [address] [place] [address] Cerv Spine 4 or 5 Views MR#: [id number] Acct: [id number] Name: KARISHMA PICKARD Rep #: [id number] : 1985 F 39 From: Getachew Potts MD PCP: Dr. Denis Garcia MD Status: REG [facility] Study: Cerv Spine 4 or 5 Views Date of Exam: 10/09/24 Exam# [id number] Ordering Dr: Irma Yu PROCEDURE: CERV SPINE 4 OR 5 VIEWS 10/09/2024 REASON FOR EXAM: CERVICAL SPINE PAIN TECHNIQUE: AP, lateral, bilateral oblique, and open-mouth odontoid views of the cervical spine were obtained. COMPARISON: None. FINDINGS: Fracture/dislocation: None visible. Vertebral body heights: Preserved. Alignment: Straightening of the normal cervical lordosis which may be positional or related to pain/muscular spasm Disc spaces: Relatively preserved. Facets: Grossly unremarkable. Soft tissues: Unremarkable. Foreign bodies: None visible. Bone mineralization: Grossly unremarkable. Other: None. RAD/Cerv Spine 4 or 5 Views IMPRESSION: 1. No visible acute displaced fracture. Straightening of the normal cervical lordosis which may be positional or related to pain/muscular spasm. If concern persists, consider CT/MRI. 2. No significant radiographically evident cervical spondylosis. Reading Location: [id number] CC: Irma Yu; Dr. Denis Garcia MD Pbx Installer: Signed Normal [facility] Bedside Glucoseon 08-14-2024 FINGERSTICK GLU 207 mg/dL High 74-106 [facility] Comment on above: Result Comment: ALEXYS GEMENT OF PATIENT CARE PER NURSING PROTOCOL Performed By: #### L 501.080 ####[facility] [address] [place], [address] [facility] deOrdered By: Cas Leavitt on 08-14-2024 Bedside Glucose (Misc Panel) 207 mg/dL High 74-106 [facility] Comment on above: MANAGEMENT OF PATIEN T CARE PER NURSING PROTOCOL Glucose [Mass/Vol] 207 mg/dL High 74-106 [facility] Comment on above: MANAGEMENT OF PATIEN T CARE PER NURSING PROTOCOL L/S Spine Min 4 Viewson 07-29 L/S Spine Min 4 Views [facility] Imaging Services [address] [place] [address] L/S Spine Min 4 Views MR#: [id number] Acct: [id number] Name: KARISHMA PICKARD Rep #: [id number] : 1985 F 39 From: Getachew Casanova MD PCP: Dr. Denis Garcia MD Status: [facility] Study: L/S Spine Min 4 Views Date of Exam: 08/14/24 Exam# [id number] Ordering Dr: Cas Leavitt MD Fluoroscopic guidance was used intraoperatively. Please refer to the operative note for further details. 5 images. Total fluoroscopy time 13.6 seconds. Total radiation dose 12.02 mGy. Reading Location: [facility] CC: Dr. Cas Leavitt MD; Dr. Denis Garcia MD Pbx Installer: Signed [facility] MR/POSTOP.[facility] 08-14-2024 MR/POSTOP.[facility] Medical Records Department [address] [place] [address] Anesthesia Postop Eval I 08/14/24 0830 MR#: [id number] Acct: [id number] Name: KARISHMA PICKARD Rep #: [id number] : 1985 39 From: Boaz Welsh CRNA PCP: Dr. Denis Garcia MD Status:REG [facility] Y Race: C Location: [place] [address] Anesthesia: Postop Eval I Current Vital Signs Temperature: 97.9 F Pulse Rate: 110 Blood Pressure: 142/96 Respiratory Rate: 22 Pulse Ox: 94 Assessment Airway patent: Yes Spontaneous unlabored respirations: Yes nausea: No Vomiting: No Anesthesia Complication: No Fluid Hydration Crystalloid volume administer (ml): 50 Total IV fluid infused: 50 Progress Note Anesthesia document: Postop Eval 1 completed: Yes 08/14/24829 Date Boaz Welsh TUTORING MANAGER Cosigner Signature: Date CC: Signed Normal [facility] MR/[id number] 08-14-2024 MR/POSTOPAN2 [facility] Medical Records Department [address] [place] [address] Anesthesia Postop Eval II 08/14/24858 MR#: [id number] Acct: [id number] Name: KARISHMA PICKARD Rep #: [id number] : 1985 39 From: Ramírez Kline MD PCP: Dr. Denis Garcia MD Status:REG [facility] Y Race: C Location: [place] [address]- Anesthesia Postop Eval I Sum Postop Eval Completion status Anesthesia document: Postop Eval 1 completed: Yes Anesthesia Postop Eval I Summary Anesthesia Postop Eval I Summary: Anesthesia Postop Eval I: Assessment Summary Airway patent Yes 08/14/24 08:30 TUTORING MANAGER.TNES Spontaneous unlabored Yes 08/14/24 08:30 TUTORING MANAGER.TNES respirations Mental status nausea No 08/14/24 08:30 TUTORING MANAGER.TNES Vomiting No 08/14/24 08:30 TUTORING MANAGER.TNES Anesthesia Postop Eval I: Fluid Summary Crystalloid volume administer 50 08/14/24 08:30 TUTORING MANAGER.TNES (ml) Colloids volume administered ( ml) Blood Product volume administered (ml) Total IV fluid infused 50 08/14/24 08:30 TUTORING MANAGER.TNES Anesthesia Postop Eval I: Summary Notes Anesthesia Complication No 08/14/24 08:30 TUTORING MANAGER.TNES Anesthesia Complication Comment: Post-operative progress note Anesthesia: Postop Eval II Evaluation Mental status: Awake Pain Level: 0 nausea: No Vomiting: No 08/14/24858 Ramírez Headley Signature: Date CC: Signed Normal [facility] Operative Reporton 5 Operative Report [facility] Medical Records Department [address] [place] [address] Operative Report 08/14/2429 MR#: [id number] Acct: [id number] Name: KARISHMA PICKARD Rep #: [id number] : 1985 39 From: Cas Leavitt MD PCP: Dr. Denis Garcia MD Status:[facility] Location: [place] [address] Operative Report (Standard) Operative Information Date of Procedure: 08/14/24 Pre-Operative Diagnosis: Lumbosacral spondylosis, lumbosacral degenerative disc disease, lumbar facet arthropathy Post-Operative Diagnosis: Lumbosacral spondylosis, lumbosacral degenerative disc disease, lumbar facet arthropathy Surgery/Procedure Performed: Left-sided lumbar radiofrequency ablation of the medial branch at L4, L5, S1 size tester: No Type of Anesthesia: Local MAC RN Documented Start/Stop Times: Operation Date: 08/14/24 08:30 Case Time Into Pre-Op 08/14/24 06:47 Out of Pre-Op 08/14/24 07:42 Anesthesia Start 08/14/24 08:00 Into Room 08/14/24 08:00 Procedure Start 08/14/24 08:10 Procedure End 08/14/24 08:22 Anesthesia End 08/14/24 08:25 Out of Room 08/14/24 08:25 Procedure Start Time: 08:29 Procedure Stop Time: 08:29 Select all DRAINS/GRAFTS/IMPLANTS that apply: None Estimated Blood Loss: 0 Specimen collected: No Description of surgery: PROCEDURE: ANESTHESIA: MAC. BLOOD LOSS: Minimal. COMPLICATIONS: None. DESCRIPTION OF PROCEDURE: History and physical of today was reviewed. Risks and benefits of the procedure were explained. The patient understood and agreed to proceed. Informed consent was obtained. IV inserted per routine protocol. The patient was taken to the operating room and placed in the prone position with a pillow positioned underneath the abdomen. The left side of her lower back was prepped and draped in a sterile fashion using iodine x3. Under fluoroscopy guidance in an oblique view, the L3 through S1 vertebral bodies were visualized. The skin and subcutaneous tissue was anesthetized with approximately 10 mL of 1% lidocaine using a 25-gauge regular needle. Under direct visualization on fluoroscopy at approximately 25-degree angle, starting on the left L3, ending on the left S1, passing through the L4 and L5, using a 20-gauge 15-cm with a 10-mm curved active-tip radiofrequency ablation needle, the needle was passed through the skin. The tip of the needle was maneuvered and directed towards the superior medial gutter of the transverse process at the vicinity of the medial branch. Once the tip of the needle was in contact with the bone, the needle was pulled approximately 2 mm off the bone. The stylette of each needle was then removed. After negative aspiration of blood or CSF and confirmation on AP, oblique as well as lateral view, the radiofrequency ablation probe was then inserted at each level. Impedance was then recorded at L3 to be 299 ohm, at L4 to be 307 ohm, at L5 to be 387 ohm, and at S1 to be 282 ohm. Motor evoked potential was then initiated to 1.5 volt and 2 Hz without any motor response at each corresponding level. The probe was then removed intact and a total of 6 mL of preservative-free 1% lidocaine was injected in divided doses between those four levels after negative aspiration of blood or CSF. The radiofrequency ablation probe was then reinserted. After confirmation on AP, oblique as well as lateral view, radiofrequency ablation was then initiated to 80 degree Celsius for 90 second at each level. Once concluded, the probe was then removed intact. A total of 6 mL of preservative-free 0.25% Marcaine with 40 mg of Depo-Medrol was injected in divided doses between those four levels. The needles were then removed intact. The patient experienced no sign or symptoms of intrathecal or intravascular injection. The patient experienced no paresthesia. The procedure was completed without any apparent difficulty or any complications. The patient appeared to tolerate it well. Sensory as well as motor exam was unchanged from prior to the procedure. ASSESSMENT AND PLAN: This is a 39-year-old female with lumbosacral spondylosis, lumbosacral degenerative disc disease, lumbar facet arthropathy status post left-sided lumbar radiofrequency ablation of the medial branch L4-S1, patient will continue her current medications, patient will follow-up in approximately 2 weeks for reevaluation. Surgical Findings: 0 Complications Complications: No Admit VTE Documentation VTE Present on Admission: No VTE Mechan Device Prophylaxis: None VTE Pharm Prophylaxis ordered?: No 08/14/24 0833 Cosigner Signature (if applicable): CC: Dr. Cas Leavitt MD; Dr. Denis Garcia MD Signed Normal [facility] ,Urineon 08-14-2024 Beta HCG ( test) Ql (U) Negative Normal [facility] Comment on above: Result Comment: Very dilute urine specimens, as indicated by a low specific gravity, may not contain product sales representative levels of hCG. If is still suspected, a first morning urine specimen should be collected 48 hours later and tested. Performed By: #### L 400.7600 #### [facility] Laboratory [address] [place], [address] Urine testOrdered By: Ramírez Kline on 08-14-2024 HCG ( test) Ql (U) Negative [facility] Comment on above: Very dilute urine sp ecimens, as indicated by a low specificgravity, may not contain product sales representative levels of hCG. If is still suspected, a first morning urinespecimen should be collected 48 hours later and tested. Bedside Glucoseon 06-12-2024 FINGERSTICK GLU 310 mg/dL High 74-106 [facility] Comment on above: Result Comment: ALEXYS GONZALEZ OF PATIENT CARE PER NURSING PROTOCOL Performed By: #### L 501.080 #### [facility] Laboratory [address], [address] L/S Spine Min 4 Viewson 05-28 L/S Spine Min 4 Views [facility] Imaging Services [address] [place] [address] L/S Spine Min 4 Views MR#: [id number] Acct: [id number] Name: KARISHMA PICKARD Rep #: [id number] : 1985 F 39 From: Alcides Jacob MD PCP: Dr. Denis Garcia MD Status: REG [facility] Study: L/S Spine Min 4 Views Date of Exam: 06/12/24 Exam# [id number] Ordering Dr: [place] [id number] STUDY: X-RAY - LUMBAR SPINE REASON FOR EXAM: Female, 39 years old. RADIO FREQ ABLATION, RIGHT TECHNIQUE: view(s) of the lumbar spine were obtained. COMPARISON: None FINDINGS: 12.7 seconds of fluoroscopy of the lumbar spine was utilized operating room during radiofrequency ablation and 8 images are submitted for interpretation. . RAD/L/S Spine Min 4 Views IMPRESSION: Fluoroscopy during radiofrequency ablation. Electronically Signed: Alcides Jacob MD at 11:13 EST , CC: Dr. Cas Leavitt MD; Dr. Denis Garcia MD Pbx Installer: Signed [facility] MR/POSTOP.[facility] 06-12-2024 MR/POSTOP.[facility] Medical Records Department [address] [place] [address] Anesthesia Postop Eval I 06/12/24 0959 MR#: [id number] Acct: [id number] Name: KARISHMA PICKARD Rep #: [id number] : 1985 39 From: Kolby Dyer MD PCP: Dr. Denis Garcia MD Status:REG [facility] Y Race: C Location: [place] [address] Anesthesia: Postop Eval I Current Vital Signs Temperature: 97.3 F Pulse Rate: 111 Blood Pressure: 146/102 Respiratory Rate: 16 Pulse Ox: 98 Oxygen Delivery Method: Room Air Assessment Airway patent: Yes Spontaneous unlabored respirations: Yes Mental status: Awake and Apprehensive nausea: No Vomiting: No Anesthesia Complication: No Fluid Hydration Crystalloid volume administer (ml): 12 Total IV fluid infused: 12 Progress Note Anesthesia document: Postop Eval 1 completed: Yes 06/12/24 1000 Date Kolby Dyer MD Cosigner Signature: Date CC: Signed Normal [facility] MR/[id number] 06-12-2024 [facility] Medical Records Department [address] [place] [address] Anesthesia Postop Eval II 06/12/24 1009 MR#: [id number] Acct: [id number] Name: KARISHMA PICKARD Rep #: [id number] : 1985 39 From: Ramírez Kline MD PCP: Dr. Denis Garcia MD Status:REG [facility] Y Race: C Location: [place] [address] Anesthesia Postop Eval I Sum Postop Eval Completion status Anesthesia document: Postop Eval 1 completed: Yes Anesthesia Postop Eval I Summary Anesthesia Postop Eval I Summary: Anesthesia Postop Eval I: Assessment Summary Airway patent Yes 06/12/24 10:00 Spontaneous unlabored Yes 06/12/24 10:00 respirations Mental status Awake,Apprehensive 06/12/24 10:00 nausea No 06/12/24 10:00 Vomiting No 06/12/24 10:00 Anesthesia Postop Eval I: Fluid Summary Crystalloid volume administer 12 06/12/24 10:00 (ml) Colloids volume administered ( ml) Blood Product volume administered (ml) Total IV fluid infused 12 06/12/24 10:00 Anesthesia Postop Eval I: Summary Notes Anesthesia Complication No 06/12/24 10:00 Anesthesia Complication Comment: Post-operative progress note Anesthesia: Postop Eval II Evaluation Mental status: Awake Pain Level: 1 nausea: No Vomiting: No 06/12/24 1009 Date Ramírez Dingignyanely Signature: Date CC: Signed Normal [facility] Operative Reporton 4 Operative Report [facility] Medical Records Department [address] [place] [address] Operative Report 06/12/24 0954 MR#: [id number] Acct: [id number] Name: KARISHMA PICKARD Rep #: [id number] : 1985 39 From: Cas Leavitt MD PCP: Dr. Denis Garcia MD Status:[facility] Location: [place] [address] Operative Report (Standard) Operative Information Date of Procedure: 06/12/24 Pre-Operative Diagnosis: 1 Post-Operative Diagnosis: 1 Surgery/Procedure Performed: 1 size tester: Yes Supervisor Body Assembly: none Tasks completed by parking assistant: Other Type of Anesthesia: MAC and Topical Anesth RN Documented Start/Stop Times: Operation Date: 06/12/24 07:30 Case Time Into Pre-Op 06/12/24 06:08 Anesthesia Start 06/12/24 09:18 Into Room 06/12/24 09:18 Procedure Start 06/12/24 09:35 Procedure End 06/12/24 09:46 Anesthesia End 06/12/24 09:52 Out of Room 06/12/24 09:52 Procedure Start Time: 09:56 Procedure Stop Time: 09:56 Select all DRAINS/GRAFTS/IMPLANTS that apply: None Estimated Blood Loss: 0 Fluids Replaced: 0 Specimen collected: No Description of surgery: 1 Surgical Findings: Pre-Operative Diagnosis: Lumbosacral spondylosis, lumbosacral degenerative disc disease, lumbar facet arthropathy Post-Operative Diagnosis: Lumbosacral spondylosis, lumbosacral degenerative disc disease, lumbar facet arthropathy Surgery/Procedure Performed:: Right-sided lumbar radiofrequency ablation of the medial branch L4, L5, S1 Type of Anesthesia: MAC Estimated Blood Loss (mL): Minimal Description of Procedure: History and physical today was reviewed. Risks and benefits of procedure explained. The patient understood, agreed to the procedure and informed consent was obtained. IV inserted per routine protocol. The patient was taken to the operating room, placed in the prone position with a pillow positioned underneath the abdomen. The left side of the lower back was prepped and draped in a sterile fashion using iodine x 3. Under fluoroscopy guidance, on an oblique view, the L3 through S1 vertebral bodies were visualized. The skin and subcutaneous tissue was anesthetized with approximately 10 mL of 1% lidocaine using a 25-gauge regular needle. Under direct visualization with fluoroscopy at approximately 25-degree angle, starting on the right L3, ending on the right S1 passing through the L4-L5 using a 20-gauge 15 cm with a 10 mm curved active tip radiofrequency ablation needle the needle passed through the skin. The tip of the needle was maneuvered and directed towards the superior and medial gutter of the transverse process at the vicinity of the medial branch. Once the tip of the needle was in contact with the bone, the needle pulled approximately 2 mm up the bone. The stylet of each needle was then removed. After negative aspiration of blood with CSF and confirmation of AP as well as oblique view, radiofrequency ablation probe was then inserted at each level. Impedance was then recorded at L3 to be 305, at L4 272, at L5 321, at S1 290 ohm. Motor-evoked potential was then initiated to 1.5 volt without any motor response at each corresponding level. The probe was then removed intact and a total of 6 mL preservative-free 1% lidocaine was injected in divided doses between those 4 levels after negative aspiration of blood with CSF. The radiofrequency ablation probe was then reinserted after confirmation of AP, oblique as well as lateral view. Radiofrequency ablation was then initiated to 80 degrees Celsius for 90 seconds at each level. Once concluded, the probe was then removed intact and a total of 6 mL of preservative-free 0.25% Marcaine with 40 mg Depo-Medrol was injected in divided doses between those 4 levels. The needles were then removed intact. The patient experienced no signs or symptoms of intrathecal, intravascular injection. The patient experienced no paraesthesia. The procedure was completed without any apparent difficulty, any complication. The patient appeared to tolerate well. Sensory as well as motor exam was unchanged from prior to procedure. ASSESSMENT AND PLAN: This is a 39-year-old female with lumbosacral spondylosis, lumbosacral degenerative disc disease, lumbar facet arthropathy, status post right-sided lumbar radiofrequency ablation of the medial branch L4 through S1. The patient will continue her current medications. The patient will follow up in approximately 2 weeks for reevaluation. Complications Complications: No Admit VTE Documentation VTE Present on Admission: No 06/12/24 0958 Cosigner Signature (if applicable): CC: Dr. Cas Leavitt MD; Dr. Denis Garcia MD Signed Normal [facility] ,Urineon 06-12-2024 Beta HCG ( test) Ql (U) Negative Normal [facility] Comment on above: Result Comment: Very dilute urine specimens, as indicated by a low specific gravity, may not contain product sales representative levels of hCG. If is still suspected, a first morning urine specimen should be collected 48 hours later and tested. Performed By: #### L 400.7602 #### [facility] Laboratory [address] [facility]. [place], [place], [address] Bedside Glucoseon 03-13-2024 FINGERSTICK GLU 177 mg/dL High 74-106 [facility] Comment on above: Result Comment: ALEXYS GONZALEZ OF PATIENT CARE PER NURSING PROTOCOL Performed By: #### L 501.080 #### [facility] Laboratory [address] [facility] [facility], [address] Fluor Guidance for Spine Inj on 03-13-2024 Fluor Guidance for Spine Inj [facility] Imaging Services [address] [place], [place] [address] Fluor Guidance for Spine Inj MR#: [id number] Acct: [id number] Name: KARISHMA PCIKARDAN Rep #: [id number] : 1985 F 39 From: Sarwat doe MD PCP: Dr. Denis Garcia MD Status: DEP [facility] Study: Fluor Guidance for Spine Inj Date of Exam: Exam# [id number] Ordering [place]: [place] [id number] PROCEDURE: Caudal epidural steroid injection. DATE OF EXAMINATION: March 13, 2024. INDICATION: Female, 39 years old. Low back pain. FLUOROSCOPY TIME (if supplied): (19 seconds) minutes/seconds. 30.07 mGy. One image was submitted. RAD/Fluor Guidance for Spine Inj IMPRESSION: Intraoperative fluoroscopic services provided for caudal epidural steroid injection. Electronically Signed: Sarwat Wheat MD at 14:32 EDT Reading Location ID and State: [facility] / ID , Service support , CC: Dr. Cas Leavitt MD; Dr. Denis Garcia MD Pbx Installer: Signed [facility] MR/POSTOP.[facility] 03-13-2024 MR/POSTOP.[facility] Medical Records Department [address] [place] [address] Anesthesia Postop Eval I 03/13/24 1034 MR#: [id number] Acct: [id number] Name: KARISHMA PICKARD Rep #: [id number] : 1985 39 From: Jo Coleman CRNA PCP: Dr. Denis Garcia MD Status:REG [facility] Y Race: C Location: [place] [address] Anesthesia: Postop Eval I Current Vital Signs Temperature: 98.4 F Pulse Rate: 80 Blood Pressure: 137/93 Respiratory Rate: 18 Pulse Ox: 98 Oxygen Delivery Method: Room Air Assessment Airway patent: Yes Spontaneous unlabored respirations: Yes Mental status: Awake and Calm nausea: No Vomiting: No Anesthesia Complication: No Fluid Hydration Crystalloid volume administer (ml): 200 Total IV fluid infused: 200 Progress Note Anesthesia document: Postop Eval 1 completed: Yes 03/13/24 1036 Date Jo Coleman TUTORING MANAGER Cosigner Signature: Date CC: Signed Normal [facility] MR/RYETMNZI2mv 03-13-2024 MR/POSTOPAN2 [facility] Medical Records Department [address] [place] [address] Anesthesia Postop Eval II 03/13/24 1120 MR#: [id number] Acct: [id number] Name: KARISHMA PICKARD Rep #: [id number] : 1985 39 From: Ramírez Kline MD PCP: Dr. Denis Garcia MD Status:REG [facility] Y Race: C Location: [place] [address] Anesthesia Postop Eval I Sum Postop Eval Completion status Anesthesia document: Postop Eval 1 completed: Yes Anesthesia Postop Eval I Summary Anesthesia Postop Eval I Summary: Anesthesia Postop Eval I: Assessment Summary Airway patent Yes 03/13/24 10:36 TUTORING MANAGER.ROBYNOBDarrell Spontaneous unlabored Yes 03/13/24 10:36 TUTORING MANAGER.TASHA respirations Mental status Awake,Calm 03/13/24 10:36 TUTORING MANAGER.ROBYNOBY nausea No 03/13/24 10:36 TUTORING MANAGER.ROBYNOBY Vomiting No 03/13/24 10:36 TUTORING MANAGER.ROBYNOBDarrell Anesthesia Postop Eval I: Fluid Summary Crystalloid volume administer 200 03/13/24 10:36 TUTORING MANAGER.TASHA (ml) Colloids volume administered ( ml) Blood Product volume administered (ml) Total IV fluid infused 200 03/13/24 10:36 TUTORING MANAGER.ROBYNOBDarrell Anesthesia Postop Eval I: Summary Notes Anesthesia Complication No 03/13/24 10:36 TUTORING MANAGER.ROBYNOBDarrell Anesthesia Complication Comment: Post-operative progress note Anesthesia: Postop Eval II Evaluation Mental status: Awake Pain Level: 0 nausea: No Vomiting: No 03/13/24 1120 Date Ramírez Headley Signature: Date CC: Signed Normal [facility] Operative Reporton 4 Operative Report [facility] Medical Records Department [address] [place] [address] Operative Report 03/13/24 1029 MR#: [id number] Acct: [id number] Name: KARISHMA PICKARD Rep #: [id number] : 1985 39 From: Cas Leavitt MD PCP: Dr. Denis Garcia MD Status:[facility] Location: [place] [address] Report of Operation Date of Procedure: 03/13/24 Pre-Operative Diagnosis: Lumbosacral radiculopathy, lumbosacral degenerative disc disease, lumbosacral spinal stenosis Post-Operative Diagnosis: Lumbosacral radiculopathy, lumbosacral degenerative disc disease, lumbosacral spinal stenosis Surgery/Procedure Performed:: Diagnostic/therapeutic caudal epidural steroid injection under fluoroscopic guidance Type of Anesthesia: MAC Estimated Blood Loss (mL): Minimal Description of Procedure: DESCRIPTION OF PROCEDURE: History and physical of today was reviewed. Risks and benefits of the procedure were explained. The patient understood and agreed to proceed. Informed consent was obtained. IV inserted per routine protocol. The patient was taken to the operating room and placed in the prone position with a pillow positioned underneath the abdomen. The lower back and tailbone area was prepped and draped in a sterile fashion using iodine x3. Under fluoroscopy guidance on a lateral view, the caudal space was identified. The skin and subcutaneous tissue was anesthetized with approximately 3 mL of 1% lidocaine using a 25-gauge regular needle. Under direct visualization with fluoroscopy, using a 22-gauge 3-1/2-inch spinal needle, the needle was advanced via the skin through the sacral hiatus. The tip of the needle was passed through the sacrococcygeal ligament and advanced to approximately S4 area. After negative aspiration of blood or CSF, a total of 3 mL of contrast was injected to confirm correct placement of the needle as well as cephalad spread. The spread was followed to approximately L5 area. After confirmation on AP as well as lateral view and repeated negative aspiration, a total of 15 mL of preservative-free 0.125% Marcaine with 80 mg of Depo-Medrol was injected easily. The needle was then removed intact. The patient experienced no sign or symptoms of intrathecal or intravascular injection. The patient experienced no paresthesia. The procedure was completed without any apparent difficulty or any complications. The patient appeared to tolerate it well. ASSESSMENT AND PLAN: This is a 39-year-old female with lumbosacral radiculopathy, lumbosacral degenerative disc disease, lumbosacral spinal stenosis status post diagnostic/therapeutic caudal epidural steroid injection, patient will continue her current medications, patient will follow in approximately 2 weeks for reevaluation. Complications None 03/13/24 1030 Cosigner Signature (if applicable): CC: Dr. Cas Leavitt MD; Dr. Denis Garcia MD Signed Normal [facility] ,Urineon 03-13-2024 Beta HCG ( test) Ql (U) Negative Normal [facility] Comment on above: Result Comment: Very dilute urine specimens, as indicated by a low specific gravity, may not contain product sales representative levels of hCG. If is still suspected, a first morning urine specimen should be collected 48 hours later and tested. Performed By: #### L 400.7600 #### [facility] Laboratory [address] [place], [address] CNOVon 03-06-2024 CNOV Office Visit (INTMWS ) KARISHMA PICKARD ([id number]) 1985 F T Date Time Provider Department 03/06/24 9:00 AM GINNY GOMEZ INTMWS During your visit today, we recorded the following information about you: Pulse Respiration Blood pressure Weight 132/minute 20/minute 128/96 140.5 kg Ginny Gomez, PARTS SALVAGER.SHOWROOM SALES CONSULTANT 03/06/2024 9:37 AM Signed CC: Patient presents with: Rx Refills: C/o BP problems HPI Karishma Pickard is a 39 year old female who presents today for above. Her visit today is for follow-up. Patient was last seen for this approximately 6 months ago. HTN- patient presented to [facility] ER on 02/26 for elevated home BP of 199/112. She admitted to feeling extremely anxious regarding BP and under a lot of stress. CBC, BMP, EKG were unremarkable. BP in ER was initially 17//113, down to 148/106 at discharge without any intervention. Medication changes: No Taking all medications as prescribed: Yes except she was out of Lisinopril for about 6 weeks, restarted around 02/23. Side effects: No Home BP's: Yes 150's/100's Denies: headache, chest pain, palpitations, dyspnea, and peripheral edema. Last 4 Encounter BP Readings: Date: BP: 09/03/2023 117/79 06/04/2023 151/88 06/02/2023 118/78 04/12/2023 128/90 Last 3 Encounter Wt Readings: Date: Wt: 09/03/2023 154.1 kg (339 lb 12.8 oz) 06/04/2023 150.6 kg (332 lb) 06/02/2023 150.6 kg (332 lb) Diabetes: Home blood sugar readings: fasting around 120-140 Hypoglycemia: No She is compliant with medication(s) except she never started Ozempic due to confusion on how to inject the medication. She is tolerating med(s) without any side effects. Increased thirst: No Urinary frequency: No Nocturia: No Fatigue: No Unintentional weight loss: No Blurred vision: No Numbness, tingling or pain in extremities: No Ulcers or sores on feet: No Last Ophthalmology exam: within the past 12 months Patient's last HgA1C : Hemoglobin A1C (%) Date Value 07/05/2023 7.8 12/08/2022 7.4 12/26/2013 6.1 Hemoglobin A1C (POCT) (%) Date Value 03/03/2023 9.6 HILDA: she is intolerant to CPAP and has not been wearing. She is scheduled for follow-up with sleep medicine next month. Depression: medications managed by psychiatry. She is currently only treated with Abilify. She has a lot of stress and is very anxious all the time but feels that depression is stable. Review of Systems See HPI PAST MEDICAL HISTORY No date: Cholelithiases 08/10/2022: Chronic bilateral low back pain without sciatica No date: Chronic pain syndrome 03/24/2021: Class 3 severe obesity due to excess calories without serious comorbidity with body mass index (BMI) of 50.0 to 59.9 in adult ([facility]) 08/10/2022: Controlled type 2 diabetes mellitus without complication, without long-term current use of insulin ([facility]) 08/10/2022: DDD (degenerative disc disease), lumbar 01/27/2017: Depression 01/27/2017: Fibromyalgia 08/10/2022: WATSON (generalized anxiety disorder) No date: GERD (gastroesophageal reflux disease) 12/08/2022: Leukocytosis No date: Morbid obesity ([facility]) No date: Obstructive sleep apnea Comment: Not on CPAP 09/18/2011: HILDA (obstructive sleep apnea) No date: PCOS (polycystic ovarian syndrome) 08/10/2022: PTSD (post-traumatic stress disorder) 08/10/2022: Tobacco use disorder No date: Ulnar neuropathy 05/17/2017: Ulnar neuropathy at elbow of left upper extremity Comment: Added automatically from request for surgery [id number] PAST SURGICAL HISTORY 08/2010: APPENDECTOMY 07/21/2017: CHOLECYSTECTOMY HX Comment: Laparoscopic. Dr. Brooks. [facility] No date: DANDC, DIAG AND/OR THERAPEUTIC 06/02/2017: NEUROPLASTY AND/TRANSPOSITION ULNAR NERVE ELBOW; Left Comment: Left Ulnar nerve decompression 06/2022: NRV DESTR RFA, CHEM OTHER; Left No date: TONSILLECTOMY HX ALLERGIES Duloxetine, Elavil [Amitriptyline Hcl], and Gabapentin MEDICATIONS ARIPiprazole (ABILIFY) 10 mg tablet Take 2 tablets by mouth every afternoon. HYDROcodone-acetaminoph en (NORCO) 5-325 mg per tablet Take 1 tablet by mouth two times a day as needed. tiZANidine (ZANAFLEX) 4 mg tablet Take 1 tablet by mouth three times a day as needed. carBAMazepine XR (TEGRETOL XR) 200 mg 12 hr tablet Take 1 tablet by mouth every 12 hours. semaglutide (OZEMPIC) 0.25 mg or 0.5 mg (2 mg/3 mL) pen Inject 0.5 mg subcutaneously one time a week. ergocalciferol 50,000 unit capsule (VITAMIN D2, DRISDOL) Take 1 capsule by mouth one time a week. traZODone (DESYREL) 150 mg tablet Take 150 mg by mouth daily at bedtime. glipiZIDE (GLUCOTROL XL) 10mg 24 hr tablet Take 1 tablet by mouth daily with breakfast. blood sugar diagnostic (ONETOUCH ULTRA TEST) test strip Test blood sugar(s) 1 times daily. Dx: Type 2 DM - unontrolled E11.65 Insulin: No The One Touch Ultra 2 glucometer is what patient has available so ok for the one touch ultra test s (more content not included)... Normal [facility] Basic Metabolic Profile (BMP )on 02-27-2024 BUN/CRE 13.4 RATIO Normal 10-20 [facility] Comment on above: Performed By: #### L 500.2500, L100.0100 #### [facility] Laboratory [address] [facility] [facility], [address] CA,Total 9.6 mg/dL Normal 8.5-10.1 [facility] Comment on above: Performed By: #### L 500.2500, L100.0100 #### [facility] Laboratory [address] [place], [address] Chloride [Moles/Vol] 107 mmol/L Normal 98-107 [facility] Comment on above: Performed By: #### L 500.2500, L100.0100 #### [facility] Laboratory [address] [place], [address] CO2 [Moles/Vol] 24.0 mmol/L Normal 21.0-32.0 [facility] Comment on above: Performed By: #### L 500.2500, L100.0100 #### [facility] Laboratory [address] [place], [address] Creatinine [Mass/Vol] 0.67 mg/dL Normal 0.55-1.02 [facility] Comment on above: Result Comment: The validity of the calculated GFR GFRAA in patients over 70 years has not been determined. Clinical correlation is essential. Performed By: #### L 500.2500, L100.0100 #### [facility] Laboratory [address] [place], [address] EST GFR - AA 127 mL/min Normal >60 [facility] Comment on above: Result Comment: Afri can Kazakh GFR Calc Performed By: #### L 500.2500, L100.0100 #### [facility] Laboratory [address] [place], [address] GAP 7 Normal 5-15 [facility] Comment on above: Performed By: #### L 500.2500, L100.0100 #### [facility] Laboratory [address] [place], [address] GFR/1.73 sq M.predicted among non-blacks MDRD (S/P/Bld) [Vol rate/Area] 105 mL/min/{1.73_m2} Normal >60 [facility] Comment on above: Result Comment: Non- GFR Calc Performed By: #### L 500.2500, L100.0100 #### [facility] Laboratory [address] [place], [address] Glucose [Mass/Vol] 224 mg/dL High 74-106 [facility] Comment on above: Result Comment: Gluc ose result greater than or equal to 200 mg/dL suggests DIABETES MELLITUS per A.D.A. criteria. Performed By: #### L 500.2500, L100.0100 #### [facility] Laboratory [address] [place], [address] Potassium [Moles/Vol] 3.4 mmol/L Low 3.5-5.1 [facility] Comment on above: Performed By: #### L 500.2500, L100.0100 #### [facility] [address] [place], [address] Sodium [Moles/Vol] 138 mmol/L Normal 136-145 [facility] Comment on above: Performed By: #### L 500.2500, L100.0100 #### [facility] Laboratory [address] [place], [address] Urea nitrogen [Mass/Vol] 9 mg/dL Normal 7-18 [facility] Comment on above: Performed By: #### L 500.2500, L100.0100 #### [facility] Laboratory [address] [place], [address] CBC W/Diff, Automatedon 09-0 REACTIVE LYMPH 2+ Normal [facility] Comment on above: Performed By: #### L 500.2500, L100.0100 #### [facility] Laboratory [address] [place], [address] SMEAR COMMENT SCANNED Normal [facility] Comment on above: Result Comment: LYMP HOCYTOSIS PRESENT Performed By: #### L 500.2500, L100.0100 #### [facility] Laboratory [address] [place], [address] Emergency Department Summary on 02-27-2024 Emergency Department Summary [facility] Medical Records Department [address] [place] [address] Emergency Department Summary 02/27/24 MR#: [id number] Acct: [id number] Name: KARISHMA PICKARD Rep #: [id number] : 1985 39 From: Miguel Matos PCP: Dr. Denis Garcia MD Status:DEP ER Location: ED HPI History of Present Illness Chief Complaint: Hypertension Narrative Narrative: Patient referred in to the ED after speaking with on-call PCP for elevated blood pressure. She been not taking her lisinopril 10 mg, however states 2 weeks ago her blood pressure systolic 120s in her pain doctor's office. 2 days ago took her blood pressure systolic 160s over 90s. She started back on her lisinopril 10 mg. Blood pressure still in the 160s this evening and went up to 199 systolic. She called the on-call doctor. She was referred in the ED. She states history of severe anxiety and more stressed coming in here. She did denies chest pain shortness of breath abdominal pain. Over a week ago had a headache that resolved. None currently. She states she is currently anxious due to being sent here. She was told that she could have kidney failure. She reports normal urine output. No dysuria. No cough. PFSH [facility] Medical History Pleurodynia Fibromyalgia Wears glasses OCD (obsessive compulsive disorder) PTSD (post-traumatic stress disorder) Depression Marijuana use Back pain Dietary restriction Gastric reflux Smoker BiPAP (biphasic positive airway pressure) dependence Shortness of breath on exertion Leg cramps History of pain when walking History of edema Cardiology follow-up encounter Hypertension Chest pain Anxiety Ulnar nerve entrapment Chronic neck and back pain Balance problem Fatigue Diabetes Home Medications ???Medication ???Instructions ???Recorded ???Last Taken ???Type lisinopril 10 mg tablet 10 mg PO DAILY 02/21/21 11/14/23 History pantoprazole 20 mg tablet,delayed 40 mg PO DAILY 03/02/21 11/15/23 History release (Protonix) dapagliflozin propanediol 5 mg 15 mg PO DAILY 07/23/21 11/14/23 History tablet (Farxiga) aripiprazole 10 mg tablet 20 mg PO DAILY 01/27/23 11/14/23 History hydrocodone-acetaminoph en 5-325mg 1 tab PO BID PRN PRN Pain 03/11/23 11/14/23 History 5mg-325mg rosuvastatin 20 mg tablet 20 mg PO DAILY 03/11/23 11/14/23 History tizanidine 4 mg tablet 4 mg PO TID PRN back 08/23/23 11/14/23 History glipizide 5 mg tablet 10 mg PO DAILY 03/18/24 05/19/24 History Allergy/AdvReac Type Severity Reaction Status Date / Time adhesive tape Allergy BLISTERS Verified 11/15/23 06:32 gabapentin Allergy not alert Verified 11/15/23 06:32 amitriptyline AdvReac NEEDS Verified 11/15/23 06:32 FOLLOW-UP duloxetine (From Cymbalta) AdvReac NEEDS Verified 11/15/23 06:32 FOLLOW-UP mirtazapine (From Remeron) AdvReac NEEDS Verified 11/15/23 06:32 FOLLOW-UP Family History Mother Hypertension Heart disease Diabetes Multiple sclerosis Clotting disorder Father CVA (cerebral vascular accident) Hypertension Heart disease Grandmother Heart disease Diabetes Hypercholesterolemia Grandfather Heart disease CVA (cerebral vascular accident) Surgical History Hx of dilation and curettage Hx of cholecystectomy History of tonsillectomy History of appendectomy Social History Smoking Status: Current every day smoker tobacco type: cigarettes ROS ROS ED Constitutional Constitutional ED: Denies chills, fever(s) or sweats Eyes Eyes: Denies change in vision ENT ENT ED: Denies dysphagia or sore throat Cardiovascular Cardiovascular: Denies chest pain, leg edema, palpitations or racing heartbeat Respiratory/Chest Respiratory/Chest: Denies cough, dyspnea or dyspnea on exertion Gastrointestinal Gastrointestinal: Denies abdominal pain, diarrhea, nausea or vomiting Genitourinary Genitourinary ED: Denies dysuria, hematuria or urinary frequency Musculoskeletal Musculoskeletal: Denies back pain, extremity pain or neck pain Integumentary Denies rash or wounds Neurologic Neurologic: Denies headache(s), paresthesias or weakness EXAM Physical Exam Const Vital Signs: 02/27/24 00:43 02/27/24 00:47 Temperature 98.0 F Temperature Source Temporal Pulse Rate 126 H Respiratory Rate 24 H Respiratory Effort Normal Non-Labored Respiratory Pattern Normal Blood Pressure 175/113 H Blood Pressure Mean 133 Pulse Ox 99 Oxygen Delivery Method Room Air Positive well nourished and well developed Constitutional Narrative: Anxious, nontoxic General Appearance ED: well developed HEENT Report (more content not included)... Normal [facility] 02-11-2024 [facility] Telephone (INTMWS) KARISHMA PICKARD ([id number]) 1985 F T Date Time Provider Department 02/11/24 DENIS GARCIA INTMWS During your visit today, we recorded the following information about you: Chandra HazelFITZ adair 02/11/2024 12:24 PM Signed Patient calling, has a migraine that started 6 am this morning, she is rating 9/10. She took 2 Excedrin migraine around 6:30 am. She was nauseous but ate something and does not feel nauseous anymore. She denies any dizziness. States it is on the right side towards her samaritan. Offered an appointment or urgent care, she states she would not be able to come in she is not able to move. Asking if she can take 2 more Excedrin later today? Please advise. Denis Garcia MD 02/11/2024 1:27 PM Signed She should be able to take 2 more caps of Excedrin Migraine. No follow up scheduled for chronic conditions. Please reschedule cancelled appointments. Harjeet Herrera MA 02/11/2024 1:39 PM Signed Patient notified, verbalized understanding. Patient states that she will call back to schedule. Allergies As of Date: 02/11/2024 Noted Allergy Reaction DULOXETINE 02/11/2015 14 - Other: See Comments Comments: Made her sluggish Made her sluggish ELAVIL (AMITRIPTYLINE HCL) 04/20/2017 14 - Other: See Comments Comments: Made her sluggish GABAPENTIN 02/11/2015 14 - Other: See Comments Comments: Made her sluggish Made her sluggish Date Reviewed: 09/03/2023 Reviewed by: Naomie Huff MA - Fully Assessed Reason for Visit: Migraine [4107] Prescriptions as of 02/11/2024 - ARIPiprazole (ABILIFY) 10 mg tablet Take 2 tablets by mouth every afternoon. - HYDROcodone-acetaminoph en (NORCO) 5-325 mg per tablet Take 1 tablet by mouth two times a day as needed. - tiZANidine (ZANAFLEX) 4 mg tablet Take 1 tablet by mouth three times a day as needed. - carBAMazepine XR (TEGRETOL XR) 200 mg 12 hr tablet Take 1 tablet by mouth every 12 hours. - semaglutide (OZEMPIC) 0.25 mg or 0.5 mg (2 mg/3 mL) pen Inject 0.5 mg subcutaneously one time a week. - ergocalciferol 50,000 unit capsule (VITAMIN D2, DRISDOL) Take 1 capsule by mouth one time a week. - traZODone (DESYREL) 150 mg tablet Take 150 mg by mouth daily at bedtime. - glipiZIDE (GLUCOTROL XL) 10mg 24 hr tablet Take 1 tablet by mouth daily with breakfast. - blood sugar diagnostic (ONETOUCH ULTRA TEST) test strip Test blood sugar(s) 1 times daily. Dx: Type 2 DM - unontrolled E11.65 Insulin: No The One Touch Ultra 2 glucometer is what patient has available so ok for the one touch ultra test strip or other compatible test strip can be substituted if needed. - blood sugar diagnostic (BLOOD GLUCOSE TEST) test strip Test blood sugar(s) 1 times daily. Dx: Type 2 DM - unontrolled E11.65 Insulin: No - Lancets lancets Test blood sugar(s) 1 times daily. Dx: Type 2 DM - Uncontrolled E11.65 Insulin: No - dapagliflozin propanediol (FARXIGA) 10 mg tablet Take 1 tablet by mouth daily with breakfast. - lisinopril (ZESTRIL) 10 mg tablet Take 1 tablet by mouth once daily. - pantoprazole DR (PROTONIX) 40 mg tablet Take 1 tablet by mouth daily before breakfast. - cetirizine (ZYRTEC) 10 mg tablet Take 1 tablet by mouth once daily. - rosuvastatin (CRESTOR) 20 mg tablet Take 20 mg by mouth once daily. - levonorgestrel (MIRENA) 20 mcg/24 hours (8 yrs) 52 mg IUD 1 Each by INTRAUTERINE route one time only for 1 dose. - albuterol (PROVENTIL) 2.5 mg /3 mL (0.083 %) nebulizer solution Use 2.5 mg via nebulizer as needed. - albuterol HFA (PROVENTIL HFA, VENTOLIN HFA) 90 mcg/actuation inhaler Inhale 2 Puffs as instructed every 4 hours as needed. - busPIRone (BUSPAR) 15 mg tablet Take 15 mg by mouth three times daily. - ondansetron (ZOFRAN) 4 mg tablet Take 4 mg by mouth every 8 hours as needed. - hydrOXYzine HCl (ATARAX) 25 mg tablet Take 25 mg by mouth as needed (Can take 1-4 per day as needed). Problem List As Of Date 02/11/2024 Noted Resolved Tonsillitis, chronic [J35.01] 09/18/2011 05/28/2017 HILDA (obstructive sleep apnea) [G47.33] 09/18/2011 T/A hypertrophy [J35.3] 09/18/2011 05/28/2017 Fibromyalgia [M79.7] 01/27/2017 Depression [F32.A] 01/27/2017 GERD (gastroesophageal reflux disease) [K21.9] 05/28/2017 Class 3 severe obesity due to excess calories w*03/24/2021 Controlled type 2 diabetes mellitus without com*08/10/2022 PTSD (post-traumatic stress disorder) [F43.10] 08/10/2022 WATSON (generalized anxiety disorder) [F41.1] 08/10/2022 DDD (degenerative disc disease), lumbar [M51.36]08/10/2022 Chronic bilateral low back pain without sciatic*08/10/2022 Tobacco use disorder [F17.200] 08/10/2022 Leukocytosis [D72.829] 12/08/2022 Vitamin D deficiency [E55.9] 12/17/2022 Encounter Status:Closed by HARJEET HERRERA on 02/11/24 [facility] 36on 11-23-2023 36 [facility] 36on 09-07-2023 36 Noted; agree she michelle samantha make an appointment to be seen. [facility] 36 Received fax request from [facility] for most recent office note, EKG, and cardiac testing. Called patient, and she will be switching to [facility] because it is closer for her. She has had some anxiety and chest pain recently. She is not scheduled in their office, and I suggested she call for an appointment this week. Faxed requested records to [phone], and confirmation received. Normal [facility] XR Chest PA and Lateralon IMPRESSION: Stable exam without acute findings. Pbx Installer: [email or web address] Transcribe Date/Time: Sep 03 2023 2:32P Dictated by : NI ARANGO MD This examination was interpreted and the report reviewed and electronically signed by: NI ARANGO MD on Sep 03 2023 2:32PM [facility] DIVISION OF RADIOLOGY * * *Final Report* * * DATE OF EXAM: Sep 03 2023 9:56AM WOX 5291 - XR CHEST 2V FRONTAL/LAT / PROCEDURE REASON: Pleurodynia * * * * Physician Interpretation * * * * EXAMINATION: CHEST RADIOGRAPH (2 VIEW FRONTAL & LATERAL) CLINICAL HISTORY: Pleurodynia MQ: XC2_6 EXAM DATE/TIME: 09/03/2023 9:56 AM COMPARISON: Chest x-ray on 12/08/2022 RESULT: Lines, tubes, and devices: None. Lungs and pleura: No consolidation. No lung mass. No pleural effusion. No pneumothorax. Cardiomediastinal silhouette: Normal cardiomediastinal silhouette. Bones and soft tissues: Unremarkable. DIVISION OF RADIOLOGY Provider, [facility] - 09/03/2023 * * *Final Report* * * DATE OF EXAM: Sep 03 2023 9:56AM WOX 5291 - XR CHEST 2V FRONTAL/LAT / PROCEDURE REASON: Pleurodynia * * * * Physician Interpretation * * * * EXAMINATION: CHEST RADIOGRAPH (2 VIEW FRONTAL & LATERAL) CLINICAL HISTORY: Pleurodynia MQ: XC2_6 EXAM DATE/TIME: 09/03/2023 9:56 AM COMPARISON: Chest x-ray on 12/08/2022 RESULT: Lines, tubes, and devices: None. Lungs and pleura: No consolidation. No lung mass. No pleural effusion. No pneumothorax. Cardiomediastinal silhouette: Normal cardiomediastinal silhouette. Bones and soft tissues: Unremarkable. IMPRESSION IMPRESSION: Stable exam without acute findings. Pbx Installer: NICHOLAS Transcribe Date/Time: Sep 03 2023 2:32P Dictated by : NI ARANGO MD This examination was interpreted and the report reviewed and electronically signed by: NI ARANGO MD on Sep 03 2023 2:32PM EST [facility] Radiology Study observation (narrative) [facility] XR Chest PA and LateralOrder ed By: [facility] Provider on 09-03-2023 [facility] 36on 08-06-2023 36 Noted; thank you! Normal [facility] Glucose Glucometer (BldC) [M ass/Vol]Ordered By: Cas Leavitt on 06-14-2023 Glucose [Mass/Vol] 203 mg/dL 74-106 [facility] Comment on above: MANAGEMENT OF PATIEN T CARE PER NURSING PROTOCOL Laboratory - Chemistry and C hemistry - challengeOrdered By: Ramírez Kline on 06-14-2023 HCG ( test) Ql (U) Negative [facility] Comment on above: Very dilute urine sp ecimens, as indicated by a low specificgravity, may not contain product sales representative levels of hCG. If is still suspected, a first morning urinespecimen should be collected 48 hours later and tested. Glucose Glucometer (BldC) [M ass/Vol]Ordered By: Cas Leavitt on 03-15-2023 Glucose [Mass/Vol] 189 mg/dL 74-106 [facility] Comment on above: MANAGEMENT OF PATIEN T CARE PER NURSING PROTOCOL Laboratory - Chemistry and C hemistry - challengeOrdered By: Filemon Garner on 03-15-2023 HCG ( test) Ql (U) Negative [facility] Comment on above: Very dilute urine sp ecimens, as indicated by a low specificgravity, may not contain product sales representative levels of hCG. If is still suspected, a first morning urinespecimen should be collected 48 hours later and tested. HEPATITIS B SURFACE ANTIGENo n 03-10-2023 HEPATITIS B VIRUS SURFACE AG Not detected Normal Not Detected [facility] Comment on above: Performed By: #### L [id number], [id number] #### Drycleaner: JESSI BARRAGAN ([id number]) [facility] ([facility]) [address] [place] [address] HEPATITIS C ANTIBODYon 03-10 HCV Ab IA Ql Not detected Normal Not Detected [facility] Comment on above: Result Comment: Deirdre ents with DETECTED Hepatitis C Ab results should have a new specimen submitted for supplemental testing with a Hepatitis C Quantitative RNA assay (viral load), if clinically indicated. Performed By: #### L [id number], [id number] #### Drycleaner: JESSI BARRAGAN ([id number]) [facility]) [address] [place] [address] HIV 1+2 Ab+HIV1 p24 Ag IA Ql Ordered By: Marielos Rucker on 03-10-2023 Interpretation and review of laboratory results Normal [facility] HIV-1 and HIV-2 Antigen-Anti body ScreenOrdered By: Marielos Rucker on 03-10-2023 HIV 1+2 Ab+HIV1 p24 Ag IA Ql Non-Reactive Nonreactive [facility] Comment on above: The specimen was non -reactive for HIV-1 and HIV-2 antibodies and p24 antigen using an FDA-cleared 4th generation HIV test. Based on this non-reactive screen result, further reflexive testing was not indicated and was, therefore, not performed. HIV1,2 COMBO ANTIGEN-ANTIBOD Y SCREENon 03-10-2023 HIV 1,2 COMBO ANTIGEN/ANTIBODY Non-Reactive Normal Nonreactive [facility] Comment on above: Result Comment: The specimen was non-reactive for HIV-1 and HIV-2 antibodies and p24 antigen using an FDA-cleared 4th generation HIV test. Based on this non-reactive screen result, further reflexive testing was not indicated and was, therefore, not performed. Performed By: #### L [id number], [id number], [id number] #### Drycleaner: JESSI BARRAGAN ([id number]) [facility] ([facility]) [address] [place] [address] HSV TYPE 1 AND TYPE 2 IGG AN TIBODIESon 03-10-2023 HERPES SIMPLEX VIRUS 1 IGG 1.4 Abl High <=0.9 [facility] Comment on above: Performed By: #### L [id number], [id number], [id number] #### Drycleaner: JESSI BARRAGAN ([id number]) [facility] ([facility]) [address] [place] [address] HERPES SIMPLEX VIRUS 2 IGG <0.2 Normal <=0.9 [facility] Comment on above: Result Comment: RIZWAN Saab COMMENTS: Interpretive Information Results equal or greater than 1.1 Jane = POSITIVE Results between 0.9 Jane - 1.0 Jane = EQUIVOCAL Results less than 0.9 Jane = NEGATIVE Antibody detection is not the preferred method for diagnosing HSV infection. For patients presenting with presumed acute infection with HSV, a clinical specimen (eg, oral, dermal or genital lesion) should be sampled and submitted for HSV PCR. Serum specimens collected too early in the course of infection may not have detectable levels of HSV IgG. In cases of suspected early disease, a repeat serum specimen should be collected 14 to 21 days later and submitted for testing. This is a qualitative test. The numeric antibody index reported does not correspond to antibody concentrations. Performed By: #### L [id number], [id number], [id number] #### Drycleaner: JESSI BARRAGAN ([id number]) [facility] ([facility]) [address] [place] [address] HSV Type 1 and Type 2 IgG [facility] 03[facility]23 HSV 1 IgG 1.4 High [facility] HSV 2 IgG [facility] Interpretation and review of laboratory results Abnormal [facility] Interpretive Information Results equal or greater than 1.1 Jane = POSITIVE Results between 0.9 Jane - 1.0 Jane = EQUIVOCAL Results less than 0.9 Jane = NEGATIVE Antibody detection is not the preferred method for diagnosing HSV infection. For patients presenting with presumed acute infection with HSV, a clinical specimen (eg, oral, dermal or genital lesion) should be sampled and submitted for HSV PCR. Serum specimens collected too early in the course of infection may not have detectable levels of HSV IgG. In cases of suspected early disease, a repeat serum specimen should be collected 14 to 21 days later and submitted for testing. This is a qualitative test. The numeric antibody index reported does not correspond to antibody concentrations. [facility] Hepatitis B surface antigeno n 03-10-2023 HBV surface Ag IA Ql Not detected Not Detected [facility] Hepatitis C antibodyon 03-10 HCV Ab IA Ql Not detected Not Detected [facility] Comment on above: Patients with DETECT ED Hepatitis C Ab results should have a new specimen submitted for supplemental testing with a Hepatitis C Quantitative RNA assay (viral load), if clinically indicated. No Panel Informationon 03-10 Interpretation and review of laboratory results Normal [facility] Office Visiton 03-10-2023 Follow-up visit [id number] [facility] 1985 F Date Provider Department Center 03/10/2023 [id number] DIETRICH [facility] OB Offi Family History Problem Relation Age of Onset Heart disease Father Heart disease Mother Stroke Paternal Grandfather Clotting disorder Mother Hypertension Mother Diabetes Paternal Grandmother Heart disease Paternal Grandfather Other Mother Comments: MS Obesity Mother Hyperlipidemia Paternal Grandmother Stroke Father Hypertension Father Diabetes Mother Heart disease Paternal Grandmother Family Status - Relation Status Age at Father Mother Paternal Grandfather Paternal Grandmother Level of Service:427[address] [place] PERIODIC PREVENTIVE MED EST PATIENT 18-39 YRS Reason for Visit and Comments: Annual Exam [83] - Std, HIV screening, discuss boils that re/o, abd/pelv pain. Normal [facility] Progress Noteon 03-10-2023 Progress Note Karishma Pickard 38 y.o. HPI: The patient [...] or Uterine Cancer: Yes breast cancer, discussed Sandro at previous visit Preventative Health Testing: Date [...] Left 02/26/2022 ABLATION COLPOCLESIS Right 07/29/2022 APPENDECTOMY 2009 [facility] CHOLECYSTECTOMY 07/21/2017 dr. brooks / [facility] ELBOW SURGERY 06/02/2017 g[facility] - ULNAR NERVE HYSTEROSCOPY 09/01/2021 Biopsy endometrium, IUD insertion TONSILLECTOMY (HISTORICAL) 2010 [facility] Review of Systems REVIEW OF SYSTEMS: Gen: denies weight loss, fatigue, fevers/chills GI: denies change in appetite, bloating, pain, lumps/masses, change in bowel/bladder habits Urinary: denies dysuria, frequency, hematuria, incontinence : see HPI Objective: Ht 5' 7 (1.702 m) Wt (!) 334 lb (152 kg) LMP 03/09/2023 (Approximate) BMI 52.31 kg/m? Physical Exam Gen: normal appearance, NAD Neuro: [...] per week. 2. Maintain yearly visits with [facility] for well-woman exam. 3. Establish care with [...] Standing Expiration Date: 03/10/2024 HSV Type 1 a (more content not included)... Normal [facility] RPRon 03-10-2023 Reagin Ab RPR Ql (S) Non-Reactive Nonreactive [facility] RPR WITH REFLEX QUANTon 02-26 RPR Non-Reactive Normal Nonreactive [facility] Comment on above: Performed By: #### L [id number], [id number] #### Drycleaner: JESSI BARRAGAN ([id number]) [facility] ([facility]) [address] [place] [address] Reagin Ab RPR Ql (S)on 03-10 Interpretation and review of laboratory results Normal [facility] HEMOGLOBIN A1C (POC)on 03-03 HbA1c (Bld) [Mass fraction] 9.6 % Abnormal 4.2 - 5.6 % [facility] Glucose Glucometer (dC) [M ass/Vol]Ordered By: Richard Heart on 01-28-2023 Glucose [Mass/Vol] 193 mg/dL 74-106 [facility] Comment on above: MANAGEMENT OF PATIEN T CARE PER NURSING PROTOCOL Absolute lymphocyte countOrd ered By: Richard Heart on 01-27-2023 Lymphocytes Auto (Unsp spec) [#/Vol] 7.01 10*3/uL 0.83-4.51 [facility] Basophil percentageOrdered B y: Richard Heart on 01-27-2023 Basophils/100 WBC (Bld) 0.9 % 0-1 [facility] Chloride [Moles/Vol] 106 mmol/L 98-107 [facility] Eosinophils/100 WBC (Bld) 0.0 % 0-5 [facility] Glucose [Mass/Vol] 297 mg/dL 74-106 [facility] Comment on above: Glucose result great er than or equal to 200 mg/dLsuggests DIABETES MELLITUS per A.D.A. criteria. Neutrophils (Bld) [#/Vol] 8.3 10*3/uL 2.0-7.7 [facility] Neutrophils/100 WBC (Bld) 50.3 % 47-70 [facility] Potassium [Moles/Vol] 3.7 mmol/L 3.5-5.1 [facility] Comment on above: Slight Hemolysis, Re sult may be falsely increased. Sodium [Moles/Vol] 138 mmol/L 136-145 [facility] WBC (Bld) [#/Vol] 16.4 10*3/uL 4.4-11.0 [facility] Basophil percentage 0 SEEN /hpf 0-5 [facility] Bilirubin Test strip Ql (U)O rdered By: Richard Heart on 01-27-2023 Bilirubin Ql (U) Negative Negative [facility] Blood erythrocytes count (nu mber/volume)Ordered By: Richard Heart on 01-27-2023 RBC (Bld) [#/Vol] 5.26 10*6/uL 4.2-5.4 [facility] Blood hemoglobin measurement (mass/volume)Ordered By: Richard Heart on 01-27-2023 Hemoglobin (Bld) [Mass/Vol] 16.1 g/dL 12.0-15.0 [facility] Blood lymphocytes/100 leukoc ytesOrdered By: Richard Heart on 01-27-2023 Lymphocytes/100 WBC (Bld) 42.8 % 19-41 [facility] Blood manual differential co mment interpretation (narrative result)Ordered By: Richard Heart on 01-27-2023 Manual differential comment Delio (Bld) [Interp] SCANNED [facility] Comment on above: LYMPHOCYTOSIS NOTED Blood monocytes/100 leukocyt esOrdered By: Richard Heart on 01-27-2023 Monocytes/100 WBC (Bld) 5.3 % 0-10 [facility] Blood platelet mean volumeOr dered By: Richard Heart on 01-27-2023 Platelet mean volume (Bld) [Entitic vol] 10.0 fL 6.2-12.0 [facility] Determination of erythrocyte mean corpuscular volume (MCV)Ordered By: Richard Heart on 01-27-2023 MCV (RBC) [Entitic vol] 88.8 fL 81-99 [facility] Glucose Glucometer (dC) [M ass/Vol]Ordered By: Richard Heart on 01-27-2023 Glucose [Mass/Vol] 330 mg/dL 74-106 [facility] Comment on above: MANAGEMENT OF PATIEN T CARE PER NURSING PROTOCOL Hematocrit Auto (Bld) [Volum e fraction]Ordered By: Richard Heart on 01-27-2023 Hematocrit (Bld) [Volume fraction] 46.7 % 37-47 [facility] Ketones Test strip Ql (U)Ord ered By: Richard Heart on 01-27-2023 Ketones Ql (U) 15 mg/dl Negative [facility] Laboratory - Chemistry and C hemistry - challengeOrdered By: Richard Heart on 01-27-2023 CO2 [Moles/Vol] 24.0 mmol/L 21.0-32.0 [facility] Urea nitrogen/Creatinine [Mass ratio] 12.2 mg/mg 10-20 [facility] Laboratory - Hematology and Cell countsOrdered By: Richard Heart on 01-27-2023 Erythrocyte distribution width (RBC) [Entitic vol] 39.7 fL 35.1-43.9 [facility] Erythrocyte distribution width (RBC) [Ratio] 12.2 % 11.6-14.6 [facility] Immature granulocytes/100 WBC (Bld) 0.700 % 0.0-0.9 [facility] Comment on above: IG% - Immature Granu locytes (promyelocytes, myelocytes and metamyelocytes) > 1% indicates that a LEFT SHIFT is Present. MCH (RBC) [Entitic mass] 30.6 pg 27.0-32.0 [facility] Nucleated RBC/100 WBC (Bld) [Ratio] 0 % 0-5 [facility] MCHC Auto (RBC) [Mass/Vol]Or dered By: Richard Heart on 01-27-2023 MCHC (RBC) [Mass/Vol] 34.5 g/dL 32-36 [facility] Mucus LM Ql (Urine sed)Order ed By: Richard Heart on 01-27-2023 Mucus Ql (Urine sed) 0 SEEN /hpf [facility] Nitrite Test strip Ql (U)Ord ered By: Richard Heart on 01-27-2023 Nitrite Ql (U) Negative Negative [facility] No Panel InformationOrdered By: Richard Heart on 01-27-2023 Estimated Creatinine Clearance Calc 92.23 ml/min [facility] Estimated GFR (MDRD) Amer 101 mL/min >60 [facility] Comment on above: GFR Calc Estimated GFR (MDRD) Non-Af Amer 84 mL/min >60 [facility] Comment on above: Non- GFR Calc Reactive Lymphocytes 1+ [facility] Platelets bldOrdered By: Fabrizio Heart on 01-27-2023 Platelets (Bld) [#/Vol] 409 10*3/uL 150-450 [facility] Protein Test strip Ql (U)Ord ered By: Richard Heart on 01-27-2023 Protein Ql (U) 15 mg/dl Negative [facility] Serum or plasma calcium arun urement (mass/volume)Ordered By: Richard Heart on 01-27-2023 Calcium [Mass/Vol] 9.6 mg/dL 8.5-10.1 [facility] Serum or plasma creatinine m easurement (mass/volume)Ordered By: Richard Heart on 01-27-2023 Creatinine [Mass/Vol] 0.82 mg/dL 0.55-1.02 [facility] Comment on above: The validity of the calculated GFR & GFRAA in patients over 70 years has not been determined. Clinical correlation is essential. Serum or plasma urea nitroge n measurement (mass/volume)Ordered By: Richard Heart on 01-27-2023 Urea nitrogen [Mass/Vol] 10 mg/dL 7-18 [facility] Squamous epithelial cells de tection in urine sediment by light microscopyOrdered By: Richard Heart on 01-27-2023 Epithelial cells.squamous LM Ql (Urine sed) 0 SEEN /hpf 5-10 [facility] Thin prep Papanicolaou smear with manual screeningOrdered By: Richard Heart on 01-27-2023 Thin prep Papanicolaou smear with manual screening 8 5-15 [facility] Urine blood detectionOrdered By: Richard Heart on 01-27-2023 RBC Ql (U) Negative Negative [facility] RBC Ql (U) 0 SEEN /hpf 0-5 [facility] Urine clarityOrdered By: Fabrizio Heart on 01-27-2023 Clarity (U) Clear Clear [facility] Urine color determinationOrd ered By: Richard Heart on 01-27-2023 Color (U) Yellow Yellow [facility] Urine glucose detectionOrder ed By: Richard Heart on 01-27-2023 Glucose Ql (U) 1000 mg/dl Normal [facility] Urine leukocyte esterase det ection by dipstickOrdered By: Richard Heart on 01-27-2023 Leukocyte esterase Test strip Ql (U) Negative Negative [facility] Urine pHOrdered By: Richard Heart on 01-27-2023 pH (U) 6.5 [pH] 5.0 - 8.0 [facility] Urine sediment bacteria coun t by microscopy (number/high power field)Ordered By: Richard Heart on 01-27-2023 Bacteria LM.HPF (Urine sed) [#/Area] RARE /hpf None Seen [facility] Urine specific gravity measu rementOrdered By: Richard Heart on 01-27-2023 Specific gravity (U) [Rel density] 1.015 1.002-1.030 [facility] Urobilinogen Auto test strip Ql (U)Ordered By: Richard Heart on 01-27-2023 Urobilinogen Ql (U) Normal mg/dl Normal [facility] XR Chest PA and Lateralon IMPRESSION: No acute radiographic abnormality. Pbx Installer: NICHOLAS Transcribe Date/Time: Dec 08 2022 10:42A Dictated by : NI ARANGO MD This examination was interpreted and the report reviewed and electronically signed by: NI ARANGO MD on Dec 08 2022 10:43AM [facility] DIVISION OF RADIOLOGY * * *Final Report* * * DATE OF EXAM: Dec 08 2022 10:40AM WOX 5291 - XR CHEST 2V FRONTAL/LAT / PROCEDURE REASON: Pleuritic chest pain * * * * Physician Interpretation * * * * EXAMINATION: CHEST RADIOGRAPH (2 VIEW FRONTAL & LATERAL) CLINICAL HISTORY: Pleuritic chest pain MQ: XC2_6 EXAM DATE/TIME: 12/08/2022 10:40 AM COMPARISON: Chest x-ray on 03/24/2021 RESULT: Lines, tubes, and devices: None. Lungs and pleura: No consolidation. No lung mass. No pleural effusion. No pneumothorax. Cardiomediastinal silhouette: Normal cardiomediastinal silhouette. Bones and soft tissues: Unremarkable. DIVISION OF RADIOLOGY Provider, [facility] - 12/08/2022 * * *Final Report* * * DATE OF EXAM: Dec 08 2022 10:40AM WOX 5291 - XR CHEST 2V FRONTAL/LAT / PROCEDURE REASON: Pleuritic chest pain * * * * Physician Interpretation * * * * EXAMINATION: CHEST RADIOGRAPH (2 VIEW FRONTAL & LATERAL) CLINICAL HISTORY: Pleuritic chest pain MQ: XC2_6 EXAM DATE/TIME: 12/08/2022 10:40 AM COMPARISON: Chest x-ray on 03/24/2021 RESULT: Lines, tubes, and devices: None. Lungs and pleura: No consolidation. No lung mass. No pleural effusion. No pneumothorax. Cardiomediastinal silhouette: Normal cardiomediastinal silhouette. Bones and soft tissues: Unremarkable. IMPRESSION IMPRESSION: No acute radiographic abnormality. Pbx Installer: NICHOLAS Transcribe Date/Time: Dec 08 2022 10:42A Dictated by : NI ARANGO MD This examination was interpreted and the report reviewed and electronically signed by: NI ARANGO MD on Dec 08 2022 10:43AM EST [facility] Radiology Study observation (narrative) [facility] XR Chest PA and LateralOrder ed By: [facility] Provider on 12-08-2022 [facility] Glucose Glucometer (BldC) [M ass/Vol]Ordered By: Dr. Leavitt on 09-14-2022 Glucose [Mass/Vol] 154 mg/dL 74-106 [facility] Comment on above: MANAGEMENT OF PATIEN T CARE PER NURSING PROTOCOL Laboratory - Chemistry and C hemistry - challengeOrdered By: Dr. Dyer on 09-14-2022 HCG ( test) Ql (U) Negative [facility] Comment on above: Very dilute urine sp ecimens, as indicated by a low specificgravity, may not contain product sales representative levels of hCG. If is still suspected, a first morning urinespecimen should be collected 48 hours later and tested. Glucose Glucometer (BldC) [M ass/Vol]Ordered By: Dr. Leavitt on 07-13-2022 Glucose [Mass/Vol] 151 mg/dL 74-106 [facility] Comment on above: MANAGEMENT OF PATIEN T CARE PER NURSING PROTOCOL Laboratory - Chemistry and C hemistry - challengeOrdered By: Dr. Garner on 07-13-2022 HCG ( test) Ql (U) Negative [facility] Comment on above: Very dilute urine sp ecimens, as indicated by a low specificgravity, may not contain product sales representative levels of hCG. If is still suspected, a first morning urinespecimen should be collected 48 hours later and tested. Glucose Glucometer (BldC) [M ass/Vol]Ordered By: Dr. Leavitt on 05-04-2022 Glucose [Mass/Vol] 143 mg/dL 74-106 [facility] Comment on above: MANAGEMENT OF PATIEN T CARE PER NURSING PROTOCOL Laboratory - Chemistry and C hemistry - challengeOrdered By: Dr. Garner on 05-04-2022 HCG ( test) Ql (U) Negative [facility] Comment on above: Very dilute urine sp ecimens, as indicated by a low specificgravity, may not contain product sales representative levels of hCG. If is still suspected, a first morning urinespecimen should be collected 48 hours later and tested. Absolute lymphocyte countOrd ered By: Dr. Ortiz on 04-08-2022 Lymphocytes Auto (Unsp spec) [#/Vol] 4.58 10*3/uL 0.83-4.51 [facility] Basophil percentageOrdered B y: Dr. Ortiz on 04-08-2022 Basophils/100 WBC (Bld) 0.6 % 0-1 [facility] Chloride [Moles/Vol] 110 mmol/L 98-107 [facility] Eosinophils/100 WBC (Bld) 0.1 % 0-5 [facility] Glucose [Mass/Vol] 150 mg/dL 74-106 [facility] Comment on above: Fasting Glucose resu lt greater than or equal to 126 mg/dL suggests DIABETES MELLITUS per A.D.A. criteria. Neutrophils (Bld) [#/Vol] 7.1 10*3/uL 2.0-7.7 [facility] Neutrophils/100 WBC (Bld) 56.0 % 47-70 [facility] Potassium [Moles/Vol] 4.0 mmol/L 3.5-5.1 [facility] Sodium [Moles/Vol] 140 mmol/L 136-145 [facility] WBC (Bld) [#/Vol] 12.6 10*3/uL 4.4-11.0 [facility] Blood erythrocytes count (nu mber/volume)Ordered By: Dr. Ortiz on 04-08-2022 RBC (Bld) [#/Vol] 4.81 10*6/uL 4.2-5.4 [facility] Blood hemoglobin measurement (mass/volume)Ordered By: Dr. Ortiz on 04-08-2022 Hemoglobin (Bld) [Mass/Vol] 14.7 g/dL 12.0-15.0 [facility] Blood lymphocytes/100 leukoc ytesOrdered By: Dr. Ortiz on 04-08-2022 Lymphocytes/100 WBC (Bld) 36.3 % 19-41 [facility] Blood monocytes/100 leukocyt esOrdered By: Dr. Ortiz on 04-08-2022 Monocytes/100 WBC (Bld) 6.5 % 0-10 [facility] Blood platelet mean volumeOr dered By: Dr. Ortiz on 04-08-2022 Platelet mean volume (Bld) [Entitic vol] 9.4 fL 6.2-12.0 [facility] Determination of erythrocyte mean corpuscular volume (MCV)Ordered By: Dr. Ortiz on 04-08-2022 MCV (RBC) [Entitic vol] 92.9 fL 81-99 [facility] Hematocrit Auto (Bld) [Volum e fraction]Ordered By: Dr. Ortiz on 04-08-2022 Hematocrit (Bld) [Volume fraction] 44.7 % 37-47 [facility] Laboratory - Chemistry and C hemistry - challengeOrdered By: Dr. Ortiz on 04-08-2022 CO2 [Moles/Vol] 25.0 mmol/L 21.0-32.0 [facility] Urea nitrogen/Creatinine [Mass ratio] 15.1 mg/mg 10-20 [facility] Laboratory - Hematology and Cell countsOrdered By: Dr. Ortiz on 04-08-2022 Erythrocyte distribution width (RBC) [Entitic vol] 45.9 fL 35.1-43.9 [facility] Erythrocyte distribution width (RBC) [Ratio] 13.3 % 11.6-14.6 [facility] Immature granulocytes/100 WBC (Bld) 0.500 % 0.0-0.9 [facility] Comment on above: IG% - Immature Granu locytes (promyelocytes, myelocytes and metamyelocytes) > 1% indicates that a LEFT SHIFT is Present. MCH (RBC) [Entitic mass] 30.6 pg 27.0-32.0 [facility] Nucleated RBC/100 WBC (Bld) [Ratio] 0 % 0-5 [facility] MCHC Auto (RBC) [Mass/Vol]Or dered By: Dr. Ortiz on 04-08-2022 MCHC (RBC) [Mass/Vol] 32.9 g/dL 32-36 [facility] No Panel InformationOrdered By: Dr. Ortiz on 04-08-2022 D-Dimer Quantitative (PE/DVT) 0.30 FEU/ug/m 0.27-0.49 [facility] Comment on above: NORMAL D-Dimer level (<0.50) indicates no DVT or PE. Estimated Creatinine Clearance Calc 127.26 ml/min [facility] Estimated GFR (MDRD) Amer 147 mL/min >60 [facility] Comment on above: GFR Calc Estimated GFR (MDRD) Non-Af Amer 122 mL/min >60 [facility] Comment on above: Non- GFR Calc Troponin I High Sensitivity 4 pg/mL 3.0-54.0 [facility] Comment on above: Please Note: New Nat t Units and Gender Specific Reference Ranges. For more information see Policy Stat Procedure [place] High Sensitivity Troponin (TNIH) and attachments. Platelets bldOrdered By: Dr. Ortiz on 04-08-2022 Platelets (Bld) [#/Vol] 354 10*3/uL 150-450 [facility] Serum or plasma calcium arun urement (mass/volume)Ordered By: Dr. Ortiz on 04-08-2022 Calcium [Mass/Vol] 9.2 mg/dL 8.5-10.1 [facility] Serum or plasma creatinine m easurement (mass/volume)Ordered By: Dr. Ortiz on 04-08-2022 Creatinine [Mass/Vol] 0.60 mg/dL 0.55-1.02 [facility] Comment on above: The validity of the calculated GFR & GFRAA in patients over 70 years has not been determined. Clinical correlation is essential. Serum or plasma urea nitroge n measurement (mass/volume)Ordered By: Dr. Ortiz on 04-08-2022 Urea nitrogen [Mass/Vol] 9 mg/dL 7-18 [facility] Thin prep Papanicolaou smear with manual screeningOrdered By: Dr. Ortiz on 04-08-2022 Thin prep Papanicolaou smear with manual screening 5 5-15 [facility] Echo Dobutamine Stress Echo w/wo Conton 03-31-2022 Echo Dobutamine Stress Echo w/wo Cont Patient Name: KARISHMA PICKARD Ultrasound ACCESSION EXAM DATE/TIME PROCEDURE ORDERING PROVIDER [id number] 03/31/2022 09:17 EDT Echo Dobutamine Stress [id number] -RK MCCLAIN Echo w/wo Cont Reason For Exam (Echo Dobutamine Stress Echo w/wo Cont) chest pain, diabetes Report STRESS ECHOCARDIOGRAM Dobutamine PATIENT: Karishma Pickard STUDY DATE: 03/31/2022 : 1985 AGE: 37 HT/WT: 170.2 cm (67 151.5 kg in) (333.3 lb) GENDER: F BP: 150 / 100 LOCATION: [facility] PATIENT Outpatient [facility] STATUS: *ORDERING PHYSICIAN: * Rk Mcclain *SUPERVISING PHYSICIAN: * Sb, *RN: * Vaughn Nevarez *READING PHYSICIAN: * Maurice Arriaga, *WHITE SOURER: Antonia Fajardo MD [facility] -- INDICATIONS: Chest Pain. CP,DM. -- HISTORY: Dyslipidemia. Asthma. Family history of cardiovascular disease. Tobacco use current HILDA,Depression,, GERD Hypertension treated Diabetic non insulin dependent Medications: Clonidine (Catapres). Lisinopril (Zestril). Rosuvastatin (Crestor). Pantoprazole (Protonix). Buspar. Allergies: Elavil, Cymbalta, Duloxetine, Gabapentin allergy. Patient is NPO per policy. -- CONCLUSIONS SUMMARY: 1. Left ventricle: Systolic function is normal by the biplane method of disks. The estimated ejection fraction is 64%. 2. Stress ECG conclusions: The stress ECG is normal. 3. Normal study after pharmacologic stress. -- STUDY DATA: Stress echocardiogram. Procedure: Initial setup. A baseline ECG was recorded. Surface ECG leads and blood pressure measurements were monitored. Total intravenous fluids received during the test were 125 ml. Image quality was suboptimal. The study was technically limited due to body habitus. Intravenous imaging enhancement (Definity) was administered to opacify the chamber. Definity lot #: [id number]. Definity dose administered: 5 ml. Definity wasted: 5 ml. Dobutamine stress test. Dobutamine was administered by Ultrasound Report intravenous infusion at an initial rate of 10 mcg/kg/min; the rate was advanced to a final rate of 20 mcg/kg/min. Heart rate response was augmented by the addition of low level exercise. The infusion was terminated after achieving the target heart rate. Transthoracic stress echocardiography. Images were captured at baseline, low dose, peak dose, and recovery. Limited 2D and color flow Doppler images were acquired and archived for permanent storage and are available for subsequent review. Study status: Routine. Patient status: Outpatient. Pre pain assessment is 0 out of 10. Post pain assessment is 0 out of 10. Location: Echo laboratory. Consent: The procedure was reviewed with the patient and the patient voices understanding. Study completion: The patient tolerated the procedure well. There were no complications. Discharge: Discharge instructions given The patient was discharged to homewhile ambulatory. -- FINDINGS LEFT VENTRICLE: The cavity size is normal. Wall thickness is moderately increased. Systolic function is normal by the biplane method of disks. The estimated ejection fraction is 64%. There are no regional wall motion abnormalities. RIGHT VENTRICLE: The cavity size is normal. Systolic function is normal. Right ventricular systolic pressure is within the normal range. MITRAL VALVE: Structurally normal valve. Doppler: There is no regurgitation. AORTIC VALVE: Structurally normal valve. Trileaflet. Doppler: There is no regurgitation. Dimensionless index: 0.89. The valve area by the velocity-time integral method is 3.2 cm^2. The valve area index by the velocity-time integral method is 1.1 cm^2/m^2. The mean systolic gradient is 3 mm Hg. The peak systolic gradient is 6 mm Hg. The peak systolic velocity is 1.2 m/sec. TRICUSPID VALVE: Structurally normal valve. Doppler: There is trivial, less than 1+ regurgitation. AORTA: The aorta is normal. PERICARDIUM: There is no pericardial effusion. BASELINE ECG: Normal. STRESS PROTOCOL: + -+---+ +--- +-------- + +Stage +HR +BP +Symptoms +Comments+ + -+---+ +--- +-------- + +Baseline +103+150/100 (117)+No symptoms. +PO2 96% + + -+---+ +--- +-------- + +Dobutamine 10 ug/kg/min+110+147/100 (116)+No symptoms. +--------+ + -+---+ +--- +-------- + +Peak stress +162+187/93 (124) +Chest discomfort.+PO2 96% + + (more content not included)... Normal [facility] Echo Stress Test - Dobutamin mercedes 03-31-2022 STRESS ECHOCARDIOGRA M Dobutamine PATIENT: Karishma Pickard STUDY DATE: 03/31/2022 : 1985 AGE: 37 HT/WT: 170.2 cm (67 151.5 kg in) (333.3 lb) GENDER: F BP: 150 / 100 LOCATION: [facility] PATIENT Outpatient [facility] STATUS: *ORDERING PHYSICIAN: Rk Vee *SUPERVISING PHYSICIAN: Antonia Basurto, *RN: * Vaughn Nevarez *READING PHYSICIAN: * Maurice Arriaga, *WHITE SOURER: Antonia NAIDU -- INDICATIONS: Chest Pain. CP,DM. -- HISTORY: Dyslipidemia. Asthma. Family history of cardiovascular disease. Tobacco use current HILDA,Depression,, GERD Hypertension treated Diabetic non insulin dependent Medications: Clonidine (Catapres). Lisinopril (Zestril). Rosuvastatin (Crestor). Pantoprazole (Protonix). Buspar. Allergies: Elavil, Cymbalta, Duloxetine, Gabapentin allergy. Patient is NPO per policy. -- CONCLUSIONS SUMMARY: 1. Left ventricle: Systolic function is normal by the biplane method of disks. The estimated ejection fraction is 64%. 2. Stress ECG conclusions: The stress ECG is normal. 3. Normal study after pharmacologic stress. -- STUDY DATA: Stress echocardiogram. Procedure: Initial setup. A baseline ECG was recorded. Surface ECG leads and blood pressure measurements were monitored. Total intravenous fluids received during the test were 125 ml. Image quality was suboptimal. The study was technically limited due to body habitus. Intravenous imaging enhancement (Definity) was administered to opacify the chamber. Definity lot #: [id number]. Definity dose administered: 5 ml. Definity wasted: 5 ml. Dobutamine stress test. Dobutamine was administered by intravenous infusion at an initial rate of 10 mcg/kg/min; the rate was advanced to a final rate of 20 mcg/kg/min. Heart rate response was augmented by the addition of low level exercise. The infusion was terminated after achieving the target heart rate. Transthoracic stress echocardiography. Images were captured at baseline, low dose, peak dose, and recovery. Limited 2D and color flow Doppler images were acquired and archived for permanent storage and are available for subsequent review. Study status: Routine. Patient status: Outpatient. Pre pain assessment is 0 out of 10. Post pain assessment is 0 out of 10. Location: Echo laboratory. Consent: The procedure was reviewed with the patient and the patient voices understanding. Study completion: The patient tolerated the procedure well. There were no complications. Discharge: Discharge instructions given The patient was discharged to homewhile ambulatory. -- FINDINGS LEFT VENTRICLE: The cavity size is normal. Wall thickness is moderately increased. Systolic function is normal by the biplane method of disks. The estimated ejection fraction is 64%. There are no regional wall motion abnormalities. RIGHT VENTRICLE: The cavity size is normal. Systolic function is normal. Right ventricular systolic pressure is within the normal range. MITRAL VALVE: Structurally normal valve. Doppler: There is no regurgitation. AORTIC VALVE: Structurally normal valve. Trileaflet. Doppler: There is no regurgitation. Dimensionless index: 0.89. The valve area by the velocity-time integral method is 3.2 cm^2. The valve area index by the velocity-time integral method is 1.1 cm^2/m^2. The mean systolic gradient is 3 mm Hg. The peak systolic gradient is 6 mm Hg. The peak systolic velocity is 1.2 m/sec. TRICUSPID VALVE: Structurally normal valve. Doppler: There is trivial, less than 1+ regurgitation. AORTA: The aorta is normal. PERICARDIUM: There is no pericardial effusion. BASELINE ECG: Normal. STRESS PROTOCOL: + -+---+ +--- +-------- + +Stage +HR +BP +Symptoms +Comments+ + -+---+ +--- +-------- + +Baseline +103+150/100 (117)+No symptoms. +PO2 96% + + -+---+ +--- +-------- + +Dobutamine 10 ug/kg/min+110+147/100 (116)+No symptoms. +--------+ + -+---+ +--- +-------- + +Peak stress +162+187/93 (124) +Chest discomfort.+PO2 96% + + -+---+ +--- (more content not included)... [facility] CARDIOLOGY Maurice Arriaga MD - 03/31/2022 STRESS ECHOCARDIOGRAM Dobutamine PATIENT: Karishma Pickard STUDY DATE: 03/31/2022 : 1985 AGE: 37 HT/WT: 170.2 cm (67 151.5 kg in) (333.3 lb) GENDER: F BP: 150 / 100 LOCATION: [facility] PATIENT Outpatient [facility] STATUS: *ORDERING PHYSICIAN: * Rk Mcclain *SUPERVISING PHYSICIAN: * Sb, *RN: * Vaughn Nevarez *READING PHYSICIAN: * Maurice Arriaga, *WHITE SOURER: * Dominique NAIDU -- INDICATIONS: Chest Pain. CP,DM. -- HISTORY: Dyslipidemia. Asthma. Family history of cardiovascular disease. Tobacco use current HILDA,Depression,, GERD Hypertension treated Diabetic non insulin dependent Medications: Clonidine (Catapres). Lisinopril (Zestril). Rosuvastatin (Crestor). Pantoprazole (Protonix). Buspar. Allergies: Elavil, Cymbalta, Duloxetine, Gabapentin allergy. Patient is NPO per policy. -- CONCLUSIONS SUMMARY: 1. Left ventricle: Systolic function is normal by the biplane method of disks. The estimated ejection fraction is 64%. 2. Stress ECG conclusions: The stress ECG is normal. 3. Normal study after pharmacologic stress. -- STUDY DATA: Stress echocardiogram. Procedure: Initial setup. A baseline ECG was recorded. Surface ECG leads and blood pressure measurements were monitored. Total intravenous fluids received during the test were 125 ml. Image quality was suboptimal. The study was technically limited due to body habitus. Intravenous imaging enhancement (Definity) was administered to opacify the chamber. Definity lot #: [id number]. Definity dose administered: 5 ml. Definity wasted: 5 ml. Dobutamine stress test. Dobutamine was administered by intravenous infusion at an initial rate of 10 mcg/kg/min; the rate was advanced to a final rate of 20 mcg/kg/min. Heart rate response was augmented by the addition of low level exercise. The infusion was terminated after achieving the target heart rate. Transthoracic stress echocardiography. Images were captured at baseline, low dose, peak dose, and recovery. Limited 2D and color flow Doppler images were acquired and archived for permanent storage and are available for subsequent review. Study status: Routine. Patient status: Outpatient. Pre pain assessment is 0 out of 10. Post pain assessment is 0 out of 10. Location: Echo laboratory. Consent: The procedure was reviewed with the patient and the patient voices understanding. Study completion: The patient tolerated the procedure well. There were no complications. Discharge: Discharge instructions given The patient was discharged to homewhile ambulatory. -- FINDINGS LEFT VENTRICLE: The cavity size is normal. Wall thickness is moderately increased. Systolic function is normal by the biplane method of disks. The estimated ejection fraction is 64%. There are no regional wall motion abnormalities. RIGHT VENTRICLE: The cavity size is normal. Systolic function is normal. Right ventricular systolic pressure is within the normal range. MITRAL VALVE: Structurally normal valve. Doppler: There is no regurgitation. AORTIC VALVE: Structurally normal valve. Trileaflet. Doppler: There is no regurgitation. Dimensionless index: 0.89. The valve area by the velocity-time integral method is 3.2 cm^2. The valve area index by the velocity-time integral method is 1.1 cm^2/m^2. The mean systolic gradient is 3 mm Hg. The peak systolic gradient is 6 mm Hg. The peak systolic velocity is 1.2 m/sec. TRICUSPID VALVE: Structurally normal valve. Doppler: There is trivial, less than 1+ regurgitation. AORTA: The aorta is normal. PERICARDIUM: There is no pericardial effusion. BASELINE ECG: Normal. STRESS PROTOCOL: + -+---+ +--- +-------- + +Stage +HR +BP +Symptoms +Comments+ + -+---+ +--- +-------- + +Baseline +103+150/100 (117)+No symptoms. +PO2 96% + + -+---+ +--- +-------- + +Dobutamine 10 ug/kg/min+110+147/100 (116)+No symptoms. +--------+ + -+---+ +--- +-------- + +Peak stress +162+187/93 (124) +Chest discomfort.+PO2 96% + + -+---+ +--- +-------- + +Recovery; 2 min +139+162/83 (109) +Subsiding. +--------+ + -+---+ +--- +-------- + +Late recovery +110+139/93 (108) +No symptoms. +Po2 96 (more content not included)... [facility] Work Phone: Echo Stress Test - Dobutamin eOrdered By: Maurice Arriaga on 03-31-2022 [facility] Work Phone: Beta hCG serum qualon 2021 Beta HCG ( test) Ql Negative [facility] Work Phone: Glucose Glucometer (BldC) [M ass/Vol]on 01-26-2022 Glucose [Mass/Vol] 222 mg/dL 74-106 [facility] Work Phone: Comment on above: MANAGEMENT OF PATIKALINA T CARE PER NURSING PROTOCOL MRI Lumbar Spine w/oon 12-03 MRI Lumbar Spine w/o Clinical Informatio n: Patient complains of low back pain radiates to both legs and weakness left leg worse post on 10 years. Study Technique: MRI lumbar spine was performed with Sagittal T1, T2 and STIR images. Axial T1 and T2 images were obtained. Comparisons: None. Findings: For purposes of numbering lumbar vertebral bodies on this study the most inferior normal diameter disc space will be considered L5-S1. No transitional vertebral body segments. Plain film radiographs would be required to confirm nomenclature used in this report, particularly prior to any spine intervention. Vertebral body height: No compression deformities. Disc height and Disc signal: Normal Alignment: No spondylolisthesis. Straightening is noted. Bone marrow signal: No reconversion Conus medullaris:Ends at L1-2, no abnormal finding seen. Paraspinal soft tissues: No abnormal inflammation or lesion detected. Other findings: No evidence of any focal lesion noted. Axial Imaging: L1-2: No significant disc bulge is seen. Facet articulations are intact. The neural foramina are patent. No evidence of canal stenosis at this level. L2-3: No significant disc bulge is seen. Facet articulations are intact. The neural foramina are patent. No evidence of canal stenosis at this level. L3-4: No significant disc bulge is seen. Facet articulations are intact. The neural foramina are patent. No evidence of canal stenosis at this level. L4-5: Mild posterior bulge is seen indenting thecal sac. Facet joint arthropathy and ligamentum flavum hypertrophy is noted. The neural foramina are patent. No evidence of canal stenosis at this level. L5-S1: No significant disc bulge is seen. Facet articulations are intact. The neural foramina are patent. No evidence of canal stenosis at this level. Impressions: 1. Straightening of the normal lumbar lordosis, correlate for spasm/strain. 2. Mild posterior bulge at L4-5indenting the ventral thecal sac. 3. Patent central canal and foramina. No herniations. Referring physician: Please call [phone] if you would like to speak with the radiologist about this report. 1103 Normal [facility] Automation Operator Glucose Glucometer (BldC) [M ass/Vol]on 11-10-2021 Glucose [Mass/Vol] 243 mg/dL 74-106 [facility] Work Phone: Comment on above: MANAGEMENT OF PATIEN T CARE PER NURSING PROTOCOL Absolute lymphocyte counton 10-16-2021 Lymphocytes Auto (Unsp spec) [#/Vol] 4.82 10*3/uL 0.83-4.51 [facility] Work Phone: Basophil percentageon 2021 Basophil percentage 5-10 SEEN /hpf 0-5 [facility] Work Phone: Basophils/100 WBC (Bld) 0.6 % 0-1 [facility] Work Phone: Chloride [Moles/Vol] 104 mmol/L 98-107 [facility] Work Phone: Eosinophils/100 WBC (Bld) 0.0 % 0-5 [facility] Work Phone: Glucose [Mass/Vol] 213 mg/dL 74-106 [facility] Work Phone: Comment on above: Glucose result great er than or equal to 200 mg/dLsuggests DIABETES MELLITUS per A.D.A. criteria. Neutrophils (Bld) [#/Vol] 9.8 10*3/uL 2.0-7.7 [facility] Work Phone: Neutrophils/100 WBC (Bld) 63.4 % 47-70 [facility] Work Phone: Potassium [Moles/Vol] 3.8 mmol/L 3.5-5.1 [facility] Work Phone: Sodium [Moles/Vol] 137 mmol/L 136-145 [facility] Work Phone: WBC (Bld) [#/Vol] 15.5 10*3/uL 4.4-11.0 [facility] Work Phone: [phone] Bilirubin Test strip Ql (U)o n 10-16-2021 Bilirubin Ql (U) Negative Negative [facility] Work Phone: Blood erythrocytes count (nu mber/volume)on 10-16-2021 RBC (Bld) [#/Vol] 5.02 10*6/uL 4.2-5.4 [facility] Work Phone: [phone] Blood hemoglobin measurement (mass/volume)on 10-16-2021 Hemoglobin (Bld) [Mass/Vol] 15.0 g/dL 12.0-15.0 [facility] Work Phone: [phone] Blood lymphocytes/100 leukoc yteson 10-16-2021 Lymphocytes/100 WBC (Bld) 31.2 % 19-41 [facility] Work Phone: [phone] Blood monocytes/100 leukocyt eson 10-16-2021 Monocytes/100 WBC (Bld) 4.3 % 0-10 [facility] Work Phone: Blood platelet adequacy dete ction by light microscopyon 10-16-2021 Platelets LM Ql (Bld) ADEQUATE ADEQ [facility] Work Phone: Blood platelet mean volumeon 10-16-2021 Platelet mean volume (Bld) [Entitic vol] 9.1 fL 6.2-12.0 [facility] Work Phone: [phone] Blood polychromasia detectio n by light microscopyon 10-16-2021 Polychromasia LM Ql (Bld) 1+ [facility] Work Phone: Determination of erythrocyte mean corpuscular volume (MCV)on 10-16-2021 MCV (RBC) [Entitic vol] 90.2 fL 81-99 [facility] Work Phone: Hematocrit Auto (Bld) [Volum e fraction]on 10-16-2021 Hematocrit (Bld) [Volume fraction] 45.3 % 37-47 [facility] Work Phone: [phone] Ketones Test strip Ql (U)on 10-16-2021 Ketones Ql (U) Negative Negative [facility] Work Phone: [phone] Laboratory - Chemistry and C hemistry - challengeon 10-16-2021 CO2 [Moles/Vol] 28.0 mmol/L 21.0-32.0 [facility] Work Phone: [phone] Urea nitrogen/Creatinine [Mass ratio] 14.1 mg/mg 10-20 [facility] Work Phone: [phone] Laboratory - Hematology and Cell countson 10-16-2021 Erythrocyte distribution width (RBC) [Entitic vol] 42.4 fL 35.1-43.9 [facility] Work Phone: [phone] Erythrocyte distribution width (RBC) [Ratio] 13.1 % 11.6-14.6 [facility] Work Phone: [phone] Immature granulocytes/100 WBC (Bld) 0.500 % 0.0-0.9 [facility] Work Phone: [phone] Comment on above: IG% - Immature Granu locytes (promyelocytes, myelocytes and metamyelocytes) > 1% indicates that a LEFT SHIFT is Present. MCH (RBC) [Entitic mass] 29.9 pg 27.0-32.0 [facility] Work Phone: [phone] Nucleated RBC/100 WBC (Bld) [Ratio] 0 % 0-5 [facility] Work Phone: [phone] MCHC Auto (RBC) [Mass/Vol]on 10-16-2021 MCHC (RBC) [Mass/Vol] 33.1 g/dL 32-36 [facility] Work Phone: [phone] Mucus LM Ql (Urine sed)on Mucus Ql (Urine sed) 0 SEEN /hpf [facility] Work Phone: [phone] Nitrite Test strip Ql (U)on 10-16-2021 Nitrite Ql (U) Negative Negative [facility] Work Phone: [phone] Panel Informationon 10-16 Estimated Creatinine Clearance Calc 108.57 ml/min [facility] Work Phone: Estimated GFR (MDRD) Amer 121 mL/min >60 [facility] Work Phone: Comment on above: GFR Calc Estimated GFR (MDRD) Non-Af Amer 100 mL/min >60 [facility] Work Phone: Comment on above: Non- GFR Calc Platelets bldon 10-16-2021 Platelets (Bld) [#/Vol] 388 10*3/uL 150-450 [facility] Work Phone: Protein Test strip Ql (U)on 10-16-2021 Protein Ql (U) Negative Negative [facility] Work Phone: [phone] Serum or plasma calcium arun urement (mass/volume)on 10-16-2021 Calcium [Mass/Vol] 9.4 mg/dL 8.5-10.1 [facility] Work Phone: [phone] Serum or plasma creatinine m easurement (mass/volume)on 10-16-2021 Creatinine [Mass/Vol] 0.71 mg/dL 0.55-1.02 [facility] Work Phone: Comment on above: The validity of the calculated GFR & GFRAA in patients over 70 years has not been determined. Clinical correlation is essential. Serum or plasma urea nitroge n measurement (mass/volume)on 10-16-2021 Urea nitrogen [Mass/Vol] 10 mg/dL 7-18 [facility] Work Phone: [phone] epithelial cells de tection in urine sediment by light microscopyon 10-16-2021 Epithelial cells.squamous LM Ql (Urine sed) 0-5 SEEN /hpf 5-10 [facility] Work Phone: [phone] Thin prep Papanicolaou smear with manual screeningon 10-16-2021 Thin prep Papanicolaou smear with manual screening 5 5-15 [facility] Work Phone: [phone] Urine blood detectionon 09-27 RBC Ql (U) 250 /ul Negative [facility] Work Phone: [phone] RBC Ql (U) 5-10 SEEN /hpf 0-5 [facility] Work Phone: Urine clarityon 10-16-2021 Clarity (U) Clear Clear [facility] Work Phone: Urine color determinationon 10-16-2021 Color (U) Yellow Yellow [facility] Work Phone: Urine glucose detectionon Glucose Ql (U) Normal mg/dl Normal [facility] Work Phone: Urine leukocyte esterase det ection by dipstickon 10-16-2021 Leukocyte esterase Test strip Ql (U) 25 /ul Negative [facility] Work Phone: Urine pHon 10-16-2021 pH (U) 6.0 [pH] 5.0 - 8.0 [facility] Work Phone: Urine sediment bacteria coun t by microscopy (number/high power field)on 10-16-2021 Bacteria LM.HPF (Urine sed) [#/Area] 1 /[HPF] None Seen [facility] Work Phone: Urine specific gravity measu rementon 10-16-2021 Specific gravity (U) [Rel density] 1.015 1.002-1.030 [facility] Work Phone: Urobilinogen Auto test strip Ql (U)on 10-16-2021 Urobilinogen Ql (U) Normal mg/dl Normal [facility] Work Phone: Absolute lymphocyte counton 10-11-2021 Lymphocytes Auto (Unsp spec) [#/Vol] 4.77 10*3/uL 0.83-4.51 [facility] Work Phone: Comment on above: Previous reported re sult: 5.23 X10^3/uLEdited by: DESTINY on 10/11/21:2300 AMENDED REPORT 10/11/21 230 Absolute Lymph previously reported as: 5.23 H X10^3/uL Basophil percentageon 2021 Basophil percentage 10-25 SEEN /hpf 0-5 [facility] Work Phone: Basophil percentage [facility] Work Phone: [phone] Comment on above: Previous reported re sult: 59.8 %Edited by: DESTINY on 10/11/21:2258 AMENDED REPORT 10/11/212258 NEUT% previously reported as: 59.8 % Previous reported re sult: 0.0 %Edited by: DESTINY on 10/11/21:2258 AMENDED REPORT 10/11/212258 EO% previously reported as: 0.0 % Previous reported re sult: 0.7 %Edited by: DESTINY on 10/11/21:2258 AMENDED REPORT 10/11/212258 BASO% previously reported as: 0.7 % Chloride [Moles/Vol] 107 mmol/L 98-107 [facility] Work Phone: Glucose [Mass/Vol] 253 mg/dL 74-106 [facility] Work Phone: Comment on above: Glucose result great er than or equal to 200 mg/dLsuggests DIABETES MELLITUS per A.D.A. criteria. Neutrophils (Bld) [#/Vol] 9.6 10*3/uL 2.0-7.7 [facility] Work Phone: [phone] Comment on above: Previous reported re sult: 9.2 X10^3/uLEdited by: DESTINY on 10/11/21:2299 AMENDED REPORT 10/11/212299 Absolute Neut previously reported as: 9.2 H X10^3/uL Potassium [Moles/Vol] 4.0 mmol/L 3.5-5.1 [facility] Work Phone: [phone] Sodium [Moles/Vol] 136 mmol/L 136-145 [facility] Work Phone: WBC (Bld) [#/Vol] 15.4 10*3/uL 4.4-11.0 [facility] Work Phone: Beta hCG serum qualon 2021 Beta HCG ( test) Ql Negative [facility] Work Phone: Bilirubin Test strip Ql (U)o n 10-11-2021 Bilirubin Ql (U) Negative Negative [facility] Work Phone: Blood eosinophils/100 leukoc yteson 10-11-2021 Eosinophils/100 WBC (Bld) 3 % 0-5 [facility] Work Phone: Blood erythrocytes count (nu mber/volume)on 10-11-2021 RBC (Bld) [#/Vol] 4.78 10*6/uL 4.2-5.4 [facility] Work Phone: Blood hemoglobin measurement (mass/volume)on 10-11-2021 Hemoglobin (Bld) [Mass/Vol] 14.3 g/dL 12.0-15.0 [facility] Work Phone: Blood lymphocytes/100 leukoc yteson 10-11-2021 Lymphocytes/100 WBC (Bld) [employer] [facility] Work Phone: [phone] Comment on above: Previous reported re sult: 34.1 %Edited by: DESTINY on 10/11/21:2258 AMENDED REPORT 10/11/212258 LY% previously reported as: 34.1 % Lymphocytes/100 WBC (Bld) 31 % 19-41 [facility] Work Phone: Blood manual differential co mment interpretation (narrative result)on 10-11-2021 Manual differential comment Delio (Bld) [Interp] SCANNED [facility] Work Phone: Blood metamyelocytes/100 jh kocyteson 10-11-2021 Metamyelocytes/100 WBC (Bld) 1 % 0-1 [facility] Work Phone: Blood monocytes/100 leukocyt eson 10-11-2021 Monocytes/100 WBC (Bld) [employer] [facility] Work Phone: Comment on above: Previous reported re sult: 5.0 %Edited by: DESTINY on 10/11/21:2258 AMENDED REPORT 10/11/212258 MONO% previously reported as: 5.0 % Monocytes/100 WBC (Bld) 3 % 0-10 [facility] Work Phone: [phone] Blood platelet adequacy dete ction by light microscopyon 10-11-2021 Platelets LM Ql (Bld) ADEQUATE ADEQ [facility] Work Phone: [phone] Blood platelet mean volumeon 10-11-2021 Platelet mean volume (Bld) [Entitic vol] 9.4 fL 6.2-12.0 [facility] Work Phone: [phone] Blood segmented neutrophils/ 100 leukocyteson 10-11-2021 Segmented neutrophils/100 WBC (Bld) 62 % 47-70 [facility] Work Phone: Culture, urineon 10-11-2021 Bacteria identified Cx Nom (U) Positive [facility] Work Phone: Determination of erythrocyte mean corpuscular volume (MCV)on 10-11-2021 MCV (RBC) [Entitic vol] 87.9 fL 81-99 [facility] Work Phone: [phone] Hematocrit Auto (Bld) [Volum e fraction]on 10-11-2021 Hematocrit (Bld) [Volume fraction] 42.0 % 37-47 [facility] Work Phone: [phone] Ketones Test strip Ql (U)on 10-11-2021 Ketones Ql (U) 5 mg/dl Negative [facility] Work Phone: [phone] Laboratory - Chemistry and C hemistry - challengeon 10-11-2021 CO2 [Moles/Vol] 23.0 mmol/L 21.0-32.0 [facility] Work Phone: [phone] Urea nitrogen/Creatinine [Mass ratio] 19.0 mg/mg 10-20 [facility] Work Phone: [phone] Laboratory - Hematology and Cell countson 10-11-2021 Erythrocyte distribution width (RBC) [Entitic vol] 42.2 fL 35.1-43.9 [facility] Work Phone: [phone] Erythrocyte distribution width (RBC) [Ratio] 13.0 % 11.6-14.6 [facility] Work Phone: MCH (RBC) [Entitic mass] 29.9 pg 27.0-32.0 [facility] Work Phone: MCHC Auto (RBC) [Mass/Vol]on 10-11-2021 MCHC (RBC) [Mass/Vol] 34.0 g/dL 32-36 [facility] Work Phone: Mucus LM Ql (Urine sed)on Mucus Ql (Urine sed) 0 SEEN /hpf [facility] Work Phone: Nitrite Test strip Ql (U)on 10-11-2021 Nitrite Ql (U) Negative Negative [facility] Work Phone: No Panel Informationon 10-11 Estimated Creatinine Clearance Calc 132.91 ml/min [facility] Work Phone: Estimated GFR (MDRD) Amer 153 mL/min >60 [facility] Work Phone: Comment on above: GFR Calc Estimated GFR (MDRD) Non-Af Amer 126 mL/min >60 [facility] Work Phone: Comment on above: Non- GFR Calc Immature Granulocyte % (Auto) [employer]PER [facility] Work Phone: Comment on above: Previous reported re sult: 0.400 %Edited by: DESTINY on 10/11/21:2258 AMENDED REPORT 10/11/212258 IM GRAN % previously reported as: 0.400 % IG% - Immature Granulocytes (promyelocytes, myelocytes and metamyelocytes) > 1% indicates that a LEFT SHIFT is Present. Nucleated Red Blood Cells % [employer]EEPER [facility] Work Phone: [phone] Comment on above: Previous reported re sult: 0 %Edited by: DESTINY on 10/11/21:2299 AMENDED REPORT 10/11/212299 NRBC, FLAGGED previously reported as: 0 % Platelets bldon 10-11-2021 Platelets (Bld) [#/Vol] 359 10*3/uL 150-450 [facility] Work Phone: Protein Test strip Ql (U)on 10-11-2021 Protein Ql (U) 15 mg/dl Negative [facility] Work Phone: RBC morphologyon 10-11-2021 RBC morphology finding Nom (Bld) NORM C+C NORMAL NORM C&C [facility] Work Phone: Serum or plasma calcium arun urement (mass/volume)on 10-11-2021 Calcium [Mass/Vol] 8.6 mg/dL 8.5-10.1 [facility] Work Phone: Serum or plasma creatinine m easurement (mass/volume)on 10-11-2021 Creatinine [Mass/Vol] 0.58 mg/dL 0.55-1.02 [facility] Work Phone: Comment on above: The validity of the calculated GFR & GFRAA in patients over 70 years has not been determined. Clinical correlation is essential. Serum or plasma urea nitroge n measurement (mass/volume)on 10-11-2021 Urea nitrogen [Mass/Vol] 11 mg/dL 7-18 [facility] Work Phone: Squamous epithelial cells de tection in urine sediment by light microscopyon 10-11-2021 Epithelial cells.squamous LM Ql (Urine sed) 0-5 SEEN /hpf 5-10 [facility] Work Phone: Thin prep Papanicolaou smear with manual screeningon 10-11-2021 Thin prep Papanicolaou smear with manual screening 6 5-15 [facility] Work Phone: [phone] Total cell counton 2 Cells counted Molgen (Bld/Tiss) [#] 100 MANUAL DIFF [facility] Work Phone: Urine blood detectionon 09-26 RBC Ql (U) 50 /ul Negative [facility] Work Phone: RBC Ql (U) 0 SEEN /hpf 0-5 [facility] Work Phone: Urine clarityon 10-11-2021 Clarity (U) Cloudy Clear [facility] Work Phone: Urine color determinationon 10-11-2021 Color (U) Yellow Yellow [facility] Work Phone: Urine glucose detectionon Glucose Ql (U) 1000 mg/dl Normal [facility] Work Phone: Urine leukocyte esterase det ection by dipstickon 10-11-2021 Leukocyte esterase Test strip Ql (U) 25 /ul Negative [facility] Work Phone: Urine pHon 10-11-2021 pH (U) 5.0 [pH] 5.0 - 8.0 [facility] Work Phone: Urine sediment bacteria coun t by microscopy (number/high power field)on 10-11-2021 Bacteria LM.HPF (Urine sed) [#/Area] 0 /[HPF] None Seen [facility] Work Phone: Urine specific gravity measu rementon 10-11-2021 Specific gravity (U) [Rel density] 1.030 1.002-1.030 [facility] Work Phone: Urobilinogen Auto test strip Ql (U)on 10-11-2021 Urobilinogen Ql (U) 1 mg/dl Normal [facility] Work Phone: Glucose,Bedsideon 09-01-2021 Glucose [Mass/Vol] 143 mg/dL High 70-100 [facility] Comment on above: Result Comment: Test performed by glucose meter. Results may be 10%-15% lower than serum/plasma values. (CLIA ID [id number]) Performed By: #### B GLU #### [employer] [address] [place] [address] HCG,Urine Qualon 09-01-2021 Beta HCG ( test) Ql (U) Negative Normal Negative [facility] [employer] Comment on above: Result Comment: Plea se note: Very dilute urine specimens, as indicated by a low specific gravity, may not contain product sales representative levels of hCG. If is still suspected, a first morning urine specimen should be collected 48 hours later and tested. is the most common reason for HCG in urine, although choriocarcinoma, hydatidiform mole, and certain nontropho- blastic malignancies also result in detectable urinary HCG levels. Sensitivity = 20mIU/mL. Performed By: #### H UR #### [facility] [address] [place] [address] Op Noteon 09-01-2021 Op Note Operative Note Department of Obstetrics and Gynecology Patient: Karishma Pickard : 1985 Date of Procedure: 09/01/21 Pre-operative Diagnosis: 36 y.o. female AUB Post-operative Diagnosis: Same, endometrial polyp Procedure: Hysteroscopy dilation and curettage with Mirena IUD placement Surgeon: Salome Alicia MD Fabric Cutter(s): Salome Alicia MD Anesthesia: general via LMA Findings: Endometrial polyp Total IV fluids/Blood products: 500 ml crystalloid Urine Output: n/a Estimated blood loss: minimal Drains: none Specimens: [employer] Instrument and Sponge Count: Correct x 2 No Complications: None apparent Condition: stable, transferred to post anesthesia recovery Indication and Consent: 36 y.o. F presented to the office and was diagnosed with AUB in the outpatient office. She was consented for the procedure and understood the risks and desired to proceed. Procedure: The patient was brought to the operating room, general anesthesia was administered without difficulty. She was placed in dorsal lithotomy position, prepped and draped in the normal sterile fashion. A time out was performed. A weighted speculum was placed in the vagina. A right angle retractor was placed anteriorly to allow visualization of the cervix. The cervix was grasped w/ a single tooth tenaculum. The cervix was progressively dilated to allow placement of a 5 mm hysteroscope. Uterus sounded to 7mm. After the hysteroscope was inserted into the uterine cavity, endometrial polyp appreciated. A sharp curettage was performed for a moderate amount of pink tissue. MIrena IUD placed in normal fashion. The procedure was deemed compete. The single tooth tenaculum was removed from the cervix. The tenaculum sites were hemostatic with a minimal amount of pressure. All instrumentation was removed from the vagina. Ulmer, sponges and instruments were counted times two and noted to be correct. The patient was awakened from anesthesia and brought to the recovery room in stable condition. Salome Alicia MD 09/01/2021, 12:43 PM Normal [facility] POCT GlucoseOrdered By: Stan Ulrich on 09-01-2021 Glucose [Mass/Vol] 143 mg/dL High 70 - 100 mg/dL [facility] Work Phone: Comment on above: Test performed by gl ucose meter. Results may be 10%-15% lower than serum/plasma values. (CLIA ID [id number]) Interpretation and review of laboratory results Abnormal [facility] Work Phone: [facility] Work Phone: POCT Glucoseon 09-01-2021 Test Performed by [facility], [address] LAB , urine LABon 09-01 Beta HCG ( test) Ql (U) Negative Negative NA [facility] Comment on above: Please note: Very di lute urine specimens, as indicated by a low specific gravity, may not contain product sales representative levels of hCG. If is still suspected, a first morning urine specimen should be collected 48 hours later and tested. is the most common reason for HCG in urine, although choriocarcinoma, hydatidiform mole, and certain nontropho- blastic malignancies also result in detectable urinary HCG levels. Sensitivity = 20mIU/mL. Test Performed by [facility], [address] LAB EDE HUNTERYANELY ALVES 3on 2 [facility] Work Phone: Radiology Study observation (narrative) [facility] Work Phone: Surgical Pathologyon 022 Surgical Pathology [id number] [facility] PATHOLOGY AND LABORATORY MEDICINE [address] [place] [address] Fax - FINAL SURGICAL PATHOLOGY REPORT ___ NAME: KARISHMA PICKARD : 1985 36 [address] ARROYO NO.: [id number] LOCATION: [facility] 07 PROCEDURE 09/01/2021 DATE: SURGEON: SALOME ALICIA MD RECEIVED 09/01/2021 DATE: ATTENDING: SALOME ALICIA MD REPORT DATE: 09/03/2021 COPIES TO: ___ DIAGNOSIS: ENDOMETRIUM, CURETTAGE - FRAGMENTS OF WEAKLY PROLIFERATIVE ENDOMETRIUM WITH STROMAL BREAKDOWN AND ENDOMETRIAL POLYP UNREMARKABLE ENDOCERVICAL AND SQUAMOUS EPITHELIUM SMT/SMT Signature> S LEYLA ROSS M.D. ___ CLINICAL INFORMATION: N93.9. SPECIMEN: ENDOMETRIAL CURETTINGS ___ GROSS DESCRIPTION: Received in formalin labeled endometrium curettings are multiple fragments of pink-chin to red-brown soft tissue and hemorrhagic material aggregating to 2.2 x 1.4 x 0.3 cm. All submitted in two cassettes. BSC/LS3 Disclaimer: The following statement applies to all immunohistochemistry, in situ hybridization, molecular studies, and immunofluorescence testing. The use of one or more reagents in the above tests is regulated as an analyte specific reagent (ASR). These tests were developed and their performance characteristics determined by the clinical laboratories of [facility]. They have not been cleared by the US Food and Drug Administration (FDA). The FDA has determined that such clearance or approval is not necessary. All the above immunostains were performed on paraffin embedded tissue. Appropriate positive and negative controls (where applicable) were run in parallel with the patient's specimen; these controls showed expected staining pattern, with acceptable intensity of staining. Immunohistochemical assays have not been validated on decalcified tissues. Results should be interpreted with caution given the raised possibility of false negativity on decalcified specimens. Case reviewed at [place] [address] [place] [address]. DEPARTMENT OF PATHOLOGY AND LABORATORY MEDICINE [place], [place] [address] [email or web address] s Normal [facility] XR Chest PA and Lateralon IMPRESSION: No acute radiographic abnormality. Pbx Installer: NICHOLAS Transcribe Date/Time: Mar 24 2021 11:44A Dictated by : TAMI GERARDO MD This examination was interpreted and the report reviewed and electronically signed by: TAMI GERARDO MD on Mar 24 2021 11:47AM [facility] DIVISION OF RADIOLOGY * * *Final Report* * * DATE OF EXAM: Mar 24 2021 11:42AM WOX 5291 - XR CHEST 2V FRONTAL/LAT / PROCEDURE REASON: Cough * * * * Physician Interpretation * * * * EXAMINATION: CHEST RADIOGRAPH (2 VIEW FRONTAL & LATERAL) CLINICAL HISTORY: Cough MQ: XC2_6 EXAM DATE/TIME: 03/24/2021 11:42 AM COMPARISON: No relevant prior studies available. RESULT: Lines, tubes, and devices: None. Lungs and pleura: No consolidation. No lung mass. No pleural effusion. No pneumothorax. Cardiomediastinal silhouette: Normal cardiomediastinal silhouette. Bones and soft tissues: Unremarkable. DIVISION OF RADIOLOGY Provider, [facility] - 03/24/2021 * * *Final Report* * * DATE OF EXAM: Mar 24 2021 11:42AM WOX 5291 - XR CHEST 2V FRONTAL/LAT / PROCEDURE REASON: Cough * * * * Physician Interpretation * * * * EXAMINATION: CHEST RADIOGRAPH (2 VIEW FRONTAL & LATERAL) CLINICAL HISTORY: Cough MQ: XC2_6 EXAM DATE/TIME: 03/24/2021 11:42 AM COMPARISON: No relevant prior studies available. RESULT: Lines, tubes, and devices: None. Lungs and pleura: No consolidation. No lung mass. No pleural effusion. No pneumothorax. Cardiomediastinal silhouette: Normal cardiomediastinal silhouette. Bones and soft tissues: Unremarkable. IMPRESSION IMPRESSION: No acute radiographic abnormality. Pbx Installer: PSCB Transcribe Date/Time: Mar 24 2021 11:44A Dictated by : TAMI GERARDO MD This examination was interpreted and the report reviewed and electronically signed by: TAMI GERARDO MD on Mar 24 2021 11:47AM EST [facility] Radiology Study observation (narrative) [facility] XR Chest PA and LateralOrder ed By: Ccf Provider on 03-24-2021 [facility] US ABDOMEN COMPLETEon 2019 Patient Name: KARISHMA BETHEA ---Ultrasound--- Exam Date/Time 03/08/2020 08:05:00 EDT Exam US Abdomen Complete Ordering Physician OLIVE PRUITT Accession Number [id number] CPT4 Codes 76041 () Reason For Exam pain after eating [...] on --- Final --- Dictating Physician: MD FRANCISCO, [facility] Signed Date and Time: 03/08/2020 9:02 am Signed by: MD SINGH AHMAD Transcribed Date and Time: 03/08/2020 9:03 [place], [place] Ede Jacob Incoming Radiology Results From [facility] - 03/08/2020 9:04 AM EDT Patient Name: KARISHMA PICKARD ---Ultrasound--- Exam Date/Time 03/08/2020 08:05:00 EDT Exam US Abdomen Complete Ordering Physician OLIVE PRUITT Accession Number [id number] CPT4 Codes 24685 () Reason For Exam pain after eating [...] AHMAD Transcribed Date and Time: 03/08/2020 9:03 [facility] HA CRPon 12-27-2017 C reactive protein (CRP) 2.40 MG/DL High 0.00-0.32 [facility] [place] Comment on above: Order Comment: Lawrence dumont: Nell Performed By: #### L 550.26710 ####[facility] [address] [place], [place] [address]Bz# [phone] Surgical Pathologyon 018 Surgical Pathology [id number] [facility] DEPART[facility] OF [facility] PATHOLOGY AND LABORATORY MEDICINE [address] [place] [address] FINAL SURGICAL PATHOLOGY REPORT NAME: KARISHMA PICKARD N [id number].O.B.: 1985 32 Y F BILLING NO.: [id number]: PAC1O 1PAC 59 PROCEDURE 07/21/2017 DATE:SURGEON: CHRISSY BROOKS MD RECEIVED 07/21/2017 DATE:ATTENDING: CHRISSY BROOKS MD REPORT DATE: 07/22/2017 COPIES TO: DIAGNOSIS:QUOC LUGO, CHOLECYSTECTOMY - CHRONIC CHOLECYSTITIS WITHCHOLELITHIASISJAW/0 BALDOMERO SIMON M.D. CLINICAL INFORMATION: CholelithiasisSPECIMEN: GALLBLADDER GROSS DESCRIPTION:Deonjose rReceived in formalin is an intact gallbladder measuring 11.0 x 4.0 x3.5 cm. The serosal surface is pink-mccloud to yellow-mccloud. Upontransection, the lumen of the gallbladder contains thick, mucoid,dark-green bile and multiple calculi which aggregate to approximately6.0 x 6.0 cm and measure up to approximately 1.2 cm in greatestdimension. The mucosa of the gallbladder is pink-chin and slightlyyellow-green bile stained. The wall of the gallbladder averages 0.2 cmin thickness and contains no nodules. No calculi are seen within thecystic duct. Multiple product sales representative sections are submitted in a singlecassette. (bits ss, 1) JCK/MCDDisclaimer: The following statement applies to allimmunohistochemistry , in situ hybridization, molecular studies, andimmunofluorescence testing.The use of one or more reagents in the above tests is regulated as ananalyte specific reagent (ASR). These tests were developed and theirperformance characteristics determined by the clinical laboratories [facility]. They have not been cleared by the US Food and DrugAdministration (FDA). The FDA has determined that such clearance orapproval is not necessary.All the above immunostains were performed on paraffin embedded tissue.Appropriate positive and negative controls (where applicable) were runin parallel with the patient's specimen; these controls showed expectedstaining pattern, with acceptable intensity of staining.Immunohistoche mical assays have not been validated on decalcifiedtissues. Results should be interpreted with caution given the raisedpossibility of false negativity on decalcified specimens.Professional Performing Location: [facility] [address] [place] [address]. DEPARTMENT OF PATHOLOGY AND LABORATORY MEDICINE [place], [place] [address] Normal [facility] Comment on above: Performed By: #### S UR ####Performing Lab is in report Glucoseon 07-14-2017 Glucose mass conc 87 mg/dL Normal 70-100 [facility] Comment on above: Performed By: #### G LUC3 ####[place] [address] [place] [id number] US Abdomen Completeon 2016 US Abdomen Complete Patient Name: KARISHMA BETHEA Ultrasound Exam Date/Time 06/07/2017 09:16:06 EST Exam US Abdomen Complete Ordering Physician Warren AVILA PARI Saab Accession Number [id number] CPT4 Codes 87940 () Reason For Exam Calculus of gallbladder [...] ANTHONY Transcribed Date and Time: 06/07/2017 11:28 [facility] ANES Denise 06-02-2017 ANES POST HNO ID: [id number]: Keith WymanService: AnesthesiologyAuthor Type: AnesthesiologistType: Anesthesia PostOpFiled: 06/02/2017 1:14 PMNote Text:POST ANESTHESIA EVALUATION NOTESERVICE DATE: 06/02/2017SERVICE TIME: 1130DOB: 1985Vitals: Temp: 36.9 ?C (98.4 ?F) 06/02/1711BP: 111/59 117/59 113/59 123/59 06/02/1711Pulse: 78 68 79 76 06/02/1711Resp: 16 16 16 16 114 06/02/1711SpO2: 99% 98% 99% 98%Validated Vital Signs: YesPOST ANES STATUS: No apparent anesthetic complications. The patient isappropriately hydrated with stable respiratory and cardiovascular status.Patient has safe and adequate airway control. The patient has appropriatepain relief and no significant post operative nausea or vomiting. Thepatient has achieved baseline mental status.Further assessment by Anesthesia Service: NoneOther Remarks:SIGNATURE: Keith Wyman MD PATIENT NAME: Karishma PickardDATE: June 02, 2017 : 1:14 PM PAGER/CONTACT #: [phone] [facility] ANES PREOPon 06-02-2017 ANES PREOP HNO ID: [id number]: Keith WymanService: AnesthesiologyAuthor Type: AnesthesiologistType: Anesthesia PreOpFiled: 06/02/2017 7:56 AMNote Text: ANESTHESIOLOGY DAY OF SURGERY NOTESERVICE DATE: 06/02/2017SERVICE TIME: 7:56 AMDOB: 1985Procedure(s) (LRB):DECOMPRESSION NERVE ULNAR ELBOW (Left)Surgeon(s):Popeye SalasEstimated body mass index is 55.6 kg/(m2) as calculated from thefollowing: Height as of this encounter: 170.2 cm (5' 7). Weight as of this encounter: 161 kg (355 lb).Most recent hematocrit and potassium results:Hematocrit 42.3 05/28/2017Potassium 3.6 05/28/2017ANES DOS/PREOP NOTE: Vitals: 107638Isxtis: (!) 161 kg (355 lb)Height: 170.2 cm (5' 7)ACTIVE PROBLEM LISTOsa (Obstructive Sleep Apnea)Morbid Obesity (Hcc)FibromyalgiaDepres sionUlnar Neuropathy At Elbow of Left Upper ExtremityGerd [...] (ANCEF) 3 g INTRAVENOUS Pre-Op OnceSondra (Pa) VetovitzAllergies:ALLER GIESAllergen Reactions- Cymbalta [Duloxetin* Other: See Comments Made [...] contains updated information obtained within 48 hours ofSurgery/Procedure.SIG NATURE: Keith Wyman MD PATIENT NAME: Karishma PickardDATE: June 02, 2017 : 7:56 AM CSN: [id number] [facility] NURSING PROGon 06-02-2017 NURSING PROG HNO ID: [id number]: Denise (Rn) Rodney, BALDOervice: (none)Author Type: Registered NurseType: Nursing Progress NoteFiled: 06/02/2017 8:01 AMNote Text: Nursing Progress NotePatient Name: Karishma PickardMRN: [id number] Location: HI Surgery/HI Surgery Pt ready for OR. Preg test negative, skin warm and dry. Left arm coveredwith wrap for alerting purposes. Dr. Wyman to bedside to talk withpt. Pt laughing and joking. No concerns.This note was completed by: Denise Arvizu, RUPALI [facility] OPERATIVE NOon 06-02-2017 OPERATIVE NO HNO ID: [id number]: Richard Norman: Orthopaedic SurgeryAuthor Type: PhysicianType: Operative ReportFiled: 06/02/2017 10:46 AMNote Text:OPERATIVE/PROCEDUR E REPORTLOG ID: [id number]/Procedur e Date: 06/02/2017Incision/Proce dure Start Time: 9:45 AMIncision Close/Procedure End Time: 10:29 AMSurgeon(s)/Procedural ist(s) and Fabric Cutter(s):Surgeon(s) and Role: * Richard Salas - PrimaryRegistered Nurse Supervisor Body Assembly: Jeanie (Rn) JULIETTE Sharprocedure(s):Left ulnar nerve decompression at the elbow.Anesthesia: LMA [...] to the post anesthetic area in stable conditionPre-Op/Pre-Pro cedure Diagnosis: 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]Post-Op/Post-Pr ocedure Diagnosis: 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 Patient to use [facility] Bedside Delivery - YES2. If fax, patient would like us to fax prescriptions to Pharmacy [facility]choice a. Pharmacy: b. Location: c. Phone:3. Insurance card on file - YES4. Credit card for payment - YESPHARMACY BEDSIDE DELIVERY SERVICEPatient Name: Karishma MorrisN: [id number] marked outpatient medications were Filled at: [place] and delivered tothe patient's bedside to pharm p/uMedication ListSTART taking these medicationsX HYDROcodone-acetaminoph en 5-325 mg per tabletCommonly known as: NORCOTake [...] ZOFRAN ( HYDROCHLORIDE) 4 mg tabletGeneric drug: ondansetronArabellaana Aden (Small Stock Facer)PAGER: [phone] 2016 12:12 PM Normal [facility] NURSING PROGon 05-31-2017 NURSING PROG HNO ID: [id number]: Brook (Rn) BALDO Guerreroervice: (none)Author Type: Registered NurseType: Nursing Progress NoteFiled: 06/01/2017 2:13 PMNote Text:PACC Nurse Progress NoteHistory AND Physical:PACC Visit Date: 05/28/17 at [place] PACCOriginal HANDP Date: 05/28/17Labs Within Last 6 Months:CBC: Date 05/28/17 cbc/diff- wbc elevated-provider requested notify surgeon--faxed to office.,Platelets elevated 537BMP/CMP: Date 05/28/17 bmp- BS 109, K+ 3.6Imaging Within Last 12 Months:N/ACardiac Testing:N/ALast Menstrual Period:LMP Date: 05/09/17Postmenopausal >1yr: No,S/P Hysterectomy: NoBMI 55.6Risk Assessment:N/AAnesthesi a Review:HX HILDA- no cpapNarrative:N/APre-op Considerations:N/AChart Check:IN PROGRESS Surgeon (faxed ) notified of elevated WBC of 15.2 perprovider request. Provider indicated pt denied illness at time of PACCand WBC has steadily increased over past 7 yrs.Rosemarie Shoemaker 2016 4:33 PM06/01/17 2 pm Spoke with Naomie at Dr Salas office this am and she willmessage Dr Salas/ KONSTANTIN Ragsdale of elevated WBC's. Response fromKONSTANTIN López--Chronic leukocytosis, previous cbc'd with elevated WBC's.She has consulted with hematology in the past. As long as she isasymptomatic we can proceed. Chart check complete RUPALI Drummond [facility] HOSPon 05-17-2017 HOSP Patient:Luci Pickard RN: Height:5' 7(1.702 m)Weight:355 lb (161.027 kg)Outpatient Medications as of 06/02/17:ondansetron (ZOFRAN, HYDROCHLORIDE,) 4 mg tablethydrOXYzine HCl (ATARAX) 25 mg tablettraZODone (DESYREL) 50 mg tabletergocalciferol, vitamin D2, (VITAMIN D) 50,000 unit capsulefamotidine (PEPCID) 40 mg tabletAdmission/Clinic Administered Medications as of 06/02/17:lactated ringers infusionceFAZolin 3 g in sterile water 30 mL (ANCEF)Problem List:HILDA (obstructive sleep apnea) [G47.33]Morbid obesity (HCC) [E66.01]Fibromyalgia [M79.7]Depression [F32.9]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 Patient is not sickat this time. She is scheduled for ulnar nerve decompression on 06/02/17.Sanjiv Cisse PA-C 06/01/2017 11:52 AM SignedShe has chronic leukocytosis, previous CBCs with elevated WBCs. She consultedhematology in the past. As long as she is asymptomatic we can proceed.Progress Notes ([facility]):Rocio Baldwin Toby 05/17/2017 10:52 AM SignedPlease schedule patient for Left ulnar nerve decompression, possibletransposition on 06/02/17. Patient request post op appointments in the morning.Masha Quiros [facility] 05/17/2017 2:35 PM SignedSurgical request completed. Post ops made and mailed.Jessi Bojorquezrandy Luis 05/18/2017 2:05 PM SignedPatient scheduled as requested. Normal [facility] MRI BRAIN WO/W IVCONon 05-01 MRI BRAIN WO/W IVCON * * *Final Report* * *DATE OF EXAM: May 01 2017 10:59AM [facility] 0295 - MRI BRAIN WO/W IVCON / REASON: [...] foramina are patent.C7-T1: Canal and foramina are patent.IMPRESSION:Motio n compromised examination.Grossly unremarkable MRI of the brain and cervical spine.Pbx Installer: PSCB Transcribe Date/Time: May 01 2017 11:04ADictated by : ALEJANDRO HERNANDEZ MDThis examination was interpreted and the report reviewed and electronically signed by: ALEJANDRO HERNANDEZ MD on May 01 2017 11:10AM [id number] [facility] MRI CERVICAL SPINE WO/W IVCO Non 05-01-2017 MRI CERVICAL SPINE WO/W IVCON * * *Final Report* * *DATE OF EXAM: May 01 2017 10:59AM [facility] 0298 - MRI CERVICAL SPINE WO/W IVCON / [...] foramina are patent.C7-T1: Canal and foramina are patent.IMPRESSION:Motio n compromised examination.Grossly unremarkable MRI of the brain and cervical spine.Pbx Installer: NICHOLAS Transcribe Date/Time: May 01 2017 11:04ADictated by : ALEJANDRO HERNANDEZ MDThis examination was interpreted and the report reviewed and electronically signed by: ALEJANDRO HERNANDEZ MD on May 01 2017 11:10AM [id number] [facility] PROGRESSon 04-27-2017 PROGRESS HNO ID: [id number]: Madhavi Tilley CTS (Ct)ervice: (none)Author Type: Clinical TechnicianType: Progress NotesFiled: 04/27/2017 11:24 AMNote Text:NAME:Karishma PickardDATE: April 27, 2017CCF#: [id number] Extremity X-Ray(s): Elbow, Left COMPLETEDTECH ID SIGN: GONZALO GUNDERSON [facility] XR ELBOW 3V AP/LAT/OTHER LTo n 04-27-2017 XR ELBOW 3V AP/LAT/OTHER LT * * *Final Report* * *DATE OF EXAM: Apr 27 2017 10:39AM MDO 5324 - XR ELBOW 3V AP/LAT/OTHER LT / REASON: B85-Ohdz, unspecified * * * * Physician Interpretation * * * * HISTORY: Pain, unspecifiedTECHNIQUE: 3 views left elbowCOMPARISON: None.RESULT:There is no acute fracture.Normal alignment and joint spaces left elbow. There is no joint effusion. No focal soft tissue swelling.IMPRESSION:NOR MALTranscriptionist: PSCB Transcribe Date/Time: Apr 27 2017 12:21PDictated by : JACK MERCEDES MDThis examination was interpreted and the report reviewed and electronically signed by: JACK MERCEDES MD on Apr 27 2017 12:21PM [id number] [facility] Folate, Serumon 04-20-2017 Folate, Serum 3.8 ng/mL Low >4.7 [facility] Comment on above: Performed By: #### T SH, B12, SERFOL, SYPHGX, LYMEGM, VITD ####[facility] [place], [place] [phone] Lyme IgG/IgM ABon 04-20-2017 Lyme IgG/IgM AB Negative Normal Negative [facility] Comment on above: Result Comment: Abse nce of detectable Borrelia burgdorferi antibodies. A negative result does not exclude the possibility of Borrelia burgdorferi infection. If early Lyme disease is suspected, a second sample should be collected and tested two to four weeks later. Performed By: #### T SH, B12, SERFOL, SYPHGX, LYMEGM, VITD ####[place] [id number] [place], [place] [phone] Lyme Interp No evidence of antibodies to Borrelia burgdorferi. Normal No evidence of antibodies to Borrelia burgdorferi. [facility] Comment on above: Performed By: #### T SH, B12, SERFOL, SYPHGX, LYMEGM, VITD ####[address] [phone] Syphilis IgG with Confon Syphilis IgG <0.2 Normal [facility] Comment on above: Result Comment: Anti body index is interpreted as follows:Non reactive SPECIMENS <=0.8Weak reactive SPECIMENS 0.9 to 5.9Reactive SPECIMENS >=6.0 Performed By: #### T SH, B12, SERFOL, SYPHGX, LYMEGM, VITD ####[place] [phone] Syphilis IgG, Qual Nonreactive Normal Nonreactive [facility] Comment on above: Result Comment: In c onjunction with this result, the immune status of the patient should be evaluated based on their clinical status, related risk factors, and other diagnostic test results. Performed By: #### T SH, B12, SERFOL, SYPHGX, LYMEGM, VITD ####[address] [phone] TSHon 04-20-2017 Thyroid stimulating hormone (TSH) 1.420 uU/mL Normal 0.400-5.500 [facility] Comment on above: Result Comment: If t he patient is , TSH reference range varies by gestational period:First Trimester 0.100-2.500 uU/mLSecond Trimester 0.200-3.000 uU/mLThird Trimester 0.300-3.000 uU/mLReferences: 1. Zambrano L, Conrad M, Brent EK, et al. Management of Thyroid Dysfunction during and : An Endocrine Society Clinical Practice Guideline. J Clin Endocrinol Metab, 2012:97:8649-0238. 2. Cristóbal JURADO. Overview of thyroid disease in . UpToDate. 2016. Accessed on December 13, 2015. Performed By: #### T SH, B12, SERFOL, SYPHGX, LYMEGM, VITD ####[facility] [place], [place] [phone] Vitamin B12on 04-20-2017 Cobalamins (Vitamin B12) 376 pg/mL Normal 211-946 [facility] Comment on above: Performed By: #### T SH, B12, SERFOL, SYPHGX, LYMEGM, VITD ####[facility] [place], [place] [phone] Vitamin D 25 Hydroxyon 04-20 Vitamin D 25 Hydroxy 22.7 ng/mL Low 31.0-80.0 [facility] Comment on above: Result Comment: Clas sification of 25 [place] Vitamin D status:Insufficiency/Moderate Deficiency: < or = 30 ng/mLSufficiency/Optimal Levels: 31 to 80 ng/mLToxicity: > 100 ng/mLTest performed by chemiluminescent immunoassay. Performed By: #### T SH, B12, SERFOL, SYPHGX, LYMEGM, VITD ####[facility] [place], [place] [phone] ANAon 02-25-2017 EMILY SCR (TITER) Negative Normal () [facility] Comment on above: Order Comment: Lawrence dumont: Nell Result Comment: Nega tive <1:80 Borderline 1:80 Positive >1:80Performed At: [facility] [address]ex[address] [place], [place] [id number] Goins [id number] At: [facility] [address] [place], [place] [id number] Vincent [id number] Performed By: #### L 700.51882, L700.09314 ####[facility]O[address] [place] [address]Pi# [phone] CCP-ABSon 02-25-2017 CCP-ABS 7 units Normal 0-19 [facility] Comment on above: Order Comment: Lawrence s: M Result Comment: Nega tive <20 Weak positive 20 - 39 Moderate positive 40 - 59 Strong positive >59 Performed By: #### L 700.28014, L700.02380 ####[facility] SYSTEMWJYVJLM[address] [place] [address]Ra# [phone] TSHon 02-22-2017 Thyroid stimulating hormone (TSH) 1.490 UIU/ML Normal 0.358-3.740 [facility] Comment on above: Order Comment: Lawrence dumont: Nell Result Comment: 3rd generation ultra sensitive TSH Performed By: #### L 500.06129 ####[facility] [address] [place], [place] [address]Jh# [phone] Culture, urine Bacteria identified Cx Nom (U) Positive [facility] Work Phone: Vital Signs Date Time Vital Sign Value Performing Clinician Carl catherine 12-25-2024 08:38-0400 Body height 163.5 cm Ginny Gomez PARTS SALVAGER.SHOWROOM SALES CONSULTANT Work Phone: [facility] 12-25-2024 08:38-0400 Body mass index (BMI) [Ratio] 54.17 kg/m2 Ginny Gomez PARTS SALVAGER.SHOWROOM SALES CONSULTANT Work Phone: [facility] 12-25-2024 08:38-0400 Body weight 144.8 kg Ginny OropezaJason PARTS SALVAGER.SHOWROOM SALES CONSULTANT Work Phone: [facility] 12-25-2024 08:38-0400 Diastolic blood pressure 84 mm[Hg] Ginny Jason PARTS SALVAGER.SHOWROOM SALES CONSULTANT Work Phone: [facility] 12-25-2024 08:38-0400 Heart rate 108 /min Ginny Gomez PARTS SALVAGER.SHOWROOM SALES CONSULTANT Work Phone: [facility] 12-25-2024 08:38-0400 Respiratory rate 16 /min Ginny OropezaJason PARTS SALVAGER.SHOWROOM SALES CONSULTANT Work Phone: [facility] 12-25-2024 08:38-0400 SaO2% (BldA) [Mass fraction] 96 % Ginny Gomez PARTS SALVAGER.SHOWROOM SALES CONSULTANT Work Phone: [facility] 12-25-2024 08:38-0400 Systolic blood pressure 132 mm[Hg] Ginny Gomez PARTS SALVAGERRadhaSHOWROOM SALES CONSULTANT Work Phone: [phone] [place] [address] 11-13-2024 09:40-0400 Body temperature 97.5 [degF] Dr. Denis Garcia MD Work Phone: [phone] [place] [address] 11-13-2024 09:40-0400 Diastolic blood pressure 82 mm[Hg] Dr. Denis Garcia MD Work Phone: 9(528)318-046002 [place] [address] 11-13-2024 09:40-0400 Heart rate 95 /min Dr. Denis Garcia MD Work Phone: 0(581)603-200819 [place] [address] 11-13-2024 09:40-0400 Respiratory rate 16 /min Dr. Denis Garcia MD Work Phone: 9(310)919-493119 [place] [address] 11-13-2024 09:40-0400 SaO2% (BldA) [Mass fraction] 97 % Dr. Denis Garcia MD Work Phone: 5(408)567-819119 [place] [address] 11-13-2024 09:40-0400 Systolic blood pressure 124 mm[Hg] Dr. Denis Garcia MD Work Phone: 0(525)104-621019 [place] [address] 11-13-2024 08:42-0400 Body height 165.[address] Denis Garcia MD Work Phone: 0(067)607-234102 [place] [address] 11-13-2024 08:42-0400 Body mass index (BMI) [Ratio] 53.5 kg/m2 Dr. Denis Garcia MD Work Phone: 6(593)512-279919 [place] [address] 11-13-2024 08:42-0400 Body weight [address] Denis Garcia MD Work Phone: 8(748)224-424602 [place] [address] 08-14-2024 08:46-0500 Body temperature 97.2 [degF] Dr. Denis Garcia MD Work Phone: 6(086)671-531102 [place] [address] 08-14-2024 08:46-0500 Diastolic blood pressure 92 mm[Hg] Dr. Denis Garcia MD Work Phone: 2(640)422-200202 [place] [address] 08-14-2024 08:46-0500 Heart rate 104 /min Dr. Denis Garcia MD Work Phone: 5(215)519-284402 [place] [address] 08-14-2024 08:46-0500 Respiratory rate 16 /min Dr. Denis Garcia MD Work Phone: 5(707)637-149902 [place] [address] 08-14-2024 08:46-0500 SaO2% (BldA) [Mass fraction] 98 % Dr. Denis Garcia MD Work Phone: 2(380)070-047202 [place] [address] 08-14-2024 08:46-0500 Systolic blood pressure 158 mm[Hg] Dr. Denis Garcia MD Work Phone: 2(353)494-318102 [place] [address] 08-14-2024 07:07-0500 Body height 170.[address] Denis Garcia MD Work Phone: 3(590)344-582402 [place] [address] 08-14-2024 07:07-0500 Body mass index (BMI) [Ratio] 49.9 kg/m2 Dr. Denis Garcia MD Work Phone: 4(702)340-729102 [place] [address] 08-14-2024 07:07-0500 Body weight 144.[address] Denis Garcia MD Work Phone: 6(012)692-563402 [place] [address] 03-06-2024 09:21-0400 Diastolic blood pressure 96 mm[Hg] Ginny Gomez [employer] Work Phone: 0(530)459-440773 [place] [address] 03-06-2024 09:21-0400 Systolic blood pressure 128 mm[Hg] Ginny Gomez [employer] SAL[employer]ER[employer] Work Phone: 7(135)710-459485 [place] [address] 03-06-2024 08:59-0400 Body mass index (BMI) [Ratio] 49.78 kg/m2 Ginny Gomez [employer] SAL[employer]ER[employer] Work Phone: [facility] 03-06-2024 08:59-0400 Body weight 140.5 kg Ginny Gomez [employer]S SAL[employer]ER[employer] Work Phone: [facility] 03-06-2024 08:59-0400 Heart rate 132 /min Ginny Gomez [employer]S SAL[employer]ER[employer] Work Phone: [facility] 03-06-2024 08:59-0400 Respiratory rate 20 /min Ginny Gomez [employer] SAL[employer]ER[employer] Work Phone: [facility] 03-06-2024 08:59-0400 SaO2% (BldA) [Mass fraction] 98 % Ginny Gomez [employer] SAL[employer]ER[employer] Work Phone: [facility] 09-03-2023 08:30-0500 Body weight 154.13 kg Denis Garcia MD Work Phone: [facility] 09-03-2023 08:30-0500 Diastolic blood pressure 79 mm[Hg] Denis Garcia MD Work Phone: [facility] 09-03-2023 08:30-0500 Heart rate 118 /min Denis Garcia MD Work Phone: [facility] 09-03-2023 08:30-0500 Respiratory rate 18 /min Denis Garcia MD Work Phone: [facility] 09-03-2023 08:30-0500 SaO2% (BldA) [Mass fraction] 98 % Denis Garcia MD Work Phone: [facility] 09-03-2023 08:30-0500 Systolic blood pressure 117 mm[Hg] Denis Garcia MD Work Phone: [facility] 08-23-2023 09:28-0500 Body temperature 97.9 [degF] [facility] 08-23-2023 09:28-0500 Diastolic blood pressure 96 mm[Hg] [facility] 08-23-2023 09:28-0500 Heart rate 97 /min [facility] 08-23-2023 09:28-0500 Respiratory rate 18 /min [facility] 08-23-2023 09:28-0500 SaO2% (BldA) [Mass fraction] 97 % [facility] 08-23-2023 09:28-0500 Systolic blood pressure 141 mm[Hg] [facility] 08-23-2023 06:57-0500 Body height 170.18 cm [facility] 08-23-2023 06:57-0500 Body mass index (BMI) [Ratio] 52.2 kg/m2 [facility] 08-23-2023 06:57-0500 Body weight 151.4 kg [facility] 06-14-2023 09:05-0500 Body temperature 98 [degF] Dr. Denis Garcia Work Phone: [facility] 06-14-2023 09:05-0500 Diastolic blood pressure 87 mm[Hg] Dr. Denis Garcia Work Phone: [facility] 06-14-2023 09:05-0500 Heart rate 102 /min Dr. Denis Garcia Work Phone: 3(481)948-630219 [place] [address] 06-14-2023 09:05-0500 Respiratory rate 18 /min Dr. Denis Garcia Work Phone: [facility] 06-14-2023 09:05-0500 SaO2% (BldA) [Mass fraction] 98 % Dr. Denis Garcia Work Phone: [facility] 06-14-2023 09:05-0500 Systolic blood pressure 126 mm[Hg] Dr. Denis Garcia Work Phone: [facility] 06-14-2023 07:19-0500 Body height 170.[address] Denis Garcia Work Phone: [facility] 06-14-2023 07:19-0500 Body mass index (BMI) [Ratio] 52.1 kg/m2 Dr. Denis Garica Work Phone: [facility] 06-14-2023 07:19-0500 Body weight [address] Denis Garcia Work Phone: [facility] 06-04-2023 08:48-0500 Body weight 150.59 kg Angela Lizett [employer] SAL[employer] Work Phone: [facility] 06-04-2023 08:48-0500 Diastolic blood pressure 88 mm[Hg] Angela Lizett [employer] SAL[employer]ER[employer] Work Phone: [facility] 06-04-2023 08:48-0500 Heart rate 100 /min Angela Lizett [employer] SAL[employer]ER[employer] Work Phone: [facility] 06-04-2023 08:48-0500 Respiratory rate 18 /min Angela Lizett [employer] SAL[employer]ER[employer] Work Phone: [facility] 06-04-2023 08:48-0500 SaO2% (BldA) [Mass fraction] 97 % Angela Lizett [employer]S SAL[employer]ER[employer] Work Phone: [facility] 06-04-2023 08:48-0500 Systolic blood pressure 151 mm[Hg] Angela Lizett [employer]S SAL[employer]ER[employer] Work Phone: [facility] 04-17-2023 10:38-0400 Body mass index (BMI) [Ratio] 51.7 kg/m2 Dr. Denis Garcia Work Phone: [facility] 04-17-2023 10:38-0400 Body temperature 99.6 [degF] Dr. Denis Garcia Work Phone: [facility] 04-17-2023 10:38-0400 Body weight 149.[address] Denis Garcia Work Phone: [facility] 04-17-2023 10:38-0400 Diastolic blood pressure 87 mm[Hg] Dr. Denis Garcia Work Phone: [facility] 04-17-2023 10:38-0400 Heart rate 109 /min Dr. Denis Garcia Work Phone: [facility] 04-17-2023 10:38-0400 SaO2% (BldA) [Mass fraction] 95 % Dr. Denis Garcia Work Phone: [facility] 04-17-2023 10:38-0400 Systolic blood pressure 137 mm[Hg] Dr. Denis Garcia Work Phone: [facility] 04-12-2023 07:51-0400 Body weight 147.51 kg Alexander Espinoza Jr., MD Work Phone: [facility] 04-12-2023 07:51-0400 Diastolic blood pressure 90 mm[Hg] Alexander Espinoza Jr., MD Work Phone: [facility] 04-12-2023 07:51-0400 Heart rate 110 /min Alexander Espinoza Jr., MD Work Phone: [facility] 04-12-2023 07:51-0400 Respiratory rate 16 /min Alexander Espinoza Jr., MD Work Phone: [facility] 04-12-2023 07:51-0400 SaO2% (BldA) [Mass fraction] 96 % Alexander Espinoza Jr., MD Work Phone: [facility] 04-12-2023 07:51-0400 Systolic blood pressure 128 mm[Hg] Alexander Espinoza Jr., MD Work Phone: [facility] 03-15-2023 08:53-0400 Diastolic blood pressure 68 mm[Hg] [facility] 03-15-2023 08:53-0400 Heart rate 92 /min [facility] 03-15-2023 08:53-0400 Respiratory rate 16 /min [facility] 03-15-2023 08:53-0400 SaO2% (BldA) [Mass fraction] 98 % [facility] 03-15-2023 08:53-0400 Systolic blood pressure 115 mm[Hg] [facility] 03-15-2023 08:35-0400 Body temperature 97.4 [degF] [facility] 03-15-2023 07:04-0400 Body height 170.18 cm [facility] 03-15-2023 07:04-0400 Body mass index (BMI) [Ratio] 52 kg/m2 [facility] 03-15-2023 07:04-0400 Body weight 150.7 kg [facility] 03-10-2023 09:08-0400 Body height 170.2 cm Salome Alicia MD Work Phone: [facility] 03-10-2023 09:08-0400 Body mass index (BMI) [Ratio] 52.31 kg/m2 Salome Alicia MD Work Phone: [facility] 03-10-2023 09:08-0400 Body weight 151.5 kg Salome Alicia MD Work Phone: [facility] 01-28-2023 01:18-0400 Diastolic blood pressure 99 mm[Hg] [facility] 01-28-2023 01:18-0400 Heart rate 93 /min [facility] 01-28-2023 01:18-0400 Respiratory rate 15 /min [facility] 01-28-2023 01:18-0400 SaO2% (BldA) [Mass fraction] 98 % [facility] 01-28-2023 01:18-0400 Systolic blood pressure 149 mm[Hg] [facility] 01-27-2023 22:23-0400 Body height 170.18 cm [facility] 01-27-2023 22:23-0400 Body mass index (BMI) [Ratio] 52.9 kg/m2 [facility] 01-27-2023 22:23-0400 Body temperature 97.3 [degF] [facility] 01-27-2023 22:23-0400 Body weight 153.31 kg [facility] 09-23-2022 09:09-0400 Body temperature 98.2 [degF] Susana Moon MD Work Phone: [facility] 09-23-2022 09:09-0400 Body weight 160.12 kg Susana Moon MD Work Phone: [facility] 09-23-2022 09:09-0400 Diastolic blood pressure 91 mm[Hg] Susana Moon MD Work Phone: [facility] 09-23-2022 09:09-0400 Heart rate 110 /min Susana Moon MD Work Phone: [facility] 09-23-2022 09:09-0400 SaO2% (BldA) [Mass fraction] 98 % Susana Moon MD Work Phone: [facility] 09-23-2022 09:09-0400 Systolic blood pressure 137 mm[Hg] Susana Moon MD Work Phone: [facility] 09-14-2022 08:25-0400 Body temperature 97.9 [degF] [facility] 09-14-2022 08:25-0400 Diastolic blood pressure 90 mm[Hg] [facility] 09-14-2022 08:25-0400 Heart rate 94 /min [facility] 09-14-2022 08:25-0400 Respiratory rate 18 /min [facility] 09-14-2022 08:25-0400 SaO2% (BldA) [Mass fraction] 97 % [facility] 09-14-2022 08:25-0400 Systolic blood pressure 150 mm[Hg] [facility] 09-14-2022 08:15-0400 Diastolic blood pressure 95 mm[Hg] [facility] 09-14-2022 08:15-0400 Heart rate 98 /min [facility] 09-14-2022 08:15-0400 Respiratory rate 18 /min [facility] 09-14-2022 08:15-0400 SaO2% (BldA) [Mass fraction] 97 % [facility] 09-14-2022 08:15-0400 Systolic blood pressure 136 mm[Hg] [facility] 09-14-2022 07:58-0400 Body temperature 97 [degF] [facility] 09-14-2022 06:16-0400 Body height 170.18 cm [facility] 09-14-2022 06:16-0400 Body mass index (BMI) [Ratio] 55.5 kg/m2 [facility] 09-14-2022 06:16-0400 Body weight 161.02 kg [facility] 08-10-2022 08:27-0500 Diastolic blood pressure 72 mm[Hg] Ginny Older [employer]S SAL[employer]ER[employer] Work Phone: [facility] 08-10-2022 08:27-0500 Systolic blood pressure 126 mm[Hg] Ginny Older [employer] SAL[employer]ER[employer] Work Phone: [facility] 08-10-2022 07:54-0500 Body height 167.6 cm Ginny Older [employer]S SAL[employer]ER[employer] Work Phone: [facility] 08-10-2022 07:54-0500 Body weight 156.94 kg Ignny Older [employer]S SAL[employer]ER[employer] Work Phone: [facility] 08-10-2022 07:54-0500 Heart rate 120 /min Ginny Older [employer]S SAL[employer]ER[employer] Work Phone: [facility] 08-10-2022 07:54-0500 Respiratory rate 20 /min Ginny Older [employer]S SAL[employer]ER[employer] Work Phone: [facility] 07-13-2022 12:16-0500 Body temperature 98.5 [degF] [facility] 07-13-2022 12:16-0500 Diastolic blood pressure 87 mm[Hg] [facility] 07-13-2022 12:16-0500 Heart rate 99 /min [facility] 07-13-2022 12:16-0500 Respiratory rate 14 /min [facility] 07-13-2022 12:16-0500 SaO2% (BldA) [Mass fraction] 99 % [facility] 07-13-2022 12:16-0500 Systolic blood pressure 122 mm[Hg] [facility] 07-13-2022 10:13-0500 Body height 170.18 cm [facility] 07-13-2022 10:13-0500 Body mass index (BMI) [Ratio] 55.2 kg/m2 [facility] 07-13-2022 10:13-0500 Body weight 160 kg [facility] 07-08-2022 09:09-0500 Body height 170.2 cm Coby De Jesus MD Work Phone: [facility] 07-08-2022 09:09-0500 Body mass index (BMI) [Ratio] 54.47 kg/m2 Coby De Jesus MD Work Phone: [facility] 07-08-2022 09:09-0500 Body weight 157.76 kg Coby De Jesus MD Work Phone: [facility] 07-08-2022 09:09-0500 Diastolic blood pressure 88 mm[Hg] Coby De Jesus MD Work Phone: [facility] 07-08-2022 09:09-0500 Heart rate 105 /min Coby De Jesus MD Work Phone: [facility] 07-08-2022 09:09-0500 Respiratory rate 18 /min Coby De Jesus MD Work Phone: [facility] 07-08-2022 09:09-0500 Systolic blood pressure 146 mm[Hg] Coby De Jesus MD Work Phone: [facility] 05-04-2022 09:18-0500 Body temperature 100 [degF] [facility] 05-04-2022 09:18-0500 Diastolic blood pressure 87 mm[Hg] [facility] 05-04-2022 09:18-0500 Heart rate 99 /min [facility] 05-04-2022 09:18-0500 Respiratory rate 18 /min [facility] 05-04-2022 09:18-0500 SaO2% (BldA) [Mass fraction] 96 % [facility] 05-04-2022 09:18-0500 Systolic blood pressure 141 mm[Hg] [facility] 05-04-2022 08:19-0500 Body height 170.18 cm [facility] Work Phone: 05-04-2022 08:19-0500 Body mass index (BMI) [Ratio] 53.5 kg/m2 [facility] 05-04-2022 08:19-0500 Body weight 155 kg [facility] 04-08-2022 09:57-0400 Heart rate 86 /min [facility] 04-08-2022 08:21-0400 Respiratory rate 18 /min [facility] 04-08-2022 07:15-0400 Body height 170.18 cm [facility] Work Phone: 04-08-2022 07:15-0400 Body mass index (BMI) [Ratio] 53.7 kg/m2 [facility] 04-08-2022 07:15-0400 Body temperature 97.2 [degF] [facility] 04-08-2022 07:15-0400 Body weight 155.6 kg [facility] 04-08-2022 07:15-0400 Diastolic blood pressure 85 mm[Hg] [facility] 04-08-2022 07:15-0400 SaO2% (BldA) [Mass fraction] 99 % [facility] 04-08-2022 07:15-0400 Systolic blood pressure 144 mm[Hg] [facility] 03-31-2022 08:22-0400 Body height 170.2 cm Rk Mcclain MD Work Phone: [facility] 03-31-2022 08:22-0400 Body mass index (BMI) [Ratio] 52.63 kg/m2 Rk Mcclain MD Work Phone: [facility] 03-31-2022 08:22-0400 Body weight 152.41 kg Rk Mcclain MD Work Phone: [facility] 02-25-2022 09:35-0400 Body height 170.18 cm [facility] Doctor [facility] Work Phone: 02-25-2022 09:35-0400 Body mass index (BMI) [Ratio] 52.6 kg/m2 [facility] Doctor [facility] Work Phone: 02-25-2022 09:35-0400 Body temperature 97.6 [degF] [facility] Work Phone: 02-25-2022 09:35-0400 Body weight 152.4 kg Out [facility] Work Phone: 02-25-2022 09:35-0400 Diastolic blood pressure 89 mm[Hg] Out [facility] Work Phone: 02-25-2022 09:35-0400 Heart rate 108 /min Out [facility] Work Phone: 02-25-2022 09:35-0400 Respiratory rate 17 /min Out [facility] Work Phone: 02-25-2022 09:35-0400 SaO2% (BldA) [Mass fraction] 98 % Out [facility] Work Phone: 02-25-2022 09:35-0400 Systolic blood pressure 160 mm[Hg] Out [facility] Work Phone: 01-26-2022 10:05-0400 Body temperature 97.4 [degF] Dr. Stephon Benton Work Phone: [facility] Work Phone: 01-26-2022 10:05-0400 Diastolic blood pressure 67 mm[Hg] Dr. Stephon Benton Work Phone: [facility] Work Phone: 01-26-2022 10:05-0400 Heart rate 98 /min Dr. Stephon Benton Work Phone: [facility] Work Phone: 01-26-2022 10:05-0400 Respiratory rate 16 /min Dr. Stephon Benton Work Phone: [facility] Work Phone: 01-26-2022 10:05-0400 SaO2% (BldA) [Mass fraction] 97 % Dr. Stephon Benton Work Phone: [facility] Work Phone: 01-26-2022 10:05-0400 Systolic blood pressure 108 mm[Hg] Dr. Stephon Benton Work Phone: [facility] Work Phone: 01-26-2022 08:24-0400 Body height 170.[address] Stephon Benton Work Phone: [facility] Work Phone: 01-26-2022 08:24-0400 Body mass index (BMI) [Ratio] 52.4 kg/m2 Dr. Stephon Benton Work Phone: [facility] Work Phone: 01-26-2022 08:24-0400 Body weight [address] Stephon Benton Work Phone: [facility] Work Phone: 12-08-2021 08:04-0400 Body mass index (BMI) [Ratio] 53.2 kg/m2 Dr. Stephon Benton Work Phone: [facility] Work Phone: 12-08-2021 08:04-0400 Body weight 154.[address] Stephon Benton Work Phone: [facility] Work Phone: 11-10-2021 09:22-0400 Body temperature 97.9 [degF] [facility] Work Phone: 11-10-2021 09:22-0400 Diastolic blood pressure 82 mm[Hg] [facility] Work Phone: 11-10-2021 09:22-0400 Heart rate 90 /min [facility] Work Phone: 11-10-2021 09:22-0400 Respiratory rate 16 /min [facility] Work Phone: 11-10-2021 09:22-0400 SaO2% (BldA) [Mass fraction] 98 % [facility] Work Phone: 11-10-2021 09:22-0400 Systolic blood pressure 122 mm[Hg] [facility] Work Phone: 11-10-2021 07:24-0400 Body height 170.18 cm [facility] Work Phone: 11-10-2021 07:24-0400 Body mass index (BMI) [Ratio] 54.3 kg/m2 [facility] Work Phone: 11-10-2021 07:24-0400 Body weight 157.4 kg [facility] Work Phone: 10-16-2021 12:46-0400 Body mass index (BMI) [Ratio] 54.8 kg/m2 [facility] Work Phone: 10-16-2021 12:46-0400 Body temperature 97.7 [degF] [facility] Work Phone: 10-16-2021 12:46-0400 Body weight 158.75 kg [facility] Work Phone: 10-16-2021 12:46-0400 Diastolic blood pressure 111 mm[Hg] [facility] Work Phone: 10-16-2021 12:46-0400 Heart rate 123 /min [facility] Work Phone: 10-16-2021 12:46-0400 Respiratory rate 18 /min [facility] Work Phone: 10-16-2021 12:46-0400 SaO2% (BldA) [Mass fraction] 100 % [facility] Work Phone: 10-16-2021 12:46-0400 Systolic blood pressure 173 mm[Hg] [facility] Work Phone: 10-12-2021 00:16-0400 Diastolic blood pressure 87 mm[Hg] [facility] Work Phone: 10-12-2021 00:16-0400 Heart rate 87 /min [facility] Work Phone: 10-12-2021 00:16-0400 Respiratory rate 15 /min [facility] Work Phone: 10-12-2021 00:16-0400 SaO2% (BldA) [Mass fraction] 99 % [facility] Work Phone: 10-12-2021 00:16-0400 Systolic blood pressure 144 mm[Hg] [facility] Work Phone: 10-11-2021 21:59-0400 Body height 170.18 cm [facility] Work Phone: 10-11-2021 21:59-0400 Body mass index (BMI) [Ratio] 54.8 kg/m2 [facility] Work Phone: 10-11-2021 21:59-0400 Body temperature 97.2 [degF] [facility] Work Phone: 10-11-2021 21:59-0400 Body weight 158.75 kg [facility] Work Phone: 09-03-2021 16:30-0500 Body temperature 97.2 [degF] [facility] Work Phone: 09-03-2021 16:30-0500 Diastolic blood pressure 89 mm[Hg] [facility] Work Phone: 09-03-2021 16:30-0500 Heart rate 96 /min [facility] Work Phone: 09-03-2021 16:30-0500 Respiratory rate 15 /min [facility] Work Phone: 09-03-2021 16:30-0500 SaO2% (BldA) [Mass fraction] 99 % [facility] Work Phone: 09-03-2021 16:30-0500 Systolic blood pressure 160 mm[Hg] [facility] Work Phone: 09-03-2021 16:29-0500 Body mass index (BMI) [Ratio] 54.8 kg/m2 [facility] Work Phone: 09-03-2021 16:29-0500 Body weight 158.75 kg [facility] Work Phone: 09-01-2021 13:45-0500 Body temperature 97 [degF] Salome Alicia MD Work Phone: [facility] 09-01-2021 13:45-0500 Diastolic blood pressure 90 mm[Hg] Salome Alicia MD Work Phone: [facility] 09-01-2021 13:45-0500 Heart rate 82 /min Salome Alicia MD Work Phone: [facility] 09-01-2021 13:45-0500 Respiratory rate 16 /min Salome Alicia MD Work Phone: [facility] 09-01-2021 13:45-0500 SaO2% (BldA) [Mass fraction] 97 % Salome Alicia MD Work Phone: [facility] 09-01-2021 13:45-0500 Systolic blood pressure 140 mm[Hg] Salome Alicia MD Work Phone: [facility] 09-01-2021 10:16-0500 Body height 170.2 cm Salome Alicia MD Work Phone: [facility] 09-01-2021 10:16-0500 Body mass index (BMI) [Ratio] 54.82 kg/m2 Salome Alicia MD Work Phone: [facility] 09-01-2021 10:16-0500 Body weight 158.76 kg Salome Alicia MD Work Phone: [facility] 07-23-2021 11:10-0500 Diastolic blood pressure 63 mm[Hg] [facility] Work Phone: 07-23-2021 11:10-0500 Respiratory rate 16 /min [facility] Work Phone: 07-23-2021 11:10-0500 Systolic blood pressure 111 mm[Hg] [facility] Work Phone: 07-23-2021 09:31-0500 Body mass index (BMI) [Ratio] 55.3 kg/m2 [facility] Work Phone: 07-23-2021 09:31-0500 Body temperature 96.5 [degF] [facility] Work Phone: 07-23-2021 09:31-0500 Body weight 160.4 kg [facility] Work Phone: 07-23-2021 09:31-0500 Heart rate 113 /min [facility] Work Phone: 07-23-2021 09:31-0500 SaO2% (BldA) [Mass fraction] 98 % [facility] Work Phone: Encounters Encounter Date Encounter Type Care Provider Facility Start: 01-29-2025 ambulatory Cas Leavitt Facilit y:[facility] Start: 01-26-2025 Encounter for other preprocedural examination Cas Leavitt [facility] Start: 2025 End: 01-03-2025 Follow-up encounter Ginny Gomez APRN.CNP Work Phone: [facility] [place] Start: 12-25-2024 End: 12-25-2024 Subsequent hospital visit by physician [facility] Work Phone: Radiology Comment on above: Chronic left shoulde r pain [M25.512, G89.29] Start: 12-25-2024 End: 12-25-2024 Office outpatient visit 25 minutes Ginny Gomez APRN.[employer] Work Phone: [facility] [place] Comment on above: Chronic left shoulde r pain (Primary Dx); Controlled type 2 diabetes mellitus without complication, without long-term current use of insulin ([facility]); Primary hypertension; HILDA (obstructive sleep apnea); Chronic bilateral low back pain without sciatica; Cervicalgia; Class 3 severe obesity due to excess calories without serious comorbidity with body mass index (BMI) of 50.0 to 59.9 in adult ([facility]); Gastroesophageal reflux disease, unspecified whether esophagitis present; WATSON (generalized anxiety disorder); PTSD (post-traumatic stress disorder); Recurrent major depressive disorder, in remission; Tobacco use disorder; Vitamin D deficiency Start: 12-25-2024 End: 12-25-2024 ambulatory GINNY GOMEZ Facility:[facility] Start: 11-13-2024 End: 11-13-2024 Admission to same day surgery center Dr. Cas Leavitt MD -Surgical Day Care Start: 11-13-2024 End: 11-13-[address] Denis Garcia MD Work Phone: [facility] Work Phone: Start: 10-09-2024 End: 10-09-[address] Denis Garcia MD Work Phone: [facility] Work Phone: Start: 10-09-2024 End: 10-09-2024 Patient encounter procedure Irma Yu -Radiology, [facility] Work Phone: Start: 10-09-2024 End: 10-09-2024 [facility] Start: 08-14-2024 End: 08-14-2024 Admission to same day surgery center Dr. Cas Leavitt MD -Surgical Day Care Start: 08-14-2024 End: 08-14-2024 [facility] Start: 06-12-2024 End: 06-12-2024 ambulatory [facility] Facility:[facility] Start: 03-15-2024 End: 03-16-2024 Refill Denis Garcia MD Work Phone: [facility] [place] Comment on above: Refill Request Start: 03-13-2024 End: 03-13-2024 [facility] Start: 03-06-2024 End: 03-06-2024 Patient encounter procedure Ginny Gomez PARTS SALVAGER.[employer] SALES CONSULTANT Work Phone: [facility] [place] Comment on above: Primary hypertension (Primary Dx); Tachycardia; Controlled type 2 diabetes mellitus without complication, without long-term current use of insulin (HCC); Class 3 severe obesity due to excess calories without serious comorbidity with body mass index (BMI) of 50.0 to 59.9 in adult ([facility]); Vitamin D deficiency; HILDA (obstructive sleep apnea); WATSON (generalized anxiety disorder); PTSD (post-traumatic stress disorder); Depression, unspecified depression type; Gastroesophageal reflux disease, unspecified whether esophagitis present Start: 03-06-2024 End: 03-06-2024 ambulatory GINNYNicky GOMEZ Facility:[facility] Start: 02-27-2024 End: 02-27-2024 ambulatory Edgar Menard RN 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 Comment on above: Hypertension Start: 02-27-2024 End: 02-27-2024 Emergency department patient visit Denis Garcia Facility:[facility] Start: 02-11-2024 Telephone encounter Denis merrill MD Work Phone: [facility] [place] Comment on above: Migraine Start: 09-03-2023 End: 09-03-2023 Subsequent hospital visit by physician [facility] Work Phone: Radiology Comment on above: Pleurodynia [R07.81] Start: 09-03-2023 End: 09-03-2023 Patient encounter procedure Denis Garcia MD Work Phone: Internal [facility] [place] Comment on above: Pleurodynia (Primary Dx); Controlled type 2 diabetes mellitus without complication, without long-term current use of insulin ([facility]); PTSD (post-traumatic stress disorder); WATSON (generalized anxiety disorder); Depression, unspecified depression type; Vitamin D deficiency; Leukocytosis, unspecified type Start: 08-23-2023 End: 08-23-2023 Emergency department patient visit [facility]-Emergency Department Work Phone: Start: 08-20-2023 Telephone encounter Denis merrill MD Work Phone: [facility] [place] Comment on above: Insurance Authorizat ion Start: 08-19-2023 Refill Denis damon MD Work Phone: [facility] [place] Comment on above: Med Change Request Start: 08-06-2023 Refill Rk Silveira Work Phone: [facility] Cardiology Start: 06-14-2023 End: 06-14-2023 Admission to same day surgery center [facility] Start: 06-14-2023 End: 06-14-[address] Denis Garcia Work Phone: [facility] Work Phone: Start: 06-04-2023 End: 06-04-2023 Patient encounter procedure Angela Phoenix APRN.[employer] SALES CONSULTANT Work Phone: Neurology Comment on above: Obstructive sleep ap isela treated with bilevel positive airway pressure (BiPAP) (Primary Dx) Start: 04-17-2023 End: 04-17-[address] Denis Garcia Work Phone: [facility] Work Phone: Start: 04-12-2023 End: 04-12-2023 Patient encounter procedure Alexander Espinoza MD Work Phone: Neurology Comment on above: HILDA (obstructive sle ep apnea) (Primary Dx); Personal history of multiple sclerosis (HCC); History of posttraumatic stress disorder (PTSD); Class 3 severe obesity with body mass index (BMI) of 50.0 to 59.9 in adult, unspecified obesity type, unspecified whether serious comorbidity present (HCC); Chronic insomnia Start: 03-22-2023 Telephone encounter Denis merrill MD Work Phone: [facility] [place] Comment on above: Patient Question Start: 03-15-2023 End: 03-15-2023 [facility] Start: 03-15-2023 End: 03-15-2023 ambulatory [facility] Work Phone: Start: 03-10-2023 End: 03-11-2023 ambulatory DENIS GARCIA [facility] Start: 03-10-2023 End: 03-10-2023 ambulatory SALOME ALICIA [facility] Start: 03-10-2023 End: 03-10-2023 Patient encounter procedure Salome Alicia MD Work Phone: [facility] Work Phone: Start: 03-10-2023 End: 03-10-2023 Periodic preventive med est patient 18-39 yrs Salome Alicia MD Work Phone: [facility] Comment on above: Women's annual routi ne gynecological examination (Primary Dx); Screen for STD (sexually transmitted disease) Start: 03-03-2023 End: 03-03-2023 Patient encounter procedure Denis Garcia MD Work Phone: [facility] [place] Comment on above: Controlled type 2 di abetes mellitus without complication, without long-term current use of insulin (HCC) (Primary Dx); Class 3 severe obesity due to excess calories without serious comorbidity with body mass index (BMI) of 50.0 to 59.9 in adult (HCC); Depression, unspecified depression type; Need for influenza vaccination; HILDA (obstructive sleep apnea); Vitamin D deficiency Start: 02-09-2023 Refill Martha Caro PARTS SALVAGER - [employer] SALES CONSULTANT Work Phone: [facility] Cardiology Start: 02-01-2023 Telephone encounter Christiano arreaga DO Work Phone: Hematology/Oncology Comment on above: Appointment; Patient Update Start: 01-27-2023 End: 01-28-2023 Emergency department patient visit [facility]Emergency [facility] Work Phone: Start: 01-27-2023 ambulatory Brook Kendrick RN NURSE O N CALL Comment on above: High Blood Sugar Start: 01-25-2023 Telephone encounter Denis merrill MD Work Phone: [facility] [place] Comment on above: bi-pap issue Start: 12-31-2022 End: 12-31-2022 ambulatory [facility] Work Phone: Start: 12-31-2022 End: 12-31-2022 Patient encounter procedure [facility]Sleep Lab Work Phone: Start: 12-16-2022 Orders Only Denis damon MD Work Phone: [facility] [place] Comment on above: Vitamin D deficiency (Primary Dx) Results Start: 12-08-2022 End: 12-08-2022 Subsequent hospital visit by physician [facility] Work Phone: Radiology Comment on above: Pleuritic chest pain [R07.81] Start: 10-07-2022 Telephone encounter Susana haines MD Work Phone: Hematology/Oncology Comment on above: Called Back Start: 09-23-2022 End: 09-23-2022 ambulatory Susana Moon MD Work Phone: Hematology/Oncology Comment on above: Leukocytosis, unspec ified type (Primary Dx); Erythrocytosis Start: 09-23-2022 End: 09-23-2022 Patient encounter procedure Susana Moon MD Work Phone: [facility] Start: 09-22-2022 Orders Only Susana Moon MD Work Phone: Hematology/Oncology Comment on above: Thrombocytosis (Prim jose Dx); Leukemoid reaction Start: 09-17-2022 End: 09-17-2022 ambulatory [facility] Work Phone: Start: 09-17-2022 End: 09-17-2022 Patient encounter procedure [facility]-Sleep Lab Start: 09-14-2022 End: 09-14-2022 Admission to same day surgery center [facility]-Surgical Day Care Start: 09-14-2022 End: 09-14-2022 ambulatory [facility] Work Phone: Start: 09-03-2022 Refill Denis damon MD Work Phone: Internal [facility] Comment on above: Refill Request Start: 08-18-2022 Telephone encounter Denis merrill MD Work Phone: [facility] [place] Comment on above: Medication Problem Start: 08-17-2022 Telephone encounter Christiano arreaga DO Work Phone: Hematology/Oncology Comment on above: Appointment Start: 08-11-2022 Telephone encounter Coby young MD Work Phone: [facility] Comment on above: Medication Concern Start: 08-10-2022 End: 08-10-2022 Patient encounter procedure Ginny Mcrae APRN.[employer] SALES CONSULTANT Work Phone: Internal Medicine [place] Comment on above: Controlled type 2 di abetes mellitus without complication, without long-term current use of insulin ([facility]) (Primary Dx); Chronic bilateral low back pain without sciatica; Depression, unspecified depression type; WATSON (generalized anxiety disorder); PTSD (post-traumatic stress disorder); DDD (degenerative disc disease), lumbar; Fibromyalgia; Class 3 severe obesity due to excess calories without serious comorbidity with body mass index (BMI) of 50.0 to 59.9 in adult ([facility]); HILDA (obstructive sleep apnea); Gastroesophageal reflux disease, unspecified whether esophagitis present; Tobacco use disorder; Encounter for immunization Start: 07-20-2022 ambulatory Zoey Harry Cl inical Communication Start: 07-20-2022 Patient encounter procedure Zoey Harry Clinical Communication Start: 07-13-2022 End: 07-13-2022 Admission to same day surgery center [facility] Care Start: 07-13-2022 End: 07-13-2022 ambulatory [facility] Work Phone: Start: 07-08-2022 End: 07-08-2022 Office outpatient visit 15 minutes Coby De Jesus MD Work Phone: [facility] Comment on above: Type 2 diabetes christina itus without complication, without long- term current use of insulin ([facility]) ([facility]) (Primary Dx); BMI 50.0-59.9, adult ([facility]) ([facility]); Class 3 severe obesity with serious comorbidity and body mass index (BMI) of 50.0 to 59.9 in adult, unspecified obesity type ([facility]) Start: 06-10-2022 End: 06-10-2022 Office outpatient visit 15 minutes Coby De Jesus MD Work Phone: Weight [facility] Comment on above: Type 2 diabetes christina itus without complication, without long- term current use of insulin ([facility]) ([facility]) (Primary Dx); BMI 50.0-59.9, adult (CMS/HCC) (HCC); Class 3 severe obesity with serious comorbidity and body mass index (BMI) of 50.0 to 59.9 in adult, unspecified obesity type (HCC) Start: 05-04-2022 End: 05-04-2022 [facility] Start: 05-04-2022 End: 05-04-2022 ambulatory [facility] Work Phone: Start: 04-11-2022 Transcribe Orders Pari kat MD Work Phone: [facility] Comment on above: Insomnia, unspecifie d (Primary Dx) Start: 04-10-2022 ambulatory UNKNOWN PROVIDER [facility] Start: 04-08-2022 End: 04-08-2022 Emergency department patient visit [facility]-Emergency Department Start: 03-31-2022 ambulatory [facility] Start: 03-31-2022 End: 03-31-2022 Subsequent hospital visit by physician Rk Mcclain MD Work Phone: [facility] Stress Lab Comment on above: Hypertension, unspec ified type; Chest pain, unspecified type Start: 03-06-2022 ambulatory [employer] [facility] Start: 03-06-2022 End: 03-06-2022 Subsequent hospital visit by physician Coby De Jesus MD Work Phone: [facility] [place] [facility] Start: 02-25-2022 End: 02-25-2022 Emergency department patient visit [facility]-Emergency Department Start: 01-28-2022 ambulatory UNKNOWN PROVIDER [facility] Start: 01-28-2022 End: 01-28-2022 Subsequent hospital visit by physician Coby De Jesus MD Work Phone: [facility] [place] [facility] Start: 01-26-2022 End: 01-26-2022 [facility]mission [facility] Stephon Benton [facility] Start: 12-08-2021 End: 12-08-[address] Stephon Benton Work Phone: [facility] Orthopaedic Specia Start: 11-10-2021 End: 11-10-2021 Admission to same day surgery center [facility]Surgical Day Care Start: 10-16-2021 End: 10-16-2021 Emergency department patient visit [facility]Emergency Department Start: 10-11-2021 End: 10-12-2021 Emergency department patient visit [facility]-Emergency Department Start: 09-23-2021 ambulatory [facility] Start: 09-09-2021 End: 09-09-2021 Discharged Recurring [facility]-Physical Therapy Start: 09-03-2021 End: 09-03-2021 Emergency department patient visit [facility]Emergency Department Start: 09-01-2021 End: 09-01-[facility]21 [facility] Start: 09-01-2021 End: 09-01-2021 Subsequent hospital visit by physician Salome Alicia MD Work Phone: [facility] General Surgery Comment on above: Arrived Start: 08-25-2021 ambulatory [facility] Start: 08-25-2021 Encounter for other preprocedural examination Salome [employer] Start: 08-20-2021 ambulatory [facility] Start: 07-23-2021 End: 07-23-2021 Emergency department patient visit [facility]Emergency Department Start: 03-24-2021 End: 03-24-2021 Subsequent hospital visit by physician [facility] Work Phone: Radiology Comment on above: Cough [R05] Start: 03-08-2020 End: 03-08-2020 Subsequent hospital visit by physician Olive Mccarthy Work Phone: [facility] Ultrasound Comment on above: Epigastric pain Start: 06-10-2018 Patient encounter procedure Kassi Muniz Facility:[facility] Start: 02-19-2018 End: 02-19-2018 Patient encounter procedure Kassi Muniz Facility:[facility] Start: 12-27-2017 Patient encounter Flavia posada:[facility] Start: 08-31-2017 End: 09-01-2017 Patient encounter procedure Valentine Bello Tyron Facility:[facility] Start: 07-21-2017 Ambulatory CHRISSY BROOKS [facility] Start: 07-14-2017 Ambulatory CHRISSY Camejo [facility] Start: 07-09-2017 End: 07-09-2017 Patient encounter procedure Denis Chaudhari Facility:[facility] Start: 06-16-2017 End: 06-17-2017 Patient encounter procedure Denis Chaudhari Facility:[facility] Start: 06-07-2017 Ambulatory Pari Saab [facility] Start: 06-02-2017 End: 06-02-2017 Ambulatory [facility] Start: 05-01-2017 Ambulatory [facility] Start: 04-27-2017 End: 04-27-[address] [facility] Start: 04-20-2017 Ambulatory [facility] Start: 04-06-2017 End: 04-06-2017 Ambulatory [facility] Start: 02-22-2017 Patient encounter Flavia Barney cility:[facility] Procedures Date Procedure Procedure Detail Performing Clinician Start: 11-13-2024 Local anesthetic cer vical epidural block Dr. Denis Garcia MD Work Phone: Start: 10-09-2024 X-ray of cervical spine Dr. Denis Garcia MD Work Phone: Start: 08-14-2024 Local anesthetic lum bar epidural block Dr. Denis Garcia MD Work Phone: Start: 08-14-2024 Fluoroscopic guidance Jordana Garcia MD Work Phone: Start: 08-14-2024 X-ray of lumbosacral spine Dr. Denis Garcia MD Work Phone: Start: 09-03-2023 Radiologic exam ches t 2 views Denis Garcia MD Work Phone: Start: 09-03-2023 Ecg routine ecg w/le ast 12 lds i&r only [facility] Provider Start: 08-23-2023 X-ray of lumbar spin e, two or three views Start: 06-14-2023 Fluoroscopic guidance Start: 06-14-2023 Radio Frequency Abla tion (Right) Dr. Denis Garcia Work Phone: Start: 06-14-2023 X-ray of lumbar spin e, two or three views Start: 03-15-2023 Radio Frequency Abla tion (Left) Start: 03-15-2023 Fluoroscopic guidance Jordana Garcia Work Phone: Start: 03-15-2023 X-ray of lumbar spin e, two or three views Dr. Denis Garcia Work Phone: Start: 03-03-2023 INFLUENZA VACCINE, A GE 6 MO - 64 YR, QUADRIVALENT (AFLURIA, FLULAVAL, FLUZONE) Denis Garcia MD Work Phone: Start: 03-03-2023 Hemoglobin A1c/Hemoglobin.total in Blood Denis Garcia MD Work Phone: Start: 12-08-2022 Radiologic exam ches t 2 views Denis Garcia MD Work Phone: Start: 09-14-2022 Radio Frequency Abla tion (Right) Start: 09-14-2022 Fluoroscopic guidance Start: 09-14-2022 X-ray of lumbar spin e, two or three views Start: 07-13-2022 Fluoroscopic guidance Start: 07-13-2022 Radio Frequency Abla tion (Left) Start: 07-13-2022 X-ray of lumbosacral spine Start: 05-04-2022 Local anesthetic lum bar epidural block Start: 05-04-2022 Injection of facet joint Start: 05-04-2022 Injection of spinal epidural space Start: 05-04-2022 X-ray of lumbosacral spine Start: 04-08-2022 Plain chest X-ray Start: 04-07-2022 Lipid 1996 panel - S estefani or Plasma Coby De Jesus MD Work Phone: Start: 03-31-2022 ECHOCARDIOGRAM PHARMACOLOGICAL STRESS TEST Rk Mcclain MD Work Phone: Start: 01-26-2022 Local anesthetic lum bar facet joint nerve block Dr. Stephon Benton Work Phone: Start: 01-26-2022 Injection of spinal epidural space Dr. Stephon Benton Work Phone: Start: 01-26-2022 X-ray of lumbosacral spine [facility] Start: 01-26-2022 End: 01-26-2022 Injection of facet joint Dr. Stephon Llanos on Work Phone: Start: 12-08-2021 X-ray of lumbar spin e, two or three views Dr. Stephon Benton Work Phone: Start: 12-04-2021 Lipid 1996 panel - S estefani or Plasma Coby De Jesus MD Work Phone: Start: 11-10-2021 Injection of spinal epidural space Dr. Stephon Benton Work Phone: Start: 11-10-2021 Injection using fluo roscopic guidance Dr. Stephon Benton Work Phone: Start: 11-10-2021 Local anesthetic sac ral epidural block Start: 10-16-2021 Transvaginal echography Start: 10-11-2021 Computed tomography of abdomen and pelvis with intravenous contrast Start: 10-11-2021 Urine culture Start: 09-01-2021 Ecg routine ecg w/le ast 12 lds w/i&r Salome Alicia MD Work Phone: Start: 09-01-2021 Gluc bld gluc mntr d ev cleared fda spec home use Salome Alicia MD Work Phone: Start: 09-01-2021 Urine test visual color cmprsn meths Maurice Quintana MD Work Phone: Start: 09-01-2021 [place] STUDIO 3 Salome Alicia MD Work Phone: Start: 07-23-2021 CT of head without contrast Start: 05-28-2021 Microscopic observat ion [Identifier] in Cervix by Cyto stain Salome Alicia MD Work Phone: Start: 03-24-2021 Radiologic exam ches t 2 views Idania Aguilar PARTS SALVAGER.[employer] SALES CONSULTANT Work Phone: Start: 03-08-2020 Us abdominal real ti me w/image documentation Olive Mccarthy Work Phone: Cholecystectomy Kassi choi Tonsillectomy Kassi Muniz Urine culture Dr. Stephon florence Work Phone: Plan of Treatment Date Care Activity Detail Author Start: 01-02-2052 Pneumococcal 0-64 years Vaccine (2 of 2 - PPSV23) Pneumococcal 0-64 years Vaccine (2 of 2 - PPSV23) [facility] Start: 2047 RSV Immunization aged 60 or older (1 - 1-dose 60+ series) RSV Immunization aged 60 or older (1 - 1-dose 60+ series) [facility] Start: 2037 Zoster Vaccines (1 of 2) Zoster Vaccines (1 of 2) [facility] Start: 08-10-2032 DTaP/Tdap/Td Vaccines (2 - Td or Tdap) DTaP/Tdap/Td Vaccines (2 - Td or Tdap) [facility] Start: 08-10-2032 Urine microalbumin profile [place] [facility] Start: 05-28-2026 Screening for malignant neoplasm of cervix [facility] Start: 12-25-2025 Annual PCP Team Chronic Disease Visit Annual PCP Team Chronic Disease Visit [facility] Start: 12-25-2025 Diabetic foot examination Diabetic Foot Exam [facility] Start: 12-25-2025 Hepatitis B screening Urine Albumin:Creatinine Ratio [facility] Start: 12-25-2025 Hepatitis B surface antibody level LDL Cholesterol [facility] Start: 07-09-2025 End: 07-09-2025 Patient encounter procedure 07/09/2025 8:00 AM EST Office Visit Internal Medicine [facility] [address] [place] [place] [id number] Ginny Gomez PARTS SALVAGER.[employer] SALES CONSULTANT [address] [place] [place] [place] [id number] follow up 6 months Internal Medicine [facility] Comment on above: follow up 6 months Start: 06-26-2025 Hemoglobin A1c measurement HbA1C [facility] Start: 03-06-2025 Annual PCP Team Chronic Disease Visit Annual PCP Team Chronic Disease Visit [facility] Start: 03-06-2025 Covid-19 Vaccine ( season) Covid-19 Vaccine ( season) [facility] Comment on above: Postponed from 02/27/2024 (Declined at t his time) Start: 03-06-2025 Covid-19 Vaccine ( season) Covid-19 Vaccine ( season) [facility] Comment on above: Postponed from 02/27/2024 (Declined at t his time) Start: 03-06-2025 Pneumococcal vaccination Pneumococcal Vaccine (2 of 2 - PCV) [facility] Comment on above: Postponed from 03/17/2023 (Declined at t his time) Start: 02-26-2025 Influenza vaccination [facility] Start: 01-02-2025 End: 04-03-2025 ALK PHOS ISOENZYM BL ALK PHOS ISOENZYM BL Lab Routine Elevated alkaline phosphatase level Expected: 01/02/2025, Expires: 04/03/2025 [facility] Comment on above: Expected: 01/02/2025, Expires: Start: 01-02-2025 End: 04-03-2025 Gamma glutamyl transferase [Enzymatic activity/volume] in Serum or Plasma GGT Lab Routine Elevated alkaline phosphatase level Expected: 01/02/2025, Expires: 04/03/2025 [facility] Comment on above: Expected: 01/02/2025, Expires: Start: 01-02-2025 End: 04-03-2025 Parathyrin.intact [Mass/volume] in Serum or Plasma PTH INTACT Lab Routine Vitamin D deficiency Expected: 01/02/2025, Expires: 04/03/2025 [facility] Comment on above: Expected: 01/02/2025, Expires: Start: 01-02-2025 End: 04-03-2025 Phosphate [Mass/volume] in Serum or Plasma PHOSPHORUS INORGANIC Lab Routine Vitamin D deficiency Expected: 01/02/2025, Expires: 04/03/2025 [facility] Work Phone: Comment on above: Expected: 01/02/2025, Expires: Start: 01-02-2025 End: 04-03-2025 Tissue transglutaminase IgA Ab [Units/volume] in Serum TRANSGLUTAMINASE IGA Lab Routine Vitamin D deficiency Expected: 01/02/2025, Expires: 04/03/2025 [facility] Comment on above: Expected: 01/02/2025, Expires: Start: 12-25-2024 End: 03-26-2025 25-hydroxyvitamin D3 [Mass/volume] in Serum or Plasma [facility] Comment on above: Expected: 12/25/2024, Expires: Start: 12-25-2024 End: 03-26-2025 Comprehensive metabolic 2000 panel - Serum or Plasma [facility] Comment on above: Expected: 12/25/2024, Expires: Start: 12-25-2024 End: 03-26-2025 Hemoglobin A1c in Blood [facility] Comment on above: Expected: 12/25/2024, Expires: Start: 12-25-2024 Influenza vaccination Influenza Vaccine (#1) [facility] Comment on above: Postponed from 02/27/2024 (Declined at t his time) Start: 12-25-2024 End: 03-26-2025 LIPID PANEL, NONFASTING [facility] [facility] Work Phone: Comment on above: Expected: 12/25/2024, Expires: Start: 12-25-2024 End: 03-26-2025 Microalbumin/Creatinine [Mass Ratio] in Urine [facility] Comment on above: Expected: 12/25/2024, Expires: Start: 11-13-2024 Fluoroscopy guided injection of cervical spinal nerve root [facility] Start: 11-13-2024 X-ray of cervical spine Cerv Spine 2 or [address] [facility] Start: 11-13-2024 Patient discharge [facility] Start: 09-02-2024 Annual PCP Team Chronic Disease Visit Annual PCP Team Chronic Disease Visit [facility] Start: 08-14-2024 Patient discharge [facility] Start: 07-05-2024 Hemoglobin A1c measurement Diabetes: Hemoglobin A1C [facility] Start: 06-02-2024 Annual PCP Team Chronic Disease Visit Annual PCP Team Chronic Disease Visit [facility] Start: 06-02-2024 Covid-19 Vaccine () Covid-19 Vaccine () [facility] Comment on above: Postponed from 02/26/2023 (Declined at t his time) Start: 05-28-2024 Screening for malignant neoplasm of cervix Pap smear [facility] Start: 04-10-2024 End: 04-10-2024 Patient encounter procedure 04/10/2024 8:20 AM EDT Office Visit [facility] [place] [address] [place] [address] Ginny Gomez, [employer]S SAL[employer] [address] [place] [address] 1 month follow up [facility] [place] Comment on above: 1 month follow up Start: 04-07-2024 Glaucoma screening Dilated Retinal Exam [facility] Start: 04-07-2024 Hepatitis C antibody, confirmatory test Dilated Retinal Exam [facility] Start: 03-15-2024 End: 03-15-2024 Patient encounter procedure 03/15/2024 9:00 AM EDT Office Visit [facility] [address] [place] [address] Salome Alicia MD [address] [facility] [address] [place] [address] [facility] Start: 03-06-2024 End: 06-05-2024 25-hydroxyvitamin D3 [Mass/volume] in Serum or Plasma VITAMIN D 25 HYDROXY Lab Routine Vitamin D deficiency Expected: 03/06/2024, Expires: 06/05/2024 [facility] Comment on above: Expected: 03/06/2024, Expires: Start: 03-06-2024 End: 06-05-2024 CBC W Auto Differential panel - Blood COMPLETE BLOOD COUNT AND DIFFERENTIAL Lab Routine Controlled type 2 diabetes mellitus without complication, without long-term current use of insulin (HCC) Expected: 03/06/2024, Expires: 06/05/2024 [facility] Comment on above: Expected: 03/06/2024, Expires: Start: 03-06-2024 End: 06-05-2024 Comprehensive metabolic 2000 panel - Serum or Plasma COMPREHENSIVE METABOLIC PANEL Lab Routine Controlled type 2 diabetes mellitus without complication, without long-term current use of insulin (HCC) Expected: 03/06/2024, Expires: 06/05/2024 [facility] Comment on above: Expected: 03/06/2024, Expires: Start: 03-06-2024 End: 06-05-2024 Hemoglobin A1c in Blood HEMOGLOBIN A1C Lab Routine Controlled type 2 diabetes mellitus without complication, without long-term current use of insulin (HCC) Expected: 03/06/2024, Expires: 06/05/2024 [facility] Comment on above: Expected: 03/06/2024, Expires: Start: 03-06-2024 End: 06-05-2024 Lipid 1996 panel - Serum or Plasma LIPID PANEL BASIC Lab Routine Controlled type 2 diabetes mellitus without complication, without long-term current use of insulin (HCC) Expected: 03/06/2024, Expires: 06/05/2024 [facility] Comment on above: Expected: 03/06/2024, Expires: Start: 03-06-2024 End: 06-05-2024 Microalbumin/Creatinine [Mass Ratio] in Urine ALBUMIN/CREATININE RATIO, URINE Lab Routine Controlled type 2 diabetes mellitus without complication, without long-term current use of insulin (HCC) Expected: 03/06/2024, Expires: 06/05/2024 [facility] Work Phone: Comment on above: Expected: 03/06/2024, Expires: Start: 03-03-2024 ANNUAL PCP TEAM CHRONIC DISEASE VISIT ANNUAL PCP TEAM CHRONIC DISEASE VISIT [facility] Start: 02-28-2024 Glaucoma screening Diabetes: Retinopathy Screening [facility] Start: 02-27-2024 Covid-19 Vaccine () Covid-19 Vaccine () [facility] Start: 02-27-2024 Influenza vaccination Influenza Vaccine (#1) [facility] Start: 01-03-2024 Hemoglobin A1c measurement HbA1C [facility] Start: 12-09-2023 ANNUAL PCP TEAM CHRONIC DISEASE VISIT ANNUAL PCP TEAM CHRONIC DISEASE VISIT [facility] Start: 12-09-2023 Hepatitis B screening URINE ALBUMIN:CREATININE RATIO [facility] Start: 12-09-2023 Hepatitis B surface antibody level LDL CHOLESTEROL [facility] Start: 12-04-2023 End: 03-04-2024 ALBUMIN/CREAT RATIO RND UR ALBUMIN/CREAT RATIO RND UR Lab Routine Controlled type 2 diabetes mellitus without complication, without long-term current use of insulin (HCC) Expected: 12/04/2023, Expires: 03/04/2024 [facility] Work Phone: Comment on above: Expected: 12/04/2023, Expires: Start: 12-04-2023 End: 03-04-2024 CBC panel - Blood by Automated count CBC Lab Routine Leukocytosis, unspecified type Expected: 12/04/2023, Expires: 03/04/2024 [facility] Work Phone: Comment on above: Expected: 12/04/2023, Expires: Start: 12-04-2023 End: 03-04-2024 Comprehensive metabolic 2000 panel - Serum or Plasma COMP METABOLIC PANEL Lab Routine Controlled type 2 diabetes mellitus without complication, without long-term current use of insulin (HCC) Expected: 12/04/2023, Expires: 03/04/2024 [facility] Work Phone: Comment on above: Expected: 12/04/2023, Expires: Start: 12-04-2023 End: 03-04-2024 Hemoglobin A1c in Blood HGB A1C Lab Routine Controlled type 2 diabetes mellitus without complication, without long-term current use of insulin (HCC) Expected: 12/04/2023, Expires: 03/04/2024 [facility] Work Phone: Comment on above: Expected: 12/04/2023, Expires: 4 Start: 12-04-2023 End: 03-04-2024 Lipid 1996 panel - Serum or Plasma LIPID PANEL BASIC Lab Routine Controlled type 2 diabetes mellitus without complication, without long-term current use of insulin (HCC) Expected: 12/04/2023, Expires: 03/04/2024 [facility] Work Phone: Comment on above: Expected: 12/04/2023, Expires: 4 Start: 08-23-2023 [facility] Start: 08-13-2023 Diabetic retinal exam Diabetic retinal exam [facility] Start: 08-10-2023 3 comp foot [facility] Start: 08-10-2023 ANNUAL PCP TEAM CHRONIC DISEASE VISIT ANNUAL PCP TEAM CHRONIC DISEASE VISIT [facility] Start: 08-10-2023 COVID-19 VACCINE (3 - Booster for Moderna series) COVID-19 VACCINE (3 - Booster for Moderna series) [facility] Comment on above: Postponed from 02/24/2021 (Declined at t his time) Start: 08-10-2023 COVID-19 VACCINE (3 - Moderna series) COVID-19 VACCINE (3 - Moderna series) [facility] Comment on above: Postponed from 02/24/2021 (Declined at t his time) Start: 08-10-2023 Diabetic foot examination Diabetic Foot Exam [facility] Start: 06-14-2023 Anes dx/ther nerve block/injection prone pos ANESTH N BLOCK/INJ PRONE [facility] Start: 06-14-2023 Dstr nrolytc agnt parverteb fct addl lmbr/sacral DESTROY L/S FACET JNT ADDL [facility] Start: 06-14-2023 Dstr nrolytc agnt parverteb fct sngl lmbr/sacral DESTROY LUMB/SAC FACET JNT [facility] Start: 06-14-2023 Fluoroscopic guidance O.R. Fluoro for [facility] Start: 06-14-2023 X-ray of lumbar spine, two or three views Lumbar Spine 2 or 3 Views [facility] Start: 06-14-2023 Patient discharge [facility] Start: 06-09-2023 Hemoglobin A1c/Hemoglobin.total in Blood HBA1C [facility] Start: 06-02-2023 End: 08-02-2023 25-hydroxyvitamin D3 [Mass/volume] in Serum or Plasma VITAMIN D 25 HYDROXY Lab Routine Vitamin D deficiency Expected: 06/02/2023, Expires: 08/02/2023 [facility] Work Phone: Comment on above: Expected: 06/02/2023, Expires: 4 Start: 06-02-2023 End: 08-02-2023 Basic metabolic 2000 panel - Serum or Plasma BASIC METABOLIC PNL Lab Routine Controlled type 2 diabetes mellitus without complication, without long-term current use of insulin (HCC) Expected: 06/02/2023, Expires: 08/02/2023 [facility] Work Phone: Comment on above: Expected: 06/02/2023, Expires: 4 Start: 06-02-2023 End: 08-02-2023 Hemoglobin A1c in Blood HGB A1C Lab Routine Controlled type 2 diabetes mellitus without complication, without long-term current use of insulin (HCC) Expected: 06/02/2023, Expires: 08/02/2023 [facility] Work Phone: Comment on above: Expected: 06/02/2023, Expires: 4 Start: 06-02-2023 Hemoglobin A1c/Hemoglobin.total in Blood HBA1C [facility] Start: 04-07-2023 Hemoglobin A1c measurement Diabetes: Hemoglobin A1C [facility] Start: 04-07-2023 Hepatitis B surface antibody level LDL CHOLESTEROL [facility] Start: 04-07-2023 Lipid panel Lipid Panel [facility] Start: 03-17-2023 PNEUMOCOCCAL (2 - PCV) PNEUMOCOCCAL (2 - PCV) [facility] Start: 03-17-2023 Pneumococcal 0-64 years Vaccine (2 - PCV) Pneumococcal 0-64 years Vaccine (2 - PCV) [facility] Start: 03-17-2023 Pneumococcal vaccination [facility] Start: 03-17-2023 Pneumococcal Vaccine: Pediatrics (0 to 5 Years) and At-Risk Patients (6 to 64 Years) (2 - PCV) Pneumococcal Vaccine: Pediatrics (0 to 5 Years) and At-Risk Patients (6 to 64 Years) (2 - PCV) [facility] Start: 03-17-2023 Pneumococcal Vaccine: Pediatrics (0 to 5 Years) and At-Risk Patients (6 to 64 Years) (2 of 2 - PCV) Pneumococcal Vaccine: Pediatrics (0 to 5 Years) and At-Risk Patients (6 to 64 Years) (2 of 2 - PCV) [facility] Start: 03-15-2023 Anes dx/ther nerve block/injection prone pos ANESTH N BLOCK/INJ PRONE [facility] Start: 03-15-2023 Dstr nrolytc agnt parverteb fct addl lmbr/sacral DESTROY L/S FACET JNT ADDL [facility] Start: 03-15-2023 Dstr nrolytc agnt parverteb fct sngl lmbr/sacral DESTROY LUMB/SAC FACET JNT [facility] Start: 03-15-2023 Fluoroscopic guidance O.R. Fluoro for [facility] Start: 03-15-2023 X-ray of lumbar spine, two or three views Lumbar Spine 2 or 3 Views [facility] Start: 03-15-2023 Patient discharge [facility] Start: 03-10-2023 End: 03-10-2023 Patient encounter procedure 03/10/2023 9:00 AM EDT Office Visit [facility] [address] [place] [address] Salome Alicia MD [address] [place] [address] [facility] Start: 02-27-2023 Diabetic retinal exam Diabetic retinal exam [facility] Start: 02-26-2023 Covid-19 Vaccine ( season) Covid-19 Vaccine ( season) [facility] Start: 02-26-2023 Influenza vaccination [facility] Start: 02-07-2023 Hemoglobin A1c/Hemoglobin.total in Blood HBA1C [facility] Start: 12-24-2022 End: 08-29-2023 Urinalysis complete panel - Urine URINALYSIS, WITH MICROSCOPIC Lab Routine Microscopic hematuria Expected: 12/24/2022, Expires: 02/23/2023 [facility] Work Phone: Comment on above: Expected: 12/24/2022, Expires: 3 Start: 12-04-2022 Hepatitis B screening URINE ALBUMIN:CREATININE RATIO [facility] Start: 12-04-2022 Lipid panel [facility] Start: 12-04-2022 Urine screening for protein [facility] Start: 09-23-2022 End: 11-23-2022 CBC W Auto Differential panel - Blood CBC + DIFF Lab STAT Thrombocytosis Leukemoid reaction Expected: 09/23/2022, Expires: 11/23/2022 [facility] Work Phone: Comment on above: Expected: 09/23/2022, Expires: 3 Start: 09-23-2022 End: 11-23-2022 MYELOPROLIFERATIVE NEOPLASM PANEL BLOOD [facility] Work Phone: Comment on above: Expected: 09/23/2022, Expires: 3 Start: 09-14-2022 Anes dx/ther nerve block/injection prone pos ANESTH N BLOCK/INJ PRONE [facility] Start: 09-14-2022 Dstr nrolytc agnt parverteb fct addl lmbr/sacral DESTROY L/S FACET JNT ADDL [facility] Start: 09-14-2022 Dstr nrolytc agnt parverteb fct sngl lmbr/sacral DESTROY LUMB/SAC FACET T [facility] Start: 09-14-2022 X-ray of lumbar spine, two or three views Lumbar Spine 2 or 3 Views [facility] Start: 09-14-2022 XR Lumbar spine 2 or 3 Views [facility] Start: 09-14-2022 Patient discharge [facility] Start: 09-04-2022 End: 09-04-2022 Patient encounter procedure [facility] Start: 09-02-2022 End: 09-02-2022 Patient encounter procedure 09/02/2022 Office Visit Obstetrics and Gynecology Salome Alicia MD [address] [place] [address] [facility] Start: 08-24-2022 End: 08-24-2022 Patient encounter procedure 08/24/2022 Office Visit Endocrinology Pari Leary, [employer] - [employer] [address] [place] [address] [facility] Start: 08-10-2022 End: 10-10-2022 CBC W Auto Differential panel - Blood [facility] Work Phone: Comment on above: Expected: 08/10/2022, Expires: 3 Start: 08-10-2022 End: 10-10-2022 Hemoglobin A1c in Blood [facility] Work Phone: Comment on above: Expected: 08/10/2022, Expires: 3 Start: 07-24-2022 End: 07-24-2022 Patient encounter procedure 07/24/2022 Office Visit Endocrinology Sonia House MD [address] [facility] [address] [place] [address] Endocrinology [facility] Start: 07-13-2022 Dstr nrolytc agnt parverteb fct addl lmbr/sacral DESTROY L/S FACET JNT ADDL [facility] Start: 07-13-2022 Dstr nrolytc agnt parverteb fct sngl lmbr/sacral DESTROY LUMB/SAC FACET JNT [facility] Start: 07-13-2022 Radex spine lumbosacral 2/3 views X-RAY EXAM L-S SPINE 2/3 VWS [facility] Start: 07-13-2022 X-ray of lumbar spine, two or three views Lumbar Spine 2 or 3 Views [facility] Start: 07-13-2022 XR Lumbar spine 2 or 3 Views [facility] Start: 07-13-2022 Patient discharge [facility] Start: 07-08-2022 Hemoglobin A1c measurement Diabetes: Hemoglobin A1C [facility] Start: 06-08-2022 End: 06-08-2022 Telemedicine consultation with patient 06/08/2022 Telemedicine Internal Medicine Pari Noyola MD [address] [place] [address] [facility] Start: 05-19-2022 Creatinine measurement Creatinine monitoring [facility] Start: 05-19-2022 Hemoglobin A1c measurement A1C test (Diabetic or Prediabetic) [facility] Start: 05-19-2022 Lipid panel Lipid screen [facility] Start: 05-19-2022 Potassium monitoring Potassium monitoring [facility] Start: 05-19-2022 Urine screening for protein Diabetic microalbuminuria test [facility] Start: 05-14-2022 Screening for malignant neoplasm of cervix Cervical cancer screen [place], [place] Start: 05-04-2022 Njx dx/ther agt pvrt facet jt lmbr/sac 1 level INJ PARAVERT F JNT L/S 1 [facility] Start: 05-04-2022 Njx dx/ther agt pvrt facet jt lmbr/sac 2nd level INJ PARAVERT F JNT L/S 2 [facility] Start: 05-04-2022 Njx dx/ther agt pvrt facet jt lmbr/sac 3+ level INJ PARAVERT F JNT L/S 3 [facility] Start: 05-04-2022 X-ray of lumbosacral spine L/S Spine Min 4 Views [facility] Work Phone: Start: 05-04-2022 XR Spine Lumbar and Sacrum GE 4 Views [facility] Work Phone: Start: 05-04-2022 Patient discharge [facility] Start: 04-13-2022 End: 04-13-2022 Patient encounter procedure 04/13/2022 Office Visit Cardiology Rk Mcclain MD [address] [address] [facility] Start: 04-11-2022 End: 04-11-2023 Polysomnography [facility] Routine Insomnia, unspecified Expected: 04/11/2022 (Approximate), Expires: 04/11/2023 [facility] Work Phone: Comment on above: Expected: 04/11/2022 (Approximate), Expi res: 04/11/2023 Start: 04-10-2022 End: 04-10-2022 Patient encounter procedure 04/10/2022 Office Visit Weight Management Coby De Jesus MD [address] [place] [address] [facility] Start: 04-08-2022 [facility] Start: 03-31-2022 End: 03-31-2022 Patient encounter procedure 03/31/2022 Appointment Echocardiography [facility] Start: 03-06-2022 Hemoglobin A1c measurement [facility] Start: 03-06-2022 End: 03-06-2022 Patient encounter procedure 03/06/2022 Office Visit Weight Management Coby De Jesus MD [address] [place] [address] [facility] Start: 02-26-2022 Influenza vaccination [facility] Start: 02-04-2022 End: 02-04-2022 Patient encounter procedure 02/04/2022 Office Visit Cardiology Rk Mcclain MD [address] [place] [address] [facility] Start: 01-29-2022 Diabetic retinal exam Diabetic retinal exam [place], [place] Start: 01-26-2022 Anes dx/ther nerve block/injection prone pos ANESTH N BLOCK/INJ PRONE [facility] Work Phone: Start: 01-26-2022 Influenza vaccination Flu vaccine (#1) [facility] Start: 01-26-2022 Njx dx/ther agt pvrt facet jt lmbr/sac 1 level INJ PARAVERT F JNT L/S 1 [facility] Work Phone: Start: 01-26-2022 Njx dx/ther agt pvrt facet jt lmbr/sac 2nd level INJ PARAVERT F JNT L/S 2 LEV [facility] Work Phone: Start: 01-26-2022 X-ray of lumbosacral spine L/S Spine Min 4 Views [facility] Work Phone: Start: 01-26-2022 XR Spine Lumbar and Sacrum GE 4 Views [facility] Work Phone: Start: 01-26-2022 Urine test [facility] Work Phone: Start: 01-26-2022 Patient discharge [facility] Work Phone: Start: 11-16-2021 Hemoglobin A1c/Hemoglobin.total in Blood HBA1C [facility] Start: 11-10-2021 Anes dx/ther nerve block/injection prone pos ANESTH N BLOCK/INJ PRONE [facility] Work Phone: Start: 11-10-2021 Njx dx/ther sbst intrlmnr lmbr/sac w/img gdn NJX INTERLAMINAR LMBR/SAC [facility] Work Phone: Start: 11-10-2021 Injection of spinal epidural space OR-Steroi/Epid Inj/Lum Sac/1st [facility] Work Phone: Start: 11-10-2021 Injection using fluoroscopic guidance Fluor Guidance for Spine Inj [facility] Work Phone: Start: 11-10-2021 Patient discharge [facility] Work Phone: Start: 10-11-2021 Bacteria identified in Urine by Culture Urine Culture [facility] Work Phone: Start: 10-10-2021 End: 10-10-2021 Patient encounter procedure 10/10/2021 Office Visit Weight Management Coby De Jesus MD [address] [place] [address] [facility] Start: 09-24-2021 End: 09-24-2021 Patient encounter procedure 09/24/2021 Office Visit Obstetrics and Gynecology Salome Alicia MD [address] [place] [address] [facility] Start: 09-15-2021 End: 09-15-2021 Patient encounter procedure 09/15/2021 Office Visit Endocrinology Sonia Anderson MD [address] [place] [address] Endocrinology [facility] Start: 06-01-2021 COVID-19 Vaccine (3 - Booster for Moderna series) COVID-19 Vaccine (3 - Booster for Moderna series) [facility] Start: 02-26-2021 Influenza vaccination Flu vaccine (#1) [facility] Start: 02-24-2021 COVID-19 Vaccine (3 - Booster for Moderna series) COVID-19 Vaccine (3 - Booster for Moderna series) [facility] Start: 11-21-2020 HbA1c (Bld) [Mass fraction] A1C test (Diabetic or Prediabetic) [place] Start: 11-21-2020 Lipid panel Lipid screen [place] Start: 07-08-2020 End: 07-08-2020 Office Visit Endocrinology Start: 03-20-2020 Diabetic microalbuminuria test Diabetic microalbuminuria test [place] Start: 03-20-2020 Pneumococcal 0-64 years Vaccine (2 - PCV) Pneumococcal 0-64 years Vaccine (2 - PCV) [facility] Start: 02-27-2020 Influenza vaccination Flu vaccine (#1) [place] Start: 2017 HPV TESTING HPV TESTING [facility] Start: 2017 Screening for malignant neoplasm of cervix HPV Testing [facility] Start: 01-02-2008 PAP TESTING PAP TESTING [facility] Start: 01-02-2008 Screening for malignant neoplasm of cervix [facility] Start: 06-30-2007 Hepatitis B vaccine (2 of 3 - Risk 3-dose series) Hepatitis B vaccine (2 of 3 - Risk 3-dose series) [facility] Start: 06-30-2007 Hepatitis B vaccine (2 of 4 - 4-dose series) Hepatitis B vaccine (2 of 4 - 4-dose series) [facility] Start: 06-30-2007 Hepatitis B Vaccines (2 of 3 - 19+ 3-dose series) Hepatitis B Vaccines (2 of 3 - 19+ 3-dose series) [facility] Start: 06-30-2007 Hepatitis B Vaccines (2 of 3 - 3-dose series) Hepatitis B Vaccines (2 of 3 - 3-dose series) [facility] Start: 2006 DTaP/Tdap/Td vaccine (1 - Tdap) DTaP/Tdap/Td vaccine (1 - Tdap) [facility] Start: 2006 DTaP/Tdap/Td Vaccines (1 - Tdap) DTaP/Tdap/Td Vaccines (1 - Tdap) [facility] Start: 2006 Hepatitis B vaccine (1 of 3 - Risk 3-dose series) Hepatitis B vaccine (1 of 3 - Risk 3-dose series) [place] Start: 2005 BP Controlled (<130/80) BP Controlled (<130/80) [facility] Start: 2005 Hepatitis C screening [facility] Start: 2002 HIV screening HIV screen [facility] Start: 1999 Depression Monitoring Depression Monitoring [facility] Start: 1999 Depresssion Monitoring Depresssion Monitoring [facility] Start: 1997 Diabetic foot examination [facility] Start: 1997 Glaucoma screening Diabetes: Retinopathy Screening [facility] Start: 1997 Hepatitis C antibody, confirmatory test DILATED RETINAL EXAM [facility] Start: 1997 Preventive dental service Diabetes: Dental Exam [facility] Start: 01-02-1988 MMR Vaccines (1 of 1 - Standard series) MMR Vaccines (1 of 1 - Standard series) [facility] Start: 01-02-1988 Varicella vaccination Varicella Vaccines (1 of 2 - 2-dose childhood series) [facility] Start: 01-02-1988 Varicella vaccine (1 of 2 - 2-dose childhood series) Varicella vaccine (1 of 2 - 2-dose childhood series) [facility] Start: 1987 Hepatitis C screening Hepatitis C screen [facility] Start: 1987 HIV screening HIV Screening [facility] Blood glucose - POCT Blood gluco se - POCT Point of Care Testing STAT As Needed until discontinued starting 09/01/2021 [facility] Work Phone: Comment on above: As Needed until discontinued starting CBC W Auto Different ial panel - Blood COMPLETE BLOOD COUNT AND DIFFERENTIAL Lab Routine Controlled type 2 diabetes mellitus without complication, without long-term current use of insulin ([facility]) Primary hypertension 12/25/2024 9:22 AM EDT [facility] CHLAMYDIA/N.GONORRHO EAE AND T. VAGINALIS RNA, QL TMA ([facility]) Chlamydia/N.Gonorrhoeae and T. Vaginalis RNA, QL TMA ([facility]) Microbiology Routine Screen for STD (sexually transmitted disease) Ordered: 03/10/2023 [facility] Work Phone: Comment on above: Ordered: 03/10/2023 End: 09-02-2024 ECG COMPLETE ECG COMPLETE ECG Routine Pleurodynia 1 Occurrences starting 09/03/2023 until 09/02/2024 [facility] Work Phone: Comment on above: 1 Occurrences starting 09/03/2023 until 09/02/2024 ECG COMPLETE ECG COMPLETE ECG 09/03/2023 9:30 AM EST [facility] EKG 12 Lead EKG 12 Lead ECG STAT 09/01/2021 11:11 AM EST [employer] Work Phone: End: 09-01-2021 INITIATE PACU OXYGEN THERAPY PROTOCOL Initiate PACU Oxygen Therapy Protocol Respiratory Care Routine Continuous until discontinued starting 09/01/2021 [facility] Work Phone: Comment on above: Continuous until discontinued starting 0 09/01/2021 End: 09-01-2021 Intermittent pulse oximetry Pulse Oximetry Spot Check Respiratory Care Routine One Time for 1 Occurrences starting 09/01/2021 until 09/01/2021 [facility] Work Phone: Comment on above: One Time for 1 Occurrences starting 12/2021 until 09/01/2021 Nasal Cannula Oxygen Nasal Cannu la Oxygen Respiratory Care Routine As Needed until discontinued starting 09/01/2021 [facility] Work Phone: Comment on above: As Needed until discontinued starting Nasal Cannula Oxygen Nasal Cannu la Oxygen Respiratory Care Routine As Needed until discontinued starting 09/01/2021 [employer] Phone: Comment on above: As Needed until discontinued starting End: 03-31-2022 Nasal Cannula Oxygen Nasal Cannula Oxygen Respiratory Care Routine As Needed until discontinued starting 03/31/2022 [employer] Phone: Comment on above: As Needed until discontinued starting Nonrebreather mask oxygen Nonreb reather mask oxygen Respiratory Care Routine As Needed until discontinued starting 09/01/2021 [facility] Work Phone: Comment on above: As Needed until discontinued starting Nonrebreather mask oxygen Nonreb reather mask oxygen Respiratory Care Routine As Needed until discontinued starting 09/01/2021 [employer] Phone: Comment on above: As Needed until discontinued starting Oxygen therapy [[facility] Data Set] Initiate Oxygen Therapy Protocol Respiratory Care Routine As Needed until discontinued starting 09/01/2021 [facility] Work Phone: Comment on above: As Needed until discontinued starting Patient Education [facility] Work Phone: Patient referral [facility] Work Phone: Spirometry panel Incentive kobi metry Respiratory Care Routine Q1H PRN until discontinued starting 09/01/2021 [employer] Phone: Comment on above: Q1H PRN until discontinued starting 12/2021 TRICOMONAS VAGINALIS RNA, QUALITATIVE TMA, FEMALE Trichomonas vaginalis RNA, Qualitative, TMA, Female Lab Routine Screen for STD (sexually transmitted disease) Ordered: 03/10/2023 [facility] [employer] Comment on above: Ordered: 03/10/2023 End: 01-24-2026 XR Shoulder - left 3 Views XR SHOULDER GENERAL 3V OR MORE AP/TRUE AP/OTHER LEFT Radiology Routine Chronic left shoulder pain 1 Occurrences starting 12/25/2024 until 01/24/2026 [facility] Comment on above: 1 Occurrences starting 12/25/2024 until 01/24/2026 XR Shoulder - left 3 Views XR SH OULDER GENERAL 3V OR MORE AP/TRUE AP/OTHER LEFT Radiology Routine Chronic left shoulder pain 12/25/2024 9:43 AM EDT [facility] Immunizations Immunization Date Immunization Notes Care Provider Savita posada 03-03-2023 influenza, injectabl e, quadrivalent, contains preservative Denis Garcia MD Work Phone: [facility] 03-03-2023 influenza virus vacc ine, unspecified formulation Denis Garcia MD Work Phone: [facility] 08-10-2022 tetanus toxoid, redu jaja diphtheria toxoid, and acellular pertussis vaccine, adsorbed Ginny Older [employer] SAL[employer] SAL[employer]SULT[employer] Work Phone: [facility] 06-03-2022 Influenza, injectabl e, Madin Li Canine Kidney, preservative free, quadrivalent Ginny Older [employer] SAL[employer]ER[employer] SAL[employer] CONSULTANT Work Phone: [facility] 06-03-2022 influenza virus vacc ine, unspecified formulation Martha Gordo [employer]S SALV[employer]ER - [employer] SALES CONSULTANT Work Phone: [facility] 03-17-2022 pneumococcal polysaccharide vaccine, 23 valent Ginny Older [employer] SAL[employer]ER[employer] SAL[employer] CONSULTANT Work Phone: [facility] 12-30-2020 COVID-19, Moderna, Primary or Immunocompromised, PF, 100mcg/0.5mL Salome Alicia MD Work Phone: [facility] 12-02-2020 COVID-19, Moderna, Primary or Immunocompromised, PF, 100mcg/0.5mL Salome Alicia MD Work Phone: [facility] Work Phone: 03-20-2019 pneumococcal polysaccharide vaccine, 23 valent Olive Adena [facility] [place] 06-02-2007 hepatitis B vaccine, adult dosage Salome Alicia MD Work Phone: [facility] Work Phone: Payers Date Payer Category Payer Self-pay [id number] 2017 Unknown 2015 Unknown [id number] 2003 Medicaid [id number] 1987 Unknown [id number] 2.16.84 0.1.275531.3.579.2. 1987 Unknown [id number] 2.16.84 0.1.922295.3.579.2. 1987 Unknown [id number] 2.16.84 0.1.740186.3.579.2. 1987 Unknown [id number] 2.16.84 0.1.364191.3.579.2. 1987 Unknown [id number] 2.16.84 0.1.641962.3.579.2. 1987 Unknown [id number] 2.16. 840.1.933281.3.579.2 1987 Unknown [id number] 2.16. 840.1.168272.3.579.2 1987 Unknown [id number] 2.16. 840.1.172845.3.579.2 1987 Unknown [id number] 2.16. 840.1.205350.3.579.2 1987 Unknown [id number] 2.16. 840.1.170645.3.579.2 1987 Unknown [id number] 2.16. 840.1.562579.3.579.2 1987 Unknown [id number] 2.16. 840.1.815979.3.579.2 1987 Unknown [id number] 2.16. 840.1.460585.3.579.2 Unknown [id number] 2.16.8 40.1.360997.3.579.2.462 Unknown [id number] 2.16.8 40.1.025462.3.579.2.462 Unknown [id number] 2.16.8 40.1.788170.3.579.2.462 Unknown [id number] 2.16.8 40.1.479290.3.579.2.462 Unknown [id number] 2.16.8 40.1.653200.3.579.2.462 Unknown [id number] 2.16.8 40.1.125349.3.579.2.462 Unknown [id number] 2.16.8 40.1.086009.3.579.2.462 Social History Date Type Detail Facility Start: 06-28-2007 End: 03-06-2024 Tobacco smoking status NHIS Current every day smoker [place] Start: 05-17-2019 End: 12-08-2022 Cigarettes smoked current (pack per day) - Reported [facility] Start: 05-17-2019 End: 03-06-2024 Tobacco use and exposure Never used [place] Start: 05-17-2019 End: 12-25-2024 Alcohol intake Current non-drinker of alcohol (finding) [place] Start: 1985 Sex Assigned At Not on file [place] Start: 02-22-2021 End: 03-10-2023 Exposure to SARS-CoV-2 (event) Not sure [place] Start: 06-28-2007 History of tobacco use Cigarette Smo ker [facility] Work Phone: Start: 09-01-2021 End: 07-08-2022 Alcohol intake Current drinker of alcohol (finding) [facility] Work Phone: Start: 08-18-2021 History SDOH Alcohol Comment RARE [facility] Work Phone: Start: 03-17-2021 End: 08-03-2022 History SDOH Financial 5 [facility] Work Phone: Start: 03-17-2021 End: 08-03-2022 History SDOH Food Worry 1 [facility] Work Phone: Start: 1985 Sex Assigned At Female S [facility] Start: 10-11-2021 End: 08-23-2023 Tobacco smoking status NHIS Unknown if ever smoked [facility] Start: 09-29-2019 Cigarettes [facility] Start: 08-03-2022 History SDOH Alcohol Std Drinks 0 [facility] Start: 08-03-2022 History SDOH Social Connections Membership 2 [facility] Start: 08-03-2022 History SDOH Social Connections Living 8 [facility] Start: 08-03-2022 History SDOH Financial 4 [facility] Start: 08-03-2022 End: 12-08-2022 Social connection and isolation panel [facility] Do you belong to any clubs or organizations such as jain groups, unions, fraternal or athletic groups, or school groups? No [facility] Are you now , , , , never or living with a partner? Living with partner [facility] How often to you hav e a drink containing alcohol? Never [facility] How many standard dr inks containing alcohol do you have on a typical day? Patient does not drink [facility] How hard is it for y ou to pay for the very basics like food, housing, medical care, and heating Not very hard [facility] Do you feel stress - tense, restless, nervous, or anxious, or unable to sleep at night because your mind is troubled all the time - these days [OSQ] Very much [facility] (I/We) worried wheth er (my/our) food would run out before (I/we) got money to buy more. Never true [facility] Start: 04-16-2022 Gender identity Identifies as female gender (finding) [facility] Start: 04-16-2022 Sexual orientation Homosexual (findi ng) [facility] Do you feel stress - tense, restless, nervous, or anxious, or unable to sleep at night because your mind is troubled all the time - these days [OSQ] Rather much [facility] Start: 06-08-2024 Tobacco smoking stat us NHIS Current Light tobacco smoker [facility] Start: 10-13-2024 Sex Female (finding) [facility] NEGATED: Highlighted row - - [id number] 204 Work Phone: NEGATED: Highlighted row [facility] Medical Equipment Procedure Code Equipment Code Equipment Origin al Text Equipment Identifier Dates [id number] Start: 10-23-2019 Comment on above: Test blood sugar(s) 1 times daily. Dx: Type 2 DM - unontrolled E11.65 Insulin: No Test blood sugar(s) 1 times daily. Dx: Type 2 DM - Uncontrolled E11.65 Insulin: No Test blood sugar(s) 1 times daily. Dx: Type 2 DM - unontrolled E11.65 Insulin: No The One Touch Ultra 2 glucometer is what patient has available so ok for the one touch ultra test strip or other compatible test strip can be substituted if needed. 1 each by Does n ot apply route daily [id number] Start: 10-03-2019 1 each by In Vit ro route daily As needed. [id number] Start: 12-09-2020 1 each by In Vit ro route daily As needed. [id number] Start: 03-29-2020 1 each by Does n ot apply route daily [id number] Start: 12-09-2020 1 each by Does n ot apply route daily [id number] Start: 11-07-2021 TEST ONCE DAILY NEEDED [id number] Start: 02-06-2022 TEST ONCE DAILY NEEDED [id number] Start: 02-06-2022 1 each. [id number] Start: 03-29-2020 OneTouch Ultra t est strip [id number] Start: 02-06-2022 Test blood sugar (s) 1 times daily. Dx: Type 2 DM - unontrolled E11.65 Insulin: No [id number] Start: 03-03-2023 End: 03-15-2024 Test blood sugar (s) 1 times daily. Dx: Type 2 DM - unontrolled E11.65 Insulin: No The One Touch Ultra 2 glucometer is what patient has available so ok for the one touch ultra test strip or other compatible test strip can be substituted if needed. [id number] Start: 03-22-2023 End: 03-16-2024 Test blood sugar (s) 1 times daily. Dx: Type 2 DM - Uncontrolled E11.65 Insulin: No [id number] Start: 03-03-2023 End: 03-15-2024 Test blood sugar (s) 1 times daily. Dx: Type 2 DM - unontrolled E11.65 Insulin: No [id number] Start: 03-16-2024 End: 12-25-2024 Test blood sugar (s) 1 times daily. Dx: Type 2 DM - Uncontrolled E11.65 Insulin: No [id number] Start: 03-16-2024 End: 12-25-2024 Test blood sugar (s) 1 times daily. Dx: Type 2 DM - unontrolled E11.65 Insulin: No [id number] Start: 12-25-2024 Test blood sugar (s) 1 times daily. Dx: Type 2 DM - Uncontrolled E11.65 Insulin: No [id number] Start: 12-25-2024 Goals Date Patient Goal Desired Activity /State Comment on above: Self- Management Byron n: Obesity/Weight Loss Patient Stated Goal: >300 Barriers to success: lack of motivation Plan for overcoming my barriers: N/A. Encouraged and recommended by provider. Confidence: 610 Self-Management Plan: Will strive to achieve goal by 2019 Date goal set: 03/20/19 Patient given educational materials below via AVS. Provider Goal: Healthy diet and exercise. Patient received counseling about current lifestyle goal. Advised approximately 150 minutes of cardio, i.e treadmill, exercise in a week. Advised strive for 5 a total 5 servings of fruits and vegetables in a day. Advised a diet lower in carbohydrates and simple sugars. They need to watch consumption of bread, rice, pasta, potatoes, corn, soda, sweetened tea, lemonade, and all other sugar drinks. Patient given after visit summary which includes educational information on Exercise. Discussed use, benefit, and side effects of prescribed medications and barriers to medication compliance addressed, if applicable. All patient questions answered and patient voiced understanding. Patient was given a copy of this, and was advised to call if any questions. Formatting of this n ote might be different from the original. Self- Management Plan: Obesity/Weight Loss Patient Stated Goal: >300 Barriers to success: lack of motivation Plan for overcoming my barriers: N/A. Encouraged and recommended by provider. Confidence: [phone] Self-Management Plan: Will strive to achieve goal by 2020 Date goal set: 03/20/19 Patient given educational materials below via AVS. Provider Goal: Healthy diet and exercise. Patient received counseling about current lifestyle goal. Advised approximately 150 minutes of cardio, i.e treadmill, exercise in a week. Advised strive for 5 a total 5 servings of fruits and vegetables in a day. Advised a diet lower in carbohydrates and simple sugars. They need to watch consumption of bread, rice, pasta, potatoes, corn, soda, sweetened tea, lemonade, and all other sugar drinks. Patient given after visit summary which includes educational information on Exercise. Discussed use, benefit, and side effects of prescribed medications and barriers to medication compliance addressed, if applicable. All patient questions answered and patient voiced understanding. Patient was given a copy of this, and was advised to call if any questions. Functional Status Date Assessment Result Facility 02-21-2014 Are you deaf, or do you have serious difficulty hearing No 02/21/2014 1:19 PM EDT Elizabeth Hastings Ma No [facility] 02-21-2014 Are you blind, or do you have serious difficulty seeing, even when wearing glasses No 02/21/2014 1:19 PM EDT Elizabeth Hastings Ma No [facility] 02-21-2014 Do you have serious difficulty walking or climbing stairs Yes 02/21/2014 1:19 PM EDT Elizabeth Hastings Ma Yes [facility] 02-21-2014 Do you have difficul ty dressing or bathing Yes 02/21/2014 1:19 PM EDT Elizabeth Hastings Ma Yes [facility] 02-21-2014 Because of a physica l, mental, or emotional condition, do you have difficulty doing errands alone such as visiting a physician's office or shopping Yes 02/21/2014 1:19 PM EDT Elizabeth Hastings Ma Yes [facility] NEGATED: Highlighted row Functional performance Functional status health issues are not documented Disease [id number] 204 Work Phone: Mental Status Date Assessment Result Facility 11-13-2024 Cognitive function Voice/Name [facility] Work Phone: 08-14-2024 Cognitive function Voice/Name [facility] Work Phone: 06-14-2023 Cognitive function Voice/Name [facility] Work Phone: 03-15-2023 Cognitive function Voice/Name [facility] Work Phone: 01-27-2023 Cognitive function Level Of Cons ciousness Awake;Alert;Appropriate ;Follows Commands [facility] Work Phone: 09-14-2022 Cognitive function Voice/Name [facility] Work Phone: 07-13-2022 Cognitive function Level Of Cons ciousness Awake;Alert;Appropriate [facility] Work Phone: 07-13-2022 Cognitive function Voice/Name [facility] Work Phone: 05-04-2022 Cognitive function Voice/Name [facility] Work Phone: 04-08-2022 Cognitive function Level Of Cons ciousness Awake;Alert;Appropriate [facility] Work Phone: 01-26-2022 Cognitive function Voice/Name [facility] Work Phone: 11-10-2021 Cognitive function Voice/Name [facility] Work Phone: 07-23-2021 Cognitive function Level Of Cons ciousness Awake;Alert;Appropriate ;Follows Commands [facility] Work Phone: 02-21-2014 Because of a physical, mental, or emotional condition, do you have serious difficulty concentrating, remembering, or making decisions No 02/21/2014 1:19 PM EDT Venkata Luis, Elizabeth Mendoza [facility] NEGATED: Highlighted row Cognitive function [Interpretation] Cognitive status health issues are not documented Disease [id number]-[id number] 204 Work Phone: Clinical Notes 09-18-2011 to 12-25-2024 Christine Larios, RT(R) - 12/25/2024 9:50 AM EDTPatient InstructionsGinny Gomez, [employer]S SALV[employer]ER.[employer] SALES CONSULTANT - 12/25/2024 9:08 AM Bernarda Ramirez LPN - 11/13/2024 7:26 PM EDTPatient Instructions Note Date & Type Note Facility 12-25-2024 History of Present illness Narrative Radiology Service Progress Note PATIENT NAME: Karishma Pickard DATE OF SERVICE: December 25, 2024 TIME: 9:35 AM PATIENT IDENTITY VERIFICATION COMPLETED USING TWO (2) IDENTIFIERS: Name and Date of confirmed by patient verbally. FALL SCREENING: Has the patient had 2 falls in the last year or 1 fall with injury or currently using an Ambulatory Assistive Device (Walker, Cane, Wheelchair, Crutches, etc.)? Yes, Patient High Risk for Falls What interventions were put in place to prevent falls during this visit? Increased Observations by Caregivers PATIENT GENDER DATA: Assigned female at . status: : No status: NO. PATIENT RELEVANT IMPLANT DATA REVIEWED: Not Applicable PATIENT PRESENTS WITH AN IMPLANTABLE OR ATTACHED RENAL NURSE: No RADIOLOGY DEPARTMENT: General X-ray: Exam(s) Completed: Upper Extremity X-Ray(s): Shoulder, AP / TRUE AP / AXILLARY left PERIPHERAL IV DATA: Not applicable SIGNED BY: KAITY Bolivar) December 25, 2024 9:35 AM documented in this encounter [facility] 12-25-2024 Note HNO ID: [id number] Author: CHRISTINE LARIOS RT(R) Service: ? Author Type: Technologist Type: Progress Notes Filed: 12/25/2024 09:44 Note Text: Radiology Service Progress Note PATIENT NAME: Karishma Pickard DATE OF SERVICE: December 25, 2024 TIME: 9:35 AM PATIENT IDENTITY VERIFICATION COMPLETED USING TWO (2) IDENTIFIERS: Name and Date of confirmed by patient verbally. FALL SCREENING: Has the patient had 2 falls in the last year or 1 fall with injury or currently using an Ambulatory Assistive Device (Walker, Cane, Wheelchair, Crutches, etc.)? Yes, Patient High Risk for Falls What interventions were put in place to prevent falls during this visit? Increased Observations by Caregivers PATIENT GENDER DATA: Assigned female at . status: : No status: NO. PATIENT RELEVANT IMPLANT DATA REVIEWED: Not Applicable PATIENT PRESENTS WITH AN IMPLANTABLE OR ATTACHED RENAL NURSE: No RADIOLOGY DEPARTMENT: General X-ray: Exam(s) Completed: Upper Extremity X-Ray(s): Shoulder, AP / TRUE AP / AXILLARY left PERIPHERAL IV DATA: Not applicable SIGNED BY: Christine Larios, RT(R) December 25, 2024 9:35 AM [facility] 12-25-2024 Instructions Ginny Gomez APRN.CNP - 12/25/2024 9:16 AM EDT - Get your non-fasting blood work and a full shoulder x-ray today (downstairs) to check for fractures or dislocation. Based on the x-ray results, we may recommend physical therapy to help your shoulder pain. - Follow up in 6 months documented in this encounter [facility] 12-25-2024 Note HNO ID: [id number] Author: GINNY GOMEZ APRN.CNP Service: ? Author Type: Nurse Practitioner Type: Progress Notes Filed: 12/25/2024 09:16 Note Text: CC: Patient presents with: Physical Arm Pain: Left x 4 months- post fall HPI Recording using [employer] software for draft documentation of the visit was discussed with the patient/authorized product sales representative; all questions welcomed and answered. Patient/authorized product sales representative agreed to proceed Karishma Pickard is a 39-year-old female with a history of DM, HTN, anxiety, depression, and HILDA, presenting for follow-up and evaluation of left arm pain. Left Arm Pain: - Pain in the left upper arm, x4 months. - Onset after a fall on a high carpet floor in her apartment; leg gave out, causing her to fall. - Pain described as a pulling sensation, exacerbated by lifting the arm or reaching for objects. - Difficulty lifting the arm above the shoulder and performing tasks like washing hair. - Minimal swelling noted initially; no bruising observed. - Taking muscle relaxers and hydrocodone prescribed by pain management, with no relief. - Suspects possible muscle tear due to prolonged pain. Diabetes Mellitus: - Managed with Farxiga and glipizide; no longer taking Ozempic. - Monitors blood glucose levels twice daily (morning and before bed); readings range from 115-120 mg/dL. - Occasional hypoglycemic episodes (<70 mg/dL) approximately once every two months. - Insurance no longer covers current glucose meter brand; needs a new brand. - No issues with foot pain, numbness, tingling, or sores; regularly checks feet. - Eye exam scheduled. Hypertension: - Previously on metoprolol, which improved blood pressure and heart rate; has not filled prescription since August. - Home blood pressure readings typically 120-118/80 mmHg; heart rate usually in the 80s. - No side effects reported from metoprolol. Anxiety and Depression: - Managed by psychiatry; taking Abilify and recently added hydroxyzine 50 mg TID PRN. - Experienced really bad winter seasonal depression with medication non-adherence; currently stabilized. - Psychiatrist recommended ketamine treatment or shock therapy, but Karishma prefers to continue medication. Obstructive Sleep Apnea: - Prescribed CPAP but does not use it due to feeling suffocated. Chronic Pain: - Undergoing pain management for back and neck pain. - Treatments include ablations in the lower back and a recent epidural shot in the neck; nerve block scheduled for January. - Reports significant relief from lower back ablations; neck treatment is new. Lifestyle: - Recently gained 10 lbs over the past year; current weight is 319 lbs. - Smokes approximately half a pack of cigarettes per day; denies alcohol, drug use, e-cigarette, or vaping. - Upcoming gynecological appointment scheduled. Review of Systems Constitutional: Negative for chills, diaphoresis, fatigue, fever and unexpected weight change. Respiratory: Negative for cough, shortness of breath and wheezing. Cardiovascular: Negative for chest pain, palpitations and leg swelling. Neurological: Negative for dizziness, syncope, weakness, light-headedness, numbness and headaches. PAST MEDICAL HISTORY Diagnosis Date Cholelithiases Chronic bilateral low back pain without sciatica 08/10/2022 Chronic pain syndrome Class 3 severe obesity due to excess calories without serious comorbidity with body mass index (BMI) of 50.0 to 59.9 in adult ([facility]) 03/24/2021 Controlled type 2 diabetes mellitus without complication, without long-term current use of insulin ([facility]) 08/10/2022 DDD (degenerative disc disease), lumbar 08/10/2022 Depression 01/27/2017 Fibromyalgia 01/27/2017 WATSON (generalized anxiety disorder) 08/10/2022 GERD (gastroesophageal reflux disease) Leukocytosis 12/08/2022 Morbid obesity (HCC) Obstructive sleep apnea Not on CPAP HILDA (obstructive sleep apnea) 09/18/2011 PCOS (polycystic ovarian syndrome) Primary hypertension 03/06/2024 PTSD (post-traumatic stress disorder) 08/10/2022 Tobacco use disorder 08/10/2022 Ulnar neuropathy Ulnar neuropathy at elbow of left upper extremity 05/17/2017 Added automatically from request for surgery [id number] PAST SURGICAL HISTORY Procedure Laterality Date APPENDECTOMY 08/2010 CHOLECYSTECTOMY HX 07/21/[address] Brooks. [facility], DIAG AND/OR THERAPEUTIC NEUROPLASTY AND/TRANSPOSITION ULNAR NERVE ELBOW Left 06/02/2017 Left Ulnar nerve decompression NRV DESTR RFA, CHEM OTHER Left 06/2022 NRV DESTR RFA, CHEM OTHER Bilateral w/ Dr. Guerrero TONSILLECTOMY HX ALLERGIES Duloxetine, Elavil [Amitriptyline Hcl], and Gabapentin MEDICATIONS pantoprazole DR (PROTONIX) 40 mg tablet Take 1 tablet by mouth daily before breakfast. rosuvastatin (CRESTOR) 20 mg tablet Take 1 tablet by mouth once daily. ergocalciferol 50,000 unit capsule (VITAMIN D2, DRISDOL) Take 1 capsule by mouth o (more content not included)... [facility] 12-25-2024 History of Present illness Narrative CC: Patient presents with: Physical Arm Pain: Left x 4 months- post fall HPI Recording using [employer] software for draft documentation of the visit was discussed with the patient/authorized product sales representative; all questions welcomed and answered. Patient/authorized product sales representative agreed to proceed Karishma Pickard is a 39-year-old female with a history of DM, HTN, anxiety, depression, and HILDA, presenting for follow-up and evaluation of left arm pain. Left Arm Pain: - Pain in the left upper arm, x4 months. - Onset after a fall on a high carpet floor in her apartment; leg gave out, causing her to fall. - Pain described as a pulling sensation, exacerbated by lifting the arm or reaching for objects. - Difficulty lifting the arm above the shoulder and performing tasks like washing hair. - Minimal swelling noted initially; no bruising observed. - Taking muscle relaxers and hydrocodone prescribed by pain management, with no relief. - Suspects possible muscle tear due to prolonged pain. Diabetes Mellitus: - Managed with Farxiga and glipizide; no longer taking Ozempic. - Monitors blood glucose levels twice daily (morning and before bed); readings range from 115-120 mg/dL. - Occasional hypoglycemic episodes (<70 mg/dL) approximately once every two months. - Insurance no longer covers current glucose meter brand; needs a new brand. - No issues with foot pain, numbness, tingling, or sores; regularly checks feet. - Eye exam scheduled. Hypertension: - Previously on metoprolol, which improved blood pressure and heart rate; has not filled prescription since August. - Home blood pressure readings typically 120-118/80 mmHg; heart rate usually in the 80s. - No side effects reported from metoprolol. Anxiety and Depression: - Managed by psychiatry; taking Abilify and recently added hydroxyzine 50 mg TID PRN. - Experienced really bad winter seasonal depression with medication non-adherence; currently stabilized. - Psychiatrist recommended ketamine treatment or shock therapy, but Karishma prefers to continue medication. Obstructive Sleep Apnea: - Prescribed CPAP but does not use it due to feeling suffocated. Chronic Pain: - Undergoing pain management for back and neck pain. - Treatments include ablations in the lower back and a recent epidural shot in the neck; nerve block scheduled for January. - Reports significant relief from lower back ablations; neck treatment is new. Lifestyle: - Recently gained 10 lbs over the past year; current weight is 319 lbs. - Smokes approximately half a pack of cigarettes per day; denies alcohol, drug use, e-cigarette, or vaping. - Upcoming gynecological appointment scheduled. Review of Systems Constitutional: Negative for chills, diaphoresis, fatigue, fever and unexpected weight change. Respiratory: Negative for cough, shortness of breath and wheezing. Cardiovascular: Negative for chest pain, palpitations and leg swelling. Neurological: Negative for dizziness, syncope, weakness, light-headedness, numbness and headaches. PAST MEDICAL HISTORY Diagnosis Date Cholelithiases Chronic bilateral low back pain without sciatica 08/10/2022 Chronic pain syndrome Class 3 severe obesity due to excess calories without serious comorbidity with body mass index (BMI) of 50.0 to 59.9 in adult ([facility]) 03/24/2021 Controlled type 2 diabetes mellitus without complication, without long-term current use of insulin ([facility]) 08/10/2022 DDD (degenerative disc disease), lumbar 08/10/2022 Depression 01/27/2017 Fibromyalgia 01/27/2017 WATSON (generalized anxiety disorder) 08/10/2022 GERD (gastroesophageal reflux disease) Leukocytosis 12/08/2022 Morbid obesity (HCC) Obstructive sleep apnea Not on CPAP HILDA (obstructive sleep apnea) 09/18/2011 PCOS (polycystic ovarian syndrome) Primary hypertension 03/06/2024 PTSD (post-traumatic stress disorder) 08/10/2022 Tobacco use disorder 08/10/2022 Ulnar 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 Brooks[address] [facility] D&C, DIAG AND/OR THERAPEUTIC NEUROPLASTY &/TRANSPOSITION ULNAR NERVE ELBOW Left 06/02/2017 Left Ulnar nerve decompression NRV DESTR RFA, CHEM OTHER Left 06/2022 NRV DESTR RFA, CHEM OTHER Bilateral w/ Dr. Guerrero TONSILLECTOMY HX ALLERGIES Duloxetine, Elavil [Amitriptyline Hcl], and Gabapentin MEDICATIONS pantoprazole DR (PROTONIX) 40 mg tablet Take 1 tablet by mouth daily before breakfast. rosuvastatin (CRESTOR) 20 mg tablet Take 1 tablet by mouth once daily. ergocalciferol 50,000 unit capsule (VITAMIN D2, DRISDOL) Take 1 capsule by mouth one time a week. ARIPiprazole (ABILIFY) 10 mg tablet Take 2 tablets by mouth every afternoon. HYDROcodone-acetaminophen (NORCO) 5-325 mg per tablet Take 1 tablet by mouth two times a day as needed. tiZANidine (ZANAFLEX) 4 mg tablet Take 1 tablet by mouth three times a day as needed. cetirizine (ZYRTEC) 10 mg tablet Take 1 tablet by mouth once daily. albuterol (PROVENTIL) 2.5 mg /3 mL (0.083 %) nebulizer solution Use 2.5 mg via nebulizer as needed. albuterol HFA (PROVENTIL HFA, VENTOLIN HFA) 90 mcg/actuation inhaler Inhale 2 Puffs as instructed every 4 hours as needed. ondansetron (ZOFRAN) 4 mg tablet Take 4 mg by mouth every 8 hours as needed. Blood-Glucose Meter Test blood sugar(s) 1 times daily. Dx: Type 2 DM - unontrolled E11.65 Insulin: No blood sugar diagnostic (BLOOD GLUCOSE TEST) test strip Test blood sugar(s) 1 times daily. Dx: Type 2 DM - unontrolled E11.65 Insulin: No Lancets Test blood sugar(s) 1 times daily. Dx: Type 2 DM - Uncontrolled E11.65 Insulin: No dapagliflozin propanediol (FARXIGA) 10 mg tablet Take 1 tablet by mouth daily with breakfast. glipiZIDE (GLUCOTROL XL) 10mg 24 hr tablet Take 1 tablet by mouth daily with breakfast. lisinopril (ZESTRIL) 10 mg tablet Take 1 tablet by mouth once daily. metoprolol succinate ER (TOPROL XL) 25 mg 24 hr tablet Take 1 tablet by mouth once daily. hydrOXYzine HCl (ATARAX) 50 mg tablet Take 1 tablet by mouth three times a day as needed. levonorgestrel (MIRENA) 20 mcg/24 hours (8 yrs) 52 mg IUD 1 Each by INTRAUTERINE route one time only for 1 dose. FAMILY HISTORY Problem Relation Age of Onset Multiple Sclerosis Mother Stroke Father Heart Attack Father Kidney Disease Brother Multiple Sclerosis Maternal Grandmother Heart Paternal Grandmother Hyperlipidemia Paternal Grandmother Arthritis Paternal Grandfather Cancer Paternal Grandfather skin Emphysema Paternal Grandfather Prostate Cancer Paternal Grandfather other (ALS) Paternal Grandfather other (multiple sclerosis) Maternal Aunt Social History Tobacco Use Smoking status: Every Day Current packs/day: 0.50 Average packs/day: 0.5 packs/day for 17.5 years (8.7 ttl pk-yrs) Types: Cigarettes Start date: 06/28/2007 Smokeless tobacco: Never Vaping Use Vaping status: Never Used Substance Use Topics Alcohol use: No Drug use: Never BP 132/84 Pulse 108 Resp 16 Ht 163.5 cm (5' 4.37) Wt (!) 144.8 kg (319 lb 3.6 oz) LMP 11/26/2024 (Approximate) SpO2 96% BMI 54.17 kg/m Physical Exam Vitals reviewed. Constitutional: Appearance: Normal appearance. Neck: Thyroid: No thyroid mass, thyromegaly or thyroid tenderness. Cardiovascular: Rate and Rhythm: Regular rhythm. Tachycardia present. Pulses: Dorsalis pedis pulses are 2+ on the right side and 2+ on the left side. Heart sounds: Normal heart sounds. No murmur heard. Pulmonary: Effort: Pulmonary effort is normal. Breath sounds: Normal breath sounds. No wheezing, rhonchi or rales. Musculoskeletal: Left shoulder: Tenderness (biceps) present. No swelling, deformity, bony tenderness or crepitus. Normal strength. Normal pulse. Right foot: Normal range of motion. No deformity. Left foot: Normal range of motion. No deformity. Comments: Left shoulder- full ROM but painful. Positive Phan and Neer Feet: Right foot: Protective Sensation: 6 sites tested. 6 sites sensed. Skin integrity: Skin integrity normal. Toenail Condition: Right toenails are normal. Left foot: Protective Sensation: 6 sites tested. 6 sites sensed. Skin integrity: Skin integrity normal. Toenail Condition: Left toenails are normal. Lymphadenopathy: Cervical: No cervical adenopathy. Skin: General: Skin is warm and dry. Neurological: Mental Status: She is alert. Psychiatric: Mood and Affect: Mood and affect normal. Health maintenance reviewed with patient: Cervical Cancer Screening Never done Urine Albumin:Creatinine Ratio due on 12/09/2023 LDL Cholesterol due on 12/09/2023 HbA1C due on 01/03/2024 Dilated Retinal Exam due on 04/07/2024 Covid-19 Vaccine( season) due on 03/06/2025 Pneumococcal Vaccine(2 of 2 - PCV) due on 03/06/2025 Influenza Vaccine(Season Ended) due on 02/26/2025 Diabetic Foot Exam due on 12/25/2025 Annual PCP Team Chronic Disease Visit due on 12/25/2025 DTaP,Tdap,Td Vaccine(2 - Td or Tdap) due on 08/10/2032 Hepatitis C Screening Completed HIV Screening Completed DATA REVIEWED: Most recent labs Assessment/Plan 1. Chronic left shoulder pain (M25.512) - Persistent pain for 4 months following a fall; difficulty lifting arm above shoulder level with a pulling sensation. - Ordered X-ray of the shoulder to rule out dislocation or fractures. - Consider physical therapy based on X-ray results. 2. Controlled type 2 diabetes mellitus without complication, without long-term current use of insulin (HCC) (E11.9) - Blood sugars monitored twice daily, ranging from 115-120 mg/dL in the morning. - Managed with Farxiga and glipizide; discontinued Ozempic. - Occasional hypoglycemic episodes, approximately once every two months. - Ordered non-fasting blood work. - Provided prescription for a new glucose meter covered by insurance. - No issues with feet; monofilament test performed, sensation intact. - Follow-up in 6 months. 3. Primary hypertension (I10) - Blood pressure readings at home reportedly normal, around 120/80 mmHg. - Refill for metoprolol 90-day supply; previously effective with no side effects. 4. HILDA (obstructive sleep apnea) (G47.33) - Non-compliant with CPAP use due to discomfort. - Discussed importance of CPAP adherence. 5. Chronic bilateral low back pain without sciatica (M54.50) - Managed by pain management with ablations; reports significant relief. 6. Cervicalgia (M54.2) - Undergoing treatment with pain management; recent epidural injection, nerve block scheduled in January. 7. Class 3 severe obesity due to excess calories without serious comorbidity with body mass index (BMI) of 50.0 to 59.9 in adult (HCC) (E66.813) - Current weight 319 lbs, up 10 lbs from last year. - Discussed weight management strategies. 8. Gastroesophageal reflux disease, unspecified whether esophagitis present (K21.9) - Well-controlled with pantoprazole; no dysphagia reported. 9. WATSON (generalized anxiety disorder) (F41.1) 10. PTSD (post-traumatic stress disorder) (F43.10) 11. Recurrent major depressive disorder, in remission (F33.40) - Managed by psychiatry; current medications include Abilify and hydroxyzine 50 mg TID prn. - Declined alternative therapies recommended by psychiatrist such as ketamine or ECT. 12. Tobacco use disorder (F17.200) - Continues to smoke half a pack per day. - Discussed smoking cessation. 13. Vitamin D deficiency (E55.9) - taking Vitamin D, recheck Prescription instructions reviewed with patient as applicable. Potential red flag symptoms discussed with the patient. Reviewed appropriate action plan to take if red flag symptoms occur. Patient agreeable to treatment plan. Ginny Gomez APRN.[employer] SAL[employer] CONSULTANT documented in this encounter [facility] 11-13-2024 Note HNO ID: [id number] Author: BERNARDA SEGOVIA LPN Service: ? Author Type: LICENSED NURSE Type: Progress Notes Filed: 11/13/2024 19:27 Note Text: POPULATION HEALTH NAVIGATION OUTREACH Action/FYI Patient cancelled 1 month follow-up, did not reschedule. Reason for Outreach Care Gap/HCC or Scheduling Wellness Visits Care Gaps due: Follow-up Appointment Patient Contacted: Unable or unnecessary to reach patient: Left message Navigation Signature: Bernarda Segovia LPN November 13, 2024 7:26 PM [facility] 11-13-2024 History of Present illness Narrative POPULATION HEALTH NAVIGATION OUTREACH Action/FYI Patient cancelled 1 month follow-up, did not reschedule. Reason for Outreach Care Gap/HCC or Scheduling Wellness Visits Care Gaps due: Follow-up Appointment Patient Contacted: Unable or unnecessary to reach patient: Left message Navigation Signature: Bernarda Segovia LPN November 13, 2024 7:26 PM documented in this encounter [facility] 11-13-2024 Procedure note [facility] 10-10-2024 Radiology Diagnostic study note [facility] Imaging Services [address] [place] [id number] Cerv Spine 4 or 5 Views MR#: [id number] Acct: [id number] Name: KARISHMA PICKARD Rep #: [id number] : 1985 F 39 From: Nereida Potts MD PCP: Dr. Denis Garcia MD Status: R EG CLI Study:Cerv Spine 4 or 5 Views Date of Exam: 10/09/24 Exam# [id number] Ordering Dr: Irma Yu PROCEDURE: CERV SPINE 4 OR 5 VIEWS 10/09/2024 REASON FOR EXAM: CERVICAL SPINE PAIN TECHNIQUE: AP, lateral, bilateral oblique, and open-mouth odontoid views of the cervical spine were obtained. COMPARISON: None. FINDINGS: Fracture/dislocation: None visible. Vertebral body heights: Preserved. Alignment: Straightening of the normal cervical lordosis which may be positionalor related to pain/muscular spasm Disc spaces: Relatively preserved. Facets: Grossly unremarkable. Soft tissues: Unremarkable. Foreign bodies: None visible. Bone mineralization: Grossly unremarkable. Other: None. RAD/Cerv Spine 4 or 5 Views IMPRESSION: 1. No visible acute displaced fracture. Straightening of the normal cervical lordosis which may be positional or related to pain/muscular spasm. If concern persists, consider CT/MRI. 2. No significant radiographically evident cervical spondylosis. Reading Location: [facility] CC: Irma Yu; Dr. Denis Garcia MD ~ Pbx Installer: Signed [facility] 03-15-2024 Telephone encounter Note Prescription Refill Information The patient has been identified by name and date of : Yes Caregiver verified no other encounters exist for this prescription request: Yes Caregiver confirmed with patient/requestor that no other refills are due, in the near future, with this provider at this time: Yes The last office visit in the department: 03-06-24 Does the patient have a future office visit with this provider/department: Yes Requested Prescriptions Pending Prescriptions Disp Refills blood sugar diagnostic (BLOOD GLUCOSE TEST) test strip 50 Strip 11 Sig: Test blood sugar(s) 1 times daily. Dx: Type 2 DM - unontrolled E11.65 Insulin: No dapagliflozin propanediol (FARXIGA) 10 mg tablet 90 tablet 1 Sig: Take 1 tablet by mouth daily with breakfast. glipiZIDE XL (GLUCOTROL XL) 10 mg 24 hr tablet 90 tablet 1 Sig: Take 1 tablet by mouth daily with breakfast. Lancets 100 Each 3 Sig: Test blood sugar(s) 1 times daily. Dx: Type 2 DM - Uncontrolled E11.65 Insulin: No lisinopril (ZESTRIL) 10 mg tablet 90 tablet 3 Sig: Take 1 tablet by mouth once daily. pantoprazole DR (PROTONIX) 40 mg tablet 90 tablet 3 Sig: Take 1 tablet by mouth daily before breakfast. rosuvastatin (CRESTOR) 20 mg tablet 90 tablet 3 Sig: Take 1 tablet by mouth once daily. Pari Enrique March 15, 2024 10:00 AM [facility] 03-15-2024 Miscellaneous Notes Prescription Refill Information The patient has been identified by name and date of : Yes Caregiver verified no other encounters exist for this prescription request: Yes Caregiver confirmed with patient/requestor that no other refills are due, in the near future, with this provider at this time: Yes The last office visit in the department: 03-06-24 Does the patient have a future office visit with this provider/department: Yes Requested Prescriptions Pending Prescriptions Disp Refills blood sugar diagnostic (BLOOD GLUCOSE TEST) test strip 50 Strip 11 Sig: Test blood sugar(s) 1 times daily. Dx: Type 2 DM - unontrolled E11.65 Insulin: No dapagliflozin propanediol (FARXIGA) 10 mg tablet 90 tablet 1 Sig: Take 1 tablet by mouth daily with breakfast. glipiZIDE XL (GLUCOTROL XL) 10 mg 24 hr tablet 90 tablet 1 Sig: Take 1 tablet by mouth daily with breakfast. Lancets 100 Each 3 Sig: Test blood sugar(s) 1 times daily. Dx: Type 2 DM - Uncontrolled E11.65 Insulin: No lisinopril (ZESTRIL) 10 mg tablet 90 tablet 3 Sig: Take 1 tablet by mouth once daily. pantoprazole DR (PROTONIX) 40 mg tablet 90 tablet 3 Sig: Take 1 tablet by mouth daily before breakfast. rosuvastatin (CRESTOR) 20 mg tablet 90 tablet 3 Sig: Take 1 tablet by mouth once daily. Pari Enrique March 15, 2024 10:00 AM documented in this encounter [facility] 03-06-2024 History of Present illness Narrative CC: Patient presents with: Rx Refills: C/o BP problems HPI Karishma Pickard is a 39 year old female who presents today for above. Her visit today is for follow-up. Patient was last seen for this approximately 6 months ago. HTN- patient presented to [facility] ER on 02/26 for elevated home BP of 199/112. She admitted to feeling extremely anxious regarding BP and under a lot of stress. CBC, BMP, EKG were unremarkable. BP in ER was initially 17/5/113, down to 148/106 at discharge without any intervention. Medication changes: No Taking all medications as prescribed: Yes except she was out of Lisinopril for about 6 weeks, restarted around 02/23. Side effects: No Home BP's: Yes 150's/100's Denies: headache, chest pain, palpitations, dyspnea, and peripheral edema. Last 4 Encounter BP Readings: Date: BP: 09/03/2023 117/79 06/04/2023 151/88 06/02/2023 118/78 04/12/2023 128/90 Last 3 Encounter Wt Readings: Date: Wt: 09/03/2023 154.1 kg (339 lb 12.8 oz) 06/04/2023 150.6 kg (332 lb) 06/02/2023 150.6 kg (332 lb) Diabetes: Home blood sugar readings: fasting around 120-140 Hypoglycemia: No She is compliant with medication(s) except she never started Ozempic due to confusion on how to inject the medication. She is tolerating med(s) without any side effects. Increased thirst: No Urinary frequency: No Nocturia: No Fatigue: No Unintentional weight loss: No Blurred vision: No Numbness, tingling or pain in extremities: No Ulcers or sores on feet: No Last Ophthalmology exam: within the past 12 months Patient's last HgA1C : Hemoglobin A1C (%) Date Value 07/05/2023 7.8 12/08/2022 7.4 12/26/2013 6.1 Hemoglobin A1C (POCT) (%) Date Value 03/03/2023 9.6 HILDA: she is intolerant to CPAP and has not been wearing. She is scheduled for follow-up with sleep medicine next month. Depression: medications managed by psychiatry. She is currently only treated with Abilify. She has a lot of stress and is very anxious all the time but feels that depression is stable. Review of Systems See HPI PAST MEDICAL HISTORY No date: Cholelithiases 08/10/2022: Chronic bilateral low back pain without sciatica No date: Chronic pain syndrome 03/24/2021: Class 3 severe obesity due to excess calories without serious comorbidity with body mass index (BMI) of 50.0 to 59.9 in adult (HCC) 08/10/2022: Controlled type 2 diabetes mellitus without complication, without long-term current use of insulin (HCC) 08/10/2022: DDD (degenerative disc disease), lumbar 01/27/2017: Depression 01/27/2017: Fibromyalgia 08/10/2022: WATSON (generalized anxiety disorder) No date: GERD (gastroesophageal reflux disease) 12/08/2022: Leukocytosis No date: Morbid obesity (HCC) No date: Obstructive sleep apnea Comment: Not on CPAP 09/18/2011: HILDA (obstructive sleep apnea) No date: PCOS (polycystic ovarian syndrome) 08/10/2022: PTSD (post-traumatic stress disorder) 08/10/2022: Tobacco use disorder No date: Ulnar neuropathy 05/17/2017: Ulnar neuropathy at elbow of left upper extremity Comment: Added automatically from request for surgery [id number] PAST SURGICAL HISTORY 08/2010: APPENDECTOMY 07/21/2017: CHOLECYSTECTOMY HX Comment: Laparoscopic. Dr. Brooks. [facility] No date: D&C, DIAG AND/OR THERAPEUTIC 06/02/2017: NEUROPLASTY &/TRANSPOSITION ULNAR NERVE ELBOW; Left Comment: Left Ulnar nerve decompression 06/2022: NRV DESTR RFA, CHEM OTHER; Left No date: TONSILLECTOMY HX ALLERGIES Duloxetine, Elavil [Amitriptyline Hcl], and Gabapentin MEDICATIONS ARIPiprazole (ABILIFY) 10 mg tablet Take 2 tablets by mouth every afternoon. HYDROcodone-acetaminophen (NORCO) 5-325 mg per tablet Take 1 tablet by mouth two times a day as needed. tiZANidine (ZANAFLEX) 4 mg tablet Take 1 tablet by mouth three times a day as needed. carBAMazepine XR (TEGRETOL XR) 200 mg 12 hr tablet Take 1 tablet by mouth every 12 hours. semaglutide (OZEMPIC) 0.25 mg or 0.5 mg (2 mg/3 mL) pen Inject 0.5 mg subcutaneously one time a week. ergocalciferol 50,000 unit capsule (VITAMIN D2, DRISDOL) Take 1 capsule by mouth one time a week. traZODone (DESYREL) 150 mg tablet Take 150 mg by mouth daily at bedtime. glipiZIDE (GLUCOTROL XL) 10mg 24 hr tablet Take 1 tablet by mouth daily with breakfast. blood sugar diagnostic (Stilnest ULTRA TEST) test strip Test blood sugar(s) [...] 1 tablet by mouth daily with breakfast. lisinopril (ZESTRIL) 10 mg tablet Take 1 tablet by mouth once daily. pantoprazole DR (PROTONIX) 40 mg tablet Take 1 tablet by mouth daily before breakfast. cetirizine (ZYRTEC) 10 mg tablet Take 1 tablet by mouth once daily. rosuvastatin (CRESTOR) 20 [...] as instructed every 4 hours as needed. busPIRone (BUSPAR) 15 mg tablet Take [...] History Tobacco Use Smoking status: Every Day Current packs/day: 0.50 Average packs/day: 0.5 packs/day for 16.7 years (8.3 ttl pk-yrs) Types: Cigarettes Start date: 06/28/2007 Smokeless tobacco: Never Vaping Use Vaping status: Never Used Substance Use Topics Alcohol use: No Drug use: Never BP 148/98 Pulse (!) 132 Resp 20 Wt (!) 140.5 kg (309 lb 11.9 oz) LMP 03/08/2023 (Approximate) SpO2 98% BMI 49.78 kg/m Physical Exam Vitals reviewed. Constitutional: Appearance: Normal appearance. Cardiovascular: Rate and Rhythm: Regular rhythm. Tachycardia present. Pulses: Normal pulses. Heart sounds: Normal heart sounds. No murmur heard. Pulmonary: Effort: Pulmonary effort is normal. Breath sounds: Normal breath sounds. No wheezing, rhonchi or rales. Musculoskeletal: Right lower leg: No edema. Left lower leg: No edema. Skin: General: Skin is warm and dry. Neurological: Mental Status: She is alert. Psychiatric: Attention and Perception: Attention normal. Mood and Affect: Mood and affect normal. Speech: Speech normal. Behavior: Behavior normal. Behavior is cooperative. Health maintenance reviewed with patient: Cervical Cancer Screening Never done Diabetic Foot Exam due on 08/10/2023 Urine Albumin:Creatinine Ratio due on 12/09/2023 LDL Cholesterol due on 12/09/2023 HbA1C due on 01/03/2024 Influenza Vaccine(1) due on 12/25/2024 Covid-19 Vaccine(3 - 2022-24 season) due on 03/06/2025 Pneumococcal Vaccine(2 of 2 - PCV) due on 03/06/2025 Dilated Retinal Exam due on 04/07/2024 Annual PCP Team Chronic Disease Visit due on 03/06/2025 DTaP,Tdap,Td Vaccine(2 - Td or Tdap) due on 08/10/2032 Hepatitis C Screening Completed HIV Screening Completed HPV Vaccine Aged Out DATA REVIEWED: Most recent labs ASSESSMENT/PLAN: 1. Primary hypertension - ICD9: 401.9, ICD10: I10 (primary diagnosis) - Worsening control - Factors affecting control: anxiety, medication adherence, obesity, untreated sleep apnea - Continue current medications - Start metoprolol succinate 25 mg daily - Recommend home blood pressure monitoring, to bring results to next visit - Encouraged sodium restriction, DASH or Mediterranean diet - Smoking cessation encouraged; discussed risks to health and quitting strategies. Patient is not ready to quit - Reviewed risks of hypertension and principles of treatment - Follow up in 4 weeks for hypertension visit 2. Tachycardia - ICD9: 785.0, ICD10: R00.0 Chronic. Asymptomatic. Patient relates to stress/anxiety. She had extensive cardiac work-up last year with stress test, echocardiogram, EKG's and event monitor that were all unremarkable. Start Metoprolol as above 3. Controlled type 2 diabetes mellitus without complication, without long-term current use of insulin ([facility]) - ICD9: 250.00, ICD10: E11.9 - Control undetermined, due for labs - Continue current medications. Consider starting Ozempic for not only diabetes control but weight loss as well. Offered appointment with nurse for injection teaching but she declined at this time - ALBUMIN/CREATININE RATIO, URINE - LIPID PANEL BASIC - HEMOGLOBIN A1C - COMPREHENSIVE METABOLIC PANEL - COMPLETE BLOOD COUNT AND DIFFERENTIAL 4. Class 3 severe obesity due to excess calories without serious comorbidity with body mass index (BMI) of 50.0 to 59.9 in adult ([facility]) - ICD9: 278.01, V85.43, ICD10: E66.01, Z68.43 Weight decreasing. Patient is not eating much due to stress. Discussed healthy weight loss strategies. Consider Ozempic. Can discuss again at follow-up in one month 5. Vitamin D deficiency - ICD9: 268.9, ICD10: E55.9 Recheck - VITAMIN D 25 HYDROXY - ERGOCALCIFEROL (VITAMIN D2) 1,250 MCG (50,000 UNIT) CAPSULE 6. HILDA (obstructive sleep apnea) - ICD9: 327.23, ICD10: G47.33 Intolerant to CPAP. Follow-up with sleep medicine as scheduled 7. WATSON (generalized anxiety disorder) - ICD9: 300.02, ICD10: F41.1 Medications and follow-up per psychiatry 8. PTSD (post-traumatic stress disorder) - ICD9: 309.81, ICD10: F43.10 Medications and follow-up per psychiatry 9. Depression, unspecified depression type - ICD9: 311, ICD10: F32.A Medications and follow-up per psychiatry 10. Gastroesophageal reflux disease, unspecified whether esophagitis present - ICD9: 530.81, ICD10: K21.9 Stable Prescription instructions reviewed with patient as applicable. Potential red flag symptoms discussed with the patient. Reviewed appropriate action plan to take if red flag symptoms occur. Patient agreeable to treatment plan. Ginny Gomez APRN.UNIQUE documented in this encounter [facility] 03-06-2024 Note HNO ID: [id number] Author: GINNY GOEMZ APRN.CNP Service: ? Author Type: Nurse Practitioner Type: Progress Notes Filed: 03/06/2024 09:37 Note Text: CC: Patient presents with: Rx Refills: C/o BP problems HPI Karishma Pickard is a 39 year old female who presents today for above. Her visit today is for follow-up. Patient was last seen for this approximately 6 months ago. HTN- patient presented to [facility] ER on 02/26 for elevated home BP of 199/112. She admitted to feeling extremely anxious regarding BP and under a lot of stress. CBC, BMP, EKG were unremarkable. BP in ER was initially 17/5/113, down to 148/106 at discharge without any intervention. Medication changes: No Taking all medications as prescribed: Yes except she was out of Lisinopril for about 6 weeks, restarted around 02/23. Side effects: No Home BP's: Yes 150's/100's Denies: headache, chest pain, palpitations, dyspnea, and peripheral edema. Last 4 Encounter BP Readings: Date: BP: 09/03/2023 117/79 06/04/2023 151/88 06/02/2023 118/78 04/12/2023 128/90 Last 3 Encounter Wt Readings: Date: Wt: 09/03/2023 154.1 kg (339 lb 12.8 oz) 06/04/2023 150.6 kg (332 lb) 06/02/2023 150.6 kg (332 lb) Diabetes: Home blood sugar readings: fasting around 120-140 Hypoglycemia: No She is compliant with medication(s) except she never started Ozempic due to confusion on how to inject the medication. She is tolerating med(s) without any side effects. Increased thirst: No Urinary frequency: No Nocturia: No Fatigue: No Unintentional weight loss: No Blurred vision: No Numbness, tingling or pain in extremities: No Ulcers or sores on feet: No Last Ophthalmology exam: within the past 12 months Patient's last HgA1C : Hemoglobin A1C (%) Date Value 07/05/2023 7.8 12/08/2022 7.4 12/26/2013 6.1 Hemoglobin A1C (POCT) (%) Date Value 03/03/2023 9.6 HILDA: she is intolerant to CPAP and has not been wearing. She is scheduled for follow-up with sleep medicine next month. Depression: medications managed by psychiatry. She is currently only treated with Abilify. She has a lot of stress and is very anxious all the time but feels that depression is stable. Review of Systems See HPI PAST MEDICAL HISTORY No date: Cholelithiases 08/10/2022: Chronic bilateral low back pain without sciatica No date: Chronic pain syndrome 03/24/2021: Class 3 severe obesity due to excess calories without serious comorbidity with body mass index (BMI) of 50.0 to 59.9 in adult ([facility]) 08/10/2022: Controlled type 2 diabetes mellitus without complication, without long-term current use of insulin ([facility]) 08/10/2022: DDD (degenerative disc disease), lumbar 01/27/2017: Depression 01/27/2017: Fibromyalgia 08/10/2022: WATSON (generalized anxiety disorder) No date: GERD (gastroesophageal reflux disease) 12/08/2022: Leukocytosis No date: Morbid obesity ([facility]) No date: Obstructive sleep apnea Comment: Not on CPAP 09/18/2011: HILDA (obstructive sleep apnea) No date: PCOS (polycystic ovarian syndrome) 08/10/2022: PTSD (post-traumatic stress disorder) 08/10/2022: Tobacco use disorder No date: Ulnar neuropathy 05/17/2017: Ulnar neuropathy at elbow of left upper extremity Comment: Added automatically from request for surgery [id number] PAST SURGICAL HISTORY 08/2010: APPENDECTOMY 07/21/2017: CHOLECYSTECTOMY HX Comment: Laparoscopic. Dr. Brooks. [facility] No date: DANDC, DIAG AND/OR THERAPEUTIC 06/02/2017: NEUROPLASTY AND/TRANSPOSITION ULNAR NERVE ELBOW; Left Comment: Left Ulnar nerve decompression 06/2022: NRV DESTR RFA, CHEM OTHER; Left No date: TONSILLECTOMY HX ALLERGIES Duloxetine, Elavil [Amitriptyline Hcl], and Gabapentin MEDICATIONS ARIPiprazole (ABILIFY) 10 mg tablet Take 2 tablets by mouth every afternoon. HYDROcodone-acetaminophen (NORCO) 5-325 mg per tablet Take 1 tablet by mouth two times a day as needed. tiZANidine (ZANAFLEX) 4 mg tablet Take 1 tablet by mouth three times a day as needed. carBAMazepine XR (TEGRETOL XR) 200 mg 12 hr tablet Take 1 tablet by mouth every 12 hours. semaglutide (OZEMPIC) 0.25 mg or 0.5 mg (2 mg/3 mL) pen Inject 0.5 mg subcutaneously one time a week. ergocalciferol 50,000 unit capsule (VITAMIN D2, DRISDOL) Take 1 capsule by mouth one time a week. traZODone (DESYREL) 150 mg tablet Take 150 mg by mouth daily at bedtime. glipiZIDE (GLUCOTROL XL) 10mg 24 hr tablet Take 1 tablet by mouth daily with breakfast. blood sugar diagnostic (ONETOUCH ULTRA TEST) test [...] sugar(s) 1 times daily. Dx: Type 2 (more content not included)... [facility] 02-27-2024 Telephone encounter Note Reason for Call: Patient states has had high blood pressure x at least 3 days and currently has dull headache and current blood pressure is 199/112. Patient denies any missed doses of medication. Outcome: Patient advised to go to ED now per guidelines. Patient verbalized understanding of recommendation and care advice and states will be going to [facility] ED now. Reason for Disposition [1] Systolic BP >= 160 OR Diastolic >= 100 AND [2] cardiac (e.g., breathing difficulty, chest pain) or neurologic symptoms (e.g., new-onset blurred or double vision, unsteady gait) Protocols used: Blood Pressure - [id number] [facility] 02-27-2024 Miscellaneous Notes Reason for Call: Patient states has had high blood pressure x at least 3 days and currently has dull headache and current blood pressure is 199/112. Patient denies any missed doses of medication. Outcome: Patient advised to go to ED now per guidelines. Patient verbalized understanding of recommendation and care advice and states will be going to [facility] ED now. Reason for Disposition [1] Systolic BP >= 160 OR Diastolic >= 100 AND [2] cardiac (e.g., breathing difficulty, chest pain) or neurologic symptoms (e.g., new-onset blurred or double vision, unsteady gait) Protocols used: Blood Pressure - [id number] documented in this encounter [facility] 02-11-2024 Telephone encounter Note Patient notified, verbalized understanding. Patient states that she will call back to schedule. [facility] 02-11-2024 Miscellaneous Notes Patient notified, verbalized understanding. Patient states that she will call back to schedule. She should be able to take 2 more caps of Excedrin Migraine. No follow up scheduled for chronic conditions. Please reschedule cancelled appointments. Patient calling, has a migraine that started 6 am this morning, she is rating 9/10. She took 2 Excedrin migraine around 6:30 am. She was nauseous but ate something and does not feel nauseous anymore. She denies any dizziness. States it is on the right side towards her samaritan. Offered an appointment or urgent care, she states she would not be able to come in she is not able to move. Asking if she can take 2 more Excedrin later today? Please advise. documented in this encounter [facility] 02-11-2024 Telephone encounter Note She should be able to take 2 more caps of Excedrin Migraine. No follow up scheduled for chronic conditions. Please reschedule cancelled appointments. [facility] 02-11-2024 Telephone encounter Note Patient sasha, has a migraine that started 6 am this morning, she is rating 9/10. She took 2 Excedrin migraine around 6:30 am. She was nauseous but ate something and does not feel nauseous anymore. She denies any dizziness. States it is on the right side towards her samaritan. Offered an appointment or urgent care, she states she would not be able to come in she is not able to move. Asking if she can take 2 more Excedrin later today? Please advise. [facility] 09-03-2023 History of Present illness Narrative Radiology Service Progress Note PATIENT NAME: Karishma Pickard DATE OF SERVICE: September 03, 2023 TIME: 9:48 AM PATIENT IDENTITY VERIFICATION COMPLETED USING TWO (2) IDENTIFIERS: Name and Date of confirmed by patient verbally. FALL SCREENING: Has the patient had 2 falls in the last year or 1 fall with injury or currently using an Ambulatory Assistive Device (Walker, Cane, Wheelchair, Crutches, etc.)? No PATIENT GENDER DATA: Female. status: : No status: NO. PATIENT RELEVANT IMPLANT DATA REVIEWED: Yes PATIENT PRESENTS WITH AN IMPLANTABLE OR ATTACHED RENAL NURSE: No RADIOLOGY DEPARTMENT: General X-ray: Exam(s) Completed: Chest X-Ray PERIPHERAL IV DATA: Not applicable SIGNED BY: RT Lauren(R) September 03, 2023 9:48 AM documented in this encounter [facility] 09-03-2023 History of Present illness Narrative This note was created using iJentor[employer]. Subjective Patient presents with: F/U 6 Month Karishma Pickard is a 38 year old female here with her friend. She gave a history of recurrent chest pain, mostly beneath the left ribs for 2 years. Pain was variable in severity, sharp, and with no specific triggers. There was no correlation with activity or movement. She has been told this was pleurisy. She requested referral to cardiology for another opinion. She had a negative pharmacologic stress test about 2 years ago. She had followed with Dr. Mcclain in [facility] for cardiology, but wanted a 2nd opinion closer to home. She was also seen in [facility] 08/23/23 for back pain and a fall. Xray of LS spine was unremarkable, and venous duplex for left leg pain was negative for deep vein thrombosis. Other request was referral to psychiatry. Her current psychiatrist felt she was refractory to medicines tried, and she was advised to consider ECT, transcranial EMT, ECT, or ketamine therapy. She was tearful in saying she did not want any of these treatments. Other providers: Raul Leija CNP, Psychiatry, [facility]. Rohini Leavitt MD, [facility]. Cas Hyde MD, Ophthalmology. Rk Mcclain MD, Cardiology, [facility]. Salome Alicia MD, Gynecology. Review of Systems Constitutional: Negative for chills and fever. ACTIVE PROBLEM LIST Hilda (Obstructive Sleep Apnea) Fibromyalgia Depression Gerd (Gastroesophageal Reflux Disease) Class 3 Severe Obesity Due to Excess Calories Without Serious Comorbidity With Body Mass Index (Bmi) of 50.0 to 59.9 in Adult ([facility]) Controlled Type 2 Diabetes Mellitus Without Complication, Without Long-Term Current Use of Insulin ([facility]) Ptsd (Post-Traumatic Stress Disorder) Watson (Generalized Anxiety Disorder) Ddd (Degenerative Disc Disease), Lumbar Chronic Bilateral Low Back Pain Without Sciatica Tobacco Use Disorder Leukocytosis Vitamin D Deficiency Current Outpatient Medications Medication Sig ARIPiprazole (ABILIFY) 10 mg tablet Take 2 tablets by mouth every afternoon. HYDROcodone-acetaminophen (NORCO) 5-325 mg per tablet Take 1 tablet by mouth two times a day as needed. tiZANidine (ZANAFLEX) 4 mg tablet Take 1 tablet by mouth three times a day as needed. carBAMazepine XR (TEGRETOL XR) 200 mg 12 hr tablet Take 1 tablet by mouth every 12 hours. semaglutide (OZEMPIC) 0.25 mg or 0.5 mg (2 mg/3 mL) pen Inject 0.5 mg subcutaneously one time a week. ergocalciferol 50,000 unit capsule (VITAMIN D2, DRISDOL) Take 1 capsule by mouth one time a week. traZODone (DESYREL) 150 mg tablet Take 150 mg by mouth daily at bedtime. glipiZIDE (GLUCOTROL XL) 10mg 24 hr tablet Take 1 tablet by mouth daily with breakfast. blood sugar diagnostic (ONETOUCH ULTRA TEST) test [...] 1 tablet by mouth daily with breakfast. lisinopril (ZESTRIL) 10 mg tablet Take 1 tablet by mouth once daily. pantoprazole DR (PROTONIX) 40 mg tablet Take 1 tablet by mouth daily before breakfast. cetirizine (ZYRTEC) 10 mg tablet Take 1 tablet by mouth once daily. rosuvastatin (CRESTOR) 20 [...] as instructed every 4 hours as needed. busPIRone (BUSPAR) 15 mg tablet Take 15 mg by mouth three times daily. ondansetron (ZOFRAN) 4 mg tablet Take 4 mg by mouth every 8 hours as needed. hydrOXYzine HCl (ATARAX) 25 mg tablet Take 25 mg by mouth as needed (Can take 1-4 per day as needed). carBAMazepine, mood stabiliz, 200 mg CM12 Take 1 tablet by mouth two times a day. (Patient not taking: Reported on 09/03/2023) ARIPiprazole (ABILIFY) 15 mg tablet Take 15 mg by mouth once daily. (Patient not taking: Reported on 09/03/2023) baclofen (LIORESAL) 10 mg tablet Take 10 mg by mouth three times daily. PRN (Patient not taking: Reported on 09/03/2023) HYDROcodone-acetaminophen (NORCO) 5-325 mg per tablet Take 1 tablet by mouth every 6 hours as needed. (Patient not taking: Reported on 09/03/2023) No current facility-administered medications for this visit. Objective BP 117/79 Pulse 118 Resp 18 Wt (!) 154.1 kg (339 lb 12.8 oz) LMP 03/08/2023 (Approximate) SpO2 98% BMI 54.61 kg/m Physical Exam Constitutional: Appearance: She is obese. Cardiovascular: Rate and Rhythm: Regular rhythm. Tachycardia present. Heart sounds: No murmur heard. No gallop. Pulmonary: Effort: No respiratory distress. Breath sounds: No wheezing or rales. Chest: Chest wall: No tenderness. Abdominal: Tenderness: There is no abdominal tenderness. Musculoskeletal: Right lower leg: No edema. Left lower leg: No edema. Neurological: Mental Status: She is alert. EKG RESULTS: sinus tachycardia and inferior infarct pattern, unchanged. Assessment and Plan 1. Pleurodynia - ICD9: 786.52, ICD10: R07.81 (primary diagnosis) Atypical chest pain. - ECG COMPLETE - XR CHEST 2V FRONTAL/LAT - CONSULT TO CARDIOLOGY 2. Controlled type 2 diabetes mellitus without complication, without long-term current use of insulin (HCC) - ICD9: 250.00, ICD10: E11.9 - Controlled - Continue current medications - COMP METABOLIC PANEL - LIPID PANEL BASIC - HGB A1C - ALBUMIN/CREAT RATIO RND UR 3. PTSD (post-traumatic stress disorder) - ICD9: 309.81, ICD10: F43.10 - I offered to refer her to [facility] due to complexity of her issues. She seemed discouraged and declined referral. I encouraged her to stay with her halfway mental health provider and discuss her concerns about treatments being recommended. I advised her my preference for ECT due to proven efficacy. 4. WATSON (generalized anxiety disorder) - ICD9: 300.02, ICD10: F41.1 See above. 5. Depression, unspecified depression type - ICD9: 311, ICD10: F32.A See above. 6. Vitamin D deficiency - ICD9: 268.9, ICD10: E55.9 Supplemented. 7. Leukocytosis, unspecified type - ICD9: 288.60, ICD10: D72.829 Monitored. - PSYCHIATRIC Denis Garcia MD documented in this encounter [facility] 08-20-2023 Miscellaneous Notes Images from the original note were not included. Electronic PA completed for ozempic. This was approved. Prior authorization approved Payer: [facility] Your PA request for [id number] was approved for 364 days. The PA# assigned is [id number]. Approval Details Authorization number: [id number] Authorized from August 20, 2023 to August 18, 2024 Electronic appeal: Not supported View History Medication Being Authorized semaglutide (OZEMPIC) 0.25 mg or 0.5 mg (2 mg/3 mL) pen Inject 0.5 mg subcutaneously one time a week. Dispense: 3 mL Refills: 2 Start: 08/20/2023 Class: Normal Diagnoses: Controlled type 2 diabetes mellitus without complication, without long-term current use of insulin (HCC) This order has been released to its destination. To be filled at: e- [facility]/pharmacy #[id number] [place] [address] - [address] [phone] documented in this encounter [facility] 08-20-2023 Miscellaneous Notes Patient's request for medication is as follows Requested Prescriptions Signed Prescriptions Disp Refills semaglutide (OZEMPIC) 0.25 mg or 0.5 mg (2 mg/3 mL) pen 3 mL 2 Sig: Inject 0.5 mg subcutaneously one time a week. Authorizing Provider: DENIS GARCIA Order entered - please phone pharmacy and notify patient. Denis Garcia MD Trulicity is on backorder, asking for alternative. Bernarda Segovia LPN documented in this encounter [facility] 08-06-2023 Telephone encounter Note Noted; thank you! [facility] 08-06-2023 Miscellaneous Notes Noted; thank you! documented in this encounter [facility] 06-14-2023 Procedure note [facility] 06-04-2023 History of Present illness Narrative Images from the original note were not included. [facility] Follow up/ Established patient [...] perceived benefit by the patient: more rested - SLEEP HYGIENE QUESTIONS: No routine sleep schedule PATIENT-ENTERED QUESTIONNAIRE SLEEP SCORES Sleep Questions 06/02/2023 Reason for visit: Sleep apnea, Difficulty falling or staying asleep or poor sleep quality, Unsure Average hours slept in 24 hours: - Average hours of CPAP per night: 3.3 Percent of nights CPAP used at least 4 hours: 1 Accidents or near accidents due to drowsy drivin [place] Sleepiness Scale 04/08/2023 06/02/2023 Score 10 (No [...] depending on your insurance coverage. Contact your [employer] company for new supplies as needed. - Follow up in 1 yr, but encouraged her to follow up sooner for concerns Angela Phoenix APRN.[employer] SALES CONSULTANT documented in this encounter [facility] 04-12-2023 Instructions Alexander Espinoza Jr., MD - 04/12/2023 9:03 AM EDT Your most recent body mass index (BMI) that we have on record is 52.26 kg/m2. Obstructive sleep apnea (HILDA) worsens with an increase in weight; reduction in weight may improve or resolve your HILDA. If you are not already seeking treatment, there are resources available at the [facility] such as a nutrition consultation or referral to weight management programs at our [facility]. Please let us know if we can assist with a referral. documented in this encounter [facility] 04-12-2023 History of Present illness Narrative 03/02/2023 [...] AND PHYSICAL EXAM PRIMARY CARE PHYSICIAN: Denis Garcia MD REASON FOR CONSULT: HILDA REFERRING PHYSICIAN: Denis Garcia MD CHIEF COMPLAINT: HILDA Consultation requested by Denis Garcia MD for an opinion regarding chief complaint [...] as determined by sleep study performed at [facility] in 2018. The AHI was reportedly [...] years ago but states it was a pain, but PCP then made her have another this year 09/17/22. That study also performed at [facility] and I interpreted study recommending Auto [...] 15 (Moderately Severe Depression) 14 (Moderate Depression) Bristol Sleepiness Scale 12/06/2022 03/02/2023 04/08/2023 Score - [...] (BMI) of 50.0 to 59.9 in adult ([facility]) 03/24/2021 Controlled type 2 diabetes mellitus without complication, without long-term current use of insulin ([facility]) 08/10/2022 DDD (degenerative disc disease), lumbar 08/10/2022 Depression 01/27/2017 Fibromyalgia 01/27/2017 WATSON (generalized anxiety disorder) 08/10/2022 GERD (gastroesophageal reflux disease) Leukocytosis 12/08/2022 Morbid obesity ([facility]) Obstructive sleep apnea Not on CPAP HILDA (obstructive sleep apnea) 09/18/2011 PCOS (polycystic ovarian syndrome) PTSD (post-traumatic stress disorder) 08/10/2022 Tobacco use disorder 08/10/2022 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 Patient will follow up in 6 weeks to see if improves. Advised patient to avoid activities that could harm self or others when tired/sleepy, including driving and/or operating heavy machinery. Encouraged weight loss, and continued compliance with other medications. Encouraged follow up with [facility] for MS. 5. Chronic insomnia - ICD9: [...] which included preparing to see the patient, [id number] patient care, completing clinical documentation, obtaining and/or [...] study not recommended) documented in this encounter [facility] 03-22-2023 Miscellaneous Notes New script sent Pharmacy Issue / Patient called said [facility] in [place] [phone] needs to know what kind of BLOOD GLUCOSE TEST needs to be reordered? (One Touch Ultra 2 is the machine she uses) She can be reached at [phone] Please advise documented in this encounter [facility] 03-15-2023 Procedure note [facility] 03-10-2023 History of Present illness Narrative Images [...] Left 02/26/2022 ABLATION COLPOCLESIS Right 07/29/2022 APPENDECTOMY 2009 [facility] CHOLECYSTECTOMY 07/21/2017 dr. brooks / [facility] ELBOW SURGERY 06/02/2017 [facility] - ULNAR NERVE HYSTEROSCOPY 09/01/2021 Biopsy endometrium, IUD insertion TONSILLECTOMY (HISTORICAL) 2010 [place] Review of Systems REVIEW OF SYSTEMS: Gen: [...] per week. 2. Maintain yearly visits with CENTER P[employer]CH OPERATOR for well-woman exam. 3. Establish care with [...] Expiration Date: 03/10/2024 documented in this encounter [facility] 03-03-2023 History of Present illness Narrative This note was created using [employer]. Subjective Karishma Pickard is a 38 year old female. She rarely monitored her glucose. Medication intake may be erratic as well. She refused metformin, due to history of GI upset. She did not tolerate her CPAP with facial irritation and nasal congestion. She was scheduled with sleep medicine but not till next spring. She was scheduled with [facility] in March, and with her machine tool operator in [place]. She was dealing with depression and scheduled to follow up with [facility]. Review of Systems Constitutional: Negative for fever. [...] (Bmi) of 50.0 to 59.9 in Adult ([facility]) Controlled Type 2 Diabetes Mellitus Without Complication, Without Long-Term Current Use of Insulin (Formerly [facility]) Ptsd (Post-Traumatic Stress Disorder) Watson (Generalized Anxiety [...] complication, without long-term current use of insulin (FORM[facility]) - ICD9: 250.00, ICD10: E11.9 (primary diagnosis) [...] (BMI) of 50.0 to 59.9 in adult ([facility]) - ICD9: 278.01, V85.43, ICD10: E66.01, Z68.43 [...] supplementation. - VITAMIN D 25 HYDROXY Denis Garcia MD documented in this encounter [facility] 02-01-2023 Miscellaneous Notes Noted. Thank you. Christiano Hough DO Cancelling apt. see 12/09 phone note. Grazyna Karimi LPN Karishma Pickard would like to cancel the following appointments: Dr. Mohsen Hough DO in [facility] ([phone]), 02/02/2023 10:10 AM Comments: Don't feel it is needed at this time will continue to keep checking up with pcp and go from there, thank you for your time and understanding Pt sent the above message via [employer] and called in to cancel apt. Pt declined to reschedule stating she will follow up with her PCP documented in this encounter [facility] 01-28-2023 Miscellaneous Notes Patient notified, she is requesting order to go to [facility]. Order faxed to [facility]. Advised, PSS will contact her to scheduled Consult. Bernarda Segovia LPN ASSESSMENT/PLAN: 1. HILDA (obstructive sleep apnea) - ICD9: 327.23, ICD10: G47.33 Increase fluids for now and continue humidifier setting of 8. - CONSULT TO SLEEP MEDICINE - ADULT Denis Garcia MD Pt asking PCP to reply to below message via [employer]. Pt calls to report she is having trouble with bi-pap machine/mask. Pt reports the mask is causing extreme dry mouth. Pt reports she called the company and was advised pt could turn the humidifier up. Pt reports setting for humidifier was set at 4. Pt tried 6 then 8 and that did not help. Pt has setting on 6 currently. Pt reports the skin where mask is now is scaly and dry. Pt reports she is trying to be compliant but is really having a hard time with this and is asking what she can do. Sleep study was done at [facility] and ordered by Ginny Mcrae CNP in Oct, 2022. Please review and advise. Liset Aguilar LPN documented in this encounter [facility] 01-27-2023 Miscellaneous Notes Reason for call: High blood sugar readings Outcome: Advised to Go to ED Now per Dr. Garcia. Patient verbalized understanding and is agreeable to [...] denies Protocols used: Diabetes - High Blood Ltryg-RLTBB-KS documented in this encounter [facility] 12-21-2022 Miscellaneous Notes PATIENT NOTIFIED OF SAME. Called and left a voicemail for the Patient to call back and ask for a nurse to receive the providers message. Chely Ferguson RN Messages from oncology noted. ASSESSMENT/PLAN: 1. Microscopic hematuria - ICD9: 599.72, ICD10: R31.29 Repeat in one week. - URINALYSIS, WITH MICROSCOPIC Denis Garcia MD Patient is aware of all information [...] Christiano Hough DO documented in this encounter [facility] 12-17-2022 History of Present illness Narrative Patient's request for medication is as follows Requested Prescriptions Signed Prescriptions Disp Refills ergocalciferol 50,000 unit capsule (VITAMIN D2, DRISDOL) 12 capsule 1 Sig: Take 1 capsule by mouth one time a week. Order entered - please phone pharmacy and notify patient. Denis Garcia MD documented in this encounter [facility] 12-08-2022 History of Present illness Narrative Radiology Service Progress Note PATIENT NAME: Karishma [...] RT Alfredo(R) December 08, 2022 10:33 AM documented in this encounter [facility] 10-09-2022 Miscellaneous Notes Detailed message left [...] message. Steph Enrique documented in this encounter [facility] 09-23-2022 History of Present illness Narrative [...] in detail. Susana Moon MD cc: Susana Garcia MD documented in this encounter [facility] 09-14-2022 Procedure note [facility] [facility] 09-04-2022 Miscellaneous Notes Pt seen [facility] 08/10/22. Next appt is 12/08/22. Patient has [...] Cheryl Morales Pss documented in this encounter [facility] 08-18-2022 Miscellaneous Notes Patient notified, asking to be sent to [facility]. Med list updated. Take 1/2 tablet of the Farxiga 10 mg tablet. Where does she want the new dose to go? Ginny Mcrae APRN.CNP Pt called in and reports her weight [...] Pt and advise. documented in this encounter [facility] 08-18-2022 Telephone encounter Note Phone conversation 7 p.m. blood sugar 80 2 hour after breakfast 178 Trulicity is on hold Recommended to contact PCP with discuss the dose of farxiga ( current dose is 10 mg) The goal is to maximize weight loss and BS control Will restart Trulicity during the visit 1.5 The pt is agreeable to the plan [facility] 08-18-2022 Miscellaneous Notes Phone conversation 7 p.m. blood sugar 80 2 hour after breakfast 178 Trulicity is on hold Recommended to contact PCP with discuss the dose of farxiga ( current dose is 10 mg) The goal is to maximize weight loss and BS control Will restart Trulicity during the visit 1.5 The pt is agreeable to the plan Patient would like call to address blood sugar concerns. She has stopped taking Farxigan and Trulicity upon physician advice. Blood sugar averages 60-80 but has dropped as low as 35. Please advise. Patient called in blood surgars since holding her farxiga and they have been running between the high 80s and 110's, Dr. Alfred advised to continue holding farxiga throughout the weekend since she did take the trulicity already. Patient voiced understanding. Informed patient that I would send messge to Dr. De Jesus for further follow up. Spoke with patient this morning and advised her to hold farxiga x2 since she did already take her trulicity last night. Patient also given # to call solomonorrow and let me know how her blood sugars are running, also advised patient to make sure she eats at least 3 times a day. Patient voiced understanding. Images from the original note were not included. MD Michelle Waller MA 1 hour ago (8:45 AM) KW Michelle ,have patient hold trulicity for now . I would have her hold one dose of farxiga today . Have her call us tomorrow or Wednesday with update on blood sugars Mabel Alfred MD 1 hour ago (8:32 AM) DB Dr. Alfred can you please address patient concerns? Dr. De Jesus out of office this week. Thank you! Patient called in stating that since her dose of Trulicity has been increased her blood sugar levels have been dropping and she is unable to eat. Requesting a call back regarding this matter. documented in this encounter [facility] 08-18-2022 Telephone encounter Note Patient would like call to address blood sugar concerns. She has stopped taking Farxigan and Trulicity upon physician advice. Blood sugar averages 60-80 but has dropped as low as 35. Please advise. [facility] 08-17-2022 Miscellaneous Notes FYI-Per previous labor custodian at [facility]- Labs without marked abnormality. Elevated wbc and slight elevation in plt count due to chronic inflammation from pain, smoking, weight, stress. No obvious evidence of myeloproliferative process. Can continue to f/u with PCP and return if marked change in blood counts in future. Patient only seen her last labor custodian once and that was in 2016, Dr.Bradley Larios. Per Phylicia the nurse, this information can be seen in care everywhere. Phylicia stated I should call the patient to get her scheduled to see when able. I called and spoke to Karishma and scheduled her per her request for 09/02/22 @ 8:30 am, she confirmed this date, time and location. Steph Solis Pss Please request records from previous labor custodian/oncologist. Please contact for that information. Tawny Yu LPN Patient calling stating she is being referred by Ginny Mcrae to hemoc for Thrombocytosis [D75.839] Leukocytosis, unspecified type [D72.829]. Please advise when patient can be seen and call patient to schedule. documented in this encounter [facility] 08-14-2022 Telephone encounter Note Patient called in blood surgars since holding her farxiga and they have been running between the high 80s and 110's, Dr. Alfred advised to continue holding farxiga throughout the weekend since she did take the trulicity already. Patient voiced understanding. Informed patient that I would send messge to Dr. De Jesus for further follow up. [facility] 08-14-2022 Miscellaneous Notes Patient called in blood surgars since holding her farxiga and they have been running between the high 80s and 110's, Dr. Alfred advised to continue holding farxiga throughout the weekend since she did take the trulicity already. Patient voiced understanding. Informed patient that I would send messge to Dr. De Jesus for further follow up. Spoke with patient this morning and advised her to hold farxiga x2 since she did already take her trulicity last night. Patient also given # to call tomorrow and let me know how her blood sugars are running, also advised patient to make sure she eats at least 3 times a day. Patient voiced understanding. Images from the original note were not included. MD Michelle Waller MA 1 hour ago (8:45 AM) DEBRA Martinez ,have patient hold trulicity for now . I would have her hold one dose of farxiga today . Have her call us tomorrow or Wednesday with update on blood sugars Mabel Alfred MD 1 hour ago (8:32 AM) DB Dr. Alfred can you please address patient concerns? Dr. De Jesus out of office this week. Thank you! Patient called in stating that since her dose of Trulicity has been increased her blood sugar levels have been dropping and she is unable to eat. Requesting a call back regarding this matter. documented in this encounter [facility] 08-12-2022 Telephone encounter Note Spoke with patient this morning and advised her to hold farxiga x2 since she did already take her trulicity last night. Patient also given # to call tomorrow and let me know how her blood sugars are running, also advised patient to make sure she eats at least 3 times a day. Patient voiced understanding. [facility] 08-12-2022 Telephone encounter Note Images from the original note were not included. MD Michelle Waller MA 1 hour ago (8:45 AM) DEBRA Michelle ,have patient hold trulicity for now . I would have her hold one dose of farxiga today . Have her call us tomorrow or Wednesday with update on blood sugars Mabel Alfred MD 1 hour ago (8:32 AM) DB Dr. Alfred can you please address patient concerns? Dr. De Jesus out of office this week. Thank you! [facility] 08-11-2022 Telephone encounter Note Patient called in stating that since her dose of Trulicity has been increased her blood sugar levels have been dropping and she is unable to eat. Requesting a call back regarding this matter. [facility] 08-10-2022 History of Present illness Narrative CC: Patient presents with: Establish Care HPI Karishma Pickard is a 37 year old female who presents today for above. Previous PCP DR. Pari Noyola History of PTSD, WATSON and severe depression. Medications managed by psychiatry, Dr. Chito Leija in [place]. She also has counseling once a week. [...] the past 6 months, goes to the [facility]. She has chronic widespread pain secondary to [...] 05/17/2017 Added automatically from request for surgery [id number] PAST SURGICAL HISTORY Procedure Laterality Date APPENDECTOMY 08/2010 CHOLECYSTECTOMY HX 07/21/[address] Brooks[address] [facility] D[facility], DIAG AND/OR THERAPEUTIC NEUROPLASTY &/TRANSPOSITION [...] 120 Resp 20 Ht 167.6 cm (5' 6) Wt (!) 156.9 kg (346 lb) LMP [...] complication, without long-term current use of insulin ([facility]) - ICD9: 250.00, ICD10: E11.9 (primary diagnosis) The patient is new to me. - Continue current medications - HGB A1C [...] (BMI) of 50.0 to 59.9 in adult ([facility]) - ICD9: 278.01, V85.43, ICD10: E66.01, Z68.43 [...] repeat sleep study. Will fax order to [facility] per patient request 10. Gastroesophageal reflux [...] Patient agreeable to treatment plan. Ginny Mcrae APRN.UNIQUE documented in this encounter [facility] 07-20-2022 Telephone encounter Note S: Patient spoke [...] would like to be seen by Dr Alicia. Provided pt with Dr Alicia's first available appt on 09/02/22 at 10:30 [...] Protocols used: Contraception - IUD Symptoms and Eemtdopme-JQAWR-QH [employer] 07-20-2022 Miscellaneous Notes S: Patient spoke with [...] would like to be seen by Dr Alicia. Provided pt with Dr Alicia's first available appt on 09/02/22 at 10:30 [...] Protocols used: Contraception - IUD Symptoms and Guiimjktt-ODMYI-SW documented in this encounter [facility] 07-13-2022 Procedure note [facility] 07-08-2022 History of Present illness Narrative [facility] NON-SURGICAL WEIGHT LOSS MANAGEMENT PROGRAM ROOMING NOTE: FOLLOW UP VISIT Patient: Karishma Pickard Date of : 1985 Service Date: 07/08/2022 Patient History/Assessment Summary: The patient is a pleasant 37 y.o. year old female, who stands Height: 5' 7 (170.2 cm) tall with a weight of Weight: (!) 347 lb 12.8 oz (158 kg) pounds, resulting in a BMI of Body mass index is 54.47 kg/m . kg/m2. She is here for follow-up for non-surgical treatment of Morbid Obesity Patient has the following question(s): none Pre Program Weight Metrics ([facility]ARE [facility]) Date of Initial Consultation:@FLOWLAST([id number])@ Initial Weight: @FLOWLAST([id number])@ Initial BMI: @FLOWLAST([id number])@ [place] Body Weight: @FLOWLAST([id number])@ Excess Body Weight: @FLOWLAST([id number])@ Body Fat Percentage: No flowsheet data found. Subsequent Body Fat Percentage: No flowsheet data found. Pre Program Weight Metrics (Epic) (Surgical Wt Loss Management- baseline) This Visit Non-Surgical Subsequent Eval Date: 07/08/22 Height: 5' 7 (170.2 cm) Weight: 347 lb 12.8 oz (158 kg) BMI: 54.47 Weight Change: 1.8 lbs Total Weight Change: <No Previous Non-Surg Weight on File> lbs % EBWL: <UNK>% Subsequent Body Fat %: 65.36 Body Fat % Change: 0.33 Follow Up Weight Metrics Last Three Weights Including Today's Weight: Wt Readings from Last 3 Encounters: 07/08/22 (!) 347 lb 12.8 oz (158 kg) 02/04/22 (!) 334 lb (152 kg) 10/13/21 (!) 359 lb (163 kg) Diabetes Do you currently have diabetes? Yes Are you currently prescribed insulin? Yes Are you currently prescribed an oral medication for diabetes? Yes GERD (Gastroesophageal Reflux Disease) Do you currently have GERD? Yes Do you get heartburn type symptoms more than twice per week? Yes Are you currently on a medication for GERD? (not TUMS) (examples: Prilosec/omeprazole, Zantac/ranitidine, etc.) Yes Hyperlipidemia (high cholesterol) Do you currently have a diagnosis of high cholesterol? Yes Are you currently prescribed a medication for high cholesterol? (examples Lipitor/Atorvastatin, Pravastatin, Zetia, Tricor, etc.) Yes Have you been diagnosed with high cholesterol but chosen not to take medication? No Hypertension (high blood pressure) Do you currently have a diagnosis of Hypertension? Yes Are you currently on a medication for Hypertension? Yes Have you been diagnosed with Hypertension but have chosen not to take the medication? No Sleep Apnea Do you currently have Sleep Apnea? Yes Are you on a device (CPAP, BiPAP, etc) for Sleep Apnea? Yes Have you been diagnosed with Sleep Apnea but cannot tolerate or have chosen not to treat? Yes Comorbids summary (flow sheet comorbids) Falls Risk Assessment Patient does take medications which affect BP or mental status Patient does not have newly prescribed or changed dosage of medications within past 30 days which affect BP or mental status Patient has not fallen in the past 2 months Patient does not demonstrate unsteady gait Patient uses the following ambulatory assistive devices: NONE Patient states the presence of the following traits which increases risk of fall: NONE Patient is not on home O2 Completed by: Melly Jang MA HPI, PHYSICAL EXAMINATION & PLAN HPI: Patient here today for follow up for non-surgical weight loss management Weight trend since last visit: gained 11 lbs over 1 m stable This patient's excess weight is causing the following co-morbid conditions at this time:DM Physical Examination: BP (!) 146/88 Pulse 105 Resp 18 Ht 5' 7 (1.702 m) Wt (!) 347 lb 12.8 oz (158 kg) BMI 54.47 kg/m General: This patient is calm and pleasant General: This patient is awake, alert, and oriented, and is in no apparent distress. Extremities: No cyanosis, clubbing or edema/ No calf tenderness/No restrictions of movement, is ambulatory without assistance. Neurological: Intact x 4 extremities, no focal deficits notes. Skin: No rashes or lesions noted. Social History: This patient is alone for the evaluation today. She does notsmoke, and does notdrink alcohol. Current Diet This patient s current diet is: 80% meal plan Her diet contains adequate amounts of protein, adequate amounts of healthy fats, adequate amounts of green, leafy vegetables, and adequate amounts of fruits. Her comfort foods include: none Current Activity This patient currently does exercise for 45 Minutes per session, 4 times per week, including the following: walking. Current Eating Behaviors This patients demonstrates the following behaviors as they relate to her eating: structured She eats approximately 3-4 times per day. Her last meal/snack was at 6 am/pm. Progress Made Towards Goals: 3 month weight goal: 20 6 month weight goal: 30 12 month weight goal: 40 Plan: Obesity stable Continue current management, continue weight loss program DM Trulicity 3 mg Continue current management, continue weight loss program stable [x] Protein goal of 1g protein per 1 kg of ideal body weight: 75 grams [x] Patient advised to maintain a food/exercise/behavior diary until next physician visit and to bring the completed diary to next visit [] Referred patient to surgical weight loss management program (FD to place referral) Other: Trulicity 3 mg Physician Diet Recommendations given to patient See Follow up Section of today's encounter for next visit and additional scheduling orders Obtain follow up lab work: BARIATRIC; Non Surg Lab orders: no Patient is not taking anti-obesity medication. I spend a total of 20 minutes [...] was performed.Clinical documentation is updated and completed. documented in this encounter [facility] 06-10-2022 History of Present illness [...] stated that they are currently in the [facility]. If the patient is a minor, permission has been obtained by the parent or guardian for the patient to receive medical care at this visit. documented in this encounter [facility] 09-01-2021 Hospital Discharge instructions Salome Alicia MD - 09/01/2021 Images from the original [...] your doctor if you can take an brie-nxn-hldtbyw medicine. If your doctor prescribed antibiotics, take [...] Where can you learn more? Go to [email or web address] and sign in to your [employer] account. Enter U442 in the Search Health Information box to learn more about Hysteroscopy With Dilation and Curettage: What to Expect at Home. If you do not have an account, please click on the Sign Up Now link. Current as of: December 11, 2020 Content Version: 13.1 [employer]. Care instructions adapted under license by [employer]. If you have questions about a medical condition or this instruction, always ask your healthcare professional. [employer] disclaims any warranty or liability for your use of this information. documented in this encounter [facility] Work Phone: 09-01-2021 History of Present illness Narrative Pt tolerating po fluids and crackers well. documented in this encounter [facility] Work Phone: 03-24-2021 History of Present illness Narrative Radiology Service Progress Note PATIENT NAME: Karishma Pickard DATE OF SERVICE: March 24, 2021 TIME: 11:31 AM PATIENT IDENTITY VERIFICATION COMPLETED USING TWO (2) IDENTIFIERS: Name and Date of confirmed by patient verbally. FALL SCREENING: Has the patient had 2 falls in the last year or 1 fall with injury or currently using an Ambulatory Assistive Device (Walker, Cane, Wheelchair, Crutches, etc.)? No PATIENT GENDER DATA: Female. status: : No status: NO. PATIENT RELEVANT IMPLANT DATA REVIEWED: Yes RADIOLOGY DEPARTMENT: General X-ray: Exam(s) Completed: Chest X-Ray PERIPHERAL IV DATA: Not applicable SIGNED BY: RT Lauren(R) March 24, 2021 11:31 AM documented in this encounter [facility] 09-18-2011 History of Past i llness Narrative Problem Noted Date Resolved Date Tonsillitis, chronic 09/18/2011 05/28/2017 T/A hypertrophy 09/18/2011 05/28/2017 documented as of this encounter (statuses as of 08/10/2022) [facility] History of Past illness Narrative* Problem Noted Date Resolved Date Tonsillitis, chronic 09/18/2011 05/28/2017 T/A hypertrophy 09/18/2011 05/28/2017 documented as of this encounter (statuses as of 08/17/2022) [facility] History of Past illness Narrative* Problem Noted Date Resolved Date Tonsillitis, chronic 09/18/2011 05/28/2017 T/A hypertrophy 09/18/2011 05/28/2017 documented as of this encounter (statuses as of 08/18/2022) [facility] History of Past illness Narrative* Problem Noted Date Resolved Date Tonsillitis, chronic 09/18/2011 05/28/2017 T/A hypertrophy 09/18/2011 05/28/2017 documented as of this encounter (statuses as of 09/04/2022) [address] History of Past illness Narrative* Problem Noted Date Resolved Date Tonsillitis, chronic 09/18/2011 05/28/2017 T/A hypertrophy 09/18/2011 05/28/2017 documented as of this encounter (statuses as of 09/22/2022) [address] History of Past illness Narrative* Problem Noted Date Resolved Date Tonsillitis, chronic 09/18/2011 05/28/2017 T/A hypertrophy 09/18/2011 05/28/2017 documented as of this encounter (statuses as of 09/23/2022) [address] History of Past illness Narrative* Problem Noted Date Resolved Date Tonsillitis, chronic 09/18/2011 05/28/2017 T/A hypertrophy 09/18/2011 05/28/2017 documented as of this encounter (statuses as of 10/10/2022) [address] History of Past illness Narrative* Problem Noted Date Resolved Date Tonsillitis, chronic 09/18/2011 05/28/2017 T/A hypertrophy 09/18/2011 05/28/2017 documented as of this encounter (statuses as of 12/17/2022) [address] History of Past illness Narrative* Problem Noted Date Resolved Date Tonsillitis, chronic 09/18/2011 05/28/2017 T/A hypertrophy 09/18/2011 05/28/2017 documented as of this encounter (statuses as of 12/21/2022) [address] History of Past illness Narrative* Problem Noted Date Diagnosed Date Resolved Date Tonsillitis, chronic 09/18/2011 017 T/A hypertrophy 09/18/2011 05/28/2017 documented as of this encounter (statuses as of 01/28/2023) [address] History of Past illness Narrative* Problem Noted Date Diagnosed Date Resolved Date Tonsillitis, chronic 09/18/2011 017 T/A hypertrophy 09/18/2011 05/28/2017 documented as of this encounter (statuses as of 02/01/2023) [facility] History of Past illness Narrative* Problem Noted Date Diagnosed Date Resolved Date Tonsillitis, chronic 09/18/2011 017 T/A hypertrophy 09/18/2011 05/28/2017 documented as of this encounter (statuses as of 03/03/2023) [address] History of Past illness Narrative* Problem Noted Date Diagnosed Date Resolved Date Tonsillitis, chronic 09/18/2011 017 T/A hypertrophy 09/18/2011 05/28/2017 documented as of this encounter (statuses as of 03/22/2023) [facility] History of Past illness Narrative* Problem Noted Date Diagnosed Date Resolved Date Tonsillitis, chronic 09/18/2011 017 T/A hypertrophy 09/18/2011 05/28/2017 documented as of this encounter (statuses as of 04/12/2023) [facility]03-[facility]2012 History of Past illness Narrative* Problem Noted Date Diagnosed Date Resolved Date Tonsillitis, chronic 09/18/2011 017 T/A hypertrophy 09/18/2011 05/28/2017 documented as of this encounter (statuses as of 06/04/2023) [facility] History of Past illness Narrative* Problem Noted Date Diagnosed Date Resolved Date Tonsillitis, chronic 09/18/2011 017 T/A hypertrophy 09/18/2011 05/28/2017 documented as of this encounter (statuses as of 08/20/2023) [facility] History of Past illness Narrative* Problem Noted Date Diagnosed Date Resolved Date Tonsillitis, chronic 09/18/2011 017 T/A hypertrophy 09/18/2011 05/28/2017 documented as of this encounter (statuses as of 08/20/2023) [facility] History of Past illness Narrative* Problem Noted Date Diagnosed Date Resolved Date Tonsillitis, chronic 09/18/2011 017 T/A hypertrophy 09/18/2011 05/28/2017 documented as of this encounter (statuses as of 08/31/2023) [facility] History of Past illness Narrative* Problem Noted Date Diagnosed Date Resolved Date Tonsillitis, chronic 09/18/2011 017 T/A hypertrophy 09/18/2011 05/28/2017 documented as of this encounter (statuses as of 09/03/2023) [facility] January 28, 2023 1:20am Note Date/Time January 28, 2023 1:1 7am [facility] Medical Records Department [address] [place] [address] Emergency Department Summary 01/28/23 MR#: [id number] Acct: [id number] Name: KARISHMA PICKARD Rep #:[id number] 38 From: Richard Heart MD PCP: Dr. Denis Garcia MD Status:R EG ER Location: ED HPI History of Present Illness Chief Complaint: Hyperglycemia Informant: patient Narrative Narrative: Patient states she felt nauseated earlier which made her check her blood sugar and it was 400, and this is what brought her to the emergency department. She is a type II diabetic, she states she has eaten more sugar today than usual but she has had polyuria and polydipsia for maybe 2 weeks, and that is about how long ago the last time she checked her blood sugar was. She states she was accidentally out of her Jardiance for about 4 days but now she has it. She has been taking her other diabetes medications. She denies any recent illness. [facility] Medical History Anxiety Back pain Balance problem BiPAP (biphasic positive airway pressure) dependence Blister Cardiology follow-up encounter Chest pain Chronic neck and back pain Depression Diabetes Dietary restriction Fatigue Fibromyalgia Gastric reflux History of edema History of pain when walking Hypertension Leg cramps Marijuana use OCD (obsessive compulsive disorder) PTSD (post-traumatic stress disorder) Shortness of breath on exertion Smoker Ulnar nerve entrapment Wears glasses Home Medications baclofen 10 mg tablet 1 tab PO TID 11/17/19 [History Last Taken Unknown] nabumetone 500 mg tablet 500 mg PO BID 11/17/19 [History Last Taken Unknown] buspirone 10 mg tablet 15 mg PO TID 02/12/20 [History Last Taken Unknown] clonidine HCl 0.1 mg tablet 0.1 mg PO DAILY 02/21/21 [History Last Taken 01/26/22 0.1 mg] lisinopril 10 mg tablet 10 mg PO DAILY 02/21/21 [History Last Taken 01/26/22 10 mg] pantoprazole 20 mg tablet,delayed release (Protonix) 40 mg PO DAILY 03/02/21 [History Last Taken 01/26/22 40 mg] vortioxetine 20 mg tablet (Trintellix) 20 mg PO DAILY 03/02/21 [History Last Taken Unknown] dapagliflozin propanediol 5 mg tablet (Farxiga) 5 mg PO DAILY 07/23/21 [History Last Taken Unknown] hydrocodone-acetaminophen 5-325mg 5mg-325mg 1 tab PO Q4H PRN PRN Pain 2 days #8 TABLETS 10/12/21 [Rx Last Taken Unknown] divalproex 500 mg tablet,delayed release (Depakote) 500 mg PO BID 11/07/21 [History Last Taken Unknown] aripiprazole 10 mg tablet 20 mg PO DAILY 01/27/23 [History Last Taken Unknown] Allergy/AdvReac Type Severity Reaction Status Date / Time adhesive tape Allergy BLISTERS Verified 01/27/23 22:29 gabapentin Allergy not alert Verified 01/27/23 22:29 amitriptyline AdvReac NEEDS Verified 01/27/23 22:29 FOLLOW-UP duloxetine [From Cymbalta] AdvReac NEEDS Verified 01/27/23 22:29 FOLLOW-UP mirtazapine [From Remeron] AdvReac NEEDS Verified 01/27/23 22:29 FOLLOW-UP Surgical History History of appendectomy History of tonsillectomy Hx of cholecystectomy Hx of dilation and curettage Social History Smoking Status: Current every day smoker tobacco type: cigarettes ROS ROS ED Constitutional Constitutional ED: Denies chills or fever(s) Eyes Eyes: Denies change in vision or diplopia ENT ENT ED: Denies rhinorrhea or sore throat Cardiovascular Cardiovascular: Denies chest pain or palpitations Respiratory/Chest Respiratory/Chest: Denies cough or dyspnea Gastrointestinal Gastrointestinal: Denies abdominal pain, diarrhea, nausea or vomiting Genitourinary Genitourinary ED: Reports urinary frequency; Denies dysuria or hematuria Musculoskeletal Musculoskeletal: Denies back pain or neck pain Integumentary Denies abscess or rash Neurologic Neurologic: Denies headache(s), paresthesias or weakness Psychiatric Psychiatric: Denies anxiety or suicidal thoughts Endocrine Endocrinology: Reports polydipsia and polyuria EXAM Physical Exam Const Vital Signs: 01/27/23 22:23 01/27/23 23:15 Temperature 97.3 F L Temperature Source Temporal Pulse Rate 116 H Respiratory Rate 15 Respiratory Effort Normal Non-Labored Respiratory Pattern Normal Blood Pressure 178/114 H Blood Pressure Mean 135 Pulse Ox 98 Oxygen Delivery Method Room Air Positive well nourished, well developed and obese General Appearance ED: well developed and NAD Nutritional Appearance: obese HEENT Reports moist mucous membranes normocephalic and atraumatic Eyes PERRL and EOMs intact bilaterally Neck full ROM and supple Resp normal respiratory effort and clear to auscultation bilaterally Cardio regular rate, regular rhythm and no murmurs GI non-tender and non-distended Auscultation: normoactive bowel sounds Palpation: soft Back/Spine no CVA tenderness General Back: other FROM Extremity normal to inspection General Extremety ED: Negative for edema, pulses abnormal or tenderness General Extremity: Negative for edema or pulses abnormal Neuro oriented x3, CN's II-XII intact bilaterally and no sensory deficits noted Sensorium / Orientation: awake and alert Motor Exam: strength 5/5 throughout Psych mental status grossly normal Skin no rashes or lesions noted and no wounds MDM MDM MDM Narrative Medical decision making narrative: Basic labs and urinalysis were obtained while we gave her a liter of IV fluids and 14 units of subcutaneous insulin lispro. She felt much better afterwards, her blood sugar came down to 193, and she was allowed to go home. Urine shows no signs of infection, her urinary frequency/polyuria is due to glycosuria, she does have a nonspecific leukocytosis, I do not think that needs to be worked up more emergently right now since she has no other symptoms. We did recheck her blood sugar, was very high 178/114 at triage, now it is 149/99. Advised to follow-up with her doctor. Lab Data Attestation: I reviewed the patient's lab results. Labs: Laboratory Results - last 24 hr 01/27/23 01/27/23 01/27/23 22:32 23:22 23:50 WBC RBC Hgb Hct MCV MCH MCHC RDW Std Deviation RDW Coeff of Domingo Plt Count MPV Immature Gran % (Auto) Neut % (Auto) Lymph % (Auto) [place] % (Auto) Eos % (Auto) Baso % (Auto) Absolute Neuts (auto) Absolute Lymphs (auto) Nucleated RBC % Differential Comment Reactive Lymphocytes Sodium Potassium Chloride Carbon Dioxide Anion Gap BUN Creatinine Estim Creat Clear Calc Est GFR (MDRD) Af Amer Est GFR (MDRD) Non-Af BUN/Creatinine Ratio Glucose Calcium Urine Color Yellow Urine Clarity Clear Urine pH 6.5 Ur Specific [place] 1.015 Urine Protein 15 H Urine Glucose (UA) 1000 H Urine Ketones 15 H Urine Occult Blood Negative Urine Nitrite Negative Urine Bilirubin Negative Urine Urobilinogen Normal Ur Leukocyte Esterase Negative Urine RBC 0 SEEN Urine WBC 0 SEEN Ur Squamous Epith Cells 0 SEEN Urine Bacteria RARE Urine Mucus 0 SEEN POC Glucose 311 H 330 H 01/27/23 23:55 WBC 16.4 H RBC 5.26 Hgb 16.1 H Hct 46.7 MCV 88.8 MCH 30.6 MCHC 34.5 RDW Std Deviation 39.7 RDW Coeff of Domingo 12.2 Plt Count 409 MPV 10.0 Immature Gran % (Auto) 0.700 Neut % (Auto) 50.3 Lymph % (Auto) 42.8 H [place] % (Auto) 5.3 Eos % (Auto) 0.0 Baso % (Auto) 0.9 Absolute Neuts (auto) 8.3 H Absolute Lymphs (auto) 7.01 H Nucleated RBC % 0 Differential Comment SCANNED Reactive Lymphocytes 1+ Sodium 138 Potassium 3.7 Chloride 106 Carbon Dioxide 24.0 Anion Gap 8 BUN 10 Creatinine 0.82 Estim Creat Clear Calc 92.23 Est GFR (MDRD) Af Amer 101 Est GFR (MDRD) Non-Af 84 BUN/Creatinine Ratio 12.2 Glucose 297 H Calcium 9.6 Urine Color Urine Clarity Urine pH Ur Specific [place] Urine Protein Urine Glucose (UA) Urine Ketones Urine Occult Blood Urine Nitrite Urine Bilirubin Urine Urobilinogen Ur Leukocyte Esterase Urine RBC Urine WBC Ur Squamous Epith Cells Urine Bacteria Urine Mucus POC Glucose Discharge Plan Triage Chief Complaint: Hyperglycemia ED Provider: Richard Heart Dx/Rx/DC Orders Clinical Impression: Hyperglycemia due to type 2 diabetes mellitus Instructions: ED Diabetic Hyperglycemia Prescriptions: No Action baclofen 10 mg tablet 1 tab PO TID Patient Comments: TAKE 1 TABLET two - three times daily as needed for spasms. nabumetone 500 MG tablet 500 mg PO BID Hold Instructions: Order Completed buspirone 10 MG tablet 15 mg PO TID clonidine HCl 0.1 mg Tablet 0.1 mg PO DAILY lisinopril 10 mg Tablet 10 mg PO DAILY pantoprazole [Protonix] 20 mg Tablet,Delayed Release (Dr/Ec) 40 mg PO DAILY Trintellix 20 mg tablet 20 mg PO DAILY Patient Comments: Take 1 tablet by mouth once a day Farxiga 5 mg Tablet 5 mg PO DAILY hydrocodone-acetaminophen [hydrocodone-acetaminophen] 1 TABLET tablet 1 tab PO Q4H PRN PRN (Reason: Pain) 2 Days Qty: 8 0RF divalproex [Depakote] 500 mg Tablet,Delayed Release (Dr/Ec) 500 mg PO BID aripiprazole 10 mg tablet 20 mg PO DAILY Patient Comments: TAKE 1 TABLET BY MOUTH EVERY DAY Primary Care Provider: Denis Garcia Referrals: Denis Garcia MD [Primary Care Provider] - (call for follow up appt) Disposition Disposition: Home, Self Care What to do if you have Problems For any increased pain, shortness of breath, bleeding, nausea or vomiting, chestpain, or any unexpected problems, contact your Primary Care Provider. Call [facility] ([phone]) or report to the closest Emergency Room. Call 911 if necessary. 01/28/23 0120 <Electronically signed by Richard Heart MD> Cosigner Signature (if applicable): CC: Dr. Denis Garcia MD ~ Signed [facility] Work Phone: Evaluation noteNo assessment information available [facility] Work Phone: Evaluation note* Diagnosis Onset Date Resolution Status Facet syndrome, lumbar acute [facility] Work Phone: Evaluation note* Diagnosis Hypertension, unspecified type Chest pain, unspecified type documented in this encounter [facility] Work Phone: Evaluation note* Diagnosis Controlled type 2 diabetes mellitus without complication, without long-term current use of insulin (HCC)- Primary Chronic bilateral low back pain without [...] (BMI) of 50.0 to 59.9 in adult ([facility]) HILDA (obstructive sleep apnea) Obstructive sleep apnea (adult) (pediatric) Gastroesophageal reflux disease, unspecified whether esophagitis present Tobacco use disorder Encounter for immunization Need for other specified prophylactic vaccination against single bacterial disease [facility]* Diagnosis Thrombocytosis- Primary Essential thrombocythemia Leukemoid reaction [facility]* Diagnosis Leukocytosis, unspecified type- Primary Erythrocytosis Polycythemia, secondary [facility]* Diagnosis Type 2 diabetes mellitus without complication, without long-term current use of insulin ([facility]) ([facility])- Primary BMI 50.0-59.9, adult ([facility]) Class 3 severe obesity with serious comorbidity and body mass index (BMI) of 50.0 to 59.9 in adult, unspecified obesity type ([facility]) documented in this encounter [facility] note* Diagnosis Vitamin D deficiency- Primary Unspecified vitamin D deficiency [facility] this encounter [facility]* Diagnosis Microscopic hematuria- Primary documented in this encounter [facility] note* Diagnosis Controlled type 2 diabetes mellitus without complication, without long-term current use of insulin ([facility])- Primary Class 3 severe obesity due to excess calories without serious comorbidity with body mass index (BMI) of 50.0 to 59.9 in adult ([facility]) Depression, unspecified depression type Need for influenza vaccination Need for prophylactic vaccination and inoculation against influenza HILDA (obstructive sleep apnea) Obstructive sleep apnea (adult) (pediatric) Vitamin D deficiency Unspecified vitamin D deficiency [facility] encounter [facility]* Diagnosis Women's annual routine gynecological examination- Primary Screen for STD (sexually transmitted disease) Screening examination for venereal disease documented in this encounter [facility] note* Diagnosis Controlled type 2 diabetes mellitus without complication, without long-term current use of insulin ([facility]) [facility] encounter [facility]* Diagnosis HILDA (obstructive sleep apnea)- Primary [...] insomnia Insomnia, unspecified documented in this encounter [facility] note* Diagnosis Obstructive sleep apnea treated with bilevel positive airway pressure (BiPAP)- Primary documented in this encounter [facility] note* Diagnosis Onset Date Resolution Status Neck pain on right side [facility] Work Phone: Evaluation note* Diagnosis Controlled type 2 diabetes mellitus without complication, without long-term current use of insulin ([facility]) documented in this encounter [facility] note* Diagnosis HILDA (obstructive sleep apnea)- Primary Obstructive sleep apnea (adult) (pediatric) documented in this encounter [facility] note* Diagnosis Pleurodynia- Primary Painful respiration Controlled type 2 diabetes mellitus without complication, without long-term current use of insulin ([facility]) PTSD (post-traumatic stress disorder) Posttraumatic stress disorder WATSON (generalized anxiety disorder) Generalized anxiety disorder Depression, unspecified depression type Vitamin D deficiency Unspecified vitamin D deficiency Leukocytosis, unspecified type documented in this encounter [facility] note* Diagnosis Primary hypertension- Primary Unspecified essential hypertension Tachycardia Tachycardia, unspecified Controlled type 2 diabetes mellitus without complication, without long-term current use of insulin ([facility]) Class 3 severe obesity due to excess calories without serious comorbidity with body mass index (BMI) of 50.0 to 59.9 in adult (HCC) Vitamin D deficiency Unspecified vitamin D deficiency HILDA (obstructive sleep apnea) Obstructive sleep apnea (adult) (pediatric) WATSON (generalized anxiety disorder) Generalized anxiety disorder PTSD (post-traumatic stress disorder) Posttraumatic stress disorder Depression, unspecified depression type Gastroesophageal reflux disease, unspecified whether esophagitis present documented in this encounter [facility] note* Diagnosis Pleurodynia Painful respiration documented in this encounter [facility] note* Diagnosis Controlled type 2 diabetes mellitus without complication, without long-term current use of insulin (HCC) documented in this encounter [facility] note* Diagnosis Pleuritic chest pain Painful respiration documented in this encounter [facility] note* Diagnosis Cough documented in this encounter [facility] note* Diagnosis Type 2 diabetes mellitus without complication, without long-term current use of insulin ([facility]) ([facility])- Primary BMI 50.0-59.9, adult ([facility]) ([facility]) Class 3 severe obesity with serious comorbidity and body mass index (BMI) of 50.0 to 59.9 in adult, unspecified obesity type ([facility]) documented in this encounter [facility] note* Diagnosis Insomnia, unspecified- Primary documented in this encounter [facility] note* Diagnosis Chronic left shoulder pain- Primary Pain in joint, shoulder region Controlled type 2 diabetes mellitus without complication, without long-term current use of insulin ([facility]) Primary hypertension Unspecified essential hypertension HILDA (obstructive sleep apnea) Obstructive sleep apnea (adult) (pediatric) Chronic bilateral low back pain without sciatica Cervicalgia Class 3 severe obesity due to excess calories without serious comorbidity with body mass index (BMI) of 50.0 to 59.9 in adult ([facility]) Gastroesophageal reflux disease, unspecified whether esophagitis present WATSON (generalized anxiety disorder) Generalized anxiety disorder PTSD (post-traumatic stress disorder) Posttraumatic stress disorder Recurrent major depressive disorder, in remission Tobacco use disorder Vitamin D deficiency Unspecified vitamin D deficiency documented in this encounter [facility] note* Diagnosis Chronic left shoulder pain Pain in joint, shoulder region documented in this encounter [facility] note* Diagnosis Vitamin D deficiency- Primary Unspecified vitamin D deficiency Elevated alkaline phosphatase level Other nonspecific abnormal serum enzyme levels documented in this encounter [facility] Discharge instructions Additional Instructions Hot shower, warm bath of the size to relax the muscles in your back. Use your baclofen as prescribed. Motrin and Tylenol for pain. Follow-up with your doctor if not improving.[facility] Work Phone: Instructions* Name Dates Details Instructions not documented [id number] Work Phone: Reason for referral (narrative)No reason for referral information availableWSalem [facility] Work Phone: Reason for visit Narrative* Diagnostic Procedure Only (Routine) - Closed Specialty Diagnoses / Procedures Referred By Contac t Referred To Contact XR IMAGING Diagnoses Chronic left shoulder pain Procedures XR SHOULDER GENERAL 3V OR MORE AP/TRUE AP/OTHER LEFT RADEX SHOULDER COMPLETE MINIMUM 2 VIEWS Ginny Gomez, PARTS SALVAGER.[employer] SAL[employer] CONSULTANT [address] [place] [id number] Phone: tel: fax: [place] [id number] Referral ID Status Reason Start Date Expiration Date V isits Requested Visits Authorized [id number] Closed Auto-Generate d Referral 12/25/2024 01/24/2026 1 1 [facility] Summary Purpose Family History No Family History Records Found Mother Name Dates Details Family history of multiple s clerosis(V17.2, Z82.0) Status:Active Relationship Condition Age at Onset Recorded Date/T becky mother Hypertension Unknown Cardiac disease Unknown Diabetes mellitus Unknown Multiple sclerosis Unknown Disorder of hemostasis Unknown father Cerebrovascular accident (CVA) Unknown Hypertension Unknown grandmother Cardiac disease Unknown Hypercholesterolemia Unknown grandfather Cardiac disease Unknown Cerebrovascular accident (CVA) Unknown Advance Directives No Advanced Directives Records FoundDocuments on File Type Date Recorded Patient 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 Expl anation ACP-Advance Directive ACP-Power of Torque Tester Latest Code Status on File Code Status Date Activated Date Inactivated Comments Full Code 07/21/2017 8:25 AM 07/21/2017 4:10 PM Documents on File Type Date Recorded Patient 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 Expl 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 ACP-Advance Directive ACP-Power of Torque Tester Latest Code Status on File Code Status Date Activated Date Inactivated Comments Full Code 09/01/2021 11:09 AM Full Code 07/21/2017 8:25 AM 07/21/2017 4:10 PM Advance Directive Response Recorded Date/ Time Living Will No October 11, 2021 10:59pm Power of Torque Tester No October 11 10:59pm Advance Directive Response Recorded Date/ Time Living Will No November 07, 2021 1 0:20am Power of Torque Tester No November 07, 2021 10:20am Latest Code Status on File Code Status Date Activated Date Inactivated Comments Full Code 09/01/2021 11:09 AM 09/01/2021 4:31 PM Advance Directive Response Recorded Date/ Time Living Will No February 25 9:59am Power of Torque Tester No February 25 9:59am Latest Code Status on File Code Status Date Activated Date Inactivated Comments Full Code 09/01/2021 11:09 AM 09/01/2021 4:31 PM Full Code 07/21/2017 8:25 AM 07/21/2017 4:10 PM Advance Directive Response Recorded Date/ Time Living Will No April 08 8:21am Power of Torque Tester No April 08, 2022 8:21am Advance Directive Response Recorded Date/ Time Living Will No April 08 7:21am Power of Torque Tester No April 08, 2022 7:21am Advance Directive Response Recorded Date/ Time Living Will No January 27, 2023 11:15pm Power of Torque Tester No January 27 11:15pm Advance Directive Response Recorded Date/ Time Living Will No March 11, 2023 10:45am Power of Torque Tester No February 10:45am Advance Directive Response Recorded Date/ Time Living Will No March 11, 2023 9:45am Power of Torque Tester No February 9:45am Advance Directive Response Recorded Date/ Time Living Will No August 23, 7:02am Power of Torque Tester No August 23, 2023 7:02am Reason for Referral Status Reason Specialty Diagnoses / Procedures Referred By Contact Referred To Contact Authorized Radiology Diagnoses Epigastric pain Procedures US Abdomen Complete Olive Mccarthy, PARTS SALVAGER - [employer] [address] [place] [address] Specialty Diagnoses / Procedures Referred By Contac t Referred To Contact Cardiology Diagnoses Hypertension, unspecified type Chest pain, unspecified type Procedures Echo Stress Test - Dobutamine Rk Mcclain MD [address] [place] [address] [address] [place] [address] Referral ID Status Reason Start Date Expiration Date Visits Re quested Visits Authorized [id number] Closed 03/27/2022 04/26/2022 1 1 Specialty Diagnoses / Procedures Referred By Contac t Referred To Contact Diagnoses Controlled type 2 diabetes mellitus without complication, without long-term current use of insulin ([facility]) Denis Garcia MD [address] [place] [id number] Referral ID Status Reason Start Date Expiration Date V isits Requested Visits Authorized [id number] Authorized 08/20/2023 08/18/2024 1 1 Specialty Diagnoses / Procedures Referred By Contac t Referred To Contact Diagnoses HILDA (obstructive sleep apnea) Procedures CONSULT TO SLEEP MEDICINE - ADULT OFFICE/OUTPATIENT [facility] 60-74 MINUTES Denis Garcia MD [address] [place] [address] Referral ID Status Reason Start Date Expiration Date V isits Requested Visits Authorized [id number] Closed PCP Requested Referral 01/28/2023 01/28/2024 1 1 Specialty Diagnoses / Procedures Referred By Contac t Referred To Contact Cardiology Diagnoses Pleurodynia Procedures CONSULT TO CARDIOLOGY OFFICE/OUTPATIENT [facility] 60 MINUTES Denis Garcia MD [address] [place] [address] Referral ID Status Reason Start Date Expiration Date Visits Requested Visits Authorized [id number] Authorized PCP Requested Referral 09/03/2023 09/02/2024 1 1 Specialty Diagnoses / Procedures Referred By Contac t Referred To [facility] Diagnoses Pleurodynia Procedures ECG COMPLETE ECG ROUTINE ECG W/LEAST 12 LDS W/I&R Denis Garcia MD [address] [place] [address] [facility] [address] [place] [address] Referral ID Status Reason Start Date Expiration Date Visits Requested Visits Authorized [id number] Pending Review Auto-Generat ed Referral 09/03/2023 09/02/2024 1 1 Referral ID Status Reason Start Date Expiration Date Visits Re quested Visits Authorized [id number] Closed 1 1 Specialty Diagnoses / Procedures Referred By Contac t Referred To Contact Sleep Medicine Diagnoses Insomnia, unspecified Procedures Polysomnography Prai Noyola MD [address] [place] [address] [facility] [address] [place] [address] Referral ID Status Reason Start Date Expiration Date V isits Requested Visits Authorized Pending Review 04/11/2022 10/08/2022 1 1 Assessments Diagnosis Epigastric pain Abdominal pain, epigastric Chief Complaint and Reason for Visit Chief Complaint HEADACHE X1 WEEK BLISTERS ON ABD BACK/ NECK PAIN. PT TO BRING RX abd pain Chief Complaint HEADACHE X1 WEEK BLISTERS ON ABD BACK/ NECK PAIN. PT TO BRING RX abd pain ABD PAIN Chief Complaint abd pain ABD PAIN Lumbar spine xray Reason for Visit Facet syndrome, lumb ar Chief Complaint Lumbar spine xray BACK PAIN Reason for Visit Facet syndrome, lumb ar Chief Complaint BACK PAIN CP Chief Complaint CP Chief Complaint HILDA Chief Complaint HILDA HILDA; BIPAP AUTO *DEVICE TAGGED Chief Complaint HILDA; BIPAP AUTO *DEV ICE TAGGED HYPERGLYCEMIA Chief Complaint SWOLLEN LYMPH NODE R T SIDE Reason for Visit Neck pain on right s meagan Chief Complaint fall Additional Source Comments INFORMATION SOURCE (unrecogn ized section and content) DATE CREATED AUTHOR 12/20/2017 [facility] tem DATE CREATED AUTHOR AUTHOR'S ORGANIZ ATION 12/21/2017 [facility] DATE CREATED AUTHOR AUTHOR'S ORGANIZ ATION 12/21/2017 [facility] DATE CREATED AUTHOR AUTHOR'S ORGANIZ ATION 01/06/2018 [facility] DATE CREATED AUTHOR AUTHOR'S ORGANIZ ATION 06/12/2018 [facility] DATE CREATED AUTHOR AUTHOR'S ORGANIZ ATION 12/05/2021 [facility] DATE CREATED AUTHOR AUTHOR'S ORGANIZ ATION 04/20/2022 [facility] tem DATE CREATED AUTHOR AUTHOR'S ORGANIZ ATION 11/23/2023 [facility] DATE CREATED AUTHOR AUTHOR'S ORGANIZ ATION 01/03/2025 [facility] DATE CREATED AUTHOR AUTHOR'S ORGANIZ ATION 01/28/2025 [facility] Ordered Prescriptions (unrec ognized section and content) Prescription Sig Dispensed Refills Start Date End Da te ibuprofen (ADVIL;MOTRIN) 800 MG tablet Take 1 tablet by mouth 3 times daily as needed for Pain 90 tablet 0 09/01/2021 Scheduled Active and Recently Administ ered Medications (unrecognized section and content) Medication Order 08/30/2021 08/31/2021 09/01/2021 acetaminophen (TYLENOL) tablet 1,000 mg (COMPLETED) 1,000 mg, Oral, ONCE, On Wed09/01/21 at 1030, For 1 dose, Maximum dose of acetaminophen is 4000 mg from all sources in 24 hours. Do not administer if patient has taken tylenol <4 hours earlier. Do not give if contraindicated ie. patient has active liver disease or cirrhosis., Pre-op (day of surgery) 1015 (Given - Provid er: Leonid Almazan RN) famotidine (PEPCID) tablet 20 mg (COMPLETED) 20 mg, Oral, ONCE, On Wed09/01/21 at 1030, For 1 dose, Pre-op (day of surgery) 1015 (Given - Provid er: Leonid Almazan RN) LORazepam (ATIVAN) injection 1 mg (COMPLETED) 1 mg, IntraVENous, ONCE, On Wed09/01/21 at 1315, For 1 dose, PACU only 1254 (Given - Provid er: Maisha Dockery RN)1315 (Due) LORazepam (ATIVAN) injection 1 mg 1 mg, IntraVENous, ONCE, On Wed09/01/21 at 1345, For 1 dose, PACU only 1345 (Due) sodium chloride flush 0.9 % injection 10 mL 10 mL, IntraVENous, EVERY 12 HOURS SCHEDULED (2 times per day), First dose on Wed09/01/21 at 1130, Pre-op (day of surgery) 1130 (Due)2100 (Due) sodium chloride flush 0.9 % injection 5-40 mL 5-40 mL, IntraVENous, EVERY 12 HOURS SCHEDULED (2 times per day), First dose on Wed09/01/21 at 1145, For Line Patency: Peripheral IV = 5 [...] Central Line = 20 mL/lumen, PACU only 1145 (Due)2100 (Due) Continuous Medication Order 08/30/2021 08/31/2021 09/01/2021 0.9 [...] Care Teams (unrecognized sec tion and content) Electrician Research Relationship Specialty Start Date End Date Pari Noyola MD [address] [place] [address] [phone] PCP - General Family Medicine 06/10/15 Electrician Research Relationship Specialty Start Date End Date Pari Noyola MD [address] [place] [address] PCP - General Family Medicine 09/02/21 Electrician Research Relationship Specialty Start Date End Date Pari Noyola MD [address] [place] [address] PCP - General Family Medicine 09/02/21 Electrician Research Relationship Specialty Start Date End Date Pari Noyola MD [address] [place] [address] PCP - General Family Medicine 09/02/21 Team Status: Active Member Role Status Dates PARI AVILA Family Provider Active PARI NOYOLA Primary Care Provider Active Team Status: Inactive Member Role Status Dates JAZMÍN BRIDGES Primary Care Provider Active Dr. Filemon Ortiz DO Attending Provider, Hakeem rosales Active Team Status: Inactive Member Role Status Dates JAZMÍN BRIDGES Primary Care Provider Active Dr. Cas Leavitt MD Attending Provider, Referring Provider Active Electrician Research Relationship Specialty Start Date End Date Denis Garcia MD [address] [place] [address] PCP - General Internal Medicine 08/10/22 Electrician Research Relationship Specialty Start Date End Date Denis Garcia MD [address] [place] [address] PCP - General Internal Medicine 08/10/22 Electrician Research Relationship Specialty Start Date End Date Denis Garcia MD [address] [place] [address] PCP - General Internal Medicine 08/10/22 Electrician Research Relationship Specialty Start Date End Date Denis Garcia MD [address] [place] [address] PCP - General Internal Medicine 08/10/22 Team Status: Active Member Role Status Dates PARI AVILA Family Provider Active Dr. Denis Garcia MD Primary Care Provider Active Team Status: Inactive Member Role Status Dates Dr. Denis Garcia MD Primary Care Provider Active Dr. Cas Leavitt MD Attending Provider, Referring Provider Active Team Status: Inactive Member Role Status Dates Ginny Mcrae TAVERN KEEPER, TAVERN KEEPER-C Attending Provider Active Dr. Denis Garcia MD Primary Care Provider Active Electrician Research Relationship Specialty Start Date End Date Denis Garcia MD [address] [place] [address] PCP - General Internal Medicine 08/10/22 Electrician Research Relationship Specialty Start Date End Date Pari Noyola MD PCP - General 09/02/21 09/02/22 Electrician Research Relationship Specialty Start Date End Date Pari Noyola MD PCP - General 09/02/21 09/02/22 Electrician Research Relationship Specialty Start Date End Date Denis Garcia MD [address] [place] [address] PCP - General Internal Medicine 08/10/22 Electrician Research Relationship Specialty Start Date End Date Denis Garcia MD [address] [place] [address] PCP - General Internal Medicine 08/10/22 Team Status: Inactive Member Role Status Dates Dr. Denis Garcia MD Primary Care Provider Active Ginny Mcrae TAVERN KEEPER, TAVERN KEEPER-C Attending Provider Active Team Status: Inactive Member Role Status Dates Dr. Denis Garcia MD Primary Care Provider Active Dr. Richard Heart MD Emergency Provider Active Electrician Research Relationship Specialty Start Date End Date Denis Garcia MD [address] [place] [address] PCP - General Internal Medicine 08/10/22 Electrician Research Relationship Specialty Start Date End Date Denis Garcia MD [address] [place] [address] PCP - General Internal Medicine 08/10/22 Electrician Research Relationship Specialty Start Date End Date Deins Garcia MD [address] [place] [address] PCP - General Internal Medicine 08/10/22 Electrician Research Relationship Specialty Start Date End Date Denis Garcia [address] [place] [address] PCP - General Internal Medicine 03/10/23 Team Status: Inactive Member Role Status Dates Dr. Denis Garcia MD Primary Care Provider Active Dr. Richard Heart MD Attending Provider, Emergency Provider Active Electrician Research Relationship Specialty Start Date End Date Denis Garcia MD [address] [place] [address] PCP - General Internal Medicine 08/10/22 Electrician Research Relationship Specialty Start Date End Date Denis Garcia MD [address] [place] [address] PCP - General Internal Medicine 08/10/22 Team Status: Inactive Member Role Status Dates Dr. Denis Garcia MD Primary Care Provider, Refer ring Provider Active KONSTANTIN Benitez Attending Provider Active Electrician Research Relationship Specialty Start Date End Date Denis Garcia [address] [place] [address] PCP - General Internal Medicine 03/10/23 Electrician Research Relationship Specialty Start Date End Date Denis Garcia MD [address] [place] [address] PCP - General Internal Medicine 08/10/22 Team Status: Inactive Member Role Status Dates Dr. Denis Garcia MD Primary Care Provider Active Dr. Filemon Ortiz DO Emergency Provider Active Electrician Research Relationship Specialty Start Date End Date Denis Garcia MD [address] [place] [address] PCP - General Internal Medicine 08/10/22 Electrician Research Relationship Specialty Start Date End Date Denis Garcia MD [address] [place] [address] PCP - General Internal Medicine 08/10/22 Electrician Research Relationship Specialty Start Date End Date Denis Garcia MD [address] [place] [address] PCP - General Internal Medicine 08/10/22 Electrician Research Relationship Specialty Start Date End Date Denis Garcia MD [address] [place] [address] PCP - General Internal Medicine 08/10/22 Electrician Research Relationship Specialty Start Date End Date Denis Garcia MD [address] [place] [address] PCP - General Internal Medicine 08/10/22 Electrician Research Relationship Specialty Start Date End Date Denis Garcia MD [address] [facility], [place] [id number] PCP - General Internal Medicine 08/10/22 Electrician Research Relationship Specialty Start Date End Date Denis Garcia MD [address] [facility], [place] [id number] PCP - General Internal Medicine 08/10/22 Electrician Research Relationship Specialty Start Date End Date Pari Noyola MD PCP - General Family Medicine 05/17/17 08/09/22 Electrician Research Relationship Specialty Start Date End Date Pari Noyola MD [employer] [place] [phone] PCP - General 09/02/21 Electrician Research Relationship Specialty Start Date End Date Pari Noyola MD [address] [place] [address] [phone] PCP - General 09/02/21 Electrician Research Relationship Specialty [place] [address] [place] [address] [phone] PCP - General 09/02/21 Team Status: Active Member Role Status Dates Dr. Denis Garcia MD Primary Care Provider Active Team Status: Inactive Member Role Status Dates Dr. Denis Garcia MD Primary Care Provider Active Start: August 14, 2024 End: August 14, 2024 Dr. Cas Leavitt MD Attending Provider Active Start: August 14, 2024 End: August 14, 2024 Dr. Cas Leavitt MD Referring Provider Active Start: August 14, 2024 End: August 14, 2024 Team Status: Inactive Member Role Status Dates Dr. Denis Garcia MD Primary Care Provider Active Start: October 09, 2024 End: October 09, 2024 TAVERN KEEPER. Irma Yu Attending Provider Active Star t: October 09, 2024 End: October 09, 2024 TAVERN KEEPER. Irma Yu Referring Provider Active Star t: October 09, 2024 End: October 09, 2024 Team Status: Inactive Member Role Status Dates Dr. Denis Garcia MD Primary Care Provider Active Start: November 13, 2024 End: November 13, 2024 Dr. Cas Leavitt MD Attending Provider Active Start: November 13, 2024 End: November 13, 2024 Dr. Cas Leavitt MD Referring Provider Active Start: November 13, 2024 End: November 13, 2024 Electrician Research Relationship Specialty Start Date End Date Denis Garcia MD [address] [place], [place] [phone] PCP - General Internal Medicine 08/10/22 Ginny Gomez, PARTS SALVAGER.[employer]RO[employer] SALES CONSULTANT [address], [place] [phone] [employer] Associate Internal Medicine 06/05/24 Electrician Research Relationship Specialty Start Date End Date Denis Garcia MD [address] [place] [address] PCP - General Internal Medicine 08/10/22 Ginny Gomez, PARTS SALVAGER.SHOWROOM SALES CONSULTANT [address], [place] [address] [employer] Associate Internal Medicine 06/05/24 Electrician Research Relationship Specialty Start Date End Date Denis Garcia MD [address], [place] [address] PCP - General Internal Medicine 08/10/22 Ginny Gomez, PARTS SALVAGER.SHOWROOM SALES CONSULTANT [address], [place] [id number] [facility] Internal [facility] 06/05/24 Electrician Research Relationship Specialty Start Date End Date Denis Garcia MD [address], [place] [phone] PCP - General Internal Medicine 08/10/22 Ginny Gomez, PARTS SALVAGER.SHOWROOM SALES CONSULTANT [address], [place] [phone] [facility] Internal [facility] 06/05/24 Goals (unrecognized section and content) Goals may be documented in a n alternate sectionGoals may be documented in an alternate sectionGoals may be documented in an alternate section Source Comments (unrecognize d section and content) In the event this informatio n is protected by the Federal Confidentiality of Alcohol and Drug Abuse Patient Records regulations: The Federal rules restrict any use of the information to criminally investigate or prosecute any alcohol or drug abuse patient.[facility] the event this information is protected by the Federal Confidentiality of Alcohol and Drug Abuse Patient Records regulations: The Federal rules restrict any use of the information to criminally investigate or prosecute any alcohol or drug abuse patient.[facility]In the event this information is protected by the Federal Confidentiality of Alcohol and Drug Abuse Patient Records regulations: The Federal rules restrict any use of the information to criminally investigate or prosecute any alcohol or drug abuse patient.[facility] the event this information is protected by the Federal Confidentiality of Alcohol and Drug Abuse Patient Records regulations: The Federal rules restrict any use of the information to criminally investigate or prosecute any alcohol or drug abuse patient.[facility]In the event this information is protected by the Federal Confidentiality of Alcohol and Drug Abuse Patient Records regulations: The Federal rules restrict any use of the information to criminally investigate or prosecute any alcohol or drug abuse patient.[facility]In the event this information is protected by the Federal Confidentiality of Alcohol and Drug Abuse Patient Records regulations: The Federal rules restrict any use of the information to criminally investigate or prosecute any alcohol or drug abuse patient.[facility] HospitalIn the event this information is protected by the Federal Confidentiality of Alcohol and Drug Abuse Patient Records regulations: The Federal rules restrict any use of the information to criminally investigate or prosecute any alcohol or drug abuse patient.[facility] HospitalIn the event this information is protected by the Federal Confidentiality of Alcohol and Drug Abuse Patient Records regulations: The Federal rules restrict any use of the information to criminally investigate or prosecute any alcohol or drug abuse patient.[facility] HospitalIn the event this information is protected by the Federal Confidentiality of Alcohol and Drug Abuse Patient Records regulations: The Federal rules restrict any use of the information to criminally investigate or prosecute any alcohol or drug abuse patient.[facility]In the event this information is protected by the Federal Confidentiality of Alcohol and Drug Abuse Patient Records regulations: The Federal rules restrict any use of the information to criminally investigate or prosecute any alcohol or drug abuse patient.[facility] HospitalIn the event this information is protected by the Federal Confidentiality of Alcohol and Drug Abuse Patient Records regulations: The Federal rules restrict any use of the information to criminally investigate or prosecute any alcohol or drug abuse patient.[facility] HospitalIn the event this information is protected by the Federal Confidentiality of Alcohol and Drug Abuse Patient Records regulations: The Federal rules restrict any use of the information to criminally investigate or prosecute any alcohol or drug abuse patient.[facility] HospitalIn the event this information is protected by the Federal Confidentiality of Alcohol and Drug Abuse Patient Records regulations: The Federal rules restrict any use of the information to criminally investigate or prosecute any alcohol or drug abuse patient.[facility] HospitalIn the event this information is protected by the Federal Confidentiality of Alcohol and Drug Abuse Patient Records regulations: The Federal rules restrict any use of the information to criminally investigate or prosecute any alcohol or drug abuse patient.[facility] HospitalIn the event this information is protected by the Federal Confidentiality of Alcohol and Drug Abuse Patient Records regulations: The Federal rules restrict any use of the information to criminally investigate or prosecute any alcohol or drug abuse patient.[facility] HospitalIn the event this information is protected by the Federal Confidentiality of Alcohol and Drug Abuse Patient Records regulations: The Federal rules restrict any use of the information to criminally investigate or prosecute any alcohol or drug abuse patient.[facility] HospitalIn the event this information is protected by the Federal Confidentiality of Alcohol and Drug Abuse Patient Records regulations: The Federal rules restrict any use of the information to criminally investigate or prosecute any alcohol or drug abuse patient.[facility] HospitalIn the event this information is protected by the Federal Confidentiality of Alcohol and Drug Abuse Patient Records regulations: The Federal rules restrict any use of the information to criminally investigate or prosecute any alcohol or drug abuse patient.[facility] HospitalIn the event this information is protected by the Federal Confidentiality of Alcohol and Drug Abuse Patient Records regulations: The Federal rules restrict any use of the information to criminally investigate or prosecute any alcohol or drug abuse patient.[facility] HospitalIn the event this information is protected by the Federal Confidentiality of Alcohol and Drug Abuse Patient Records regulations: The Federal rules restrict any use of the information to criminally investigate or prosecute any alcohol or drug abuse patient.[facility] HospitalIn the event this information is protected by the Federal Confidentiality of Alcohol and Drug Abuse Patient Records regulations: The Federal rules restrict any use of the information to criminally investigate or prosecute any alcohol or drug abuse patient.[facility] HospitalIn the event this information is protected by the Federal Confidentiality of Alcohol and Drug Abuse Patient Records regulations: The Federal rules restrict any use of the information to criminally investigate or prosecute any alcohol or drug abuse patient.[facility] HospitalIn the event this information is protected by the Federal Confidentiality of Alcohol and Drug Abuse Patient Records regulations: The Federal rules restrict any use of the information to criminally investigate or prosecute any alcohol or drug abuse patient.[facility] HospitalIn the event this information is protected by the Federal Confidentiality of Alcohol and Drug Abuse Patient Records regulations: The Federal rules restrict any use of the information to criminally investigate or prosecute any alcohol or drug abuse patient.[facility] HospitalIn the event this information is protected by the Federal Confidentiality of Alcohol and Drug Abuse Patient Records regulations: The Federal rules restrict any use of the information to criminally investigate or prosecute any alcohol or drug abuse patient.[facility] HospitalIn the event this information is protected by the Federal Confidentiality of Alcohol and Drug Abuse Patient Records regulations: The Federal rules restrict any use of the information to criminally investigate or prosecute any alcohol or drug abuse patient.[facility] HospitalIn the event this information is protected by the Federal Confidentiality of Alcohol and Drug Abuse Patient Records regulations: The Federal rules restrict any use of the information to criminally investigate or prosecute any alcohol or drug abuse patient.[facility] HospitalIn the event this information is protected by the Federal Confidentiality of Alcohol and Drug Abuse Patient Records regulations: The Federal rules restrict any use of the information to criminally investigate or prosecute any alcohol or drug abuse patient.[facility] HospitalIn the event this information is protected by the Federal Confidentiality of Alcohol and Drug Abuse Patient Records regulations: The Federal rules restrict any use of the information to criminally investigate or prosecute any alcohol or drug abuse patient.[facility] HospitalIn the event this information is protected by the Federal Confidentiality of Alcohol and Drug Abuse Patient Records regulations: The Federal rules restrict any use of the information to criminally investigate or prosecute any alcohol or drug abuse patient.[facility] Reason for Visit (unrecogniz ed section and content) Reason Comments Establish Care Reason Comments Appointment Reason Comments Medication Problem [...] Specialty Diagnoses / Procedures Referred By River t Referred To Contact Diagnoses HILDA (obstructive sleep apnea) Procedures CONSULT TO SLEEP MEDICINE - ADULT OFFICE/OUTPATIENT [facility] MDM 60-74 MINUTES Denis Garcia MD [address] [place] [address] Referral ID Status Reason Start Date Expiration Date V isits Requested Visits Authorized [id number] Closed PCP Requested Referral 01/28/2023 01/28/2024 1 1 Reason Comments Follow Up Reason Comments Insurance Authorization Reason Comments Med Change Request Reason Comments bi-pap issue Reason Comments F/U 6 Month Reason Comments Migraine Reason Comments Hypertension Reason Comments Rx Refills C/o BP problems Reason Onset Date Comments Refill Request 03/15/2024 Reason Comments Weight Loss NSURG #6 Reason Onset Date Comments Medication Concern 08/11/2022 Reason Comments Physical Arm Pain Left x 4 months- pos t fall FOR RECORDS PERTAINING TO PATIENTS WHO ARE [...] BE BASED ON THE PRIMARY CLINICAL RECORDS. [facility] [employer] [facility]. provides no warranty or guarantee of the accuracy or completeness of information in this document.
[2025-01-29 07:33] LABS: Internal QC Validated? YES +Cl - CLEAR BKGD; Pregnancy, Urine Negative Negative; Record Kit Lot#,Urine Preg 0000962302
[2025-01-29] MEDS: Lactated Ringers 1,000 ML 15 ML IV (07:35)
[2025-01-29 07:36] VITALS: BP 144/104; PULSE 95; RESP 16; TEMP 36.6; O2SAT 100; BMI 56.3
--- NOTE | 2025-01-29 07:36 | PCM.PRE.AN2 ---
ASA Classification* ASA Classification ASA Classification: 3 Assessment & Plan Anesthesia* Anesthesia Assessment Anesthesia Assessment: Discussed sedation and/or anesthesia options, risks, benefits, and alternatives with patient/parents/legal guardian/POA. Questions invited. The patient/parents/legal guardian/POA seems to understand and agrees to proceed with anesthesia plan. Reviewed the physical assessment, medical history, allergy history and patient home medications list prior to surgery/procedure/anesthetic and documented any changes. Performed airway and anesthesia risk assessments. Anesthesia Type Anesthesia Type: MAC Anesthesia Focused Assessment* Airway Assessment Mouth opens: >3 cm Mallampati Score: II Labs Anesthesia Preop lab: CBC WBC 17.0 K/mm3 (4.4-11.0) H 02/27/24:02/27/24 RBC 5.43 M/mm3 (4.2-5.4) H 02/27/24:02/27/24 Hgb 16.4 g/dL (12.0-15.0) H 02/27/24:02/27/24 Hct 48.1 % (37-47) H 02/27/24 01:02/27/24 Plt Count 468 K/mm3 (150-450) H 02/27/24 01:02/27/24 CHEMISTRY Potassium 3.4 mmol/L (3.5-5.1) L 02/27/24 01:02/27/24 Sodium 138 mmol/L (136-145) 02/27/24 01:02/27/24 BUN 9 mg/dL (7-18) 02/27/24 01:02/27/24 Creatinine 0.67 mg/dL (0.55-1.02) 02/27/24 01:02/27/24 Glucose 224 mg/dL (74-106) H 02/27/24 01:02/27/24 POC Glucose 168 mg/dL (74-106) H 11/13/24 08:40 11/13/24 TSH 2.34 uIU/mL (0.358-3.74) 01/23/20 09:48 01/23/20 COAG Urine Test Negative Negative 08/14/24 06:54 08/14/24 Pre-Assessment Diagnosis/Proposed Procedure Planned Operative Procedure(s): (L) Block, Medial Branch Nerve, Cervical Anesthesia History 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 When Was Last Pacemaker Check QUESTION #4 FULL TEXT: You/Your Family Experience fever (hyperthermia) with Anesthesia Last Oral Intake Last Oral intake: Last Oral Intake NPO since Meds taken in AM with sips of water? 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 Female Yes 01/22/25 10:41 HX of Motion Sickness No 01/22/25 10:41 HX of N/V After Surgery No 01/22/25 10:41 Non-Smoker No 01/22/25 10:41 Duration of Surgery greater No 01/22/25 10:41 than 60 minutes Number of Risk Factors 1 01/22/25 10:41 PONV Score Low Risk 01/22/25 10:41 Height & Weight Height & Weight: Anesthesia: Height & Weight Height 5 ft 5 in 11/13/24 08:42 Respiratory Assessment Respiratory Assessment - leather belt shaper: Respiratory Tract Infection Hx - leather belt shaper Hx Respiratory Tract Infection No 01/22/25 10:41 STOP Sleep Apnea STOP Sleep Apnea - leather belt shaper: STOP Sleep Apnea - leather belt shaper Hx Hypertension Yes: on meds 01/22/25 10:41 Hx Sleep Apnea Yes 01/22/25 10:41 CPAP No 01/22/25 10:41 BIPAP Yes: non compliant 01/22/25 10:41 Do you snore loudly (louder than talking or can be heard Do you often feel tired/ fatigued/ sleepy during daytime? Has anyone observed you stop breathing during sleep? STOP Results Positive 01/22/25 10:41 QUESTION #5 FULL TEXT : Do you snore loudly (louder than talking or can be heard through closed doors)? Tobacco Use History Tobacco Use History - leather belt shaper: Tobacco Use History - leather belt shaper Tobacco Use Smoking Status Light Smoker (<10/day) 01/22/25 10:41 Hx Tobacco Use Yes 01/22/25 10:41 Years Smoking Packs Smoked per Day 0.5 01/22/25 10:41 Smoking Cessation Date was within the last 15 years Hx Smoking Cessation Date Hx Smoking Cessation No 01/22/25 10:41 Counseling Hematologic Medial History Hematologic Hx - leather belt shaper: Hematologic Medical Hx - pipe line walker Hx of Blood Transfusion No 01/22/25 10:41 Hx of Transfusion in last 3 No 01/22/25 10:41 Months Date of Last Transfusion (if within last 3 months) Ever experience any problems No 01/22/25 10:41 with transfusion(s)? Specify any problems Hx of Preganancy in last 3 No 01/22/25 10:41 Months Nurse Filling Out Transfusion JZOLLWESTLEY 01/22/25 10:41 & Questions: Date: 01/22/25 01/22/25 10:41 Time: 10:45 01/22/25 10:41 Patient unable to answer at this time (ie. confused, unrespo /Reproduction History /Reproductive History - leather belt shaper: /Reproductive Hx- leather belt shaper Hx Now No 01/22/25 10:41 Gestational Age (in weeks): EDC: Hx Hx Para Hx Section SAB No 01/22/25 10:41 Active Medications Active Medications: Current Medications Generic Name Dose Route Start Last Admin Trade Name Freq PRN Reason Stop Dose Admin Lactated Ringer's 1,000 mls @ 15 mls/hr 01/29/25 07:45 01/29/25 07:35 IV 15 mls/hr .Q48H ADRIANA Administration PFSH Medical History Pre-op testing Blood disorder Bipolar disorder History of steroid therapy High cholesterol Sleep apnea History of echocardiogram History of stress test Pleurodynia Fibromyalgia Wears glasses OCD (obsessive compulsive disorder) PTSD (post-traumatic stress disorder) Depression Marijuana use Back pain Dietary restriction Gastric reflux Smoker BiPAP (biphasic positive airway pressure) dependence Shortness of breath on exertion Leg cramps History of pain when walking History of edema Cardiology follow-up encounter Hypertension Chest pain Anxiety Ulnar nerve entrapment Chronic neck and back pain Balance problem Fatigue Diabetes Home Medications ?Medication ?Instructions ?Recorded ?Last Taken ?Type lisinopril 10 mg tablet 10 mg PO DAILY 02/21/21 08/13/24 History pantoprazole 20 mg tablet,delayed 40 mg PO DAILY 03/02/21 08/13/24 History release (Protonix) dapagliflozin propanediol 5 mg 10 mg PO DAILY 07/23/21 08/13/24 History tablet (Farxiga) aripiprazole 10 mg tablet 20 mg PO DAILY 01/27/23 08/13/24 History hydrocodone-acetaminophen 5-325mg 1 tab PO BID PRN PRN Pain 03/11/23 08/13/24 History 5mg-325mg rosuvastatin 20 mg tablet 20 mg PO DAILY 03/11/23 08/13/24 History glipizide 5 mg tablet 10 mg PO DAILY 09/13/23 08/13/24 History metoprolol succinate 25 mg 25 mg PO DAILY 06/08/24 08/13/24 History tablet,extended release 24 hr baclofen 10 mg tablet 10 mg PO TID PRN PRN muscle spasm 01/22/25 Unknown History Allergy/AdvReac Type Severity Reaction Status Date / Time adhesive tape Allergy BLISTERS Verified 01/22/25 10:22 gabapentin Allergy not alert Verified 01/22/25 10:22 amitriptyline AdvReac NEEDS Verified 01/22/25 10:22 FOLLOW-UP duloxetine (From Cymbalta) AdvReac NEEDS Verified 01/22/25 10:22 FOLLOW-UP mirtazapine (From Remeron) AdvReac NEEDS Verified 01/22/25 10:22 FOLLOW-UP Family History Mother Hypertension Heart disease Diabetes Multiple sclerosis Clotting disorder Father CVA (cerebral vascular accident) Hypertension Heart disease Grandmother Heart disease Diabetes Hypercholesterolemia Grandfather Heart disease CVA (cerebral vascular accident) Surgical History Hx of dilation and curettage Hx of cholecystectomy History of tonsillectomy History of appendectomy Social History Smoking Status: Light Smoker (<10/day) Review of Systems (Anesthesia) ROS Narrative System reviewed and no additional complaints, except as documented.
--- NOTE | 2025-01-29 08:19 | RAD_ITS ---
PROCEDURE: Medial epidural medial branch nerve cervical steroid injection. 01/29/2025 REASON FOR EXAM: BLOCK, MEDIAL BRANCH NERVE, CERVICAL TECHNIQUE: Intraoperative fluoroscopic services provided for left multilevel nerve root injection. Radiation dose: 11.9 seconds of fluoroscopy. 5.5 mGy. 4 images were submitted. COMPARISON: None FINDINGS: Intraoperative fluoroscopic services provided left cervical nerve root steroid injection. RAD/Spine 1 View Any Level IMPRESSION: Intraoperative fluoroscopic services provided for left cervical nerve root ster oid injection. Reading Location: [id number]
--- NOTE | 2025-01-29 08:38 | OP.PCM_ITS ---
Operative Report (Standard) Operative Information Date of Procedure: 01/29/25 Pre-Operative Diagnosis: Cervical spondylosis, cervical degenerative disc disease, cervical facet arthropathy Post-Operative Diagnosis: Cervical spondylosis, cervical degenerative disc disease, cervical facet arthropathy Surgery/Procedure Performed: Left-sided cervical medial branch block C4 C5-C6-C7 slide fasteners inspector: No Type of Anesthesia: Local MAC RN Documented Start/Stop Times: Operation Date: 01/29/25 08:30 Case Time Into Pre-Op 01/29/25 07:19 Out of Pre-Op 01/29/25 08:12 Anesthesia Start 01/29/25 08:22 Into Room 01/29/25 08:22 Procedure Start 01/29/25 08:28 Procedure End 01/29/25 08:35 Anesthesia End 01/29/25 08:37 Out of Room 01/29/25 08:37 Procedure Start Time: 08:38 Procedure Stop Time: 08:38 Select all DRAINS/GRAFTS/IMPLANTS that apply: None Estimated Blood Loss: 1 Specimen collected: No Description of surgery: ANESTHESIA: MAC. BLOOD LOSS: Minimal. COMPLICATIONS: None. DESCRIPTION OF PROCEDURE: History and physical of today was reviewed. Risks and benefits of the procedure were explained. The patient understood and agreed to proceed. Informed consent was obtained. IV inserted per routine protocol. The patient was taken to the operating room and placed in the prone position with a pillow positioned underneath the chest. The neck area was prepped and draped in a sterile fashion using iodine x3. Under fluoroscopy guidance on an AP view, the C4 through C7 vertebral bodies were visualized at approximately 10- degree angle, starting on the left C4, ending on the left C7, passing through the C5 and C6. Using a 25-gauge 3-1/2-inch spinal needle, the needle was advanced via the skin. The tip of the needle was maneuvered and directed towards the epiphyseal junction of each corresponding vertebra. Once the tip of the needle was at the vicinity of the medial branch, the needle was pulled approximately 2 mm off the bone. After negative aspiration of blood or CSF and confirmation on AP, oblique as well as lateral view, a total of 4 mL of preservative-free 0.25% Marcaine with 80 mg of Depo-Medrol was injected in divided doses between those four levels. The needles were then removed intact. The patient experienced no sign or symptoms of intrathecal or intravascular injection. The patient experienced no paresthesia. The procedure was completed without any apparent difficulty or any complications. The patient appeared to tolerate it well. ASSESSMENT AND PLAN: This is a 40-year-old female with cervical spondylosis, cervical degenerative disc disease, cervical facet arthropathy status post left-sided cervical medial branch blocks C4-C7, patient will continue current medications, patient will follow-up in 1 week for reevaluation. Surgical Findings: 0 Complications Complications: No Admit VTE Documentation VTE Present on Admission: No VTE Mechan Device Prophylaxis: None VTE Pharm Prophylaxis ordered?: No
[2025-01-29 08:40] VITALS: BP 127/94; BP 144/104; PULSE 98; RESP 18; TEMP 36.6; O2SAT 98
[2025-01-29 08:45] VITALS: BP 133/91; BP 144/104; PULSE 97; RESP 16; O2SAT 97
[2025-01-29 08:50] VITALS: BP 130/91; BP 144/104; PULSE 93; RESP 16; TEMP 36.5; O2SAT 98
[2025-01-29 09:09] VITALS: BP 144/104
--- NOTE | 2025-01-29 12:45 | PCM.POST.ANE ---
Anesthesia: Postop Eval I Current Vital Signs Temperature: 97.7 F Pulse Rate: 93 Blood Pressure: 130/91 Respiratory Rate: 16 Pulse Ox: 98 Oxygen Delivery Method: Room Air Assessment Airway patent: Yes Spontaneous unlabored respirations: Yes Mental status: Awake nausea: No Vomiting: No Anesthesia Complication: No Fluid Hydration Crystalloid volume administer (ml): 200 Total IV fluid infused: 200 Progress Note Anesthesia document: Postop Eval 1 completed: Yes
[2025-01-29 12:51] VITALS: BP 130/91; PULSE 93; RESP 16; TEMP 36.5; O2SAT 98
== END 2025-01-29 09:14 | disposition home or self-care (01) ==
LOC: SDC 06:58 → AC 07:00
PROVIDERS: Anesthesiology; PCP Internal Medicine; Referring Provider Anesthesiology Pain Medicine; Visit Provider Anesthesiology Pain Medicine
PROC: 3E0S3BZ Introduction of Anesthetic Agent into Epidural Space, Percutaneous Approach (ICD-10-PCS; CPT 62322; principal; 2025-01-29 08:25)
DX: M47.812 Spondylosis without myelopathy or radiculopathy, cervical region (principal); F31.9 Bipolar disorder, unspecified; E11.9 Type 2 diabetes mellitus without complications; M50.30 Other cervical disc degeneration, unspecified cervical region; M46.92 Unspecified inflammatory spondylopathy, cervical region; I10 Essential (primary) hypertension; F43.10 Post-traumatic stress disorder, unspecified; K21.9 Gastro-esophageal reflux disease without esophagitis; F41.9 Anxiety disorder, unspecified; F42.9 Obsessive-compulsive disorder, unspecified; E78.00 Pure hypercholesterolemia, unspecified; M79.7 Fibromyalgia; G89.29 Other chronic pain; G47.30 Sleep apnea, unspecified; F17.200 Nicotine dependence, unspecified, uncomplicated; Z79.84 Long term (current) use of oral hypoglycemic drugs; Z79.899 Other long term (current) drug therapy; Z90.49 Acquired absence of other specified parts of digestive tract
CPT/HCPCS: 64491; 64492; 01992; 64490; 72020; 81025; 82962

== ENCOUNTER 2025-04-02 09:36 | Day surgery (SDC) | payer MEDICAID, SELFPAY ==
[2025-04-02] VITALS (9 sets, daily range): BP systolic 108–164; BP diastolic 73–110; PULSE 79–104; RESP 16–22; TEMP 36.3–36.8; O2SAT 96–98; BMI 54.9
[2025-04-02] MEDS: Lactated Ringers 1,000 ML 15 ML IV (09:51)
--- NOTE | 2025-04-02 10:06 | PRE.ANES_ITS ---
ASA Classification* ASA Classification ASA Classification: 3 Assessment & Plan Anesthesia* Anesthesia Assessment Anesthesia Assessment: Discussed sedation and/or anesthesia options, risks, benefits, and alternatives with patient/parents/legal guardian/POA. Questions invited. The patient/parents/legal guardian/POA seems to understand and agrees to proceed with anesthesia plan. Reviewed the physical assessment, medical history, allergy history and patient home medications list prior to surgery/procedure/anesthetic and documented any changes. Performed airway and anesthesia risk assessments. Anesthesia Type Anesthesia Type: MAC History Source History Obtained from:: Patient and Chart Anesthesia Focused Assessment* Temperature: 97.7 F Pulse Rate: 101 Blood Pressure: 164/110 Respiratory Rate: 16 Pulse Ox: 98 Oxygen Delivery Method: Room Air Airway Assessment Mouth opens: >3 cm Mallampati Score: I Teeth Condition: Missing (Patient is missing a right lower molar. Rest are tight.) Neck Range of motion (ROM): Limited ROM (Somewhat Decreased) Labs Anesthesia Preop lab: CBC WBC, (4.4-11.0) 17.0 K/mm3 H 02/27/24, : RBC, (4.2-5.4) 5.43 M/mm3 H 02/27/24, 01:33 Hgb, (12.0-15.0) 16.4 g/dL H 02/27/24, :33 Hct, (37-47) 48.1 % H 02/27/24, 01:33 Plt Count, (150-450) 468 K/mm3 H 02/27/24, 01:33 CHEMISTRY Potassium, (3.5-5.1) 3.4 mmol/L L 02/27/24, :33 Sodium, (136-145) 138 mmol/L 02/27/24, 01:33 BUN, (7-18) 9 mg/dL 02/27/24, :33 Creatinine, (0.55-1.02) 0.67 mg/dL 02/27/24, :33 Glucose, (74-106) 224 mg/dL H 02/27/24, 01:33 POC Glucose, (74-106) 211 mg/dL H 01/29/25, 07:18 TSH, (0.358-3.74) 2.34 uIU/mL 01/23/20, 09:48 COAG Urine Test Negative Negative 01/29/25, 07:21 Pre-Assessment Diagnosis/Proposed Procedure Planned Operative Procedure(s): LEFT CERVICAL MEDIAL BRANCH BLOCK AT C4,C5,C6,C7 Anesthesia History Anesthesia History - application development project manager: Anesthesia History - application development project manager Hx Hospitalization No 03/27/25 11:04 Any Problems With Anesthesia No 03/27/25 11:04 Cholinesterase deficiency No 03/27/25 11:04 You/Your Family Experience No 03/27/25 11:04 fever (hyperthermia) with Relationship Recent Exposure to Contagious No 04/02/25 09:52 Disease Does patient have nerve No 03/27/25 11:04 stimulator Patient instructed to have device shut off --Does patient have Pacemaker No 04/02/25 09:52 or ICD? When Was Last Pacemaker Check QUESTION #4 FULL TEXT: You/Your Family Experience fever (hyperthermia) with Anesthesia Last Oral Intake Last Oral intake: Last Oral Intake NPO since 08:00 04/02/25 09:52 Meds taken in AM with sips of Yes 04/02/25 09:52 water? Meds patient instructed to take am of surgery Any additional information?: Yes NPO since: 08:00 (Patient had of some water with her meds at 8:00am) Meds taken in AM with sips of water?: Yes PONV PONV - application development project manager: PONV - application development project manager Female Yes 03/27/25 11:04 HX of Motion Sickness No 03/27/25 11:04 HX of N/V After Surgery No 03/27/25 11:04 Non-Smoker No 03/27/25 11:04 Duration of Surgery greater No 03/27/25 11:04 than 60 minutes Number of Risk Factors 1 03/27/25 11:04 PONV Score Low Risk 03/27/25 11:04 Height & Weight Height & Weight: Anesthesia: Height & Weight Height 5 ft 4.17 in 04/02/25 09:52 Weight: 146 kg 04/02/25 09:52 Body Mass Index (BMI) 54.9 04/02/25 09:52 Respiratory Assessment Respiratory Assessment - application development project manager: Respiratory Tract Infection Hx - application development project manager Hx Respiratory Tract Infection No 03/27/25 11:04 STOP Sleep Apnea STOP Sleep Apnea - application development project manager: STOP Sleep Apnea - application development project manager Hx Hypertension Yes: CONTROLLED ON MEDS 03/27/25 11:04 Hx Sleep Apnea Yes 03/27/25 11:04 CPAP No 03/27/25 11:04 BIPAP Yes: non compliant 03/27/25 11:04 Do you snore loudly (louder than talking or can be heard Do you often feel tired/ fatigued/ sleepy during daytime? Has anyone observed you stop breathing during sleep? STOP Results Positive 03/27/25 11:04 QUESTION #5 FULL TEXT : Do you snore loudly (louder than talking or can be heard through closed doors)? Tobacco Use History Tobacco Use History - application development project manager: Tobacco Use History - application development project manager Tobacco Use Smoking Status Current every day smoker 03/27/25 11:04 Hx Tobacco Use Yes 03/27/25 11:04 Years Smoking Packs Smoked per Day Smoking Cessation Date was within the last 15 years Hx Smoking Cessation Date Hx Smoking Cessation No 03/27/25 11:04 Counseling Any additional information?: Yes Smoking Status: Current every day smoker (Patient smoked today.) Hematologic Medial History Hematologic Hx - application development project manager: Hematologic Medical Hx - manager documentation Hx of Blood Transfusion No 03/27/25 11:04 Hx of Transfusion in last 3 No 03/27/25 11:04 Months Date of Last Transfusion (if within last 3 months) Ever experience any problems No 03/27/25 11:04 with transfusion(s)? Specify any problems Hx of Preganancy in last 3 No 03/27/25 11:04 Months Nurse Filling Out Transfusion DSCHRIBER 03/27/25 11:04 & Questions: Date: 03/27/25 03/27/25 11:04 Time: 11:08 03/27/25 11:04 Patient unable to answer at this time (ie. confused, unrespo /Reproduction History /Reproductive History - application development project manager: /Reproductive Hx- application development project manager Hx Now No 03/27/25 11:04 Gestational Age (in weeks): EDC: Hx Hx Para Hx Section SAB No 03/27/25 11:04 Active Medications Active Medications: Current Medications Generic Name Dose Route Start Last Admin Trade Name Freq PRN Reason Stop Dose Admin Lactated Ringer's 1,000 mls @ 15 mls/hr 04/02/25 09:45 10/06/25 09:51 IV 15 mls/hr .Q48H ADRIANA Administration PFSH Medical History Bipolar disorder High cholesterol History of echocardiogram History of stress test Pleurodynia Fibromyalgia Wears glasses OCD (obsessive compulsive disorder) PTSD (post-traumatic stress disorder) Depression Marijuana use Back pain Dietary restriction Gastric reflux Smoker BiPAP (biphasic positive airway pressure) dependence Shortness of breath on exertion Leg cramps History of pain when walking History of edema Cardiology follow-up encounter Hypertension Anxiety Ulnar nerve entrapment Chronic neck and back pain Balance problem Fatigue Diabetes Home Medications ?Medication ?Instructions ?Recorded ?Last Taken ?Type lisinopril 10 mg tablet 10 mg PO DAILY 02/21/2107/29 History pantoprazole 20 mg tablet,delayed 40 mg PO DAILY 03/0204/02/25 08:00 History release (Protonix) dapagliflozin propanediol 5 mg 10 mg PO DAILY 07/23/21 01/24/25 History tablet (Farxiga) aripiprazole 10 mg tablet 20 mg PO DAILY 01/27/2307/29 History hydrocodone-acetaminophen 5-325mg 1 tab PO BID PRN PRN Pain 03/11/23 08/13/24 History 5mg-325mg rosuvastatin 20 mg tablet 20 mg PO DAILY 03/11/2307/29 History glipizide 5 mg tablet 10 mg PO DAILY 09/13/2307/29 History metoprolol succinate 25 mg 25 mg PO DAILY 06/08/2412/20 08:00 History tablet,extended release 24 hr tizanidine 4 mg tablet 4 mg PO TID PRN PRN muscle s pasm 03/27/25 Unknown History Allergy/AdvReac Type Severity Reaction Status Date / Time adhesive tape Allergy BLISTERS Verified 04/02/25 09:50 gabapentin Allergy not alert Verified 04/02/25 09:50 amitriptyline AdvReac NEEDS Verified 04/02/25 09:50 FOLLOW-UP duloxetine (From Cymbalta) AdvReac NEEDS Verified 04/02/25 09:50 FOLLOW-UP mirtazapine (From Remeron) AdvReac NEEDS Verified 04/02/25 09:50 FOLLOW-UP Family History Mother Hypertension Heart disease Diabetes Multiple sclerosis Clotting disorder Father CVA (cerebral vascular accident) Hypertension Heart disease Grandmother Heart disease Diabetes Hypercholesterolemia Grandfather Heart disease CVA (cerebral vascular accident) Surgical History Hx of surgical procedure Hx of dilation and curettage Hx of cholecystectomy History of tonsillectomy History of appendectomy Social History Smoking Status: Current every day smoker tobacco type: cigarettes Review of Systems (Anesthesia) ROS Narrative System reviewed and no additional complaints, except as documented.
[2025-04-02] MEDS: fentaNYL 100 MCG/2 ML Ampul 25 MCG IV (10:20)
--- NOTE | 2025-04-02 10:20 | RAD_ITS ---
PROCEDURE: CERV SPINE 4 OR 5 VIEWS 04/02/2025 REASON FOR EXAM: BLOCK MEDIAL BRANCH C4 C5 C6 C7 TECHNIQUE: Procedure Code: [facility] Modality: DX Procedure: CERV SPINE 4 OR 5 VIEWS COMPARISON: None FINDINGS: 3 images were obtained intraoperatively during block medial branch C4 through C7. Fluoro time: 9.9 seconds. Cumulative dose: 5.02 mGy. RAD/Cerv Spine 4 or 5 Views IMPRESSION: As per findings. Reading Location: [id number]
--- NOTE | 2025-04-02 10:26 | PCM.POST.ANE ---
Anesthesia: Postop Eval I Current Vital Signs Temperature: 98.2 F Pulse Rate: 79 Blood Pressure: 152/89 Respiratory Rate: 22 Pulse Ox: 98 Assessment Airway patent: Yes Spontaneous unlabored respirations: Yes nausea: No Vomiting: No Anesthesia Complication: No Fluid Hydration Crystalloid volume administer (ml): 200 Total IV fluid infused: 200 Progress Note Anesthesia document: Postop Eval 1 completed: Yes
--- NOTE | 2025-04-02 10:38 | OP.PCM_ITS ---
Operative Report (Standard) Operative Information Date of Procedure: 04/02/25 Pre-Operative Diagnosis: Cervical spondylosis, cervical degenerative disc disease, cervical facet arthropathy Post-Operative Diagnosis: Cervical spondylosis, cervical degenerative disc disease, cervical facet arthropathy Surgery/Procedure Performed: Left-sided cervical medial branch block at C4-5 C5- 6 C6-7 under fluoroscopic guidance logistical engineer: No Type of Anesthesia: Local MAC RN Documented Start/Stop Times: Operation Date: 04/02/25 11:10 Case Time Into Pre-Op 04/02/25 09:42 Anesthesia Start 04/02/25 10:15 Into Room 04/02/25 10:15 Procedure Start 04/02/25 10:20 Procedure End 04/02/25 10:23 Anesthesia End 04/02/25 10:25 Out of Room 04/02/25 10:25 Into Recovery 04/02/25 10:27 Procedure Start Time: 10:39 Procedure Stop Time: 10:39 Select all DRAINS/GRAFTS/IMPLANTS that apply: None Estimated Blood Loss: 1 Specimen collected: No Description of surgery: ANESTHESIA: MAC. BLOOD LOSS: Minimal. COMPLICATIONS: None. DESCRIPTION OF PROCEDURE: History and physical of today was reviewed. Risks and benefits of the procedure were explained. The patient understood and agreed to proceed. Informed consent was obtained. IV inserted per routine protocol. The patient was taken to the operating room and placed in the prone position with a pillow positioned underneath the chest. The neck area was prepped and draped in a sterile fashion using iodine x3. Under fluoroscopy guidance on an AP view, the C4 through C7 vertebral bodies were visualized at approximately 10- degree angle, starting on the left C4, ending on the left C7, passing through the C5 and C6. Using a 25-gauge 3-1/2-inch spinal needle, the needle was advanced via the skin. The tip of the needle was maneuvered and directed towards the epiphyseal junction of each corresponding vertebra. Once the tip of the needle was at the vicinity of the medial branch, the needle was pulled approximately 2 mm off the bone. After negative aspiration of blood or CSF and confirmation on AP, oblique as well as lateral view, a total of 4 mL of preservative-free 0.25% Marcaine with 80 mg of Depo-Medrol was injected in divided doses between those four levels. The needles were then removed intact. The patient experienced no sign or symptoms of intrathecal or intravascular injection. The patient experienced no paresthesia. The procedure was completed without any apparent difficulty or any complications. The patient appeared to tolerate it well. ASSESSMENT AND PLAN: This is a 40-year-old female with cervical spondylosis, cervical degenerative disc disease, cervical facet arthropathy status post left-sided cervical medial branch block at C4-C7, patient will continue her current medications, patient will follow-up in approximately 1-2 weeks for reevaluation. Surgical Findings: 0 Complications Complications: No Admit VTE Documentation VTE Present on Admission: No VTE Mechan Device Prophylaxis: None VTE Pharm Prophylaxis ordered?: No
--- NOTE | 2025-04-02 12:09 | POSTOPAN2_ITS ---
Anesthesia Postop Eval I Sum Postop Eval Completion status Anesthesia document: Postop Eval 1 completed: Yes Anesthesia Postop Eval I Summary Anesthesia Postop Eval I Summary: Anesthesia Postop Eval I: Assessment Summary Airway patent Yes 04/02/25 10:26 HAND [email or web address] Spontaneous unlabored Yes 04/02/25 10:26 HAND [email or web address].CSIR respirations Mental status nausea No 04/02/25 10:26 HAND [email or web address].[email or web address] Vomiting No 04/02/25 10:26 HAND [email or web address] Anesthesia Postop Eval I: Fluid Summary Crystalloid volume administer 200 04/02/25 10:26 HAND [email or web address].CSIR (ml) Colloids volume administered ( ml) Blood Product volume administered (ml) Total IV fluid infused 200 04/02/25 10:26 HAND [email or web address].CSIR Anesthesia Postop Eval I: Summary Notes Anesthesia Complication No 04/02/25 10:26 HAND [email or web address] Anesthesia Complication Comment: Post-operative progress note Anesthesia: Postop Eval II Evaluation Mental status: Awake and Calm Pain Level: 1 nausea: No Vomiting: No Complications Anesthesia Complication: No
--- NOTE | 2025-04-02 12:09 | PCM.POSTANE2 ---
Anesthesia Postop Eval I Sum Postop Eval Completion status Anesthesia document: Postop Eval 1 completed: Yes Anesthesia Postop Eval I Summary Anesthesia Postop Eval I Summary: Anesthesia Postop Eval I: Assessment Summary Airway patent Yes 04/02/25 10:26 MARKETING REGIONAL CONSULTANT.[email or web address] Spontaneous unlabored Yes 04/02/25 10:26 MARKETING REGIONAL CONSULTANT.CSIR respirations Mental status nausea No 04/02/25 10:26 MARKETING REGIONAL CONSULTANT.CSIR Vomiting No 04/02/25 10:26 MARKETING REGIONAL CONSULTANT.CSIR Anesthesia Postop Eval I: Fluid Summary Crystalloid volume administer 200 04/02/25 10:26 MARKETING REGIONAL CONSULTANT.CSIR (ml) Colloids volume administered ( ml) Blood Product volume administered (ml) Total IV fluid infused 200 04/02/25 10:26 MARKETING REGIONAL CONSULTANT.CSIR Anesthesia Postop Eval I: Summary Notes Anesthesia Complication No 04/02/25 10:26 MARKETING REGIONAL CONSULTANT.CSIR Anesthesia Complication Comment: Post-operative progress note Anesthesia: Postop Eval II Evaluation Mental status: Awake and Calm Pain Level: 1 nausea: No Vomiting: No Complications Anesthesia Complication: No
== END 2025-04-02 10:57 | disposition home or self-care (01) ==
LOC: SDC 09:36 → AC 10:13
PROVIDERS: PCP Internal Medicine; Referring Provider Anesthesiology Pain Medicine; Visit Provider Anesthesiology Pain Medicine
PROC: 3E0S3BZ Introduction of Anesthetic Agent into Epidural Space, Percutaneous Approach (ICD-10-PCS; CPT 62322; principal; 2025-04-02 11:05)
DX: M47.812 Spondylosis without myelopathy or radiculopathy, cervical region (principal); F31.9 Bipolar disorder, unspecified; E11.9 Type 2 diabetes mellitus without complications; M50.30 Other cervical disc degeneration, unspecified cervical region; M46.92 Unspecified inflammatory spondylopathy, cervical region; I10 Essential (primary) hypertension; M79.7 Fibromyalgia; F43.10 Post-traumatic stress disorder, unspecified; F42.9 Obsessive-compulsive disorder, unspecified; K21.9 Gastro-esophageal reflux disease without esophagitis; F41.9 Anxiety disorder, unspecified; E78.00 Pure hypercholesterolemia, unspecified; G89.29 Other chronic pain; G47.30 Sleep apnea, unspecified; F17.210 Nicotine dependence, cigarettes, uncomplicated; Z79.84 Long term (current) use of oral hypoglycemic drugs; Z79.899 Other long term (current) drug therapy
CPT/HCPCS: 64491; 64492; 64490; 72050; 82962; J2405

== ENCOUNTER 2025-06-11 07:47 | Day surgery (SDC) | payer MEDICAID, SELFPAY ==
[2025-06-11] VITALS (7 sets, daily range): BP systolic 123–154; BP diastolic 89–98; PULSE 94–106; RESP 16–18; TEMP 36.2–36.9; O2SAT 97–99; BMI 55.6
[2025-06-11 08:14] LABS: Internal QC Validated? YES +Cl - CLEAR BKGD; Pregnancy, Urine Negative Negative
[2025-06-11] MEDS: Lactated Ringers 1,000 ML 15 ML IV (08:22)
--- NOTE | 2025-06-11 08:30 | RAD_ITS ---
PROCEDURE: Intraoperative fluoroscopic services. 06/11/2025 REASON FOR EXAM: RADIO FREQUENCY ABLATION L4, L5, S1 RIGHT TECHNIQUE: Procedure Code: Intraoperative fluoroscopic services provided for right L4-L5 and L5-S1 radiofrequency ablation. Modality: DX Procedure: LUMBAR SPINE 2 OR 3 VIEWS 13.5 seconds of fluoroscopy. 10.08 mGy radiation dose. 9 images were submitted. COMPARISON: None FINDINGS: Intraoperative fluoroscopic services provided for right L4-L5 and L5-S1 radiofrequency ablation. RAD/Lumbar Spine 2 or 3 Views IMPRESSION: Intraoperative fluoroscopic services provided for right L4-L5 and L5-S1 radiofr equency ablation. Reading Location: [facility]
--- NOTE | 2025-06-11 08:37 | PCM.PRE.AN2 ---
ASA Classification* ASA Classification ASA Classification: 3 Assessment & Plan Anesthesia* Anesthesia Assessment Anesthesia Assessment: Discussed sedation and/or anesthesia options, risks, benefits, and alternatives with patient/parents/legal guardian/POA. Questions invited. The patient/parents/legal guardian/POA seems to understand and agrees to proceed with anesthesia plan. Reviewed the physical assessment, medical history, allergy history and patient home medications list prior to surgery/procedure/anesthetic and documented any changes. Performed airway and anesthesia risk assessments. Anesthesia Type Anesthesia Type: MAC History Source History Obtained from:: Patient and Chart Anesthesia Focused Assessment* Temperature: 98.4 F Pulse Rate: 106 Blood Pressure: 154/98 Respiratory Rate: 18 Pulse Ox: 98 Oxygen Delivery Method: Room Air Airway Assessment Mouth opens: >3 cm Mallampati Score: IV Teeth Condition: Missing (Patient missing a right lower molar. Rest are tight.) Neck Range of motion (ROM): Limited ROM (Somewhat Decreased) Labs Anesthesia Preop lab: CBC WBC, (4.4-11.0) 17.0 K/mm3 H 02/27/24, : RBC, (4.2-5.4) 5.43 M/mm3 H 02/27/24, :33 Hgb, (12.0-15.0) 16.4 g/dL H 02/27/24, :33 Hct, (37-47) 48.1 % H 02/27/24, :33 Plt Count, (150-450) 468 K/mm3 H 02/27/24, 01:33 CHEMISTRY Potassium, (3.5-5.1) 3.4 mmol/L L 02/27/24, : Sodium, (136-145) 138 mmol/L 02/27/24, :33 BUN, (7-18) 9 mg/dL 02/27/24, :33 Creatinine, (0.55-1.02) 0.67 mg/dL 02/27/24, : Glucose, (74-106) 224 mg/dL H 02/27/24, :33 POC Glucose, (74-106) 180 mg/dL H Today, 08:06 TSH, (0.358-3.74) 2.34 uIU/mL 01/23/20, 09:48 COAG Urine Test Negative Negative Today, 08:00 Pre-Assessment Diagnosis/Proposed Procedure Planned Operative Procedure(s): (R) Radio Frequency Ablation, AT MEDIAL BRANCH AT L4 L5 S1 UNDER FLUOROSCOPY Anesthesia History Anesthesia History - blueprinter: Anesthesia History - blueprinter Hx Hospitalization No 06/07/25 10:09 Any Problems With Anesthesia No 06/07/25 10:09 Cholinesterase deficiency No 06/07/25 10:09 You/Your Family Experience No 06/07/25 10:09 fever (hyperthermia) with Relationship Recent Exposure to Contagious No 06/11/25 08:13 Disease Does patient have nerve No 06/07/25 10:09 stimulator Patient instructed to have device shut off --Does patient have Pacemaker No 06/11/25 08:13 or ICD? When Was Last Pacemaker Check QUESTION #4 FULL TEXT: You/Your Family Experience fever (hyperthermia) with Anesthesia Last Oral Intake Last Oral intake: Last Oral Intake NPO since 21:00 06/11/25 08:13 Meds taken in AM with sips of Yes 06/11/25 08:13 water? Meds patient instructed to protonix, metoprolol 06/11/25 08:13 take am of surgery Any additional information?: Yes Meds taken in AM with sips of water?: Yes PONV PONV - blueprinter: PONV - blueprinter Female Yes 06/07/25 10:09 HX of Motion Sickness No 06/07/25 10:09 HX of N/V After Surgery No 06/07/25 10:09 Non-Smoker No 06/07/25 10:09 Duration of Surgery greater No 06/07/25 10:09 than 60 minutes Number of Risk Factors 1 06/07/25 10:09 PONV Score Low Risk 06/07/25 10:09 Height & Weight Height & Weight: Anesthesia: Height & Weight Height 5 ft 4 in 06/11/25 08:13 Weight: 147 kg 06/11/25 08:13 Body Mass Index (BMI) 55.6 06/11/25 08:13 Respiratory Assessment Respiratory Assessment - blueprinter: Respiratory Tract Infection Hx - blueprinter Hx Respiratory Tract Infection No 06/07/25 10:09 STOP Sleep Apnea STOP Sleep Apnea - blueprinter: STOP Sleep Apnea - blueprinter Hx Hypertension Yes: CONTROLLED ON MEDS 06/07/25 10:09 Hx Sleep Apnea Yes 06/07/25 10:09 CPAP No 06/07/25 10:09 BIPAP Yes: non compliant 06/07/25 10:09 Do you snore loudly (louder than talking or can be heard Do you often feel tired/ fatigued/ sleepy during daytime? Has anyone observed you stop breathing during sleep? STOP Results Positive 06/07/25 10:09 QUESTION #5 FULL TEXT : Do you snore loudly (louder than talking or can be heard through closed doors)? Tobacco Use History Tobacco Use History - blueprinter: Tobacco Use History - blueprinter Tobacco Use Smoking Status Current every day smoker 06/07/25 10:09 Hx Tobacco Use Yes 06/07/25 10:09 Years Smoking Packs Smoked per Day Smoking Cessation Date was within the last 15 years Hx Smoking Cessation Date Hx Smoking Cessation No 06/07/25 10:09 Counseling Any additional information?: Yes Smoking Status: Current every day smoker (Patient smoked today.) Hematologic Medial History Hematologic Hx - blueprinter: Hematologic Medical Hx - engine repairer service Hx of Blood Transfusion No 06/07/25 10:09 Hx of Transfusion in last 3 No 06/07/25 10:09 Months Date of Last Transfusion (if within last 3 months) Ever experience any problems No 06/07/25 10:09 with transfusion(s)? Specify any problems Hx of Preganancy in last 3 No 06/07/25 10:09 Months Nurse Filling Out Transfusion VCHRISTIN 06/07/25 10:09 & Questions: Date: 06/07/25 06/07/25 10:09 Time: 10:10 06/07/25 10:09 Patient unable to answer at this time (ie. confused, unrespo /Reproduction History /Reproductive History - blueprinter: /Reproductive Hx- blueprinter Hx Now No 06/07/25 10:09 Gestational Age (in weeks): EDC: Hx Hx Para Hx Section SAB No 06/07/25 10:09 Does the father of the baby or his family experience fever w Father of the baby Malignant Hypertension history comment Active Medications Active Medications: Current Medications Generic Name Dose Route Start Last Admin Trade Name Freq PRN Reason Stop Dose Admin Lactated Ringer's 1,000 mls @ 15 mls/hr 06/11/25 08:00 06/11/25 08:22 IV 15 mls/hr .Q48H ADRIANA Administration PFSH Medical History Bipolar disorder High cholesterol History of echocardiogram History of stress test Pleurodynia Fibromyalgia Wears glasses OCD (obsessive compulsive disorder) PTSD (post-traumatic stress disorder) Depression Marijuana use Back pain Dietary restriction Gastric reflux Smoker BiPAP (biphasic positive airway pressure) dependence Shortness of breath on exertion Leg cramps History of pain when walking History of edema Cardiology follow-up encounter Hypertension Anxiety Ulnar nerve entrapment Chronic neck and back pain Balance problem Fatigue Diabetes Home Medications ?Medication ?Instructions ?Recorded ?Last Taken ?Type lisinopril 10 mg tablet 10 mg PO DAILY 02/21/21 08/13/24 History pantoprazole 20 mg tablet,delayed 40 mg PO DAILY 03/02/21 06/11/25 History release (Protonix) dapagliflozin propanediol 5 mg 10 mg PO DAILY 07/23/21 06/06/25 History tablet (Farxiga) aripiprazole 10 mg tablet 20 mg PO DAILY 01/27/23 08/13/24 History hydrocodone-acetaminophen 5-325mg 1 tab PO BID PRN PRN Pain 03/11/23 08/13/24 History 5mg-325mg rosuvastatin 20 mg tablet 20 mg PO DAILY 03/11/23 08/13/24 History glipizide 5 mg tablet 10 mg PO DAILY 09/13/23 08/13/24 History metoprolol succinate 25 mg 25 mg PO DAILY 06/08/24 06/11/25 History tablet,extended release 24 hr tizanidine 4 mg tablet 4 mg PO TID PRN PRN muscle spasm 03/27/25 Unknown History Allergy/AdvReac Type Severity Reaction Status Date / Time adhesive tape Allergy BLISTERS Verified 06/11/25 08:12 gabapentin Allergy not alert Verified 06/11/25 08:12 amitriptyline AdvReac NEEDS Verified 06/11/25 08:12 FOLLOW-UP duloxetine (From Cymbalta) AdvReac NEEDS Verified 06/11/25 08:12 FOLLOW-UP mirtazapine (From Remeron) AdvReac NEEDS Verified 06/11/25 08:12 FOLLOW-UP Family History Mother Hypertension Heart disease Diabetes Multiple sclerosis Clotting disorder Father CVA (cerebral vascular accident) Hypertension Heart disease Grandmother Heart disease Diabetes Hypercholesterolemia Grandfather Heart disease CVA (cerebral vascular accident) Surgical History Hx of surgical procedure Hx of dilation and curettage Hx of cholecystectomy History of tonsillectomy History of appendectomy Social History Smoking Status: Current every day smoker tobacco type: cigarettes Review of Systems (Anesthesia) ROS Narrative System reviewed and no additional complaints, except as documented.
[2025-06-11] MEDS: Lidocaine 1% (30 ml sdv) 30 ML Vial (08:59)
--- NOTE | 2025-06-11 09:16 | PCM.OPRPT ---
Operative Report (Standard) Operative Information Date of Procedure: 06/11/25 Pre-Operative Diagnosis: Lumbosacral spondylosis, lumbosacral degenerative disc disease, lumbar facet arthropathy Post-Operative Diagnosis: Lumbosacral spondylosis, lumbosacral degenerative disc disease, lumbar facet arthropathy Surgery/Procedure Performed: Right sided lumbar radiofrequency ablation of the medial branch at L4, L5, S1 under fluoroscopic guidance examination proctor: No Type of Anesthesia: Local MAC RN Documented Start/Stop Times: Operation Date: 06/11/25 09:30 Case Time Into Pre-Op 06/11/25 07:56 Anesthesia Start 06/11/25 08:52 Into Room 06/11/25 08:52 Procedure Start 06/11/25 08:58 Procedure End 06/11/25 09:06 Anesthesia End 06/11/25 09:09 Out of Room 06/11/25 09:09 Into Recovery 06/11/25 09:12 Procedure Start Time: 09:17 Procedure Stop Time: 09:17 Select all DRAINS/GRAFTS/IMPLANTS that apply: None Estimated Blood Loss: 0 Specimen collected: No Description of surgery: ANESTHESIA: MAC. BLOOD LOSS: Minimal. COMPLICATIONS: None. DESCRIPTION OF PROCEDURE: History and physical of today was reviewed. Risks and benefits of the procedure were explained. The patient understood and agreed to proceed. Informed consent was obtained. IV inserted per routine protocol. The patient was taken to the operating room and placed in the prone position with a pillow positioned underneath the abdomen. The right side of her lower back was prepped and draped in a sterile fashion using iodine x3. Under fluoroscopy guidance in an oblique view, the L3 through S1 vertebral bodies were visualized. The skin and subcutaneous tissue was anesthetized with approximately 10 mL of 1% lidocaine using a 25-gauge regular needle. Under direct visualization on fluoroscopy at approximately 25-degree angle, starting on the right L3, ending on the right S1, passing through the L4 and L5, using a 20-gauge 15-cm with a 10-mm curved active-tip radiofrequency ablation needle, the needle was passed through the skin. The tip of the needle was maneuvered and directed towards the superior medial gutter of the transverse process at the vicinity of the medial branch. Once the tip of the needle was in contact with the bone, the needle was pulled approximately 2 mm off the bone. The stylette of each needle was then removed. After negative aspiration of blood or CSF and confirmation on AP, oblique as well as lateral view, the radiofrequency ablation probe was then inserted at each level. Impedance was then recorded at L3 to be 342 ohm, at L4 to be 289 ohm, at L5 to be 277 ohm, and at S1 to be 254 ohm. Motor evoked potential was then initiated to 2 Hz and 1.5 volt without any motor response at each corresponding level. The probe was then removed intact and a total of 6 mL of preservative-free 1% lidocaine was injected in divided doses between those four levels after negative aspiration of blood or CSF. The radiofrequency ablation probe was then reinserted. After confirmation on AP, oblique as well as lateral view, radiofrequency ablation was then initiated to 80 degree Celsius for 90 second at each level. Once concluded, the probe was then removed intact. A total of 6 mL of preservative-free 0.25% Marcaine with 40 mg of Depo-Medrol was injected in divided doses between those four levels. The needles were then removed intact. The patient experienced no sign or symptoms of intrathecal or intravascular injection. The patient experienced no paresthesia. The procedure was completed without any apparent difficulty or any complications. The patient appeared to tolerate it well. Sensory as well as motor exam was unchanged from prior to the procedure. ASSESSMENT AND PLAN: This is a 40-year-old female with lumbosacral spondylosis, lumbosacral degenerative disc disease, lumbar facet arthropathy, status post right sided lumbar radiofrequency ablation of the medial branch at L4-S1 under fluoroscopic guidance, patient will continue her current medications, patient will follow-up in approximately 2 weeks for reevaluation. Surgical Findings: 0 Complications Complications: No Admit VTE Documentation VTE Present on Admission: No VTE Mechan Device Prophylaxis: None VTE Pharm Prophylaxis ordered?: No
--- NOTE | 2025-06-11 09:20 | PCM.POST.ANE ---
Anesthesia: Postop Eval I Current Vital Signs Temperature: 97.9 F Pulse Rate: 99 Blood Pressure: 128/95 Respiratory Rate: 16 Pulse Ox: 98 Assessment Airway patent: Yes Spontaneous unlabored respirations: Yes nausea: No Vomiting: No Anesthesia Complication: No Fluid Hydration Crystalloid volume administer (ml): 200 Total IV fluid infused: 200 Progress Note Anesthesia document: Postop Eval 1 completed: Yes
--- NOTE | 2025-06-11 14:55 | POSTOPAN2_ITS ---
Anesthesia Postop Eval I Sum Postop Eval Completion status Anesthesia document: Postop Eval 1 completed: Yes Anesthesia Postop Eval I Summary Anesthesia Postop Eval I Summary: Anesthesia Postop Eval I: Assessment Summary Airway patent Yes 06/11/25 09:20 SOCK [email or web address] Spontaneous unlabored Yes 06/11/25 09:20 SOCK [email or web address] respirations Mental status nausea No 06/11/25 09:20 SOCK [email or web address] Vomiting No 06/11/25 09:20 SOCK [email or web address] Anesthesia Postop Eval I: Fluid Summary Crystalloid volume administer 200 06/11/25 09:20 SOCK [email or web address] (ml) Colloids volume administered ( ml) Blood Product volume administered (ml) Total IV fluid infused 200 06/11/25 09:20 SOCK [email or web address] Anesthesia Postop Eval I: Summary Notes Anesthesia Complication No 06/11/25 09:20 SOCK [email or web address] Anesthesia Complication Comment: Post-operative progress note Anesthesia: Postop Eval II Evaluation Mental status: Awake and Calm Pain Level: 0 nausea: No Vomiting: No Complications Anesthesia Complication: No
--- NOTE | 2025-06-11 14:55 | PCM.POSTANE2 ---
Anesthesia Postop Eval I Sum Postop Eval Completion status Anesthesia document: Postop Eval 1 completed: Yes Anesthesia Postop Eval I Summary Anesthesia Postop Eval I Summary: Anesthesia Postop Eval I: Assessment Summary Airway patent Yes 06/11/25 09:20 RESEARCH AND DEVELOPMENT [email or web address].[email or web address] Spontaneous unlabored Yes 06/11/25 09:20 RESEARCH AND DEVELOPMENT RESEARCHER.TNES respirations Mental status nausea No 06/11/25 09:20 RESEARCH AND DEVELOPMENT RESEARCHER.TNES Vomiting No 06/11/25 09:20 RESEARCH AND DEVELOPMENT RESEARCHER.[email or web address] Anesthesia Postop Eval I: Fluid Summary Crystalloid volume administer 200 06/11/25 09:20 RESEARCH AND DEVELOPMENT RESEARCHER.TNES (ml) Colloids volume administered ( ml) Blood Product volume administered (ml) Total IV fluid infused 200 06/11/25 09:20 RESEARCH AND DEVELOPMENT RESEARCHER.TNES Anesthesia Postop Eval I: Summary Notes Anesthesia Complication No 06/11/25 09:20 RESEARCH AND DEVELOPMENT RESEARCHER.TNES Anesthesia Complication Comment: Post-operative progress note Anesthesia: Postop Eval II Evaluation Mental status: Awake and Calm Pain Level: 0 nausea: No Vomiting: No Complications Anesthesia Complication: No
== END 2025-06-11 09:44 | disposition home or self-care (01) ==
LOC: SDC 07:48 → AC 07:48
PROVIDERS: Anesthesiology; PCP Internal Medicine; Referring Provider Anesthesiology Pain Medicine; Visit Provider Anesthesiology Pain Medicine
PROC: (CPT 64636; principal; 2025-06-11 09:25)
DX: M47.817 Spondylosis without myelopathy or radiculopathy, lumbosacral region (principal); M51.379 Other intervertebral disc degeneration, lumbosacral region without mention of lumbar back pain or lower extremity pain; M46.97 Unspecified inflammatory spondylopathy, lumbosacral region; Z79.84 Long term (current) use of oral hypoglycemic drugs; Z79.899 Other long term (current) drug therapy
CPT/HCPCS: 64636; 64635; 01992; 72100; 76000; 81025; 82962